=== PATIENT | female | born 1975 | race Caucasian/White ===

== ENCOUNTER 2017-10-27 11:49 | Emergency (ER) | payer OTHER ==
[2017-10-27] MEDS ORDERED: HYDROCODONE/APAP 10/325 TAB ONE (13:47)
--- NOTE | 2017-10-27 14:14 | RAD REPORT ---
EXAM DESCRIPTION: VAS - LEFT Extremity Venous Uni Ltd - 10/27/2017 2:02 pm CLINICAL HISTORY: Left leg pain and swelling COMPARISON: December 2015 TECHNIQUE: Real-time sonographic evaluation of the right lower extremity deep venous systems was per formed. FINDINGS: Normal compressibility, flow augmentation, phasic flow and spontaneous flow are identified in the left lower extremity common femoral, superficial femoral, popliteal and posterior tibial vein s. No intraluminal filling defects seen. IMPRESSION: No DVT in the left lower extremity.
--- NOTE | 2017-10-27 14:25 | EDPHYS ---
Physician Documentation [facility] Name: Sherita Patel Age: 42 yrs Sex: Female : 1975 Arrival Date: 10/27/2017 Time: 11:55 Bed 24 Private MD: ED Physician Abhi Arroyo HPI: 10/27 13:52 This 42 yrs old Female presents to ER via Ambulatory with complaints of Leg rn Pain. 13:52 The patient presents with pain, that is acute. rn 13:52 The complaints affect the lateral aspect of left thigh. Onset: The symptoms/episode rn began/occurred 1 week(s) ago. Modifying factors: The symptoms are alleviated by nothing. the symptoms are aggravated by nothing. Associated signs and symptoms: Pertinent positives: swelling, Pertinent negatives fever, weakness. Severity of symptoms: At their worst the symptoms were mild, in the emergency department the symptoms are unchanged. The patient has not experienced similar symptoms in the past. Reports has had blood clot before, not on blood thinners, reports left lateral leg pain for 1 week, no trauma, no fever, no signs of infection.. 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 - Social history:: Smoking status: Patient/guardian denies using tobacco. - Ebola Screening: : Patient negative for fever greater than or equal to 101.5 degrees Fahrenheit, and additional compatible Ebola Virus Disease symptoms Patient denies exposure to infectious person Patient denies travel to an Ebola-affected area in the 21 days before illness onset No symptoms or risks identified at this time. - Family history:: not pertinent. - Hospitalizations: : No recent hospitalization is reported. ROS: 13:52 Constitutional: Negative for fever, chills, and weight loss, Eyes: Negative for injury, rn pain, redness, and discharge, Cardiovascular: Negative for chest pain, palpitations, and edema, Respiratory: Negative for shortness of breath, cough, wheezing, and pleuritic chest pain, Abdomen/GI: Negative for abdominal pain, nausea, vomiting, diarrhea, and constipation, Back: Negative for injury and pain, MS/Extremity: + left lateral thigh pain Skin: Negative for injury, rash, and discoloration, Neuro: Negative for headache, weakness, numbness, tingling, and seizure. Exam: 13:52 Constitutional: This is a well developed, well nourished patient who is awake, alert, rn and in no acute distress. Cardiovascular: Regular rate and rhythm with a normal S1 and S2. No gallops, murmurs, or rubs. Normal PMI, no JVD. No pulse deficits. Respiratory: Lungs have equal breath sounds bilaterally, clear to auscultation and percussion. No rales, rhonchi or wheezes noted. No increased work of breathing, no retractions or nasal flaring. Skin: Warm, dry with normal turgor. Normal color with no rashes, no lesions, and no evidence of cellulitis. MS/ Extremity: Pulses equal, no cyanosis. Neurovascular intact. Full, normal range of motion. Equal circumference. Bilateral 1+ pitting edema bilateral lower ext Vital Signs: 12:12 BP 162 / 96; Pulse 89; Resp 17; Temp 97.9; Pulse Ox 99% on R/A; Weight 122.47 kg; aj Height 5 ft. 6 in. (167.64 cm); 14:43 BP 156 / 88; Pulse 80; Resp 15; Pulse Ox 99% on R/A; kr2 12:12 Body Mass Index 43.58 (122.47 kg, 167.64 cm) aj MDM: 13:04 Patient medically screened. rn 14:23 Differential diagnosis: superficial thrombophlebitis, DVT, edema, radiculopathy, rn neuropathy. Data reviewed: vital signs, nurses notes, radiologic studies, doppler, and as a result, I will discharge patient. Counseling: I had a detailed discussion with the patient and/or guardian regarding: the historical points, exam findings, and any diagnostic results supporting the discharge/admit diagnosis, radiology results, the need for outpatient follow up, to return to the emergency department if symptoms worsen or persist or if there are any questions or concerns that arise at home. Special discussion: I discussed with the patient/guardian in detail that at this point there is no indication for admission to the hospital. It is understood, however, that if the symptoms persist or worsen the patient needs to return immediately for re-evaluation. Based on the history and exam findings, there is no indication for further emergent testing or inpatient evaluation. I discussed with the patient/guardian the need to see the primary care provider for further evaluation of the symptoms. 10/27 13:19 Order name: Extremity Venous Uni Ltd ; Complete Time: 14:20 rn Administered Medications: 13:47 Drug: [place] 10 mg-325 mg 1 tabs Route: PO; kr2 14:42 Follow up: Response: No adverse reaction; Pain is decreased kr2 Disposition: 10/27/17 14:24 Discharged to Home. Impression: Pain in left leg. - Condition is Stable. - Discharge Instructions: Musculoskeletal Pain, Pain Without a Known Cause. - Medication Reconciliation Form, Thank You Letter, Antibiotic Education, Prescription Opioid Use form. - Follow up: Private Physician; When: As needed; Reason: Recheck today's complaints, Re-evaluation by your physician. - Problem is an ongoing problem. - Symptoms are unchanged. Signatures: Dispatcher [employer] EDInga Jorge RN RN aj Nieto, Roman, MD MD rn Reaves, Karey, RN RN kr2 Corrections: (The following items were deleted from the chart) 14:44 14:24 10/27/2017 14:24 Discharged to Home. Impression: Pain in left leg. Condition is kr2 Stable. Forms are Medication Reconciliation Form, Thank You Letter, Antibiotic Education, Prescription Opioid Use. Follow up: Private Physician; When: As needed; Reason: Recheck today's complaints, Re-evaluation by your physician. Problem is an ongoing problem. Symptoms are unchanged. rn
--- NOTE | 2017-10-27 14:25 | ER ---
Nurse's Notes [facility] Name: Sherita Patel Age: 42 yrs Sex: Female : 1975 Arrival Date: 10/27/2017 Time: 11:55 Bed 24 Private MD: Diagnosis: Pain in left leg Presentation: 10/27 12:08 Presenting complaint: Patient states: Pain to left outer thigh for 1 week. Denies SOB. aj Transition of care: patient was not received from another setting of care. Onset of symptoms was October 21, 2017. Risk Assessment: Do you want to hurt yourself or someone else? Patient reports no desire to harm self or others. Initial Sepsis Screen: Does the patient meet any 2 criteria? No. Patient's initial sepsis screen is negative. Does the patient have a suspected source of infection? No. Patient's initial sepsis screen is negative. Care prior to arrival: None. 12:08 Method Of Arrival: Ambulatory aj 12:08 Acuity: ERNST 4 aj Triage Assessment: 12:10 General: Appears in no apparent distress. comfortable, Behavior is calm, cooperative, aj appropriate for age. Pain: Complains of pain in lateral aspect of left thigh. Neuro: Level of Consciousness is awake, alert, obeys commands, Oriented to person, place, time, situation, Appropriate for age. Respiratory: Airway is patent Respiratory effort is even, unlabored, Respiratory pattern is regular, symmetrical. Derm: Skin is intact, is healthy with good turgor, Skin is pink, warm \T\ dry. normal. 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 - Social history:: Smoking status: Patient/guardian denies using tobacco. - Ebola Screening: : Patient negative for fever greater than or equal to 101.5 degrees Fahrenheit, and additional compatible Ebola Virus Disease symptoms Patient denies exposure to infectious person Patient denies travel to an Ebola-affected area in the 21 days before illness onset No symptoms or risks identified at this time. - Family history:: not pertinent. - Hospitalizations: : No recent hospitalization is reported. Screenin:24 Abuse screen: Denies threats or abuse. Denies injuries from another. Nutritional kr2 screening: No deficits noted. Tuberculosis screening: No symptoms or risk factors identified. Fall Risk None identified. Assessment: 13:21 General: Appears in no apparent distress. uncomfortable, obese, well groomed, Behavior kr2 is calm, cooperative, appropriate for age. Pain: Complains of pain in lateral aspect of left thigh Pain does not radiate. Pain currently is 6 out of 10 on a pain scale. Quality of pain is described as gnawing, Is continuous, Alleviated by nothing. Aggravated by touch. Neuro: Level of Consciousness is awake, alert, obeys commands, Oriented to person, place, time, situation, Appropriate for age. Cardiovascular: Capillary refill < 3 seconds in bilateral fingers Patient's skin is warm and dry. Cardiovascular: Edema is 1+ to bilateral lower legs and feet pitting to bilateral lower legs and feet. Respiratory: Airway is patent Respiratory effort is even, unlabored. GI: Abdomen is non-distended, obese. : Urine is cloudy. EENT: Oral mucosa is moist. Derm: Skin is intact, is healthy with good turgor, Skin is pink, warm \T\ dry. Derm: Musculoskeletal: Circulation, motion, and sensation intact. Injury Description: Patient denies injury. 14:42 Reassessment: Patient appears in no apparent distress at this time. Patient and/or kr2 family updated on plan of care and expected duration. Pain level reassessed. Patient is alert, oriented x 3, equal unlabored respirations, skin warm/dry/pink. Patient states feeling better. Patient states symptoms have improved. Vital Signs: 12:12 BP 162 / 96; Pulse 89; Resp 17; Temp 97.9; Pulse Ox 99% on R/A; Weight 122.47 kg; aj Height 5 ft. 6 in. (167.64 cm); 14:43 BP 156 / 88; Pulse 80; Resp 15; Pulse Ox 99% on R/A; kr2 12:12 Body Mass Index 43.58 (122.47 kg, 167.64 cm) aj ED Course: 11:55 Patient arrived in ED. as 12:09 Triage completed. aj 12:12 Arm band placed on left wrist. Patient placed in waiting room, Patient notified of wait aj time. 13:03 Nicole Hamilton, RN is Primary Nurse. kr2 13:04 Abhi Arroyo MD is Attending Physician. rn 13:25 Patient has correct armband on for positive identification. Bed in low position. Call kr2 light in reach. Side rails up X 1. Adult w/ patient. Pulse ox on. NIBP on. Door closed. Warm blanket given. Head of bed elevated. 14:02 Extremity Venous Uni Ltd US In Process Unspecified. EDMS 14:43 No provider procedures requiring assistance completed. Patient did not have IV access kr2 during this emergency room visit. Administered Medications: 13:47 Drug: [place] 10 mg-325 mg 1 tabs Route: PO; kr2 14:42 Follow up: Response: No adverse reaction; Pain is decreased kr2 Outcome: 14:24 Discharge ordered by . rn 14:43 Discharged to home ambulatory, with family. kr2 14:43 Condition: good 14:43 Discharge instructions given to patient, Instructed on discharge instructions, follow up and referral plans. Demonstrated understanding of instructions, follow-up care. 14:44 Patient left the ED. kr2 Signatures: Dispatcher [employer] EDInga Jorge RN RN aj Martinez, Amelia as Abhi Arroyo MD MD rn Reaves, Karey, RN RN kr2
[2017-10-27 14:55] VITALS: TEMP 97.9; O2SAT 99
[2017-10-27 14:57] VITALS: BP 156/88
== END 2017-10-27 14:44 | disposition home or self-care (01) ==
LOC: ER 11:49
DX: M79.605 Pain in left leg (principal); E11.9 Type 2 diabetes mellitus without complications; Z79.4 Long term (current) use of insulin; Z91.013 Allergy to seafood
CPT/HCPCS: 93971; 99284

== ENCOUNTER 2017-11-11 20:23 | Inpatient (IN) | payer OTHER ==
[2017-11-11 21:10] LABS: Absolute Lymphocytes (CBC) 0.8 K/uL (0.7-4.9); Absolute Monocytes 0.7 K/uL (0.1-1.3); Absolute Neutrophil 7.8 K/uL (1.8-8.0); Basophils % 0.2 % (0-1.3); Eosinophils % 2.3 % (0-4.4); Hematocrit 23.2 % (36.0-45.0); Lymphocytes % 8.7 % (15.3-44.8); MCH 29.8 pg (27.0-35.0); MPV 9.5 fL (7.6-11.3); Monocytes % 7.7 % (3.3-12.3); RBC Red Blood Cell Count 2.64 M/uL (3.86-4.86)
[2017-11-11 21:12] LABS: Protime INR 0.94
--- NOTE | 2017-11-11 21:20 | RAD REPORT ---
EXAM DESCRIPTION: RAD - Chest Single View - 11/11/2017 9:08 pm CLINICAL HISTORY: SOB Chest pain. COMPARISON: Chest Single View dated 12/19/2015Chest Single View dated 12/19/2015 FINDINGS: Portable technique limits examination quality. Mild interstitial pulmonary edema is suspected. The heart is mildly enlarged in size. No displaced fr actures. IMPRESSION: Mild CHF/volume overload pattern.
[2017-11-11 21:26] LABS: ALT/SGPT 31 U/L (12-78); AST/SGOT 29 U/L (15-37); Albumin 2.1 g/dL (3.4-5.0); Alkaline Phosphatase 81 U/L (45-117); BUN Blood Urea Nitrogen 45 mg/dL (7-18); Bicarbonate 24 mmol/L (21-32); Bilirubin Direct < 0.1 mg/dL (0-0.2); Bilirubin Total 0.1 mg/dL (0.2-1.0); Glucose Level 187 mg/dL (74-106); Magnesium 2.8 mg/dL (1.8-2.4); NT PRO-BNP 1529 pg/mL (<125); Potassium 4.2 mmol/L (3.5-5.1); Protein, Total 6.6 g/dL (6.4-8.2); Sodium Level 143 mmol/L (136-145)
--- NOTE | 2017-11-11 22:00 | RAD REPORT ---
EXAM DESCRIPTION: VAS - Extrem Venous W Compress Derek - 11/11/2017 9:51 pm CLINICAL HISTORY: SWELLING Bilateral leg edema and swelling. COMPARISON: Extremity Venous Uni Ltd dated 10/27/2017Extremity Venous Uni Ltd dated 10/27/2017 TECHNIQUE: Real-time sonographic interrogation of the left and right lower extremity deep venous sys tems was performed. FINDINGS: Normal compressibility, flow augmentation, phasic flow and spontaneous flow is identified in both the left and right lower extremity deep venous systems. IMPRESSION: No sonographic evidence of left or right lower extremity deep venous thrombosis.
[2017-11-11] MEDS ORDERED: FUROSEMIDE 40 MG/4 ML VIAL ONE (22:23)
[2017-11-11] MEDS ORDERED: FUROSEMIDE 20 MG/ 2ML VIAL ONE (22:23)
--- NOTE | 2017-11-11 22:23 | EDPHYS ---
Physician Documentation [facility] Name: Sherita Patel Age: 42 yrs Sex: Female : 1975 Arrival Date: 11/11/2017 Time: 20:24 Bed 30 Private MD: ED Physician Moisés Holloway HPI: 11/11 22:14 This 42 yrs old Female presents to ER via Wheelchair with complaints of gs Breathing Difficulty. 22:14 The patient has shortness of breath at rest. Onset: The symptoms/episode began/occurred gs gradually, 2 day(s) ago, and became worse. Duration: The symptoms are continuous. The patient's shortness of breath is aggravated by exertion. Associated signs and symptoms: Pertinent negatives: chest pain. Associated signs and symptoms: Pertinent positives: swelling extremities. Severity of symptoms: At their worst the symptoms were moderate in the emergency department the symptoms are unchanged. The patient has experienced similar episodes in the past, a few times. 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 - Social history:: Smoking status: Patient/guardian denies using tobacco. - Ebola Screening: : Patient negative for fever greater than or equal to 101.5 degrees Fahrenheit, and additional compatible Ebola Virus Disease symptoms Patient denies exposure to infectious person Patient denies travel to an Ebola-affected area in the 21 days before illness onset No symptoms or risks identified at this time. ROS: 22:14 All other systems are negative. gs Exam: 22:14 Head/Face: Normocephalic, atraumatic. Eyes: Pupils equal round and reactive to light, gs extra-ocular motions intact. Lids and lashes normal. Conjunctiva and sclera are non-icteric and not injected. Cornea within normal limits. Periorbital areas with no swelling, redness, or edema. ENT: Nares patent. No nasal discharge, no septal abnormalities noted. Tympanic membranes are normal and external auditory canals are clear. Oropharynx with no redness, swelling, or masses, exudates, or evidence of obstruction, uvula midline. Mucous membranes moist. Neck: Trachea midline, no thyromegaly or masses palpated, and no cervical lymphadenopathy. Supple, full range of motion without nuchal rigidity, or vertebral point tenderness. No Meningismus. Chest/axilla: Normal chest wall appearance and motion. Nontender with no deformity. No lesions are appreciated. 22:14 Abdomen/GI: Soft, non-tender, with normal bowel sounds. No distension or tympany. No guarding or rebound. No evidence of tenderness throughout. Back: No spinal tenderness. No costovertebral tenderness. Full range of motion. Skin: Warm, dry with normal turgor. Normal color with no rashes, no lesions, and no evidence of cellulitis. MS/ Extremity: Pulses equal, no cyanosis. Neurovascular intact. Full, normal range of motion. Neuro: Awake and alert, GCS 15, oriented to person, place, time, and situation. Cranial nerves II-XII grossly intact. Motor strength 5/5 in all extremities. Sensory grossly intact. Cerebellar exam normal. Normal gait. 22:14 Constitutional: The patient appears alert, awake, uncomfortable. 22:14 Cardiovascular: Rate: tachycardic, Rhythm: regular, Pulses: no pulse deficits are appreciated, Heart sounds: murmur, not appreciated. 22:14 Cardiovascular: Edema: 3+ edema to level of left midcalf and right midcalf. 22:14 ECG was reviewed by the Attending Physician. 22:14 Respiratory: the patient does not display signs of respiratory distress, Respirations: tachypnea, Breath sounds: rales, that are mild, are located in both bases. Vital Signs: 20:34 BP 157 / 90; Pulse 98; Resp 22; Temp 98.7; Pulse Ox 96% on R/A; Weight 122.47 kg; aj Height 5 ft. 6 in. (167.64 cm); 22:27 BP 134 / 118; Pulse 105; Resp 18; Pulse Ox 97% on R/A; tl3 23:26 BP 189 / 105; Pulse 105; Resp 18; Pulse Ox 98% on R/A; tl3 20:34 Body Mass Index 43.58 (122.47 kg, 167.64 cm) aj MDM: 20:32 Patient medically screened. 22:14 Differential diagnosis: CHF exacerbation, Chronic Obstructive Pulmonary Disease gs Myocardial Infarction pulmonary edema, Pulmonary Embolism. Data reviewed: vital signs, nurses notes. 22:14 ED course: hx pe elevated cr will give lovenox get vq in am, treated chf with lasix gs most likely diagnosis. 11/11 20:33 Order name: Basic Metabolic Panel; Complete Time: 21:30 11/11 20:33 Order name: CBC with Diff; Complete Time: 21:30 11/11 20:33 Order name: LFT's; Complete Time: 21:30 11/11 20:33 Order name: Magnesium; Complete Time: 21:30 11/11 20:33 Order name: NT PRO-BNP; Complete Time: 21:30 11/11 20:33 Order name: PT-INR; Complete Time: 21:30 11/11 20:33 Order name: Troponin (emerg Dept Use Only); Complete Time: 21:30 11/11 20:33 Order name: XRAY Chest (1 view); Complete Time: 21:30 11/11 20:33 Order name: D-Dimer; Complete Time: 21:30 11/11 21:15 Order name: US Extremity Venous W Compression Derek; Complete Time: 22:24 11/11 23:24 Order name: Urine Dipstick--Ancillary (enter results) [facility] 11/11 23:24 Order name: Urine --Ancillary (enter results) [facility] 11/11 20:33 Order name: EKG; Complete Time: 20:34 11/11 20:33 Order name: Cardiac monitoring; Complete Time: 21:05 11/11 20:33 Order name: EKG - Nurse/Tech; Complete Time: 22:24 11/11 20:33 Order name: IV Saline Lock; Complete Time: 21:05 11/11 20:33 Order name: Labs collected and sent; Complete Time: 21:05 11/11 20:33 Order name: O2 Per Protocol; Complete Time: 21:05 11/11 20:33 Order name: O2 Sat Monitoring; Complete Time: 21:05 11/11 20:33 Order name: Urine Dipstick-Ancillary (obtain specimen); Complete Time: 23:06 EC:14 Rate is 100 beats/min. Rhythm is regular. RI interval is normal. QRS interval is gs normal. QT interval is normal. No ST changes noted. Clinical impression: Abnormal EKG without significant change. Interpreted by me. Administered Medications: 22:10 Drug: Lasix 60 mg Route: IVP; Infused Over: 3 mins; Site: left antecubital; tl3 22:35 Follow up: Response: No adverse reaction tl3 22:40 Drug: Lovenox 1 mg/kg {Note: 120 mg.} Route: Sub-Q; Site: abdomen; tl3 23:06 Follow up: Response: No adverse reaction tl3 Disposition: 22:14 Critical Care:. Disposition: 11/11/17 22:22 Hospitalization ordered by Brendan Gallego for Inpatient Admission. Preliminary diagnosis is Acute combined systolic (congestive) and diastolic (congestive) heart failure. - Bed requested for Telemetry/MedSurg (Inpatient). - Status is Inpatient Admission. tl3 - Condition is Stable. - Problem is new. - Symptoms have improved. UTI on Admission? No Critical care time excluding procedures: 22:14 Critical care time: Bedside Care: 10 minutes, Consultation: 10 minutes, Family Intervention: 10 minutes. Total time: 30 minutes Signatures: Dispatcher [facility] Meagan Mesa RN RN kl Myers, Amanda, RN RN aj Starr, Gregory, MD MD Meghana Ramachandran RN RN tl3 Corrections: (The following items were deleted from the chart) 22:35 21:15 Chest For PE Angio+CT.RAD.BRZ ordered. [facility] 23:17 22:22 Hospitalization Ordered by Brendan Gallego MD for Inpatient Admission. Preliminary diagnosis is Acute combined systolic (congestive) and diastolic (congestive) heart failure. Bed requested for Telemetry/MedSurg (Inpatient). Status is Inpatient Admission. Condition is Stable. Problem is new. Symptoms have improved. UTI on Admission? No. 23:51 23:17 11/11/2017 22:22 Hospitalization Ordered by Brendan Gallego MD for Inpatient tl3 Admission. Preliminary diagnosis is Acute combined systolic (congestive) and diastolic (congestive) heart failure. Bed requested for Telemetry/MedSurg (Inpatient). Status is Inpatient Admission. Condition is Stable. Problem is new. Symptoms have improved. UTI on Admission? No. kl
--- NOTE | 2017-11-11 22:23 | ER ---
Nurse's Notes [facility] Name: Sherita Patel Age: 42 yrs Sex: Female : 1975 Arrival Date: 11/11/2017 Time: 20:24 Bed 30 Private MD: Diagnosis: Acute combined systolic (congestive) and diastolic (congestive) heart failure Presentation: 11/11 20:32 Presenting complaint: Patient states: Swelling to hands and feet with SOB for 2 days. aj Transition of care: patient was not received from another setting of care. Onset of symptoms was November 09, 2017. Risk Assessment: Do you want to hurt yourself or someone else? Patient reports no desire to harm self or others. Initial Sepsis Screen: Does the patient meet any 2 criteria? No. Patient's initial sepsis screen is negative. Does the patient have a suspected source of infection? No. Patient's initial sepsis screen is negative. Care prior to arrival: None. 20:32 Method Of Arrival: Wheelchair aj 20:32 Acuity: ERNST 3 aj Triage Assessment: 20:34 General: Appears in no apparent distress. comfortable, Behavior is calm, cooperative, aj appropriate for age. Pain: Denies pain. Neuro: Level of Consciousness is awake, alert, obeys commands, Oriented to person, place, time, situation, Appropriate for age. Cardiovascular: Edema is 3+ to left midcalf, left ankle, left foot, right midcalf, right ankle and right foot pitting to left ankle, left foot, right ankle and right foot. Respiratory: Reports shortness of breath at rest on exertion Airway is patent Respiratory effort is even, unlabored, Respiratory pattern is regular, symmetrical, Onset: The symptoms/episode began/occurred gradually, the patient has mild shortness of breath. Derm: Skin is intact, is healthy with good turgor, Skin is pale. 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 - Social history:: Smoking status: Patient/guardian denies using tobacco. - Ebola Screening: : Patient negative for fever greater than or equal to 101.5 degrees Fahrenheit, and additional compatible Ebola Virus Disease symptoms Patient denies exposure to infectious person Patient denies travel to an Ebola-affected area in the 21 days before illness onset No symptoms or risks identified at this time. Screenin:02 Abuse screen: Denies threats or abuse. Nutritional screening: No deficits noted. tl3 Tuberculosis screening: No symptoms or risk factors identified. Fall Risk None identified. Assessment: 21:02 General: Appears uncomfortable, obese, well groomed, well developed, well nourished, tl3 Behavior is calm, cooperative, appropriate for age. Pain: Denies pain. Neuro: No deficits noted. Level of Consciousness is awake, alert, obeys commands, Oriented to person, place, time, situation, Appropriate for age. Cardiovascular: Patient's skin is warm and dry. Respiratory: Airway is patent Respiratory effort is even, unlabored, Respiratory pattern is regular, symmetrical, Breath sounds are diminished bilaterally. Respiratory: Reports shortness of breath air hunger since yesterday. GI: No signs and/or symptoms were reported involving the gastrointestinal system. : No signs and/or symptoms were reported regarding the genitourinary system. EENT: No signs and/or symptoms were reported regarding the EENT system. Derm: No signs and/or symptoms reported regarding the dermatologic system. Musculoskeletal: No signs and/or symptoms reported regarding the musculoskeletal system. 22:27 Reassessment: Patient appears in no apparent distress at this time. No changes from tl3 previously documented assessment. Patient and/or family updated on plan of care and expected duration. Pain level reassessed. Patient is alert, oriented x 3, equal unlabored respirations, skin warm/dry/pink. pt resting quietly. 22:41 General: Dr Gallego at bedside. tl3 23:26 Cardiovascular: Rhythm is regular. tl3 23:26 Reassessment: Patient appears in no apparent distress at this time. No changes from tl3 previously documented assessment. Patient and/or family updated on plan of care and expected duration. Pain level reassessed. Patient is alert, oriented x 3, equal unlabored respirations, skin warm/dry/pink. report called to Gretchen GARCIAS. Vital Signs: 20:34 BP 157 / 90; Pulse 98; Resp 22; Temp 98.7; Pulse Ox 96% on R/A; Weight 122.47 kg; aj Height 5 ft. 6 in. (167.64 cm); 22:27 BP 134 / 118; Pulse 105; Resp 18; Pulse Ox 97% on R/A; tl3 23:26 BP 189 / 105; Pulse 105; Resp 18; Pulse Ox 98% on R/A; tl3 20:34 Body Mass Index 43.58 (122.47 kg, 167.64 cm) aj ED Course: 20:24 Patient arrived in ED. ds1 20:30 Moisés Holloway MD is Attending Physician. gs 20:33 Triage completed. aj 20:34 Arm band placed on left wrist. Patient placed in an exam room. aj 21:01 Meghana Ramachandran, RN is Primary Nurse. tl3 21:02 Patient has correct armband on for positive identification. Bed in low position. Call tl3 light in reach. Side rails up X 1. Adult w/ patient. Pulse ox on. NIBP on. 21:02 No provider procedures requiring assistance completed. Inserted saline lock: 20 gauge tl3 in left antecubital area, using aseptic technique. Blood collected. 21:05 XRAY Chest (1 view) Sent. tl3 21:08 X-ray completed. Portable x-ray completed in exam room. Patient tolerated procedure bb2 well. 21:08 XRAY Chest (1 view) In Process Unspecified. EDMS 21:12 Notified ED physician of a critical lab result(s). hemoglobin of 7.8. fc 21:13 Notified ED physician of a critical lab result(s). d dimer 2288. fc 21:18 Radiology exam delayed due to lab results not completed at this time. (BUN/Creatinine). vm2 21:51 US Extremity Venous W Compression Derek In Process Unspecified. EDMS 21:53 Ultrasound completed. Patient tolerated well. aa4 22:22 Brendan Gallego MD is Hospitalizing Provider. 22:27 EKG done, by ED staff, reviewed by Moisés Holloway MD. tl3 23:26 Patient admitted, IV remains in place. tl3 23:31 Urine --Ancillary (enter results) Sent. tl3 23:31 Urine Dipstick--Ancillary (enter results) Sent. tl3 Administered Medications: 22:10 Drug: Lasix 60 mg Route: IVP; Infused Over: 3 mins; Site: left antecubital; tl3 22:35 Follow up: Response: No adverse reaction tl3 22:40 Drug: Lovenox 1 mg/kg {Note: 120 mg.} Route: Sub-Q; Site: abdomen; tl3 23:06 Follow up: Response: No adverse reaction tl3 Outcome: 22:22 Decision to Hospitalize by Provider. gs 23:26 Admitted to Tele accompanied by tech, via stretcher, with chart, Report called to tl3 Gretchen GARCIAS 23:26 Condition: stable 23:26 Instructed on the need for admit, Demonstrated understanding of instructions. 23:51 Patient left the ED. tl3 Signatures: Dispatcher [employer] EDInga Jorge, RN RN Yany Pacheco, RN RN Elif Marquez ds1 Inga Jacobo aa4 Cristina Barahona 2 Moisés Holloway MD MD Lisa Heath 2 Meghana Ramachandran, RN RN tl3
[2017-11-11] MEDS ORDERED: ENOXAPARIN 100 MG/ML SYR SQ ONE (22:37)
[2017-11-11] MEDS ORDERED: ENOXAPARIN 30 MG/0.3 ML SQ ONE (22:38)
--- NOTE | 2017-11-11 23:10 | P.HP ---
Certification for Inpatient Patient admitted to: Inpatient With expected LOS: >2 Midnights Practitioner: I am a practitioner with admitting privileges, knowledge of patient current condition, hospital course, and medical plan of care. Services: Services provided to patient in accordance with Admission requirements found in Title 42 Section 412.3 of the Code of Federal Regulations Patient History Date of Service: 11/11/17 Reason for admission: Dyspnea/CHF History of Present Illness: Ms Patel a 42-year-old woman with history of PE, is independent diabetic mellitus, asthma, chronic anemia, for about 1 month ago she starts noticing lower extremity swelling. The over the time, she was getting worse. Then she started having shortness of breath which was progressively getting worse. Today she came to ED because she was unable to sleep flat, due to SOB, as her legs got more swollen. ED workup was remarkable for elevated D-dimer, hemoglobin of 7.6 mg/dl. The patient denied any black or bloody stools. She already had an EGD and a colonoscopy which were negative. She denied any chest pain, fever or chills. Allergies shellfish derived Allergy (Verified 12/18/15 23:51) Rash Home medications list reviewed: Yes Home Medications: Insulin Glargine,Hum.rec.anlog [Toujeo Solostar] 40 units SQ BID 12/19/15 Insulin Lispro [Humalog] 18 units SQ ACHS 12/19/15 Lisinopril [Prinivil*] 1 tab PO DAILY 12/19/15 Fluticasone/Salmeterol [Advair 250/50 Diskus*] 1 puff IH BID #1 disk 12/20/15 - Past Medical/Surgical History Diabetic: Yes -: Diabetic -: Seizures -: Stroke -: Prev seizure 2 yrs ago -: Asthma -: Tubal ligation -: c section - Family History Mother -: Hypertension - Social History Smoking Status: Former smoker Alcohol use: Yes CD- Drugs: No Caffeine use: Yes Place of Residence: Home Review of Systems 10-point ROS is otherwise unremarkable Physical Examination - Physical Exam General: Alert, In no apparent distress HEENT: Atraumatic, PERRLA, Mucous membr. moist/pink, EOMI, Sclerae nonicteric Neck: Supple, 2+ carotid pulse no bruit, No LAD, Without JVD or thyroid abnormality Respiratory: Clear to auscultation bilaterally, Normal air movement Cardiovascular: Regular rate/rhythm, Normal S1 S2 Gastrointestinal: Normal bowel sounds, No tenderness Musculoskeletal: No tenderness, Swelling Integumentary: Skin breakdown, Skin lesion, Diabetic ulcer Neurological: Normal speech, Normal strength at 5/5 x4 extr, Normal tone, Normal affect Lymphatics: No axilla or inguinal lymphadenopathy - Studies Laboratory Data (last 24 hrs) 11/11/17 20:50: PT 11.1, INR 0.94 11/11/17 20:50: WBC 9.6, Hgb 7.8 L*, Hct 23.2 L, Plt Count 284 11/11/17 20:50: Sodium 143, Potassium 4.2, BUN 45 H, Creatinine 1.60 H, Glucose 187 H, Magnesium 2.8 H, Total Bilirubin 0.1 L, AST 29, ALT 31, Alkaline Phosphatase 81 Assessment and Plan - Problems (Diagnosis) (1) Diabetes mellitus Current Visit: Yes Status: Acute Qualifiers: Diabetes mellitus type: type 2 Diabetes mellitus fdc insulin use: with fdc use Diabetes mellitus complication status: with skin complications Diabetes mellitus complication detail: with other skin complication Qualified Code(s): E11.628 - Type 2 diabetes mellitus with other skin complications; Z79.4 - manager intermediate (current) use of insulin (2) CHF (congestive heart failure) Current Visit: Yes Status: Acute Qualifiers: Heart failure type: unspecified Heart failure chronicity: unspecified Qualified Code(s): I50.9 - Heart failure, unspecified (3) Elevated d-dimer Current Visit: Yes Status: Acute (4) Shortness of breath Current Visit: No Status: Acute (5) Chronic anemia Current Visit: Yes Status: Acute - Plan The patient will be admitted to the hospital due to CHF exacerbation. She has elevated D-dimer as well, due to abnormal kidney function, she cannot have a CTA of the chest. Will order a V/Q scan in the morning to rule out PE. Will start empiric full dose of Lovenox, IV Lasix. Will order echocardiogram in a.m. She has history of chronic anemia, will order iron studies. - Advance Directives Does patient have a Living Will: No Does patient have a Durable POA for Healthcare: No - Code Status/Comfort Care Code Status Assessed: Yes Code Status: Full Code
[2017-11-12 00:03] LABS: Urine Blood 1+ (NEG); Urine Glucose TRACE (NEG); Urine Protein 3+ (NEG); Urine Specific Gravity >1.030 (1.005-1.030); Urine pH 5.5 (5.0-7.0)
[2017-11-12] MEDS ORDERED: ONDANSETRON 4 MG/2 ML VIAL IV PRN (00:34)
[2017-11-12] MEDS ORDERED: HYDRALAZINE HCL 20 MG/ML VIAL IV ONE (00:39)
[2017-11-12] MEDS: FUROSEMIDE 40 MG/4 ML VIAL IV SCH ×3 (01:00→22:01)
[2017-11-12] MEDS: ALBUTEROL 2.5 MG/3 ML NEB SOL NEB PRN ×3 (01:45→19:50)
[2017-11-12] MEDS: IPRATROPIUM BROM 0.5MG/2.5ML NEB PRN ×2 (01:45→08:06)
[2017-11-12 06:05] LABS: Absolute Lymphocytes (CBC) 0.7 K/uL (0.7-4.9); Absolute Monocytes 0.6 K/uL (0.1-1.3); Absolute Neutrophil 7.7 K/uL (1.8-8.0); Basophils % 0.2 % (0-1.3); Eosinophils % 0.9 % (0-4.4); Hematocrit 21.8 % (36.0-45.0); Lymphocytes % 7.5 % (15.3-44.8); MCH 30.2 pg (27.0-35.0); MCV 86.8 fL (80-100); MPV 10.2 fL (7.6-11.3); Monocytes % 6.3 % (3.3-12.3); RBC Red Blood Cell Count 2.51 M/uL (3.86-4.86)
[2017-11-12 06:27] LABS: Ferritin 230.5 ng/mL (8-388); Potassium 4.1 mmol/L (3.5-5.1)
[2017-11-12] MEDS: INSULIN -REGULAR HUMAN 50 UNIT/0.5 ML ML SQ SCH ×4 (07:30→21:00)
--- NOTE | 2017-11-12 08:30 | EKG ---
Test Date: 2017-11-11 Test Time: 22:08:19 Control Engineer: TL MEASUREMENT RESULTS: Intervals: Rate: 103 AL: 154 QRSD: 84 QT: 348 QTc: 455 Fallentimber: P: 111 AL: 154 QRS: 165 T: 143 INTERPRETIVE STATEMENTS: Suspect arm lead reversal, interpretation assumes no reversal Sinus tachycardia Right axis deviation Abnormal ECG Compared to ECG 12/19/2015 06:59:39 Right-axis deviation now present Sinus rhythm no longer present Electronically Signed On 11-12-17 07:47:08 CDT by Rufus Frankel
--- NOTE | 2017-11-12 08:41 | RAD REPORT ---
EXAM DESCRIPTION: NM - Vent Perfusion VQ Scan - 11/12/2017 7:40 am CLINICAL HISTORY: Chest pain, shortness of breath COMPARISON: Chest film November 11, V/Q study December 2015 TECHNIQUE: The patient was administered 20.2 mCi Xenon 133 gas with posterior projection inspiration , equilibrium, and washout views obtained. The patient was then administered 7.0 mCi Tc-99m MAA label ed RBCs followed by standard 8 view protocol. FINDINGS: There is good distribution of the Xenon with no ventilation defects identified. No signifi cant air-trapping seen. Perfusion images show no defects suspicious for pulmonary emboli. There are normal areas of diminish ed activity related to prominence of overlying soft tissues. IMPRESSION: No evidence of pulmonary embolism. No ventilation defect or significant air trapping.
[2017-11-12] MEDS ORDERED: CYANOCOBALAMIN 1000MCG/ML INJ IM ONE ×2 (09:53→11:15)
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
[2017-11-12] MEDS ORDERED: GLUCAGON 1 MG/VIAL IM PRN (10:11)
[2017-11-12] MEDS ORDERED: D50W 25 GM/50 ML SYRINGE IV PRN (10:11)
--- NOTE | 2017-11-12 10:42 | RAD REPORT ---
EXAM DESCRIPTION: RAD - Chest Single View - 11/12/2017 10:25 am CLINICAL HISTORY: CHF COMPARISON: November 11 TECHNIQUE: AP portable chest image was obtained 1014 hours . FINDINGS: Lung volumes are low. Interstitial and alveolar opacification is present similar or fracti onally worse from the prior study. Trachea is midline. Heart and vasculature are normal. No measurabl e pleural effusion and no pneumothorax. No gross bony abnormality seen. No acute aortic findings susp ected. IMPRESSION: CHF/volume overload pattern similar or slightly worse than prior day study.
--- NOTE | 2017-11-12 10:42 | CON ---
Chief Complaint: Weight gain, swelling. History Of Present Illness: Ms. Patel is a 42-year-old woman, who has longstanding diabetes. She s ays that over the last month she has gained 40 pounds. She is seeing her weight go up despite taking furosemide 20 mg once a day. She has underlying hypertension and diabetes. She gives a remote hist ory of pulmonary embolus, but the test for pulmonary embolus now is negative. She has chronic anemia . It is normochromic, normocytic, but at the same time she is iron deficient and she may also be B12 deficient and maybe deficiencies of 2 nutrients contributing to the anemia as well as the anemia of chronic disease. Her B12 level is just 276. Outpatient medications have been lisinopril, insulin, A trovent, furosemide, atorvastatin, doxazosin, amlodipine, and albuterol. She had an echocardiogram i 2015 when a similar presentation occurred. She was not as anemic back then. Her hemoglobin was ar ound 10, now it is in the 7s, but her echocardiogram that was normal. The patient does not use tobac co. She uses no illegal drugs. Not having chest pain. Physical Examination: Vital Signs: She is 5 feet 6 inches, 310 pounds. Lungs: Reveal bilateral crackles in the lung bases. Heart: Reveals a regular rate and rhythm. No murmur, rub, or gallop. Abdomen: Soft. Extremities: Edematous. She has presacral edema and abdominal wall edema. Diagnostic Data: The chest x-ray reveals mild interstitial edema, blunted costophrenic angles. Basi c, I think it reveals perhaps mild congestive heart failure. Most of these findings could also be ex plained by abnormal penetration. Impression: The patient is volume overloaded. I think her situation is probably high output cardiac congestive heart failure, but her ejection fraction is normal or hyperdynamic. I would consider giv ing her large doses of B12 to see if that would get her hemoglobin up some. She needs a lot of diuresis and repeat echo. SH/MODL Voice ID: [id number] Report ID: [id number]
[2017-11-12] MEDS ORDERED: VANCOMYCIN 2 GM in NA CHLORIDE 0.9% 500 ML IVPB SCH (11:00)
--- NOTE | 2017-11-12 11:12 | RAD REPORT ---
EXAM DESCRIPTION: US - Renal Ultrasound-Complete - 11/12/2017 10:55 am CLINICAL HISTORY: Acute renal failure, chronic renal disease COMPARISON: None. FINDINGS: The right kidney measures 11.7 x 5.7 x 6.7 cm. The left kidney measures 11.2 x 6.6 x 5.9 cm. Renal cortical thickness and echogenicity are normal. No hydronephrosis or suspicious renal mass. No bladder wall thickening or mass. No intraluminal stone or mass. IMPRESSION: No hydronephrosis or suspicious renal mass. No other significant findings.
--- NOTE | 2017-11-12 12:11 | ECHO ---
HEIGHT: 5 ft 6 in WEIGHT: 310 lb 0 oz DATE OF STUDY: 11/12/[address]: 2-DIMENSIONAL: YES M.MODE: YES DOPPLER: YES COLOR FLOW: YES TDS: NO PORTABLE: NO DEFINITY: NO BUBBLE STUDY: NO DIAGNOSIS: CONGESTIVE HEART FAILURE CARDIAC HISTORY: CATHERIZATION: NO SURGERY: NO PROSTHETIC VALVE: NO PACEMAKER: NO MEASUREMENTS (cm) DIASTOLIC (NORMALS) SYSTOLIC (NORMALS) IVSd 1.1 (0.6-1.2) LA Diam 3.9 (1.9-4.0) LVEF 64% LVIDd 5.4 (3.5-5.7) LVIDs 3.5 (2.0-3.5) %FS 35% LVPWd 1.1 (0.6-1.2) Ao Diam 3.0 (2.0-3.7) 2 DIMENSIONAL ASSESSMENT: RIGHT ATRIUM: NORMAL LEFT ATRIUM: NORMAL RIGHT VENTRICLE: NORMAL LEFT VENTRICLE: NORMAL TRICUSPID VALVE: NORMAL MITRAL VALVE: NORMAL PULMONIC VALVE: NORMAL AORTIC VALVE: NORMAL PERICARDIAL EFFUSION: TRACE AORTIC ROOT: NORMAL LEFT VENTRICULAR WALL MOTION: NORMAL. DOPPLER/COLOR FLOW: NORMAL. COMMENTS: NORMAL LEFT VENTRICULAR EJECTION FRACTION. TRACE PERICARDIAL EFFUSION. OTHERWISE NORMAL 2D ECHOCARDIOGRAM WITH DOPPLER. TECHNOLOGIST: DODIE PAREDES
--- NOTE | 2017-11-12 12:54 | P.CNS ---
Date of Consult: 11/12/17 Primary Care Provider: Dr. Barrett([facility]); GI-Dr. Black Chief Complaint: Dyspnea/CHF History of Present Illness: Patient is 42 years of age patient is 42 years of age she has been complaining of swelling of lower extremity for the past 2 months patient has had shortness of breath on exertion for the past 2-3 years and was recently treated with Lasix he also experienced a burning and her leg near the ankle region on the right side form more smoker no prior history of cardiopulmonary problems recent diagnosis of anemia and was undergoing a workup by GI breathing has improved Allergies shellfish derived Allergy (Mild, Verified 11/11/17 23:57) Itching Home Medications: Insulin Glargine,Hum.rec.anlog [Toujeo Solostar] 20 units SQ BID 12/19/15 Lisinopril [Prinivil*] 2 tab PO DAILY 12/19/15 Albuterol Inhaler [Ventolin Inhaler*] 2 puff IH Q6HP PRN 11/12/17 Amlodipine [Norvasc*] 20 mg PO DAILY 11/12/17 Atorvastatin Calcium 20 mg PO BEDTIME 11/12/17 Doxazosin [Cardura*] 3 mg PO BEDTIME 11/12/17 Furosemide 20 mg PO DAILY 11/12/17 Insulin Lispro [Humalog Kwikpen U-100] See Protocol SQ TID 11/12/17 Ipratropium [Atrovent 0.03% (21MCG)/[place] Nasal*] 2 spray IH BID PRN 11/12/17 Multivitamin [Multivitamins] 1 cap PO DAILY 11/12/17 - Past Medical/Surgical History Diabetic: Yes -: Diabetic -: Seizures -: Stroke -: Prev seizure 2 yrs ago -: Asthma -: PE 12/2015 -: Renal Disease -: Hyperlipidemia -: Tubal ligation -: c section x 2 - Family History Mother Medical History: Hypertension - Social History Alcohol use: Yes CD- Drugs: No Caffeine use: Yes Place of Residence: Home Review of Systems 10-point ROS is otherwise unremarkable General: Weakness Respiratory: Shortness of Breath Cardiovascular: Edema Physical Examination Temp Pulse Resp BP Pulse Ox 97.7 F 108 H 20 181/78 H 91 11/12/17 12:00 11/12/17 12:00 11/12/17 12:00 11/12/17 12:00 11/12/17 12:00 General: Alert, Oriented x3 HEENT: Atraumatic Neck: Supple Respiratory: Clear to auscultation bilaterally Cardiovascular: Normal S1 S2, Edema (+edema) Gastrointestinal: Normal bowel sounds, Soft and benign Laboratory Data (last 24 hrs) 11/11/17 20:50: PT 11.1, INR 0.94 11/11/17 20:50: WBC 9.6, Hgb 7.8 L*, Hct 23.2 L, Plt Count 284 11/11/17 20:50: Sodium 143, Potassium 4.2, BUN 45 H, Creatinine 1.60 H, Glucose 187 H, Magnesium 2.8 H, Total Bilirubin 0.1 L, AST 29, ALT 31, Alkaline Phosphatase 81 - Problems (1) Diastolic heart failure Current Visit: Yes Status: Acute Plan: I strongly suspect that she has diastolic dysfunction continue with Lasix at spironolactone patient's BNP is elevated chest x-ray under penetrated blood pressure elevated V/Q scan negative lower extremity Dopplers also negative patient has a slight fever she also has some protein urea I suspect is from a diabetes she appears to have abundant a cellulitis can change to p.o. antibiotics reduce dose of flow on ox to 40 mg S q.day Dc antibiotics meter changes records clerk to p.o. level Floxin room-air saturation satisfactory Qualifiers: Heart failure chronicity: acute on chronic Qualified Code(s): I50.33 - Acute on chronic diastolic (congestive) heart failure
[2017-11-12] MEDS ORDERED: levoFLOXacin 500 MG TAB PO SCH (14:00)
[2017-11-12] MEDS ORDERED: ENOXAPARIN 40 MG/0.4 ML SQ SCH (14:00)
[2017-11-12 14:14] LABS: Urine Appearance CLOUDY; Urine Bilirubin NEGATIVE (NEG); Urine Blood 2+ (NEG); Urine Color YELLOW; Urine Glucose 1+ (NEG); Urine Protein 3+ (NEG); Urine Specific Gravity 1.015 (1.005-1.030); Urine Urobilinogen 0.2 mg/dL (0.2-1.0); Urine pH 5.5 (5.0-7.0)
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
[2017-11-12 14:19] LABS: Urine Microscopic Reflex ORDER UMIC
[2017-11-12] MEDS: ACETAMINOPHEN 500 MG TAB PO PRN ×2 (14:33→22:53)
[2017-11-12] MEDS: SPIRONOLACTONE 25 MG TABLET PO SCH (14:33)
[2017-11-12 14:36] LABS: Urine Bacteria 20-50 /HPF (<20); Urine Culture Reflex Order NOT NEEDED
[2017-11-12 14:37] LABS: Urine Amorphous Sediment 1+ /HPF (NONE SEEN); Urine Mucus 1+ /HPF (NONE SEEN)
[2017-11-12] MEDS ORDERED: PIPER/TAZO/NS 3.375gm 3.375 GM/100 ML BAG IVPB SCH (17:00)
[2017-11-12] MEDS ORDERED: ENOXAPARIN 100 MG/ML SYR SQ SCH (18:00)
[2017-11-12] MEDS: ARFORMOTEROL TARTRATE 15 MCG/2 ML VIAL.NEB NEB SCH (19:50)
[2017-11-12] MEDS ORDERED: DOXAZOSIN 2 MG TAB PO SCH (21:00)
[2017-11-12] MEDS ORDERED: FERROUS SULFATE 325 MG TAB PO SCH (21:00)
[2017-11-12] MEDS: METOPROLOL TAR 50 MG TAB PO SCH (22:01)
[2017-11-12] MEDS: INSULIN DETEMIR 100 UNIT/1 ML INSULIN SQ SCH (22:01)
[2017-11-12] MEDS: HYDRALAZINE HCL 25 MG TABLET PO SCH (22:02)
[2017-11-12] MEDS: ATORVASTATIN 20 MG TAB PO SCH (22:03)
[2017-11-12] MEDS: METOLAZONE 5 MG TABLET PO SCH (22:05)
[2017-11-13 05:11] LABS: Absolute Lymphocytes (CBC) 0.9 K/uL (0.7-4.9); Absolute Monocytes 0.5 K/uL (0.1-1.3); Absolute Neutrophil 6.1 K/uL (1.8-8.0); Basophils % 0.5 % (0-1.3); Eosinophils % 0.8 % (0-4.4); Lymphocytes % 12.1 % (15.3-44.8); MCH 30.1 pg (27.0-35.0); MCV 88.2 fL (80-100); MPV 9.6 fL (7.6-11.3); Monocytes % 6.9 % (3.3-12.3); RBC Red Blood Cell Count 2.35 M/uL (3.86-4.86)
[2017-11-13 05:13] LABS: Hematocrit 20.7 % (36.0-45.0)
[2017-11-13 05:31] LABS: Magnesium 2.4 mg/dL (1.8-2.4); Phosphorus 4.7 mg/dL (2.5-4.9); Potassium 4.3 mmol/L (3.5-5.1)
[2017-11-13] MEDS: PANTOPRAZOLE 40MG TABLET PO SCH (05:56)
[2017-11-13] MEDS: INSULIN -REGULAR HUMAN 50 UNIT/0.5 ML ML SQ SCH ×4 (07:30→21:18)
[2017-11-13] MEDS: ARFORMOTEROL TARTRATE 15 MCG/2 ML VIAL.NEB NEB SCH ×2 (07:59→21:30)
[2017-11-13] MEDS: IPRATROPIUM BROM 0.5MG/2.5ML NEB PRN (07:59)
[2017-11-13] MEDS: VITAMIN D 5,000 UNIT CAP PO SCH (08:20)
[2017-11-13] MEDS: METOPROLOL TAR 50 MG TAB PO SCH ×2 (08:21→21:17)
[2017-11-13] MEDS: SPIRONOLACTONE 25 MG TABLET PO SCH (08:22)
[2017-11-13] MEDS: HYDRALAZINE HCL 25 MG TABLET PO SCH ×2 (08:22→21:17)
[2017-11-13] MEDS: CYANOCOBALAMIN 1,000 MCG TAB PO SCH (08:23)
[2017-11-13] MEDS: levoFLOXacin 500 MG TAB PO SCH (08:23)
--- NOTE | 2017-11-13 08:24 | RAD REPORT ---
EXAM DESCRIPTION: Suzette Sanchez And Lat (2 Views)11/13/2017 6:41 am CLINICAL HISTORY: Shortness of breath COMPARISON: November 12 FINDINGS: A left lower lobe consolidation is present. Mild to moderate additional bilateral pulmonary opacities are mildly improved. The heart remains enla rged IMPRESSION: Mild improvement in mild to moderate bilateral pulmonary opacities probably represent pu lmonary edema Left lower lobe consolidation suspicious for pneumonia. Atelectasis is another consideration
[2017-11-13] MEDS ORDERED: SOD FERRIC GLUC COMPLX/SUCROSE 125 MG in NA CHLORIDE 0.9% 100 ML IV SCH (09:00)
[2017-11-13] MEDS ORDERED: LISINOPRIL 20 MG TAB PO SCH (09:00)
[2017-11-13] MEDS: FUROSEMIDE 40 MG/4 ML VIAL IV SCH ×2 (09:00→21:18)
[2017-11-13] MEDS ORDERED: AMLODIPINE 10 MG TAB PO SCH (09:00)
[2017-11-13] MEDS: MEDIHONEY 44 ML TOPICAL TUBE TOP SCH (09:30)
[2017-11-13] MEDS ORDERED: FUROSEMIDE 40 MG TABLET PO ONE (10:47)
[2017-11-13] MEDS ORDERED: METOLAZONE 5 MG TABLET PO SCH (12:00)
[2017-11-13] MEDS: CALCITROL 0.25 MCG CAP PO SCH (12:12)
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
--- NOTE | 2017-11-13 13:09 | CON ---
Date of Consultation: 11/13/2017 Requesting Physician: Dr. Mallory. Reason For Consultation: Anemia and shortness of breath. History Of Present Illness: Ms. Patel is a 42-year-old female, who has been seen by Dr. Karen jimenez. She came here with a wound infection, however, when she got ready to come to the hospital she became extremely short of breath. High output cardiac failure was diagnosed. She is feeling somewh at better. Denies any acute history of hematemesis, melena, or hematochezia. She has chronic anemia, however, her anemia appears to be dimorphic. She has both low vitamin B12 al juan c with iron. The patient states that she did not drink much alcohol, however, she has been exposed to smoking. Julissa easton has been also diabetic. In addition to that, she had a TIA in the past. At this time, she does no t feel anything different other than better. Past Medical History: Morbid obesity, diabetes, hypertension, which is hard to control, anemia. Past Surgical History: Not related to above. Family History: Denies any gastrointestinal malignancies in the family. Social History: As elaborated above. Allergies: REVIEWED IN THE CHART. Medications: Reviewed in the chart. Review of Systems: General: Appetite is good. No weight loss, rather weight gain, slow and steady. No fever or chills . No history of travel. GI: As elaborated above. 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 Respiratory: Shortness of breath is better. No chest pain. Some occasional cough, which gets kenna r upon breathing treatments. Cardiac: Positive history of palpitation. No orthopnea or dyspnea at this time. Initial symptoms have resolved. Musculoskeletal: Hard to ambulate. Generalized weakness . Dermatologic: No pruritus, no other skin lesion has been noted. Extremities: Lower extremity ulce r. Upper extremity is normal. Neuroendocrine: Other than above none. Neuropsychiatric: None. Physical Examination: General: Morbidly obese female. At this time, no acute distress noted. Hemodynamic and respiratory profile within normal range. HEENT: Atraumatic, normocephalic. No temporal wasting. No facial was ting. Significant pallor noted. No icterus. Neck: Supple. No lymphadenopathy. Trachea central in position. Chest: Bilaterally poor air exchan ge in the lower lung serrano, however upper lung serrano had good air exchange. Cardiac: S1-S2 is accentuated. Abdomen: Morbidly obese. I am unable to palpate any hepatomegaly, splenomegaly, or ascites. Bowel sounds are good. No rebound tenderness. No other tenderness. However, examination will be unreliab le due to morbid obesity. Extremities: Upper extremities are normal and symmetrical. Lower extremity has pitting edema in add ition to the ulcer. Dermatologic: Some discoloration of the lower extremities, however, no apparent bruises or other problem noted. Neurologic: Alert and oriented x3. Intact memory, mentation, and judgment. Can move all parts of e xtremities without any other problem, although somewhat sluggish. No asterixis, no flapping. Diagnostic Data: Reviewed, analyzed, and discussed with the patient. Impression, Plan, Recommendation: Ms. Patel is a 42-year-old female, with decompensated heart failu re due to excessive, volume due to anemia. She could have dimorphic anemia based on the study. She apparently had EGD and colonoscopy, however, she will need capsule endoscopy. We will go ahead and o rder a small-bowel follow-through. I have discussed with Dr. Mallory about that. Followed by this, s he will need capsule endoscopy. However, I will also check her biopsy result whether she has any atr ophic gastritis giving rise to other conditions including any malabsorption to explain higher vitamin B12 problems. I have had a long discussion with the patient regarding her management plan. We have discussed about capsule endoscopy and small bowel follow through. She has good understanding. MARCELO/HAIDER Voice ID: [id number] Report ID: [id number]
--- NOTE | 2017-11-13 17:31 | RAD REPORT ---
EXAM DESCRIPTION: RAD - Chest Single View - 11/13/2017 5:24 pm CLINICAL HISTORY: S/P PICC insertion COMPARISON: Chest Pa And Lat (2 Views) dated 11/13/2017; Chest Single View dated 11/12/2017; Chest Sing le View dated 11/11/2017; Chest Single View dated 12/19/2015 FINDINGS: Portable chest was obtained following placement of a right upper extremity PICC line. The catheter tip projects over the SVC.
[2017-11-13] MEDS: ENOXAPARIN 30 MG/0.3 ML SQ SCH (18:16)
[2017-11-13] MEDS: DOXAZOSIN 4 MG TAB PO SCH (21:16)
[2017-11-13] MEDS: ATORVASTATIN 20 MG TAB PO SCH (21:17)
[2017-11-13] MEDS: INSULIN DETEMIR 100 UNIT/1 ML INSULIN SQ SCH (21:17)
[2017-11-13] MEDS: METOLAZONE 5 MG TABLET PO SCH (22:00)
[2017-11-14] MEDS: PANTOPRAZOLE 40MG TABLET PO SCH (05:54)
[2017-11-14 06:05] VITALS: BMI 49.0
[2017-11-14 06:38] LABS: Magnesium 2.3 mg/dL (1.8-2.4); Potassium 4.3 mmol/L (3.5-5.1)
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
[2017-11-14 07:25] LABS: Absolute Lymphocytes (CBC) 0.9 K/uL (0.7-4.9); Absolute Monocytes 0.5 K/uL (0.1-1.3); Absolute Neutrophil 4.4 K/uL (1.8-8.0); Basophils % 0.4 % (0-1.3); Eosinophils % 1.2 % (0-4.4); Hematocrit 19.6 % (36.0-45.0); Lymphocytes % 14.8 % (15.3-44.8); MCH 29.4 pg (27.0-35.0); MCV 86.8 fL (80-100); RBC Red Blood Cell Count 2.25 M/uL (3.86-4.86)
[2017-11-14] MEDS: INSULIN -REGULAR HUMAN 50 UNIT/0.5 ML ML SQ SCH ×4 (07:30→21:00)
[2017-11-14] MEDS: ALBUTEROL 2.5 MG/3 ML NEB SOL NEB PRN ×2 (08:23→20:16)
[2017-11-14] MEDS: ARFORMOTEROL TARTRATE 15 MCG/2 ML VIAL.NEB NEB SCH ×2 (08:23→20:16)
--- NOTE | 2017-11-14 08:25 | P.PN ---
Date of Service: 11/13/17 Vital Signs Temp Pulse Resp BP Pulse Ox 98 F 86 20 161/68 H 95 11/14/17 07:11 11/14/17 07:11 11/14/17 07:11 11/14/17 07:11 11/14/17 07:11 Medications Acetaminophen (Tylenol -Extra Strength) 500 mg PO Q4HP PRN PRN Reason: [id number] Stop: 12/12/17 00:35 Last Admin: 11/12/17 22:53 Dose: 500 mg Albuterol Sulfate (Proventil 0.083% Neb Soln) 2.5 mg NEB [id number] PRN PRN Reason: SHORTNESS OF BREATH Stop: 12/12/17 00:35 Last Admin: 11/12/17 19:50 Dose: 2.5 mg Arformoterol Tartrate (Brovana) 15 mcg NEB BIDRESP [facility] Stop: 12/12/17 20:01 Last Admin: 11/13/17 21:30 Dose: 15 mcg Atorvastatin Calcium (Lipitor) 20 mg PO BEDTIME G[facility] Stop: 12/12/17 21:01 Last Admin: 11/13/17 21:17 Dose: 20 mg Calcitriol (Rocaltrol) 0.5 mcg PO DAILY [facility] Stop: 12/13/17 12:01 Last Admin: 11/13/17 12:12 Dose: 0.5 mcg Cholecalciferol (Vitamin D 5,000 Iu Cap) 5,000 unit PO DAILY [facility] Stop: 12/13/17 09:01 Last Admin: 11/13/17 08:20 Dose: 5,000 unit Cyanocobalamin (Vitamin B-12) 1,000 mcg PO DAILY [facility] Stop: 12/13/17 09:01 Last Admin: 11/13/17 08:23 Dose: 1,000 mcg Dextrose (Dextrose 50% Syringe) 12.5 gm IV PRN PRN; Protocol PRN Reason: HYPOGLYCEMIA Stop: 12/12/17 10:12 Doxazosin Mesylate (Cardura) 4 mg PO BEDTIME G[facility]LL Stop: 12/13/17 21:01 Last Admin: 11/13/17 21:16 Dose: 4 mg Emollient Gel (Medihoney Woundcare Gel) 1 appl TOP DAILY [facility] Stop: 12/13/17 09:01 Last Admin: 08/10/18 09:30 Dose: 1 marvel Enoxaparin Sodium (Lovenox 30 Mg Inj) 30 mg SQ DAILY 6PM [facility] Stop: 12/13/17 18:01 Last Admin: 11/13/17 18:16 Dose: 30 mg Furosemide (Lasix) 40 mg IV BID [facility] Stop: 12/12/17 21:01 Last Admin: 11/13/17 21:18 Dose: 40 mg Glucagon (Glucagen) 1 mg IM 1X PRN; Protocol PRN Reason: HYPOGLYCEMIA Stop: 12/12/17 10:12 Hydralazine HCl (Apresoline) 25 mg PO BID [facility] Stop: 12/12/17 21:01 Last Admin: 11/13/17 21:17 Dose: 25 mg Insulin Detemir (Levemir) 10 units SQ BEDTIME [facility] Stop: 12/12/17 21:01 Last Admin: 11/13/17 21:17 Dose: 10 units Insulin Human Regular (Novolin -R) 0 unit SQ ACHS [facility]; Protocol Stop: 12/12/17 07:31 Last Admin: 11/13/17 21:18 Dose: 4 unit Ipratropium [place] (Atrovent Neb) 0.5 mg NEB [id number] PRN PRN Reason: SHORTNESS OF BREATH Stop: 12/12/17 00:35 Last Admin: 11/13/17 07:59 Dose: 0.5 mg Levofloxacin (Levaquin) 250 mg PO DAILY [facility]; Protocol Stop: 12/13/17 09:01 Last Admin: 11/13/17 08:23 Dose: 250 mg Metolazone (Zaroxolyn) 10 mg PO 1X [facility] Stop: 12/14/17 08:31 Metoprolol Tartrate (Lopressor) 50 mg PO BID [facility] Stop: 12/12/17 21:01 Last Admin: 11/13/17 21:17 Dose: 50 mg Ondansetron HCl (Zofran) 4 mg IV Q6HP PRN PRN Reason: NAUSEA / VOMITING Stop: 12/12/17 00:35 Pantoprazole Sodium (Protonix Tab) 40 mg PO DAILYAC [facility] Stop: 12/13/17 06:31 Last Admin: 11/14/17 05:54 Dose: 40 mg Sodium Chloride (Normal Saline Flush) 10 ml IV BID [facility] Stop: 12/12/17 09:01 Last Admin: 11/13/17 21:19 Dose: 10 ml Spironolactone (Aldactone) 25 mg PO DAILY [facility] Stop: 12/12/17 14:01 Last Admin: 11/13/17 08:22 Dose: 25 mg Assessment/ Plan: Nephrology. Feeling better. CPS improved without CP or SOB. No acute events overnight. Vitals, medications, blood work and imaging reviewed in the chart. General: In no apparent distress, Oriented x3, Cooperative HEENT: Atraumatic Neck: Supple, No LAD, JVD distended Respiratory: Clear to auscultation bilaterally, Diminished Cardiovascular: Regular rate/rhythm, No rubs, Edema Gastrointestinal: Soft and benign, Non-distended, No guarding Musculoskeletal: No clubbing, No contractures Integumentary: No rashes, No cyanosis Neurological: Normal speech Laboratory Data (last 24 hrs) 11/11/17 20:50: PT 11.1, INR 0.94 11/11/17 20:50: WBC 9.6, Hgb 7.8 L*, Hct 23.2 L, Plt Count 284 11/11/17 20:50: Sodium 143, Potassium 4.2, BUN 45 H, Creatinine 1.60 H, Glucose 187 H, Magnesium 2.8 H, Total Bilirubin 0.1 L, AST 29, ALT 31, Alkaline Phosphatase 81 Imagings Data: EXAM DESCRIPTION: US - Renal Ultrasound-Complete - 11/12/2017 10:55 am CLINICAL HISTORY: Acute renal failure, chronic renal disease COMPARISON: None. FINDINGS: The right kidney measures 11.7 x 5.7 x 6.7 cm. The left kidney measures 11.2 x 6.6 x 5.9 cm. Renal cortical thickness and echogenicity are normal. No hydronephrosis or suspicious renal mass. No bladder wall thickening or mass. No intraluminal stone or mass. IMPRESSION: No hydronephrosis or suspicious renal mass. No other significant findings. Conclusions/Impression: A/ SHWETHA likely CRS. CKD III with proteinuria. A/C Diastolic CHF. HTN with CKD. DM II with CKD. Iron Deficiency Anemia. Hypocalcemia. P/ Continue current POC and Medications. Agree with diuresis. Will give metolazone as needed. Low sodium diet. Agree with IV iron. Transfuse PRBC as needed. Agree with abx. Increase Doxazosin 4mg qhs. No NSAIDs. AM labs. Daily weight.
[2017-11-14] MEDS: HYDRALAZINE HCL 25 MG TABLET PO SCH ×2 (09:53→21:51)
[2017-11-14] MEDS: METOPROLOL TAR 50 MG TAB PO SCH ×2 (09:53→21:51)
[2017-11-14] MEDS: SPIRONOLACTONE 25 MG TABLET PO SCH (09:53)
[2017-11-14] MEDS: CALCITROL 0.25 MCG CAP PO SCH (09:53)
[2017-11-14] MEDS: VITAMIN D 5,000 UNIT CAP PO SCH (09:53)
[2017-11-14] MEDS: levoFLOXacin 500 MG TAB PO SCH (09:54)
[2017-11-14] MEDS: FUROSEMIDE 40 MG/4 ML VIAL IV SCH ×2 (09:54→21:00)
[2017-11-14] MEDS: CYANOCOBALAMIN 1,000 MCG TAB PO SCH (09:54)
[2017-11-14] MEDS: METOLAZONE 5 MG TABLET PO SCH (09:56)
--- NOTE | 2017-11-14 12:05 | RAD REPORT ---
EXAM DESCRIPTION: RAD - Chest Pa And Lat (2 Views) - 11/14/2017 11:48 am CLINICAL HISTORY: follow up CHF/Pneumonia Chest pain. COMPARISON: No comparisonsChest Single View dated 11/13/2017; Chest Pa And Lat (2 Views) dated 018; Chest Single View dated 11/12/2017; Chest Single View dated 11/11/2017 FINDINGS: Bibasilar pulmonary opacities are again noted, greater on the left, associated with a left pleural effusion. Overall, lung aeration appears mildly improved. The heart is upper limit normal si ze. No displaced fractures. Right PICC line has tip in the atrial caval junction region. IMPRESSION: Mild improvement in lung aeration since the comparative study.
[2017-11-14] MEDS ORDERED: NA CHLORIDE 0.9% 250 ML IV SCH (13:00)
[2017-11-14] MEDS: MEDIHONEY 44 ML TOPICAL TUBE TOP SCH (17:15)
[2017-11-14] MEDS: ENOXAPARIN 30 MG/0.3 ML SQ SCH (17:19)
[2017-11-14] MEDS: FUROSEMIDE 20 MG/ 2ML VIAL IV PRN (20:11)
[2017-11-14] MEDS: IPRATROPIUM BROM 0.5MG/2.5ML NEB PRN (20:16)
--- NOTE | 2017-11-14 20:27 | P.PN ---
Date of Service: 11/14/17 Vital Signs Temp Pulse Resp BP Pulse Ox 97.8 F 89 17 188/95 H 96 11/14/17 16:00 11/14/17 20:11 11/14/17 16:00 11/14/17 20:11 11/14/17 16:00 Medications Acetaminophen (Tylenol -Extra Strength) 500 mg PO Q4HP PRN PRN Reason: [id number] Stop: 12/12/17 00:35 Last Admin: 11/12/17 22:53 Dose: 500 mg Albuterol Sulfate (Proventil 0.083% Neb Soln) 2.5 mg NEB [id number] PRN PRN Reason: SHORTNESS OF BREATH Stop: 12/12/17 00:35 Last Admin: 11/14/17 20:16 Dose: 2.5 mg Arformoterol Tartrate (Brovana) 15 mcg NEB BIDRESP [facility] Stop: 12/12/17 20:01 Last Admin: 11/14/17 20:16 Dose: 15 mcg Atorvastatin Calcium (Lipitor) 20 mg PO BEDTIME [facility] Stop: 12/12/17 21:01 Last Admin: 11/13/17 21:17 Dose: 20 mg Calcitriol (Rocaltrol) 0.5 mcg PO DAILY [facility] Stop: 12/13/17 12:01 Last Admin: 11/14/17 09:53 Dose: 0.5 mcg Cholecalciferol (Vitamin D 5,000 Iu Cap) 5,000 unit PO DAILY [facility] Stop: 12/13/17 09:01 Last Admin: 11/14/17 09:53 Dose: 5,000 unit Cyanocobalamin (Vitamin B-12) 1,000 mcg PO DAILY [facility] Stop: 12/13/17 09:01 Last Admin: 11/14/17 09:54 Dose: 1,000 mcg Dextrose (Dextrose 50% Syringe) 12.5 gm IV PRN PRN; Protocol PRN Reason: HYPOGLYCEMIA Stop: 12/12/17 10:12 Doxazosin Mesylate (Cardura) 4 mg PO BEDTIME [facility] Stop: 12/13/17 21:01 Last Admin: 11/13/17 21:16 Dose: 4 mg Emollient Gel (Medihoney Woundcare Gel) 1 appl TOP DAILY [facility] Stop: 12/13/17 09:01 Last Admin: 11/14/17 17:15 Dose: 1 marvel Enoxaparin Sodium (Lovenox 30 Mg Inj) 30 mg SQ DAILY 6PM [facility] Stop: 12/13/17 18:01 Last Admin: 11/14/17 17:19 Dose: 30 mg Furosemide (Lasix) 40 mg IV BID [facility] Stop: 12/12/17 21:01 Last Admin: 11/14/17 09:54 Dose: 40 mg Furosemide (Lasix) 20 mg IV PRBCS PRN PRN Reason: PRBC Last Admin: 11/14/17 20:11 Dose: 20 mg Glucagon (Glucagen) 1 mg IM 1X PRN; Protocol PRN Reason: HYPOGLYCEMIA Stop: 12/12/17 10:12 Hydralazine HCl (Apresoline) 25 mg PO BID [facility] Stop: 12/12/17 21:01 Last Admin: 11/14/17 09:53 Dose: 25 mg Sodium Chloride (Sodium Chloride) 250 mls @ 0 mls/hr IV .Q0M [facility] Stop: 12/14/17 13:01 Insulin Detemir (Levemir) 10 units SQ BEDTIME [facility] Stop: 12/12/17 21:01 Last Admin: 11/13/17 21:17 Dose: 10 units Insulin Human Regular (Novolin -R) 0 unit SQ ACHS [facility]; Protocol Stop: 12/12/17 07:31 Last Admin: 11/14/17 16:30 Dose: Not Given Ipratropium [place] (Atrovent Neb) 0.5 mg NEB [id number] PRN PRN Reason: SHORTNESS OF BREATH Stop: 12/12/17 00:35 Last Admin: 11/14/17 20:16 Dose: 0.5 mg Levofloxacin (Levaquin) 250 mg PO DAILY [facility]; Protocol Stop: 12/13/17 09:01 Last Admin: 11/14/17 09:54 Dose: 250 mg Metolazone (Zaroxolyn) 10 mg PO 1X [facility] Stop: 12/14/17 08:31 Last Admin: 11/14/17 09:56 Dose: 10 mg Metoprolol Tartrate (Lopressor) 50 mg PO BID [facility] Stop: 12/12/17 21:01 Last Admin: 11/14/17 09:53 Dose: 50 mg Ondansetron HCl (Zofran) 4 mg IV Q6HP PRN PRN Reason: NAUSEA / VOMITING Stop: 12/12/17 00:35 Pantoprazole Sodium (Protonix Tab) 40 mg PO DAILYAC [facility] Stop: 12/13/17 06:31 Last Admin: 11/14/17 05:54 Dose: 40 mg Sodium Chloride (Normal Saline Flush) 10 ml IV BID [facility] Stop: 12/12/17 09:01 Last Admin: 11/14/17 09:57 Dose: 10 ml Spironolactone (Aldactone) 25 mg PO DAILY [facility] Stop: 12/12/17 14:01 Last Admin: 11/14/17 09:53 Dose: 25 mg Assessment/ Plan: Nephrology. Feeling better. Good urine output. Still with persistent edema. CPS improved without CP or SOB. +ESPARZA No acute events overnight. Vitals, medications, blood work and imaging reviewed in the chart. General: In no apparent distress, Oriented x3, Cooperative HEENT: Atraumatic Neck: Supple, No LAD, JVD distended Respiratory: Clear to auscultation bilaterally, Diminished Cardiovascular: Regular rate/rhythm, No rubs, Edema 2+ Gastrointestinal: Soft and benign, Non-distended, No guarding Musculoskeletal: No clubbing, No contractures Integumentary: No rashes, No cyanosis Neurological: Normal speech Laboratory Data (last 24 hrs) 11/11/17 20:50: PT 11.1, INR 0.94 11/11/17 20:50: WBC 9.6, Hgb 7.8 L*, Hct 23.2 L, Plt Count 284 11/11/17 20:50: Sodium 143, Potassium 4.2, BUN 45 H, Creatinine 1.60 H, Glucose 187 H, Magnesium 2.8 H, Total Bilirubin 0.1 L, AST 29, ALT 31, Alkaline Phosphatase 81 Imagings Data: EXAM DESCRIPTION: US - Renal Ultrasound-Complete - 11/12/2017 10:55 am CLINICAL HISTORY: Acute renal failure, chronic renal disease COMPARISON: None. FINDINGS: The right kidney measures 11.7 x 5.7 x 6.7 cm. The left kidney measures 11.2 x 6.6 x 5.9 cm. Renal cortical thickness and echogenicity are normal. No hydronephrosis or suspicious renal mass. No bladder wall thickening or mass. No intraluminal stone or mass. IMPRESSION: No hydronephrosis or suspicious renal mass. No other significant findings. Conclusions/Impression: A/ SHWETHA likely CRS. CKD III with proteinuria. A/C Diastolic CHF. HTN with CKD. DM II with CKD. Iron Deficiency Anemia. Hypocalcemia. P/ Continue current POC and Medications. Agree with diuresis. Metolazone as needed. Low sodium diet. Agree with IV iron. Agree with PRBC transfusion. Agree with abx. Urine studies ordered but still not sent. Check for vasculitis due to hematuria. No NSAIDs. AM labs. Daily weight.
[2017-11-14] MEDS: DOXAZOSIN 4 MG TAB PO SCH (21:00)
[2017-11-14] MEDS: INSULIN DETEMIR 100 UNIT/1 ML INSULIN SQ SCH (21:00)
[2017-11-14] MEDS ORDERED: DOXAZOSIN 2 MG TAB ONE (21:09)
[2017-11-14] MEDS: ATORVASTATIN 20 MG TAB PO SCH (21:51)
[2017-11-15] MEDS: FUROSEMIDE 20 MG/ 2ML VIAL IV PRN (02:03)
[2017-11-15 02:47] LABS: Urine Appearance CLEAR; Urine Bilirubin NEGATIVE (NEG); Urine Blood TRACE (NEG); Urine Color YELLOW; Urine Glucose 1+ (NEG); Urine Protein 3+ (NEG); Urine Specific Gravity 1.015 (1.005-1.030); Urine Urobilinogen 0.2 mg/dL (0.2-1.0)
[2017-11-15 02:56] LABS: Urine Bacteria <20 /HPF (<20); Urine Culture Reflex Order NOT NEEDED; Urine Mucus LIGHT /HPF (NONE SEEN); Urine RBC <5 /HPF (NONE SEEN)
[2017-11-15 03:42] LABS: Absolute Monocytes 0.6 K/uL (0.1-1.3); Absolute Neutrophil 5.8 K/uL (1.8-8.0); Basophils % 0.3 % (0-1.3); Eosinophils % 0.9 % (0-4.4); Hematocrit 24.8 % (36.0-45.0); Lymphocytes % 12.9 % (15.3-44.8); MCH 30.1 pg (27.0-35.0); MCV 87.7 fL (80-100); MPV 9.8 fL (7.6-11.3); Monocytes % 8.2 % (3.3-12.3); RBC Red Blood Cell Count 2.82 M/uL (3.86-4.86)
[2017-11-15 03:56] LABS: Magnesium 2.1 mg/dL (1.8-2.4); Potassium 3.9 mmol/L (3.5-5.1)
[2017-11-15] MEDS ORDERED: POTASSIUM 25 MEQ EFFERV TAB PO ONE (04:28)
[2017-11-15] MEDS: PANTOPRAZOLE 40MG TABLET PO SCH (05:55)
--- NOTE | 2017-11-15 07:24 | RAD REPORT ---
EXAM DESCRIPTION: RAD - Chest Pa And Lat (2 Views) - 11/15/2017 7:16 am CLINICAL HISTORY: Shortness of breath, CHF COMPARISON: November 14 TECHNIQUE: PA and lateral views of the chest were obtained. FINDINGS: The lungs are slightly underinflated. Left base opacification has shown no further improve ment since the prior day study. Right base opacification also similar to the comparison. Central vasc ulature and lung markings remain prominent. Trachea is midline. PICC line remains in place Heart si ze is normal and central vasculature is within normal limits. No pleural effusion or pneumothorax se en. No acute bony finding noted. No aortic abnormality. IMPRESSION: Bilateral perihilar and lung base interstitial and alveolar opacification, worse at the left base, a show no further improvement from prior imaging.
[2017-11-15] MEDS: INSULIN -REGULAR HUMAN 50 UNIT/0.5 ML ML SQ SCH ×4 (07:30→21:00)
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
[2017-11-15] MEDS: ARFORMOTEROL TARTRATE 15 MCG/2 ML VIAL.NEB NEB SCH ×2 (08:00→20:00)
[2017-11-15] MEDS: METOLAZONE 5 MG TABLET PO SCH ×2 (08:30→13:52)
[2017-11-15] MEDS ORDERED: FUROSEMIDE 20 MG/ 2ML VIAL IV ONE (09:00)
[2017-11-15] MEDS ORDERED: METOLAZONE 5 MG TABLET PO SCH (11:00)
[2017-11-15] MEDS: CALCITROL 0.25 MCG CAP PO SCH (11:47)
[2017-11-15] MEDS: VITAMIN D 5,000 UNIT CAP PO SCH (11:47)
[2017-11-15] MEDS: METOPROLOL TAR 50 MG TAB PO SCH ×2 (11:48→20:25)
[2017-11-15] MEDS: CYANOCOBALAMIN 1,000 MCG TAB PO SCH (11:48)
[2017-11-15] MEDS: SPIRONOLACTONE 25 MG TABLET PO SCH (11:48)
[2017-11-15] MEDS: HYDRALAZINE HCL 25 MG TABLET PO SCH ×2 (11:49→21:31)
[2017-11-15] MEDS: DOXYCYCLINE 100 MG CAP PO SCH ×2 (11:49→20:26)
[2017-11-15] MEDS: levoFLOXacin 500 MG TAB PO SCH (11:49)
[2017-11-15] MEDS: FUROSEMIDE 40 MG/4 ML VIAL IV SCH ×3 (11:50→17:41)
[2017-11-15] MEDS: MEDIHONEY 44 ML TOPICAL TUBE TOP SCH (11:58)
--- NOTE | 2017-11-15 12:17 | RAD REPORT ---
EXAM DESCRIPTION: RAD - Small Bowel Series - 11/15/2017 11:24 am CLINICAL HISTORY: Abdominal pain, anemia COMPARISON: None. FINDINGS: Refinish Technician film shows a nonspecific bowel gas pattern. No obstruction or free air. No suspiciou s calcifications. Gastric size is normal. Gastric mucosal fold pattern is mildly prominent. No focal mass lesions seen. Assessment on small bowel examination is limited due to incomplete distention of the gastric hidalgo. No delay in transit of contrast into the small bowel. Small bowel is normal in diameter with no mucos al fold thickening. No intrinsic or extrinsic mass identifiable. Terminal ileum has normal appearance . Transit time to the colon is 3 hours. IMPRESSION: No focal small bowel finding. Transit time is prolonged at 3 hours. Prominence of the gastric mucosal fold pattern is probably artifact of incomplete distention rather t orellana gastritis. No focal gastric mass identifiable.
--- NOTE | 2017-11-15 12:28 | P.PN ---
Date of Service: 11/15/17 Vital Signs Temp Pulse Resp BP Pulse Ox 98 F 89 20 177/93 H 93 11/15/17 08:01 11/15/17 11:58 11/15/17 08:01 11/15/17 11:58 11/15/17 08:01 Medications Acetaminophen (Tylenol -Extra Strength) 500 mg PO Q4HP PRN PRN Reason: [id number] Stop: 12/12/17 00:35 Last Admin: 11/12/17 22:53 Dose: 500 mg Albuterol Sulfate (Proventil 0.083% Neb Soln) 2.5 mg NEB [id number] PRN PRN Reason: SHORTNESS OF BREATH Stop: 12/12/17 00:35 Last Admin: 11/14/17 20:16 Dose: 2.5 mg Arformoterol Tartrate (Brovana) 15 mcg NEB BIDRESP GISSELL Stop: 12/12/17 20:01 Last Admin: 11/15/17 08:00 Dose: Not Given Atorvastatin Calcium (Lipitor) 20 mg PO BEDTIME GISSELL Stop: 12/12/17 21:01 Last Admin: 11/14/17 21:51 Dose: 20 mg Calcitriol (Rocaltrol) 0.5 mcg PO DAILY GISSELL Stop: 12/13/17 12:01 Last Admin: 11/15/17 11:47 Dose: 0.5 mcg Cholecalciferol (Vitamin D 5,000 Iu Cap) 5,000 unit PO DAILY GISSELL Stop: 12/13/17 09:01 Last Admin: 11/15/17 11:47 Dose: 5,000 unit Cyanocobalamin (Vitamin B-12) 1,000 mcg PO DAILY GISSELL Stop: 12/13/17 09:01 Last Admin: 11/15/17 11:48 Dose: 1,000 mcg Dextrose (Dextrose 50% Syringe) 12.5 gm IV PRN PRN; Protocol PRN Reason: HYPOGLYCEMIA Stop: 12/12/17 10:12 Doxazosin Mesylate (Cardura) 4 mg PO BEDTIME GISSELL Stop: 12/13/17 21:01 Last Admin: 11/14/17 21:00 Dose: Not Given Doxycycline Monohydrate (Vibramycin) 100 mg PO BID GISSELL; Protocol Stop: 12/15/17 09:01 Last Admin: 11/15/17 11:49 Dose: 100 mg Emollient Gel (Medihoney Woundcare Gel) 1 appl TOP DAILY [facility] Stop: 12/13/17 09:01 Last Admin: 11/15/17 11:58 Dose: 1 marvel Enoxaparin Sodium (Lovenox 30 Mg Inj) 30 mg SQ DAILY 6PM [facility] Stop: 12/13/17 18:01 Last Admin: 11/14/17 17:19 Dose: 30 mg Furosemide (Lasix) 40 mg IV 0600,1200,1800 [facility] Stop: 12/15/17 13:01 Glucagon (Glucagen) 1 mg IM 1X PRN; Protocol PRN Reason: HYPOGLYCEMIA Stop: 12/12/17 10:12 Hydralazine HCl (Apresoline) 25 mg PO BID [facility] Stop: 12/12/17 21:01 Last Admin: 11/15/17 11:49 Dose: 25 mg Sodium Chloride (Sodium Chloride) 250 mls @ 0 mls/hr IV .Q0M [facility] Stop: 12/14/17 13:01 Insulin Detemir (Levemir) 10 units SQ BEDTIME GISSELL Stop: 12/12/17 21:01 Last Admin: 11/14/17 21:00 Dose: 10 units Insulin Human Regular (Novolin -R) 0 unit SQ ACHS [facility]; Protocol Stop: 12/12/17 07:31 Last Admin: 11/15/17 07:30 Dose: Not Given Ipratropium [place] (Atrovent Neb) 0.5 mg NEB [id number] PRN PRN Reason: SHORTNESS OF BREATH Stop: 12/12/17 00:35 Last Admin: 11/14/17 20:16 Dose: 0.5 mg Levofloxacin (Levaquin) 250 mg PO DAILY [facility]; Protocol Stop: 12/13/17 09:01 Last Admin: 11/15/17 11:49 Dose: 250 mg Metolazone (Zaroxolyn) 10 mg PO 1X [facility] Stop: 12/15/17 11:01 Last Admin: 11/15/17 11:58 Dose: 10 mg Metolazone (Zaroxolyn) 10 mg PO 1X [facility] Stop: 12/15/17 14:01 Metoprolol Tartrate (Lopressor) 100 mg PO BID [facility] Stop: 12/15/17 10:01 Last Admin: 11/15/17 11:48 Dose: 100 mg Ondansetron HCl (Zofran) 4 mg IV Q6HP PRN PRN Reason: NAUSEA / VOMITING Stop: 12/12/17 00:35 Pantoprazole Sodium (Protonix Tab) 40 mg PO DAILYAC [facility] Stop: 12/13/17 06:31 Last Admin: 11/15/17 05:55 Dose: 40 mg Sodium Chloride (Normal Saline Flush) 10 ml IV BID [facility] Stop: 12/12/17 09:01 Last Admin: 11/15/17 11:51 Dose: 10 ml Spironolactone (Aldactone) 25 mg PO DAILY [facility] Stop: 12/12/17 14:01 Last Admin: 11/15/17 11:48 Dose: 25 mg Assessment/ Plan: Nephrology. Feeling better. Good urine output. Still with persistent edema. CPS improved without CP or SOB. +ESPARZA Reports nasal dryness with blood. No acute events overnight. Vitals, medications, blood work and imaging reviewed in the chart. General: In no apparent distress, Oriented x3, Cooperative HEENT: Atraumatic Neck: Supple, No LAD, JVD distended Respiratory: Clear to auscultation bilaterally, Diminished Cardiovascular: Regular rate/rhythm, No rubs, Edema 2+ Gastrointestinal: Soft and benign, Non-distended, No guarding Musculoskeletal: No clubbing, No contractures Integumentary: No rashes, No cyanosis Neurological: Normal speech Laboratory Data (last 24 hrs) 11/11/17 20:50: PT 11.1, INR 0.94 11/11/17 20:50: WBC 9.6, Hgb 7.8 L*, Hct 23.2 L, Plt Count 284 11/11/17 20:50: Sodium 143, Potassium 4.2, BUN 45 H, Creatinine 1.60 H, Glucose 187 H, Magnesium 2.8 H, Total Bilirubin 0.1 L, AST 29, ALT 31, Alkaline Phosphatase 81 Imagings Data: EXAM DESCRIPTION: US - Renal Ultrasound-Complete - 11/12/2017 10:55 am CLINICAL HISTORY: Acute renal failure, chronic renal disease COMPARISON: None. FINDINGS: The right kidney measures 11.7 x 5.7 x 6.7 cm. The left kidney measures 11.2 x 6.6 x 5.9 cm. Renal cortical thickness and echogenicity are normal. No hydronephrosis or suspicious renal mass. No bladder wall thickening or mass. No intraluminal stone or mass. IMPRESSION: No hydronephrosis or suspicious renal mass. No other significant findings. Conclusions/Impression: A/ SHWETHA likely CRS. CKD III with proteinuria. A/C Diastolic CHF. HTN with CKD. DM II with CKD. Iron Deficiency Anemia. Hypocalcemia. Klebsiella cystitis. P/ Continue current POC and Medications. Increase Lasix TID. Metolazone as needed. Low sodium diet. Agree with IV iron. Agree with abx. No NSAIDs. AM labs. Daily weight. EXAM DESCRIPTION: RAD - Chest Pa And Lat (2 Views) - 11/15/2017 7:16 am CLINICAL HISTORY: Shortness of breath, CHF COMPARISON: November 14 TECHNIQUE: PA and lateral views of the chest were obtained. FINDINGS: The lungs are slightly underinflated. Left base opacification has shown no further improvement since the prior day study. Right base opacification also similar to the comparison. Central vasculature and lung markings remain prominent. Trachea is midline. PICC line remains in place Heart size is normal and central vasculature is within normal limits. No pleural effusion or pneumothorax seen. No acute bony finding noted. No aortic abnormality. IMPRESSION: Bilateral perihilar and lung base interstitial and alveolar opacification, worse at the left base, a show no further improvement from prior imaging.
[2017-11-15] MEDS: ENOXAPARIN 30 MG/0.3 ML SQ SCH (17:40)
[2017-11-15] MEDS: DOXAZOSIN 4 MG TAB PO SCH (20:24)
[2017-11-15] MEDS: ATORVASTATIN 20 MG TAB PO SCH (20:26)
[2017-11-15] MEDS: INSULIN DETEMIR 100 UNIT/1 ML INSULIN SQ SCH (21:32)
[2017-11-16] MEDS: FUROSEMIDE 40 MG/4 ML VIAL IV SCH ×3 (05:17→18:00)
[2017-11-16] MEDS: PANTOPRAZOLE 40MG TABLET PO SCH (05:17)
[2017-11-16 05:59] LABS: Potassium 3.6 mmol/L (3.5-5.1)
[2017-11-16 07:13] LABS: Absolute Lymphocytes (CBC) 1.3 K/uL (0.7-4.9); Absolute Monocytes 0.5 K/uL (0.1-1.3); Absolute Neutrophil 2.5 K/uL (1.8-8.0); Basophils % 0.6 % (0-1.3); Eosinophils % 3.9 % (0-4.4); MCH 30.4 pg (27.0-35.0); MCV 87.1 fL (80-100); MPV 9.3 fL (7.6-11.3); Monocytes % 11.3 % (3.3-12.3); RBC Red Blood Cell Count 2.98 M/uL (3.86-4.86)
[2017-11-16] MEDS: INSULIN -REGULAR HUMAN 50 UNIT/0.5 ML ML SQ SCH ×4 (07:30→21:37)
[2017-11-16] MEDS: ARFORMOTEROL TARTRATE 15 MCG/2 ML VIAL.NEB NEB SCH ×2 (07:59→20:20)
[2017-11-16] MEDS: MEDIHONEY 44 ML TOPICAL TUBE TOP SCH (09:00)
[2017-11-16] MEDS ORDERED: POTASSIUM 25 MEQ EFFERV TAB PO ONE (09:00)
[2017-11-16] MEDS: CALCITROL 0.25 MCG CAP PO SCH (09:18)
[2017-11-16] MEDS: METOPROLOL TAR 50 MG TAB PO SCH ×2 (09:18→21:35)
[2017-11-16] MEDS: CYANOCOBALAMIN 1,000 MCG TAB PO SCH (09:18)
[2017-11-16] MEDS: DOXYCYCLINE 100 MG CAP PO SCH ×2 (09:18→21:34)
[2017-11-16] MEDS: SPIRONOLACTONE 25 MG TABLET PO SCH ×2 (09:19→21:35)
[2017-11-16] MEDS: levoFLOXacin 500 MG TAB PO SCH (09:19)
[2017-11-16] MEDS: HYDRALAZINE HCL 25 MG TABLET PO SCH ×2 (09:19→21:34)
[2017-11-16] MEDS: VITAMIN D 5,000 UNIT CAP PO SCH (09:19)
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
[2017-11-16] MEDS: METOLAZONE 5 MG TABLET PO SCH (14:00)
[2017-11-16] MEDS: ENOXAPARIN 30 MG/0.3 ML SQ SCH (18:00)
[2017-11-16] MEDS: ACETAMINOPHEN 500 MG TAB PO PRN (18:31)
[2017-11-16] MEDS ORDERED: POTASSIUM CL SA 10 MEQ TAB PO ONE (20:17)
--- NOTE | 2017-11-16 20:20 | P.PN ---
Date of Service: 11/16/17 Vital Signs Temp Pulse Resp BP Pulse Ox 98.5 F 76 16 194/89 H 97 11/16/17 20:00 11/16/17 20:00 11/16/17 20:00 11/16/17 20:00 11/16/17 20:00 Medications Acetaminophen (Tylenol -Extra Strength) 500 mg PO Q4HP PRN PRN Reason: [id number] Stop: 12/12/17 00:35 Last Admin: 11/16/17 18:31 Dose: 500 mg Albuterol Sulfate (Proventil 0.083% Neb Soln) 2.5 mg NEB [id number] PRN PRN Reason: SHORTNESS OF BREATH Stop: 12/12/17 00:35 Last Admin: 11/14/17 20:16 Dose: 2.5 mg Arformoterol Tartrate (Brovana) 15 mcg NEB BIDRESP GISSELL Stop: 12/12/17 20:01 Last Admin: 11/16/17 07:59 Dose: 15 mcg Atorvastatin Calcium (Lipitor) 20 mg PO BEDTIME GISSELL Stop: 12/12/17 21:01 Last Admin: 11/15/17 20:26 Dose: 20 mg Calcitriol (Rocaltrol) 0.5 mcg PO DAILY GISSELL Stop: 12/13/17 12:01 Last Admin: 11/16/17 09:18 Dose: 0.5 mcg Cholecalciferol (Vitamin D 5,000 Iu Cap) 5,000 unit PO DAILY GISSELL Stop: 12/13/17 09:01 Last Admin: 11/16/17 09:19 Dose: 5,000 unit Cyanocobalamin (Vitamin B-12) 1,000 mcg PO DAILY GISSELL Stop: 12/13/17 09:01 Last Admin: 11/16/17 09:18 Dose: 1,000 mcg Dextrose (Dextrose 50% Syringe) 12.5 gm IV PRN PRN; Protocol PRN Reason: HYPOGLYCEMIA Stop: 12/12/17 10:12 Doxazosin Mesylate (Cardura) 4 mg PO BID GISSELL Stop: 12/16/17 21:01 Doxycycline Monohydrate (Vibramycin) 100 mg PO BID GISSELL; Protocol Stop: 12/15/17 09:01 Last Admin: 11/16/17 09:18 Dose: 100 mg Emollient Gel ([place] [facility] Gel) 1 appl TOP DAILY GISSELL Stop: 12/13/17 09:01 Last Admin: 11/16/17 09:00 Dose: Not Given Enoxaparin Sodium (Lovenox 30 Mg Inj) 30 mg SQ DAILY 6PM [facility] Stop: 12/13/17 18:01 Last Admin: 11/16/17 18:00 Dose: 30 mg Furosemide (Lasix) 40 mg IV 0600,1200,1800 GISSELL Stop: 12/15/17 13:01 Last Admin: 11/16/17 18:00 Dose: 40 mg Glucagon (Glucagen) 1 mg IM 1X PRN; Protocol PRN Reason: HYPOGLYCEMIA Stop: 12/12/17 10:12 Hydralazine HCl (Apresoline) 50 mg PO BID [facility] Stop: 12/16/17 21:01 Insulin Detemir (Levemir) 10 units SQ BEDTIME GISSELL Stop: 12/12/17 21:01 Last Admin: 11/15/17 21:32 Dose: 10 units Insulin Human Regular (Novolin -R) 0 unit SQ ACHS [facility]; Protocol Stop: 12/12/17 07:31 Last Admin: 11/16/17 16:30 Dose: Not Given Ipratropium [place] (Atrovent Neb) 0.5 mg NEB [id number] PRN PRN Reason: SHORTNESS OF BREATH Stop: 12/12/17 00:35 Last Admin: 11/14/17 20:16 Dose: 0.5 mg Levofloxacin (Levaquin) 250 mg PO DAILY [facility]; Protocol Stop: 12/13/17 09:01 Last Admin: 11/16/17 09:19 Dose: 250 mg Metoprolol Tartrate (Lopressor) 100 mg PO BID [facility] Stop: 12/15/17 10:01 Last Admin: 11/16/17 09:18 Dose: 100 mg Ondansetron HCl (Zofran) 4 mg IV Q6HP PRN PRN Reason: NAUSEA / VOMITING Stop: 12/12/17 00:35 Pantoprazole Sodium (Protonix Tab) 40 mg PO DAILYAC [facility] Stop: 12/13/17 06:31 Last Admin: 11/16/17 05:17 Dose: 40 mg Potassium Chloride (Klor-Con 10 Meq Tab) 20 meq PO 1X ONE Stop: 11/16/17 20:18 Sodium Chloride (Normal Saline Flush) 10 ml IV BID [facility] Stop: 12/12/17 09:01 Last Admin: 11/16/17 09:00 Dose: 10 ml Spironolactone (Aldactone) 25 mg PO BID [facility] Stop: 12/16/17 21:01 Assessment/ Plan: Nephrology. Feeling better. Good urine output. Still with persistent edema. CPS improved without CP or SOB. +ESPARZA Reports nasal dryness with blood. No acute events overnight. Vitals, medications, blood work and imaging reviewed in the chart. General: In no apparent distress, Oriented x3, Cooperative HEENT: Atraumatic Neck: Supple, No LAD, JVD distended Respiratory: Clear to auscultation bilaterally, Diminished Cardiovascular: Regular rate/rhythm, No rubs, Edema 2+ Gastrointestinal: Soft and benign, Non-distended, No guarding Musculoskeletal: No clubbing, No contractures Integumentary: No rashes, No cyanosis Neurological: Normal speech Laboratory Data (last 24 hrs) 11/11/17 20:50: PT 11.1, INR 0.94 11/11/17 20:50: WBC 9.6, Hgb 7.8 L*, Hct 23.2 L, Plt Count 284 11/11/17 20:50: Sodium 143, Potassium 4.2, BUN 45 H, Creatinine 1.60 H, Glucose 187 H, Magnesium 2.8 H, Total Bilirubin 0.1 L, AST 29, ALT 31, Alkaline Phosphatase 81 Imagings Data: EXAM DESCRIPTION: US - Renal Ultrasound-Complete - 11/12/2017 10:55 am CLINICAL HISTORY: Acute renal failure, chronic renal disease COMPARISON: None. FINDINGS: The right kidney measures 11.7 x 5.7 x 6.7 cm. The left kidney measures 11.2 x 6.6 x 5.9 cm. Renal cortical thickness and echogenicity are normal. No hydronephrosis or suspicious renal mass. No bladder wall thickening or mass. No intraluminal stone or mass. IMPRESSION: No hydronephrosis or suspicious renal mass. No other significant findings. Conclusions/Impression: A/ SHWETHA likely CRS. CKD III with proteinuria. A/C Diastolic CHF. HTN with CKD. DM II with CKD. Iron Deficiency Anemia. Hypocalcemia. Klebsiella cystitis. P/ Continue current POC and Medications. Lasix TID. Metolazone as needed. Increase Spironolactone BID. Give potassium. Increase Doxazosin BID. Low sodium diet. Agree with IV iron. Agree with abx. No NSAIDs. AM labs. Daily weight. EXAM DESCRIPTION: RAD - Chest Pa And Lat (2 Views) - 11/15/2017 7:16 am CLINICAL HISTORY: Shortness of breath, CHF COMPARISON: November 14 TECHNIQUE: PA and lateral views of the chest were obtained. FINDINGS: The lungs are slightly underinflated. Left base opacification has shown no further improvement since the prior day study. Right base opacification also similar to the comparison. Central vasculature and lung markings remain prominent. Trachea is midline. PICC line remains in place Heart size is normal and central vasculature is within normal limits. No pleural effusion or pneumothorax seen. No acute bony finding noted. No aortic abnormality. IMPRESSION: Bilateral perihilar and lung base interstitial and alveolar opacification, worse at the left base, a show no further improvement from prior imaging.
[2017-11-16] MEDS: ATORVASTATIN 20 MG TAB PO SCH (21:36)
[2017-11-16] MEDS: INSULIN DETEMIR 100 UNIT/1 ML INSULIN SQ SCH (21:36)
[2017-11-16] MEDS: DOXAZOSIN 4 MG TAB PO SCH (21:36)
[2017-11-17 05:10] LABS: Absolute Lymphocytes (CBC) 1.3 K/uL (0.7-4.9); Absolute Monocytes 0.5 K/uL (0.1-1.3); Absolute Neutrophil 3.7 K/uL (1.8-8.0); Basophils % 0.4 % (0-1.3); Eosinophils % 3.2 % (0-4.4); Hematocrit 26.7 % (36.0-45.0); Lymphocytes % 22.8 % (15.3-44.8); MCH 30.4 pg (27.0-35.0); MCV 87.5 fL (80-100); MPV 9.7 fL (7.6-11.3); Monocytes % 9.3 % (3.3-12.3); RBC Red Blood Cell Count 3.05 M/uL (3.86-4.86)
[2017-11-17 05:16] LABS: Magnesium 1.9 mg/dL (1.8-2.4); Potassium 3.8 mmol/L (3.5-5.1)
[2017-11-17] MEDS ORDERED: POTASSIUM CL SA 10 MEQ TAB PO ONE (05:48)
[2017-11-17] MEDS: FUROSEMIDE 40 MG/4 ML VIAL IV SCH ×3 (06:04→16:55)
[2017-11-17] MEDS: PANTOPRAZOLE 40MG TABLET PO SCH (06:05)
[2017-11-17] MEDS: ARFORMOTEROL TARTRATE 15 MCG/2 ML VIAL.NEB NEB SCH (07:39)
[2017-11-17] MEDS ORDERED: DOXAZOSIN 2 MG TAB ONE (08:15)
[2017-11-17] MEDS: DOXYCYCLINE 100 MG CAP PO SCH (08:27)
[2017-11-17] MEDS: CYANOCOBALAMIN 1,000 MCG TAB PO SCH (08:27)
[2017-11-17] MEDS: levoFLOXacin 500 MG TAB PO SCH (08:28)
[2017-11-17] MEDS: CALCITROL 0.25 MCG CAP PO SCH (08:29)
[2017-11-17] MEDS: HYDRALAZINE HCL 25 MG TABLET PO SCH (08:29)
[2017-11-17] MEDS: SPIRONOLACTONE 25 MG TABLET PO SCH (08:29)
[2017-11-17] MEDS: METOPROLOL TAR 50 MG TAB PO SCH (08:29)
[2017-11-17] MEDS: INSULIN -REGULAR HUMAN 50 UNIT/0.5 ML ML SQ SCH ×3 (08:30→16:30)
[2017-11-17] MEDS: DOXAZOSIN 4 MG TAB PO SCH (08:30)
[2017-11-17] MEDS: MEDIHONEY 44 ML TOPICAL TUBE TOP SCH (08:30)
[2017-11-17] MEDS: VITAMIN D 5,000 UNIT CAP PO SCH (08:32)
[2017-11-17 08:50] VITALS: O2SAT 93
[2017-11-17] MEDS: ENOXAPARIN 30 MG/0.3 ML SQ SCH (16:56)
[2017-11-17 17:19] VITALS: BP 182/88; TEMP 98.1
--- NOTE | 2017-11-17 21:19 | P.PN ---
Date of Service: 11/17/17 Vital Signs Temp Pulse Resp BP Pulse Ox 98.1 F 78 18 182/88 H 92 11/17/17 16:00 11/17/17 16:00 11/17/17 16:00 11/17/17 16:00 11/17/17 16:00 Assessment/ Plan: Nephrology. Feeling better. Good urine output. Still with persistent edema. CPS improved without CP or SOB. No acute events overnight. Wants to go home. Vitals, medications, blood work and imaging reviewed in the chart. General: In no apparent distress, Oriented x3, Cooperative HEENT: Atraumatic Neck: Supple, No LAD, JVD distended Respiratory: Clear to auscultation bilaterally, Diminished Cardiovascular: Regular rate/rhythm, No rubs, Edema 2+ Gastrointestinal: Soft and benign, Non-distended, No guarding Musculoskeletal: No clubbing, No contractures Integumentary: No rashes, No cyanosis Neurological: Normal speech Laboratory Data (last 24 hrs) 11/11/17 20:50: PT 11.1, INR 0.94 11/11/17 20:50: WBC 9.6, Hgb 7.8 L*, Hct 23.2 L, Plt Count 284 11/11/17 20:50: Sodium 143, Potassium 4.2, BUN 45 H, Creatinine 1.60 H, Glucose 187 H, Magnesium 2.8 H, Total Bilirubin 0.1 L, AST 29, ALT 31, Alkaline Phosphatase 81 Imagings Data: EXAM DESCRIPTION: US - Renal Ultrasound-Complete - 11/12/2017 10:55 am CLINICAL HISTORY: Acute renal failure, chronic renal disease COMPARISON: None. FINDINGS: The right kidney measures 11.7 x 5.7 x 6.7 cm. The left kidney measures 11.2 x 6.6 x 5.9 cm. Renal cortical thickness and echogenicity are normal. No hydronephrosis or suspicious renal mass. No bladder wall thickening or mass. No intraluminal stone or mass. IMPRESSION: No hydronephrosis or suspicious renal mass. No other significant findings. Conclusions/Impression: A/ SHWETHA likely CRS. CKD III with proteinuria. A/C Diastolic CHF. HTN with CKD. DM II with CKD. Iron Deficiency Anemia. Hypocalcemia. Klebsiella cystitis. P/ Continue current POC and Medications. Diuretics as ordered. Low sodium diet. Agree with abx. No NSAIDs. AM labs. Daily weight. EXAM DESCRIPTION: RAD - Chest Pa And Lat (2 Views) - 11/15/2017 7:16 am CLINICAL HISTORY: Shortness of breath, CHF COMPARISON: November 14 TECHNIQUE: PA and lateral views of the chest were obtained. FINDINGS: The lungs are slightly underinflated. Left base opacification has shown no further improvement since the prior day study. Right base opacification also similar to the comparison. Central vasculature and lung markings remain prominent. Trachea is midline. PICC line remains in place Heart size is normal and central vasculature is within normal limits. No pleural effusion or pneumothorax seen. No acute bony finding noted. No aortic abnormality. IMPRESSION: Bilateral perihilar and lung base interstitial and alveolar opacification, worse at the left base, a show no further improvement from prior imaging.
--- NOTE | 2017-11-18 14:46 | P.DS ---
Admission Date: 11/11/17 Discharge Date: 11/18/17 Primary Care Provider: Dr. Barrett([facility]); GI-Dr. Black Disposition: ROUTINE DISCHARGE Discharge Condition: GOOD Reason for Admission: Dyspnea/CHF Consultations: Nephrology - Problems (1) Cellulitis Status: Acute Qualifiers: Site of cellulitis: extremity Site of cellulitis of extremity: lower extremity (2) Diastolic heart failure Status: Acute Qualifiers: Heart failure chronicity: acute on chronic Qualified Code(s): I50.33 - Acute on chronic diastolic (congestive) heart failure (3) Acute renal failure Status: Acute (4) Chronic anemia Onset Date: 11/12/17 Status: Acute (5) Diabetes mellitus Onset Date: 11/12/17 Status: Chronic Qualifiers: Diabetes mellitus type: type 2 Diabetes mellitus terminal make up operator insulin use: with mcc use Diabetes mellitus complication status: with skin complications Diabetes mellitus complication detail: with other skin complication Qualified Code(s): E11.628 - Type 2 diabetes mellitus with other skin complications; Z79.4 - intermediate designer (current) use of insulin (6) GERD (gastroesophageal reflux disease) Status: Chronic Qualifiers: Esophagitis presence: esophagitis presence not specified Qualified Code(s) : K21.9 - Gastro-esophageal reflux disease without esophagitis (7) History of pulmonary embolism Status: Chronic (8) Hypertension Status: Chronic Qualifiers: Hypertension type: essential hypertension Qualified Code(s): I10 - Essential (primary) hypertension (9) Morbid obesity Status: Chronic Brief History of Present Illness: Ms Patel a 42-year-old woman with history of PE, is independent diabetic mellitus, asthma, chronic anemia, for about 1 month ago she starts noticing lower extremity swelling. The over the time, she was getting worse. Then she started having shortness of breath which was progressively getting worse. Today she came to ED because she was unable to sleep flat, due to SOB, as her legs got more swollen. ED workup was remarkable for elevated D-dimer, hemoglobin of 7.6 mg/dl. The patient denied any black or bloody stools. She already had an EGD and a colonoscopy which were negative. She denied any chest pain, fever or chills. Hospital Course: Overall during the hospital stay patient remained stable Patient was initially admitted to the hospital for dyspnea was found to have high cardiac output that is congestive heart failure. Patient's when admitted to the hospital was unable to lay flat and was having shortness of breath while forming 2 sentences. Cardiology was consulted who recommended patient get a repeat echocardiogram done here along with treatment for her B12 anemia along with the Lasix to help with volume overload. Patient had marked improvement here in the hospital after the initial treatment with Lasix. Repeat echocardiogram was consistent dysfunction. patient did overall well from cardiac standpoint no treatment B12 injection. GI was consulted for patient's hematemesis. Patient had an EGD and colonoscopy done outpatient without any acute findings. GI at that time recommended patient get a small bowel series. Which was unremarkable and thus a Pill cam study was scheduled for patient as outpatient. While here in the hospital patient was also found to have left lower extremity edema and swelling and was concerning was cellulitis. Patient and wound culture done here in the hospital which was positive for MRSA. Patient was initially started on IV vanc however MRSA was sensitive to tetracycline this patient was switched over to doxycycline. Patient then was discharged home under stable condition. Patient was offered home health however patient refused to get home health stating that her daughter will help her with wound care and medications at home. Patient was asked to follow up with primary care provider, dramatic coach, cinder pit worker, GI doctor and outpatient about 1-2 weeks post discharge Vital Signs/Physical Exam: Temp Pulse Resp BP Pulse Ox 98.1 F 78 18 182/88 H 92 11/17/17 16:00 11/17/17 16:00 11/17/17 16:00 11/17/17 16:00 11/17/17 16:00 General: Alert, In no apparent distress HEENT: Atraumatic, PERRLA, EOMI Neck: Supple, JVD not distended Respiratory: Clear to auscultation bilaterally, Normal air movement Cardiovascular: Regular rate/rhythm, Normal S1 S2 Gastrointestinal: Normal bowel sounds, No tenderness Musculoskeletal: No tenderness Integumentary: No rashes Neurological: Normal speech, Normal tone, Normal affect Lymphatics: No axilla or inguinal lymphadenopathy Laboratory Data at Discharge: WBC 5.8 K/uL (4.3-10.9) D 11/17/17 04:20 Hgb 9.3 g/dL (12.0-15.0) L 11/17/17 04:20 Hct 26.7 % (36.0-45.0) L 11/17/17 04:20 Plt Count 192 K/uL (152-406) 11/17/17 04:20 PT 11.1 SECONDS (9.5-12.5) 11/11/17 20:50 INR 0.94 11/11/17 20:50 Sodium 142 mmol/L (136-145) 11/17/17 04:20 Potassium 3.8 mmol/L (3.5-5.1) 11/17/17 04:20 BUN 44 mg/dL (7-18) H 11/17/17 04:20 Creatinine 1.90 mg/dL (0.55-1.3) H 11/17/17 04:20 Glucose 206 mg/dL (74-106) H 11/17/17 04:20 Uric Acid 8.0 mg/dL (2.6-6.0) H 11/16/17 05:10 Phosphorus 4.7 mg/dL (2.5-4.9) 11/13/17 04:35 Magnesium 1.9 mg/dL (1.8-2.4) 11/17/17 04:20 Total Bilirubin 0.1 mg/dL (0.2-1.0) L 11/11/17 20:50 AST 29 U/L (15-37) 11/11/17 20:50 ALT 31 U/L (12-78) 11/11/17 20:50 Alkaline Phosphatase 81 U/L (45-117) 11/11/17 20:50 Troponin I 0.29 ng/mL (0.0-0.045) H 11/12/17 16:43 Home Medications: Insulin Glargine,Hum.rec.anlog [Toujeo Solostar] 20 units SQ BID 12/19/15 Albuterol Inhaler [Ventolin Inhaler*] 2 puff IH Q6HP PRN 11/12/17 Atorvastatin Calcium 20 mg PO BEDTIME 11/12/17 Doxazosin [Cardura*] 3 mg PO BEDTIME 11/12/17 Furosemide 20 mg PO DAILY 11/12/17 Insulin Lispro [Humalog Kwikpen U-100] See Protocol SQ TID 11/12/17 Ipratropium [Atrovent 0.03% (21MCG)/[place] Nasal*] 2 spray IH BID PRN 11/12/17 Multivitamin [Multivitamins] 1 cap PO DAILY 11/12/17 Hydralazine [Apresoline*] 50 mg PO BID #120 tab 11/17/17 Metoprolol Tartrate [Lopressor*] 100 mg PO BID #120 tab 11/17/17 Spironolactone [Aldactone*] 25 mg PO BID #60 tab 11/17/17 levoFLOXacin [Levaquin*] 250 mg PO DAILY #14 tab 11/17/17 New Medications: Hydralazine [Apresoline*] 50 mg PO BID #120 tab levoFLOXacin [Levaquin*] 250 mg PO DAILY #14 tab Metoprolol Tartrate [Lopressor*] 100 mg PO BID #120 tab Spironolactone [Aldactone*] 25 mg PO BID #60 tab Diet: Regular Activity: Ad doug
[2017-11-18 19:48] LABS: P-ANCA Anti-Myeloperoxidase Ab <1.0 AI (<1.0)
== END 2017-11-17 17:47 | disposition home or self-care (01) | DRG 291 ==
LOC: ER 20:23 → ERHOLD 22:26 → 4TH 23:20
PROVIDERS: ADMIT Internal Medicine; ATTEND Family Medicine
PROC: 30233N1 Transfusion of Nonautologous Red Blood Cells into Peripheral Vein, Percutaneous Approach (ICD-10-PCS; principal; 2017-11-14)
DX: I13.0 Hypertensive heart and chronic kidney disease with heart failure and stage 1 through stage 4 chronic kidney disease, or unspecified chronic kidney disease (principal); I50.33 Acute on chronic diastolic (congestive) heart failure; J69.0 Pneumonitis due to inhalation of food and vomit; Z68.41 Body mass index [BMI] 40.0-44.9, adult; L03.115 Cellulitis of right lower limb; L97.919 Non-pressure chronic ulcer of unspecified part of right lower leg with unspecified severity; N17.9 Acute kidney failure, unspecified; N39.0 Urinary tract infection, site not specified; I50.83 High output heart failure; J45.909 Unspecified asthma, uncomplicated; D50.9 Iron deficiency anemia, unspecified; E11.9 Type 2 diabetes mellitus without complications; K21.9 Gastro-esophageal reflux disease without esophagitis; E66.01 Morbid (severe) obesity due to excess calories; D51.9 Vitamin B12 deficiency anemia, unspecified; E11.22 Type 2 diabetes mellitus with diabetic chronic kidney disease; N18.3 Chronic kidney disease, stage 3 (moderate); E83.51 Hypocalcemia; E78.5 Hyperlipidemia, unspecified; B96.1 Klebsiella pneumoniae [K. pneumoniae] as the cause of diseases classified elsewhere; R79.89 Other specified abnormal findings of blood chemistry; B95.62 Methicillin resistant Staphylococcus aureus infection as the cause of diseases classified elsewhere; Z79.4 Long term (current) use of insulin; Z87.891 Personal history of nicotine dependence; Z86.711 Personal history of pulmonary embolism; Z91.013 Allergy to seafood; Z86.73 Personal history of transient ischemic attack (TIA), and cerebral infarction without residual deficits; Z99.81 Dependence on supplemental oxygen
CPT/HCPCS: 36415; 71045; 71046; 74250; 76770; 78582; 80048; 80076; 80202; 81001; 81003; 81015; 81025; 82570; 82607; 82728; 82962; 83520; 83540; 83605; 83735; 83880; 84100; 84145; 84300; 84466; 84484; 84550; 85025; 85379; 85610; 85652; 86021; 86038; 86160; 86335; 86850; 86900; 86901; 87040; 87070; 87077; 87086; 87088; 87186; 87205; 93005; 93306; 93970; 94640; 94760; 96372; 96374; 97163; 99285; A9540; A9558; J0360; J1650; J1940; J2543; J2916; J3420; J7605; P9016

== ENCOUNTER 2017-12-03 20:30 | Emergency (ER) | payer OTHER ==
[2017-12-03 22:52] LABS: Absolute Lymphocytes (CBC) 2.3 K/uL (0.7-4.9); Absolute Monocytes 0.6 K/uL (0.1-1.3); Absolute Neutrophil 5.1 K/uL (1.8-8.0); Basophils % 0.4 % (0-1.3); Eosinophils % 3.4 % (0-4.4); Hematocrit 28.7 % (36.0-45.0); Lymphocytes % 27.1 % (15.3-44.8); MCH 29.6 pg (27.0-35.0); MCV 87.1 fL (80-100); MPV 10.3 fL (7.6-11.3); Monocytes % 7.7 % (3.3-12.3)
[2017-12-03 22:56] LABS: Protime INR 0.95
[2017-12-03 22:58] LABS: Urine Blood 2+ (NEG); Urine Glucose 2+ (NEG); Urine Protein 3+ (NEG); Urine Specific Gravity 1.025 (1.005-1.030)
[2017-12-03 23:10] LABS: ALT/SGPT 22 U/L (12-78); AST/SGOT 24 U/L (15-37); Alkaline Phosphatase 72 U/L (45-117); BUN Blood Urea Nitrogen 44 mg/dL (7-18); Bicarbonate 23 mmol/L (21-32); Bilirubin Direct < 0.1 mg/dL (0-0.2); Bilirubin Total 0.2 mg/dL (0.2-1.0); Creatine Phosphokinase 506 U/L (26-192); Glucose Level 218 mg/dL (74-106); Magnesium 2.1 mg/dL (1.8-2.4); NT PRO-BNP 5187 pg/mL (<125); Potassium 3.8 mmol/L (3.5-5.1); Protein, Total 6.1 g/dL (6.4-8.2); Sodium Level 138 mmol/L (136-145)
[2017-12-04] MEDS ORDERED: FUROSEMIDE 40 MG/4 ML VIAL ONE (02:31)
--- NOTE | 2017-12-04 02:36 | EDPHYS ---
Physician Documentation [facility] Name: Sherita Patel Age: 42 yrs Sex: Female : 1975 Arrival Date: 12/03/2017 Time: 20:34 Bed 20 Private MD: ED Physician Glen Blackwood HPI: 12/03 22:00 This 42 yrs old Female presents to ER via Wheelchair with complaints of cp Anemia, Rectal Bleeding, states she fell in the parking lot. 22:00 The patient presents to the emergency department with rectal bleeding, bright red, with cp multiple such episodes. 22:00 Onset: The symptoms/episode began/occurred yesterday. Abdominal pain: none is cp appreciated. 22:00 Associated signs and symptoms: Pertinent negatives: chest pain, diarrhea, fever, cp shortness of breath, syncope. 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 - Social history:: Smoking status: Patient/guardian denies using tobacco, the patient reports quitting approximately 3 years ago. - Ebola Screening: : Patient denies travel to an Ebola-affected area in the 21 days before illness onset. ROS: 22:05 Constitutional: Negative for body aches, chills, fever, poor PO intake. cp 22:05 Eyes: Negative for injury, pain, redness, and discharge. cp 22:05 Cardiovascular: Positive for edema, Negative for chest pain, palpitations. cp 22:05 Respiratory: Negative for cough, shortness of breath, wheezing. cp 22:05 Abdomen/GI: Positive for rectal bleeding, Negative for abdominal pain, vomiting, diarrhea, constipation, anorexia, black/tarry stool. 22:05 Back: Negative for pain at rest, pain with movement, radiated pain. 22:05 : Negative for urinary symptoms. 22:05 Skin: Negative for cellulitis, rash. 22:05 Neuro: Negative for altered mental status, dizziness, headache, syncope, weakness. 22:05 All other systems are negative. Exam: 22:12 Constitutional: The patient appears in no acute distress, alert, awake, cp non-diaphoretic, non-toxic, well developed, well nourished, obese. 22:12 Head/Face: Normocephalic, atraumatic. cp 22:12 Eyes: Pupils equal round and reactive to light, extra-ocular motions intact. Lids and cp lashes normal. Conjunctiva and sclera are non-icteric and not injected. Cornea within normal limits. Periorbital areas with no swelling, redness, or edema. ENT: Nares patent. No nasal discharge, no septal abnormalities noted. Tympanic membranes are normal and external auditory canals are clear. Oropharynx with no redness, swelling, or masses, exudates, or evidence of obstruction, uvula midline. Mucous membranes moist. Chest/axilla: Normal chest wall appearance and motion. Nontender with no deformity. No lesions are appreciated. 22:12 Cardiovascular: Rate: normal, Rhythm: regular, Edema: ankle edema, that is moderate, JVD: is not appreciated. 22:12 Respiratory: the patient does not display signs of respiratory distress, Respirations: normal, no use of accessory muscles, no retractions, no splinting, no tachypnea, labored breathing, is not present, Breath sounds: are clear throughout, no decreased breath sounds, no stridor, no wheezing. 22:12 Abdomen/GI: Inspection: obese Bowel sounds: active, all quadrants, Palpation: abdomen is soft and non-tender, in all quadrants, Rectal exam: Stool: guaiac positive, maroon, gross blood, hemorrhoid(s), are not appreciated. 22:12 Back: pain, is absent, ROM is normal. 22:12 Skin: cellulitis, is not appreciated, no rash present. 22:12 Neuro: Orientation: to person, place \T\ time. Mentation: lucid, able to follow commands, Cerebellar function: is grossly normal, Motor: moves all fours, strength is normal, Sensation: no obvious gross deficits. 22:25 ECG was reviewed by the Attending Physician. cp Vital Signs: 20:48 BP 167 / 102; Pulse 80; Resp 18; Temp 97.6; Pulse Ox 98% on R/A; Weight 123.38 kg (R); aj1 Height 5 ft. 6 in. (167.64 cm) (R); Pain 0/10; 21:20 BP 190 / 77 Supine; Pulse 79; Resp 14; Pulse Ox 99% ; bp 21:30 BP 179 / 92 Sitting; Pulse 82; Resp 16; Pulse Ox 99% ; bp 21:35 BP 179 / 99 Standing; Pulse 82; Resp 14; Pulse Ox 97% ; bp 22:52 BP 161 / 89; Pulse 84; Resp 14; Pulse Ox 100% ; bp 23:07 BP 150 / 65; Pulse 87; Resp 16; Pulse Ox 98% on R/A; mt 12/04 00:24 BP 158 / 107; Pulse 82; Resp 16; Pulse Ox 100% ; bp 02:30 BP 171 / 96; Pulse 80; Resp 14; Pulse Ox 99% ; bp 12/03 20:48 Body Mass Index 43.90 (123.38 kg, 167.64 cm) aj1 MDM: 12/03 21:02 Patient medically screened. 12/04 02:00 Data reviewed: vital signs, nurses notes, lab test result(s), EKG, radiologic studies, cp plain films. 02:00 Physician consultation: on-call COSTA Best for DR Jones requests patient be cp transferred to [facility] [place] for continued monitoring. 12/03 21:49 Order name: Basic Metabolic Panel cp 12/03 21:49 Order name: CBC with Diff cp 12/03 21:49 Order name: Ckmb cp 12/03 21:49 Order name: CPK; Complete Time: 23:17 cp 12/03 21:49 Order name: LFT's; Complete Time: 23:17 cp 12/04 00:24 Interpretation: Normal except: TP 6.1; ALB 2.0; GLOB 4.1; A/G 0.5. cp 12/03 21:49 Order name: Magnesium; Complete Time: 23:17 cp 12/03 21:49 Order name: NT PRO-BNP cp 12/03 21:49 Order name: PT-INR; Complete Time: 23:17 cp 12/03 21:49 Order name: Ptt, Activated; Complete Time: 23:17 cp 12/03 21:49 Order name: Troponin (emerg Dept Use Only); Complete Time: 23:17 cp 12/03 21:49 Order name: Type And Screen; Complete Time: 00:23 cp 12/03 21:49 Order name: Basic Metabolic Panel; Complete Time: 23:17 EDMS 12/03 21:49 Order name: CBC with Automated Diff; Complete Time: 23:17 EDMS 12/03 23:17 Interpretation: Normal except: RBC 3.30; HGB 9.8; HCT 28.7. cp 12/03 21:49 Order name: CKMB Creatine Kinase MB; Complete Time: 23:17 EDMS 12/03 21:00 Order name: Orthostatics; Complete Time: 21:35 cp 12/03 21:49 Order name: XRAY Chest (1 view) cp 12/03 21:49 Order name: EKG; Complete Time: 21:49 cp 12/03 21:49 Order name: Cardiac monitoring; Complete Time: 22:03 cp 12/03 21:49 Order name: EKG - Nurse/Tech; Complete Time: 22:22 cp 12/03 21:49 Order name: IV Saline Lock; Complete Time: 22:48 cp 12/03 21:49 Order name: Labs collected and sent; Complete Time: 22:48 cp 12/03 21:49 Order name: O2 Per Protocol; Complete Time: 22:03 cp 12/03 21:49 Order name: O2 Sat Monitoring; Complete Time: 22:03 cp 12/03 21:49 Order name: Urine Dipstick-Ancillary (obtain specimen); Complete Time: 22:48 cp 12/03 21:49 Order name: NT PRO-BNP; Complete Time: 23:17 EDMS 12/03 22:54 Order name: Urine Dipstick--Ancillary (enter results); Complete Time: 23:17 mw2 12/03 22:54 Order name: Urine --Ancillary (enter results); Complete Time: 23:17 mw2 EC/30 22:25 Rate is 82 beats/min. Rhythm is regular. NH interval is normal. QRS interval is normal. cp QT interval is normal. No ST changes noted. Interpreted by me. Reviewed by me. Administered Medications: 12/04 02:34 Drug: Lasix 40 mg Route: IVP; Site: right antecubital; jd3 02:50 Follow up: Response: No adverse reaction bp Disposition: 12:33 Co-signature as Attending Physician, Glen Blackwood MD I agree with the assessment and wa plan of care. Disposition: 12/04/17 02:35 Transfer ordered to Other Acute Care Facility. Diagnosis are Gastrointestinal hemorrhage, unspecified, Anemia in chronic diseases classified elsewhere. - Reason for transfer: Higher level of care. - Accepting physician is DR Hadley. - Condition is Stable. - Problem is new. - Symptoms are unchanged. Signatures: Dispatcher [employer] Arminda Catalan RN RN aj1 Josh Alanis PA PA Glen Griffith MD MD wa Davies, Jonathon RN RN jd3 Stephan Sanon RN RN bp Corrections: (The following items were deleted from the chart) 03:43 02:35 12/04/2017 02:35 Transfer ordered to Other Acute Care Facility. Diagnosis is bp Gastrointestinal hemorrhage, unspecified; Anemia in chronic diseases classified elsewhere. Reason for transfer: Higher level of care. Accepting physician is DR Hadley. Condition is Stable. Problem is new. Symptoms are unchanged. cp
--- NOTE | 2017-12-04 02:36 | ER ---
Nurse's Notes [facility] Name: Sherita Patel Age: 42 yrs Sex: Female : 1975 Arrival Date: 12/03/2017 Time: 20:34 Bed 20 Private MD: Diagnosis: Gastrointestinal hemorrhage, unspecified;Anemia in chronic diseases classified elsewhere Presentation: 12/03 20:42 Presenting complaint: Patient states: She was discharged from this hospital 2 weeks aj1 ago, while she was admitted she got 2 units of blood. She followed up with GI and had scopes done, but they have been normal. Yesterday she started having rectal bleeding again. Reports generalized fatigue Denies pain at this time. Denies SOB, denies dizziness States that she tripped in the parking lot, abrasion noted to right arm. States she hit her knee too, but she is not hurting from that fall at this time. Transition of care: patient was not received from another setting of care. Onset of symptoms was December 02, 2017. Risk Assessment: Do you want to hurt yourself or someone else? Patient reports no desire to harm self or others. Initial Sepsis Screen: Does the patient meet any 2 criteria? No. Patient's initial sepsis screen is negative. Does the patient have a suspected source of infection? No. Patient's initial sepsis screen is negative. Care prior to arrival: None. 20:42 Method Of Arrival: Wheelchair aj1 20:42 Acuity: ERNST 2 aj1 Triage Assessment: 20:48 General: Appears in no apparent distress. uncomfortable, Behavior is calm, cooperative, aj1 appropriate for age. General: Reports fatigue for 1-2 days. Pain: Denies pain. Neuro: Level of Consciousness is awake, alert, obeys commands, Oriented to person, place, time, situation, Denies blurred vision dizziness. Cardiovascular: Patient's skin is warm and dry. Respiratory: Airway is patent Respiratory effort is even, unlabored, Respiratory pattern is regular, symmetrical, Denies shortness of breath. Derm: Skin is pale. 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 - Social history:: Smoking status: Patient/guardian denies using tobacco, the patient reports quitting approximately 3 years ago. - Ebola Screening: : Patient denies travel to an Ebola-affected area in the 21 days before illness onset. Screenin:55 Abuse screen: Denies threats or abuse. Denies injuries from another. Nutritional bp screening: No deficits noted. Tuberculosis screening: No symptoms or risk factors identified. Fall Risk Fall in past 12 months (25 points). No secondary diagnosis (0 pts). No IV (0 pts). Ambulatory Aid- None/Bed Rest/Nurse Assist (0 pts). Gait- Normal/Bed Rest/Wheelchair (0 pts) Mental Status- Oriented to own ability (0 pts). Total [place] Fall Scale indicates Low Risk Score (25-44 pts). Fall prevention measures have been instituted. Side Rails Up X 2 Placed close to Nursing Station Frequent Obs/Assesments occuring Family Present and informed to notify staff if they need to leave bedside As available Patient and Family Educated on Fall Prevention Program and strategies. Assessment: 21:00 General: Appears in no apparent distress. comfortable, obese, Behavior is calm, bp cooperative, appropriate for age. Pain: Denies pain. Neuro: Level of Consciousness is awake, alert, obeys commands, Oriented to person, place, time, situation, Appropriate for age. Cardiovascular: Rhythm is sinus rhythm. Respiratory: Airway is patent Respiratory effort is even, unlabored, Respiratory pattern is regular, symmetrical. GI: Reports rectal bleeding. : No signs and/or symptoms were reported regarding the genitourinary system. EENT: No deficits noted. Derm: Skin is pale, Skin temperature is cool. Musculoskeletal: Circulation, motion, and sensation intact. Range of motion: intact in all extremities. 22:52 Reassessment: ALL CURRENT ORDER COMPLETED, RESULTS PENDING. bp 12/04 00:25 Reassessment: PT RESTING QUIETLY, VS STABLE, DISPO PENDING. bp 02:50 Reassessment: PT TO BE TRANSFERRED TO [facility] FOR GI, TRANSPORT EN bp ROUTE. Vital Signs: 12/03 20:48 BP 167 / 102; Pulse 80; Resp 18; Temp 97.6; Pulse Ox 98% on R/A; Weight 123.38 kg (R); aj1 Height 5 ft. 6 in. (167.64 cm) (R); Pain 0/10; 21:20 BP 190 / 77 Supine; Pulse 79; Resp 14; Pulse Ox 99% ; bp 21:30 BP 179 / 92 Sitting; Pulse 82; Resp 16; Pulse Ox 99% ; bp 21:35 BP 179 / 99 Standing; Pulse 82; Resp 14; Pulse Ox 97% ; bp 22:52 BP 161 / 89; Pulse 84; Resp 14; Pulse Ox 100% ; bp 23:07 BP 150 / 65; Pulse 87; Resp 16; Pulse Ox 98% on R/A; mt 12/04 00:24 BP 158 / 107; Pulse 82; Resp 16; Pulse Ox 100% ; bp 02:30 BP 171 / 96; Pulse 80; Resp 14; Pulse Ox 99% ; bp 12/03 20:48 Body Mass Index 43.90 (123.38 kg, 167.64 cm) aj1 ED Course: 12/03 20:34 Patient arrived in ED. es 20:47 Triage completed. aj1 20:48 Arm band placed on. aj1 20:55 Stephan Sanon, KATERINE is Primary Nurse. bp 20:55 Patient has correct armband on for positive identification. Placed in gown. Bed in low bp position. Call light in reach. Side rails up X2. Adult w/ patient. 20:59 Josh Alanis PA is PHCP. cp 20:59 Glen Blackwood MD is Attending Physician. cp 22:18 XRAY Chest (1 view) In Process Unspecified. EDMS 22:30 Inserted saline lock: 20 gauge in right antecubital area, using aseptic technique. bp Blood collected. 12/04 02:50 Report given to MARIYA GARCIAS \T\ [facility]. bp Administered Medications: 02:34 Drug: Lasix 40 mg Route: IVP; Site: right antecubital; jd3 02:50 Follow up: Response: No adverse reaction bp Outcome: 02:35 ER care complete, transfer ordered by . cp 03:43 Patient left the ED. bp Signatures: Dispatcher [employer] Arminda Catalan RN RN aj1 Hallie Barrera Corey, PA PA cp Thompson, Moriah mt Davies, Jonathon RN RN jd3 Stephan Sanon RN RN bp
[2017-12-04 03:56] VITALS: TEMP 97.6
[2017-12-04 04:04] VITALS: BP 171/96; O2SAT 99
--- NOTE | 2017-12-04 08:16 | RAD REPORT ---
EXAM DESCRIPTION: RAD - Chest Single View - 12/03/2017 10:20 pm CLINICAL HISTORY: lower extremity swelling Chest pain. COMPARISON: Chest Pa And Lat (2 Views) dated 11/15/2017; Chest Pa And Lat (2 Views) dated 11/14/2017; Chest Single View dated 11/13/2017; Chest Pa And Lat (2 Views) dated 11/13/2017 FINDINGS: Portable technique limits examination quality. The lungs are grossly clear. The heart is mildly enlarged in size. No displaced fractures. IMPRESSION: No acute intrathoracic process suspected.
--- NOTE | 2017-12-05 06:10 | EKG ---
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
== END 2017-12-04 03:43 ==
LOC: ER 20:30
DX: D63.8 Anemia in other chronic diseases classified elsewhere (principal); N28.9 Disorder of kidney and ureter, unspecified; E11.9 Type 2 diabetes mellitus without complications; E78.5 Hyperlipidemia, unspecified; Z79.4 Long term (current) use of insulin; Z91.013 Allergy to seafood
CPT/HCPCS: 36415; 71045; 80048; 80076; 81003; 81025; 82550; 82553; 83735; 83880; 84484; 85025; 85610; 85730; 86850; 86900; 86901; 93005; 96374; 99284

== ENCOUNTER 2018-05-31 16:40 | Inpatient (IN) | payer OTHER ==
--- OUTSIDE RECORDS SUMMARY | 2018-05-31 16:43 | XMS REPORT | Clinical Summary ---
:1975 Author Organization [facility] Address [address] [place] [address] Care Team Providers Name Role Phone Unavailable Primary Care Provider Unavailable Allergies No Known Allergies Medications Medication Sig Dispensed Refills Start End Date Status Date insulin lispro Inject 0 Active (HUMALOG) 100 subcutaneously 3 unit/mL (three) times injectionIndicatio daily before ns: type 2 meals. diabetes mellitus, sliding scale insulin glargine Inject 0 Active (LANTUS) 100 subcutaneously unit/mL injection nightly Use as directed . metoprolol Take 100 mg by 0 Active (LOPRESSOR) 100 MG mouth 2 (two) tabletIndications: times daily. hypertension albuterol HFA Inhale 2 puffs by 0 Active (VENTOLIN HFA) 90 mouth via inhaler mcg/actuation every 6 (six) inhaler hours as needed for Wheezing. hydrALAZINE Take 50 mg by 0 Active (APRESOLINE) 50 MG mouth every 6 tablet (six) hours. spironolactone Take 25 mg by 0 Active (ALDACTONE) 25 MG mouth. tablet mometasone 2 sprays by Nasal 0 Active (NASONEX) 50 route. mcg/actuation nasal spray sevelamer Take 1 tablet (800 90 tablet 0 06/05/19 Active (RENVELA) 800 mg mg total) by mouth 9 19 tablet 3 (three) times daily with meals for 30 days. povidone-iodine Apply affected 480 mL 0 Active (BETADINE) 10 % area as needed. 9 external solution pantoprazole Take 1 tablet (40 30 tablet 0 06/05/19 Active (PROTONIX) 40 MG mg total) by mouth 9 19 tablet daily for 30 days. NIFEdipine (ADALAT Take 1 tablet (60 60 tablet 0 06/05/19 Active CC) 60 MG 24 hr mg total) by mouth 9 tablet 2 (two) times daily for 30 days. mupirocin Apply affected 22 g 0 Active (BACTROBAN) 2 % area daily. 9 ointment isosorbide Take 1 tablet (60 30 tablet 0 06/06/19 Active mononitrate mg total) by mouth 12 23 (IMDUR) 60 MG 24 daily for 30 days. hr tablet ergocalciferol Take 1 capsule 4 capsule 0 06/10/19 Active (ERGOCALCIFEROL) (50,000 Units 12 23 50,000 unit total) by mouth capsule once a week for 30 days. bumetanide (BUMEX) Take 1 tablet (2 60 tablet 0 06/05/19 Active 2 MG tablet mg total) by mouth 12 23 2 (two) times daily for 30 days. folic Take 1 tablet by 30 tablet 0 06/05/19 Active acid-multivitamins mouth daily for 30 9 (NEPHRO-VAIBHAV) 0.8 days. mg Tab tablet lisinopril Take 5 mg by 0 05/05/19 Discontinued (PRINIVIL,ZESTRIL) mouth. 19 5 MG tabletIndications: hypertension atorvastatin Take 20 mg by 0 05/05/19 Discontinued (LIPITOR) 20 MG mouth. 19 tabletIndications: hyperlipidemia doxazosin Take 2 mg by mouth 0 05/05/19 Discontinued (CARDURA) 2 MG nightly. 19 tablet furosemide (LASIX) Take 60 mg by 0 05/05/19 Discontinued 40 MG tablet mouth daily. 19 mINOCYCLine Take 1 capsule 20 capsule 0 05/15/19 (MINOCIN,DYNACIN) (100 mg total) by 12 23 100 MG capsule mouth every 12 (twelve) hours for 10 days. Active Problems Problem Noted Date SHWETHA (acute kidney injury) 04/24/2018 Syncope 04/23/2018 Encounters Date Type Specialty Care Team Description 04/24/2018 Travel 04/23/2018 - Hospital Encounter General Internal Tanja SHWETHA (acute kidney injury) (HCC); 05/05/2018 Medicine i, Vasovagal syncope; Beth, Hypertensive urgency; Hypokalemia; Arif, Sahar, Morbid obesity ([facility]); Seizure disorder ([facility]); Enoch, History of CVA (cerebrovascular accident); MD Mulu Hypertension, unspecified type; Hyperlipidemia, unspecified hyperlipidemia type; Syncope, unspecified syncope type; Traumatic rhabdomyolysis, initial encounter ([facility]); Pericardial effusion without cardiac tamponade; CKD (chronic kidney disease) stage 3, GFR 30-59 ml/min ([facility]); Injury of toe on left foot, initial encounter; Onycholysis; Abscess of left great toe 04/23/2018 Orders Only General Internal Medicine after 05/30/2017 Social History Tobacco Use Types Packs/Day Years Used Date Former Smoker Smokeless Tobacco: Never Used Alcohol Use Drinks/Week oz/Week Comments No Alcohol Habits Answer Date Recorded How often do you have a drink containing alcohol? Never 04/24/2018 How many drinks containing alcohol do you have on a typical Not asked day when you are drinking? How often do you have six or more drinks on one occasion? Not asked Sex Assigned at Date Recorded Not on file Job Start Date Occupation Industry Not on file Not on file Not on file Travel History Travel Start Travel End No recent travel history available. Last Filed Vital Signs Vital Sign Reading Time Taken Blood Pressure 135/63 05/05/2018 11:02 AM PHARMACY MESSENGER Pulse 78 05/05/2018 11:19 AM PHARMACY MESSENGER Temperature 37.3 C (99.2 F) 05/05/2018 11:02 AM PHARMACY MESSENGER Respiratory Rate 18 05/05/2018 11:19 AM PHARMACY MESSENGER Oxygen Saturation 96% 05/05/2018 11:19 AM PHARMACY MESSENGER Inhaled Oxygen Concentration - - Weight 138.3 kg (305 lb) 05/05/2018 5:00 AM PHARMACY MESSENGER Height 167.6 cm (5' 6") 04/23/2018 11:00 PM PHARMACY MESSENGER Body Mass Index 49.23 05/05/2018 5:00 AM PHARMACY MESSENGER Plan of Treatment Not on file Procedures Procedure Name Priority Date/Time Associated Comments Diagnosis REPORT OF PROCEDURE - 05/22/2018 11:51 ENDOSCOPY SCAN AM PHARMACY MESSENGER RHYTHM STRIP - SCAN 05/22/2018 11:50 AM PHARMACY MESSENGER POCT-GLUCOSE METER Routine 05/05/2018 2:51 Results for this PM PHARMACY MESSENGER procedure are in the results section. CBC W/PLT COUNT & AUTO Routine 05/05/2018 11:42 Results for this DIFFERENTIAL AM PHARMACY MESSENGER procedure are in the results section. CBC W/PLT COUNT & AUTO Routine 05/05/2018 11:42 Results for this DIFFERENTIAL AM PHARMACY MESSENGER procedure are in the results section. FERRITIN Routine 05/05/2018 11:42 Results for this AM PHARMACY MESSENGER procedure are in the results section. MAGNESIUM Routine 05/05/2018 11:38 Results for this AM PHARMACY MESSENGER procedure are in the results section. BASIC METABOLIC PANEL Routine 05/05/2018 11:38 Results for this (7) AM PHARMACY MESSENGER procedure are in the results section. POCT-GLUCOSE METER Routine 05/05/2018 11:04 Results for this AM PHARMACY MESSENGER procedure are in the results section. POCT-GLUCOSE METER Routine 05/05/2018 7:53 Results for this AM PHARMACY MESSENGER procedure are in the results section. PROTEIN, RANDOM URINE Routine 05/04/2018 10:39 Results for this PM PHARMACY MESSENGER procedure are in the results section. CREATININE, RANDOM Routine 05/04/2018 10:39 Results for this URINE PM PHARMACY MESSENGER procedure are in the results section. UREA NITROGEN, RANDOM Routine 05/04/2018 10:39 Results for this URINE PM PHARMACY MESSENGER procedure are in the results section. POCT-GLUCOSE METER Routine 05/04/2018 8:45 Results for this PM PHARMACY MESSENGER procedure are in the results section. POCT-GLUCOSE METER Routine 05/04/2018 4:52 Results for this PM PHARMACY MESSENGER procedure are in the results section. POCT-GLUCOSE METER Routine 05/04/2018 12:18 Results for this PM PHARMACY MESSENGER procedure are in the results section. POCT-GLUCOSE METER Routine 05/04/2018 7:29 Results for this AM PHARMACY MESSENGER procedure are in the results section. CBC W/PLT COUNT & AUTO Routine 05/04/2018 5:08 Results for this DIFFERENTIAL AM PHARMACY MESSENGER procedure are in the results section. CBC W/PLT COUNT & AUTO Routine 05/04/2018 5:08 Results for this DIFFERENTIAL AM PHARMACY MESSENGER procedure are in the results section. MAGNESIUM Routine 05/04/2018 5:08 Results for this AM PHARMACY MESSENGER procedure are in the results section. BASIC METABOLIC PANEL Routine 05/04/2018 5:08 Results for this (7) AM PHARMACY MESSENGER procedure are in the results section. POCT-GLUCOSE METER Routine 05/03/2018 7:48 Results for this PM PHARMACY MESSENGER procedure are in the results section. POCT-GLUCOSE METER Routine 05/03/2018 5:07 Results for this PM PHARMACY MESSENGER procedure are in the results section. POCT-GLUCOSE METER Routine 05/03/2018 12:43 Results for this PM PHARMACY MESSENGER procedure are in the results section. POCT-GLUCOSE METER Routine 05/03/2018 7:25 Results for this AM PHARMACY MESSENGER procedure are in the results section. MAGNESIUM Routine 05/03/2018 3:29 Results for this AM PHARMACY MESSENGER procedure are in the results section. BASIC METABOLIC PANEL Routine 05/03/2018 3:29 Results for this (7) AM PHARMACY MESSENGER procedure are in the results section. POCT-GLUCOSE METER Routine 05/02/2018 9:15 Results for this PM PHARMACY MESSENGER procedure are in the results section. POCT-GLUCOSE METER Routine 05/02/2018 4:36 Results for this PM PHARMACY MESSENGER procedure are in the results section. POCT-GLUCOSE METER Routine 05/02/2018 11:58 Results for this AM PHARMACY MESSENGER procedure are in the results section. MAGNESIUM Routine 05/02/2018 10:51 Results for this AM PHARMACY MESSENGER procedure are in the results section. BASIC METABOLIC PANEL Routine 05/02/2018 10:51 Results for this (7) AM PHARMACY MESSENGER procedure are in the results section. POCT-GLUCOSE METER Routine 05/02/2018 7:02 Results for this AM PHARMACY MESSENGER procedure are in the results section. POCT-GLUCOSE METER Routine 05/01/2018 8:57 Results for this PM PHARMACY MESSENGER procedure are in the results section. POCT-GLUCOSE METER Routine 05/01/2018 4:37 Results for this PM PHARMACY MESSENGER procedure are in the results section. POCT-GLUCOSE METER Routine 05/01/2018 11:22 Results for this AM PHARMACY MESSENGER procedure are in the results section. POCT-GLUCOSE METER Routine 05/01/2018 7:10 Results for this AM PHARMACY MESSENGER procedure are in the results section. CBC W/PLT COUNT & AUTO Routine 05/01/2018 5:21 Results for this DIFFERENTIAL AM PHARMACY MESSENGER procedure are in the results section. MAGNESIUM Routine 05/01/2018 5:21 Results for this AM PHARMACY MESSENGER procedure are in the results section. CBC W/PLT COUNT & AUTO Routine 05/01/2018 5:21 Results for this DIFFERENTIAL AM PHARMACY MESSENGER procedure are in the results section. BASIC METABOLIC PANEL Routine 05/01/2018 5:21 Results for this (7) AM PHARMACY MESSENGER procedure are in the results section. POCT-GLUCOSE METER Routine 04/30/2018 10:52 Results for this PM PHARMACY MESSENGER procedure are in the results section. TRANSFUSION SERVICE 04/30/2018 5:53 REPORT - SCAN PM PHARMACY MESSENGER POCT-GLUCOSE METER Routine 04/30/2018 4:49 Results for this PM PHARMACY MESSENGER procedure are in the results section. URIC ACID Routine 04/30/2018 12:19 Results for this PM PHARMACY MESSENGER procedure are in the results section. POCT-GLUCOSE METER Routine 04/30/2018 11:14 Results for this AM PHARMACY MESSENGER procedure are in the results section. CBC W/PLT COUNT & AUTO Routine 04/30/2018 8:12 Results for this DIFFERENTIAL AM PHARMACY MESSENGER procedure are in the results section. CBC W/PLT COUNT & AUTO Routine 04/30/2018 8:12 Results for this DIFFERENTIAL AM PHARMACY MESSENGER procedure are in the results section. MAGNESIUM Routine 04/30/2018 8:12 Results for this AM PHARMACY MESSENGER procedure are in the results section. BASIC METABOLIC PANEL Routine 04/30/2018 8:12 Results for this (7) AM PHARMACY MESSENGER procedure are in the results section. POCT-GLUCOSE METER Routine 04/30/2018 7:10 Results for this AM PHARMACY MESSENGER procedure are in the results section. PREPARE LEUKO-REDUCED Routine 04/29/2018 11:54 Results for this RBC PM PHARMACY MESSENGER procedure are in the results section. POCT-GLUCOSE METER Routine 04/29/2018 7:52 Results for this PM PHARMACY MESSENGER procedure are in the results section. TRANSFUSION SERVICE 04/29/2018 5:53 REPORT - SCAN PM PHARMACY MESSENGER POCT-GLUCOSE METER Routine 04/29/2018 5:24 Results for this PM PHARMACY MESSENGER procedure are in the results section. POCT-GLUCOSE METER Routine 04/29/2018 11:50 Results for this AM PHARMACY MESSENGER procedure are in the results section. ECHOCARDIOGRAM REPORT 04/29/2018 10:20 - SCAN AM PHARMACY MESSENGER POCT-GLUCOSE METER Routine 04/29/2018 7:54 Results for this AM PHARMACY MESSENGER procedure are in the results section. CBC W/PLT COUNT & AUTO Routine 04/29/2018 5:10 Results for this DIFFERENTIAL AM PHARMACY MESSENGER procedure are in the results section. CBC W/PLT COUNT & AUTO Routine 04/29/2018 5:10 Results for this DIFFERENTIAL AM PHARMACY MESSENGER procedure are in the results section. MAGNESIUM Routine 04/29/2018 5:10 Results for this AM PHARMACY MESSENGER procedure are in the results section. BASIC METABOLIC PANEL Routine 04/29/2018 5:10 Results for this (7) AM PHARMACY MESSENGER procedure are in the results section. TRANSFUSE Routine 04/28/2018 9:27 LEUKO-REDUCED RED PM PHARMACY MESSENGER BLOOD CELLS POCT-GLUCOSE METER Routine 04/28/2018 8:04 Results for this PM PHARMACY MESSENGER procedure are in the results section. POCT-GLUCOSE METER Routine 04/28/2018 5:03 Results for this PM PHARMACY MESSENGER procedure are in the results section. 2D ECHO W/ DOPPLER ESTEE 04/28/2018 4:05 Results for this (CW/PW/COLOR) PM PHARMACY MESSENGER procedure are in the results section. ABORH, MANUAL STAT 04/28/2018 12:53 Results for this PM PHARMACY MESSENGER procedure are in the results section. POCT-GLUCOSE METER Routine 04/28/2018 12:30 Results for this PM PHARMACY MESSENGER procedure are in the results section. TYPE AND SCREEN, Routine 04/28/2018 11:08 Results for this AUTOMATED AM PHARMACY MESSENGER procedure are in the results section. POCT-GLUCOSE METER Routine 04/28/2018 7:32 Results for this AM PHARMACY MESSENGER procedure are in the results section. CBC W/PLT COUNT & AUTO Routine 04/28/2018 5:20 Results for this DIFFERENTIAL AM PHARMACY MESSENGER procedure are in the results section. MAGNESIUM Routine 04/28/2018 5:20 Results for this AM PHARMACY MESSENGER procedure are in the results section. BASIC METABOLIC PANEL Routine 04/28/2018 5:20 Results for this (7) AM PHARMACY MESSENGER procedure are in the results section. CBC W/PLT COUNT & AUTO Routine 04/28/2018 5:20 Results for this DIFFERENTIAL AM PHARMACY MESSENGER procedure are in the results section. POCT-GLUCOSE METER Routine 04/27/2018 10:17 Results for this PM PHARMACY MESSENGER procedure are in the results section. POCT-GLUCOSE METER Routine 04/27/2018 5:16 Results for this PM PHARMACY MESSENGER procedure are in the results section. POCT-GLUCOSE METER Routine 04/27/2018 11:36 Results for this AM PHARMACY MESSENGER procedure are in the results section. POCT-GLUCOSE METER Routine 04/27/2018 7:04 Results for this AM PHARMACY MESSENGER procedure are in the results section. BASIC METABOLIC PANEL Routine 04/27/2018 5:30 Results for this (7) AM PHARMACY MESSENGER procedure are in the results section. VITAMIN B12 AND FOLATE Routine 04/27/2018 5:30 Results for this AM PHARMACY MESSENGER procedure are in the results section. MAGNESIUM Routine 04/27/2018 5:30 Results for this AM PHARMACY MESSENGER procedure are in the results section. UREA NITROGEN, RANDOM Routine 04/27/2018 5:06 Results for this URINE AM PHARMACY MESSENGER procedure are in the results section. CREATININE, RANDOM Routine 04/27/2018 5:06 Results for this URINE AM PHARMACY MESSENGER procedure are in the results section. POCT-GLUCOSE METER Routine 04/26/2018 4:43 Results for this PM PHARMACY MESSENGER procedure are in the results section. POCT-GLUCOSE METER Routine 04/26/2018 11:23 Results for this AM PHARMACY MESSENGER procedure are in the results section. EEG AWAKE AND DROWSY Routine 04/26/2018 10:55 Results for this AM PHARMACY MESSENGER procedure are in the results section. POCT-GLUCOSE METER Routine 04/26/2018 7:11 Results for this AM PHARMACY MESSENGER procedure are in the results section. CBC W/PLT COUNT & AUTO Routine 04/26/2018 6:20 Results for this DIFFERENTIAL AM PHARMACY MESSENGER procedure are in the results section. CREATINE KINASE (CK) Routine 04/26/2018 6:20 Results for this AM PHARMACY MESSENGER procedure are in the results section. BASIC METABOLIC PANEL Routine 04/26/2018 6:20 Results for this (7) AM PHARMACY MESSENGER procedure are in the results section. CBC W/PLT COUNT & AUTO Routine 04/26/2018 6:20 Results for this DIFFERENTIAL AM PHARMACY MESSENGER procedure are in the results section. POCT-GLUCOSE METER Routine 04/25/2018 8:21 Results for this PM PHARMACY MESSENGER procedure are in the results section. POCT-GLUCOSE METER Routine 04/25/2018 6:00 Results for this PM PHARMACY MESSENGER procedure are in the results section. POCT-GLUCOSE METER Routine 04/25/2018 11:57 Results for this AM PHARMACY MESSENGER procedure are in the results section. POCT-GLUCOSE METER Routine 04/25/2018 7:35 Results for this AM PHARMACY MESSENGER procedure are in the results section. BASIC METABOLIC PANEL Routine 04/25/2018 7:15 Results for this (7) AM PHARMACY MESSENGER procedure are in the results section. VITAMIN D, 25-HYDROXY Routine 04/25/2018 7:15 Results for this AM PHARMACY MESSENGER procedure are in the results section. IRON, TIBC, % SAT. Routine 04/25/2018 7:15 Results for this (WITHOUT FERRITIN) AM PHARMACY MESSENGER procedure are in the results section. PHOSPHORUS Routine 04/25/2018 7:15 Results for this AM PHARMACY MESSENGER procedure are in the results section. PTH, INTACT Routine 04/25/2018 7:15 Results for this AM PHARMACY MESSENGER procedure are in the results section. CREATINE KINASE (CK) Routine 04/25/2018 7:15 Results for this AM PHARMACY MESSENGER procedure are in the results section. URINALYSIS W/ REFLEX STAT 04/24/2018 11:20 Results for this URINE CULTURE PM PHARMACY MESSENGER procedure are in the results section. SODIUM, RANDOM URINE STAT 04/24/2018 11:20 Results for this PM PHARMACY MESSENGER procedure are in the results section. CREATININE, RANDOM STAT 04/24/2018 11:20 Results for this URINE PM PHARMACY MESSENGER procedure are in the results section. PROTEIN, RANDOM URINE STAT 04/24/2018 11:20 Results for this PM PHARMACY MESSENGER procedure are in the results section. POCT-GLUCOSE METER Routine 04/24/2018 8:10 Results for this PM PHARMACY MESSENGER procedure are in the results section. BASIC METABOLIC PANEL Routine 04/24/2018 6:49 Results for this (7) PM PHARMACY MESSENGER procedure are in the results section. POCT-GLUCOSE METER Routine 04/24/2018 5:29 Results for this PM PHARMACY MESSENGER procedure are in the results section. CREATINE KINASE (CK) Routine 04/24/2018 4:58 Results for this PM PHARMACY MESSENGER procedure are in the results section. HEMOGLOBIN A1C AP Routine 04/24/2018 4:58 Results for this PM PHARMACY MESSENGER procedure are in the results section. TROPONIN I STAT 04/24/2018 4:58 Results for this PM PHARMACY MESSENGER procedure are in the results section. US RENAL COMPLETE Routine 04/24/2018 4:07 Results for this PM PHARMACY MESSENGER procedure are in the results section. POCT-GLUCOSE METER Routine 04/24/2018 3:03 Results for this PM PHARMACY MESSENGER procedure are in the results section. ECHOCARDIOGRAM REPORT 04/24/2018 1:50 - SCAN PM PHARMACY MESSENGER LACTIC ACID, VENOUS, STAT 04/24/2018 11:04 Results for this WHOLE BLOOD AM PHARMACY MESSENGER procedure are in the results section. 2D ECHO W/ DOPPLER STAT 04/24/2018 9:25 Results for this (CW/PW/COLOR) AM PHARMACY MESSENGER procedure are in the results section. POCT-GLUCOSE METER Routine 04/24/2018 7:48 Results for this AM PHARMACY MESSENGER procedure are in the results section. POCT-GLUCOSE METER Routine 04/24/2018 7:30 Results for this AM PHARMACY MESSENGER procedure are in the results section. CBC W/PLT COUNT & AUTO Routine 04/24/2018 6:32 Results for this DIFFERENTIAL AM PHARMACY MESSENGER procedure are in the results section. URIC ACID Routine 04/24/2018 6:32 Results for this AM PHARMACY MESSENGER procedure are in the results section. TROPONIN I STAT 04/24/2018 6:32 Results for this AM PHARMACY MESSENGER procedure are in the results section. CBC W/PLT COUNT & AUTO Routine 04/24/2018 6:32 Results for this DIFFERENTIAL AM PHARMACY MESSENGER procedure are in the results section. ECG 12-LEAD Routine 04/24/2018 6:10 AM PHARMACY MESSENGER Procedure Note - Interface, External Ris In - 04/24/2018 6:13 AM PHARMACY MESSENGER Ventricular Rate 110 BPM Atrial Rate 110 BPM P-R Interval 160 ms QRS Duration 88 ms Q-T Interval 296 ms QTC Calculation(Bazett) 400 ms P Morrison 52 degrees R Morrison -13 degrees T Morrison -7 degrees Sinus tachycardia Low voltage QRS Nonspecific T wave abnormality Abnormal ECG When compared with ECG of 24-APR-2018 06:06, Previous ECG has undetermined rhythm, needs review ECG 12-LEAD STAT 04/24/2018 6:10 AM PHARMACY MESSENGER ECG 12-LEAD Routine 04/24/2018 6:06 AM PHARMACY MESSENGER Procedure Note - Interface, External Ris In - 04/24/2018 6:13 AM PHARMACY MESSENGER Ventricular Rate 0 BPM Atrial Rate 0 BPM QRS Duration 0 ms Q-T Interval 0 ms QTC Calculation(Bazett) 0 ms R Morrison 0 degrees T Morrison 0 degrees No QRS complexes found, no ECG analysis possible When compared with ECG of 23-APR-2018 23:42, Current undetermined rhythm precludes rhythm comparison, needs review SODIUM, RANDOM URINE Routine 04/24/2018 2:27 AM PHARMACY MESSENGER CREATININE, RANDOM URINE Routine 04/24/2018 2:27 AM PHARMACY MESSENGER RAPID DRUG SCREEN, URINE STAT 04/24/2018 2:27 AM PHARMACY MESSENGER SCREEN, URINE STAT 04/24/2018 2:27 AM PHARMACY MESSENGER URINALYSIS W/ MICROSCOPIC Routine 04/24/2018 2:27 AM PHARMACY MESSENGER CBC W/PLT COUNT & AUTO Routine 04/24/2018 12:51 AM PHARMACY MESSENGER Results for this DIFFERENTIAL procedure are in the results section. CREATINE KINASE (CK) Routine 04/24/2018 12:51 AM PHARMACY MESSENGER CBC W/PLT COUNT & AUTO Routine 04/24/2018 12:51 AM PHARMACY MESSENGER Results for this DIFFERENTIAL procedure are in the results section. TSH/FREE T4 IF INDICATED Routine 04/24/2018 12:51 AM PHARMACY MESSENGER COMPREHENSIVE METABOLIC Routine 04/24/2018 12:51 AM PHARMACY MESSENGER Results for this PANEL procedure are in the results section. MAGNESIUM Routine 04/24/2018 12:51 AM PHARMACY MESSENGER ECG 12-LEAD Routine 04/23/2018 11:42 PM PHARMACY MESSENGER Procedure Note - Interface, External Ris In - 04/23/2018 11:46 PM PHARMACY MESSENGER Ventricular Rate 94 BPM Atrial Rate 94 BPM QRS Duration 82 ms Q-T Interval 384 ms QTC Calculation(Bazett) 480 ms R Morrison -24 degrees T Morrison -19 degrees Normal sinus rhythm Low voltage QRS Possible Anterolateral infarct , age undetermined Abnormal ECG No previous ECGs available ECG 12-LEAD STAT 04/23/2018 11:42 PM PHARMACY MESSENGER XR CHEST 1 VIEW STAT 04/23/2018 11:28 PM PHARMACY MESSENGER Results for this procedure PORTABLE/BEDSIDE are in the results section. after 05/30/2017 Results EKG-SCANNED (05/22/2018 11:51 AM PHARMACY MESSENGER) Narrative Performed At RHYTHM STRIP - SCAN (05/22/2018 11:50 AM PHARMACY MESSENGER) Narrative Performed At POC-Glucose meter (05/05/2018 2:51 PM PHARMACY MESSENGER)Only the most recent of47 resultswithin the time period is included. POC-Glucose Meter 117 (H)Comment: TESTED AT 70 - 110 mg/dL [address] [address] Specimen Blood Performing Organization Address City/State/Zipcode Phone Number [address] [address] [phone] CENTER CBC with platelet count + automated diff (05/05/2018 11:42 AM PHARMACY MESSENGER)Only the most recent of9 resultswithin the time period is included. WBC 8.0 3.5 - 10.5 K/L [facility] RBC 2.65 (L) 3.93 - 5.22 M/L [facility] Hemoglobin 7.9 (L) 11.2 - 15.7 GM/DL [facility] Hematocrit 25.1 (L) 34.1 - 44.9 % [facility] MCV 94.7 79.4 - 94.8 fL [facility] MCH 29.8 25.6 - 32.2 pg [facility] MCHC 31.5 (L) 32.2 - 35.5 GM/DL [facility] RDW 14.0 11.7 - 14.4 % [facility] Platelets 258 150 - 450 K/CU MM [facility] MPV 12.1 9.4 - 12.3 fL [facility] nRBC 0 0 - 0 /100 WBC [facility] % Neutros 66 % [facility] % Lymphs 20 % [facility] % Monos 10 % [facility] % Eos 4 % [facility] % Baso 1 % [facility] # Neutros 5.24 1.56 - 6.13 K/L [facility] # Lymphs 1.61 1.18 - 3.74 K/L [facility] # Monos 0.78 (H) 0.24 - 0.36 K/L [facility] # Eos 0.28 0.04 - 0.36 K/L [facility] # Baso 0.04 0.01 - 0.08 K/L [facility] Immature Granulocytes-Relative 0 0 - 1 % [facility] Specimen Blood - Arm, Right Performing Organization Address City/State/Zipcode Phone Number [facility] [address] [place] [address] [phone] CENTER Ferritin (05/05/2018 11:42 AM PHARMACY MESSENGER) Ferritin 568 (H) 5 - 275 ng/mL [facility] Specimen Blood - Arm, Right Performing Organization Address City/[facility]/Zipcode Phone Number [facility] [address] [place] [phone] CENTER Magnesium (05/05/2018 11:38 AM PHARMACY MESSENGER)Only the most recent of10 resultswithin the time period is included. Magnesium 1.6 1.6 - 2.6 mg/dL [facility] Specimen Blood - Arm, Right Performing Organization Address [facility] Phone Number [address] [address] [place] Basic metabolic panel (05/05/2018 11:38 AM PHARMACY MESSENGER)Only the most recent of12 resultswithin the time period is included. Sodium 143 136 - 145 meq/L [facility] Potassium 3.9 3.5 - 5.1 meq/L [facility] Chloride 112 (H) 98 - 107 meq/L [facility] CO2 24 22 - 29 meq/L [facility] BUN 47 (H) 7 - 21 mg/dL [facility] Creatinine 3.97 (H) 0.57 - 1.25 mg/dL [facility] Glucose 108 (H) 70 - 105 mg/dL [facility] Calcium 8.1 (L) 8.4 - 10.2 mg/dL [facility] EGFR 12Comment: ESTIMATED GFR IS mL/min/1.73 sq m [facility] NOT ACCURATE CREATININE [facility] CLEARANCE IN PREDICTING GLOMERULAR FILTRATION RATE. ESTIMATED GFR IS NOT APPLICABLE FOR DIALYSIS PATIENTS. Specimen Blood - Arm, Right Performing Organization Address [facility] Phone Number [address] [address] [phone] CENTER Urea Nitrogen, random urine (05/04/2018 10:39 PM PHARMACY MESSENGER)Only the most recent of2 resultswithin the time period is included. Urea Nitrogen, Ur 163 mg/dL [facility] Specimen Urine - Urine, Voided Narrative Performed At Reference Range: No Normals [facility] Performing Organization Address [facility] Phone Number [address] [address] [place] Protein, random urine (05/04/2018 10:39 PM PHARMACY MESSENGER)Only the most recent of2 resultswithin the time period is included. Protein, Urine 372 (H) 0 - 14 mg/dL [facility] Specimen Urine - Urine, Voided Performing Organization Address [facility] Phone Number [address] [address] [place] Creatinine, random urine (05/04/2018 10:39 PM PHARMACY MESSENGER)Only the most recent of4 resultswithin the time period is included. Creatinine, Ur 26.6 mg/dL [facility] Specimen Urine - Urine, Voided Narrative Performed At Reference Range: No Normals [facility] Performing Organization Address [facility] Phone Number [address] [address] [place] TRANSFUSION SERVICE REPORT - SCAN (04/30/2018 5:53 PM PHARMACY MESSENGER)Only the most recent of2 resultswithin the time period is included. Narrative Performed At Uric acid (04/30/2018 12:19 PM PHARMACY MESSENGER)Only the most recent of2 resultswithin the time period is included. Uric Acid 5.9 2.6 - 7.2 mg/dL [facility] Specimen Blood Performing Organization Address [facility] Phone Number [address] [address] [phone] [place] Prepare Leuko-Red RBC (04/29/2018 11:54 PM PHARMACY MESSENGER) CROSSMATCH COMPATIBLE SAFETRACE TX Unit ABO A Pos SAFETRACE TX UNIT NUMBER [id number] SAFETRACE TX Status TRANSFUSED SAFETRACE TX Blood Bank Product RED BLOOD CELLS SAFETRACE TX PRODUCT CODE [id number] SAFETRACE TX Specimen Other Performing Organization Address City/State/Zipcode Phone Number SAFETRACE TX ECHOCARDIOGRAM REPORT - SCAN (04/29/2018 10:20 AM PHARMACY MESSENGER) Narrative Performed At Transfuse Leuko-Red RBC (04/28/2018 9:27 PM PHARMACY MESSENGER)Only the most recent of2 resultswithin the time period is included.2D Echo W/Doppler(CW/PW/Color) (2018 4:05 PM PHARMACY MESSENGER) Ejection Fraction [facility] Narrative Performed At Transthoracic Echocardiography Report (TTE) [facility] Demographics Patient Name MERARIMiguel of Study04/28/2018 AALIYAH [id number] Gender Female Visit Number [id number] Race Unknown [id number] [id number] Number Date of Birth1975 Referring PhysicianSwin Mcmillan MD Age43 year(s) SonographerKhushboo Ortiz RDCS AnalystAlex ZadeInterpreting Physician CongMD Procedure Type of Study TTE procedure:2DECHO W DOPPLER(CW/PW/COLOR) (ESTEE) Indications:Suspected hypertensive heart disease. Clinical History h/o Pulmonary embolism, CHF, HTN, DM II, JOSEFA, Morbidly obese, SHWETHA, h/o Pericardial effusion HGB 7.0 HCT 22.3 % Height: 66 inches Weight: 134.72 kg (297 lbs) BSA: 2.37 m^2 BMI: 47.94 kg/m^2 HR: 66 bpm BP: 103/54 mmHg Summary Limited study, to assess pericardial effusion, LVEF. The left ventricle is chamber size (by PSLAX dimension) is normal (female - LVIDd 3.8-5.2cm) . Mild concentric LV hypertrophy. All of the LV segments contract normally . Estimated LVEF by qualitative assessment is normal (55-60%) . A small to moderate circumferential pericardial effusion is present; largest posteriorly at 10mm. Pericardial tamponade physiology is not evident . Signature Findings Technical Quality: Adequate visualization Left Ventricle The left ventricle is chamber size (by PSLAX di mension) is normal (female - LVIDd 3.8-5.2cm) . Mi ld concentric LV hypertrophy. All of the LV se gments contract normally . Estimated LVEF by qu alitative assessment is normal (55-60%) . Left AtriumLA size is moderately enlarged . Right VentricleNormal right ventricle structure and function. Right Atrium Normal right atrium. Aortic Valve Normal AoV structure. Mitral Valve Normal MV structure. Tricuspid ValveTV structure is normal. Un able to estimate peak systolic PA pressure; in adequate TR velocity signal. Pulmonic Valve PV is not well visualized. AortaAortic root size (SInus of Valsalva diameter) is no rmal . PericardiumA small to moderate circumferential pericardial ef fusion is present; largest posteriorly at 10mm. Pe ricardial tamponade physiology is not evident . IVC/SVC/PA/PV/PleuralThe estimated RA pressure by IVC dynamics 11-15mmHg . Chambers/Structures Left Atrium LA Dimension: 4.32 cmLA Area: 29.85 cm^2 LA Volume: 105.15 ml LA Vol. Index: 44 ml/m^2 Left Ventricle LVIDd: 5.22 cm LV Septum Diastolic: 1.35 cm LV PW Diastolic: 1.5 cm LVEDV Gustafson's:154.4 ml LVESV Gustafson's:63.77 ml LVEF Gustafson's: 58.7 %LVEDV I: 65 ml/m^2 LVESVI: 27 ml/m^2 Aorta Ao Root S of Marielos.: 3.15 cm Doppler/Quantitative Measurements Mitral Valve MV Peak E-Wave: 1.36 m/sMV Peak A-Wave: 0.81 m/s E/A Ratio: 1.67 Peak Gradient: 7.39 mmHg Deceleration Time: 218.1 msec MV Michel. Peak: Tissue Doppler E' Septal Velocity: 1.06 m/s E' Lateral Velocity: 1.06 m/s Procedure Note Interface, External Ris In - 04/29/2018 9:43 AM PHARMACY MESSENGER Transthoracic Echocardiography Report (TTE) Demographics Patient Name SHERITA GAGE Date of Study 04/28/2018 AALIYAH Gender Female Visit Number [id number] Race Unknown Room Number 922 Number Date of 1975 Referring Physician No Mcmillan MD Age 43 year(s) Check Out Clerk Khushboo Ortiz, [facility] Car Dispatcher Anton Luis Interpreting Physician VALENTIN Gar Procedure Type of Study TTE procedure:2DECHO W DOPPLER(CW/PW/COLOR) (ESTEE) Indications:Suspected hypertensive heart disease. Clinical History h/o Pulmonary embolism, CHF, HTN, DM II, JOSEFA, Morbidly obese, SHWETHA, h/o Pericardial effusion HGB 7.0 HCT 22.3 % Height: 66 inches Weight: 134.72 kg (297 lbs) BSA: 2.37 m^2 BMI: 47.94 kg/m^2 HR: 66 bpm BP: 103/54 mmHg Summary Limited study, to assess pericardial effusion, LVEF. The left ventricle is chamber size (by PSLAX dimension) is normal (female - LVIDd 3.8-5.2cm) . Mild concentric LV hypertrophy. All of the LV segments contract normally . Estimated LVEF by qualitative assessment is normal (55-60%) . A small to moderate circumferential pericardial effusion is present; largest posteriorly at 10mm. Pericardial tamponade physiology is not evident . Signature Findings Technical Quality: Adequate visualization Left Ventricle The left ventricle is chamber size (by PSLAX dimension) is normal (female - LVIDd 3.8-5.2cm) . Mild concentric LV hypertrophy. All of the LV segments contract normally . Estimated LVEF by qualitative assessment is normal (55-60%) . Left Atrium LA size is moderately enlarged . Right Ventricle Normal right ventricle structure and function. Right Atrium Normal right atrium. Aortic Valve Normal AoV structure. Mitral Valve Normal MV structure. Tricuspid Valve TV structure is normal. Unable to estimate peak systolic PA pressure; inadequate TR velocity signal. Pulmonic Valve PV is not well visualized. Aorta Aortic root size (SInus of Valsalva diameter) is normal . Pericardium A small to moderate circumferential pericardial effusion is present; largest posteriorly at 10mm. Pericardial tamponade physiology is not evident . IVC/SVC/PA/PV/Pleural The estimated RA pressure by IVC dynamics 11-15mmHg . Chambers/Structures Left Atrium LA Dimension: 4.32 cm LA Area: 29.85 cm^2 LA Volume: 105.15 ml LA Vol. Index: 44 ml/m^2 Left Ventricle LVIDd: 5.22 cm LV Septum Diastolic: 1.35 cm LV PW Diastolic: 1.5 cm LVEDV Gustafson's:154.4 ml LVESV Gustafson's:63.77 ml LVEF Gustafson's: 58.7 % LVEDVI: 65 ml/m^2 LVESVI: 27 ml/m^2 Aorta Ao Root S of Marielos.: 3.15 cm Doppler/Quantitative Measurements Mitral Valve MV Peak E-Wave: 1.36 m/s MV Peak A-Wave: 0.81 m/s E/A Ratio: 1.67 Peak Gradient: 7.39 mmHg Deceleration Time: 218.1 msec MV Michel. Peak: Tissue Doppler E' Septal Velocity: 1.06 m/s E' Lateral Velocity: 1.06 m/s Performing Organization Address City/State/Zipcode Phone Number [facility] ABORH, manual (04/28/2018 12:53 PM PHARMACY MESSENGER) ABO Grouping A [facility] Rh Factor POS [facility] Specimen Blood Performing Organization Address City/[facility]/Zipcode Phone Number [facility] [address] [place] [address] [phone] Type and screen, automated (04/28/2018 11:08 AM PHARMACY MESSENGER) ABO/RH AUTOMATED (BEAKER) A POSITIVE [facility] Ab Scrn NEGATIVE [facility] Specimen Blood Performing Organization Address [facility]/Zipcode Phone Number [facility] [address] [place] [phone] Vitamin B12 and Folate (04/27/2018 5:30 AM PHARMACY MESSENGER) Vitamin B12 441 213 - 816 pg/mL [facility] Folate 7.7 >=7.0 ng/mL [facility] Specimen Blood - Arm, Left Performing Organization Address City/[facility] Phone Number [facility] [address] [place] [address] [phone] CENTER EEG AWAKE AND DROWSY (04/26/2018 10:55 AM PHARMACY MESSENGER) Narrative Performed At [facility] EEG REPORT GE RIS DATE OF TEST: 04/26/2018 ACC: [id number] Start time:10:25 Stop time:10:55 ICD-10: R55 CPT Code: 36950 HISTORY:43 yo female with PMHx of PE, CHF, HTN, DMII, JOSEFA, morbid obesity, and possible seizure disorder/syncope admitted with syncopal episode; found to have SHWETHA, rhabdomyolysis, and ketosis. MEDICATIONS WHICH COULD AFFECT EEG: None TECHNICAL SUMMARY: This is a digital video EEG recorded with 27 input channels reviewed with bipolar and referential montages using the modified combinatorial system nomenclature. FT9, FT10 were not applied. DESCRIPTION OF RECORD: During the maximally alert state there was an 8-9 Hz posterior dominant rhythm and anterior to posterior voltage/frequency gradient. The background was primarily composed of alpha frequencies.During drowsiness there was increased theta activity and rhythmical slowing. Stage II sleep was not observed. EVENTS: None HV: Hyperventilation was not performed. PHOTIC STIMULATION:Photic stimulation with various frequencies of flickering lights did not elicit any abnormalities. ELECTROCARDIOGRAM EVENTS: None IMPRESSION: Normal Awake and Drowsy EEG CLINICAL CORRELATION:The lack of epileptiform activity does not necessarily preclude a diagnosis of epilepsy; clinical correlation is recommended. Rita Cm MD Neurophysiology/Epilepsy Fellow Ruddy Burdick M.D., MECCA, EDMUND, STEPHY Professor of Neurology, [facility] Director, [facility] Head, Mike Gar[facility] Neurophysiology Lab Procedure Note Interface, External Ris In - 04/26/2018 2:21 PM PHARMACY MESSENGER [facility] EEG REPORT DATE OF TEST: 04/26/2018 ACC: [id number] Start time: 10:25 Stop time: 10:55 ICD-10: R55 CPT Code: 12092 HISTORY: 43 yo female with PMHx of PE, CHF, HTN, DMII, JOSEFA, morbid obesity, and possible seizure disorder/syncope admitted with syncopal episode; found to have SHWETHA, rhabdomyolysis, and ketosis. MEDICATIONS WHICH COULD AFFECT EEG: None TECHNICAL SUMMARY: This is a digital video EEG recorded with 27 input channels reviewed with bipolar and referential montages using the modified combinatorial system nomenclature. FT9, FT10 were not applied. DESCRIPTION OF RECORD: During the maximally alert state there was an 8-9 Hz posterior dominant rhythm and anterior to posterior voltage/frequency gradient. The background was primarily composed of alpha frequencies. During drowsiness there was increased theta activity and rhythmical slowing. Stage II sleep was not observed. EVENTS: None HV: Hyperventilation was not performed. PHOTIC STIMULATION: Photic stimulation with various frequencies of flickering lights did not elicit any abnormalities. ELECTROCARDIOGRAM EVENTS: None IMPRESSION: Normal Awake and Drowsy EEG CLINICAL CORRELATION: The lack of epileptiform activity does not necessarily preclude a diagnosis of epilepsy; clinical correlation is recommended. Rita Cm MD Neurophysiology/Epilepsy Fellow Ruddy Burdick M.D., MECCA, EDMUND, STEPHY Professor of Neurology, [employer] Director, [facility] Head, Mike Garza Neurophysiology Lab Performing Organization Address City/[facility] Phone Number GE RIS Creatine Kinase (CK) (04/26/2018 6:20 AM PHARMACY MESSENGER)Only the most recent of4 resultswithin the time period is included. Total CK 153 29 - 200 U/L [facility] Specimen Blood - Arm, Left Performing Organization Address [facility] Phone Number [address] [address] [phone] CENTER Iron, TIBC, % sat. (without ferritin) (04/25/2018 7:15 AM PHARMACY MESSENGER) Iron 53.0 40.0 - 160.0 ug/dL [facility] TIBC 113 (L) 250 - 450 ug/dL [facility] Iron % Saturation 47 20 - 55 % [facility] Specimen Blood - Arm, Right Performing Organization Address [facility] Phone Number [address] [address] [place] Vitamin D, 25-Hydroxy (04/25/2018 7:15 AM PHARMACY MESSENGER) Vitamin D 25-Hydroxy 5.3 (L) 6.6 - 49.9 ng/mL [facility] Specimen Blood - Arm, Right Narrative Performed At Effective 01/14/2017: Reference Range Change [facility] New: 6.6-49.9 ng/mL Previous: 13.0-47.8 ng/mL Recommended Vitamin D Target Range: 30.0-40.0 ng/mL Performing Organization Address [facility] Phone Number [address] [address] CENTER Phosphorus (04/25/2018 7:15 AM PHARMACY MESSENGER) Phosphorus 5.2 (H) 2.3 - 4.7 mg/dL [facility] Specimen Blood - Arm, Right Performing Organization Address City/[facility]/Zipcode Phone Number [facility] [address] [place] [address] [phone] [place] PTH, intact (04/25/2018 7:15 AM PHARMACY MESSENGER) PTH 15.4 8.5 - 72.5 pg/mL [facility] Specimen Blood - Arm, Right Performing Organization Address [facility]/Zipcode Phone Number [facility] [address] [place], [place] [phone] [place] Urinalysis w/Microscopic + Reflex to Culture (04/24/2018 11:20 PM PHARMACY MESSENGER) Color, UA Yellow [facility] Clarity, UA Hazy [facility] Specific [place], UA 1.024 1.001 - 1.035 [facility] pH, UA 6.0 5.0 - 8.0 [facility] Protein, UA 600 mg/dL (A) Negative [facility] Glucose, UA >1000 mg/dL (A) Negative [facility] Ketones, UA Negative Negative [facility] Bilirubin, UA Negative Negative [facility] Blood, UA Moderate (A) Negative [facility] Nitrite, UA Negative Negative [facility] Leukocytes, UA Negative Negative [facility] Urobilinogen, UA 0.2 0.2 - 1.0 mg/dL [facility] RBC, UA 5 /HPF [facility] WBC, UA 5 /HPF [facility] Bacteria, UA Occasional [facility] Mucus Rare [facility] Squam Epithel, UA 16 /HPF [facility] Hyaline Casts, UA 21 /LPF [facility] Granular Casts, UA 30 /LPF [facility] Amorphous Crystals Many [facility] Specimen Source [facility] Specimen Urine - Urine, Voided Performing Organization Address City/State/Zipcode Phone Number [address] [address] [place] Sodium, random urine (04/24/2018 11:20 PM PHARMACY MESSENGER)Only the most recent of2 resultswithin the time period is included. Sodium Urine <20 meq/L [facility] Specimen Urine - Urine, Voided Narrative Performed At Reference Range: No Normals [facility] Performing Organization Address [facility] Phone Number [address] [address] [phone] [place] Troponin I (04/24/2018 4:58 PM PHARMACY MESSENGER)Only the most recent of2 resultswithin the time period is included. Troponin I 0.07 (H) 0.00 - 0.03 ng/mL [facility] Specimen Blood - Arm, Right Narrative Performed At Troponin I (TnI) levels must be interpreted [facility] in the context of the presenting symptoms and the clinical findings. Elevated TnI levels indicate myocardial damage, but are not specific for ischemic heart disease. Elevated TnI levels are seen in patients with other cardiac conditions (including myocarditis and congestive heart failure), and slight TnI elevations occur in patients with other conditions, including sepsis, renal failure, acidosis, acute neurological disease, and persistent tachyarrhythmia. Performing Organization Address City/State/Zipcode Phone Number [address] [address] [phone] CENTER Hemoglobin A1c (04/24/2018 4:58 PM PHARMACY MESSENGER) Hemoglobin A1C 7.9 (H) 4.3 - 6.1 % [facility] Specimen Blood - Arm, Right Performing Organization Address City/State/Zipcode Phone Number [facility] [address] [place] [address] CENTER US renal complete (04/24/2018 4:07 PM PHARMACY MESSENGER) Narrative Performed At FINAL REPORT Genometry RENAL ULTRASOUND HISTORY: Acute kidney injury TECHNIQUE: Real-time ultrasound of the kidneys was performed. FINDINGS: The kidneys are normal in size, contour, and echogenicity. The right kidney measures 12.0 cm in length and the left kidney measures 12.5 cm in length. Renal cortical thickness measures 1.0 cm on the right and 1.2 cm on the left. No renal mass lesion. No hydronephrosis or calculi are seen. Limited Doppler evaluation of the bilateral main renal arteries and veins demonstrated patency. The bladder is decompressed, which may account for mild prominence of the bladder wall. Bladder wall thickening cannot be excluded. IMPRESSION: No ultrasound abnormalities are visualized in the kidneys. Signed: Niru Hare MD Report Verified Date/Time:04/24/2018 16:18:43 Reading Location: [address] Transitional Reading Room Procedure Note Interface, External Ris In - 04/24/2018 4:20 PM PHARMACY MESSENGER FINAL REPORT RENAL ULTRASOUND HISTORY: Acute kidney injury TECHNIQUE: Real-time ultrasound of the kidneys was performed. FINDINGS: The kidneys are normal in size, contour, and echogenicity. The right kidney measures 12.0 cm in length and the left kidney measures 12.5 cm in length. Renal cortical thickness measures 1.0 cm on the right and 1.2 cm on the left. No renal mass lesion. No hydronephrosis or calculi are seen. Limited Doppler evaluation of the bilateral main renal arteries and veins demonstrated patency. The bladder is decompressed, which may account for mild prominence of the bladder wall. Bladder wall thickening cannot be excluded. IMPRESSION: No ultrasound abnormalities are visualized in the kidneys. Signed: Niru Hare MD Report Verified Date/Time: 04/24/2018 16:18:43 Reading Location: [address] Transitional Reading Room Performing Organization Address City/State/Zipcode Phone Number [facility] ECHOCARDIOGRAM REPORT - SCAN (04/24/2018 1:50 PM PHARMACY MESSENGER) Narrative Performed At Lactic acid, venous, whole blood (04/24/2018 11:04 AM PHARMACY MESSENGER) Lactate, Venous 1.3Comment: Specimen 0.5 - 2.2 mmol/L [facility] slightly hemolyzed [facility] Specimen Blood - Arm, Right Performing Organization Address City/State/Zipcode Phone Number [facility] [address] [place] [address] CENTER 2D Echo W/Doppler(CW/PW/Color) (04/24/2018 9:25 AM PHARMACY MESSENGER) Ejection Fraction [facility] Narrative Performed At Transthoracic Echocardiography Report (TTE) [facility] Demographics Patient Name SHERITA GAGE of Study04/24/2018 [id number] Gender Female Visit Number [id number] Race Unknown [id number] Room [id number] Number Date of Birth1975 Referring PhysicianSwin cMmillan MD Age43 year(s) SonographerDiluis STOLL Interpreting Sai Saldana MD Physician Fellow Jimbo Gonzalez MD Procedure Type of Study TTE procedure:2DECHO W DOPPLER(CW/PW/COLOR) (STAT) Indications:Unexplained Pre-syncope/Syncope. Clinical History Diabetes Hypertension Stroke/TIA Asthma HGB 8.3 HCT 25.1 % Height: 66 inches Weight: 134.72 kg (297 lbs) BSA: 2.37 m^2 BMI: 47.94 kg/m^2 HR: 111 bpm BP: 216/101 mmHg Summary 1. The left ventricle is chamber size (by vol index) is normal. No evidence of LV hypertrophy. All of the LV segments are hyperkinetic. LVEF by Gustafson's method of disk assessment is increased (>60%). Degree of diastolic dysfunction (LAP assessment) is inconclusive due to tachycardia . LA size is normal (16-34 ml/m2). 2. Normal right ventricular systolic function. RV chamber size is normal. Estimated peak systolic PA pressure is cannot be determined due to inadequate TR velocity signal. 3. No significant valvular abnormalities. 4. A [id number] pericardial effusion is present . Greatest pericardial end-diastolic size is approx. 1.1 cm. Previous Study No prior exam available for comparison. Signature Findings Rhythm/BPRapid rhythm during the exam. Left Ventricle The left ventricle is chamber size (by vol index) is normal (female - LVED vol - 29-61ml/m2). No evidence of LV hypertrophy. Al l of the LV segments are hyperkinetic . Gl obal LV systolic function hyperdynamic . LV EF by Gustafson's method of disk assessment is in creased (>60%) . De gree of diastolic dysfunction (LAP assessment) is in conclusive due to tachycardia . Left AtriumLA size is normal (16-34 ml/m2) . Right VentricleNormal right ventricular systolic function. RV chamber size is normal . Right Atrium RA size is probably normal based on available vi ews. Atrial SeptumThe interatrial septum is adequately visualized. No rmal interatrial septum by available views. Aortic Valve Normal AoV structure and function. Mitral Valve Normal MV structure and function. Tricuspid ValveTV structure is normal. Es timated peak systolic PA pressure is cannot be de termined due to inadequate TR velocity signal . Pulmonic Valve Normal PV structure and function by limited views an d Doppler. AortaAortic root size (SInus of Valsalva diameter) is no rmal . Pr oximal ascending aorta size is normal . PericardiumA frpas-zy-ticmsvcb pericardial effusion is present . Gr eatest pericardial end-diastolic size is approx. 1. 1 cm. Th e pericardial effusion appears circumferential . Re spiratory variation across the MV inflow is 32% Re spiratory variation across the TV inflow is 46% IVC/SVC/PA/PV/PleuralThe inferior vena cava size is normal . Th e estimated RA pressure by IVC dynamics 0-5mmHg . Chambers/Structures Left Atrium LA Volume: 75.78 ml LA Vol. Index: 32 ml/m^2 Left Ventricle LVIDd: 5.14 cm LVIDs: 3.13 cm LV Septum Diastolic: 1.4 cm LV PW Diastolic: 1.33 cm LV FS: 39.1 % LVEDV Gustafson's:127.81 ml LVESV Gustafson's:41.46 ml LVEDVI: 54 ml/m^2 LVEF Gustafson's: 67.6 % LVESVI: 17 ml/m^2 Aorta Ao Root S of Marielos.: 3.35 cmAscending Aorta: 2.98 cm Vena Cava IVC Inspirium: 1.84 cm Doppler/Quantitative Measurements Aortic Valve Peak Velocity: 1.58 m/s Mean Velocity: 1.08 m/s Peak Gradient: 10.01 mmHg Mean Gradient: 5.35 mmHg AV VTI: 25.14 cm AV DVI: 0.89 LVOT Peak Velocity: 1.27 m/s Peak Gradient: 6.46 mmHg Mean Velocity: 0.87 m/s Mean Gradient: 3.48 mmHg LVOT VTI: 22.48 cm Tricuspid Valve TV Peak E-Wave: 0.87 m/s TV Peak Gradient: 3 mmHg Procedure Note Interface, External Ris In - 04/24/2018 1:31 PM PHARMACY MESSENGER Transthoracic Echocardiography Report (TTE) Demographics Patient Name SHERITA GAGE Date of Study 04/24/2018 Gender Female Visit Number [id number] Race Unknown Room Number 922 Number Date of 1975 Referring Physician No Mcmillan MD Age 43 year(s) Check Out Clerk Kyaw Montalvo [facility] Interpreting Sai Saldana MD Physician Fellow Jimbo Gonzalez MD Procedure Type of Study TTE procedure:2DECHO W DOPPLER(CW/PW/COLOR) (STAT) Indications:Unexplained Pre-syncope/Syncope. Clinical History Diabetes Hypertension Stroke/TIA Asthma HGB 8.3 HCT 25.1 % Height: 66 inches Weight: 134.72 kg (297 lbs) BSA: 2.37 m^2 BMI: 47.94 kg/m^2 HR: 111 bpm BP: 216/101 mmHg Summary 1. The left ventricle is chamber size (by vol index) is normal. No evidence of LV hypertrophy. All of the LV segments are hyperkinetic. LVEF by Gustafson's method of disk assessment is increased (>60%). Degree of diastolic dysfunction (LAP assessment) is inconclusive due to tachycardia . LA size is normal (16-34 ml/m2). 2. Normal right ventricular systolic function. RV chamber size is normal. Estimated peak systolic PA pressure is cannot be determined due to inadequate TR velocity signal. 3. No significant valvular abnormalities. 4. A dxbjh-vi-koalullk pericardial effusion is present . Greatest pericardial end-diastolic size is approx. 1.1 cm. Previous Study No prior exam available for comparison. Signature Findings Rhythm/BP Rapid rhythm during the exam. Left Ventricle The left ventricle is chamber size (by vol index) is normal (female - LVED vol - 29-61ml/m2). No evidence of LV hypertrophy. All of the LV segments are hyperkinetic . Global LV systolic function hyperdynamic . LVEF by Gustafson's method of disk assessment is increased (>60%) . Degree of diastolic dysfunction (LAP assessment) is inconclusive due to tachycardia . Left Atrium LA size is normal (16-34 ml/m2) . Right Ventricle Normal right ventricular systolic function. RV chamber size is normal . Right Atrium RA size is probably normal based on available views. Atrial Septum The interatrial septum is adequately visualized. Normal interatrial septum by available views. Aortic Valve Normal AoV structure and function. Mitral Valve Normal MV structure and function. Tricuspid Valve TV structure is normal. Estimated peak systolic PA pressure is cannot be determined due to inadequate TR velocity signal . Pulmonic Valve Normal PV structure and function by limited views and Doppler. Aorta Aortic root size (SInus of Valsalva diameter) is normal . Proximal ascending aorta size is normal . Pericardium A zaszf-xz-mnavxcvw pericardial effusion is present . Greatest pericardial end-diastolic size is approx. 1.1 cm. The pericardial effusion appears circumferential . Respiratory variation across the MV inflow is 32% Respiratory variation across the TV inflow is 46% IVC/SVC/PA/PV/Pleural The inferior vena cava size is normal . The estimated RA pressure by IVC dynamics 0-5mmHg . Chambers/Structures Left Atrium LA Volume: 75.78 ml LA Vol. Index: 32 ml/m^2 Left Ventricle LVIDd: 5.14 cm LVIDs: 3.13 cm LV Septum Diastolic: 1.4 cm LV PW Diastolic: 1.33 cm LV FS: 39.1 % LVEDV Gustafson's:127.81 ml LVESV Gustafson's:41.46 ml LVEDVI: 54 ml/m^2 LVEF Gustafson's: 67.6 % LVESVI: 17 ml/m^2 Aorta Ao Root S of Marielos.: 3.35 cm Ascending Aorta: 2.98 cm Vena Cava IVC Inspirium: 1.84 cm Doppler/Quantitative Measurements Aortic Valve Peak Velocity: 1.58 m/s Mean Velocity: 1.08 m/s Peak Gradient: 10.01 mmHg Mean Gradient: 5.35 mmHg AV VTI: 25.14 cm AV DVI: 0.89 LVOT Peak Velocity: 1.27 m/s Peak Gradient: 6.46 mmHg Mean Velocity: 0.87 m/s Mean Gradient: 3.48 mmHg LVOT VTI: 22.48 cm Tricuspid Valve TV Peak E-Wave: 0.87 m/s TV Peak Gradient: 3 mmHg Performing Organization Address City/State/Zipcode Phone Number [facility] ECG 12 lead (04/24/2018 6:10 AM PHARMACY MESSENGER)Only the most recent of2 resultswithin the time period is included. Narrative Performed At Ventricular Rate 110 BPM GE MUSE Atrial Rate 110 BPM P-R Interval 160 ms QRS Duration 88 ms Q-T Interval 296 ms QTC Calculation(Bazett) 400 ms P Morrison 52 degrees R Morrison -13 degrees T Morrison -7 degrees Sinus tachycardia Low voltage QRS Nonspecific T wave abnormality Abnormal ECG When compared with ECG of 24-APR-2018 06:06, Previous ECG has undetermined rhythm, needs review Confirmed by MD GRIJALVA RUPA ([id number]) on 04/24/2018 2:29:58 PM Procedure Note Interface, External Ris In - 04/24/2018 2:30 PM PHARMACY MESSENGER Ventricular Rate 110 BPM Atrial Rate 110 BPM P-R Interval 160 ms QRS Duration 88 ms Q-T Interval 296 ms QTC Calculation(Bazett) 400 ms P Morrison 52 degrees R Morrison -13 degrees T Morrison -7 degrees Sinus tachycardia Low voltage QRS Nonspecific T wave abnormality Abnormal ECG When compared with ECG of 24-APR-2018 06:06, Previous ECG has undetermined rhythm, needs review Confirmed by MD GRIJALVA RUPA ([id number]) on 04/24/2018 2:29:58 PM Performing Organization Address City/State/Zipcode Phone Number [facility] Rapid drug screen, urine (04/24/2018 2:27 AM PHARMACY MESSENGER) Barbiturate Screen Negative Negative [facility] Benzodiazepine Screen Negative Negative [facility] Cocaine (Metab.) Screen Negative Negative [facility] Methadone Screen Negative Negative [facility] Opiate Screen Negative Negative [facility] Cannabinoid Screen Negative Negative [facility] Amph/Methamph Screen Negative Negative [facility] Phencyclidine Screen Negative Negative [facility] Oxycodone Screen Negative Negative [facility] Specimen Urine - Urine, Voided Narrative Performed At [facility] CONC. Cocaine 300 ng/mL Rtgzwywglrk39 ng/mL Taddieweodwuxj250 ng/mL Barbiturate 200 ng/mL Hatmafelwnmpd76 ng/mL Kohlpe887 ng/mL Methadone 300 ng/mL Amphetamine/ 1000 ng/mL Methamphetamine Oxycodone 300 ng/mL This assay provides an unconfirmed qualitative test result for the clinical management of patients in emergency situations. Chain of custody not maintained. Some iiae-fku-sjsctiv medications, as well as adulterants, may cause inaccurate results. Clinical correlation should be applied. A more comprehensive drug screen or confirmation of a detected drug may be performed upon request. Performing Organization Address City/[facility]/Zipcode Phone Number [address] [id number] [phone] [place] Screen, urine (04/24/2018 2:27 AM PHARMACY MESSENGER) Preg Test, Ur Negative [facility] Specimen Urine - Urine, Voided Performing Organization Address [facility] Cent[facility]ode Phone Number [address] [address] [phone] [place] Urinalysis, Routine (04/24/2018 2:27 AM PHARMACY MESSENGER) Color, UA Yellow [facility] Clarity, UA Hazy [facility] Specific [place], UA 1.024 1.001 - 1.035 [facility] pH, UA 6.5 5.0 - 8.0 [facility] Protein, UA >600 mg/dL (A) Negative [facility] Glucose, UA >1000 mg/dL (A) Negative [facility] Ketones, UA 20 mg/dL (A) Negative [facility] Bilirubin, UA Negative Negative [facility] Blood, UA Moderate (A) Negative [facility] Nitrite, UA Negative Negative [facility] Leukocytes, UA Negative Negative [facility] Urobilinogen, UA 0.2 0.2 - 1.0 mg/dL [facility] RBC, UA 2 /HPF [facility] WBC, UA 8 /HPF [facility] Bacteria, UA Many [facility] Mucus Rare [facility] Squam Epithel, UA 6 /HPF [facility] Hyaline Casts, UA 15 /LPF [facility] Granular Casts, UA 4 /LPF [facility] Specimen Source Urine, Voided [facility] Specimen Urine - Urine, Voided Performing Organization Address [facility]/Zipcode Phone Number [address] [address] [place] TSH/T4 if indicated (04/24/2018 12:51 AM PHARMACY MESSENGER) TSH 1.32 0.35 - 4.94 uIU/mL [facility] Specimen Blood - Arm, Right Performing Organization Address [facility] Cent[facility]ode Phone Number [address] [address] [place] Comprehensive metabolic panel (04/24/2018 12:51 AM PHARMACY MESSENGER) Protein, Total 5.4 (L) 6.0 - 8.3 gm/dL [facility] Albumin 2.1 (L) 3.5 - 5.0 g/dL [facility] Alkaline Phosphatase 111 40 - 150 U/L [facility] Total Bilirubin 0.5 0.2 - 1.2 mg/dL [facility] Sodium 139 136 - 145 meq/L [facility] Potassium 2.9 (L) 3.5 - 5.1 meq/L [facility] Chloride 108 (H) 98 - 107 meq/L [facility] CO2 22 22 - 29 meq/L [facility] BUN 29 (H) 7 - 21 mg/dL [facility] Creatinine 3.07 (H) 0.57 - 1.25 mg/dL [facility] Glucose 300 (H) 70 - 105 mg/dL [facility] Calcium 10.7 (H) 8.4 - 10.2 mg/dL [facility] AST 89 (H) 5 - 34 U/L [facility] ALT 62 (H) 6 - 55 U/L [facility] EGFR 16Comment: ESTIMATED GFR mL/min/1.73 sq m [facility] IS NOT ACCURATE [facility] CREATININE CLEARANCE IN PREDICTING GLOMERULAR FILTRATION RATE. ESTIMATED GFR IS NOT APPLICABLE FOR DIALYSIS PATIENTS. Specimen Blood - Arm, Right Performing Organization Address City/[facility]/Zipcode Phone Number [facility] [address] [place] [address] [phone] CENTER XR chest 1 view portable / bedside (04/23/2018 11:28 PM PHARMACY MESSENGER) Narrative Performed At FINAL REPORT [facility] Chest one view. Clinical history: Syncope, rhabdomyolysis Comparison: None. Technique: A single frontal view of the chest was obtained. Findings: The heart is normal in size. The aorta is uncoiled. There is no focal pulmonary consolidation, pleural effusion or pneumothorax. There is no pulmonary edema. The bony thorax is unremarkable. Impression: No focal pulmonary consolidation. Signed: Shereen Sawant MD Report Verified Date/Time:04/23/2018 23:44:17 Reading Location: [address] Reading Room Procedure Note Interface, External Ris In - 04/23/2018 11:46 PM PHARMACY MESSENGER FINAL REPORT Chest one view. Clinical history: Syncope, rhabdomyolysis Comparison: None. Technique: A single frontal view of the chest was obtained. Findings: The heart is normal in size. The aorta is uncoiled. There is no focal pulmonary consolidation, pleural effusion or pneumothorax. There is no pulmonary edema. The bony thorax is unremarkable. Impression: No focal pulmonary consolidation. Signed: Shereen Sawant MD Report Verified Date/Time: 04/23/2018 23:44:17 Reading Location: [address] Reading Room Performing Organization Address City/[facility] Centercode Phone Number GE RIS after 05/30/2017 Insurance Payer Benefit Plan / Group Subscriber ID Type Phone Address MEDICARE MEDICARE A B xxxxxxxxxxx Medicare Advance Directives For more information, please contact:[address] [phone] Code Status Date Activated Date Inactivated Comments Full Code 04/23/2018 10:36 PM This code status was determined by: Patient
--- OUTSIDE RECORDS SUMMARY | 2018-05-31 16:44 | XMS REPORT ---
:1975 Author Organization [facility] Address [address] [place] [address] Care Team Providers Name Role Phone THOMAS NINO Unavailable Unavailable Payers Payer Name Policy Type Policy Number Effective Date Expiration Date Problems This patient has no known problems. Allergies, Adverse Reactions, Alerts Allergy Allergy Status Severity Reaction(s) Onset Inactive Treating Comments Name Type Date Date Clinician shellfish DA Active U 2017-11 00:00:0 0 Medications This patient has no known medications. Results Test Description Test Time Test Comments Text Results Atomic Results Result Comments POCT-GLUCOSE METER 2018-05-05 14:54:00 Test Item Value Reference Range Comments POC-GLUCOSE METER (BEAKER) (test 117 mg/dL 70-110 TESTED AT [facility] [address] ckrj=[address]) [facility] [address] [id number] 12:36:00 Test Item Value Reference Range Comments FERRITIN (BEAKER) (test bjdy=669) 568 ng/mL 5-275 BASIC METABOLIC [id number] 12:26:00 Test Item Value Reference Range Comments SODIUM (BEAKER) (test 143 meq/L 136-145 uqas=567) POTASSIUM (BEAKER) (test 3.9 meq/L 3.5-5.1 hvbs=828) CHLORIDE (BEAKER) (test 112 meq/L 98-107 myur=629) CO2 (BEAKER) (test 24 meq/L 22-29 ejrt=893) BLOOD UREA NITROGEN 47 mg/dL 7-21 (BEAKER) (test vfqz=251) CREATININE (BEAKER) (test 3.97 mg/dL 0.57-1.25 rhyp=682) GLUCOSE RANDOM (BEAKER) 108 mg/dL 70-105 (test lovg=038) CALCIUM (BEAKER) (test 8.1 mg/dL 8.4-10.2 ktcm=765) EGFR (BEAKER) (test 12 mL/min/1.73 sq m ESTIMATED GFR IS NOT itae=9418) ACCURATE CREATININE CLEARANCE IN PREDICTING GLOMERULAR FILTRATION RATE. ESTIMATED GFR IS NOT APPLICABLE FOR DIALYSIS PATIENTS. [id number] 12:22:00 Test Item Value Reference Range Comments MAGNESIUM (BEAKER) (test fiko=193) 1.6 mg/dL 1.6-2.6 CBC W/PLT COUNT & AUTO [id number] 12:02:00 Test Item Value Reference Range Comments WHITE BLOOD CELL COUNT (BEAKER) (test tzmk=167) 8.0 K/ L 3.5-10.5 RED BLOOD CELL COUNT (BEAKER) (test weyy=928) 2.65 M/ L 3.93-5.22 HEMOGLOBIN (BEAKER) (test wzgr=454) 7.9 GM/DL 11.2-15.7 HEMATOCRIT (BEAKER) (test chck=104) 25.1 % 34.1-44.9 MEAN CORPUSCULAR VOLUME (BEAKER) (test iopt=715) 94.7 fL 79.4-94.8 MEAN CORPUSCULAR HEMOGLOBIN (BEAKER) (test 29.8 pg 25.6-32.2 ssat=610) MEAN CORPUSCULAR HEMOGLOBIN CONC (BEAKER) (test 31.5 GM/DL 32.2-35.5 pjbn=452) RED CELL DISTRIBUTION WIDTH (BEAKER) (test 14.0 % 11.7-14.4 czcb=954) PLATELET COUNT (BEAKER) (test kxlr=344) 258 K/CU MM 150-450 MEAN PLATELET VOLUME (BEAKER) (test azpf=293) 12.1 fL 9.4-12.3 NUCLEATED RED BLOOD CELLS (BEAKER) (test 0 /100 WBC 0-0 xlpg=419) NEUTROPHILS RELATIVE PERCENT (BEAKER) (test 66 % ozqg=321) LYMPHOCYTES RELATIVE PERCENT (BEAKER) (test 20 % otkt=649) MONOCYTES RELATIVE PERCENT (BEAKER) (test 10 % itcl=751) EOSINOPHILS RELATIVE PERCENT (BEAKER) (test 4 % vkfz=582) BASOPHILS RELATIVE PERCENT (BEAKER) (test 1 % vjya=331) NEUTROPHILS ABSOLUTE COUNT (BEAKER) (test 5.24 K/ L 1.56-6.13 mnux=509) LYMPHOCYTES ABSOLUTE COUNT (BEAKER) (test 1.61 K/ L 1.18-3.74 xpmi=299) MONOCYTES ABSOLUTE COUNT (BEAKER) (test 0.78 K/ L 0.24-0.36 kzeh=583) EOSINOPHILS ABSOLUTE COUNT (BEAKER) (test 0.28 K/ L 0.04-0.36 lbjz=067) BASOPHILS ABSOLUTE COUNT (BEAKER) (test 0.04 K/ L 0.01-0.08 gjkf=913) IMMATURE GRANULOCYTES-RELATIVE PERCENT (BEAKER) 0 % 0-1 (test kfax=3966) POCT-GLUCOSE [id number] 11:10:00 Test Item Value Reference Range Comments POC-GLUCOSE METER (BEAKER) 114 mg/dL 70-110 TESTED AT [address] (test scem=2849) [facility] [address] POCT-GLUCOSE [id number] 08:09:00 Test Item Value Reference Range Comments POC-GLUCOSE METER (BEAKER) 120 mg/dL 70-110 TESTED AT [address] (test fvay=9181) [facility] [address] PROTEIN, RANDOM [id number] 00:08:00 Test Item Value Reference Range Comments PROTEIN, URINE (BEAKER) (test yftr=2319) 372 mg/dL 0-14 CREATININE, RANDOM [id number] 23:14:00 Test Item Value Reference Range Comments CREATININE URINE (BEAKER) (test wujg=350) 26.6 mg/dL Reference Range: No NormalsUREA NITROGEN, RANDOM [id number] 23:14:00 Test Item Value Reference Range Comments UREA NITROGEN URINE (BEAKER) (test bzai=993) 163 mg/dL Reference Range: No NormalsPOCT-GLUCOSE [id number] 20:49:00 Test Item Value Reference Range Comments POC-GLUCOSE METER (BEAKER) 144 mg/dL 70-110 TESTED AT [address] (test wqav=0354) [facility] [address] POCT-GLUCOSE [id number] 16:59:00 Test Item Value Reference Range Comments POC-GLUCOSE METER (BEAKER) 125 mg/dL 70-110 TESTED AT [place] [id number] [facility] (test cmce=1438) [facility] [address] POCT-GLUCOSE [id number] 12:30:00 Test Item Value Reference Range Comments POC-GLUCOSE METER (BEAKER) 91 mg/dL 70-110 TESTED AT [address] (test xosi=8387) [facility] [address] POCT-GLUCOSE [id number] 07:32:00 Test Item Value Reference Range Comments POC-GLUCOSE METER (BEAKER) 147 mg/dL 70-110 TESTED AT [address] (test wxxp=4766) [facility] [address] BASIC METABOLIC [id number] 07:06:00 Test Item Value Reference Range Comments SODIUM (BEAKER) (test 142 meq/L 136-145 stmr=944) POTASSIUM (BEAKER) (test 4.3 meq/L 3.5-5.1 cjlj=437) CHLORIDE (BEAKER) (test 112 meq/L 98-107 hnlk=071) CO2 (BEAKER) (test 22 meq/L 22-29 ubjd=752) BLOOD UREA NITROGEN 45 mg/dL 7-21 (BEAKER) (test fzgq=526) CREATININE (BEAKER) (test 3.94 mg/dL 0.57-1.25 vhfx=771) GLUCOSE RANDOM (BEAKER) 193 mg/dL 70-105 (test pgxk=249) CALCIUM (BEAKER) (test 8.2 mg/dL 8.4-10.2 lltx=954) EGFR (BEAKER) (test 12 mL/min/1.73 sq m ESTIMATED GFR IS NOT cnjj=7101) ACCURATE CREATININE CLEARANCE IN PREDICTING GLOMERULAR FILTRATION RATE. ESTIMATED GFR IS NOT APPLICABLE FOR DIALYSIS PATIENTS. [id number] 06:45:00 Test Item Value Reference Range Comments MAGNESIUM (BEAKER) (test hnqv=043) 1.8 mg/dL 1.6-2.6 CBC W/PLT COUNT & AUTO [id number] 05:49:00 Test Item Value Reference Range Comments WHITE BLOOD CELL COUNT (BEAKER) (test fllf=838) 9.1 K/ L 3.5-10.5 RED BLOOD CELL COUNT (BEAKER) (test mshi=487) 2.53 M/ L 3.93-5.22 HEMOGLOBIN (BEAKER) (test dzug=466) 7.5 GM/DL 11.2-15.7 HEMATOCRIT (BEAKER) (test urlc=208) 24.1 % 34.1-44.9 MEAN CORPUSCULAR VOLUME (BEAKER) (test bwro=103) 95.3 fL 79.4-94.8 MEAN CORPUSCULAR HEMOGLOBIN (BEAKER) (test 29.6 pg 25.6-32.2 jysx=554) MEAN CORPUSCULAR HEMOGLOBIN CONC (BEAKER) (test 31.1 GM/DL 32.2-35.5 qyto=265) RED CELL DISTRIBUTION WIDTH (BEAKER) (test 14.3 % 11.7-14.4 scnt=326) PLATELET COUNT (BEAKER) (test gsma=931) 247 K/CU MM 150-450 MEAN PLATELET VOLUME (BEAKER) (test rtmb=583) 12.1 fL 9.4-12.3 NUCLEATED RED BLOOD CELLS (BEAKER) (test 0 /100 WBC 0-0 eiwq=103) NEUTROPHILS RELATIVE PERCENT (BEAKER) (test 69 % djic=657) LYMPHOCYTES RELATIVE PERCENT (BEAKER) (test 18 % hemq=776) MONOCYTES RELATIVE PERCENT (BEAKER) (test 11 % vdaz=210) EOSINOPHILS RELATIVE PERCENT (BEAKER) (test 2 % brye=244) BASOPHILS RELATIVE PERCENT (BEAKER) (test 0 % jwgo=938) NEUTROPHILS ABSOLUTE COUNT (BEAKER) (test 6.20 K/ L 1.56-6.13 aypa=291) LYMPHOCYTES ABSOLUTE COUNT (BEAKER) (test 1.62 K/ L 1.18-3.74 slsn=454) MONOCYTES ABSOLUTE COUNT (BEAKER) (test 0.96 K/ L 0.24-0.36 cxiy=153) EOSINOPHILS ABSOLUTE COUNT (BEAKER) (test 0.21 K/ L 0.04-0.36 vccy=213) BASOPHILS ABSOLUTE COUNT (BEAKER) (test 0.04 K/ L 0.01-0.08 npsv=977) IMMATURE GRANULOCYTES-RELATIVE PERCENT (BEAKER) 0 % 0-1 (test ffxd=9714) POCT-GLUCOSE [id number] 19:53:00 Test Item Value Reference Range Comments POC-GLUCOSE METER (BEAKER) 104 mg/dL 70-110 TESTED AT [address] (test jbdk=8832) [facility] [address] POCT-GLUCOSE [id number] 17:13:00 Test Item Value Reference Range Comments POC-GLUCOSE METER (BEAKER) 116 mg/dL 70-110 TESTED AT [address] (test fwqx=4577) [facility] [address] POCT-GLUCOSE [id number] 12:52:00 Test Item Value Reference Range Comments POC-GLUCOSE METER (BEAKER) 94 mg/dL 70-110 TESTED AT [address] (test rvnc=9627) [facility] [address] POCT-GLUCOSE [id number] 07:54:00 Test Item Value Reference Range Comments POC-GLUCOSE METER (BEAKER) 91 mg/dL 70-110 TESTED AT [address] (test oxlp=5277) [facility] [address] BASIC METABOLIC [id number] 04:57:00 Test Item Value Reference Range Comments SODIUM (BEAKER) (test 142 meq/L 136-145 qdye=542) POTASSIUM (BEAKER) (test 3.5 meq/L 3.5-5.1 fhio=067) CHLORIDE (BEAKER) (test 111 meq/L 98-107 dhsu=346) CO2 (BEAKER) (test 24 meq/L 22-29 unpw=877) BLOOD UREA NITROGEN 42 mg/dL 7-21 (BEAKER) (test vfuk=298) CREATININE (BEAKER) (test 3.56 mg/dL 0.57-1.25 xdxj=616) GLUCOSE RANDOM (BEAKER) 90 mg/dL 70-105 (test gxiw=921) CALCIUM (BEAKER) (test 8.4 mg/dL 8.4-10.2 pnrj=034) EGFR (BEAKER) (test 14 mL/min/1.73 sq m ESTIMATED GFR IS NOT jkol=4153) ACCURATE CREATININE CLEARANCE IN PREDICTING GLOMERULAR FILTRATION RATE. ESTIMATED GFR IS NOT APPLICABLE FOR DIALYSIS PATIENTS. [id number] 04:50:00 Test Item Value Reference Range Comments MAGNESIUM (BEAKER) (test ndxl=724) 1.8 mg/dL 1.6-2.6 POCT-GLUCOSE [id number] 21:19:00 Test Item Value Reference Range Comments POC-GLUCOSE METER (BEAKER) 142 mg/dL 70-110 TESTED AT [address] (test zssx=0598) [facility] [address] POCT-GLUCOSE [id number] 16:51:00 Test Item Value Reference Range Comments POC-GLUCOSE METER (BEAKER) 196 mg/dL 70-110 TESTED AT [address] (test pivo=0776) [place] [address] POCT-GLUCOSE [id number] 12:00:00 Test Item Value Reference Range Comments POC-GLUCOSE METER (BEAKER) 76 mg/dL 70-110 TESTED AT [address] (test ldpw=2263) [place] [address] BASIC METABOLIC [id number] 11:34:00 Test Item Value Reference Range Comments SODIUM (BEAKER) (test 140 meq/L 136-145 tyqo=189) POTASSIUM (BEAKER) (test 3.4 meq/L 3.5-5.1 fzkq=882) CHLORIDE (BEAKER) (test 111 meq/L 98-107 dckf=807) CO2 (BEAKER) (test 22 meq/L 22-29 uqse=824) BLOOD UREA NITROGEN 42 mg/dL 7-21 (BEAKER) (test poev=688) CREATININE (BEAKER) (test 3.60 mg/dL 0.57-1.25 xvqa=592) GLUCOSE RANDOM (BEAKER) 83 mg/dL 70-105 (test carw=697) CALCIUM (BEAKER) (test 8.4 mg/dL 8.4-10.2 nxto=926) EGFR (BEAKER) (test 14 mL/min/1.73 sq m ESTIMATED GFR IS NOT zzll=9487) ACCURATE CREATININE CLEARANCE IN PREDICTING GLOMERULAR FILTRATION RATE. ESTIMATED GFR IS NOT APPLICABLE FOR DIALYSIS PATIENTS. [id number] 11:29:00 Test Item Value Reference Range Comments MAGNESIUM (BEAKER) (test olwl=335) 1.6 mg/dL 1.6-2.6 POCT-GLUCOSE [id number] 07:27:00 Test Item Value Reference Range Comments POC-GLUCOSE METER (BEAKER) 104 mg/dL 70-110 TESTED AT [address] (test jvfp=3885) [place] [id number] POCT-GLUCOSE [id number] 22:46:00 Test Item Value Reference Range Comments POC-GLUCOSE METER (BEAKER) 153 mg/dL 70-110 TESTED AT [address] (test svub=5661) [facility] [address] POCT-GLUCOSE [id number] 16:45:00 Test Item Value Reference Range Comments POC-GLUCOSE METER (BEAKER) 106 mg/dL 70-110 TESTED AT [address] (test tiot=6714) [facility] [address] POCT-GLUCOSE [id number] 11:29:00 Test Item Value Reference Range Comments POC-GLUCOSE METER (BEAKER) 145 mg/dL 70-110 TESTED AT [address] (test xvve=1584) [facility] [address] POCT-GLUCOSE [id number] 07:34:00 Test Item Value Reference Range Comments POC-GLUCOSE METER (BEAKER) 177 mg/dL 70-110 TESTED AT [address] (test huck=8263) [facility] [address] BASIC METABOLIC [id number] 06:41:00 Test Item Value Reference Range Comments SODIUM (BEAKER) (test 140 meq/L 136-145 myhy=602) POTASSIUM (BEAKER) (test 3.7 meq/L 3.5-5.1 fisx=285) CHLORIDE (BEAKER) (test 112 meq/L 98-107 acgq=580) CO2 (BEAKER) (test 22 meq/L 22-29 rvmt=869) BLOOD UREA NITROGEN 42 mg/dL 7-21 (BEAKER) (test ovft=423) CREATININE (BEAKER) (test 3.62 mg/dL 0.57-1.25 gxjb=215) GLUCOSE RANDOM (BEAKER) 174 mg/dL 70-105 (test jprq=684) CALCIUM (BEAKER) (test 8.7 mg/dL 8.4-10.2 yzyo=733) EGFR (BEAKER) (test 14 mL/min/1.73 sq m ESTIMATED GFR IS NOT ppzd=9001) ACCURATE CREATININE CLEARANCE IN PREDICTING GLOMERULAR FILTRATION RATE. ESTIMATED GFR IS NOT APPLICABLE FOR DIALYSIS PATIENTS. [id number] 06:25:00 Test Item Value Reference Range Comments MAGNESIUM (BEAKER) (test tbej=451) 1.8 mg/dL 1.6-2.6 CBC W/PLT COUNT & AUTO [id number] 05:51:00 Test Item Value Reference Range Comments WHITE BLOOD CELL COUNT (BEAKER) (test xyqs=357) 9.8 K/ L 3.5-10.5 RED BLOOD CELL COUNT (BEAKER) (test cacf=212) 2.72 M/ L 3.93-5.22 HEMOGLOBIN (BEAKER) (test nwsz=171) 8.0 GM/DL 11.2-15.7 HEMATOCRIT (BEAKER) (test hhbl=040) 25.6 % 34.1-44.9 MEAN CORPUSCULAR VOLUME (BEAKER) (test jgvm=640) 94.1 fL 79.4-94.8 MEAN CORPUSCULAR HEMOGLOBIN (BEAKER) (test 29.4 pg 25.6-32.2 gjrh=869) MEAN CORPUSCULAR HEMOGLOBIN CONC (BEAKER) (test 31.3 GM/DL 32.2-35.5 gojz=519) RED CELL DISTRIBUTION WIDTH (BEAKER) (test 14.8 % 11.7-14.4 qpwy=943) PLATELET COUNT (BEAKER) (test xnim=515) 245 K/CU MM 150-450 MEAN PLATELET VOLUME (BEAKER) (test mcke=161) 12.2 fL 9.4-12.3 NUCLEATED RED BLOOD CELLS (BEAKER) (test 0 /100 WBC 0-0 zcjf=981) NEUTROPHILS RELATIVE PERCENT (BEAKER) (test 66 % tazg=006) LYMPHOCYTES RELATIVE PERCENT (BEAKER) (test 18 % qxnn=732) MONOCYTES RELATIVE PERCENT (BEAKER) (test 11 % eqdy=828) EOSINOPHILS RELATIVE PERCENT (BEAKER) (test 4 % kows=442) BASOPHILS RELATIVE PERCENT (BEAKER) (test 0 % nmdp=092) NEUTROPHILS ABSOLUTE COUNT (BEAKER) (test 6.50 K/ L 1.56-6.13 wsuw=632) LYMPHOCYTES ABSOLUTE COUNT (BEAKER) (test 1.75 K/ L 1.18-3.74 uwux=238) MONOCYTES ABSOLUTE COUNT (BEAKER) (test 1.11 K/ L 0.24-0.36 hmvg=285) EOSINOPHILS ABSOLUTE COUNT (BEAKER) (test 0.40 K/ L 0.04-0.36 tzvx=589) BASOPHILS ABSOLUTE COUNT (BEAKER) (test 0.03 K/ L 0.01-0.08 ocqs=096) IMMATURE GRANULOCYTES-RELATIVE PERCENT (BEAKER) 0 % 0-1 (test izba=1311) POCT-GLUCOSE [id number] 22:54:00 Test Item Value Reference Range Comments POC-GLUCOSE METER (BEAKER) 173 mg/dL 70-110 TESTED AT [address] (test lvup=8414) [place] [address] POCT-GLUCOSE [id number] 16:55:00 Test Item Value Reference Range Comments POC-GLUCOSE METER (BEAKER) 95 mg/dL 70-110 TESTED AT [address] (test hzow=7005) [place] [address] URIC [id number] 12:46:00 Test Item Value Reference Range Comments URIC ACID (BEAKER) (test pszi=470) 5.9 mg/dL 2.6-7.2 POCT-GLUCOSE [id number] 11:38:00 Test Item Value Reference Range Comments POC-GLUCOSE METER (BEAKER) 129 mg/dL 70-110 TESTED AT [address] (test enmi=2468) [place] [address] [id number] 09:39:00 Test Item Value Reference Range Comments MAGNESIUM (BEAKER) (test obng=540) 1.9 mg/dL 1.6-2.6 BASIC METABOLIC [id number] 09:05:00 Test Item Value Reference Range Comments SODIUM (BEAKER) (test 141 meq/L 136-145 fnno=662) POTASSIUM (BEAKER) (test 3.9 meq/L 3.5-5.1 yvvm=102) CHLORIDE (BEAKER) (test 113 meq/L 98-107 daeo=508) CO2 (BEAKER) (test 22 meq/L 22-29 xhqa=548) BLOOD UREA NITROGEN 41 mg/dL 7-21 (BEAKER) (test lgto=519) CREATININE (BEAKER) (test 3.65 mg/dL 0.57-1.25 lwwl=179) GLUCOSE RANDOM (BEAKER) 202 mg/dL 70-105 (test xmpe=904) CALCIUM (BEAKER) (test 8.9 mg/dL 8.4-10.2 gtqe=445) EGFR (BEAKER) (test 13 mL/min/1.73 sq m ESTIMATED GFR IS NOT pxpy=8357) ACCURATE CREATININE CLEARANCE IN PREDICTING GLOMERULAR FILTRATION RATE. ESTIMATED GFR IS NOT APPLICABLE FOR DIALYSIS PATIENTS. CBC W/PLT COUNT & AUTO [id number] 08:22:00 Test Item Value Reference Range Comments WHITE BLOOD CELL COUNT (BEAKER) (test jwvh=418) 10.2 K/ L 3.5-10.5 RED BLOOD CELL COUNT (BEAKER) (test ggzz=052) 2.85 M/ L 3.93-5.22 HEMOGLOBIN (BEAKER) (test kkcb=840) 8.5 GM/DL 11.2-15.7 HEMATOCRIT (BEAKER) (test bhgp=859) 26.8 % 34.1-44.9 MEAN CORPUSCULAR VOLUME (BEAKER) (test hexd=349) 94.0 fL 79.4-94.8 MEAN CORPUSCULAR HEMOGLOBIN (BEAKER) (test 29.8 pg 25.6-32.2 dpob=046) MEAN CORPUSCULAR HEMOGLOBIN CONC (BEAKER) (test 31.7 GM/DL 32.2-35.5 ybdu=789) RED CELL DISTRIBUTION WIDTH (BEAKER) (test 15.0 % 11.7-14.4 qdnq=991) PLATELET COUNT (BEAKER) (test mhsv=890) 248 K/CU MM 150-450 MEAN PLATELET VOLUME (BEAKER) (test xetn=497) 11.7 fL 9.4-12.3 NUCLEATED RED BLOOD CELLS (BEAKER) (test 0 /100 WBC 0-0 digm=004) NEUTROPHILS RELATIVE PERCENT (BEAKER) (test 69 % mdup=637) LYMPHOCYTES RELATIVE PERCENT (BEAKER) (test 16 % tkob=801) MONOCYTES RELATIVE PERCENT (BEAKER) (test 10 % ylwu=328) EOSINOPHILS RELATIVE PERCENT (BEAKER) (test 4 % dptl=159) BASOPHILS RELATIVE PERCENT (BEAKER) (test 0 % ypre=154) NEUTROPHILS ABSOLUTE COUNT (BEAKER) (test 7.01 K/ L 1.56-6.13 jywu=029) LYMPHOCYTES ABSOLUTE COUNT (BEAKER) (test 1.62 K/ L 1.18-3.74 pqwe=100) MONOCYTES ABSOLUTE COUNT (BEAKER) (test 1.04 K/ L 0.24-0.36 xjcb=854) EOSINOPHILS ABSOLUTE COUNT (BEAKER) (test 0.40 K/ L 0.04-0.36 rsgn=407) BASOPHILS ABSOLUTE COUNT (BEAKER) (test 0.03 K/ L 0.01-0.08 ucvd=808) IMMATURE GRANULOCYTES-RELATIVE PERCENT (BEAKER) 1 % 0-1 (test ubjv=5996) POCT-GLUCOSE [id number] 07:28:00 Test Item Value Reference Range Comments POC-GLUCOSE METER (BEAKER) 253 mg/dL 70-110 TESTED AT [address] (test kkhn=3230) [facility] [address] POCT-GLUCOSE [id number] 20:28:00 Test Item Value Reference Range Comments POC-GLUCOSE METER (BEAKER) 186 mg/dL 70-110 TESTED AT [address] (test csly=7140) [place] [id number] POCT-GLUCOSE [id number] 17:39:00 Test Item Value Reference Range Comments POC-GLUCOSE METER (BEAKER) 130 mg/dL 70-110 TESTED AT [address] (test kzow=9521) [place] [id number] POCT-GLUCOSE [id number] 11:55:00 Test Item Value Reference Range Comments POC-GLUCOSE METER (BEAKER) 212 mg/dL 70-110 TESTED AT [address] (test jyqk=2566) [place] [id number] POCT-GLUCOSE [id number] 08:14:00 Test Item Value Reference Range Comments POC-GLUCOSE METER (BEAKER) 178 mg/dL 70-110 TESTED AT [address] (test idpy=8690) [place] [id number] BASIC METABOLIC [id number] 07:08:00 Test Item Value Reference Range Comments SODIUM (BEAKER) (test 141 meq/L 136-145 wwgm=928) POTASSIUM (BEAKER) (test 3.9 meq/L 3.5-5.1 kqgz=753) CHLORIDE (BEAKER) (test 113 meq/L 98-107 wjiv=236) CO2 (BEAKER) (test 22 meq/L 22-29 khjk=690) BLOOD UREA NITROGEN 39 mg/dL 7-21 (BEAKER) (test ehty=828) CREATININE (BEAKER) (test 3.40 mg/dL 0.57-1.25 xrfw=965) GLUCOSE RANDOM (BEAKER) 151 mg/dL 70-105 (test kdwu=505) CALCIUM (BEAKER) (test 9.1 mg/dL 8.4-10.2 szfi=323) EGFR (BEAKER) (test 15 mL/min/1.73 sq m ESTIMATED GFR IS NOT jkqy=7663) ACCURATE CREATININE CLEARANCE IN PREDICTING GLOMERULAR FILTRATION RATE. ESTIMATED GFR IS NOT APPLICABLE FOR DIALYSIS PATIENTS. [id number] 06:59:00 Test Item Value Reference Range Comments MAGNESIUM (BEAKER) (test lomu=235) 1.8 mg/dL 1.6-2.6 CBC W/PLT COUNT & AUTO [id number] 06:34:00 Test Item Value Reference Range Comments WHITE BLOOD CELL COUNT (BEAKER) (test btyu=212) 9.5 K/ L 3.5-10.5 RED BLOOD CELL COUNT (BEAKER) (test giqq=156) 2.84 M/ L 3.93-5.22 HEMOGLOBIN (BEAKER) (test jzng=378) 8.4 GM/DL 11.2-15.7 HEMATOCRIT (BEAKER) (test jonx=938) 26.8 % 34.1-44.9 MEAN CORPUSCULAR VOLUME (BEAKER) (test mchm=927) 94.4 fL 79.4-94.8 MEAN CORPUSCULAR HEMOGLOBIN (BEAKER) (test 29.6 pg 25.6-32.2 sbqs=896) MEAN CORPUSCULAR HEMOGLOBIN CONC (BEAKER) (test 31.3 GM/DL 32.2-35.5 dhyi=331) RED CELL DISTRIBUTION WIDTH (BEAKER) (test 15.5 % 11.7-14.4 hfwt=616) PLATELET COUNT (BEAKER) (test uahf=512) 237 K/CU MM 150-450 MEAN PLATELET VOLUME (BEAKER) (test rsqp=876) 12.5 fL 9.4-12.3 NUCLEATED RED BLOOD CELLS (BEAKER) (test 0 /100 WBC 0-0 qlcr=955) NEUTROPHILS RELATIVE PERCENT (BEAKER) (test 66 % eplj=263) LYMPHOCYTES RELATIVE PERCENT (BEAKER) (test 20 % jdph=116) MONOCYTES RELATIVE PERCENT (BEAKER) (test 9 % deef=693) EOSINOPHILS RELATIVE PERCENT (BEAKER) (test 4 % gaci=543) BASOPHILS RELATIVE PERCENT (BEAKER) (test 0 % iwmw=845) NEUTROPHILS ABSOLUTE COUNT (BEAKER) (test 6.29 K/ L 1.56-6.13 sjkm=532) LYMPHOCYTES ABSOLUTE COUNT (BEAKER) (test 1.91 K/ L 1.18-3.74 oids=068) MONOCYTES ABSOLUTE COUNT (BEAKER) (test 0.86 K/ L 0.24-0.36 swhh=045) EOSINOPHILS ABSOLUTE COUNT (BEAKER) (test 0.39 K/ L 0.04-0.36 gqbo=059) BASOPHILS ABSOLUTE COUNT (BEAKER) (test 0.03 K/ L 0.01-0.08 uwrq=199) IMMATURE GRANULOCYTES-RELATIVE PERCENT (BEAKER) 0 % 0-1 (test rxpq=1162) POCT-GLUCOSE [id number] 20:06:00 Test Item Value Reference Range Comments POC-GLUCOSE METER (BEAKER) 113 mg/dL 70-110 TESTED AT [address] (test dsyb=3200) [place] [id number] POCT-GLUCOSE [id number] 17:11:00 Test Item Value Reference Range Comments POC-GLUCOSE METER (BEAKER) 123 mg/dL 70-110 TESTED AT [address] (test tozc=9662) [facility] [id number] POCT-GLUCOSE [id number] 12:31:00 Test Item Value Reference Range Comments POC-GLUCOSE METER (BEAKER) 105 mg/dL 70-110 TESTED AT [address] (test rjpx=4732) [place] [id number] POCT-GLUCOSE [id number] 07:41:00 Test Item Value Reference Range Comments POC-GLUCOSE METER (BEAKER) 95 mg/dL 70-110 TESTED AT [address] (test jwwl=3762) [facility] [id number] BASIC METABOLIC [id number] 06:26:00 Test Item Value Reference Range Comments SODIUM (BEAKER) (test 141 meq/L 136-145 idpa=594) POTASSIUM (BEAKER) (test 3.8 meq/L 3.5-5.1 tqmi=556) CHLORIDE (BEAKER) (test 113 meq/L 98-107 whkk=070) CO2 (BEAKER) (test 25 meq/L 22-29 zcyy=858) BLOOD UREA NITROGEN 40 mg/dL 7-21 (BEAKER) (test uvic=157) CREATININE (BEAKER) (test 3.15 mg/dL 0.57-1.25 suzh=396) GLUCOSE RANDOM (BEAKER) 81 mg/dL 70-105 (test jhix=844) CALCIUM (BEAKER) (test 9.2 mg/dL 8.4-10.2 wdvy=171) EGFR (BEAKER) (test 16 mL/min/1.73 sq m ESTIMATED GFR IS NOT uvat=0541) ACCURATE CREATININE CLEARANCE IN PREDICTING GLOMERULAR FILTRATION RATE. ESTIMATED GFR IS NOT APPLICABLE FOR DIALYSIS PATIENTS. [id number] 06:19:00 Test Item Value Reference Range Comments MAGNESIUM (BEAKER) (test dwcm=443) 1.9 mg/dL 1.6-2.6 CBC W/PLT COUNT & AUTO [id number] 06:06:00 Test Item Value Reference Range Comments WHITE BLOOD CELL COUNT (BEAKER) (test jhom=359) 9.8 K/ L 3.5-10.5 RED BLOOD CELL COUNT (BEAKER) (test ddob=294) 2.36 M/ L 3.93-5.22 HEMOGLOBIN (BEAKER) (test yjzy=762) 7.0 GM/DL 11.2-15.7 HEMATOCRIT (BEAKER) (test qzwa=725) 22.3 % 34.1-44.9 MEAN CORPUSCULAR VOLUME (BEAKER) (test ehar=683) 94.5 fL 79.4-94.8 MEAN CORPUSCULAR HEMOGLOBIN (BEAKER) (test 29.7 pg 25.6-32.2 fmox=938) MEAN CORPUSCULAR HEMOGLOBIN CONC (BEAKER) (test 31.4 GM/DL 32.2-35.5 joco=948) RED CELL DISTRIBUTION WIDTH (BEAKER) (test 15.6 % 11.7-14.4 ryxg=980) PLATELET COUNT (BEAKER) (test cwuq=538) 225 K/CU MM 150-450 MEAN PLATELET VOLUME (BEAKER) (test qutm=121) 12.3 fL 9.4-12.3 NUCLEATED RED BLOOD CELLS (BEAKER) (test 0 /100 WBC 0-0 axku=729) NEUTROPHILS RELATIVE PERCENT (BEAKER) (test 63 % dlll=391) LYMPHOCYTES RELATIVE PERCENT (BEAKER) (test 23 % jlxu=880) MONOCYTES RELATIVE PERCENT (BEAKER) (test 9 % roat=803) EOSINOPHILS RELATIVE PERCENT (BEAKER) (test 5 % qipu=036) BASOPHILS RELATIVE PERCENT (BEAKER) (test 0 % acko=342) NEUTROPHILS ABSOLUTE COUNT (BEAKER) (test 6.17 K/ L 1.56-6.13 kkfl=165) LYMPHOCYTES ABSOLUTE COUNT (BEAKER) (test 2.27 K/ L 1.18-3.74 jgzh=787) MONOCYTES ABSOLUTE COUNT (BEAKER) (test 0.84 K/ L 0.24-0.36 lnfv=335) EOSINOPHILS ABSOLUTE COUNT (BEAKER) (test 0.44 K/ L 0.04-0.36 gxyk=359) BASOPHILS ABSOLUTE COUNT (BEAKER) (test 0.04 K/ L 0.01-0.08 nati=918) IMMATURE GRANULOCYTES-RELATIVE PERCENT (BEAKER) 0 % 0-1 (test ddrl=3605) POCT-GLUCOSE [id number] 22:48:00 Test Item Value Reference Range Comments POC-GLUCOSE METER (BEAKER) 106 mg/dL 70-110 TESTED AT [address] (test bvzf=5359) [place] [id number] POCT-GLUCOSE [id number] 17:24:00 Test Item Value Reference Range Comments POC-GLUCOSE METER (BEAKER) 106 mg/dL 70-110 TESTED AT [address] (test dtma=3026) [place] [address] POCT-GLUCOSE [id number] 12:04:00 Test Item Value Reference Range Comments POC-GLUCOSE METER (BEAKER) 206 mg/dL 70-110 TESTED AT [address] (test nznp=4668) [place] [id number] POCT-GLUCOSE [id number] 07:23:00 Test Item Value Reference Range Comments POC-GLUCOSE METER (BEAKER) 221 mg/dL 70-110 TESTED AT [address] (test kzgl=0821) [place] [id number] VITAMIN B12 AND [id number] 06:47:00 Test Item Value Reference Range Comments VITAMIN B12 (BEAKER) (test nujb=219) 441 pg/mL 213-816 FOLATE (BEAKER) (test txrp=288) 7.7 ng/mL >=7.0 [id number] 06:25:00 Test Item Value Reference Range Comments MAGNESIUM (BEAKER) (test itod=968) 1.9 mg/dL 1.6-2.6 BASIC METABOLIC [id number] 06:25:00 Test Item Value Reference Range Comments SODIUM (BEAKER) (test 141 meq/L 136-145 cult=279) POTASSIUM (BEAKER) (test 3.7 meq/L 3.5-5.1 zass=085) CHLORIDE (BEAKER) (test 111 meq/L 98-107 vtaf=261) CO2 (BEAKER) (test 23 meq/L 22-29 kjfo=232) BLOOD UREA NITROGEN 39 mg/dL 7-21 (BEAKER) (test lzju=205) CREATININE (BEAKER) (test 3.25 mg/dL 0.57-1.25 zoyk=720) GLUCOSE RANDOM (BEAKER) 183 mg/dL 70-105 (test prok=324) CALCIUM (BEAKER) (test 9.8 mg/dL 8.4-10.2 fxgg=176) EGFR (BEAKER) (test 15 mL/min/1.73 sq m ESTIMATED GFR IS NOT mbvz=9053) ACCURATE CREATININE CLEARANCE IN PREDICTING GLOMERULAR FILTRATION RATE. ESTIMATED GFR IS NOT APPLICABLE FOR DIALYSIS PATIENTS. CREATININE, RANDOM [id number] 05:48:00 Test Item Value Reference Range Comments CREATININE URINE (BEAKER) (test mwcp=695) 40.4 mg/dL Reference Range: No NormalsUREA NITROGEN, RANDOM [id number] 05:48:00 Test Item Value Reference Range Comments UREA NITROGEN URINE (BEAKER) (test xvel=336) 224 mg/dL Reference Range: No NormalsPOCT-GLUCOSE [id number] 16:52:00 Test Item Value Reference Range Comments POC-GLUCOSE METER (BEAKER) 123 mg/dL 70-110 TESTED AT [facility] [address] [facility] (test pyiu=5162) [facility] [address] EEG AWAKE AND [id number] 14:21:00Reason for exam:->?[facility] DATE OF TEST: 04/26/2018 ACC: [id number] Start time: 10:25 Stop time: 10:55 ICD-10: R55 CPT Code: 64189 HISTORY: 43 yo female with PMHx of PE, CHF, HTN, DMII, JOSEFA, morbid obesity, and possible seizure disorder/syncope admitted with syncopal episode;found to have SHWETHA, rhabdomyolysis, and ketosis. MEDICATIONS [...] M.D., MECCA, EDMUND, STEPHY Professor of Neurology, [facility] [employer] Director, [facility] Head, [facility] POCT-GLUCOSE [id number] 11:40:00 Test Item Value Reference Range Comments POC-GLUCOSE METER (BEAKER) 116 mg/dL 70-110 TESTED AT [facility] [address] [facility] (test wpaf=7383) [facility] [address] BASIC METABOLIC [id number] 10:48:00 Test Item Value Reference Range Comments SODIUM (BEAKER) (test 141 meq/L 136-145 dwjv=950) POTASSIUM (BEAKER) (test 3.4 meq/L 3.5-5.1 avro=912) CHLORIDE (BEAKER) (test 112 meq/L 98-107 hsaw=418) CO2 (BEAKER) (test 20 meq/L 22-29 xuqx=200) BLOOD UREA NITROGEN 40 mg/dL 7-21 (BEAKER) (test cnpf=755) CREATININE (BEAKER) (test 3.21 mg/dL 0.57-1.25 davv=987) GLUCOSE RANDOM (BEAKER) 109 mg/dL 70-105 (test oyld=944) CALCIUM (BEAKER) (test 11.3 mg/dL 8.4-10.2 wyjh=842) EGFR (BEAKER) (test 16 mL/min/1.73 sq m ESTIMATED GFR IS NOT pxtq=4106) ACCURATE CREATININE CLEARANCE IN PREDICTING GLOMERULAR FILTRATION RATE. ESTIMATED GFR IS NOT APPLICABLE FOR DIALYSIS PATIENTS. CREATINE KINASE (CK)2018-04-26 10:43:00 Test Item Value Reference Range Comments CREATINE KINASE TOTAL (BEAKER) (test oskx=386) 153 U/L 29-200 POCT-GLUCOSE [id number] 07:38:00 Test Item Value Reference Range Comments POC-GLUCOSE METER (BEAKER) 125 mg/dL 70-110 TESTED AT [facility] [address] [facility] (test cxos=6618) [place] [address] CBC W/PLT COUNT & AUTO [id number] 06:49:00 Test Item Value Reference Range Comments WHITE BLOOD CELL COUNT (BEAKER) (test knlh=731) 10.7 K/ L 3.5-10.5 RED BLOOD CELL COUNT (BEAKER) (test etrd=231) 2.58 M/ L 3.93-5.22 HEMOGLOBIN (BEAKER) (test xceu=377) 7.7 GM/DL 11.2-15.7 HEMATOCRIT (BEAKER) (test xiep=165) 24.0 % 34.1-44.9 MEAN CORPUSCULAR VOLUME (BEAKER) (test muix=492) 93.0 fL 79.4-94.8 MEAN CORPUSCULAR HEMOGLOBIN (BEAKER) (test 29.8 pg 25.6-32.2 qjoi=318) MEAN CORPUSCULAR HEMOGLOBIN CONC (BEAKER) (test 32.1 GM/DL 32.2-35.5 lpls=502) RED CELL DISTRIBUTION WIDTH (BEAKER) (test 15.9 % 11.7-14.4 erfq=401) PLATELET COUNT (BEAKER) (test uibu=493) 212 K/CU MM 150-450 MEAN PLATELET VOLUME (BEAKER) (test xygl=615) 12.4 fL 9.4-12.3 NUCLEATED RED BLOOD CELLS (BEAKER) (test 0 /100 WBC 0-0 wxjq=083) NEUTROPHILS RELATIVE PERCENT (BEAKER) (test 64 % ttmb=549) LYMPHOCYTES RELATIVE PERCENT (BEAKER) (test 24 % yvnd=578) MONOCYTES RELATIVE PERCENT (BEAKER) (test 8 % afch=910) EOSINOPHILS RELATIVE PERCENT (BEAKER) (test 4 % alvy=670) BASOPHILS RELATIVE PERCENT (BEAKER) (test 0 % uqeu=544) NEUTROPHILS ABSOLUTE COUNT (BEAKER) (test 6.84 K/ L 1.56-6.13 vann=084) LYMPHOCYTES ABSOLUTE COUNT (BEAKER) (test 2.55 K/ L 1.18-3.74 amio=306) MONOCYTES ABSOLUTE COUNT (BEAKER) (test 0.84 K/ L 0.24-0.36 faqg=473) EOSINOPHILS ABSOLUTE COUNT (BEAKER) (test 0.44 K/ L 0.04-0.36 jscg=141) BASOPHILS ABSOLUTE COUNT (BEAKER) (test 0.03 K/ L 0.01-0.08 kles=139) IMMATURE GRANULOCYTES-RELATIVE PERCENT (BEAKER) 0 % 0-1 (test gkhh=4124) POCT-GLUCOSE [id number] 20:35:00 Test Item Value Reference Range Comments POC-GLUCOSE METER (BEAKER) 173 mg/dL 70-110 TESTED AT [address] (test bmvl=6526) [place] [id number] POCT-GLUCOSE [id number] 18:13:00 Test Item Value Reference Range Comments POC-GLUCOSE METER (BEAKER) 128 mg/dL 70-110 TESTED AT [address] (test iacj=3366) [place] [id number] POCT-GLUCOSE [id number] 12:16:00 Test Item Value Reference Range Comments POC-GLUCOSE METER (BEAKER) 235 mg/dL 70-110 TESTED AT [address] (test uxud=0549) [place] [id number] VITAMIN D, [id number] 09:48:00 Test Item Value Reference Range Comments VITAMIN D 25-OH (BEAKER) (test ldho=4466) 5.3 ng/mL 6.6-49.9 Effective 01/14/2017: Reference Range ChangeNew: 6.6-49.9 ng/mL Previous: 13.0 -47.8 ng/mLRecommended Vitamin D Target Range: 30.0-40.0 ng/mLPOCT-GLUCOSE [id number] 08:59:00 Test Item Value Reference Range Comments POC-GLUCOSE METER (BEAKER) 298 mg/dL 70-110 TESTED AT [facility] [address] (test xefx=9596) [facility] [address] HEMOGLOBIN [id number] 08:30:00 Test Item Value Reference Range Comments HEMOGLOBIN A1C (BEAKER) (test fttf=566) 7.9 % 4.3-6.1 BASIC METABOLIC [id number] 08:16:00 Test Item Value Reference Range Comments SODIUM (BEAKER) (test 138 meq/L 136-145 vlra=422) POTASSIUM (BEAKER) (test 3.2 meq/L 3.5-5.1 twxj=910) CHLORIDE (BEAKER) (test 110 meq/L 98-107 gwln=171) CO2 (BEAKER) (test 24 meq/L 22-29 vptv=010) BLOOD UREA NITROGEN 40 mg/dL 7-21 (BEAKER) (test gllt=251) CREATININE (BEAKER) (test 3.40 mg/dL 0.57-1.25 pqmb=040) GLUCOSE RANDOM (BEAKER) 243 mg/dL 70-105 (test ugwu=920) CALCIUM (BEAKER) (test 9.6 mg/dL 8.4-10.2 uoxm=703) EGFR (BEAKER) (test 15 mL/min/1.73 sq m ESTIMATED GFR IS NOT wdez=9174) ACCURATE CREATININE CLEARANCE IN PREDICTING GLOMERULAR FILTRATION RATE. ESTIMATED GFR IS NOT APPLICABLE FOR DIALYSIS PATIENTS. PTH, [id number] 08:13:00 Test Item Value Reference Range Comments PARATHYROID HORMONE INTACT (BEAKER) (test 15.4 pg/mL 8.5-72.5 glcq=252) IRON, TIBC, % SAT. (WITHOUT FERRITIN)2018-04-25 08:06:00 Test Item Value Reference Range Comments IRON (BEAKER) (test gnux=283) 53.0 ug/dL 40.0-160.0 TOTAL IRON BINDING CAPACITY (BEAKER) (test 113 ug/dL 250-450 kmwu=310) IRON % SATURATION (2) (BEAKER) (test ompt=9097) 47 % 20-55 [id number] 08:05:00 Test Item Value Reference Range Comments PHOSPHORUS (BEAKER) (test cqrd=726) 5.2 mg/dL 2.3-4.7 CREATINE KINASE (CK)2018-04-25 08:05:00 Test Item Value Reference Range Comments CREATINE KINASE TOTAL (BEAKER) (test srba=794) 352 U/L 29-200 PROTEIN, RANDOM [id number] 02:06:00 Test Item Value Reference Range Comments PROTEIN, URINE (BEAKER) (test wwky=7841) > mg/dL 0-14 SODIUM, RANDOM [id number] 00:57:00 Test Item Value Reference Range Comments SODIUM URINE (BEAKER) (test pxka=813) < meq/L Reference Range: No NormalsCREATININE, RANDOM [id number] 00:52:00 Test Item Value Reference Range Comments CREATININE URINE (BEAKER) (test pzjn=207) 131.0 mg/dL Reference Range: No NormalsURINALYSIS W/ REFLEX URINE [id number] 00:32:00 Test Item Value Reference Range Comments COLOR (BEAKER) (test nnsc=151) Yellow CLARITY (BEAKER) (test ysnp=666) Hazy SPECIFIC GRAVITY UA (BEAKER) (test lpvm=670) 1.024 1.001-1.035 PH UA (BEAKER) (test cgec=957) 6.0 5.0-8.0 PROTEIN UA (BEAKER) (test qrvx=388) 600 mg/dL Negative GLUCOSE UA (BEAKER) (test xffc=329) >1000 mg/dL Negative KETONES UA (BEAKER) (test qhzw=639) Negative Negative BILIRUBIN UA (BEAKER) (test atjm=681) Negative Negative BLOOD UA (BEAKER) (test rqxi=756) Moderate Negative NITRITE UA (BEAKER) (test bwny=436) Negative Negative LEUKOCYTE ESTERASE UA (BEAKER) (test jcov=197) Negative Negative UROBILINOGEN UA (BEAKER) (test iege=488) 0.2 mg/dL 0.2-1.0 RBC UA (BEAKER) (test reoo=828) 5 /HPF WBC UA (BEAKER) (test ohyy=316) 5 /HPF BACTERIA (BEAKER) (test pzgk=962) Occasional MUCUS (BEAKER) (test jaet=9784) Rare SQUAMOUS EPITHELIAL (BEAKER) (test vzmu=319) 16 /HPF HYALINE CASTS (BEAKER) (test zbha=259) 21 /LPF GRANULAR CASTS (BEAKER) (test vdav=018) 30 /LPF AMORPHOUS CRYSTALS (BEAKER) (test pcxj=0392) Many SOURCE(BEAKER) (test ypdq=9264) POCT-GLUCOSE [id number] 21:23:00 Test Item Value Reference Range Comments POC-GLUCOSE METER (BEAKER) 250 mg/dL 70-110 TESTED AT [facility] [address] [facility] (test tixb=2034) [facility] [address] BASIC METABOLIC [id number] 20:14:00 Test Item Value Reference Range Comments SODIUM (BEAKER) (test 138 meq/L 136-145 mqht=193) POTASSIUM (BEAKER) (test 3.2 meq/L 3.5-5.1 fgub=433) CHLORIDE (BEAKER) (test 108 meq/L 98-107 jula=148) CO2 (BEAKER) (test 21 meq/L 22-29 kqzl=417) BLOOD UREA NITROGEN 35 mg/dL 7-21 (BEAKER) (test nyjr=107) CREATININE (BEAKER) (test 3.30 mg/dL 0.57-1.25 zlrx=587) GLUCOSE RANDOM (BEAKER) 214 mg/dL 70-105 (test srdm=025) CALCIUM (BEAKER) (test 9.8 mg/dL 8.4-10.2 xaqi=540) EGFR (BEAKER) (test 15 mL/min/1.73 sq m ESTIMATED GFR IS NOT aunz=5973) ACCURATE CREATININE CLEARANCE IN PREDICTING GLOMERULAR FILTRATION RATE. ESTIMATED GFR IS NOT APPLICABLE FOR DIALYSIS PATIENTS. TROPONIN [id number] 18:18:00 Test Item Value Reference Range Comments TROPONIN I (BEAKER) (test ysjy=310) 0.07 ng/mL 0.00-0.03 Troponin I (TnI) levels must be interpreted in the context of the presenting symptoms and the clinical findings. Elevated TnI levels indicate myocardial damage, but are not specific for ischemic heart disease. Elevated TnI levels are seen in patients with other cardiac conditions (including myocarditis and congestive heart failure), and slight TnI elevations occur in patients with other conditions, including sepsis, renal failure, acidosis, acute neurological disease, and persistent tachyarrhythmia.CREATINE KINASE (CK)2018-04-24 18:12:00 Test Item Value Reference Range Comments CREATINE KINASE TOTAL (BEAKER) (test esie=785) 566 U/L 29-200 POCT-GLUCOSE [id number] 17:31:00 Test Item Value Reference Range Comments POC-GLUCOSE METER (BEAKER) 249 mg/dL 70-110 TESTED AT [place] [id number] [facility] (test zkfi=6801) [facility] [address] U/S, RENAL, [id number] 16:18:00Reason for exam:->AKIFINAL REPORT RENAL ULTRASOUND HISTORY: Acute kidney injury [...] and veins demonstrated patency. The bladder is decompressed , which may account for mild prominence of the bladder wall. Bladder wall thickening cannot be excluded. IMPRESSION: No ultrasound abnormalities are visualized in the kidneys. Signed: Niru Hare MDReport Verified Date/Time: 04/24/2018 16:18:43 Reading Location: [address] Reading Room POCT- GLUCOSE [id number] 15:05:00 Test Item Value Reference Range Comments POC-GLUCOSE METER (BEAKER) 391 mg/dL 70-110 TESTED AT [address] (test mojb=0019) [facility] [address] LACTIC ACID, VENOUS, WHOLE [id number] 11:35:00 Test Item Value Reference Range Comments LACTATE BLOOD VENOUS (2) 1.3 mmol/L 0.5-2.2 Specimen slightly hemolyzed (BEAKER) (test bmsh=8702) RAPID DRUG SCREEN, [id number] 08:50:00 Test Item Value Reference Range Comments BARBITURATE URINE (BEAKER) (test sjwh=067) Negative Negative BENZODIAZEPINE SCREEN URINE (BEAKER) (test Negative Negative bvee=924) COCAINE (METAB.) SCREEN (BEAKER) (test qkyf=9152) Negative Negative METHADONE SCREEN (BEAKER) (test hmyu=2566) Negative Negative OPIATE SCREEN URINE (BEAKER) (test esxk=037) Negative Negative CANNABINOID SCREEN URINE (BEAKER) (test exne=990) Negative Negative AMPH/METHAMPH SCREEN (BEAKER) (test teoo=4346) Negative Negative PHENCYCLIDINE SCREEN URINE (BEAKER) (test yygh=414) Negative Negative OXYCODONE SCREEN URINE (BEAKER) (test vpis=7450) Negative Negative DRUG CUTOFF CONC.Cocaine 300 ng/mL Cannabinoid 50 ng/mL Benzodiazepine 200 ng/mLBarbiturate 200 ng/ mLPhencyclidine 25 ng/mLOpiate 300 ng/mLMethadone 300 ng/mLAmphetamine/ 1000 ng/mL MethamphetamineOxycodone 300 ng/mLThis assay provides an unconfirmed qualitative test result for the clinical management of patients in emergency situations. Chain of custody not maintained. Some bfow-mwq-fpmpeyl medications, as well as adulterants, may cause inaccurate results. Clinical correlation should be applied. A more comprehensive drug screen or confirmation of a detected drug may be performed upon request.SODIUM, RANDOM [id number] 08:44:00 Test Item Value Reference Range Comments SODIUM URINE (BEAKER) (test sbhw=776) 23 meq/L Reference Range: No NormalsCREATININE, RANDOM [id number] 08:43:00 Test Item Value Reference Range Comments CREATININE URINE (BEAKER) (test ngjx=118) 95.4 mg/dL Reference Range: No NormalsPOCT-GLUCOSE [id number] 08:01:00 Test Item Value Reference Range Comments POC-GLUCOSE METER (BEAKER) 496 mg/dL 70-110 TESTED AT [address] (test lpic=8777) [place] [id number] URIC [id number] 08:01:00 Test Item Value Reference Range Comments URIC ACID (BEAKER) (test fqyr=961) 5.2 mg/dL 2.6-7.2 POCT-GLUCOSE [id number] 07:32:00 Test Item Value Reference Range Comments POC-GLUCOSE METER (BEAKER) 480 mg/dL 70-110 TESTED AT [address] (test tvty=4013) [facility] [address] URINALYSIS W/ [id number] 07:30:00 Test Item Value Reference Range Comments COLOR (BEAKER) (test sojh=072) Yellow CLARITY (BEAKER) (test urpp=233) Hazy SPECIFIC GRAVITY UA (BEAKER) (test wlyk=114) 1.024 1.001-1.035 PH UA (BEAKER) (test pjhu=188) 6.5 5.0-8.0 PROTEIN UA (BEAKER) (test kxft=276) >600 mg/dL Negative GLUCOSE UA (BEAKER) (test bsfx=163) >1000 mg/dL Negative KETONES UA (BEAKER) (test poyx=253) 20 mg/dL Negative BILIRUBIN UA (BEAKER) (test zqhn=093) Negative Negative BLOOD UA (BEAKER) (test tfec=976) Moderate Negative NITRITE UA (BEAKER) (test rpoq=483) Negative Negative LEUKOCYTE ESTERASE UA (BEAKER) (test gyra=734) Negative Negative UROBILINOGEN UA (BEAKER) (test myjj=575) 0.2 mg/dL 0.2-1.0 RBC UA (BEAKER) (test icqm=148) 2 /HPF WBC UA (BEAKER) (test kaqt=609) 8 /HPF BACTERIA (BEAKER) (test lljw=466) Many MUCUS (BEAKER) (test thfp=8276) Rare SQUAMOUS EPITHELIAL (BEAKER) (test hgte=755) 6 /HPF HYALINE CASTS (BEAKER) (test jxah=879) 15 /LPF GRANULAR CASTS (BEAKER) (test njes=318) 4 /LPF SOURCE(BEAKER) (test mbgr=9626) Urine, Voided TROPONIN [id number] 07:29:00 Test Item Value Reference Range Comments TROPONIN I (BEAKER) (test zaci=258) 0.06 ng/mL 0.00-0.03 Troponin I (TnI) levels must be interpreted in the context of the presenting symptoms and the clinical findings. Elevated TnI levels indicate myocardial damage, but are not specific for ischemic heart disease. Elevated TnI levels are seen in patients with other cardiac conditions (including myocarditis and congestive heart failure), and slight TnI elevations occur in patients with other conditions, including sepsis, renal failure, acidosis, acute neurological disease, and persistent tachyarrhythmia. SCREEN, [id number] 07:17: 00 Test Item Value Reference Range Comments TEST URINE (BEAKER) (test ascg=426) Negative CBC W/PLT COUNT & AUTO [id number] 07:05:00 Test Item Value Reference Range Comments WHITE BLOOD CELL COUNT (BEAKER) (test udar=161) 11.7 K/ L 3.5-10.5 RED BLOOD CELL COUNT (BEAKER) (test tkni=400) 2.78 M/ L 3.93-5.22 HEMOGLOBIN (BEAKER) (test uqcc=523) 8.3 GM/DL 11.2-15.7 HEMATOCRIT (BEAKER) (test ytne=654) 25.1 % 34.1-44.9 MEAN CORPUSCULAR VOLUME (BEAKER) (test yyim=527) 90.3 fL 79.4-94.8 MEAN CORPUSCULAR HEMOGLOBIN (BEAKER) (test 29.9 pg 25.6-32.2 zmow=099) MEAN CORPUSCULAR HEMOGLOBIN CONC (BEAKER) (test 33.1 GM/DL 32.2-35.5 ttfu=077) RED CELL DISTRIBUTION WIDTH (BEAKER) (test 15.3 % 11.7-14.4 pjvo=830) PLATELET COUNT (BEAKER) (test ertl=436) 208 K/CU MM 150-450 MEAN PLATELET VOLUME (BEAKER) (test sxpq=538) 13.3 fL 9.4-12.3 NUCLEATED RED BLOOD CELLS (BEAKER) (test 0 /100 WBC 0-0 akzl=960) NEUTROPHILS RELATIVE PERCENT (BEAKER) (test 94 % tjfn=143) LYMPHOCYTES RELATIVE PERCENT (BEAKER) (test 5 % xxup=257) MONOCYTES RELATIVE PERCENT (BEAKER) (test 0 % npyu=507) EOSINOPHILS RELATIVE PERCENT (BEAKER) (test 0 % ccqd=542) BASOPHILS RELATIVE PERCENT (BEAKER) (test 0 % ebvz=397) NEUTROPHILS ABSOLUTE COUNT (BEAKER) (test 10.99 K/ L 1.56-6.13 lfzc=008) LYMPHOCYTES ABSOLUTE COUNT (BEAKER) (test 0.56 K/ L 1.18-3.74 rogk=809) MONOCYTES ABSOLUTE COUNT (BEAKER) (test 0.04 K/ L 0.24-0.36 xqzd=288) EOSINOPHILS ABSOLUTE COUNT (BEAKER) (test 0.00 K/ L 0.04-0.36 sirj=603) BASOPHILS ABSOLUTE COUNT (BEAKER) (test 0.01 K/ L 0.01-0.08 hkqc=608) IMMATURE GRANULOCYTES-RELATIVE PERCENT (BEAKER) 1 % 0-1 (test ahxe=7495) COMPREHENSIVE METABOLIC [id number] 03:08:00 Test Item Value Reference Range Comments TOTAL PROTEIN (BEAKER) 5.4 gm/dL 6.0-8.3 (test agqu=592) ALBUMIN (BEAKER) (test 2.1 g/dL 3.5-5.0 yawa=1738) ALKALINE PHOSPHATASE 111 U/L 40-150 (BEAKER) (test plgs=166) BILIRUBIN TOTAL (BEAKER) 0.5 mg/dL 0.2-1.2 (test mmsh=199) SODIUM (BEAKER) (test 139 meq/L 136-145 kxdu=962) POTASSIUM (BEAKER) (test 2.9 meq/L 3.5-5.1 bruw=099) CHLORIDE (BEAKER) (test 108 meq/L 98-107 wand=666) CO2 (BEAKER) (test 22 meq/L 22-29 sfvy=747) BLOOD UREA NITROGEN 29 mg/dL 7-21 (BEAKER) (test qqpi=806) CREATININE (BEAKER) (test 3.07 mg/dL 0.57-1.25 qqpm=578) GLUCOSE RANDOM (BEAKER) 300 mg/dL 70-105 (test doxg=833) CALCIUM (BEAKER) (test 10.7 mg/dL 8.4-10.2 wqnx=532) AST (SGOT) (BEAKER) (test 89 U/L 5-34 qkjm=611) ALT (SGPT) (BEAKER) (test 62 U/L 6-55 cwgv=609) EGFR (BEAKER) (test 16 mL/min/1.73 sq m ESTIMATED GFR IS NOT ljlb=0734) ACCURATE CREATININE CLEARANCE IN PREDICTING GLOMERULAR FILTRATION RATE. ESTIMATED GFR IS NOT APPLICABLE FOR DIALYSIS PATIENTS. TSH/FREE T4 IF [id number] 02:49:00 Test Item Value Reference Range Comments THYROID STIMULATING HORMONE (BEAKER) (test 1.32 uIU/mL 0.35-4.94 yund=038) [id number] 02:37:00 Test Item Value Reference Range Comments MAGNESIUM (BEAKER) (test htap=549) 1.6 mg/dL 1.6-2.6 CREATINE KINASE (CK)2018-04-24 02:37:00 Test Item Value Reference Range Comments CREATINE KINASE TOTAL (BEAKER) (test xgmo=349) 1983 U/L 29-200 CBC W/PLT COUNT & AUTO [id number] 01:03:00 Test Item Value Reference Range Comments WHITE BLOOD CELL COUNT (BEAKER) (test gsbs=174) 12.5 K/ L 3.5-10.5 RED BLOOD CELL COUNT (BEAKER) (test hjzm=941) 3.18 M/ L 3.93-5.22 HEMOGLOBIN (BEAKER) (test kryg=202) 9.4 GM/DL 11.2-15.7 HEMATOCRIT (BEAKER) (test gzkv=478) 28.4 % 34.1-44.9 MEAN CORPUSCULAR VOLUME (BEAKER) (test gxmx=282) 89.3 fL 79.4-94.8 MEAN CORPUSCULAR HEMOGLOBIN (BEAKER) (test 29.6 pg 25.6-32.2 estq=893) MEAN CORPUSCULAR HEMOGLOBIN CONC (BEAKER) (test 33.1 GM/DL 32.2-35.5 zsqk=577) RED CELL DISTRIBUTION WIDTH (BEAKER) (test 15.1 % 11.7-14.4 bxxu=306) PLATELET COUNT (BEAKER) (test nfnk=980) 216 K/CU MM 150-450 MEAN PLATELET VOLUME (BEAKER) (test ujhz=437) 13.0 fL 9.4-12.3 NUCLEATED RED BLOOD CELLS (BEAKER) (test 0 /100 WBC 0-0 uquh=983) NEUTROPHILS RELATIVE PERCENT (BEAKER) (test 95 % twia=136) LYMPHOCYTES RELATIVE PERCENT (BEAKER) (test 3 % xyrx=657) MONOCYTES RELATIVE PERCENT (BEAKER) (test 1 % zsnm=458) EOSINOPHILS RELATIVE PERCENT (BEAKER) (test 0 % psqm=221) BASOPHILS RELATIVE PERCENT (BEAKER) (test 0 % hhkj=592) NEUTROPHILS ABSOLUTE COUNT (BEAKER) (test 11.90 K/ L 1.56-6.13 rdfa=361) LYMPHOCYTES ABSOLUTE COUNT (BEAKER) (test 0.43 K/ L 1.18-3.74 migk=693) MONOCYTES ABSOLUTE COUNT (BEAKER) (test 0.08 K/ L 0.24-0.36 bmzp=958) EOSINOPHILS ABSOLUTE COUNT (BEAKER) (test 0.00 K/ L 0.04-0.36 yxer=432) BASOPHILS ABSOLUTE COUNT (BEAKER) (test 0.02 K/ L 0.01-0.08 uwar=634) IMMATURE GRANULOCYTES-RELATIVE PERCENT (BEAKER) 1 % 0-1 (test rhzd=9052) RAD, CHEST, 1 VIEW, NON [id number] 23:44:00Reason for exam:->Syncope, rhabdomyolysisIs the patient ?->UnknownShould this be performed at the bedside?->YesFINAL REPORT Chest one view. Clinical history: Syncope, rhabdomyolysis Comparison: None. Technique: A single frontal view of the chest was obtained. Findings: The heart is normal in size. The aorta is uncoiled. There is no focal pulmonary consolidation, pleural effusion or pneumothorax. There is no pulmonary edema. The bony thorax is unremarkable. Impression: No focal pulmonary consolidation. Signed: Yamilex Sawant MDReport Verified Date/Time: 04/23/2018 23:44:17 Reading Location: [address] Reading Room
[2018-05-31 18:00] LABS: Absolute Lymphocytes (CBC) 0.8 K/uL (0.7-4.9); Absolute Monocytes 0.5 K/uL (0.1-1.3); Absolute Neutrophil 6.8 K/uL (1.8-8.0); Basophils % 0.6 % (0-1.3); Eosinophils % 0.6 % (0-4.4); Hematocrit 24.1 % (36.0-45.0); Lymphocytes % 9.8 % (15.3-44.8); MPV 9.9 fL (7.6-11.3); Monocytes % 5.6 % (3.3-12.3); RBC Red Blood Cell Count 2.71 M/uL (3.86-4.86)
[2018-05-31 18:27] LABS: ALT/SGPT 20 U/L (12-78); AST/SGOT 24 U/L (15-37); Albumin 1.9 g/dL (3.4-5.0); Alkaline Phosphatase 81 U/L (45-117); BUN Blood Urea Nitrogen 32 mg/dL (7-18); Bicarbonate 23 mmol/L (21-32); Bilirubin Direct < 0.1 mg/dL (0-0.2); Bilirubin Total 0.3 mg/dL (0.2-1.0); Glucose Level 134 mg/dL (74-106); Lipase 50 U/L (73-393); Magnesium 1.8 mg/dL (1.8-2.4); NT PRO-BNP 7128 pg/mL (<125); Potassium 3.3 mmol/L (3.5-5.1); Protein, Total 5.6 g/dL (6.4-8.2); Sodium Level 142 mmol/L (136-145); Troponin (Emerg Dept Use Only) 0.02 ng/mL (0.0-0.045)
[2018-05-31] MEDS ORDERED: PANTOPRAZOLE 40 MG INJ ONE (18:30)
--- NOTE | 2018-05-31 18:36 | EKG ---
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
--- NOTE | 2018-05-31 18:41 | EDPHYS ---
Physician Documentation [facility] Name: Sherita Patel Age: 43 yrs Sex: Female : 1975 Arrival Date: 05/31/2018 Time: 16:41 Bed 6 Private MD: Out, [facility] ED Physician Josh Mandujano HPI: 05/31 17:45 This 43 yrs old Female presents to ER via Wheelchair with complaints of jose Breathing Difficulty. 17:45 The patient has shortness of breath at rest, with light activity. Onset: The jose symptoms/episode began/occurred 1 day(s) ago. Duration: The symptoms are continuous, and are steadily getting worse. The patient's shortness of breath has no apparent modifying factors. Associated signs and symptoms: The patient has no apparent associated signs or symptoms. Severity of symptoms: At their worst the symptoms were mild in the emergency department the symptoms are unchanged. The patient has experienced similar episodes in the past, multiple times. ASSISTANCE COORDINATOR: 17:09 LMP N/A - Irregular menses hj Historical: - Allergies: 16:48 SHELLFISH; aa5 - Home Meds: 16:54 amlodipine 10 mg tab 1 tab once daily [Active]; atorvastatin 20 mg Oral tab 1 tab once hj daily [Active]; Humalog Mix 75-25 Sub-Q [Active]; Lasix 20 mg Oral tab once daily [Active]; Trujeo [Active]; - PMHx: 16:48 Asthma; Diabetes - IDDM; Hyperlipidemia; PE; CHF; Renal Disease Stage 3; aa5 16:54 Diabetes - NIDDM; Renal Disease; hj - Immunization history:: Adult Immunizations unknown. - Ebola Screening: : No symptoms or risks identified at this time. - Social history:: Smoking status: Patient/guardian denies using tobacco, Patient/guardian denies using alcohol. - Family history:: not pertinent. ROS: 17:45 Constitutional: Negative for fever, chills, and weight loss, Eyes: Negative for injury, jose pain, redness, and discharge, ENT: Negative for injury, pain, and discharge, Neck: Negative for injury, pain, and swelling, Cardiovascular: Negative for chest pain, palpitations, and edema, Abdomen/GI: Negative for abdominal pain, nausea, vomiting, diarrhea, and constipation, Back: Negative for injury and pain, : Negative for injury, bleeding, discharge, and swelling, Skin: Negative for injury, rash, and discoloration, Neuro: Negative for headache, weakness, numbness, tingling, and seizure, Psych: Negative for depression, anxiety, suicide ideation, homicidal ideation, and hallucinations, Allergy/Immunology: Negative for hives, rash, and allergies, Endocrine: Negative for neck swelling, polydipsia, polyuria, polyphagia, and marked weight changes, Hematologic/Lymphatic: Negative for swollen nodes, abnormal bleeding, and unusual bruising. 17:45 Respiratory: Positive for cough, dyspnea on exertion, shortness of breath. 17:45 Abdomen/GI: Positive for abdominal distension. 17:45 MS/extremity: Positive for swelling, tenderness, of the right leg and left leg. 17:45 Skin: Positive for pallor. Exam: 17:45 Constitutional: This is a well developed, well nourished patient who is awake, alert, jose and in no acute distress. Head/Face: Normocephalic, atraumatic. Eyes: Pupils equal round and reactive to light, extra-ocular motions intact. Lids and lashes normal. Conjunctiva and sclera are non-icteric and not injected. Cornea within normal limits. Periorbital areas with no swelling, redness, or edema. ENT: Nares patent. No nasal discharge, no septal abnormalities noted. Tympanic membranes are normal and external auditory canals are clear. Oropharynx with no redness, swelling, or masses, exudates, or evidence of obstruction, uvula midline. Mucous membranes moist. Neck: Trachea midline, no thyromegaly or masses palpated, and no cervical lymphadenopathy. Supple, full range of motion without nuchal rigidity, or vertebral point tenderness. No Meningismus. Chest/axilla: Normal chest wall appearance and motion. Nontender with no deformity. No lesions are appreciated. Cardiovascular: Regular rate and rhythm with a normal S1 and S2. No gallops, murmurs, or rubs. Normal PMI, no JVD. No pulse deficits. Respiratory: Lungs have equal breath sounds bilaterally, clear to auscultation and percussion. No rales, rhonchi or wheezes noted. No increased work of breathing, no retractions or nasal flaring. Back: No spinal tenderness. No costovertebral tenderness. Full range of motion. Neuro: Awake and alert, GCS 15, oriented to person, place, time, and situation. Cranial nerves II-XII grossly intact. Motor strength 5/5 in all extremities. Sensory grossly intact. Cerebellar exam normal. Normal gait. Psych: Awake, alert, with orientation to person, place and time. Behavior, mood, and affect are within normal limits. 17:45 Abdomen/GI: Bowel sounds: normal, Palpation: nontender, Liver: no appreciated palpable abnormalities, Hernia: not appreciated. 17:45 Musculoskeletal/extremity: Extremities: swelling, ROM: full active range of motion, full passive range of motion, Circulation is intact in all extremities. Sensation intact. Compartment Syndrome exam of affected extremity: is normal. DVT Exam: negative Homans' sign noted on exam, no appreciated bluish discoloration, no erythema, no increased warmth, pain, swelling, tenderness. Vital Signs: 17:07 BP 148 / 71; Pulse 99; Resp 18; Temp 98.1(O); Pulse Ox 100% on 2 lpm NC; Weight 136.08 hj kg; Height 5 ft. 8 in. (172.72 cm); 18:13 BP 143 / 62; Pulse 104; Resp 18; Pulse Ox 100% on 2 lpm NC; hj 18:26 BP 116 / 80; Pulse 100; Resp 18; Pulse Ox 100% on 2 lpm NC; hj 20:03 BP 179 / 107; Pulse 111; Resp 22; Temp 98.2; Pulse Ox 100% on 2 lpm NC; Pain 10/10; ak1 21:13 BP 178 / 73; Pulse 105; Resp 20; Temp 98.2; Pulse Ox 100% on 2 lpm NC; ak1 17:07 Body Mass Index 45.61 (136.08 kg, 172.72 cm) MDM: 16:45 Patient medically screened. [facility] 17:48 Data reviewed: vital signs, nurses notes, lab test result(s), EKG, radiologic studies, [facility] plain films. 05/31 17:45 Order name: Basic Metabolic Panel [facility] 05/31 17:45 Order name: CBC with Diff [facility] 05/31 17:45 Order name: LFT's [facility] 05/31 17:45 Order name: Magnesium; Complete Time: 18:29 [facility] 05/31 17:45 Order name: NT PRO-BNP; Complete Time: 18:29 [facility] 05/31 17:45 Order name: PT-INR; Complete Time: 18:13 [facility] 05/31 17:45 Order name: Troponin (emerg Dept Use Only); Complete Time: 18:29 [facility] 05/31 17:45 Order name: TSH; Complete Time: 18:29 [facility] 05/31 17:45 Order name: Urine Culture [facility] 05/31 17:45 Order name: Lipase; Complete Time: 18:29 [facility] 05/31 17:45 Order name: Basic Metabolic Panel; Complete Time: 18:29 [facility] 05/31 17:45 Order name: CBC with Automated Diff; Complete Time: 18:13 [facility] 05/31 17:45 Order name: Liver (Hepatic) Function; Complete Time: 18:29 [facility] 05/31 18:13 Order name: Type And Screen [facility] 05/31 17:45 Order name: XRAY Chest (1 view) [facility] 05/31 17:51 Order name: US Extremity Venous W Compression Derek; Complete Time: 19:03 [facility] 05/31 18:33 Order name: CT Chest Abdomen Pelvis W/O Contrast: no oral no iv [facility] 05/31 18:34 Order name: Blood Culture Adult (2) [facility] 05/31 18:37 Order name: Bb Add On bd 05/31 18:40 Order name: Packed RBC Leukored -1 [facility] 05/31 20:31 Order name: Urinalysis [facility] 05/31 20:31 Order name: CBC with Automated Diff [facility] 05/31 20:31 Order name: CBC with Automated Diff [facility] 05/31 20:31 Order name: Comprehensive Metabolic Panel [facility] 05/31 20:31 Order name: Comprehensive Metabolic Panel [facility] 05/31 20:31 Order name: Magnesium [facility] 05/31 20:31 Order name: Magnesium [facility] 05/31 20:31 Order name: Phosphorus [facility] 05/31 20:31 Order name: Phosphorus [facility] 05/31 17:45 Order name: EKG; Complete Time: 17:45 [facility] 05/31 17:45 Order name: Cardiac monitoring; Complete Time: 17:45 [facility] 05/31 17:45 Order name: EKG - Nurse/Tech; Complete Time: 17:45 [facility] 05/31 17:45 Order name: IV Saline Lock; Complete Time: 17:45 [facility] 05/31 17:45 Order name: Labs collected and sent; Complete Time: 17:45 [facility] 05/31 17:45 Order name: O2 Per Protocol; Complete Time: 17:45 [facility] 05/31 17:45 Order name: O2 Sat Monitoring; Complete Time: 17:45 [facility] 05/31 18:35 Order name: IV Saline Lock - Large Bore; Complete Time: 18:56 [facility] 05/31 20:31 Order name: CONS Physician Consult [facility] 05/31 20:31 Order name: CONS Physician Consult [facility] 05/31 20:31 Order name: Renal EDMS Administered Medications: 18:16 Drug: ProTONIX 40 mg Route: IVP; Site: right antecubital; 18:23 Follow up: Response: No adverse reaction Point of Care Testing: Guaiac: 18:28 Stool Guaiac: Positive; Stool Hemoccult Control: Pass; [facility] Disposition: 05/31/18 18:41 Hospitalization ordered by Mery Salazar for Inpatient Admission. Preliminary diagnosis are Dyspnea, Pleurisy, Obesity, unspecified, Anemia, unspecified, Gastrointestinal hemorrhage, unspecified, Unspecified kidney failure, Type 1 diabetes mellitus. - Bed requested for Telemetry/MedSurg (Inpatient). - Status is Inpatient Admission. ak1 - Condition is Fair. - Problem is new. - Symptoms have improved. UTI on Admission? No Signatures: Dispatcher [employer] [facility] Josh Mandujano MD MD cha Calderon, Audri, RN RN aa5 Mili Mccoy, RN RN ak1 Patrick Obrien, KATERINE RN Ana Rae RN RN cg Corrections: (The following items were deleted from the chart) 19:07 18:41 Hospitalization Ordered by Mery Salazar MD for Inpatient Admission. Preliminary [facility] diagnosis is Dyspnea; Pleurisy; Obesity, unspecified; Anemia, unspecified; Gastrointestinal hemorrhage, unspecified; Unspecified kidney failure. Bed requested for Telemetry/MedSurg (Inpatient). Status is Inpatient Admission. Condition is Fair. Problem is new. Symptoms have improved. UTI on Admission? No. [facility] 20:50 19:07 05/31/2018 18:41 Hospitalization Ordered by Mery Salazar MD for Inpatient cg Admission. Preliminary diagnosis is Dyspnea; Pleurisy; Obesity, unspecified; Anemia, unspecified; Gastrointestinal hemorrhage, unspecified; Unspecified kidney failure; Type 1 diabetes mellitus. Bed requested for Telemetry/MedSurg (Inpatient). Status is Inpatient Admission. Condition is Fair. Problem is new. Symptoms have improved. UTI on Admission? No. jose 21:34 20:50 05/31/2018 18:41 Hospitalization Ordered by Mery Salazar MD for Inpatient ak1 Admission. Preliminary diagnosis is Dyspnea; Pleurisy; Obesity, unspecified; Anemia, unspecified; Gastrointestinal hemorrhage, unspecified; Unspecified kidney failure; Type 1 diabetes mellitus. Bed requested for Telemetry/MedSurg (Inpatient). Status is Inpatient Admission. Condition is Fair. Problem is new. Symptoms have improved. UTI on Admission? No. cg
--- NOTE | 2018-05-31 18:41 | ER ---
Nurse's Notes [facility] Name: Sherita Patel Age: 43 yrs Sex: Female : 1975 Arrival Date: 05/31/2018 Time: 16:41 Bed 6 Private MD: Out, [facility] Diagnosis: Dyspnea;Pleurisy;Obesity, unspecified;Anemia, unspecified;Gastrointestinal hemorrhage, unspecified;Unspecified kidney failure;Type 1 diabetes mellitus Presentation: 05/31 16:47 Presenting complaint: Patient states: "my chest hurts when I take a breath in since aa5 this morning". Pt states "I also fell 3 weeks ago and I bruised my chest but it didn't hurt". Pt reports home O2 at 2 L as needed. Pt reports cough. 16:47 Transition of care: patient was not received from another setting of care. Onset of aa5 symptoms was May 31, 2018. Risk Assessment: Do you want to hurt yourself or someone else? Patient reports no desire to harm self or others. Care prior to arrival: None. 16:47 Method Of Arrival: Wheelchair aa5 16:47 Acuity: ERNST 3 aa5 16:52 Initial Sepsis Screen: Does the patient meet any 2 criteria? Yes Does the patient have hj a suspected source of infection? No. Patient's initial sepsis screen is negative. Triage Assessment: 17:09 General: Appears in no apparent distress. uncomfortable. Respiratory: Onset: The hj symptoms/episode began/occurred. Respiratory: the patient has moderate shortness of breath. PRODUCT LEAD: 17:09 LMP N/A - Irregular menses hj Historical: - Allergies: 16:48 SHELLFISH; aa5 - Home Meds: 16:54 amlodipine 10 mg tab 1 tab once daily [Active]; atorvastatin 20 mg Oral tab 1 tab once hj daily [Active]; Humalog Mix 75-25 Sub-Q [Active]; Lasix 20 mg Oral tab once daily [Active]; Trujeo [Active]; - PMHx: 16:48 Asthma; Diabetes - IDDM; Hyperlipidemia; PE; CHF; Renal Disease Stage 3; aa5 16:54 Diabetes - NIDDM; Renal Disease; hj - Immunization history:: Adult Immunizations unknown. - Ebola Screening: : No symptoms or risks identified at this time. - Social history:: Smoking status: Patient/guardian denies using tobacco, Patient/guardian denies using alcohol. - Family history:: not pertinent. Screenin:51 Abuse screen: Denies threats or abuse. Denies injuries from another. Nutritional hj screening: No deficits noted. Tuberculosis screening: No symptoms or risk factors identified. Fall Risk Fall in past 12 months (25 points). Assessment: 16:52 General: Appears in no apparent distress. uncomfortable, obese, Behavior is calm, hj cooperative, appropriate for age. Pain: Complains of pain in chest. Neuro: Level of Consciousness is awake, alert, obeys commands, Oriented to person, place, time, situation, Appropriate for age. Cardiovascular: Rhythm is. Respiratory: Reports labored breathing pain with respiration Airway is patent Respiratory effort is labored, Respiratory pattern is regular, symmetrical, GI: No signs and/or symptoms were reported involving the gastrointestinal system. : No signs and/or symptoms were reported regarding the genitourinary system. EENT: No signs and/or symptoms were reported regarding the EENT system. Derm: No signs and/or symptoms reported regarding the dermatologic system. Musculoskeletal: No signs and/or symptoms reported regarding the musculoskeletal system. 17:45 Reassessment: Patient and/or family updated on plan of care and expected duration. Pain hj level reassessed. Patient is alert, oriented x 3, equal unlabored respirations, skin warm/dry/pink. awaiting results and POC;. 18:26 Reassessment: Patient and/or family updated on plan of care and expected duration. Pain hj level reassessed. Patient is alert, oriented x 3, equal unlabored respirations, skin warm/dry/pink. awaiting POC;. 18:32 Reassessment: wheeled to US for US to R/O DVT;. hj 18:53 Reassessment: still at US;. hj 19:35 Reassessment: pt family member being rude to pt and talking down to pt, charge nurse ak1 notified. pt IV infiltrated, charge nurse at bedside to place US IV. 19:52 Reassessment: pt requesting pain medication for chronic hip pain. Dr. Mandujano is no ak1 longer in the facility and Dr. Salazar has not placed admission orders as of yet. 20:25 Reassessment: Dr. Salazar contacted new verbal order for 2 mg morphine IVP and 4mg Zofran ak1 IVP as a one time order. orders to be placed in [facility] for administration documentation. Dr. Salazar stated pt should be admitted to Dr. Escamilla, her GI specialist, and a call has been placed to GI for admission orders. 20:32 Reassessment: pt and family informed of wait for admission orders and for GI specialist ak1 to be contacted prior to bed assignment and transport upstairs. Vital Signs: 17:07 BP 148 / 71; Pulse 99; Resp 18; Temp 98.1(O); Pulse Ox 100% on 2 lpm NC; Weight 136.08 hj kg; Height 5 ft. 8 in. (172.72 cm); 18:13 BP 143 / 62; Pulse 104; Resp 18; Pulse Ox 100% on 2 lpm NC; hj 18:26 BP 116 / 80; Pulse 100; Resp 18; Pulse Ox 100% on 2 lpm NC; hj 20:03 BP 179 / 107; Pulse 111; Resp 22; Temp 98.2; Pulse Ox 100% on 2 lpm NC; Pain 10/10; ak1 21:13 BP 178 / 73; Pulse 105; Resp 20; Temp 98.2; Pulse Ox 100% on 2 lpm NC; ak1 17:07 Body Mass Index 45.61 (136.08 kg, 172.72 cm) hj ED Course: 16:41 Patient arrived in ED. dl4 16:41 Out, [facility] is Private Physician. dl4 16:44 Josh Mandujano MD is Attending Physician. [facility] 16:46 Patrick Obrien, KATERINE is Primary Nurse. hj 16:48 Arm band placed on Patient placed in an exam room, on a stretcher. aa5 16:51 Triage completed. aa5 16:53 Patient has correct armband on for positive identification. Placed in gown. Bed in low hj position. Call light in reach. Side rails up X2. Adult w/ patient. 17:06 EKG done, by public works technician. reviewed by Josh Mandujano MD. 3 17:07 Initial lab(s) drawn, by ne. Inserted saline lock: 20 gauge in right in left Blood hj collected. 17:10 Missed attempt(s): 20 gauge in right forearm. IV discontinued, intact, bleeding pc1 controlled, No redness/swelling at site. Pressure dressing applied. 17:50 TSH Sent. hj 17:50 Lipase Sent. hj 17:50 Basic Metabolic Panel Sent. hj 17:50 CBC with Automated Diff Sent. hj 17:50 Liver (Hepatic) Function Sent. hj 17:50 Magnesium Sent. hj 17:50 NT PRO-BNP Sent. hj 17:50 PT-INR Sent. hj 17:50 Troponin (emerg Dept Use Only) Sent. hj 18:06 XRAY Chest (1 view) In Process Unspecified. EDMS 18:32 Type And Screen Sent. hj 18:34 T\\T\\S collected, blood band applied to patient. pc1 18:39 Mery Salazar MD is Hospitalizing Provider. jose 18:41 Radiology exam delayed due to PT IN US AT THIS TIME; US TO GIVE PT TO CT WHEN FINISHED. vm2 18:56 US Extremity Venous W Compression Derek In Process Unspecified. EDMS 18:56 Bb Add On Sent. hj 18:[address] via stretcher. vm2 19:04 CT Chest Abdomen Pelvis W/O Contrast: no oral no iv In Process Unspecified. EDMS 19:05 CT completed. Patient tolerated procedure well. Patient moved back from CT. vm2 19:34 Consent for blood and/or blood product transfusion explained by staff, signed by ak1 patient. 20:04 IV discontinued, intact, bleeding controlled, No redness/swelling at site. Pressure ak1 dressing applied, 20G IV to right AC discharged. 20:05 Accessed peripheral vein via ultrasound, utilizing dynamic ultrasound technique using ak1 20G Nexia IV catheter ,sterile technique, Clean \\T\\ dry. Dressing intact. Good blood return. Flushes easily. placed by Michelle Banerjee RN. 20:06 No provider procedures requiring assistance completed. ak1 Administered Medications: 18:16 Drug: ProTONIX 40 mg Route: IVP; Site: right antecubital; hj 18:23 Follow up: Response: No adverse reaction Point of Care Testing: Guaiac: 18:28 Stool Guaiac: Positive; Stool Hemoccult Control: Pass; jose Outcome: 18:41 Decision to Hospitalize by Provider. jose 20:54 Admitted to Med/surg accompanied by tech, via stretcher, room 206, with chart. ak1 20:54 Condition: stable 20:55 Instructed on the need for admit. ak1 21:34 Patient left the ED. ak1 Signatures: Dispatcher [employer] Josh Garcia MD MD cha Calderon, Audri, RN RN aa5 Mili Mccoy RN RN ak1 Patrick Obrien RN RN hj McGuire, Victoria 2 Sarah Beth [place] 3 Star Lim 4 Pavan Malone pc1
--- NOTE | 2018-05-31 19:01 | RAD REPORT ---
EXAM DESCRIPTION: US - Extrem Venous W Compress Derek - 05/31/2018 6:56 pm CLINICAL HISTORY: Leg pain and swelling COMPARISON: None. TECHNIQUE: Real-time sonographic evaluation of the bilateral lower extremity common femoral, superfi cial femoral, popliteal and posterior tibial veins was performed. FINDINGS: Normal compressibility, flow augmentation, phasic flow and spontaneous flow are identified in the left and right lower extremity common femoral, superficial femoral, popliteal and posterior t ibial veins. No intraluminal filling defects seen. IMPRESSION: No DVT in either lower extremity.
--- NOTE | 2018-05-31 19:30 | RAD REPORT ---
EXAM DESCRIPTION: CT - Chest Abd Pelvis Wo Con - 05/31/2018 7:04 pm CLINICAL HISTORY: Chest pain, abdominal pain, difficulty breathing COMPARISON: CT chest December 2015 TECHNIQUE: During dynamic enhancement using 100 milliliters nonionic IV contrast, axial 5 millimeter thick images of the chest, abdomen and pelvis were obtained. Biphasic technique was utilized through the abdomen. No oral contrast administered. All CT scans are performed using dose optimization technique as appropriate and may include automated exposure control or mA/KV adjustment according to patient size. FINDINGS: Airspace consolidation involves the lingula of the left upper lobe accounting for the late ral left chest opacification on earlier chest film. There is minimal patchy opacification in the left lower lobe. Patient has bilateral small pleural effusions. Small nonspecific mediastinal lymph nodes are present. No pneumothorax. No chest wall mass or abnormal axillary lymphadenopathy seen. Small p ericardial effusion present. Moderate fluid retention seen in the subcutaneous fatty tissues. The liver, spleen and pancreas show no suspicious findings on noncontrast imaging. Gallbladder and bi liary tree are normal. No hydronephrosis or acute renal process on noncontrast imaging. Isodense masses and pyelonephritis a re not excluded on a noncontrast study. No adrenal abnormalities. No urinary bladder abnormality. Ut erus and ovaries are grossly normal. Detail is limited due to body habitus. No dilated bowel loops or focal ball bowel wall thickening. Minimal amount of ascites adjacent to th e liver. No free air or pneumatosis. No hernia, mass or bulky lymphadenopathy. No significant bone or vascular finding. IMPRESSION: Moderate-sized pneumonia fills the lingula of the left upper lobe. There is minimal patc hy pneumonia change at the base of the left lower lobe. Small bilateral pleural effusions are present. No acute finding in the peritoneal or retroperitoneal spaces. The patient has a minimal amount of asc ites. Pericardial effusion small in size. Moderate severity fluid retention pattern in the subcutaneous fatty tissues.
[2018-05-31] MEDS ORDERED: ACETAMINOPHEN 500 MG TAB PO PRN (20:27)
[2018-05-31] MEDS ORDERED: ALBUTEROL 2.5 MG/3 ML NEB SOL NEB PRN (20:27)
[2018-05-31] MEDS ORDERED: ONDANSETRON 4 MG/2 ML VIAL ONE (20:34)
[2018-05-31] MEDS ORDERED: MORPHINE 2 MG/ML SYR ONE (20:34)
[2018-05-31] MEDS ORDERED: MORPHINE 2 MG/ML SYR IV ONE (20:46)
[2018-05-31] MEDS ORDERED: ONDANSETRON 4 MG/2 ML VIAL IV ONE (20:48)
[2018-05-31] MEDS ORDERED: HOME MED 1 EA UNK (Metoprolol Tartrate [Metoprolol Tartrate] 1 TAB) PO SCH (22:30)
[2018-05-31] MEDS ORDERED: SODIUM CHLORIDE 0.9% 10ML INJ IV PRN (22:32)
[2018-05-31] MEDS ORDERED: PANTOPRAZOLE 40 MG INJ IVP ONE (22:32)
[2018-06-01] MEDS: IPRATROPIUM BROM 0.5MG/2.5ML NEB PRN
[2018-06-01] MEDS ORDERED: DIPHENHYDRAMINE 50 MG/ML VIAL IV ONE (00:35)
[2018-06-01] MEDS: NIFEDIPINE XL 60 MG TABLET PO SCH ×3 (01:03→22:01)
[2018-06-01] MEDS ORDERED: NA CHLORIDE 0.9% 250 ML ONE (01:13)
[2018-06-01] MEDS: HYDROMORPHONE HCL 1 MG/ML INJ IV PRN ×4 (02:35→22:09)
[2018-06-01] MEDS ORDERED: FUROSEMIDE 40 MG/4 ML VIAL IV ONE ×2 (02:54→05:46)
[2018-06-01] MEDS ORDERED: METOPROLOL TARTRATE 5 MG/5 ML INJ IV STA (05:03)
[2018-06-01] MEDS ORDERED: MORPHINE 4 MG/ML SYR IV ONE (06:07)
[2018-06-01 06:31] LABS: Arterial Blood Carboxyhemoglob 1.2 % (0-1.5); Blood Gas Oxyhemoglobin 83.3 % (94-97); Blood O2 Saturation 84.8 % (92-98.5)
[2018-06-01 06:32] LABS: Absolute Lymphocytes (CBC) 0.5 K/uL (0.7-4.9); Absolute Monocytes 0.2 K/uL (0.1-1.3); Absolute Neutrophil 7.4 K/uL (1.8-8.0); Basophils % 0.4 % (0-1.3); Eosinophils % 0.2 % (0-4.4); Hematocrit 25.8 % (36.0-45.0); Lymphocytes % 6.3 % (15.3-44.8); MPV 10.4 fL (7.6-11.3); Monocytes % 2.9 % (3.3-12.3); RBC Red Blood Cell Count 2.87 M/uL (3.86-4.86)
[2018-06-01 06:33] LABS: Albumin 1.8 g/dL (3.4-5.0); Bilirubin Total 0.3 mg/dL (0.2-1.0); Magnesium 1.8 mg/dL (1.8-2.4); Phosphorus 5.3 mg/dL (2.5-4.9); Potassium 3.6 mmol/L (3.5-5.1); Protein, Total 5.5 g/dL (6.4-8.2)
[2018-06-01] MEDS: INSULIN LISPRO 100 UNIT/1 ML SQ SCH ×3 (07:30→16:49)
[2018-06-01 08:13] LABS: Anisocytosis 1+; Blood Morphology Comment NOTED (NOT SEEN); Platelet Estimate ADEQ; Poikilocytosis 1+; Urine White Blood Cell Casts OK
--- NOTE | 2018-06-01 08:27 | P.CNS ---
Date of Consult: 06/01/18 Reason for Consult: SHWETHA Chief Complaint: Dyspnea History of Present Illness: 17:45 This 43 yrs old Female presents to ER via Wheelchair with complaints of jose Breathing Difficulty. 17:45 The patient has shortness of breath at rest, with light activity. Onset: The jose symptoms/episode began/occurred 1 day(s) ago. Duration: The symptoms are continuous, and are steadily getting worse. The patient's shortness of breath has no apparent modifying factors. Associated signs and symptoms: The patient has no apparent associated signs or symptoms. Severity of symptoms: At their worst the symptoms were mild in the emergency department the symptoms are unchanged. The patient has experienced similar episodes in the past, multiple times. Patient is a 43yo blue admitted to the hospital with shortness of breath. patient with hypoventilation syndrome. She has had a couple of different episodes with shortness of breath. She had an echo done few months ago which revealed a normal ejection fraction. No common on right ventricular pressures. No commenting on impaired relaxation either. Possible diastolic dysfunction. Patient also with questionable pneumonia seen on x-ray. Patient will be admitted to the hospital for further workup. Patient is also anemic which is chronic. She was scheduled to get a capsule endoscopy. She will be seen by GI in the hospital. I spoke to GI, Dr. Cherri harmon and he states that he will see the patient. At this time patient will be admitted to the hospital for further workup. Continue on nasal cannula and monitor oxygen saturation. We will transfuse 1 unit packed red blood cells as well. Allergies shellfish derived Allergy (Mild, Verified 05/31/18 22:10) Itching Home medications list reviewed: Yes Home Medications: Albuterol Inhaler [Ventolin Inhaler*] 2 puff IH Q6HP PRN 05/31/18 Bumetanide [Bumex] 1 tab PO BID 05/31/18 Ergocalciferol (Vitamin D2) [Vitamin D2] 1 cap PO EVERY 7TH DAY 05/31/18 Folic Acid/Multivits-Min [Adult Multivitamin Gummies] 0.8 mg PO DAILY 05/31/18 Hydralazine [Apresoline*] 50 mg PO BID 05/31/18 Insulin Glargine Human [Lantus*] 10 units SQ BEDTIME 05/31/18 Insulin Lispro [Humalog] 5 units SQ TID* 05/31/18 Isosorbide Mononitrate [Isosorbide Mononitrate ER] 1 tab PO DAILY 05/31/18 Metoprolol Tartrate 1 tab PO BID 05/31/18 Mometasone Furoate [Asmanex] 50 mcg IH BID 05/31/18 Nifedipine [Nifedipine ER] 1 tab PO BID 05/31/18 Pantoprazole [Protonix Tab*] 1 tab PO DAILY 05/31/18 Sevelamer Carbonate [Renvela*] 1 tab PO TID 05/31/18 Spironolactone [Aldactone*] 1 tab PO DAILY 05/31/18 - Past Medical/Surgical History Diabetic: Yes -: Diabetic -: Seizures -: Stroke -: Prev seizure 2 yrs ago -: Asthma -: PE 12/2015 -: Renal Disease -: Hyperlipidemia -: Tubal ligation -: c section x 2 - Family History Mother Medical History: Hypertension - Social History Alcohol use: Yes CD- Drugs: No Caffeine use: Yes Place of Residence: Home Review of Systems 10-point ROS is otherwise unremarkable General: Weakness, Malaise Respiratory: Shortness of Breath, SOB with Excertion Cardiovascular: Orthopnea, Edema Neurological: Weakness Physical Examination Temp Pulse Resp BP Pulse Ox 99.8 F 85 20 178/84 H 95 06/01/18 04:00 06/01/18 05:59 06/01/18 04:00 06/01/18 05:59 06/01/18 04:00 General: Cooperative, Mild distress HEENT: Atraumatic, Mucous membr. moist/pink Neck: Supple, JVD distended Respiratory: Diminished, Crackles/rales Cardiovascular: Regular rate/rhythm, No rubs, Edema Gastrointestinal: Soft and benign, Non-distended, No guarding Musculoskeletal: No clubbing, No contractures Integumentary: No rashes, No cyanosis Neurological: Normal speech Laboratory Data (last 24 hrs) 05/31/18 17:52: PT 11.8, INR 1.00 05/31/18 17:52: WBC 8.2, Hgb 8.0 L, Hct 24.1 L, Plt Count 199 05/31/18 17:52: Sodium 142, Potassium 3.3 L, BUN 32 H, Creatinine 3.19 H, Glucose 134 H, Magnesium 1.8, Total Bilirubin 0.3, AST 24, ALT 20, Alkaline Phosphatase 81, Lipase 50 L Imagings Data: EXAM DESCRIPTION: CT - Chest Abd Pelvis Wo Con - 05/31/2018 7:04 pm CLINICAL HISTORY: Chest pain, abdominal pain, difficulty breathing COMPARISON: CT chest December 2015 TECHNIQUE: During dynamic enhancement using 100 milliliters nonionic IV contrast, axial 5 millimeter thick images of the chest, abdomen and pelvis were obtained. Biphasic technique was utilized through the abdomen. No oral contrast administered. All CT scans are performed using dose optimization technique as appropriate and may include automated exposure control or mA/KV adjustment according to patient size. FINDINGS: Airspace consolidation involves the lingula of the left upper lobe accounting for the lateral left chest opacification on earlier chest film. There is minimal patchy opacification in the left lower lobe. Patient has bilateral small pleural effusions. Small nonspecific mediastinal lymph nodes are present. No pneumothorax. No chest wall mass or abnormal axillary lymphadenopathy seen. Small pericardial effusion present. Moderate fluid retention seen in the subcutaneous fatty tissues. The liver, spleen and pancreas show no suspicious findings on noncontrast imaging. Gallbladder and biliary tree are normal. No hydronephrosis or acute renal process on noncontrast imaging. Isodense masses and pyelonephritis are not excluded on a noncontrast study. No adrenal abnormalities. No urinary bladder abnormality. Uterus and ovaries are grossly normal. Detail is limited due to body habitus. No dilated bowel loops or focal ball bowel wall thickening. Minimal amount of ascites adjacent to the liver. No free air or pneumatosis. No hernia, mass or bulky lymphadenopathy. No significant bone or vascular finding. IMPRESSION: Moderate-sized pneumonia fills the lingula of the left upper lobe. There is minimal patchy pneumonia change at the base of the left lower lobe. Small bilateral pleural effusions are present. No acute finding in the peritoneal or retroperitoneal spaces. The patient has a minimal amount of ascites. Pericardial effusion small in size. Moderate severity fluid retention pattern in the subcutaneous fatty tissues. Conclusions/Impression: A/ SHWETHA likely CRS. Hypokalemia. Diastolic CHF, A/C. Acute hypoxic respiratory failure. DM II with CKD. HTN with CKD/ CHF. Anemia in chronic illness. Hypoalbuminemia. Lobar PNA. P/ Continue current POC and Medications. Agree with diuretics. Increase spironolactone. Agree with abx. Bipap as needed. Low sodium diet/ Encourage nutrition. No NSAIDs. AM labs. Daily weight. Thank you kindly for the consultation. Critical Care: Yes (Greater than 30min patient care.)
[2018-06-01 08:37] LABS: Hematocrit 24.9 % (36.0-45.0)
[2018-06-01] MEDS ORDERED: PANTOPRAZOLE 40 MG INJ IVP SCH (09:00)
[2018-06-01] MEDS ORDERED: MOMETASONE FUROATE 50 MCG IH SCH (09:00)
[2018-06-01] MEDS ORDERED: MULTIVITS MIN PO SCH (09:00)
[2018-06-01] MEDS ORDERED: MAGNESIUM SULFATE 1 gm IVPB 1 GM/100 ML BAG IV ONE (09:00)
[2018-06-01] MEDS ORDERED: FOLIC ACID PO SCH (09:00)
[2018-06-01] MEDS ORDERED: POTASSIUM CL SA 10 MEQ TAB PO ONE (09:00)
[2018-06-01] MEDS: SEVELAMER CARBONATE 800 MG TABLET PO SCH ×3 (09:23→22:02)
[2018-06-01] MEDS: BUMETANIDE 1 MG TABLET PO SCH ×2 (09:23→22:01)
[2018-06-01] MEDS: METOPROLOL TAR 50 MG TAB PO SCH ×2 (09:24→22:02)
[2018-06-01] MEDS: ISOSORBIDE MONO SR 60 MG TAB PO SCH (09:24)
[2018-06-01] MEDS: HYDRALAZINE HCL 25 MG TABLET PO SCH ×2 (09:25→22:02)
--- NOTE | 2018-06-01 09:37 | RAD REPORT ---
EXAM DESCRIPTION: RAD - Chest Single View - 05/31/2018 6:05 pm CLINICAL HISTORY: Left-sided chest pain with respiration, dyspnea COMPARISON: November 2017 TECHNIQUE: AP portable chest image was obtained 1759 hours . FINDINGS: Lung volumes are normal. Right lung field is clear. Opacification is present in the latera l mid and lower left lung field. Left hemidiaphragm is obscured. In the acute clinical setting this i s most likely pneumonia. There may well be a pleural fluid component as well. Heart and vasculature a re normal. No measurable pleural effusion and no pneumothorax. No acute bony abnormality seen. No acu te aortic findings suspected. IMPRESSION: Lower left lung field pneumonia.
--- NOTE | 2018-06-01 12:13 | P.CNS ---
Date of Consult: 06/01/18 Reason for Consult: Abnormal chest x-ray Chief Complaint: Dyspnea History of Present Illness: Patient is 43 years of age admitted with sudden onset of right-sided pleuritic chest pain complaints some fever chills productive cough was found to have a pneumonia in the left lung Allergies shellfish derived Allergy (Mild, Verified 05/31/18 22:10) Itching Home Medications: Albuterol Inhaler [Ventolin Inhaler*] 2 puff IH Q6HP PRN 05/31/18 Bumetanide [Bumex] 1 tab PO BID 05/31/18 Ergocalciferol (Vitamin D2) [Vitamin D2] 1 cap PO EVERY 7TH DAY 05/31/18 Folic Acid/Multivits-Min [Adult Multivitamin Gummies] 0.8 mg PO DAILY 05/31/18 Hydralazine [Apresoline*] 50 mg PO BID 05/31/18 Insulin Glargine Human [Lantus*] 10 units SQ BEDTIME 05/31/18 Insulin Lispro [Humalog] 5 units SQ TID* 05/31/18 Isosorbide Mononitrate [Isosorbide Mononitrate ER] 1 tab PO DAILY 05/31/18 Metoprolol Tartrate 1 tab PO BID 05/31/18 Mometasone Furoate [Asmanex] 50 mcg IH BID 05/31/18 Nifedipine [Nifedipine ER] 1 tab PO BID 05/31/18 Pantoprazole [Protonix Tab*] 1 tab PO DAILY 05/31/18 Sevelamer Carbonate [Renvela*] 1 tab PO TID 05/31/18 Spironolactone [Aldactone*] 1 tab PO DAILY 05/31/18 - Past Medical/Surgical History Diabetic: Yes -: Diabetic -: Seizures -: Stroke -: Prev seizure 2 yrs ago -: Asthma -: PE 12/2015 -: Renal Disease -: Hyperlipidemia -: Tubal ligation -: c section x 2 - Family History Mother Medical History: Hypertension - Social History Alcohol use: Yes CD- Drugs: No Caffeine use: Yes Place of Residence: Home Review of Systems General: Weakness Respiratory: Cough, Shortness of Breath, Pleuritic Pain Physical Examination Temp Pulse Resp BP Pulse Ox 97.8 F 82 22 H 143/64 H 91 06/01/18 08:00 06/01/18 10:20 06/01/18 08:00 06/01/18 10:20 06/01/18 08:00 General: Alert, Oriented x3 HEENT: Atraumatic Neck: Supple Respiratory: Crackles/rales (Crackles on the left side) Cardiovascular: Regular rate/rhythm, Edema (Significant lower extremity edema) Neurological: Other (Left side is weak from a stroke) Laboratory Data (last 24 hrs) 05/31/18 17:52: PT 11.8, INR 1.00 05/31/18 17:52: WBC 8.2, Hgb 8.0 L, Hct 24.1 L, Plt Count 199 05/31/18 17:52: Sodium 142, Potassium 3.3 L, BUN 32 H, Creatinine 3.19 H, Glucose 134 H, Magnesium 1.8, Total Bilirubin 0.3, AST 24, ALT 20, Alkaline Phosphatase 81, Lipase 50 L - Problems (1) Pneumonia Current Visit: No Status: Acute Plan: Patient is 43 years of age admitted with sudden onset of left-sided pleuritic chest pain she has a left lung pneumonia with consolidation vital signs are stable blood pressure is satisfactory she is on BiPAP at the time of my evaluation history of tobacco abuse patient has chronic renal failure blood cultures are pending labs reviewed 2D echocardiogram done in November last year shows normal left ventricular function she may have diastolic dysfunction patient is on asthma neck Pneumonia due to unspecified type of organism doubt aspiration unable to change it in the system Qualifiers: Pneumonia type: aspiration pneumonia Aspiration pneumonia type: unspecified Laterality: left Lung location: lower lobe of lung Qualified Code(s): J69.0 - Pneumonitis due to inhalation of food and vomit
[2018-06-01 13:00] LABS: Urine Appearance CLOUDY; Urine Bilirubin NEGATIVE (NEG); Urine Blood 2+ (NEG); Urine Color YELLOW; Urine Glucose 2+ (NEG); Urine Protein 3+ (NEG); Urine Specific Gravity 1.025 (1.005-1.030); Urine Urobilinogen 0.2 mg/dL (0.2-1.0); Urine pH 5.5 (5.0-7.0)
[2018-06-01] MEDS: AZITHROMYCIN 250 MG TAB PO SCH (13:08)
[2018-06-01] MEDS: CEFTRIAXONE/SWI 1gm 1 GM/10 ML SYR IV SCH (13:10)
[2018-06-01 13:14] LABS: Urine Microscopic Reflex ORDER UMIC
--- NOTE | 2018-06-01 13:28 | P.HP ---
Certification for Inpatient Patient admitted to: Inpatient With expected LOS: >2 Midnights Patient will require the following post-hospital care: None Practitioner: I am a practitioner with admitting privileges, knowledge of patient current condition, hospital course, and medical plan of care. Services: Services provided to patient in accordance with Admission requirements found in Title 42 Section 412.3 of the Code of Federal Regulations Patient History Date of Service: 06/01/18 Reason for admission: Dyspnea History of Present Illness: Patient is a 43yo blue admitted to the hospital with shortness of breath. patient with hypoventilation syndrome. She has had a couple of different episodes with shortness of breath. She had an echo done few months ago which revealed a normal ejection fraction. No common on right ventricular pressures. No commenting on impaired relaxation either. Possible diastolic dysfunction. Patient also with questionable pneumonia seen on x-ray. Patient will be admitted to the hospital for further workup. Patient is also anemic which is chronic. She was scheduled to get a capsule endoscopy. She will be seen by GI in the hospital. I spoke to GI, Dr. Cherri harmon and he states that he will see the patient. At this time patient will be admitted to the hospital for further workup. Continue on nasal cannula and monitor oxygen saturation. We will transfuse 1 unit packed red blood cells as well. Allergies shellfish derived Allergy (Mild, Verified 05/31/18 22:10) Itching Home Medications: RX: Albuterol Inhaler [Ventolin Inhaler*] 2 puff IH Q6HP PRN 05/31/18 RX: Bumetanide [Bumex] 1 tab PO BID 05/31/18 RX: Ergocalciferol (Vitamin D2) [Vitamin D2] 1 cap PO EVERY 7TH DAY 05/31/18 RX: Folic Acid/Multivits-Min [Adult Multivitamin Gummies] 0.8 mg PO DAILY RX: Hydralazine [Apresoline*] 50 mg PO BID 05/31/18 RX: Insulin Glargine Human [Lantus*] 10 units SQ BEDTIME 05/31/18 RX: Insulin Lispro [Humalog] 5 units SQ TID* 05/31/18 RX: Isosorbide Mononitrate [Isosorbide Mononitrate ER] 1 tab PO DAILY 05/31/18 RX: Metoprolol Tartrate 1 tab PO BID 05/31/18 RX: Mometasone Furoate [Asmanex] 50 mcg IH BID 05/31/18 RX: Nifedipine [Nifedipine ER] 1 tab PO BID 05/31/18 RX: Pantoprazole [Protonix Tab*] 1 tab PO DAILY 05/31/18 RX: Sevelamer Carbonate [Renvela*] 1 tab PO TID 05/31/18 Spironolactone [Aldactone*] 1 tab PO DAILY 05/31/18 - Past Medical/Surgical History Has patient received pneumonia vaccine in the past: No Diabetic: Yes -: Diabetic -: Seizures -: Stroke -: Prev seizure 2 yrs ago -: Asthma -: PE 12/2015 -: Renal Disease -: Hyperlipidemia -: Tubal ligation -: c section x 2 - Family History Mother Medical History: Hypertension - Social History Alcohol use: Yes CD- Drugs: No Caffeine use: Yes Place of Residence: Home Review of Systems 10-point ROS is otherwise unremarkable Physical Examination - Vital Signs Temperature: 97.8 F Blood Pressure: 143/64 Pulse: 82 Respirations: 22 Pulse Ox (%): 91 - Physical Exam General: Alert, In no apparent distress, Oriented x3 HEENT: Atraumatic, PERRLA, Mucous membr. moist/pink, EOMI, Sclerae nonicteric Neck: Supple, 2+ carotid pulse no bruit, No LAD, Without JVD or thyroid abnormality Respiratory: Expiratory wheezes, Rhonchi/gurgles Cardiovascular: Regular rate/rhythm, Normal S1 S2 Gastrointestinal: Normal bowel sounds, Soft and benign, Non-distended, No tenderness Musculoskeletal: No clubbing, No swelling, No tenderness Integumentary: No rashes Neurological: Normal gait, Normal speech, Normal strength at 5/5 x4 extr, Normal tone, Normal affect Lymphatics: No axilla or inguinal lymphadenopathy - Studies Laboratory Data (last 24 hrs) 05/31/18 17:52: PT 11.8, INR 1.00 05/31/18 17:52: WBC 8.2, Hgb 8.0 L, Hct 24.1 L, Plt Count 199 05/31/18 17:52: Sodium 142, Potassium 3.3 L, BUN 32 H, Creatinine 3.19 H, Glucose 134 H, Magnesium 1.8, Total Bilirubin 0.3, AST 24, ALT 20, Alkaline Phosphatase 81, Lipase 50 L Assessment & Plan - Problems (Diagnosis) (1) Acute renal failure Current Visit: No Status: Acute (2) Diastolic heart failure Current Visit: No Status: Acute Qualifiers: Heart failure chronicity: acute on chronic Qualified Code(s): I50.33 - Acute on chronic diastolic (congestive) heart failure (3) Pneumonia Current Visit: No Status: Acute Qualifiers: Pneumonia type: aspiration pneumonia Aspiration pneumonia type: unspecified Laterality: left Lung location: lower lobe of lung Qualified Code(s): J69.0 - Pneumonitis due to inhalation of food and vomit (4) Anemia Current Visit: No Status: Chronic Qualifiers: Anemia type: iron deficiency Iron deficiency anemia type: unspecified iron deficiency Qualified Code(s): D50.9 - Iron deficiency anemia, unspecified (5) Diabetes mellitus Onset Date: 11/12/17 Current Visit: No Status: Chronic Qualifiers: Diabetes mellitus type: type 2 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 insulin 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: with penitentiary use Diabetes mellitus complication status: with skin complications Diabetes mellitus complication detail: with other skin complication Qualified Code(s): E11.628 - Type 2 diabetes mellitus with other skin complications; Z79.4 - [facility] (current) use of insulin (6) GERD (gastroesophageal reflux disease) Current Visit: No Status: Chronic Qualifiers: Esophagitis presence: esophagitis presence not specified Qualified Code(s) : K21.9 - Gastro-esophageal reflux disease without esophagitis (7) Hypertension Current Visit: No Status: Chronic Qualifiers: Hypertension type: essential hypertension Qualified Code(s): I10 - Essential (primary) hypertension (8) Morbid obesity Current Visit: No Status: Chronic - Plan 1. Echocardiogram has been reviewed and patient with normal ejection fraction. 2. Transfuse 1 unit packed red blood cells and diurese 3. strict blood pressure control and resume home blood pressure meds 4. Gastroenterology, Nephrology, and Pulmonary consultation 5. Gently diuresis 6. Strict I's and O's 7. Repeat CXR 8. Daily weights 9. Education regarding diet and treatment of congestive heart failure 10. BiPAP support 11. if respiratory status worsens ABGs 12. await CT scan report 13. GI DVT prophylaxis Discharge Plan: Home Plan to discharge in: Greater than 2 days - Advance Directives Does patient have a Living Will: No Does patient have a Durable POA for Healthcare: No - Code Status/Comfort Care Code Status Assessed: Yes Code Status: Full Code Critical Care: No Time Spent Managing PTS Care (In Minutes): 60
[2018-06-01 14:06] LABS: Urine Amorphous Sediment 2+ /HPF (NONE SEEN); Urine Bacteria <20 /HPF (<20); Urine Coarse Granular Casts >10 /LPF (NONE SEEN); Urine Culture Reflex Order NOT NEEDED; Urine Mucus 2+ /HPF (NONE SEEN)
--- NOTE | 2018-06-01 14:29 | P.PN ---
Subjective Date of Service: 06/01/18 Chief Complaint: Dyspnea Patient seen and examined at bedside with RN. Chart reviewed. Case discussed with pulmonology and nephrology at this time. Patient continues to be on BiPAP. Feels better than before. Review of Systems 10-point ROS is otherwise unremarkable Physical Examination - Vital Signs Temperature: 97.8 F Blood Pressure: 143/64 Pulse: 82 Respirations: 22 Pulse Ox (%): 91 - Physical Exam General: In no apparent distress, Mild distress, Obese, Other (Currently on BiPAP) HEENT: Atraumatic, PERRLA, EOMI Neck: Supple, JVD not distended Respiratory: Normal air movement, Expiratory wheezes, Inspiratory wheezes Cardiovascular: Regular rate/rhythm, Normal S1 S2 Gastrointestinal: Normal bowel sounds, No tenderness Musculoskeletal: No tenderness Integumentary: No rashes Neurological: Normal speech, Normal tone, Normal affect Lymphatics: No axilla or inguinal lymphadenopathy - Studies Laboratory Data (last 24 hrs) 05/31/18 17:52: PT 11.8, INR 1.00 05/31/18 17:52: WBC 8.2, Hgb 8.0 L, Hct 24.1 L, Plt Count 199 05/31/18 17:52: Sodium 142, Potassium 3.3 L, BUN 32 H, Creatinine 3.19 H, Glucose 134 H, Magnesium 1.8, Total Bilirubin 0.3, AST 24, ALT 20, Alkaline Phosphatase 81, Lipase 50 L Medications List Reviewed: Yes Assessment And Plan - Current Problems (Diagnosis) (1) Acute respiratory distress Current Visit: Yes Status: Acute Plan: Acute respiratory distress most likely secondary to pneumonia versus worsening of hypoventilation syndrome. -currently patient on BiPAP. Will continue that here in the hospital continuously. -we will try to wean her off of BiPAP -pulmonology consulted. Appreciated recommendations at this time (2) Pneumonia Current Visit: No Status: Acute Plan: Left lower lobe pneumonia on chest x-ray. 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: with predatory animal exterminator use Diabetes mellitus complication status: with skin complications Diabetes mellitus complication detail: with other skin complication Qualified Code(s): E11.628 - Type 2 diabetes mellitus with other skin complications; Z79.4 - [facility] (current) use of insulin (4) GERD (gastroesophageal reflux disease) Current Visit: No Status: Chronic Qualifiers: Esophagitis presence: esophagitis presence not specified Qualified Code(s) : K21.9 - Gastro-esophageal reflux disease without esophagitis (5) History of pulmonary embolism Current Visit: No Status: Chronic (6) Hypertension Current Visit: No Status: Chronic Qualifiers: Hypertension type: essential hypertension Qualified Code(s): I10 - Essential (primary) hypertension (7) Morbid obesity Current Visit: No Status: Chronic (8) Diastolic heart failure Current Visit: No Status: Chronic Qualifiers: Heart failure chronicity: chronic Qualified Code(s): I50.32 - Chronic diastolic (congestive) heart failure Discharge Plan: Home Plan to discharge in: Greater than 2 days - Code Status/Comfort Care Code Status Assessed: Yes Critical Care: No
[2018-06-01] MEDS: SPIRONOLACTONE 25 MG TABLET PO SCH (15:49)
[2018-06-01] MEDS: INSULIN GLARGINE 100 UNITS/ML SQ SCH (21:00)
[2018-06-01] MEDS ORDERED: METOPROLOL TAR 50 MG TAB PO SCH (22:54)
--- NOTE | 2018-06-02 06:58 | EKG ---
Test Date: 2018-06-01 Test Time: 15:53:11 Peripheral Vascular Tech: [facility] MEASUREMENT RESULTS: Intervals: Rate: 82 IN: 152 QRSD: 82 QT: 400 QTc: 467 [place]: P: 54 IN: 152 QRS: 87 T: 44 INTERPRETIVE STATEMENTS: Normal sinus rhythm Low voltage QRS Borderline ECG Compared to ECG 05/31/2018 17:00:04 Low QRS voltage now present Myocardial infarct finding no longer present Electronically Signed On 06-02-18 06:56:14 GLOVE TAGGER by Tate Jaramillo
[2018-06-02] MEDS: INSULIN LISPRO 100 UNIT/1 ML SQ SCH ×3 (07:30→16:30)
[2018-06-02 07:58] LABS: Potassium 3.7 mmol/L (3.5-5.1)
[2018-06-02] MEDS ORDERED: POTASSIUM CL SA 10 MEQ TAB PO ONE (08:03)
[2018-06-02] MEDS: NIFEDIPINE XL 60 MG TABLET PO SCH (09:00)
[2018-06-02] MEDS: SPIRONOLACTONE 25 MG TABLET PO SCH (09:00)
[2018-06-02] MEDS: HYDRALAZINE HCL 25 MG TABLET PO SCH (09:00)
[2018-06-02] MEDS: ISOSORBIDE MONO SR 60 MG TAB PO SCH (09:00)
[2018-06-02] MEDS: CEFTRIAXONE/SWI 1gm 1 GM/10 ML SYR IV SCH (09:12)
[2018-06-02] MEDS: AZITHROMYCIN 250 MG TAB PO SCH (09:13)
[2018-06-02] MEDS: BUMETANIDE 1 MG TABLET PO SCH (09:14)
[2018-06-02] MEDS: SEVELAMER CARBONATE 800 MG TABLET PO SCH ×3 (09:14→20:32)
[2018-06-02] MEDS: METOPROLOL TAR 50 MG TAB PO SCH ×2 (09:16→20:39)
[2018-06-02] MEDS: PANTOPRAZOLE 40MG TABLET PO SCH (09:17)
[2018-06-02] MEDS: HYDROCODONE/APAP 10/325 TAB PO PRN ×2 (09:20→21:45)
[2018-06-02] MEDS: MULTIVITAMIN TAB PO SCH (09:21)
[2018-06-02 10:20] LABS: Arterial Blood Carboxyhemoglob 1.2 % (0-1.5); Blood Gas Oxyhemoglobin 82.2 % (94-97); Blood O2 Saturation 83.8 % (92-98.5)
--- NOTE | 2018-06-02 11:02 | RAD REPORT ---
EXAM DESCRIPTION: RAD - Chest Single View - 06/02/2018 10:56 am CLINICAL HISTORY: sob Chest pain. COMPARISON: Chest Single View dated 05/31/2018; Chest Single View dated 12/03/2017; Chest Pa And Lat ( 2 Views) dated 11/15/2017; Chest Pa And Lat (2 Views) dated 11/14/2017 FINDINGS: Portable technique limits examination quality. Since the comparative study, there has been moderate worsening in lung aeration, with progression in the medial right lung base opacity and moderate progression in the left hemithorax airspace opacity. The heart is mildly enlarged. No displaced fractures. IMPRESSION: Moderate worsening in lung aeration since 05/31/2018 study.
--- NOTE | 2018-06-02 11:41 | P.PN ---
Subjective Date of Service: 06/02/18 Chief Complaint: Respiratory failure Patient's condition has deteriorated she was transferred to the floor sats were in 80% despite being on 100% oxygen chest x-ray shows a progression of the pneumonia on the left lung she is very alert responsive cooperative unable to stay off the BiPAP still has some chest discomfort Review of Systems is unable to be obtained Physical Examination - Vital Signs Temperature: 98.0 F Blood Pressure: 108/54 Pulse: 76 Respirations: 25 Pulse Ox (%): 84 - Physical Exam General: Alert, Oriented x3, Moderate distress Respiratory: Crackles/rales (Crackles on the left side) Cardiovascular: No edema, Normal S1 S2 - Studies Microbiology Data (last 24 hrs): 05/31/18 12:10 Clean Catch Urine Joice Count - Final >100,000 CFU/ML. 05/31/18 12:10 Clean Catch Urine - Final Medications List Reviewed: Yes Assessment & Plan - Problems (Diagnosis) (1) Pneumonia Current Visit: No Status: Acute Plan: Patient has progression of pneumonia on the left side Qualifiers: Pneumonia type: due to unspecified organism Laterality: left Lung location: lower lobe of lung Qualified Code(s): J18.1 - Lobar pneumonia, unspecified organism (2) Respiratory failure Current Visit: Yes Status: Acute Plan: Patient is in no respiratory failure requiring 100% oxygen on high levels of BiPAP as transfer to the ICU chest x-ray shows progression of pneumonia continue with high levels of BiPAP titrate sat to 90% repeat ABGs patient has chronic renal failure blood cultures are so far negative I have added IV levofloxacin Dc Rocephin Qualifiers: Chronicity: acute
[2018-06-02] MEDS ORDERED: FUROSEMIDE 40 MG/4 ML VIAL IV ONE (11:58)
[2018-06-02] MEDS ORDERED: Levofloxacin500mg IV 500 MG/100 ML BAG IV SCH (12:00)
[2018-06-02 12:03] LABS: Arterial Blood Carboxyhemoglob 1.3 % (0-1.5); Blood Gas Oxyhemoglobin 86.9 % (94-97); Blood O2 Saturation 88.6 % (92-98.5)
[2018-06-02] MEDS ORDERED: FUROSEMIDE 100 MG in NA CHLORIDE 0.9% 90 ML IV SCH (13:00)
[2018-06-02] MEDS: ALBUMIN HUMAN 25% 100 ML IV SCH ×2 (14:36→20:39)
--- NOTE | 2018-06-02 17:10 | P.PN ---
Subjective Date of Service: 06/02/18 Chief Complaint: Respiratory failure Patient seen and examined at bedside with RN. Chart reviewed. Case discussed with pulmonology and nephrology at this time. Overnight patient became acutely ill. Was transferred to the ICU for acute respiratory failure. Kept on BiPAP. Did well overall after transfer to the ICU and 1 dose of lasix Review of Systems 10-point ROS is otherwise unremarkable Physical Examination - Vital Signs Temperature: 98.0 F Blood Pressure: 128/71 Pulse: 67 Respirations: 26 Pulse Ox (%): 98 - Physical Exam General: In no apparent distress, Severe distress HEENT: Atraumatic, PERRLA, EOMI Neck: Supple, JVD not distended Respiratory: Normal air movement, Expiratory wheezes, Inspiratory wheezes Cardiovascular: Regular rate/rhythm, Normal S1 S2 Gastrointestinal: Normal bowel sounds, No tenderness Musculoskeletal: No tenderness Integumentary: No rashes Neurological: Normal speech, Normal tone, Normal affect Lymphatics: No axilla or inguinal lymphadenopathy - Studies Microbiology Data (last 24 hrs): 05/31/18 12:10 Clean Catch Urine [place] Count - Final >100,000 CFU/ML. 05/31/18 12:10 Clean Catch Urine - Final Medications List Reviewed: Yes Assessment And Plan - Current Problems (Diagnosis) (1) Acute respiratory distress Current Visit: Yes Status: Acute Plan: Acute respiratory distress most likely secondary to pneumonia versus worsening of hypoventilation syndrome. Acute Worsening this AM. -currently patient on BiPAP. Will continue that here in the hospital continuously. -we will try to wean her off of BiPAP when tolerating -pulmonology consulted. Appreciated recommendations at this time (2) Pneumonia Current Visit: No Status: Acute Plan: Left lower lobe pneumonia on chest x-ray. -currently on IV antibiotics -sputum culture and blood culture pending at this time -pulmonology consulted appreciated recommendations at this time Qualifiers: Pneumonia type: due to unspecified organism Laterality: left Lung location: lower lobe of lung Qualified Code(s): J18.1 - Lobar pneumonia, unspecified organism (3) Diastolic heart failure Current Visit: No Status: Acute Plan: acute on chronic Diastolic HF with Volume Overload. -Currently on started IV lasix ggt -ECHO with Grade 2 Diastolic HF -Will continue to monitor closely Qualifiers: Heart failure chronicity: acute on chronic Qualified Code(s): I50.33 - Acute on chronic diastolic (congestive) heart failure (4) Diabetes mellitus Onset Date: 11/12/17 Current Visit: No Status: Chronic Qualifiers: Diabetes mellitus type: type 2 Diabetes mellitus halfway insulin use: with halfway use Diabetes mellitus complication status: with skin complications Diabetes mellitus complication detail: with other skin complication Qualified Code(s): E11.628 - Type 2 diabetes mellitus with other skin complications; Z79.4 - shelter (current) use of insulin (5) GERD (gastroesophageal reflux disease) Current Visit: No Status: Chronic Qualifiers: Esophagitis presence: esophagitis presence not specified Qualified Code(s) : K21.9 - Gastro-esophageal reflux disease without esophagitis (6) History of pulmonary embolism Current Visit: No Status: Chronic (7) Hypertension Current Visit: No Status: Chronic Qualifiers: Hypertension type: essential hypertension Qualified Code(s): I10 - Essential (primary) hypertension (8) Morbid obesity Current Visit: No Status: Chronic Discharge Plan: Home Plan to discharge in: Greater than 2 days - Code Status/Comfort Care Code Status Assessed: Yes Critical Care: No
--- NOTE | 2018-06-02 18:46 | PN ---
Date of Progress Note: 06/02/2018 Subjective: The patient was seen and examined. The patient remains on BiPAP. She has been transfer red to the ICU for worsening respiratory distress and she is having a hard time breathing. She is on BiPAP and is barely able to keep her oxygen saturations above 90%. She has been given some IV Lasix 40 mg. Physical Examination: Vital Signs: Showing temperature of 98, pulse rate of 71, respiratory rate of 25. She is on BiPAP. Blood pressure 117/66. General: She is an obese female, in [id number]-gw-tegrkjix respiratory distress, on BiPAP. HEENT: Atraumatic head. JVD could not be assessed. Lungs: Auscultation of the lungs revealed bilateral equal air entry anteriorly with diminished breat h sounds at bases. Abdomen: Obese, nontender. Extremities: Anasarca was noted. Laboratory Data: Showing creatinine worsening to 3.7, sodium of 141, potassium of 3.7, chloride of 1 10, BUN of 45. CBC showing hemoglobin of 8.2, hematocrit of 24.9. Current Medications: Include Lasix 40 mg one-time dose, hydrocodone p.r.n. for pain. Insulin lispro sliding scale, Levaquin 250 mg every 24 hours, metoprolol 100 mg b.i.d., nifedipine, spironolactone 25 mg a day, and Renvela 800 mg t.i.d. Impression: 1.Acute on chronic renal insufficiency with worsening renal function secondary to underlying cardior enal syndrome versus acute tubular necrosis. The patient's renal function has significantly worsened today. However, we will need to continue with diuretics as her respiratory status is worsening and will need diuresis at this time. Chest x-ray done this morning is showing moderate worsening of the lung aeration compared to 2 days ago. She possibly could have a pneumonia, but will need further diu resis to prevent her from getting treated. Hence, I will go ahead and get her started on Lasix drip at 5 mg/hour. Also, she is on spironolactone, which I will stop to prevent any further worsening of renal function and other antihypertensives have been discontinued as well. 2.Respiratory failure. The patient's antibiotic coverage has been broadened. Will possibly need to broaden further to prevent further worsening of her respiratory status. 3.Hypertension, currently on multiple medications, which I will discontinue and continue just the me toprolol at this time. 4.Chronic anemia, stable. 5.Chronic diastolic heart failure. 6.Morbid obesity with hypoventilation syndrome. Plan: The patient is overall doing significantly worse. Will need further diuresis and monitoring o f renal function. We will go ahead and get her started on Lasix drip and monitor her urine output an d renal function closely. I have discussed the case with the patient's father who was at bedside and all questions have been answered. Also because of severe hypoalbuminemia, we will go ahead and get her started on albumin every 8 hours to also improve renal perfusion as well. VV/MODL Voice ID: [id number] Report ID: [id number]
[2018-06-02] MEDS: INSULIN GLARGINE 100 UNITS/ML SQ SCH (20:32)
[2018-06-03] MEDS: HYDROCODONE/APAP 10/325 TAB PO PRN (03:05)
[2018-06-03] MEDS: ALBUMIN HUMAN 25% 100 ML IV SCH ×3 (05:08→21:10)
[2018-06-03 07:26] LABS: Phosphorus 6.3 mg/dL (2.5-4.9)
[2018-06-03] MEDS: PANTOPRAZOLE 40MG TABLET PO SCH (07:30)
[2018-06-03] MEDS: INSULIN LISPRO 100 UNIT/1 ML SQ SCH ×3 (07:30→16:30)
[2018-06-03] MEDS: FUROSEMIDE 100 MG in NA CHLORIDE 0.9% 90 ML IV SCH (07:37)
[2018-06-03 07:39] LABS: Absolute Lymphocytes (CBC) 0.8 K/uL (0.7-4.9); Absolute Monocytes 0.1 K/uL (0.1-1.3); Absolute Neutrophil 8.7 K/uL (1.8-8.0); Basophils % 0.3 % (0-1.3); Eosinophils % 0.4 % (0-4.4); Hematocrit 26.4 % (36.0-45.0); Lymphocytes % 7.9 % (15.3-44.8); MPV 10.9 fL (7.6-11.3); Monocytes % 1.3 % (3.3-12.3); RBC Red Blood Cell Count 2.97 M/uL (3.86-4.86)
[2018-06-03] MEDS: MULTIVITAMIN TAB PO SCH (09:00)
[2018-06-03] MEDS: SEVELAMER CARBONATE 800 MG TABLET PO SCH ×3 (09:00→20:12)
[2018-06-03] MEDS: METOPROLOL TAR 50 MG TAB PO SCH ×2 (09:00→21:00)
--- NOTE | 2018-06-03 09:03 | RAD REPORT ---
EXAM DESCRIPTION: [place] Single View06/03/2018 8:46 am CLINICAL HISTORY: Shortness of breath COMPARISON: June 02 FINDINGS: No significant change in the left lung opacities. Mild worsening in the right lung opacities. The heart is enlarged. Small bilateral pleural effusions IMPRESSION: No significant change in the left and mild worsening in the right pulmonary opacities wh ich may represent pneumonia
[2018-06-03 09:19] LABS: Arterial Blood Carboxyhemoglob 1.3 % (0-1.5); Blood Gas Oxyhemoglobin 83.5 % (94-97); Blood O2 Saturation 85.2 % (92-98.5)
[2018-06-03] MEDS ORDERED: RSI MEDICATION KIT IV ONE (09:38)
[2018-06-03] MEDS ORDERED: PROPOFOL 1,000 MG/100 ML VIAL IV ONE (09:40)
[2018-06-03] MEDS ORDERED: MIDAZOLAM HCL 2 MG/2 ML INJ ONE (09:42)
[2018-06-03] MEDS: HALOPERIDOL LACT 5 MG/ML INJ IV PRN (10:02)
[2018-06-03] MEDS: PROPOFOL 1,000 MG/100 ML VIAL IV PRN ×6 (10:02→23:21)
[2018-06-03] MEDS: FENTANYL CITR 100 MCG/2 ML IV PRN ×2 (10:13→21:08)
[2018-06-03 11:09] LABS: Urine Appearance TURBID; Urine Bilirubin NEGATIVE (NEG); Urine Blood 1+ (NEG); Urine Color YELLOW; Urine Glucose 1+ (NEG); Urine Protein 3+ (NEG); Urine Urobilinogen 0.2 mg/dL (0.2-1.0); Urine pH 5.5 (5.0-7.0)
--- NOTE | 2018-06-03 11:12 | RAD REPORT ---
EXAM DESCRIPTION: RAD - Chest Single View - 06/03/2018 10:37 am CLINICAL HISTORY: Feeding tube placement COMPARISON: None. TECHNIQUE: AP portable chest image was obtained 1017 hours . FINDINGS: Single view examination was obtained of the lower chest and upper abdomen following feedin g tube placement. Feeding tube is in place with the tip well below the diaphragm. Tip is in the left mid abdomen. This would correspond to positioning within the body of the stomach.
[2018-06-03 11:13] LABS: Urine Microscopic Reflex ORDER UMIC
--- NOTE | 2018-06-03 11:15 | RAD REPORT ---
EXAM DESCRIPTION: RAD - Chest Single View - 06/03/2018 10:36 am CLINICAL HISTORY: Intubation COMPARISON: June 03 TECHNIQUE: AP portable chest image was obtained 1017 hours . FINDINGS: Upright portable chest was obtained and has motion degradation. This results in blurring o f the ET tube and feeding tube. Tip of the ET tube is T4 level top of the aortic arch. This is well a opal the kin. Feeding tube extends below the diaphragm. Extensive airspace opacification is present in the medial right lung base and throughout the mid and lower left lung field. Lung parenchymal opacification is stable from examination earlier in the day. Heart is mostly obscured but appears stable from earlier in the day. IMPRESSION: ET tube in good position. Tip is T4 level top of the aortic arch. This is well above the kin. Feeding tube extends below the diaphragm. Extensive left greater than right airspace opacification stable from exam earlier in the day.
[2018-06-03 11:23] LABS: Urine Amorphous Sediment 3+ /HPF (NONE SEEN); Urine Bacteria <20 /HPF (<20); Urine Culture Reflex Order NOT NEEDED; Urine Mucus 2+ /HPF (NONE SEEN)
[2018-06-03] MEDS ORDERED: Pharmacy Consult 1 EA XX PRN (12:21)
--- NOTE | 2018-06-03 12:24 | P.PN ---
Subjective Date of Service: 06/03/18 Chief Complaint: Respiratory failure Patient's condition is the worse she is not improving on 100% BiPAP i.e. levels of EPAP still very hypoxic chest x-ray looks worse patient was subsequently intubated is currently on a ventilator Review of Systems is unable to be obtained Physical Examination - Vital Signs Temperature: 98.9 F Blood Pressure: 135/64 Pulse: 76 Respirations: 28 Pulse Ox (%): 96 - Physical Exam General: Other (Unresponsive on propofol) Neck: Supple Respiratory: Diminished Cardiovascular: No edema, Regular rate/rhythm - Studies Microbiology Data (last 24 hrs): 05/31/18 12:10 Clean Catch Urine [place] Count - Final >100,000 CFU/ML. 05/31/18 12:10 Clean Catch Urine - Final Medications List Reviewed: Yes Assessment & Plan - Problems (Diagnosis) (1) Pneumonia Current Visit: No Status: Acute Plan: Patient appears to have a progression of bilateral infiltrates suspect pneumonia I have added vancomycin Qualifiers: Pneumonia type: due to unspecified organism Laterality: left Lung location: lower lobe of lung Qualified Code(s): J18.1 - Lobar pneumonia, unspecified organism (2) Respiratory failure Current Visit: Yes Status: Acute Plan: Patient is on ventilator bilateral pulmonary infiltrates sputum cultures ordered patient was started on diuretics on tube feeds I have ordered an ultrasound of the left chest patient is not stable for a CT scan not appear to be septic she may have a massive effusion on the left side patient has chronic renal insufficiency Qualifiers: Chronicity: acute
[2018-06-03 12:31] LABS: Arterial Blood Carboxyhemoglob 1.4 % (0-1.5); Blood O2 Saturation 85.8 % (92-98.5)
--- NOTE | 2018-06-03 12:50 | P.PN ---
Subjective Date of Service: 06/03/18 Chief Complaint: Respiratory failure Patient seen and examined at bedside with RN. Chart reviewed. Case discussed with pulmonology and nephrology at this time. Pt still continues to be Hypoxic on BIPAP. DW with pulmonology regarding Intubation. Will consult Anesthesiologist Review of Systems 10-point ROS is otherwise unremarkable Physical Examination - Vital Signs Temperature: 98.9 F Blood Pressure: 135/64 Pulse: 76 Respirations: 28 Pulse Ox (%): 96 - Physical Exam General: In no apparent distress, Moderate distress HEENT: Atraumatic, PERRLA, EOMI Neck: Supple, JVD not distended Respiratory: Normal air movement, Crackles/rales, Expiratory wheezes, Inspiratory wheezes Cardiovascular: Regular rate/rhythm, Normal S1 S2 Gastrointestinal: Normal bowel sounds, No tenderness Musculoskeletal: No tenderness Integumentary: No rashes Neurological: Normal speech, Normal tone, Normal affect Lymphatics: No axilla or inguinal lymphadenopathy - Studies Microbiology Data (last 24 hrs): 05/31/18 12:10 Clean Catch Urine [place] Count - Final >100,000 CFU/ML. 05/31/18 12:10 Clean Catch Urine - Final Medications List Reviewed: Yes Assessment And Plan - Current Problems (Diagnosis) (1) Acute respiratory distress Current Visit: Yes Status: Acute Plan: Now with Acute Respiratory Arrest. Most Likely secondary to pneumonia versus worsening of hypoventilation syndrome. -Failed BIPAP. Will intubate patient -ABG and xray post intubation. -pulmonology consulted. Appreciated recommendations at this time (2) Pneumonia Current Visit: No Status: Acute Plan: Left lower lobe pneumonia on chest x-ray. -currently on IV Levaquin -sputum culture and blood culture pending at this time -pulmonology consulted, appreciated recommendations at this time Qualifiers: Pneumonia type: due to unspecified organism Laterality: left Lung location: lower lobe of lung Qualified Code(s): J18.1 - Lobar pneumonia, unspecified organism (3) Diastolic heart failure Current Visit: No Status: Acute Plan: acute on chronic Diastolic HF with Volume Overload. -Currently on started IV lasix ggt. -ECHO with Grade 2 Diastolic HF -Will continue to monitor closely Qualifiers: Heart failure chronicity: acute on chronic Qualified Code(s): I50.33 - Acute on chronic diastolic (congestive) heart failure (4) Acute renal failure Current Visit: No Status: Acute Plan: SHWETHA on CKD. -Acute worsening with BUN.CR getting worse today -Nephrology consulted. 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 (6) GERD (gastroesophageal reflux disease) Current Visit: No Status: Chronic Qualifiers: Esophagitis presence: esophagitis presence not specified Qualified Code(s) : K21.9 - Gastro-esophageal reflux disease without esophagitis (7) History of pulmonary embolism Current Visit: No Status: Chronic (8) Hypertension Current Visit: No Status: Chronic Qualifiers: Hypertension type: essential hypertension Qualified Code(s): I10 - Essential (primary) hypertension (9) Morbid obesity Current Visit: No Status: Chronic (10) Hyperventilation syndrome Current Visit: Yes Status: Chronic Discharge Plan: Other Plan to discharge in: Greater than 2 days - Code Status/Comfort Care Code Status Assessed: Yes Critical Care: Yes
[2018-06-03] MEDS ORDERED: VANCOMYCIN 2 GM in NA CHLORIDE 0.9% 500 ML IVPB SCH (13:00)
--- NOTE | 2018-06-03 14:01 | RAD REPORT ---
EXAM DESCRIPTION: US - Chest - 06/03/2018 1:51 pm CLINICAL HISTORY: Shortness of breath FINDINGS: A small left pleural effusion is present. IMPRESSION: Small left pleural effusion
[2018-06-03] MEDS ORDERED: ETOMIDATE 20 MG/10 ML VIAL IV ONE (14:49)
[2018-06-03] MEDS ORDERED: SUCCINYLCHOLINE 20 MG/ML (10 ML) IV ONE (14:49)
--- NOTE | 2018-06-03 15:48 | RAD REPORT ---
EXAM DESCRIPTION: RAD - Chest Single View - 06/03/2018 3:30 pm CLINICAL HISTORY: PICC line placement COMPARISON: None. FINDINGS: Portable chest was obtained following placement of a right upper extremity PICC line. The catheter tip is in the distal SVC.
[2018-06-03] MEDS: Levofloxacin 250mg IV 250 MG/50 ML BAG IV SCH (15:54)
[2018-06-03] MEDS ORDERED: FUROSEMIDE 40 MG/4 ML VIAL IV ONE (19:12)
[2018-06-03] MEDS ORDERED: SPIRONOLACTONE 25 MG TABLET PO ONE (20:00)
[2018-06-03] MEDS: CALCITROL 0.25 MCG CAP PO SCH (20:11)
[2018-06-03] MEDS: predniSONE 20 MG TAB PO SCH (20:11)
[2018-06-03] MEDS: INSULIN GLARGINE 100 UNITS/ML SQ SCH (20:36)
--- NOTE | 2018-06-03 22:17 | P.PN ---
Date of Service: 06/03/18 Vital Signs Temp Pulse Resp BP Pulse Ox 98.5 F 64 15 143/67 H 95 06/03/18 16:00 06/03/18 21:00 06/03/18 18:00 06/03/18 21:00 06/03/18 18:00 Medications Acetaminophen (Tylenol -Extra Strength) 500 mg PO Q4HP PRN PRN Reason: Pain scale 2-4 (Mild) Stop: 06/30/18 20:28 Last Admin: 05/31/18 23:03 Dose: 500 mg Albuterol Sulfate (Proventil 0.083% Neb Soln) 2.5 mg NEB Q6HP PRN PRN Reason: SHORTNESS OF BREATH Stop: 06/30/18 20:28 Last Admin: 06/01/18 00:00 Dose: 2.5 mg Calcitriol (Rocaltrol) 0.5 mcg PO DAILY [facility] Stop: 07/03/18 20:01 Last Admin: 06/03/18 20:11 Dose: 0.5 mcg Fentanyl Citrate (Sublimaze) 25 mcg IV Q4HP PRN PRN Reason: Pain scale 8-10 (Severe) Stop: 07/03/18 09:40 Last Admin: 06/03/18 21:08 Dose: 25 mcg Haloperidol Lactate (Haldol) 2 mg IV Q4HP PRN PRN Reason: AGITATION Stop: 07/03/18 09:40 Last Admin: 06/03/18 10:02 Dose: 2 mg Levofloxacin/Dextrose (Levaquin 250mg/50 Ml Ivpb) 250 mg in 50 mls @ 50 mls/hr IV Q24H [facility]; Protocol Stop: 07/03/18 12:01 Last Admin: 06/03/18 15:54 Dose: 50 mls Albumin Human (Albumin 25% 25 Gm) 100 mls @ 100 mls/hr IV Q8H [facility] Stop: 06/04/18 06:29 Last Admin: 06/03/18 21:10 Dose: 100 mls Furosemide 100 mg/ Sodium (Chloride) 100 mls @ 5 mls/hr IV Q20H [facility] Stop: 07/03/18 07:31 Last Admin: 06/03/18 07:37 Dose: 100 mls Propofol (Diprivan) 1,000 mg in 100 mls @ 0 mls/hr IV PRN PRN; Protocol PRN Reason: SEDATION Stop: 07/03/18 09:40 Last Admin: 06/03/18 20:11 Dose: 100 mls Pharmacy Consult (Pharmacy Consult) 1 mls @ 1 mls/hr XX DAILYPRN PRN; Protocol PRN Reason: Vancomycin dose by pharmacy Stop: 07/03/18 12:22 Vancomycin HCl 2 gm/ Sodium (Chloride) 500 mls @ 250 mls/hr IVPB Q48H [facility] Stop: 07/03/18 13:01 Last Admin: 06/03/18 15:55 Dose: 500 mls Insulin Glargine (Lantus) 10 units SQ BEDTIME [facility] Stop: 07/01/18 21:01 Last Admin: 06/03/18 20:36 Dose: Not Given Insulin Human Lispro (Humalog) 5 unit SQ AC [facility] Stop: 07/01/18 07:31 Last Admin: 06/03/18 16:30 Dose: Not Given Ipratropium [place] (Atrovent Neb) 0.5 mg NEB [id number] PRN PRN Reason: SHORTNESS OF BREATH Stop: 07/01/18 02:01 Last Admin: 06/01/18 00:00 Dose: 0.5 mg Metoprolol Tartrate (Lopressor) 100 mg PO BID [facility] Stop: 07/01/18 09:01 Last Admin: 06/03/18 21:00 Dose: Not Given Multivitamins/Minerals (Centrum Tablet) 1 tab PO DAILY [facility] Stop: 07/02/18 09:01 Last Admin: 06/03/18 09:00 Dose: Not Given Ondansetron HCl (Zofran) 4 mg IV Q6HP PRN PRN Reason: NAUSEA / VOMITING Stop: 06/30/18 20:28 Pantoprazole Sodium (Protonix Tab) 40 mg PO ACB [facility] Stop: 07/02/18 07:31 Last Admin: 06/03/18 07:30 Dose: Not Given Prednisone (Deltasone) 20 mg PO BID [facility] Stop: 07/03/18 21:01 Last Admin: 06/03/18 20:11 Dose: 20 mg Sevelamer Carbonate (Renvela) 800 mg PO TID [facility] Stop: 07/01/18 09:01 Last Admin: 06/03/18 20:12 Dose: Not Given Sodium Chloride (Normal Saline Flush) 10 ml IV BID [facility] Stop: 06/30/18 21:01 Last Admin: 06/03/18 21:10 Dose: 10 ml Sodium Chloride (Sodium Chloride 10 Ml Inj) 10 ml IV UD PRN PRN Reason: Diluant Stop: 06/30/18 22:33 Last Admin: 06/01/18 09:27 Dose: 10 ml Microbiology Results 05/31/18 12:10 Clean Catch Urine [place] Count - Final >100,000 CFU/ML. 05/31/18 12:10 Clean Catch Urine - Final 05/31/18 20:00 Blood - Blood Aerobic Blood Culture - Preliminary No growth in 24 hours. 05/31/18 20:00 Blood - Blood Anaerobic Blood Culture - Preliminary No growth in 24 hours. 05/31/18 19:45 Blood - Blood Aerobic Blood Culture - Preliminary No growth in 24 hours. 05/31/18 19:45 Blood - Blood Anaerobic Blood Culture - Preliminary No growth in 24 hours. Assessment/ Plan: Nephrology. No IH/ ROS from the patient due to intubation/ sedation. Case discussed with the nurse. Poor urine output. Vitals, medications, blood work and imaging reviewed in the chart. General: Cooperative, Mild distress HEENT: Atraumatic, Mucous membr. moist/pink Neck: Supple, JVD distended Respiratory: Diminished, Crackles/rales Cardiovascular: Regular rate/rhythm, No rubs, Edema. Anasarca. Gastrointestinal: Soft and benign, Non-distended, No guarding Musculoskeletal: No clubbing, No contractures Integumentary: No rashes, No cyanosis Neurological: Normal speech Greater than 30 minutes patient care. Laboratory Data (last 24 hrs) 05/31/18 17:52: PT 11.8, INR 1.00 05/31/18 17:52: WBC 8.2, Hgb 8.0 L, Hct 24.1 L, Plt Count 199 05/31/18 17:52: Sodium 142, Potassium 3.3 L, BUN 32 H, Creatinine 3.19 H, Glucose 134 H, Magnesium 1.8, Total Bilirubin 0.3, AST 24, ALT 20, Alkaline Phosphatase 81, Lipase 50 L Imagings Data: EXAM DESCRIPTION: CT - Chest Abd Pelvis Wo Con - 05/31/2018 7:04 pm CLINICAL HISTORY: Chest pain, abdominal pain, difficulty breathing COMPARISON: CT chest December 2015 TECHNIQUE: During dynamic enhancement using 100 milliliters nonionic IV contrast, axial 5 millimeter thick images of the chest, abdomen and pelvis were obtained. Biphasic technique was utilized through the abdomen. No oral contrast administered. All CT scans are performed using dose optimization technique as appropriate and may include automated exposure control or mA/KV adjustment according to patient size. FINDINGS: Airspace consolidation involves the lingula of the left upper lobe accounting for the lateral left chest opacification on earlier chest film. There is minimal patchy opacification in the left lower lobe. Patient has bilateral small pleural effusions. Small nonspecific mediastinal lymph nodes are present. No pneumothorax. No chest wall mass or abnormal axillary lymphadenopathy seen. Small pericardial effusion present. Moderate fluid retention seen in the subcutaneous fatty tissues. The liver, spleen and pancreas show no suspicious findings on noncontrast imaging. Gallbladder and biliary tree are normal. No hydronephrosis or acute renal process on noncontrast imaging. Isodense masses and pyelonephritis are not excluded on a noncontrast study. No adrenal abnormalities. No urinary bladder abnormality. Uterus and ovaries are grossly normal. Detail is limited due to body habitus. No dilated bowel loops or focal ball bowel wall thickening. Minimal amount of ascites adjacent to the liver. No free air or pneumatosis. No hernia, mass or bulky lymphadenopathy. No significant bone or vascular finding. IMPRESSION: Moderate-sized pneumonia fills the lingula of the left upper lobe. There is minimal patchy pneumonia change at the base of the left lower lobe. Small bilateral pleural effusions are present. No acute finding in the peritoneal or retroperitoneal spaces. The patient has a minimal amount of ascites. Pericardial effusion small in size. Moderate severity fluid retention pattern in the subcutaneous fatty tissues. Conclusions/Impression: A/ SHWETHA likely ATN. Hypokalemia. Diastolic CHF, A/C. Acute hypoxic respiratory failure. DM II with CKD. HTN with CKD/ CHF. Anemia in chronic illness. Hypoalbuminemia. Anasarca. Lobar PNA. P/ Continue current POC and Medications. Continue Lasix gtt. Give high dose Lasix. Give spironolactone X1. Give calcitriol. Agree with abx. Intubated/ Ventilator support. No NSAIDs. AM labs. Daily weight. Case discussed with the family. May need to consider dialysis in the setting of anasarca, respiratory failure and SHWETHA.
[2018-06-04] MEDS: FENTANYL CITR 100 MCG/2 ML IV PRN ×3 (01:17→21:35)
[2018-06-04] MEDS: PROPOFOL 1,000 MG/100 ML VIAL IV PRN ×8 (02:20→23:31)
[2018-06-04] MEDS: FUROSEMIDE 100 MG in NA CHLORIDE 0.9% 90 ML IV SCH ×2 (03:31→22:57)
[2018-06-04 05:17] LABS: Absolute Lymphocytes (CBC) 0.4 K/uL (0.7-4.9); Absolute Monocytes 0.1 K/uL (0.1-1.3); Absolute Neutrophil 6.6 K/uL (1.8-8.0); Basophils % 0.3 % (0-1.3); Hematocrit 22.1 % (36.0-45.0); Lymphocytes % 5.3 % (15.3-44.8); MPV 11.6 fL (7.6-11.3); Monocytes % 1.8 % (3.3-12.3)
[2018-06-04 05:31] LABS: Albumin 2.4 g/dL (3.4-5.0); Bilirubin Direct 0.1 mg/dL (0-0.2); Bilirubin Total 0.3 mg/dL (0.2-1.0); Magnesium 2.1 mg/dL (1.8-2.4); Phosphorus 6.3 mg/dL (2.5-4.9); Potassium 3.9 mmol/L (3.5-5.1); Protein, Total 5.4 g/dL (6.4-8.2)
[2018-06-04] MEDS: ALBUMIN HUMAN 25% 100 ML IV SCH (05:31)
[2018-06-04 05:37] LABS: Urine Appearance TURBID; Urine Bilirubin NEGATIVE (NEG); Urine Blood 1+ (NEG); Urine Color YELLOW; Urine Glucose TRACE (NEG); Urine Protein 3+ (NEG); Urine Urobilinogen 0.2 mg/dL (0.2-1.0); Urine pH 5.5 (5.0-7.0)
[2018-06-04 05:57] LABS: Blood Morphology Comment NOT SEEN (NOT SEEN); Platelet Estimate DECR; Urine White Blood Cell Casts OK
[2018-06-04 05:57] LABS: Arterial Blood Carboxyhemoglob 1.4 % (0-1.5); Blood Gas Oxyhemoglobin 91.9 % (94-97); Blood O2 Saturation 94.1 % (92-98.5)
[2018-06-04 05:58] LABS: Urine Amorphous Sediment 4+ /HPF (NONE SEEN); Urine Bacteria <20 /HPF (<20); Urine Culture Reflex Order NOT NEEDED; Urine Mucus HEAVY /HPF (NONE SEEN); Urine RBC <5 /HPF (NONE SEEN)
[2018-06-04 05:59] LABS: Urine Waxy Casts >10 /LPF (NONE SEEN)
[2018-06-04 06:00] LABS: Urine Other Components >10 BROAD CAST/LPF (NONE SEEN)
--- NOTE | 2018-06-04 07:28 | RAD REPORT ---
EXAM DESCRIPTION: RAD - Chest Single View - 06/04/2018 7:03 am CLINICAL HISTORY: Pneumonia COMPARISON: June 03 TECHNIQUE: AP portable chest image was obtained 0656 hours . FINDINGS: Lung volumes are stable. Tubes and lines are unchanged. Left upper lung field opacification has shown significant improvement. Left base opacification is not substantially different. Medial right base opacification also not clearly different. There is some m otion degradation present. Heart and vasculature are normal. No measurable pleural effusion and no pneumothorax. No acute bony abnormality seen. No acute aortic findings suspected. IMPRESSION: Partial clearing of left upper lobe infiltrate since prior day study. Bilateral lung base opacification not substantially different.
[2018-06-04] MEDS: PANTOPRAZOLE 40MG TABLET PO SCH (07:30)
[2018-06-04] MEDS: INSULIN LISPRO 100 UNIT/1 ML SQ SCH ×3 (07:30→16:41)
[2018-06-04] MEDS: CALCITROL 0.25 MCG CAP PO SCH (09:00)
[2018-06-04] MEDS: METOPROLOL TAR 50 MG TAB PO SCH ×2 (09:00→21:20)
[2018-06-04] MEDS: MULTIVITAMIN TAB PO SCH (09:00)
[2018-06-04] MEDS: SEVELAMER CARBONATE 800 MG TABLET PO SCH ×2 (09:00→14:00)
[2018-06-04] MEDS: SODIUM CHLORIDE 0.9% 10ML INJ IV PRN (10:49)
[2018-06-04] MEDS: PANTOPRAZOLE 40 MG INJ IVP SCH (10:49)
[2018-06-04] MEDS: predniSONE 20 MG TAB PO SCH (10:49)
[2018-06-04] MEDS: VITAL HP 1,000 ML BOT RTH SCH (10:50)
--- NOTE | 2018-06-04 11:19 | P.PN ---
Subjective Date of Service: 06/04/18 Chief Complaint: Respiratory failure Patient seen and examined at bedside with RN. Chart reviewed. Case discussed with pulmonology and nephrology at this time. Pt now Intubated and sedated. No events overnight. This AM doing well as well. Review of Systems 10-point ROS is otherwise unremarkable Physical Examination - Vital Signs Temperature: 98.1 F Blood Pressure: 161/78 Pulse: 67 Respirations: 21 Pulse Ox (%): 96 - Physical Exam General: In no apparent distress, Other (Intubated and sedated ) HEENT: Atraumatic, PERRLA, EOMI Neck: Supple, JVD distended Respiratory: Normal air movement, Crackles/rales, Rhonchi/gurgles Cardiovascular: Regular rate/rhythm, Normal S1 S2, Edema Gastrointestinal: Normal bowel sounds, No tenderness Musculoskeletal: Swelling Integumentary: No rashes Neurological: Normal speech, Normal tone, Normal affect Lymphatics: No axilla or inguinal lymphadenopathy - Studies Medications List Reviewed: Yes Assessment And Plan - Current Problems (Diagnosis) (1) Acute respiratory distress Current Visit: Yes Status: Acute Plan: Now with Acute Respiratory Arrest. Most Likely secondary to pneumonia versus worsening of hypoventilation syndrome. -Now Intubated and sedated. -pulmonology consulted. Appreciated recommendations at this time -ABG this AM with improvement and xray with improvement as well (2) Pneumonia Current Visit: No Status: Acute Plan: Left lower lobe pneumonia on chest x-ray. -currently on IV Levaquin. Will continue -sputum culture and blood culture pending at this time -pulmonology consulted, appreciated recommendations at this time Qualifiers: Pneumonia type: due to unspecified organism Laterality: left Lung location: lower lobe of lung Qualified Code(s): J18.1 - Lobar pneumonia, unspecified organism (3) Diastolic heart failure Current Visit: No Status: Acute Plan: acute on chronic Diastolic HF with Volume Overload. -Currently started on IV lasix ggt with albumin. -ECHO with Grade 2 Diastolic HF -Will continue to monitor closely Qualifiers: Heart failure chronicity: acute on chronic Qualified Code(s): I50.33 - Acute on chronic diastolic (congestive) heart failure (4) Acute renal failure Current Visit: No Status: Acute Plan: SHWETHA on CKD 2.2 to PNA. -Acute worsening with BUN.CR getting worse today -Nephrology consulted. Appreciated Reccs -On IV lasix ggt and albumin (5) Diabetes mellitus Onset Date: 11/12/17 Current Visit: No Status: Chronic Qualifiers: Diabetes mellitus type: type 2 Diabetes mellitus fdc insulin use: with intermediate frame tender use Diabetes mellitus complication status: with skin complications Diabetes mellitus complication detail: with other skin complication Qualified Code(s): E11.628 - Type 2 diabetes mellitus with other skin complications; Z79.4 - detention (current) use of insulin (6) GERD (gastroesophageal reflux disease) Current Visit: No Status: Chronic Qualifiers: Esophagitis presence: esophagitis presence not specified Qualified Code(s) : K21.9 - Gastro-esophageal reflux disease without esophagitis (7) History of pulmonary embolism Current Visit: No Status: Chronic (8) Hypertension Current Visit: No Status: Chronic Qualifiers: Hypertension type: essential hypertension Qualified Code(s): I10 - Essential (primary) hypertension (9) Morbid obesity Current Visit: No Status: Chronic (10) Hyperventilation syndrome Current Visit: Yes Status: Chronic Discharge Plan: Home Plan to discharge in: Greater than 2 days - Code Status/Comfort Care Code Status Assessed: Yes Critical Care: Yes
[2018-06-04] MEDS: Levofloxacin 250mg IV 250 MG/50 ML BAG IV SCH (12:26)
--- NOTE | 2018-06-04 12:37 | P.PN ---
Subjective Date of Service: 06/04/18 Chief Complaint: Respiratory failure Patient is improving she is alert responsive unable to wean off propofol still on a PEEP of 15 although or FiO2 has been decreased to 40% patient is on Lasix no change in her renal function still has gross anasarca chest x-ray shows an improvement CT scan pending Review of Systems is unable to be obtained Physical Examination - Vital Signs Temperature: 98.1 F Blood Pressure: 161/78 Pulse: 67 Respirations: 21 Pulse Ox (%): 96 - Physical Exam General: Alert, Cooperative Neck: Supple Respiratory: Diminished Cardiovascular: Regular rate/rhythm, Edema (3+ edema) - Studies Medications List Reviewed: Yes Assessment & Plan - Problems (Diagnosis) (1) Pneumonia Current Visit: No Status: Acute Plan: Patient's cultures are negative on broad-spectrum antibiotics chest x-ray still abnormal Qualifiers: Pneumonia type: due to unspecified organism Laterality: left Lung location: lower lobe of lung Qualified Code(s): J18.1 - Lobar pneumonia, unspecified organism (2) Respiratory failure Current Visit: Yes Status: Acute Plan: Patient has respiratory failure on a ventilator FiO2 45% PEEP 15 titrate sat 90- 95% there was an attempt to decrease the PEEP to 10 patient did not tolerate she has some frothy sputum from the event most likely pulmonary edema the she may benefit from dialysis Dc steroids plan to use Ativan fentanyl and try and wean off the propofol Qualifiers: Chronicity: acute
[2018-06-04] MEDS: LORazepam 2 MG/ML VIAL IV PRN ×3 (13:48→20:35)
[2018-06-04] MEDS ORDERED: SODIUM BICARB 325 MG TAB PO ONE ×3 (15:00→22:33)
[2018-06-04] MEDS ORDERED: SPIRONOLACTONE 25 MG TABLET PO SCH (15:00)
[2018-06-04] MEDS ORDERED: VANCOMYCIN 2 GM in NA CHLORIDE 0.9% 500 ML IVPB SCH (18:00)
[2018-06-04 18:38] LABS: Potassium 3.7 mmol/L (3.5-5.1)
[2018-06-04] MEDS ORDERED: ALBUTEROL 2.5 MG/3 ML NEB SOL NEB PRN (19:00)
[2018-06-04] MEDS ORDERED: SPIRONOLACTONE 25 MG TABLET PO ONE (20:00)
[2018-06-04] MEDS: INSULIN GLARGINE 100 UNITS/ML SQ SCH (21:20)
[2018-06-04] MEDS ORDERED: POTASSIUM 25 MEQ EFFERV TAB PO ONE (21:42)
[2018-06-04] MEDS ORDERED: FUROSEMIDE 40 MG/4 ML VIAL IV ONE (21:42)
[2018-06-04] MEDS ORDERED: EPOETIN ALFA 10,000 UNIT/ML SQ ONE (21:47)
--- NOTE | 2018-06-04 21:53 | P.PN ---
Date of Service: 06/04/18 Vital Signs Temp Pulse Resp BP Pulse Ox 98 F 70 20 177/85 H 99 06/04/18 20:00 06/04/18 21:20 06/04/18 21:00 06/04/18 21:20 06/04/18 21:00 Medications Acetaminophen (Tylenol -Extra Strength) 500 mg PO Q4HP PRN PRN Reason: Pain scale 2-4 (Mild) Stop: 06/30/18 20:28 Last Admin: 05/31/18 23:03 Dose: 500 mg Albuterol Sulfate (Proventil 0.083% Neb Soln) 2.5 mg NEB [id number] PRN PRN Reason: SHORTNESS OF BREATH Stop: 06/30/18 20:28 Calcitriol (Rocaltrol) 0.5 mcg PO DAILY GISSELL Stop: 07/03/18 20:01 Last Admin: 06/04/18 09:00 Dose: Not Given Epoetin Geraldo (Epogen) 10,000 unit SQ 1X ONE Stop: 06/04/18 21:48 Fentanyl Citrate (Sublimaze) 25 mcg IV Q4HP PRN PRN Reason: Pain scale 8-10 (Severe) Stop: 07/03/18 09:40 Last Admin: 06/04/18 21:35 Dose: 25 mcg Haloperidol Lactate (Haldol) 2 mg IV Q4HP PRN PRN Reason: AGITATION Stop: 07/03/18 09:40 Last Admin: 06/03/18 10:02 Dose: 2 mg Levofloxacin/Dextrose (Levaquin 250mg/50 Ml Ivpb) 250 mg in 50 mls @ 50 mls/hr IV Q24H GISSELL; Protocol Stop: 07/03/18 12:01 Last Admin: 06/04/18 12:26 Dose: 50 mls Furosemide 100 mg/ Sodium (Chloride) 100 mls @ 5 mls/hr IV Q20H GISSE[facility] Stop: 07/03/18 07:31 Last Admin: 06/04/18 03:31 Dose: 100 mls Propofol (Diprivan) 1,000 mg in 100 mls @ 0 mls/hr IV PRN PRN; Protocol PRN Reason: SEDATION Stop: 07/03/18 09:40 Last Admin: 06/04/18 19:49 Dose: 100 mls Pharmacy Consult (Pharmacy Consult) 1 mls @ 1 mls/hr XX DAILYPRN PRN; Protocol PRN Reason: Vancomycin dose by pharmacy Stop: 07/03/18 12:22 Vancomycin HCl 2 gm/ Sodium (Chloride) 500 mls @ 250 mls/hr IVPB Q48H GISSE[facility] Stop: 07/04/18 18:01 Last Admin: 06/04/18 17:56 Dose: 500 mls Insulin Glargine (Lantus) 10 units SQ BEDTIME GISSELL Stop: 07/01/18 21:01 Last Admin: 06/04/18 21:20 Dose: 10 units Insulin Human Lispro (Humalog) 5 unit SQ AC GISSELL Stop: 07/01/18 07:31 Last Admin: 06/04/18 16:41 Dose: 5 unit Ipratropium Henry (Atrovent Neb) 0.5 mg NEB [id number] PRN PRN Reason: SHORTNESS OF BREATH Stop: 07/01/18 02:01 Last Admin: 06/01/18 00:00 Dose: 0.5 mg Lorazepam (Ativan) 2 mg IV Q2H PRN PRN Reason: SEDATION Stop: 07/04/18 12:37 Last Admin: 06/04/18 20:35 Dose: 2 mg Metoprolol Tartrate (Lopressor) 100 mg PO BID [facility] Stop: 07/01/18 09:01 Last Admin: 06/04/18 21:20 Dose: 100 mg Multivitamins/Minerals (Centrum Tablet) 1 tab PO DAILY GISSELL Stop: 07/02/18 09:01 Last Admin: 06/04/18 09:00 Dose: Not Given Nutritional Formula (Vital Hp) 0 ml RTH CONT [facility] Stop: 07/04/18 10:01 Last Admin: 06/04/18 10:50 Dose: 1,000 ml Ondansetron HCl (Zofran) 4 mg IV Q6HP PRN PRN Reason: NAUSEA / VOMITING Stop: 06/30/18 20:28 Pantoprazole Sodium (Protonix Inj) 40 mg IVP DAILY [facility] Stop: 07/05/18 09:01 Last Admin: 06/04/18 10:49 Dose: 40 mg Sodium Bicarbonate (Sodium Bicarb 325 Mg) 1,300 mg PO 1X ONE Stop: 06/04/18 22:01 Sodium Chloride (Normal Saline Flush) 10 ml IV BID [facility] Stop: 06/30/18 21:01 Last Admin: 06/04/18 21:20 Dose: 10 ml Sodium Chloride (Sodium Chloride 10 Ml Inj) 10 ml IV UD PRN PRN Reason: Diluant Stop: 07/04/18 10:27 Last Admin: 06/04/18 10:49 Dose: 10 ml Spironolactone (Aldactone) 50 mg PO BID GISSELL Stop: 07/04/18 22:01 Microbiology Results 05/31/18 12:10 Clean Catch Urine [place] Count - Final >100,000 CFU/ML. 05/31/18 12:10 Clean Catch Urine - Final 05/31/18 20:00 Blood - Blood Aerobic Blood Culture - Preliminary No growth in 24 hours. 05/31/18 20:00 Blood - Blood Anaerobic Blood Culture - Preliminary No growth in 24 hours. 05/31/18 19:45 Blood - Blood Aerobic Blood Culture - Preliminary No growth in 24 hours. 05/31/18 19:45 Blood - Blood Anaerobic Blood Culture - Preliminary No growth in 24 hours. Assessment/ Plan: Nephrology. No IH/ ROS from the patient due to intubation/ sedation. Case discussed with the nurse. Urine output seems to be improving. Vitals, medications, blood work and imaging reviewed in the chart. General: Cooperative, Mild distress HEENT: Atraumatic, Mucous membr. moist/pink Neck: Supple, JVD distended Respiratory: Diminished, Crackles/rales Cardiovascular: Regular rate/rhythm, No rubs, Edema. Anasarca. Gastrointestinal: Soft and benign, Non-distended, No guarding Musculoskeletal: No clubbing, No contractures Integumentary: No rashes, No cyanosis Neurological: Normal speech Greater than 30 minutes patient care. Laboratory Data (last 24 hrs) 05/31/18 17:52: PT 11.8, INR 1.00 05/31/18 17:52: WBC 8.2, Hgb 8.0 L, Hct 24.1 L, Plt Count 199 05/31/18 17:52: Sodium 142, Potassium 3.3 L, BUN 32 H, Creatinine 3.19 H, Glucose 134 H, Magnesium 1.8, Total Bilirubin 0.3, AST 24, ALT 20, Alkaline Phosphatase 81, Lipase 50 L Imagings Data: EXAM DESCRIPTION: CT - Chest Abd Pelvis Wo Con - 05/31/2018 7:04 pm CLINICAL HISTORY: Chest pain, abdominal pain, difficulty breathing COMPARISON: CT chest December 2015 TECHNIQUE: During dynamic enhancement using 100 milliliters nonionic IV contrast, axial 5 millimeter thick images of the chest, abdomen and pelvis were obtained. Biphasic technique was utilized through the abdomen. No oral contrast administered. All CT scans are performed using dose optimization technique as appropriate and may include automated exposure control or mA/KV adjustment according to patient size. FINDINGS: Airspace consolidation involves the lingula of the left upper lobe accounting for the lateral left chest opacification on earlier chest film. There is minimal patchy opacification in the left lower lobe. Patient has bilateral small pleural effusions. Small nonspecific mediastinal lymph nodes are present. No pneumothorax. No chest wall mass or abnormal axillary lymphadenopathy seen. Small pericardial effusion present. Moderate fluid retention seen in the subcutaneous fatty tissues. The liver, spleen and pancreas show no suspicious findings on noncontrast imaging. Gallbladder and biliary tree are normal. No hydronephrosis or acute renal process on noncontrast imaging. Isodense masses and pyelonephritis are not excluded on a noncontrast study. No adrenal abnormalities. No urinary bladder abnormality. Uterus and ovaries are grossly normal. Detail is limited due to body habitus. No dilated bowel loops or focal ball bowel wall thickening. Minimal amount of ascites adjacent to the liver. No free air or pneumatosis. No hernia, mass or bulky lymphadenopathy. No significant bone or vascular finding. IMPRESSION: Moderate-sized pneumonia fills the lingula of the left upper lobe. There is minimal patchy pneumonia change at the base of the left lower lobe. Small bilateral pleural effusions are present. No acute finding in the peritoneal or retroperitoneal spaces. The patient has a minimal amount of ascites. Pericardial effusion small in size. Moderate severity fluid retention pattern in the subcutaneous fatty tissues. Conclusions/Impression: A/ SHWETHA likely ATN. Hypokalemia. CKD III with proteinuria. Diastolic CHF, A/C. Acute hypoxic respiratory failure. DM II with CKD. HTN with CKD/ CHF. Anemia in chronic illness. Hypoalbuminemia. Anasarca. Lobar PNA. Morbid Obesity. P/ Continue current POC and Medications. Continue Lasix gtt. Give high dose Lasix. Start Spironolactone BID. Give oral sodium bicarb. Give Procrit. Agree with abx. Intubated/ Ventilator support as ordered. No NSAIDs. AM labs. Daily weight. Case discussed with Dr. Cline. May need to consider dialysis in the setting of anasarca, respiratory failure and SHWETHA, if no improvement.
[2018-06-04] MEDS: SPIRONOLACTONE 25 MG TABLET PO SCH (22:09)
[2018-06-04] MEDS ORDERED: EPOETIN ALFA 10,000 UNIT/ML VIAL ONE (22:23)
[2018-06-05] MEDS: LORazepam 2 MG/ML VIAL IV PRN ×3 (01:02→11:36)
[2018-06-05] MEDS: FENTANYL CITR 100 MCG/2 ML IV PRN ×3 (02:59→20:21)
[2018-06-05] MEDS: PROPOFOL 1,000 MG/100 ML VIAL IV PRN ×2 (03:25→17:41)
[2018-06-05 05:29] LABS: Arterial Blood Carboxyhemoglob 1.6 % (0-1.5); Blood Gas Oxyhemoglobin 89.7 % (94-97)
[2018-06-05 05:54] LABS: Absolute Lymphocytes (CBC) 0.8 K/uL (0.7-4.9); Absolute Monocytes 0.3 K/uL (0.1-1.3); Absolute Neutrophil 4.8 K/uL (1.8-8.0); Basophils % 0.2 % (0-1.3); Eosinophils % 0.2 % (0-4.4); Hematocrit 23.2 % (36.0-45.0); Lymphocytes % 13.8 % (15.3-44.8); MPV 11.3 fL (7.6-11.3); RBC Red Blood Cell Count 2.65 M/uL (3.86-4.86)
[2018-06-05 06:10] LABS: Magnesium 2.1 mg/dL (1.8-2.4); Potassium 3.7 mmol/L (3.5-5.1)
[2018-06-05] MEDS: INSULIN LISPRO 100 UNIT/1 ML SQ SCH ×3 (08:21→17:41)
[2018-06-05] MEDS: METOPROLOL TAR 50 MG TAB PO SCH ×2 (08:21→20:38)
[2018-06-05] MEDS: MULTIVITAMIN TAB PO SCH (08:22)
[2018-06-05] MEDS: SPIRONOLACTONE 25 MG TABLET PO SCH ×2 (08:22→20:39)
[2018-06-05] MEDS: PANTOPRAZOLE 40 MG INJ IVP SCH (08:23)
[2018-06-05] MEDS: CALCITROL 0.25 MCG CAP PO SCH (08:23)
[2018-06-05] MEDS: SODIUM CHLORIDE 0.9% 10ML INJ IV PRN (08:23)
--- NOTE | 2018-06-05 08:46 | RAD REPORT ---
EXAM DESCRIPTION: Suzette Single View06/05/2018 6:28 am CLINICAL HISTORY: Shortness of breath COMPARISON: June 04 FINDINGS: Lines tubes in good position. Mild worsening in the right and no significant change in left pulmonary opacities. Heart remains enla rged IMPRESSION: Mild worsening in the right and no significant change in the left pulmonary opacities
--- NOTE | 2018-06-05 10:20 | P.PN ---
Subjective Date of Service: 06/05/18 Chief Complaint: Respiratory failure Patient seems to be improving is off the propofol on Ativan and fentanyl he declined to 10 on 40% oxygen chest x-ray still shows some bilateral haziness urine output has improved still has some frothy sputum Review of Systems is unable to be obtained Physical Examination - Vital Signs Temperature: 98.8 F Blood Pressure: 183/90 Pulse: 77 Respirations: 24 Pulse Ox (%): 92 - Physical Exam General: Alert, Cooperative Respiratory: Clear to auscultation bilaterally, Diminished Cardiovascular: Edema (Significant edema) - Studies Medications List Reviewed: Yes Assessment & Plan - Problems (Diagnosis) (1) Pneumonia Current Visit: No Status: Acute Plan: Not sure if she has edema and may have been 1 May be volume overload pulmonary edema from her renal failure labs reviewed change to Rocephin Dc Levaquin vancomycin Qualifiers: Pneumonia type: due to unspecified organism Laterality: left Lung location: lower lobe of lung Qualified Code(s): J18.1 - Lobar pneumonia, unspecified organism (2) Respiratory failure Current Visit: Yes Status: Acute Plan: Respiratory status is improving chest x-ray appears to have improved he appears to me that she has bilateral pleural effusion from volume overload renal function is improving urine output is also improving today the PEEP was decreased to 10 currently on 40% oxygen hopefully can be in her off in the next couple of days is for diuresis continues Qualifiers: Chronicity: acute
--- NOTE | 2018-06-05 11:24 | P.PN ---
Subjective Date of Service: 06/05/18 Chief Complaint: Respiratory failure Patient seen and examined at bedside with RN. Chart reviewed. Case discussed with pulmonology and nephrology at this time. Pt now Intubated and sedated. No events overnight. UO is well today. Review of Systems 10-point ROS is otherwise unremarkable Physical Examination - Vital Signs Temperature: 98.8 F Blood Pressure: 183/90 Pulse: 77 Respirations: 24 Pulse Ox (%): 92 - Physical Exam General: In no apparent distress, Other (Intubated and sedated ) HEENT: Atraumatic, PERRLA, EOMI Neck: Supple, JVD distended Respiratory: Normal air movement, Crackles/rales, Expiratory wheezes, Inspiratory wheezes Cardiovascular: Regular rate/rhythm, Normal S1 S2, Edema Gastrointestinal: Normal bowel sounds, No tenderness Musculoskeletal: No tenderness, Swelling Integumentary: No rashes Neurological: Normal tone, Normal affect Lymphatics: No axilla or inguinal lymphadenopathy - Studies Medications List Reviewed: Yes Assessment And Plan - Current Problems (Diagnosis) (1) Acute respiratory distress Current Visit: Yes Status: Acute Plan: Now with Acute Respiratory Arrest. Most Likely secondary to pneumonia versus worsening of hypoventilation syndrome. -Now Intubated and sedated. -pulmonology consulted. Appreciated recommendations at this time (2) Pneumonia Current Visit: No Status: Acute Plan: Left lower lobe pneumonia on chest x-ray. -currently on IV Levaquin. Will continue -sputum culture and blood culture pending at this time -pulmonology consulted, appreciated recommendations at this time Qualifiers: Pneumonia type: due to unspecified organism Laterality: left Lung location: lower lobe of lung Qualified Code(s): J18.1 - Lobar pneumonia, unspecified organism (3) Diastolic heart failure Current Visit: No Status: Acute Plan: acute on chronic Diastolic HF with Volume Overload. -Currently started on IV lasix ggt with albumin. -ECHO with Grade 2 Diastolic HF -UO adequate at this time Qualifiers: Heart failure chronicity: acute on chronic Qualified Code(s): I50.33 - Acute on chronic diastolic (congestive) heart failure (4) Acute renal failure Current Visit: No Status: Acute Plan: SHWETHA on CKD 2.2 to PNA. -Acute worsening with BUN.CR getting worse today -Nephrology consulted. 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 Diabetes mellitus complication status: with skin complications Diabetes mellitus complication detail: with other skin complication Qualified Code(s): E11.628 - Type 2 diabetes mellitus with other skin complications; Z79.4 - USP (current) use of insulin (6) GERD (gastroesophageal reflux disease) Current Visit: No Status: Chronic Qualifiers: Esophagitis presence: esophagitis presence not specified Qualified Code(s) : K21.9 - Gastro-esophageal reflux disease without esophagitis (7) History of pulmonary embolism Current Visit: No Status: Chronic (8) Hypertension Current Visit: No Status: Chronic Qualifiers: Hypertension type: essential hypertension Qualified Code(s): I10 - Essential (primary) hypertension (9) Morbid obesity Current Visit: No Status: Chronic (10) Hyperventilation syndrome Current Visit: Yes Status: Chronic Discharge Plan: Home Plan to discharge in: 48 Hours - Code Status/Comfort Care Code Status Assessed: Yes Critical Care: No
[2018-06-05] MEDS: CEFTRIAXONE/SWI 1gm 1 GM/10 ML SYR IV SCH (12:01)
[2018-06-05] MEDS: FUROSEMIDE 100 MG in NA CHLORIDE 0.9% 90 ML IV SCH (17:41)
--- NOTE | 2018-06-05 18:28 | PN ---
Date of Progress Note: 06/05/2018 Subjective: The patient remains intubated. She remains on 15 of PEEP. She has gotten multiple dose s of additional Lasix as well as she is on spironolactone at this time to maintain urine output as we ll as maintain her potassium. She remains on Lasix drip at 5 mg/hour, and she is putting out good am ount of urine as well. Her blood pressure seems to be holding and she seems to be doing okay overall . Objective: Vital Signs: At this time are showing temperature of 98.8, pulse rate of 78, respiratory rate of 22, and blood pressure 179/83. General: She is intubated and sedated. HEENT: Shows atraumatic head. Lungs: Auscultation of the lungs revealed bilateral equal air entry anteriorly with diminished breat h sounds at bases. Heart: Auscultation of the heart revealed regular rate and rhythm. Extremities: With diffuse anasarca noted all over her body. Laboratory Data: At this time is showing creatinine improving to 4.4, BUN of 58, sodium of 139 and p otassium of 3.7. Her urine output has been satisfactory since yesterday. CBC showing hemoglobin of 7.8, hematocrit of 23.2, and platelet count of 134. Current Medications: Include Lasix drip at 5 mg/hour, spironolactone 50 mg b.i.d., calcitriol, Epoge n 1 time dose was given yesterday, fentanyl p.r.n., metoprolol 100 mg b.i.d., sodium bicarbonate 1300 mg and Rocephin 1 g daily. Impression: 1.Acute respiratory failure secondary to combination of pneumonia as well as congestive heart failur e, currently intubated. The patient has pink, frothy sputum coming out from her ET tube, suggestive of pulmonary edema. We will continue diuresis with Lasix drip as well as spironolactone. We will in crease the Lasix drip to 7.5 mg/hour and monitor urine output closely. 2.Acute on chronic renal insufficiency. The patient's renal function is slightly better today. She had gotten some albumin previously. However, her blood pressure is running high at this time. We w ill hold off on any albumin and monitor her. 3.Pneumonia, left lower lobe pneumonia with respiratory failure. Patient is on IV Levaquin. Monito r labs and follow up on sputum cultures. 4.Chronic diastolic heart failure with underlying obstructive sleep apnea. The patient is on diures is. As mentioned above, we will follow up. 5.Type 2 diabetes, on insulin. 6.History of pulmonary embolism, chronic. 7.Morbid obesity with hypoventilation syndrome. The patient is currently in respiratory failure. W e will need to monitor closely and evaluate for trach whenever appropriate. Plan: The patient is overall doing okay. She is diuresing well at this time. I will go ahead and i ncrease her Lasix to 7.5 mg/hour. Monitor her urine output closely. Continue Aldactone and follow u p on labs tomorrow. In the meanwhile, avoid hypotension, nephrotoxins and follow up on urine output closely. VV/MODL Voice ID: [id number] Report ID: [id number]
[2018-06-05] MEDS: INSULIN GLARGINE 100 UNITS/ML SQ SCH (20:38)
[2018-06-06] MEDS: PROPOFOL 1,000 MG/100 ML VIAL IV PRN ×3 (00:03→11:07)
[2018-06-06] MEDS: FENTANYL CITR 100 MCG/2 ML IV PRN ×4 (00:50→22:46)
[2018-06-06 05:28] LABS: Absolute Lymphocytes (CBC) 1.4 K/uL (0.7-4.9); Absolute Monocytes 0.4 K/uL (0.1-1.3); Absolute Neutrophil 5.9 K/uL (1.8-8.0); Basophils % 0.2 % (0-1.3); Eosinophils % 1.2 % (0-4.4); Hematocrit 22.2 % (36.0-45.0); Lymphocytes % 18.1 % (15.3-44.8); MPV 10.6 fL (7.6-11.3); Monocytes % 4.9 % (3.3-12.3); RBC Red Blood Cell Count 2.54 M/uL (3.86-4.86)
[2018-06-06 05:55] LABS: Magnesium 1.9 mg/dL (1.8-2.4); Phosphorus 4.6 mg/dL (2.5-4.9); Potassium 3.6 mmol/L (3.5-5.1)
--- NOTE | 2018-06-06 08:06 | RAD REPORT ---
EXAM DESCRIPTION: RAD - Chest Single View - 06/06/2018 7:01 am CLINICAL HISTORY: Pneumonia COMPARISON: June 05 TECHNIQUE: AP portable chest image was obtained [id number] hours . FINDINGS: ETT, feeding tube and PICC line remain in place. Bilateral mid and lower lung field airspa ce opacification has show moderate improvement. No failure or volume overload findings. Heart size lambert s diminished in prominence. No enlarging pleural effusion and no pneumothorax. No acute bony abnormal ity seen. No acute aortic findings suspected. IMPRESSION: Moderate improvement in the bilateral lung parenchymal opacification since prior day stiven ging.
[2018-06-06] MEDS: FUROSEMIDE 100 MG in NA CHLORIDE 0.9% 90 ML IV SCH ×2 (08:29→19:43)
[2018-06-06] MEDS: CEFTRIAXONE/SWI 1gm 1 GM/10 ML SYR IV SCH (08:30)
[2018-06-06] MEDS: LORazepam 2 MG/ML VIAL IV PRN ×4 (08:30→22:00)
[2018-06-06] MEDS: METOPROLOL TAR 50 MG TAB PO SCH ×2 (08:31→20:55)
[2018-06-06] MEDS: MULTIVITAMIN TAB PO SCH (08:31)
[2018-06-06] MEDS: SPIRONOLACTONE 25 MG TABLET PO SCH ×2 (08:31→20:54)
[2018-06-06] MEDS: PANTOPRAZOLE 40 MG INJ IVP SCH (08:31)
[2018-06-06] MEDS: INSULIN LISPRO 100 UNIT/1 ML SQ SCH ×3 (08:42→17:26)
[2018-06-06] MEDS: CALCITROL 0.25 MCG CAP PO SCH (08:43)
--- NOTE | 2018-06-06 11:56 | P.PN ---
Subjective Date of Service: 06/06/18 Chief Complaint: Respiratory failure Patient seen and examined at bedside with RN. Chart reviewed. Case discussed with pulmonology and nephrology at this time. No events overnight. UO is well today. Not able to wean off the Ventilator today. Continues to be intubated. Review of Systems 10-point ROS is otherwise unremarkable Physical Examination - Vital Signs Temperature: 98 F Blood Pressure: 165/73 Pulse: 71 Respirations: 12 Pulse Ox (%): 98 - Physical Exam General: In no apparent distress, Other (Intubated and sedated ) HEENT: Atraumatic Neck: Supple, JVD distended Respiratory: Normal air movement, Crackles/rales, Expiratory wheezes, Inspiratory wheezes Cardiovascular: Regular rate/rhythm, Normal S1 S2 Gastrointestinal: Normal bowel sounds, No tenderness Musculoskeletal: No tenderness, Swelling Integumentary: No rashes Lymphatics: No axilla or inguinal lymphadenopathy - Studies Microbiology Data (last 24 hrs): 05/31/18 20:00 Blood - Blood Aerobic Blood Culture - Final No growth in 5 days. 05/31/18 20:00 Blood - Blood Anaerobic Blood Culture - Final No growth in 5 days. 05/31/18 19:45 Blood - Blood Aerobic Blood Culture - Final No growth in 5 days. 05/31/18 19:45 Blood - Blood Anaerobic Blood Culture - Final No growth in 5 days. Medications List Reviewed: Yes Assessment And Plan - Current Problems (Diagnosis) (1) Acute respiratory distress Current Visit: Yes Status: Acute Plan: Now with Acute Respiratory Arrest. Most Likely secondary to pneumonia versus worsening of hypoventilation syndrome. -Currently intubated and sedated -unable to wean off the ventilator this a.m. will continue to attempt it tomorrow morning -pulmonology consulted. Appreciated recommendations at this time (2) Diastolic heart failure Current Visit: No Status: Acute Plan: acute on chronic Diastolic HF with Volume Overload. -Currently started on IV lasix ggt with albumin. -ECHO with Grade 2 Diastolic HF -UO adequate at this time Qualifiers: Heart failure chronicity: acute on chronic Qualified Code(s): I50.33 - Acute on chronic diastolic (congestive) heart failure (3) Pneumonia Current Visit: No Status: Acute Plan: Left lower lobe pneumonia on chest x-ray. -currently on IV Levaquin. Will continue -sputum culture and blood culture negative thus far -pulmonology consulted, appreciated recommendations at this time Qualifiers: Pneumonia type: due to Chlamydia Laterality: left Lung location: lower lobe of lung Qualified Code(s): J16.0 - Chlamydial pneumonia (4) Acute renal failure Current Visit: No Status: Acute Plan: SHWETHA on CKD 2.2 to PNA. -Acute worsening with BUN.CR due to lasix ggt however pt is volume overload. -Nephrology consulted. Appreciated Reccs -On IV lasix ggt and albumin (5) Diabetes mellitus Onset Date: 11/12/17 Current Visit: No Status: Chronic Qualifiers: Diabetes mellitus type: type 2 Diabetes mellitus intermediate insulin use: with intermediate use Diabetes mellitus complication status: with skin complications Diabetes mellitus complication detail: with other skin complication Qualified Code(s): E11.628 - Type 2 diabetes mellitus with other skin complications; Z79.4 - prison (current) use of insulin (6) GERD (gastroesophageal reflux disease) Current Visit: No Status: Chronic Qualifiers: Esophagitis presence: esophagitis presence not specified Qualified Code(s) : K21.9 - Gastro-esophageal reflux disease without esophagitis (7) History of pulmonary embolism Current Visit: No Status: Chronic (8) Hypertension Current Visit: No Status: Chronic Qualifiers: Hypertension type: essential hypertension Qualified Code(s): I10 - Essential (primary) hypertension (9) Morbid obesity Current Visit: No Status: Chronic (10) Hyperventilation syndrome Current Visit: Yes Status: Chronic Discharge Plan: Other Plan to discharge in: Greater than 2 days - Code Status/Comfort Care Code Status Assessed: Yes Critical Care: Yes
--- NOTE | 2018-06-06 15:35 | PN ---
Date of Progress Note: 06/06/2018 Subjective: The patient is seen and examined at bedside. The patient is doing well. She has been d iuresing well, had about 1000 cc of urine overnight and has another 1000 cc in the bag right now. Julissa easton is on 12 of PEEP. Her ventilator settings are being weaned down. Physical Examination: Vital Signs: Showing temperature of 98, her pulse rate of 74, respiratory rate of 12 and blood press ure 167/87. General: She appears in no acute distress. Intubated and sedated. HEENT: Shows atraumatic head. Lungs: Clear to auscultation. Heart: Auscultation of the heart revealed regular rate and rhythm. Abdomen: Obese, nontender. Extremities: Anasarca seems to be slightly improving. Laboratory Data: Showing creatinine improving to 4.2, BUN of 62, and other electrolytes are stable. Sodium of 141. CBC showing hemoglobin of 7.5, hematocrit of 22.2, and platelet count of 130. Current Medications: Have been reviewed in detail. Impression: 1.Acute on chronic renal insufficiency secondary to underlying cardiorenal syndrome, currently with improving renal function on diuresis. I will increase the Lasix to 10 mg/hour and she also remains o n spironolactone 50 mg b.i.d. 2.Mild . We will increase free water through feeding to 200 cc every 4 hours and monitor her. 3.Respiratory failure secondary to combination of heart failure as well as pneumonia. Remains on a ventilator, being managed by Pulmonary. 4.Hypertension, currently stable. 5.Type 2 diabetes, on insulin. 6.Chronic anemia related to chronic disease, currently with stable hemoglobin and hematocrit. Trans fuse for hemoglobin less than 7. Plan: Overall the patient is doing okay at this time. Increase Lasix to 10 mg/hour. Continue sharonda nolactone. Continue diuresis. Monitor in's and out's and avoid further hypotension, nephrotoxins an d adjust antibiotics for renal function and follow up closely and wean off the ventilator as tolerate d. VV/MODL Voice ID: [id number] Report ID: [id number]
[2018-06-06] MEDS ORDERED: HYDRALAZINE HCL 20 MG/ML VIAL IV ONE (17:22)
[2018-06-06] MEDS: INSULIN GLARGINE 100 UNITS/ML SQ SCH (20:56)
[2018-06-06] MEDS: ONDANSETRON 4 MG/2 ML VIAL IV PRN (22:00)
[2018-06-07] MEDS: HALOPERIDOL LACT 5 MG/ML INJ IV PRN ×3 (00:08→19:29)
[2018-06-07] MEDS: LORazepam 2 MG/ML VIAL IV PRN ×5 (02:13→23:40)
[2018-06-07 05:25] VITALS: BMI 50.9
[2018-06-07 05:26] LABS: Absolute Lymphocytes (CBC) 1.2 K/uL (0.7-4.9); Absolute Monocytes 0.5 K/uL (0.1-1.3); Absolute Neutrophil 5.6 K/uL (1.8-8.0); Basophils % 0.3 % (0-1.3); Eosinophils % 2.7 % (0-4.4); Hematocrit 22.4 % (36.0-45.0); Lymphocytes % 16.3 % (15.3-44.8); MPV 10.4 fL (7.6-11.3); RBC Red Blood Cell Count 2.56 M/uL (3.86-4.86)
[2018-06-07 05:42] LABS: Phosphorus 4.5 mg/dL (2.5-4.9); Potassium 3.3 mmol/L (3.5-5.1)
[2018-06-07 06:01] LABS: Arterial Blood Carboxyhemoglob 1.5 % (0-1.5); Blood Gas Oxyhemoglobin 95.2 % (94-97)
[2018-06-07] MEDS: FUROSEMIDE 100 MG in NA CHLORIDE 0.9% 90 ML IV SCH ×2 (06:01→15:48)
[2018-06-07] MEDS: FENTANYL CITR 100 MCG/2 ML IV PRN ×3 (06:45→22:36)
--- NOTE | 2018-06-07 08:03 | RAD REPORT ---
EXAM DESCRIPTION: Suzette Single View06/07/2018 6:52 am CLINICAL HISTORY: Shortness of breath COMPARISON: June 06 FINDINGS: No significant change in the bilateral pulmonary opacities. The heart is mildly enlarged. Lines and tubes remain in place IMPRESSION: No significant change since prior exam
--- NOTE | 2018-06-07 08:18 | ECHO ---
HEIGHT: 5 ft 6 in WEIGHT: 315 lb 11.2 oz DATE OF STUDY: 06/04/[address]: Js Wallace MD 2-DIMENSIONAL: YES M.MODE: YES DOPPLER: YES COLOR FLOW: YES TDS: NO PORTABLE: YES DEFINITY: NO BUBBLE STUDY: NO DIAGNOSIS: RESPIRATORY FAILURE CARDIAC HISTORY: CATHERIZATION: NO SURGERY: NO PROSTHETIC VALVE: NO PACEMAKER: NO MEASUREMENTS (cm) DIASTOLIC (NORMALS) SYSTOLIC (NORMALS) IVSd 1.1 (0.6-1.2) LA Diam 3.8 (1.9-4.0) LVEF 53% LVIDd 5.2 (3.5-5.7) LVIDs 3.8 (2.0-3.5) %FS 27% LVPWd 1.2 (0.6-1.2) Ao Diam 3.2 (2.0-3.7) 2 DIMENSIONAL ASSESSMENT: RIGHT ATRIUM: NORMAL LEFT ATRIUM: NORMAL RIGHT VENTRICLE: NORMAL LEFT VENTRICLE: NORMAL TRICUSPID VALVE: NORMAL MITRAL VALVE: NORMAL PULMONIC VALVE: NORMAL AORTIC VALVE: NORMAL PERICARDIAL EFFUSION: SMALL AORTIC ROOT: NORMAL LEFT VENTRICULAR WALL MOTION: NORMAL DOPPLER/COLOR FLOW: NORMAL COMMENTS: SMALL PERICARDIAL EFFUSION, NO TAMPONADE. LARGE PLEURAL EFFUSION. NORMAL LEFT VENTRICULAR SIZE AND FUNCTION. TECHNOLOGIST: Minal RAMOS
[2018-06-07] MEDS: CEFTRIAXONE/SWI 1gm 1 GM/10 ML SYR IV SCH (08:41)
[2018-06-07] MEDS: PANTOPRAZOLE 40 MG INJ IVP SCH (08:41)
[2018-06-07] MEDS: MULTIVITAMIN TAB PO SCH (08:42)
[2018-06-07] MEDS: SPIRONOLACTONE 25 MG TABLET PO SCH ×2 (08:42→20:59)
[2018-06-07] MEDS: METOPROLOL TAR 50 MG TAB PO SCH ×2 (08:42→20:59)
[2018-06-07] MEDS: CALCITROL 0.25 MCG CAP PO SCH (08:43)
[2018-06-07] MEDS: INSULIN LISPRO 100 UNIT/1 ML SQ SCH ×3 (09:06→16:56)
--- NOTE | 2018-06-07 11:14 | P.PN ---
Subjective Date of Service: 06/07/18 Chief Complaint: Respiratory failure Patient seen and examined at bedside with RN. Chart reviewed. Case discussed with pulmonology and nephrology at this time. No events overnight. UO is adequate this board. Currently still remains intubated. Full propofol. On SIMV mode this morning Review of Systems 10-point ROS is otherwise unremarkable Physical Examination - Vital Signs Temperature: 97.9 F Blood Pressure: 124/77 Pulse: 65 Respirations: 14 Pulse Ox (%): 95 - Physical Exam General: In no apparent distress, Other (Intubated and sedated) HEENT: Atraumatic, PERRLA, EOMI Neck: Supple, JVD distended Respiratory: Normal air movement, Expiratory wheezes, Inspiratory wheezes Cardiovascular: Regular rate/rhythm, Normal S1 S2 Gastrointestinal: Normal bowel sounds, No tenderness Musculoskeletal: No tenderness Integumentary: No rashes Lymphatics: No axilla or inguinal lymphadenopathy - Studies Medications List Reviewed: Yes Assessment And Plan - Current Problems (Diagnosis) (1) Acute respiratory distress Current Visit: Yes Status: Acute Plan: Now with Acute Respiratory Arrest. Most Likely secondary to volume overload versus pneumonia versus worsening of hypoventilation syndrome. -Currently intubated and sedated. -currently on SIMV mode. Will try to wean off the ventilator this morning -pulmonology consulted. Appreciated recommendations at this time (2) Diastolic heart failure Current Visit: No Status: Acute Plan: acute on chronic Diastolic HF with Volume Overload. -Currently started on IV lasix ggt with albumin. -ECHO with Grade 2 Diastolic HF -UO adequate at this time -will continue Lasix drip and albumin Qualifiers: Heart failure chronicity: acute on chronic Qualified Code(s): I50.33 - Acute on chronic diastolic (congestive) heart failure (3) Pneumonia Current Visit: No Status: Acute Plan: Left lower lobe pneumonia on chest x-ray. -currently on IV Levaquin. Will continue -sputum culture and blood culture negative thus far -pulmonology consulted, appreciated recommendations at this time Qualifiers: Pneumonia type: due to Chlamydia Laterality: left Lung location: lower lobe of lung Qualified Code(s): J16.0 - Chlamydial pneumonia (4) Acute renal failure Current Visit: No Status: Acute Plan: SHWETHA on CKD 2.2 to PNA. -Acute worsening with BUN.CR elevated due to lasix ggt however pt is volume overload does requiring Lasix ggt. -Nephrology consulted. 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 (6) GERD (gastroesophageal reflux disease) Current Visit: No Status: Chronic Qualifiers: Esophagitis presence: esophagitis presence not specified Qualified Code(s) : K21.9 - Gastro-esophageal reflux disease without esophagitis (7) History of pulmonary embolism Current Visit: No Status: Chronic (8) Hypertension Current Visit: No Status: Chronic Qualifiers: Hypertension type: essential hypertension Qualified Code(s): I10 - Essential (primary) hypertension (9) Morbid obesity Current Visit: No Status: Chronic (10) Hyperventilation syndrome Current Visit: Yes Status: Chronic - Plan Patient pending clinical improvement at this time. Will continue with Lasix drip along with albumin. Will try to wean off of the ventilator at this time. Will monitor patient closely here in the ICU. Discharge Plan: Home Plan to discharge in: 48 Hours - Code Status/Comfort Care Code Status Assessed: Yes Critical Care: No
[2018-06-07] MEDS ORDERED: POTASSIUM 25 MEQ EFFERV TAB PO ONE (12:22)
[2018-06-07] MEDS ORDERED: EPOETIN ALFA 10,000 UNIT/ML SQ ONE (12:23)
--- NOTE | 2018-06-07 12:38 | P.PN ---
Subjective Date of Service: 06/07/18 Chief Complaint: Respiratory failure Patient is improving he is currently on SIMV alert response cooperative off propofol Physical Examination - Vital Signs Temperature: 97.9 F Blood Pressure: 124/77 Pulse: 65 Respirations: 14 Pulse Ox (%): 95 - Physical Exam General: Cooperative Neck: Supple Respiratory: Clear to auscultation bilaterally - Studies Medications List Reviewed: Yes Assessment & Plan - Problems (Diagnosis) (1) Respiratory failure Current Visit: Yes Status: Acute Plan: Patient is 43 years of age admitted with respiratory failure iced samantha suspect that she had volume overload infection she is improving renal function is also improving x-ray appearances of also improved all cultures are negative oxygenation satisfactory on 40% FiO2 patient is on a PEEP of 10 and it will be reduced possible wean and extubate today vital signs are stable Qualifiers: Chronicity: acute
[2018-06-07] MEDS ORDERED: POTASSIUM 25 MEQ EFFERV TAB ONE (13:48)
--- NOTE | 2018-06-07 19:05 | CON ---
Date of Consultation: 06/07/2018 History Of Present Illness: Ms. Patel has been in the hospital since about the 31 of May. T his is June 07. She has had a slow deterioration. I am asked to see her because an echocardiogram d one several days ago showed a small pericardial effusion. There are no old echocardiograms to compar e. I have no idea if it is an acute or new or chronic finding. Some features of the effusion are no table and has a significant amount of what we call an effusion is actually an epicardial fat pad and there is a lot of thickening of the pericardium itself. There is also a very large left pleural effu avril. The patient has a history of respiratory difficulties. She did not seem to be so much of the hypoventilator. Her pCO2s have all been in the 30s and of course before she was intubated. I am not sure we have a blood gas from before, but I believe the first one is before intubation. She has a h istory of morbid obesity and hypertension and diabetes. She has renal insufficiency and most of her creatinines have been in the mid 4s. Dr. Yanes is following her here in the hospital. I believe s he is a hemodialysis patient. Physical Examination: General: She is intubated. She is obtunded. I think that is mostly because of heavy sedation. Skin: Warm, pink, well perfused. Lungs: Breath sounds are equal bilaterally. I do not appreciate wheezes. Heart: Reveals a regular rate and rhythm. No friction rub. Abdomen: Soft. Extremities: Reveal mild edema. Distal pulses are palpable. Diagnostic Studies: Her echocardiogram shows a normal ejection fraction, normal left ventricular jose mber sizes. Her chest x-ray looks like there is a left pleural effusion and diffuse interstitial inf iltrate. I would not be able to distinguish whether this is pulmonary edema or ARDS with underlying infection. Impression: The patient's pericardial effusion is of no consequence making a clear diagno sis would be useful. I think our most likely cause is related to her renal failure and us ually what we do in a case like this is increase the frequency of the dialysis and see if it shrinks. If the sample is to be had to make a clear diagnosis, it would be much easier to sample the left pl eural fluid or get a pleural biopsy than try the pericardium. It is way too small to hit with a need le, that would be impossible and subjecting her to cut down to reach the pericardium which seemed exc essive when we have other ways to make the diagnosis, so I would consider increased hemodialysis freq uency to see if the effusion goes away. MASOOD/HAIDER Voice ID: [id number] Report ID: [id number]
--- NOTE | 2018-06-07 20:19 | P.PN ---
Date of Service: 06/07/18 Vital Signs Temp Pulse Resp BP Pulse Ox 97.1 F 75 13 153/76 H 93 06/07/18 16:00 06/07/18 19:00 06/07/18 19:00 06/07/18 19:00 06/07/18 19:00 Medications Acetaminophen (Tylenol -Extra Strength) 500 mg PO Q4HP PRN PRN Reason: Pain scale 2-4 (Mild) Stop: 06/30/18 20:28 Last Admin: 05/31/18 23:03 Dose: 500 mg Albuterol Sulfate (Proventil 0.083% Neb Soln) 2.5 mg NEB [id number] PRN PRN Reason: SHORTNESS OF BREATH Stop: 06/30/18 20:28 Calcitriol (Rocaltrol) 0.5 mcg PO DAILY [facility] Stop: 07/03/18 20:01 Last Admin: 06/07/18 08:43 Dose: 0.5 mcg Fentanyl Citrate (Sublimaze) 25 mcg IV Q4HP PRN PRN Reason: Pain scale 8-10 (Severe) Stop: 07/03/18 09:40 Last Admin: 06/07/18 15:26 Dose: 25 mcg Haloperidol Lactate (Haldol) 2 mg IV Q4HP PRN PRN Reason: AGITATION Stop: 07/03/18 09:40 Last Admin: 06/07/18 19:29 Dose: 2 mg Propofol (Diprivan) 1,000 mg in 100 mls @ 0 mls/hr IV PRN PRN; Protocol PRN Reason: SEDATION Stop: 07/03/18 09:40 Last Admin: 06/06/18 11:07 Dose: 100 mls Ceftriaxone Sodium/Sodium Chloride (Rocephin 1 Gm/10 Ml Swi Ivp) 1 gm in 10 mls @ 600 mls/hr IV DAILY GISSELL; Protocol Stop: 07/05/18 11:01 Last Admin: 06/07/18 08:41 Dose: 10 mls Furosemide 100 mg/ Sodium (Chloride) 100 mls @ 10 mls/hr IV Q10H [facility] Stop: 07/06/18 18:01 Last Admin: 06/07/18 15:48 Dose: 100 mls Insulin Glargine (Lantus) 10 units SQ BEDTIME [facility] Stop: 07/01/18 21:01 Last Admin: 06/06/18 20:56 Dose: 10 units Insulin Human Lispro (Humalog) 5 unit SQ AC [facility] Stop: 07/01/18 07:31 Last Admin: 06/07/18 16:56 Dose: 5 unit Ipratropium [place] (Atrovent Neb) 0.5 mg NEB [id number] PRN PRN Reason: SHORTNESS OF BREATH Stop: 07/01/18 02:01 Last Admin: 06/01/18 00:00 Dose: 0.5 mg Lorazepam (Ativan) 4 mg IV Q2H PRN PRN Reason: SEDATION Stop: 07/04/18 12:37 Last Admin: 06/07/18 18:21 Dose: 4 mg Metoprolol Tartrate (Lopressor) 100 mg PO BID [facility] Stop: 07/01/18 09:01 Last Admin: 06/07/18 08:42 Dose: 100 mg Multivitamins/Minerals (Centrum Tablet) 1 tab PO DAILY [facility] Stop: 07/02/18 09:01 Last Admin: 06/07/18 08:42 Dose: 1 tab Nutritional Formula (Vital Hp) 0 ml RTH CONT [facility] Stop: 07/04/18 10:01 Last Admin: 06/04/18 10:50 Dose: 1,000 ml Ondansetron HCl (Zofran) 4 mg IV Q6HP PRN PRN Reason: NAUSEA / VOMITING Stop: 06/30/18 20:28 Last Admin: 06/06/18 22:00 Dose: 4 mg Pantoprazole Sodium (Protonix Inj) 40 mg IVP DAILY [facility] Stop: 07/05/18 09:01 Last Admin: 06/07/18 08:41 Dose: 40 mg Sodium Chloride (Normal Saline Flush) 10 ml IV BID [facility] Stop: 06/30/18 21:01 Last Admin: 06/07/18 08:44 Dose: 10 ml Sodium Chloride (Sodium Chloride 10 Ml Inj) 10 ml IV UD PRN PRN Reason: Diluant Stop: 07/04/18 10:27 Last Admin: 06/05/18 08:23 Dose: 10 ml Spironolactone (Aldactone) 50 mg PO BID [facility] Stop: 07/04/18 22:01 Last Admin: 06/07/18 08:42 Dose: 50 mg Microbiology Results 05/31/18 20:00 Blood - Blood Aerobic Blood Culture - Final No growth in 5 days. 05/31/18 20:00 Blood - Blood Anaerobic Blood Culture - Final No growth in 5 days. 05/31/18 19:45 Blood - Blood Aerobic Blood Culture - Final No growth in 5 days. 05/31/18 19:45 Blood - Blood Anaerobic Blood Culture - Final No growth in 5 days. 05/31/18 12:10 Clean Catch Urine [place] Count - Final >100,000 CFU/ML. 05/31/18 12:10 Clean Catch Urine - Final Assessment/ Plan: Nephrology. No IH/ ROS from the patient due to intubation. Off sedation. Case discussed with the nurse. Urine output improving. Vitals, medications, blood work and imaging reviewed in the chart. General: Cooperative, Mild distress HEENT: Atraumatic, Mucous membr. moist/pink Neck: Supple, JVD distended Respiratory: Diminished, Crackles/rales Cardiovascular: Regular rate/rhythm, No rubs, Edema. Anasarca. Gastrointestinal: Soft and benign, Non-distended, No guarding Musculoskeletal: No clubbing, No contractures Integumentary: No rashes, No cyanosis Neurological: Normal speech Greater than 30 minutes patient care. Laboratory Data (last 24 hrs) 05/31/18 17:52: PT 11.8, INR 1.00 05/31/18 17:52: WBC 8.2, Hgb 8.0 L, Hct 24.1 L, Plt Count 199 05/31/18 17:52: Sodium 142, Potassium 3.3 L, BUN 32 H, Creatinine 3.19 H, Glucose 134 H, Magnesium 1.8, Total Bilirubin 0.3, AST 24, ALT 20, Alkaline Phosphatase 81, Lipase 50 L Imagings Data: EXAM DESCRIPTION: CT - Chest Abd Pelvis Wo Con - 05/31/2018 7:04 pm CLINICAL HISTORY: Chest pain, abdominal pain, difficulty breathing COMPARISON: CT chest December 2015 TECHNIQUE: During dynamic enhancement using 100 milliliters nonionic IV contrast, axial 5 millimeter thick images of the chest, abdomen and pelvis were obtained. Biphasic technique was utilized through the abdomen. No oral contrast administered. All CT scans are performed using dose optimization technique as appropriate and may include automated exposure control or mA/KV adjustment according to patient size. FINDINGS: Airspace consolidation involves the lingula of the left upper lobe accounting for the lateral left chest opacification on earlier chest film. There is minimal patchy opacification in the left lower lobe. Patient has bilateral small pleural effusions. Small nonspecific mediastinal lymph nodes are present. No pneumothorax. No chest wall mass or abnormal axillary lymphadenopathy seen. Small pericardial effusion present. Moderate fluid retention seen in the subcutaneous fatty tissues. The liver, spleen and pancreas show no suspicious findings on noncontrast imaging. Gallbladder and biliary tree are normal. No hydronephrosis or acute renal process on noncontrast imaging. Isodense masses and pyelonephritis are not excluded on a noncontrast study. No adrenal abnormalities. No urinary bladder abnormality. Uterus and ovaries are grossly normal. Detail is limited due to body habitus. No dilated bowel loops or focal ball bowel wall thickening. Minimal amount of ascites adjacent to the liver. No free air or pneumatosis. No hernia, mass or bulky lymphadenopathy. No significant bone or vascular finding. IMPRESSION: Moderate-sized pneumonia fills the lingula of the left upper lobe. There is minimal patchy pneumonia change at the base of the left lower lobe. Small bilateral pleural effusions are present. No acute finding in the peritoneal or retroperitoneal spaces. The patient has a minimal amount of ascites. Pericardial effusion small in size. Moderate severity fluid retention pattern in the subcutaneous fatty tissues. Conclusions/Impression: A/ SWHETHA likely ATN. Hypokalemia. CKD III with proteinuria. Diastolic CHF, A/C. Acute hypoxic respiratory failure. DM II with CKD. HTN with CKD/ CHF. Anemia in chronic illness. Hypoalbuminemia. Anasarca. Lobar PNA. Morbid Obesity. P/ Continue current POC and Medications. Continue Lasix gtt. Replete potassium. Give Procrit. Transfuse PRBC as needed. Agree with abx. Intubated/ Ventilator support as ordered. No NSAIDs. AM labs. Daily weight.
[2018-06-07] MEDS: INSULIN GLARGINE 100 UNITS/ML SQ SCH (21:00)
[2018-06-08] MEDS: FUROSEMIDE 100 MG in NA CHLORIDE 0.9% 90 ML IV SCH ×4 (02:52→22:32)
[2018-06-08] MEDS: HALOPERIDOL LACT 5 MG/ML INJ IV PRN ×3 (02:52→16:28)
[2018-06-08] MEDS: FENTANYL CITR 100 MCG/2 ML IV PRN ×4 (04:00→17:59)
[2018-06-08] MEDS: VITAL HP 1,000 ML BOT RTH SCH ×2 (04:16→22:33)
[2018-06-08 05:39] LABS: Absolute Lymphocytes (CBC) 1.4 K/uL (0.7-4.9); Absolute Monocytes 0.7 K/uL (0.1-1.3); Absolute Neutrophil 8.2 K/uL (1.8-8.0); Basophils % 0.2 % (0-1.3); Eosinophils % 2.6 % (0-4.4); Hematocrit 22.9 % (36.0-45.0); Lymphocytes % 13.2 % (15.3-44.8); MPV 9.6 fL (7.6-11.3); Monocytes % 6.9 % (3.3-12.3); RBC Red Blood Cell Count 2.62 M/uL (3.86-4.86)
[2018-06-08 06:00] LABS: Phosphorus 3.8 mg/dL (2.5-4.9); Potassium 3.5 mmol/L (3.5-5.1)
[2018-06-08] MEDS: LORazepam 2 MG/ML VIAL IV PRN ×5 (06:17→17:59)
[2018-06-08 06:41] LABS: Anisocytosis 2+; Blood Morphology Comment NOTED (NOT SEEN); Platelet Estimate ADEQ; Poikilocytosis 1+; Toxic Granulation 2+; Urine White Blood Cell Casts OK
[2018-06-08] MEDS: INSULIN LISPRO 100 UNIT/1 ML SQ SCH ×3 (08:18→17:19)
[2018-06-08] MEDS ORDERED: POTASSIUM 25 MEQ EFFERV TAB PO ONE (08:28)
[2018-06-08] MEDS: PANTOPRAZOLE 40 MG INJ IVP SCH (08:35)
[2018-06-08] MEDS: CEFTRIAXONE/SWI 1gm 1 GM/10 ML SYR IV SCH (08:35)
[2018-06-08] MEDS: MULTIVITAMIN TAB PO SCH (08:36)
[2018-06-08] MEDS: METOPROLOL TAR 50 MG TAB PO SCH ×2 (08:36→21:44)
[2018-06-08] MEDS: SPIRONOLACTONE 25 MG TABLET PO SCH ×2 (08:37→21:44)
[2018-06-08] MEDS: CALCITROL 0.25 MCG CAP PO SCH (08:37)
[2018-06-08] MEDS ORDERED: AMILORIDE HCL 5 MG TABLET PO ONE ×2 (09:00→21:00)
[2018-06-08 10:04] LABS: Arterial Blood Carboxyhemoglob 1.9 % (0-1.5); Blood Gas Oxyhemoglobin 86.8 % (94-97)
[2018-06-08] MEDS: METOLAZONE 5 MG TABLET PO SCH (11:12)
--- NOTE | 2018-06-08 11:58 | P.PN ---
Subjective Date of Service: 06/08/18 Chief Complaint: Respiratory failure Subjective: Improving Unable to wean patient off from the ventilator she becomes rather agitated the renal function is improving Review of Systems is unable to be obtained Physical Examination - Vital Signs Temperature: 97.9 F Blood Pressure: 154/82 Pulse: 79 Respirations: 11 Pulse Ox (%): 95 - Physical Exam General: Unresponsive Neck: Supple Respiratory: Clear to auscultation bilaterally Cardiovascular: Edema (Edema has declined) - Studies Medications List Reviewed: Yes Assessment & Plan - Problems (Diagnosis) (1) Respiratory failure Current Visit: Yes Status: Acute Plan: Plan to wean patient off from the ventilator anal function is improving patient continues to remain hypoxic Qualifiers: Chronicity: acute
--- NOTE | 2018-06-08 13:40 | PN ---
Date of Progress Note: 06/08/2018 Subjective: Ms. Patel has been in the hospital since the 31 of May for pneumonia. Yesterday , Dr. Frankel was consulted because of a small pericardial effusion. The patient has hypertension, di abetes, obesity, renal failure, not on hemodialysis yet. No plans regarding the pericardial effusion at this point. It is too small for a tap. Her main treatment should be her pneumonia therapy and r enal failure treatment. No cardiac plans at this point. She remains intubated. There is a plan to extubated today. We will sign off her case. We will be available for questions if the need arises. She is in normal rhythm. NORMAN/MODNinfa Voice ID: [id number] Report ID: [id number]
--- NOTE | 2018-06-08 14:25 | PN ---
Date of Progress Note: 06/08/2018 Subjective: The patient is seen and examined. Chart reviewed and case discussed with RN and Dr. Wallace. The patient very lightly sedated being weaned off ventilator. Medications: List reviewed. Physical Examination: Vital Signs: Temperature 97.9, heart rate 79, blood pressure 156/82, respirations 11, O2 95% on ET tube, 45% FiO2. General: Awake, alert, intubated, following commands. CV: S1 and S2. Regular rate and rhythm. Peripheral pulses present bilaterally. Respiratory: Diminished breath sounds overall, otherwise no crackles or wheezing. No stridor. No use of accessory muscles. Gastrointestinal: Abdomen is soft, nontender, nondistended. Positive bowel sounds. Extremities: No clubbing or cyanosis. The patient does have pedal edema. Neurologic: Nonfocal. Moves all 4 extremities. Follows commands. ET tube in place. Laboratory Data: Sodium 145, potassium 3.5, chloride 112, CO2 24, BUN 62, creatinine 3.79, glucose 144, calcium 7, phosphorus 3.8, magnesium 2. ABG; pH 7.45, pCO2 32.8, pO2 55.7, bicarb 22. WBC 10.6, H and H 7.6 and 22.9, platelets 206, neutrophils 77%. Blood cultures no growth to date. C. diff assay is negative. Assessment And Plan: A 43-year-old female with: 1. Acute respiratory failure, status post mechanical ventilation. The patient had respiratory arrest secondary to volume overload versus pneumonia and possibly a hyperventilation syndrome. Currently now on SIMV. We will attempt to wean. Currently on 55% FiO2. Appreciate Pulmonology input. 2. Dyers-jb-fyltasy diastolic heart failure with volume overload. Continue Lasix drip with albumin. Appreciate Dr. Frankel' input. Monitor I's and O's. Continue fluid restriction. Echocardiogram shows grade 2 diastolic heart failure. 3. Acute pneumonia left lower lobe. Continue with IV antibiotics. Cultures are negative to date. 4. Acute kidney injury. Creatinine is trending down at this point secondary to Lasix drip. However, the patient will need to continue due to volume overload. We will discuss further with Nephrology. Monitor creatinine and avoid nephrotoxins. 5. 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 6. Gastroesophageal reflux disease. Continue PPI. 7. History of pulmonary embolism. 8. Essential hypertension, stable. 9. Morbid obesity, BMI 50. 10. Obesity hypoventilation syndrome. 11. Deep vein thrombosis prophylaxis addressed. The patient is on SCDs. 12. Anemia: Monitor HH. Likely anemia of chronic disease. Plan: Wean off the ventilator as tolerated. Monitor creatinine. /HAIDER Voice ID: [id number] Report ID: [id number] NORMA
[2018-06-08] MEDS: PROPOFOL 1,000 MG/100 ML VIAL IV PRN ×2 (19:31→21:55)
--- NOTE | 2018-06-08 20:11 | P.PN ---
Date of Service: 06/08/18 Vital Signs Temp Pulse Resp BP Pulse Ox 96.8 F 91 H 10 L 163/88 H 94 06/08/18 16:00 06/08/18 19:00 06/08/18 19:00 06/08/18 19:00 06/08/18 19:00 Medications Acetaminophen (Tylenol -Extra Strength) 500 mg PO Q4HP PRN PRN Reason: Pain scale 2-4 (Mild) Stop: 06/30/18 20:28 Last Admin: 05/31/18 23:03 Dose: 500 mg Albuterol Sulfate (Proventil 0.083% Neb Soln) 2.5 mg NEB [id number] PRN PRN Reason: SHORTNESS OF BREATH Stop: 06/30/18 20:28 Amiloride HCl (Midamor) 10 mg PO 1X ONE Stop: 06/08/18 21:01 Calcitriol (Rocaltrol) 0.5 mcg PO DAILY [facility] Stop: 07/03/18 20:01 Last Admin: 06/08/18 08:37 Dose: 0.5 mcg Fentanyl Citrate (Sublimaze) 25 mcg IV Q4HP PRN PRN Reason: Pain scale 8-10 (Severe) Stop: 07/03/18 09:40 Last Admin: 06/08/18 17:59 Dose: 25 mcg Haloperidol Lactate (Haldol) 2 mg IV Q4HP PRN PRN Reason: AGITATION Stop: 07/03/18 09:40 Last Admin: 06/08/18 16:28 Dose: 2 mg Propofol (Diprivan) 1,000 mg in 100 mls @ 0 mls/hr IV PRN PRN; Protocol PRN Reason: SEDATION Stop: 07/03/18 09:40 Last Admin: 06/08/18 19:31 Dose: 100 mls Ceftriaxone Sodium/Sodium Chloride (Rocephin 1 Gm/10 Ml Swi Ivp) 1 gm in 10 mls @ 600 mls/hr IV DAILY [facility]; Protocol Stop: 07/05/18 11:01 Last Admin: 06/08/18 08:35 Dose: 10 mls Furosemide 100 mg/ Sodium (Chloride) 100 mls @ 10 mls/hr IV Q10H [facility] Stop: 07/06/18 18:01 Last Admin: 06/08/18 11:12 Dose: 100 mls Insulin Glargine (Lantus) 10 units SQ BEDTIME [facility] Stop: 07/01/18 21:01 Last Admin: 06/07/18 21:00 Dose: 10 units Insulin Human Lispro (Humalog) 5 unit SQ AC [facility] Stop: 07/01/18 07:31 Last Admin: 06/08/18 17:19 Dose: 5 unit Ipratropium [place] (Atrovent Neb) 0.5 mg NEB [id number] PRN PRN Reason: SHORTNESS OF BREATH Stop: 07/01/18 02:01 Last Admin: 06/01/18 00:00 Dose: 0.5 mg Lorazepam (Ativan) 4 mg IV Q2H PRN PRN Reason: SEDATION Stop: 07/04/18 12:37 Last Admin: 06/08/18 17:59 Dose: 4 mg Metolazone (Zaroxolyn) 10 mg PO 1X [facility] Stop: 07/08/18 11:01 Last Admin: 06/08/18 11:12 Dose: 10 mg Metoprolol Tartrate (Lopressor) 100 mg PO BID [facility] Stop: 07/01/18 09:01 Last Admin: 06/08/18 08:36 Dose: 100 mg Multivitamins/Minerals (Centrum Tablet) 1 tab PO DAILY [facility] Stop: 07/02/18 09:01 Last Admin: 06/08/18 08:36 Dose: 1 tab Nutritional Formula (Vital Hp) 0 ml RTH CONT [facility] Stop: 07/04/18 10:01 Last Admin: 06/08/18 04:16 Dose: 1,000 ml Ondansetron HCl (Zofran) 4 mg IV Q6HP PRN PRN Reason: NAUSEA / VOMITING Stop: 06/30/18 20:28 Last Admin: 06/06/18 22:00 Dose: 4 mg Pantoprazole Sodium (Protonix Inj) 40 mg IVP DAILY [facility] Stop: 07/05/18 09:01 Last Admin: 06/08/18 08:35 Dose: 40 mg Sodium Chloride (Normal Saline Flush) 10 ml IV BID [facility] Stop: 06/30/18 21:01 Last Admin: 06/08/18 08:36 Dose: 10 ml Sodium Chloride (Sodium Chloride 10 Ml Inj) 10 ml IV UD PRN PRN Reason: Diluant Stop: 07/04/18 10:27 Last Admin: 06/05/18 08:23 Dose: 10 ml Spironolactone (Aldactone) 50 mg PO BID [facility] Stop: 07/04/18 22:01 Last Admin: 06/08/18 08:37 Dose: 50 mg Microbiology Results 05/31/18 20:00 Blood - Blood Aerobic Blood Culture - Final No growth in 5 days. 05/31/18 20:00 Blood - Blood Anaerobic Blood Culture - Final No growth in 5 days. 05/31/18 19:45 Blood - Blood Aerobic Blood Culture - Final No growth in 5 days. 05/31/18 19:45 Blood - Blood Anaerobic Blood Culture - Final No growth in 5 days. 05/31/18 12:10 Clean Catch Urine [place] Count - Final >100,000 CFU/ML. 05/31/18 12:10 Clean Catch Urine - Final Assessment/ Plan: Nephrology. No IH/ ROS from the patient due to intubation. Off sedation. Case discussed with the nurse. Good urine output. Vitals, medications, blood work and imaging reviewed in the chart. General: Cooperative, Mild distress HEENT: Atraumatic, Mucous membr. moist/pink Neck: Supple, JVD distended Respiratory: Diminished, Crackles/rales Cardiovascular: Regular rate/rhythm, No rubs, Edema. Anasarca. Gastrointestinal: Soft and benign, Non-distended, No guarding Musculoskeletal: No clubbing, No contractures Integumentary: No rashes, No cyanosis Neurological: Normal speech Greater than 30 minutes patient care. Laboratory Data (last 24 hrs) 05/31/18 17:52: PT 11.8, INR 1.00 05/31/18 17:52: WBC 8.2, Hgb 8.0 L, Hct 24.1 L, Plt Count 199 05/31/18 17:52: Sodium 142, Potassium 3.3 L, BUN 32 H, Creatinine 3.19 H, Glucose 134 H, Magnesium 1.8, Total Bilirubin 0.3, AST 24, ALT 20, Alkaline Phosphatase 81, Lipase 50 L Imagings Data: EXAM DESCRIPTION: CT - Chest Abd Pelvis Wo Con - 05/31/2018 7:04 pm CLINICAL HISTORY: Chest pain, abdominal pain, difficulty breathing COMPARISON: CT chest December 2015 TECHNIQUE: During dynamic enhancement using 100 milliliters nonionic IV contrast, axial 5 millimeter thick images of the chest, abdomen and pelvis were obtained. Biphasic technique was utilized through the abdomen. No oral contrast administered. All CT scans are performed using dose optimization technique as appropriate and may include automated exposure control or mA/KV adjustment according to patient size. FINDINGS: Airspace consolidation involves the lingula of the left upper lobe accounting for the lateral left chest opacification on earlier chest film. There is minimal patchy opacification in the left lower lobe. Patient has bilateral small pleural effusions. Small nonspecific mediastinal lymph nodes are present. No pneumothorax. No chest wall mass or abnormal axillary lymphadenopathy seen. Small pericardial effusion present. Moderate fluid retention seen in the subcutaneous fatty tissues. The liver, spleen and pancreas show no suspicious findings on noncontrast imaging. Gallbladder and biliary tree are normal. No hydronephrosis or acute renal process on noncontrast imaging. Isodense masses and pyelonephritis are not excluded on a noncontrast study. No adrenal abnormalities. No urinary bladder abnormality. Uterus and ovaries are grossly normal. Detail is limited due to body habitus. No dilated bowel loops or focal ball bowel wall thickening. Minimal amount of ascites adjacent to the liver. No free air or pneumatosis. No hernia, mass or bulky lymphadenopathy. No significant bone or vascular finding. IMPRESSION: Moderate-sized pneumonia fills the lingula of the left upper lobe. There is minimal patchy pneumonia change at the base of the left lower lobe. Small bilateral pleural effusions are present. No acute finding in the peritoneal or retroperitoneal spaces. The patient has a minimal amount of ascites. Pericardial effusion small in size. Moderate severity fluid retention pattern in the subcutaneous fatty tissues. Conclusions/Impression: A/ SHWETHA likely ATN. Hypokalemia. CKD III with proteinuria. Diastolic CHF, A/C. Acute hypoxic respiratory failure. DM II with CKD. HTN with CKD/ CHF. Anemia in chronic illness. Hypoalbuminemia. Anasarca. Lobar PNA. Morbid Obesity. P/ Continue current POC and Medications. Continue Lasix gtt. Replete potassium. Give Amiloride prn. Give Procrit. Transfuse PRBC as needed. Agree with abx. Intubated/ Ventilator support as ordered. No NSAIDs. AM labs. Daily weight.
[2018-06-08] MEDS: INSULIN GLARGINE 100 UNITS/ML SQ SCH (21:44)
[2018-06-09] MEDS: PROPOFOL 1,000 MG/100 ML VIAL IV PRN ×5 (00:54→21:50)
[2018-06-09 05:37] LABS: Absolute Lymphocytes (CBC) 1.4 K/uL (0.7-4.9); Absolute Monocytes 0.8 K/uL (0.1-1.3); Absolute Neutrophil 7.4 K/uL (1.8-8.0); Basophils % 0.5 % (0-1.3); Eosinophils % 3.4 % (0-4.4); MPV 8.9 fL (7.6-11.3); Monocytes % 7.8 % (3.3-12.3); RBC Red Blood Cell Count 2.36 M/uL (3.86-4.86)
[2018-06-09 05:41] LABS: Hematocrit 20.7 % (36.0-45.0)
[2018-06-09] MEDS: FENTANYL CITR 100 MCG/2 ML IV PRN ×2 (05:50→19:45)
[2018-06-09] MEDS: FUROSEMIDE 100 MG in NA CHLORIDE 0.9% 90 ML IV SCH ×3 (06:00→16:00)
[2018-06-09 06:10] LABS: Albumin 1.5 g/dL (3.4-5.0); Bilirubin Total 0.2 mg/dL (0.2-1.0); Phosphorus 3.9 mg/dL (2.5-4.9); Potassium 3.9 mmol/L (3.5-5.1); Protein, Total 5.1 g/dL (6.4-8.2)
--- NOTE | 2018-06-09 08:38 | RAD REPORT ---
EXAM DESCRIPTION: RAD - Chest Single View - 06/09/2018 7:13 am CLINICAL HISTORY: Respiratory failure Chest pain. COMPARISON: Chest Single View dated 06/07/2018; Chest Single View dated 06/06/2018; Chest Single View da jamarcus 06/05/2018; Chest Single View dated 06/04/2018 FINDINGS: Portable technique limits examination quality. Moderate airspace opacities are present in both lung bases, unchanged. Tip of the ET tube remains abo ve the kin. Enteric tube descends into the upper abdomen. Right-sided PICC line is unchanged in po sition. Heart size is moderately enlarged. IMPRESSION: Stable chest since 06/07/2018.
[2018-06-09] MEDS: INSULIN LISPRO 100 UNIT/1 ML SQ SCH ×3 (08:44→16:30)
[2018-06-09] MEDS: METOPROLOL TAR 50 MG TAB PO SCH ×2 (08:45→21:51)
[2018-06-09] MEDS: MULTIVITAMIN TAB PO SCH (08:45)
[2018-06-09] MEDS: SPIRONOLACTONE 25 MG TABLET PO SCH ×2 (08:45→21:51)
[2018-06-09] MEDS: PANTOPRAZOLE 40 MG INJ IVP SCH (08:45)
[2018-06-09] MEDS: CALCITROL 0.25 MCG CAP PO SCH (08:46)
[2018-06-09] MEDS: CEFTRIAXONE/SWI 1gm 1 GM/10 ML SYR IV SCH (08:46)
[2018-06-09] MEDS: ONDANSETRON 4 MG/2 ML VIAL IV PRN (10:35)
[2018-06-09] MEDS: LORazepam 2 MG/ML VIAL IV PRN ×2 (10:35→23:11)
[2018-06-09] MEDS: DIPHENOX/ATROP SULF 1 TAB PO PRN (11:13)
[2018-06-09] MEDS: METOLAZONE 5 MG TABLET PO SCH (11:14)
--- NOTE | 2018-06-09 12:14 | P.PN ---
Subjective Date of Service: 06/09/18 Chief Complaint: Respiratory failure Unable to wean the patient off the ventilator patient was had to be put back on a propofol drip Review of Systems is unable to be obtained Physical Examination - Vital Signs Temperature: 97.6 F Blood Pressure: 180/106 Pulse: 81 Respirations: 14 Pulse Ox (%): 92 - Physical Exam General: Alert Neck: Supple Respiratory: Clear to auscultation bilaterally, Diminished - Studies Medications List Reviewed: Yes Assessment & Plan - Problems (Diagnosis) (1) Respiratory failure Current Visit: Yes Status: Acute Plan: Unable to wean the patient off the ventilator will try again today been a progressive decline in her hemoglobin patient's chest x-rays improving agree with LTAC patient has minimal oxygen requirements control blood pressure with hydralazine Dc antibiotic Qualifiers: Chronicity: acute
[2018-06-09 12:45] LABS: Hematocrit 22.1 % (36.0-45.0)
[2018-06-09] MEDS: HYDRALAZINE HCL 10 MG TABLET PO SCH ×2 (13:27→21:52)
--- NOTE | 2018-06-09 16:47 | PN ---
Date of Progress Note: 06/09/2018 Subjective: The patient seen and examined. Chart reviewed and case discussed with RN and Dr. Wallace. Medications: List reviewed. Physical Examination: Vital Signs: Temperature 97.6, heart rate 79, blood pressure 152/76, respirations 12, O2 98% on 40% FiO2 via ET tube. General: Asleep but arousable. Follows commands. CV: S1 and S2. Regular rate and rhythm. Peripheral pulses present. Respiratory: Diminished breath sounds at the bases. Some rhonchi heard. Gastrointestinal: Abdomen is soft, nontender, and nondistended. Positive bowel sounds. Extremities: No clubbing or cyanosis. The patient does have lower extremity edema. Neurologic: The patient opens eyes to name, moves all 4 extremities. Follows commands. Laboratory Data: Sodium 145, potassium 3.9, chloride 111, CO2 25, BUN 62, creatinine 3.67, glucose 180, calcium 7, phosphorus 3.9, magnesium 2, albumin 1.5. WBC 10, H and H 7.1 and 28.7, platelets 256, neutrophils 74%. Blood cultures no growth to date. C. diff is negative. Occult blood also negative. Urine culture shows mixed pancho. Chest x-ray shows moderate air base opacities in both lungs unchanged. ET tube in place. Assessment: A 43-year-old female with: 1. Acute respiratory failure, status post mechanical ventilation, likely related to volume overload, pneumonia, and hypoventilation syndrome, attempting to wean off. Pulmonology on board. 2. Acute on chronic diastolic heart failure with volume overload. Continue with Lasix drip and albumin. Monitor I's and O's. Continue fluid restriction. Echocardiogram shows grade 2 diastolic heart failure. 3. Acute pneumonia, left lower lobe. The patient did have episode of aspiration while she was being turned. Chest x-ray at this point does not show any changes. We will continue antibiotics. Monitor cultures. 4. Acute kidney injury. Creatinine stable around 3. Nephrology on board. 5. 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 6. Gastroesophageal reflux disease. Continue PPI. 7. History of pulmonary embolism. 8. Essential hypertension, stable. 9. Morbid obesity, BMI 50. 10. Obesity hypoventilation syndrome. 11. Deep vein thrombosis prophylaxis. 12. Anemia. Hemoglobin 7.1 today. The patient has normocytic-normochromic anemia, likely due to anemia of chronic disease. We will transfuse for hemoglobin less than 7. Hemoccult is negative. 13. Overall poor prognosis. May need to go to LTAC if difficult to wean. We will discuss with family. 14. Diarrhea. We will hold fleet for now. Continue Lomotil. 15. Severe protein calorie malnutrition SA/MODL Voice ID: [id number] Report ID: [id number] [facility]
--- NOTE | 2018-06-09 17:32 | P.PN ---
Date of Service: 06/09/18 Vital Signs Temp Pulse Resp BP Pulse Ox 97.3 F 76 20 171/88 H 97 06/09/18 16:00 06/09/18 16:00 06/09/18 16:00 06/09/18 16:00 06/09/18 16:00 Medications Acetaminophen (Tylenol -Extra Strength) 500 mg PO Q4HP PRN PRN Reason: Pain scale 2-4 (Mild) Stop: 06/30/18 20:28 Last Admin: 05/31/18 23:03 Dose: 500 mg Albuterol Sulfate (Proventil 0.083% Neb Soln) 2.5 mg NEB [id number] PRN PRN Reason: SHORTNESS OF BREATH Stop: 06/30/18 20:28 Amiloride HCl (Midamor) 10 mg PO 1X ONE Stop: 06/09/18 18:01 Calcitriol (Rocaltrol) 0.5 mcg PO DAILY [facility] Stop: 07/03/18 20:01 Last Admin: 06/09/18 08:46 Dose: Not Given Diphenoxylate HCl/Atropine (Lomotil) 1 tab PO QID PRN PRN Reason: DIARRHEA Stop: 07/09/18 10:41 Last Admin: 06/09/18 11:13 Dose: 1 tab Famotidine (Pepcid) 20 mg PO DAILY [facility] Stop: 07/10/18 09:01 Fentanyl Citrate (Sublimaze) 25 mcg IV Q4HP PRN PRN Reason: Pain scale 8-10 (Severe) Stop: 07/03/18 09:40 Last Admin: 06/09/18 05:50 Dose: 25 mcg Haloperidol Lactate (Haldol) 2 mg IV Q4HP PRN PRN Reason: AGITATION Stop: 07/03/18 09:40 Last Admin: 06/08/18 16:28 Dose: 2 mg Hydralazine HCl (Apresoline) 20 mg PO TID [facility] Stop: 07/09/18 14:01 Last Admin: 06/09/18 13:27 Dose: 20 mg Propofol (Diprivan) 1,000 mg in 100 mls @ 0 mls/hr IV PRN PRN; Protocol PRN Reason: SEDATION Stop: 07/03/18 09:40 Last Admin: 06/09/18 07:47 Dose: 100 mls Furosemide 100 mg/ Sodium (Chloride) 100 mls @ 10 mls/hr IV Q10H [facility] Stop: 07/06/18 18:01 Last Admin: 06/09/18 16:00 Dose: Not Given Insulin Glargine (Lantus) 10 units SQ BEDTIME [facility] Stop: 07/01/18 21:01 Last Admin: 06/08/18 21:44 Dose: 10 units Insulin Human Lispro (Humalog) 5 unit SQ AC [facility] Stop: 07/01/18 07:31 Last Admin: 06/09/18 16:30 Dose: Not Given Ipratropium [place] (Atrovent Neb) 0.5 mg NEB [id number] PRN PRN Reason: SHORTNESS OF BREATH Stop: 07/01/18 02:01 Last Admin: 06/01/18 00:00 Dose: 0.5 mg Lorazepam (Ativan) 4 mg IV Q2H PRN PRN Reason: SEDATION Stop: 07/04/18 12:37 Last Admin: 06/09/18 10:35 Dose: 4 mg Metolazone (Zaroxolyn) 10 mg PO 1X [facility] Stop: 07/08/18 11:01 Last Admin: 06/09/18 11:14 Dose: 10 mg Metolazone (Zaroxolyn) 10 mg PO 1X [facility] Stop: 07/09/18 18:01 Metoprolol Tartrate (Lopressor) 100 mg PO BID [facility] Stop: 07/01/18 09:01 Last Admin: 06/09/18 08:45 Dose: 100 mg Multivitamins/Minerals (Centrum Tablet) 1 tab PO DAILY [facility] Stop: 07/02/18 09:01 Last Admin: 06/09/18 08:45 Dose: 1 tab Nutritional Formula (Vital Hp) 0 ml RTH CONT [facility] Stop: 07/04/18 10:01 Last Admin: 06/08/18 22:33 Dose: 1,000 ml Ondansetron HCl (Zofran) 4 mg IV Q6HP PRN PRN Reason: NAUSEA / VOMITING Stop: 06/30/18 20:28 Last Admin: 06/09/18 10:35 Dose: 4 mg Sodium Chloride (Normal Saline Flush) 10 ml IV BID [facility] Stop: 06/30/18 21:01 Last Admin: 06/09/18 08:48 Dose: 10 ml Sodium Chloride (Sodium Chloride 10 Ml Inj) 10 ml IV UD PRN PRN Reason: Diluant Stop: 07/04/18 10:27 Last Admin: 06/05/18 08:23 Dose: 10 ml Spironolactone (Aldactone) 50 mg PO BID [facility] Stop: 07/04/18 22:01 Last Admin: 06/09/18 08:45 Dose: 50 mg Microbiology Results 05/31/18 20:00 Blood - Blood Aerobic Blood Culture - Final No growth in 5 days. 05/31/18 20:00 Blood - Blood Anaerobic Blood Culture - Final No growth in 5 days. 05/31/18 19:45 Blood - Blood Aerobic Blood Culture - Final No growth in 5 days. 05/31/18 19:45 Blood - Blood Anaerobic Blood Culture - Final No growth in 5 days. 05/31/18 12:10 Clean Catch Urine [place] Count - Final >100,000 CFU/ML. 05/31/18 12:10 Clean Catch Urine - Final Assessment/ Plan: Nephrology. No IH/ ROS from the patient due to intubation/ sedation. Case discussed with the nurse. Good urine output. Difficult to wean off the vent. Episode of vomiting. +Diarrhea Vitals, medications, blood work and imaging reviewed in the chart. General: Cooperative, Mild distress HEENT: Atraumatic, Mucous membr. moist/pink Neck: Supple, JVD distended Respiratory: Diminished, Crackles/rales Cardiovascular: Regular rate/rhythm, No rubs, Edema. Anasarca. Gastrointestinal: Soft and benign, Non-distended, No guarding Musculoskeletal: No clubbing, No contractures Integumentary: No rashes, No cyanosis Neurological: Normal speech Greater than 30 minutes patient care. Laboratory Data (last 24 hrs) 05/31/18 17:52: PT 11.8, INR 1.00 05/31/18 17:52: WBC 8.2, Hgb 8.0 L, Hct 24.1 L, Plt Count 199 05/31/18 17:52: Sodium 142, Potassium 3.3 L, BUN 32 H, Creatinine 3.19 H, Glucose 134 H, Magnesium 1.8, Total Bilirubin 0.3, AST 24, ALT 20, Alkaline Phosphatase 81, Lipase 50 L Imagings Data: EXAM DESCRIPTION: CT - Chest Abd Pelvis Wo Con - 05/31/2018 7:04 pm CLINICAL HISTORY: Chest pain, abdominal pain, difficulty breathing COMPARISON: CT chest December 2015 TECHNIQUE: During dynamic enhancement using 100 milliliters nonionic IV contrast, axial 5 millimeter thick images of the chest, abdomen and pelvis were obtained. Biphasic technique was utilized through the abdomen. No oral contrast administered. All CT scans are performed using dose optimization technique as appropriate and may include automated exposure control or mA/KV adjustment according to patient size. FINDINGS: Airspace consolidation involves the lingula of the left upper lobe accounting for the lateral left chest opacification on earlier chest film. There is minimal patchy opacification in the left lower lobe. Patient has bilateral small pleural effusions. Small nonspecific mediastinal lymph nodes are present. No pneumothorax. No chest wall mass or abnormal axillary lymphadenopathy seen. Small pericardial effusion present. Moderate fluid retention seen in the subcutaneous fatty tissues. The liver, spleen and pancreas show no suspicious findings on noncontrast imaging. Gallbladder and biliary tree are normal. No hydronephrosis or acute renal process on noncontrast imaging. Isodense masses and pyelonephritis are not excluded on a noncontrast study. No adrenal abnormalities. No urinary bladder abnormality. Uterus and ovaries are grossly normal. Detail is limited due to body habitus. No dilated bowel loops or focal ball bowel wall thickening. Minimal amount of ascites adjacent to the liver. No free air or pneumatosis. No hernia, mass or bulky lymphadenopathy. No significant bone or vascular finding. IMPRESSION: Moderate-sized pneumonia fills the lingula of the left upper lobe. There is minimal patchy pneumonia change at the base of the left lower lobe. Small bilateral pleural effusions are present. No acute finding in the peritoneal or retroperitoneal spaces. The patient has a minimal amount of ascites. Pericardial effusion small in size. Moderate severity fluid retention pattern in the subcutaneous fatty tissues. Conclusions/Impression: A/ SHWETHA likely ATN. Hypokalemia. CKD III with proteinuria. Diastolic CHF, A/C. Acute hypoxic respiratory failure. DM II with CKD. HTN with CKD/ CHF. Anemia in chronic illness. Hypoalbuminemia. Anasarca. Lobar PNA. Morbid Obesity. P/ Continue current POC and Medications. Change to interval furosemide. Give Amiloride and Metolazone. Give Procrit. Transfuse PRBC as needed. Agree with abx. Intubated/ Ventilator support as ordered. No NSAIDs. AM labs. Daily weight.
[2018-06-09] MEDS ORDERED: METOLAZONE 5 MG TABLET PO SCH (18:00)
[2018-06-09] MEDS ORDERED: AMILORIDE HCL 5 MG TABLET PO ONE (18:00)
[2018-06-09] MEDS: INSULIN GLARGINE 100 UNITS/ML SQ SCH (21:51)
[2018-06-10] MEDS: FUROSEMIDE 40 MG/4 ML VIAL IV SCH ×4 (00:43→18:37)
[2018-06-10] MEDS: PROPOFOL 1,000 MG/100 ML VIAL IV PRN ×3 (00:44→07:22)
[2018-06-10 05:56] LABS: Absolute Lymphocytes (CBC) 1.6 K/uL (0.7-4.9); Absolute Monocytes 0.8 K/uL (0.1-1.3); Absolute Neutrophil 5.3 K/uL (1.8-8.0); Basophils % 0.3 % (0-1.3); Eosinophils % 5.8 % (0-4.4); Hematocrit 20.3 % (36.0-45.0); Lymphocytes % 19.9 % (15.3-44.8); MPV 8.5 fL (7.6-11.3); Monocytes % 9.8 % (3.3-12.3); RBC Red Blood Cell Count 2.32 M/uL (3.86-4.86)
[2018-06-10 05:57] LABS: Albumin 1.5 g/dL (3.4-5.0); Bilirubin Total 0.3 mg/dL (0.2-1.0); Magnesium 2.2 mg/dL (1.8-2.4); Phosphorus 4.1 mg/dL (2.5-4.9); Potassium 3.6 mmol/L (3.5-5.1); Protein, Total 5.4 g/dL (6.4-8.2)
[2018-06-10 07:41] LABS: HBsAG Nonreactive (Nonreactive)
--- NOTE | 2018-06-10 08:01 | RAD REPORT ---
EXAM DESCRIPTION: RAD - Chest Single View - 06/10/2018 6:49 am CLINICAL HISTORY: Respiratory failure COMPARISON: June 07 TECHNIQUE: AP portable chest image was obtained 0642 hours . FINDINGS: ET tube and feeding tube remain in place. Right upper extremity PICC line remains in place as well. No new or progressive right lung field finding. Dense left base opacification remains. Left hemidiaphragm remains obscured. Prominent heart size is stable. Vasculature within normal limits. No pneumothorax or enlarging pleural effusion. No acute bony abnormality seen. No acute aortic findings suspected. IMPRESSION: Dense opacification left base remains. No new or progressive lung parenchymal process. Tubes and lines are stable.
--- NOTE | 2018-06-10 08:38 | P.PN ---
Subjective Date of Service: 06/10/18 Chief Complaint: Respiratory failure Patient is clinically improving unable to wean off and extubate she does desat the chest x-rays now cleared renal function is improving steadily still requiring propofol Review of Systems is unable to be obtained Physical Examination - Vital Signs Temperature: 97.5 F Blood Pressure: 162/78 Pulse: 67 Respirations: 10 Pulse Ox (%): 97 - Physical Exam General: Unresponsive Respiratory: Clear to auscultation bilaterally Cardiovascular: Edema (Edema has improved) - Studies Medications List Reviewed: Yes Assessment & Plan - Problems (Diagnosis) (1) Respiratory failure Current Visit: Yes Status: Acute Plan: Patient is 43 years of age admitted with respiratory failure chest x-ray is now cleared plan to wean off and extubate renal function is improving no evidence of sepsis also anemic may benefit from a transfusion blood pressure is also improved continue to wean and extubate today Qualifiers: Chronicity: acute
[2018-06-10] MEDS ORDERED: POTASSIUM 25 MEQ EFFERV TAB PO ONE (08:45)
[2018-06-10] MEDS ORDERED: AMILORIDE HCL 5 MG TABLET PO ONE ×2 (09:00→20:00)
[2018-06-10] MEDS: CALCITROL 0.25 MCG CAP PO SCH (09:00)
[2018-06-10] MEDS: MULTIVITAMIN TAB PO SCH ×2 (09:00→09:20)
[2018-06-10] MEDS: INSULIN LISPRO 100 UNIT/1 ML SQ SCH ×3 (09:19→16:30)
[2018-06-10] MEDS: HYDRALAZINE HCL 10 MG TABLET PO SCH ×3 (09:20→20:28)
[2018-06-10] MEDS: SPIRONOLACTONE 25 MG TABLET PO SCH ×2 (09:20→20:27)
[2018-06-10] MEDS: FAMOTIDINE 20 MG TAB PO SCH (09:21)
[2018-06-10] MEDS: METOPROLOL TAR 50 MG TAB PO SCH ×2 (09:21→20:28)
[2018-06-10] MEDS: DIPHENOX/ATROP SULF 1 TAB PO PRN (09:22)
[2018-06-10] MEDS: METOLAZONE 5 MG TABLET PO SCH (09:22)
[2018-06-10 09:25] LABS: Arterial Blood Carboxyhemoglob 1.6 % (0-1.5); Blood Gas Oxyhemoglobin 92.3 % (94-97); Blood O2 Saturation 94.5 % (92-98.5)
[2018-06-10] MEDS: ONDANSETRON 4 MG/2 ML VIAL IV PRN (10:15)
--- NOTE | 2018-06-10 11:07 | RAD REPORT ---
EXAM DESCRIPTION: RAD - Abdomen 1 View (KUB) - 06/10/2018 10:56 am CLINICAL HISTORY: Top of feeding tube placement COMPARISON: None. FINDINGS: Feeding tube has been placed. Tip is in the left upper quadrant corresponding to body of t he stomach.
[2018-06-10] MEDS: IPRATROPIUM BROM 0.5MG/2.5ML NEB PRN (13:20)
[2018-06-10] MEDS ORDERED: NA CHLORIDE 0.9% 250 ML ONE (13:22)
--- NOTE | 2018-06-10 15:53 | PN ---
Date of Progress Note: 06/10/2018 Subjective: The patient seen and examined. Chart reviewed and case discussed with RN. The patient still on some minimal sedation. Will be attempted to be weaned off ventilator again today. The sarah ent still having significant amount of diarrhea. Blood pressure has been on the high side. The sarah ent had another episode of emesis. Medications: List reviewed. Physical Examination: Vital Signs: Temperature 97.5, heart rate 67, blood pressure 162/78, respirations 10, O2 97% on ET t ube, 35% FiO2. General: Asleep but arousable. Opens eyes to name. Moves all 4 extremities. Does follow commands. CV: S1 and S2. Regular rate and rhythm. Peripheral pulses present. Respiratory: Diminished breath sounds bilaterally. Gastrointestinal: Abdomen is soft, nontender, nondistended. Positive bowel sounds. Extremities: No clubbing or cyanosis. Pedal edema is present. Neurologic: Moves all 4 extremities. Opens eyes to voice, intubated. Follows commands. Laboratory Data: Sodium 145, potassium 3.6, chloride 111, CO2 26, BUN 63, creatinine 3.65, glucose 1 25, calcium 7.4, albumin 1.5. WBC 8.2, H and H 6.8 and 20.3, platelets 323, neutrophils 64%. Blood cultures no growth to date. C. diff is negative. KUB shows feeding tube has been placed, tip in the left upper quadrant corresponding to the body of the stomach. Chest x-ray, personally reviewed, edwin ws dense opacification left base remains, no new or progressive lung parenchymal process. Assessment And Plan: This is a 43-year-old female with: 1.Acute respiratory failure, on mechanical ventilation secondary to volume overload, pneumonia, hypo ventilation syndrome. We will continue to wean off. Appreciate Dr. Wallace's input. 2.Scwbm-[id number] diastolic heart failure with volume overload. Continue Lasix drip and albumin. Monitor weight. Continue fluid restriction. Monitor I's and O's. The patient has a grade 2 diastol ic dysfunction. 3.Acute pneumonia left lower lobe. Chest x-ray, which did not show much change. No new progressive findings either. We will continue antibiotics. Cultures are negative. 4.Acute kidney injury. Creatinine stabilized around 3. Continue to monitor. Avoid NSAIDs. Nephro logy on board. 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 Continue Accu-Ivory ks and continue with sliding scale. 6.Gastroesophageal reflux disease. We will continue PPI. 7.Diarrhea, unclear etiology. C diff is negative. We will obtain stool culture and monitor. We wi ll give Lomotil. 8.History of pulmonary embolism. 9.Essential hypertension, stable. The patient has been requiring adjustments in her blood pressure medications. 10.Morbid obesity, BMI 50. 11.Obesity hypoventilation syndrome. 12.Anemia, normocytic-normochromic. Hemoglobin down to 6.8 today. Discussed case with Dr. Jones yesterday. The patient has had a full GI workup as an outpatient including EGD, colonoscopy, and Pi llCam with no significant findings. We will transfuse 1 unit of PRBCs and monitor. 13.Deep venous thrombosis prophylaxis, SCDs. Plan: Hold NG tube feeds for now. Monitor H and H. Overall poor prognosis. We will attempt to wea n off ventilator as tolerated. LTAC referral. MIR Voice ID: [id number] Report ID: [id number]
--- NOTE | 2018-06-10 18:35 | P.PN ---
Date of Service: 06/10/18 Vital Signs Temp Pulse Resp BP Pulse Ox 98.5 F 103 H 18 182/99 H 95 06/10/18 16:00 06/10/18 18:00 06/10/18 18:00 06/10/18 18:00 06/10/18 18:00 Medications Acetaminophen (Tylenol -Extra Strength) 500 mg PO Q4HP PRN PRN Reason: Pain scale 2-4 (Mild) Stop: 06/30/18 20:28 Last Admin: 05/31/18 23:03 Dose: 500 mg Albuterol Sulfate (Proventil 0.083% Neb Soln) 2.5 mg NEB [id number] PRN PRN Reason: SHORTNESS OF BREATH Stop: 06/30/18 20:28 Last Admin: 06/10/18 13:20 Dose: 2.5 mg Amiloride HCl (Midamor) 10 mg PO 1X ONE Stop: 06/10/18 20:01 Calcitriol (Rocaltrol) 0.5 mcg PO DAILY [facility] Stop: 07/03/18 20:01 Last Admin: 06/10/18 09:00 Dose: Not Given Carvedilol (Coreg) 6.25 mg PO BID [facility] Stop: 07/10/18 21:01 Diphenoxylate HCl/Atropine (Lomotil) 1 tab PO QID PRN PRN Reason: DIARRHEA Stop: 07/09/18 10:41 Last Admin: 06/10/18 09:22 Dose: 1 tab Famotidine (Pepcid) 20 mg PO DAILY [facility] Stop: 07/10/18 09:01 Last Admin: 06/10/18 09:21 Dose: 20 mg Fentanyl Citrate (Sublimaze) 25 mcg IV Q4HP PRN PRN Reason: Pain scale 8-10 (Severe) Stop: 07/03/18 09:40 Last Admin: 06/09/18 19:45 Dose: 25 mcg Furosemide (Lasix) 80 mg IV Q6H [facility] Stop: 07/09/18 23:59 Last Admin: 06/10/18 15:00 Dose: 80 mg Haloperidol Lactate (Haldol) 2 mg IV Q4HP PRN PRN Reason: AGITATION Stop: 07/03/18 09:40 Last Admin: 06/08/18 16:28 Dose: 2 mg Hydralazine HCl (Apresoline) 20 mg PO TID [facility] Stop: 07/09/18 14:01 Last Admin: 06/10/18 14:59 Dose: 20 mg Propofol (Diprivan) 1,000 mg in 100 mls @ 0 mls/hr IV PRN PRN; Protocol PRN Reason: SEDATION Stop: 07/03/18 09:40 Last Admin: 06/10/18 07:22 Dose: 100 mls Insulin Glargine (Lantus) 10 units SQ BEDTIME [facility] Stop: 07/01/18 21:01 Last Admin: 06/09/18 21:51 Dose: 10 units Insulin Human Lispro (Humalog) 5 unit SQ AC [facility] Stop: 07/01/18 07:31 Last Admin: 06/10/18 16:30 Dose: Not Given Ipratropium [place] (Atrovent Neb) 0.5 mg NEB [id number] PRN PRN Reason: SHORTNESS OF BREATH Stop: 07/01/18 02:01 Last Admin: 06/10/18 13:20 Dose: 0.5 mg Lorazepam (Ativan) 4 mg IV Q2H PRN PRN Reason: SEDATION Stop: 07/04/18 12:37 Last Admin: 06/09/18 23:11 Dose: 4 mg Metolazone (Zaroxolyn) 10 mg PO 1X [facility] Stop: 07/10/18 09:01 Last Admin: 06/10/18 09:22 Dose: 10 mg Metolazone (Zaroxolyn) 10 mg PO 1X ONE Stop: 06/10/18 20:01 Metoprolol Tartrate (Lopressor) 100 mg PO BID [facility] Stop: 07/01/18 09:01 Last Admin: 06/10/18 09:21 Dose: 100 mg Multivitamins/Minerals (Centrum Tablet) 1 tab PO DAILY [facility] Stop: 07/02/18 09:01 Last Admin: 06/10/18 09:20 Dose: 1 tab Nutritional Formula (Vital Hp) 0 ml RTH CONT [facility] Stop: 07/04/18 10:01 Last Admin: 06/08/18 22:33 Dose: 1,000 ml Ondansetron HCl (Zofran) 4 mg IV Q6HP PRN PRN Reason: NAUSEA / VOMITING Stop: 06/30/18 20:28 Last Admin: 06/10/18 10:15 Dose: 4 mg Sodium Chloride (Normal Saline Flush) 10 ml IV BID [facility] Stop: 06/30/18 21:01 Last Admin: 06/10/18 09:21 Dose: 10 ml Sodium Chloride (Sodium Chloride 10 Ml Inj) 10 ml IV UD PRN PRN Reason: Diluant Stop: 07/04/18 10:27 Last Admin: 06/05/18 08:23 Dose: 10 ml Spironolactone (Aldactone) 50 mg PO BID [facility] Stop: 07/04/18 22:01 Last Admin: 06/10/18 09:20 Dose: 50 mg Microbiology Results 05/31/18 20:00 Blood - Blood Aerobic Blood Culture - Final No growth in 5 days. 05/31/18 20:00 Blood - Blood Anaerobic Blood Culture - Final No growth in 5 days. 05/31/18 19:45 Blood - Blood Aerobic Blood Culture - Final No growth in 5 days. 05/31/18 19:45 Blood - Blood Anaerobic Blood Culture - Final No growth in 5 days. 05/31/18 12:10 Clean Catch Urine [place] Count - Final >100,000 CFU/ML. 05/31/18 12:10 Clean Catch Urine - Final Assessment/ Plan: Nephrology. No IH/ ROS from the patient due to intubation/ sedation. Case discussed with the nurse. Good urine output. Difficult to wean off the vent. Another episode of vomiting. Tube feeds on hold due to diarrhea. Vitals, medications, blood work and imaging reviewed in the chart. General: Cooperative, Mild distress HEENT: Atraumatic, Mucous membr. moist/pink Neck: Supple, JVD distended Respiratory: Diminished, Crackles/rales Cardiovascular: Regular rate/rhythm, No rubs, Edema. Anasarca. Gastrointestinal: Soft and benign, Non-distended, No guarding Musculoskeletal: No clubbing, No contractures Integumentary: No rashes, No cyanosis Neurological: Normal speech Greater than 30 minutes patient care. Laboratory Data (last 24 hrs) 05/31/18 17:52: PT 11.8, INR 1.00 05/31/18 17:52: WBC 8.2, Hgb 8.0 L, Hct 24.1 L, Plt Count 199 05/31/18 17:52: Sodium 142, Potassium 3.3 L, BUN 32 H, Creatinine 3.19 H, Glucose 134 H, Magnesium 1.8, Total Bilirubin 0.3, AST 24, ALT 20, Alkaline Phosphatase 81, Lipase 50 L Imagings Data: EXAM DESCRIPTION: CT - Chest Abd Pelvis Wo Con - 05/31/2018 7:04 pm CLINICAL HISTORY: Chest pain, abdominal pain, difficulty breathing COMPARISON: CT chest December 2015 TECHNIQUE: During dynamic enhancement using 100 milliliters nonionic IV contrast, axial 5 millimeter thick images of the chest, abdomen and pelvis were obtained. Biphasic technique was utilized through the abdomen. No oral contrast administered. All CT scans are performed using dose optimization technique as appropriate and may include automated exposure control or mA/KV adjustment according to patient size. FINDINGS: Airspace consolidation involves the lingula of the left upper lobe accounting for the lateral left chest opacification on earlier chest film. There is minimal patchy opacification in the left lower lobe. Patient has bilateral small pleural effusions. Small nonspecific mediastinal lymph nodes are present. No pneumothorax. No chest wall mass or abnormal axillary lymphadenopathy seen. Small pericardial effusion present. Moderate fluid retention seen in the subcutaneous fatty tissues. The liver, spleen and pancreas show no suspicious findings on noncontrast imaging. Gallbladder and biliary tree are normal. No hydronephrosis or acute renal process on noncontrast imaging. Isodense masses and pyelonephritis are not excluded on a noncontrast study. No adrenal abnormalities. No urinary bladder abnormality. Uterus and ovaries are grossly normal. Detail is limited due to body habitus. No dilated bowel loops or focal ball bowel wall thickening. Minimal amount of ascites adjacent to the liver. No free air or pneumatosis. No hernia, mass or bulky lymphadenopathy. No significant bone or vascular finding. IMPRESSION: Moderate-sized pneumonia fills the lingula of the left upper lobe. There is minimal patchy pneumonia change at the base of the left lower lobe. Small bilateral pleural effusions are present. No acute finding in the peritoneal or retroperitoneal spaces. The patient has a minimal amount of ascites. Pericardial effusion small in size. Moderate severity fluid retention pattern in the subcutaneous fatty tissues. Conclusions/Impression: A/ SHWETHA likely ATN. Hypokalemia. CKD III with proteinuria. Diastolic CHF, A/C. Acute hypoxic respiratory failure. DM II with CKD. HTN with CKD/ CHF. Anemia in chronic illness. Hypoalbuminemia. Anasarca. Lobar PNA. Morbid Obesity. P/ Continue current POC and Medications. Furosemide and spironolactone as ordered. Give Amiloride and Metolazone prn. Transfuse PRBC as needed. Agree with abx. Intubated/ Ventilator support as ordered. No NSAIDs. AM labs. Daily weight.
[2018-06-10] MEDS ORDERED: METOLAZONE 5 MG TABLET PO ONE (20:00)
[2018-06-10] MEDS: CARVEDILOL 6.25 MG TAB PO SCH (21:00)
[2018-06-10] MEDS: INSULIN GLARGINE 100 UNITS/ML SQ SCH (21:00)
[2018-06-10 21:13] LABS: Hematocrit 27.1 % (36.0-45.0)
[2018-06-10] MEDS ORDERED: ALTEPLASE 2 MG/VIAL IV ONE (21:56)
[2018-06-10] MEDS ORDERED: WATER FOR INJ,STERILE 10 ML ONE (21:57)
[2018-06-10] MEDS: ALTEPLASE 2 MG/VIAL IV SCH (22:00)
[2018-06-11] MEDS: FUROSEMIDE 40 MG/4 ML VIAL IV SCH ×4 (00:19→17:59)
[2018-06-11] MEDS: ONDANSETRON 4 MG/2 ML VIAL IV PRN (03:45)
[2018-06-11 05:41] LABS: Absolute Lymphocytes (CBC) 1.3 K/uL (0.7-4.9); Absolute Monocytes 1.1 K/uL (0.1-1.3); Absolute Neutrophil 7.6 K/uL (1.8-8.0); Basophils % 0.4 % (0-1.3); Eosinophils % 3.5 % (0-4.4); Hematocrit 24.3 % (36.0-45.0); Lymphocytes % 12.7 % (15.3-44.8); MPV 8.3 fL (7.6-11.3); Monocytes % 10.3 % (3.3-12.3)
[2018-06-11 05:54] LABS: Albumin 1.7 g/dL (3.4-5.0); Bilirubin Total 0.3 mg/dL (0.2-1.0); Potassium 3.8 mmol/L (3.5-5.1); Protein, Total 5.5 g/dL (6.4-8.2)
[2018-06-11] MEDS: INSULIN LISPRO 100 UNIT/1 ML SQ SCH ×3 (07:30→16:30)
--- NOTE | 2018-06-11 08:24 | RAD REPORT ---
EXAM DESCRIPTION: RAD - Chest Single View - 06/11/2018 6:37 am CLINICAL HISTORY: Respiratory failure Chest pain. COMPARISON: Abdomen 1 View (KUB) dated 06/10/2018; Chest Single View dated 06/10/2018; Chest Single View dated 06/09/2018; Chest Single View dated 06/07/2018 FINDINGS: Portable technique limits examination quality. Enteric tube is extends into the stomach. The ET tube tip is not seen and may have been removed. Righ t-sided PICC line is stable. Mild improvement in bilateral pulmonary aeration since comparative study noted. The heart is moderately prominent.
[2018-06-11] MEDS: CALCITROL 0.25 MCG CAP PO SCH (09:00)
[2018-06-11] MEDS: METOPROLOL TAR 50 MG TAB PO SCH ×2 (09:09→20:03)
[2018-06-11] MEDS: CARVEDILOL 6.25 MG TAB PO SCH (09:09)
[2018-06-11] MEDS: METOLAZONE 5 MG TABLET PO SCH (09:10)
[2018-06-11] MEDS: SPIRONOLACTONE 25 MG TABLET PO SCH ×2 (09:10→20:06)
[2018-06-11] MEDS: MULTIVITAMIN TAB PO SCH (09:11)
[2018-06-11] MEDS: HYDRALAZINE HCL 10 MG TABLET PO SCH ×3 (09:11→20:03)
[2018-06-11] MEDS: FAMOTIDINE 20 MG TAB PO SCH (09:11)
--- NOTE | 2018-06-11 10:09 | P.PN ---
Subjective Date of Service: 06/11/18 Chief Complaint: Respiratory failure Patient doing well was extubated yesterday she is alert responsive wants to have the aliya removed Review of Systems General: Weakness Respiratory: Shortness of Breath Physical Examination - Vital Signs Temperature: 98.7 F Blood Pressure: 188/85 Pulse: 101 Respirations: 18 Pulse Ox (%): 96 - Physical Exam General: Alert, In no apparent distress Neck: Supple Respiratory: Clear to auscultation bilaterally Cardiovascular: Edema (Edema has declined) - Studies Medications List Reviewed: Yes Assessment & Plan - Problems (Diagnosis) (1) Respiratory failure Current Visit: Yes Status: Acute Plan: Patient is 43 years of age admitted with respiratory failure secondary to volume overload is currently doing better patient was extubated yesterday remove that tube feeding blood pressure elevated transfer to the floor renal function improving I have increased the Coreg to 12.5 mg twice a day and hydralazine increased to 30 mg 3 times a day Qualifiers: Chronicity: acute
[2018-06-11 12:24] VITALS: O2SAT 99
[2018-06-11] MEDS ORDERED: POTASSIUM 25 MEQ EFFERV TAB PO ONE ×2 (14:00→17:00)
--- NOTE | 2018-06-11 15:22 | PN ---
Date of Progress Note: 06/11/2018 Subjective: The patient is seen and examined. Chart reviewed, and case discussed with RN. The patient was able to be extubated yesterday. Still having multiple episodes of diarrhea. Wanting to have some foods, however, did not pass her bedside swallow study. Medications: List reviewed. Physical Examination: Vital Signs: Temperature 98.7; heart rate 101; blood pressure 188/85; respirations 18; O2 of 96% on nasal cannula, 2 L. General: Awake, alert, oriented x3. Some acute distress. An ill-appearing, morbidly obese female. CV: S1 and S2. Sinus tachycardia. Peripheral pulses present. Respiratory: Diminished breath sounds bilaterally. No wheezing. Gastrointestinal: Abdomen is soft, nontender, nondistended. Positive bowel sounds. Extremities: No clubbing or cyanosis. The patient has pedal edema. Neurologic: Nonfocal. Laboratory Data: Sodium 145, potassium 3.8, chloride 110, CO2 of 25, BUN 61, creatinine 3.56, glucose 85, calcium 7.8, albumin 1.7. WBC 10.4, H and H 8.2 and 24.3, platelets 371. Blood cultures, no growth to date. Stool occult is negative. Chest x-ray, personally reviewed, shows a right-sided PICC line stable, mild improvement in bilateral lung aeration since comparative study. Assessment: A 43-year-old female with: 1. Acute respiratory failure, now off ventilator secondary to volume overload , pneumonia, and hypoventilation syndrome. Pulmonology on board. 2. Ktrbp-gn-cjjyijb diastolic heart failure with volume overload. The patient now off Lasix drip. On IV Lasix. 3. Pneumonia, left lower lobe. Chest x-ray shows some mild improvement. We will continue to monitor. Cultures are negative. Continue antibiotics. 4. Acute kidney injury. Creatinine improving slightly. We will continue to monitor and avoid NSAIDs. Appreciate Nephrology input. 5. 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 We will continue Accu-Cheks and sliding scale insulin. 6. Gastroesophageal reflux disease. Continue PPI. 7. Dysphagia, likely due to prolonged intubation. We will obtain Speech Therapy evaluation. 8. Diarrhea, unclear etiology. We will follow up with stool culture and ova and parasites. Clostridium difficile is negative. Continue with Lomotil. 9. History of pulmonary embolism. 10. Essential hypertension, not well controlled. Continue p.r.n. medications. 11. Morbid obesity, BMI 48. 12. Obesity hypoventilation syndrome. 13. Normocytic normochromic anemia. The patient received 2 units of PRBCs. The patient has had previous workup. GI on board. Hemoccult is negative. May be related to chronic conditions. 14. Deep venous thrombosis prophylaxis with SCDs due to anemia. Plan: Speech Therapy evaluation. Subsequent removal of NG tube if able to tolerate modified diet. Likely step down from ICU in the next 24 hours once she is more stable. /HAIDER Voice ID: [id number] Report ID: [id number] NORMA
[2018-06-11] MEDS ORDERED: METOLAZONE 5 MG TABLET PO ONE (16:00)
[2018-06-11] MEDS ORDERED: AMILORIDE HCL 5 MG TABLET PO ONE (17:00)
[2018-06-11 18:33] VITALS: BP 192/94; TEMP 98.2
[2018-06-11] MEDS: INSULIN GLARGINE 100 UNITS/ML SQ SCH (20:13)
[2018-06-11] MEDS: ALTEPLASE 2 MG/VIAL IV SCH (20:13)
[2018-06-11] MEDS ORDERED: CARVEDILOL 6.25 MG TAB PO SCH (21:00)
--- NOTE | 2018-06-11 21:24 | P.PN ---
Date of Service: 06/11/18 Vital Signs Temp Pulse Resp BP Pulse Ox 98.2 F 100 H 20 192/94 H 92 06/11/18 15:45 06/11/18 20:06 06/11/18 15:45 06/11/18 17:59 06/11/18 15:45 Medications Acetaminophen (Tylenol -Extra Strength) 500 mg PO Q4HP PRN PRN Reason: Pain scale 2-4 (Mild) Stop: 06/30/18 20:28 Last Admin: 05/31/18 23:03 Dose: 500 mg Albuterol Sulfate (Proventil 0.083% Neb Soln) 2.5 mg NEB [id number] PRN PRN Reason: SHORTNESS OF BREATH Stop: 06/30/18 20:28 Last Admin: 06/10/18 13:20 Dose: 2.5 mg Alteplase, Recombinant (Cathflo Activase) 2 mg IV 1X [facility] Stop: 07/10/18 22:01 Last Admin: 06/11/18 20:13 Dose: Not Given Calcitriol (Rocaltrol) 0.5 mcg PO DAILY [facility] Stop: 07/03/18 20:01 Last Admin: 06/11/18 09:00 Dose: Not Given Diphenoxylate HCl/Atropine (Lomotil) 1 tab PO QID PRN PRN Reason: DIARRHEA Stop: 07/09/18 10:41 Last Admin: 06/10/18 09:22 Dose: 1 tab Fentanyl Citrate (Sublimaze) 25 mcg IV Q4HP PRN PRN Reason: Pain scale 8-10 (Severe) Stop: 07/03/18 09:40 Last Admin: 06/09/18 19:45 Dose: 25 mcg Furosemide (Lasix) 80 mg IV Q6H [facility] Stop: 07/09/18 23:59 Last Admin: 06/11/18 17:59 Dose: 80 mg Hydralazine HCl (Apresoline) 30 mg PO TID [facility] Stop: 07/11/18 14:01 Last Admin: 06/11/18 20:03 Dose: 30 mg Insulin Glargine (Lantus) 10 units SQ BEDTIME [facility] Stop: 07/01/18 21:01 Last Admin: 06/11/18 20:13 Dose: Not Given Insulin Human Lispro (Humalog) 5 unit SQ AC [facility] Stop: 07/01/18 07:31 Last Admin: 06/11/18 16:30 Dose: Not Given Metolazone (Zaroxolyn) 10 mg PO 1X [facility] Stop: 07/10/18 09:01 Last Admin: 06/11/18 09:10 Dose: 10 mg Metoprolol Tartrate (Lopressor) 100 mg PO BID [facility] Stop: 07/01/18 09:01 Last Admin: 06/11/18 20:03 Dose: 100 mg Multivitamins/Minerals (Centrum Tablet) 1 tab PO DAILY [facility] Stop: 07/02/18 09:01 Last Admin: 06/11/18 09:11 Dose: 1 tab Nutritional Formula (Vital Hp) 0 ml RTH CONT [facility] Stop: 07/04/18 10:01 Last Admin: 06/08/18 22:33 Dose: 1,000 ml Ondansetron HCl (Zofran) 4 mg IV Q6HP PRN PRN Reason: NAUSEA / VOMITING Stop: 06/30/18 20:28 Last Admin: 06/11/18 03:45 Dose: 4 mg Sodium Chloride (Normal Saline Flush) 10 ml IV BID [facility] Stop: 06/30/18 21:01 Last Admin: 06/11/18 09:11 Dose: 10 ml Sodium Chloride (Sodium Chloride 10 Ml Inj) 10 ml IV UD PRN PRN Reason: Diluant Stop: 07/04/18 10:27 Last Admin: 06/05/18 08:23 Dose: 10 ml Spironolactone (Aldactone) 50 mg PO BID [facility] Stop: 07/04/18 22:01 Last Admin: 06/11/18 20:06 Dose: 50 mg Microbiology Results 05/31/18 20:00 Blood - Blood Aerobic Blood Culture - Final No growth in 5 days. 05/31/18 20:00 Blood - Blood Anaerobic Blood Culture - Final No growth in 5 days. 05/31/18 19:45 Blood - Blood Aerobic Blood Culture - Final No growth in 5 days. 05/31/18 19:45 Blood - Blood Anaerobic Blood Culture - Final No growth in 5 days. 05/31/18 12:10 Clean Catch Urine [place] Count - Final >100,000 CFU/ML. 05/31/18 12:10 Clean Catch Urine - Final Assessment/ Plan: Nephrology. Extubated today. Feeling better. Wants the NGT out jesse. CPS improved with CP or SOB. +ESPARZA +Fatigue and weakness. No acute events overnight. Vitals, medications, blood work and imaging reviewed in the chart. General: Cooperative, NAD HEENT: Atraumatic, Mucous membr. moist/pink Neck: Supple, JVD distended Respiratory: Diminished, Crackles/rales Cardiovascular: Regular rate/rhythm, No rubs, Edema. Anasarca. Gastrointestinal: Soft and benign, Non-distended, No guarding Musculoskeletal: No clubbing, No contractures Integumentary: No rashes, No cyanosis Neurological: Normal speech Laboratory Data (last 24 hrs) 05/31/18 17:52: PT 11.8, INR 1.00 05/31/18 17:52: WBC 8.2, Hgb 8.0 L, Hct 24.1 L, Plt Count 199 05/31/18 17:52: Sodium 142, Potassium 3.3 L, BUN 32 H, Creatinine 3.19 H, Glucose 134 H, Magnesium 1.8, Total Bilirubin 0.3, AST 24, ALT 20, Alkaline Phosphatase 81, Lipase 50 L Imagings Data: EXAM DESCRIPTION: CT - Chest Abd Pelvis Wo Con - 05/31/2018 7:04 pm CLINICAL HISTORY: Chest pain, abdominal pain, difficulty breathing COMPARISON: CT chest December 2015 TECHNIQUE: During dynamic enhancement using 100 milliliters nonionic IV contrast, axial 5 millimeter thick images of the chest, abdomen and pelvis were obtained. Biphasic technique was utilized through the abdomen. No oral contrast administered. All CT scans are performed using dose optimization technique as appropriate and may include automated exposure control or mA/KV adjustment according to patient size. FINDINGS: Airspace consolidation involves the lingula of the left upper lobe accounting for the lateral left chest opacification on earlier chest film. There is minimal patchy opacification in the left lower lobe. Patient has bilateral small pleural effusions. Small nonspecific mediastinal lymph nodes are present. No pneumothorax. No chest wall mass or abnormal axillary lymphadenopathy seen. Small pericardial effusion present. Moderate fluid retention seen in the subcutaneous fatty tissues. The liver, spleen and pancreas show no suspicious findings on noncontrast imaging. Gallbladder and biliary tree are normal. No hydronephrosis or acute renal process on noncontrast imaging. Isodense masses and pyelonephritis are not excluded on a noncontrast study. No adrenal abnormalities. No urinary bladder abnormality. Uterus and ovaries are grossly normal. Detail is limited due to body habitus. No dilated bowel loops or focal ball bowel wall thickening. Minimal amount of ascites adjacent to the liver. No free air or pneumatosis. No hernia, mass or bulky lymphadenopathy. No significant bone or vascular finding. IMPRESSION: Moderate-sized pneumonia fills the lingula of the left upper lobe. There is minimal patchy pneumonia change at the base of the left lower lobe. Small bilateral pleural effusions are present. No acute finding in the peritoneal or retroperitoneal spaces. The patient has a minimal amount of ascites. Pericardial effusion small in size. Moderate severity fluid retention pattern in the subcutaneous fatty tissues. Conclusions/Impression: A/ SHWETHA likely ATN. Hypokalemia. CKD III with proteinuria. Diastolic CHF, A/C. Acute hypoxic respiratory failure. DM II with CKD. HTN with CKD/ CHF. Anemia in chronic illness. Hypoalbuminemia. Anasarca. Lobar PNA. Morbid Obesity. P/ Continue current POC and Medications. Furosemide and spironolactone as ordered. Give Amiloride and Metolazone prn. Potassium prn. Transfuse PRBC as needed. Agree with abx. Low sodium/ ADA diet. No NSAIDs. AM labs. Daily weight.
--- NOTE | 2018-06-12 16:50 | DS ---
Date of Discharge: 06/11/2018 Consultants: Dr. Wallace with Pulmonology, Dr. Yanes with Nephrology, Dr. Jaramillo with Cardiology , Dr. Frankel also with Cardiology, Dr. Aragon with Nephrology, Dr. Jones with Gastroenterology. Procedures: None. Admitting Diagnoses: 1.Acute kidney injury. 2.Diastolic heart failure, dtnva-[id number]. 3.Pneumonia aspiration, left lower lobe. 4.Iron-deficiency anemia. 5.Diabetes mellitus type 2 with long-term use of insulin with hyperglycemia. 6.Gastroesophageal reflux disease. 7.Hypertension, essential. 8.Morbid obesity. Discharge Diagnoses: 1.Acute respiratory failure secondary to volume overload, pneumonia hypoventilation syndrome. 2.Tsnqe-sp-iizfgxm diastolic heart failure with volume overload. 3.Pneumonia, left lower lobe. 4.Acute kidney injury. 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 6.Gastroesophageal reflux disease. 7.Dysphagia. 8.Diarrhea. 9.History of pulmonary embolism. 10.Normocytic-normochromic anemia. 11.Obesity hypoventilation syndrome. 12.Morbid obesity, BMI 48. 13.Essential hypertension. Hospital Course: The patient is a 43-year-old female, who was admitted for shortness of breath. She was found to have left lower lobe pneumonia likely due to aspiration. She was started on IV antibio tics. The patient recently had a pill endoscopy, upper and lower GI scope, but it was found to be an emic. The patient overall had a prolonged hospital course due to her respiratory status. She had to be intubated. This was thought to be due to volume overload and her pneumonia as well as her obesit y hypoventilation syndrome. She was difficult to wean off the ventilator and eventually was extubate d. Dr. Wallace with Pulmonology managed the ventilator. The patient did have some elevation in her creatinine, however, did start to come back down, seemed to be her new baseline. She did require so me blood transfusions as well. Her Hemoccult blood was negative. She will be place on Lasix drip an d as well as metolazone to get her fluid off. Her cultures remained negative. C. diff was checked w hich was also negative. Stool cultures were also obtained. Doppler study was done to rule out DVT. CT of the abdomen and pelvis showed pneumonia in the lingula of the left upper lobe, pleural effusio ns, pericardial effusion, and moderate severity fluid retention pattern is subcutaneous fatty tissues . She was also seen by Cardiology for the effusion. Echocardiogram was done for the pericardial eff usion. EF was 53%. There was a small pericardial effusion with no tamponade. This was thought to b e due to her volume overload. The patient was doing well. She was placed on NG tube feeds during he r intubation. The patient is having some difficulty swallowing post extubation, likely due to her pr olonged intubation and the fact that she was sedated. The patient was seen by speech therapy. The p marc was then referred to LT[facility] for further treatment nursing home. She was then excepted by LTAC and was discharged. Pulmonology not recommend any further antibiotics. Condition: Fair. Activity: Fall precautions. Ambulate with assist. The patient will likely need physical therapy an d occupational therapy. Diet: Low-sodium diet and fluid-restricted diet. Medications: As per medication reconciliation list. Followup: Follow up with primary care physician once transferred out of LTAC. Follow up with nephro logist, Dr. Yanes in 2 weeks. Return to ER for worsening condition. Follow up with hatchery worker, Dr. Jaramillo in 2 weeks. For physical exam findings, please see progress note dictated on day of discharge. Total time spent discharging the patient was 41 minutes. /HAIDER Voice ID: [id number] Report ID: [id number]
== END 2018-06-11 21:35 | DRG 207 ==
LOC: ER 16:40 → ERHOLD 20:41 → 2ND 21:19 → 3RD-ICU 06-02 09:35 → 2ND 06-11 13:41
PROVIDERS: ADMIT Hospitalist; ATTEND Family Medicine
PROC: 5A09457 Assistance with Respiratory Ventilation, 24-96 Consecutive Hours, Continuous Positive Airway Pressure (ICD-10-PCS; 2018-05-31)
PROC: 30233N1 Transfusion of Nonautologous Red Blood Cells into Peripheral Vein, Percutaneous Approach (ICD-10-PCS; 2018-06-01)
PROC: 0BH17EZ Insertion of Endotracheal Airway into Trachea, Via Natural or Artificial Opening (ICD-10-PCS; 2018-06-03)
PROC: 0DH67UZ Insertion of Feeding Device into Stomach, Via Natural or Artificial Opening (ICD-10-PCS; 2018-06-03)
PROC: 02HV33Z Insertion of Infusion Device into Superior Vena Cava, Percutaneous Approach (ICD-10-PCS; 2018-06-03)
PROC: B548ZZA Ultrasonography of Superior Vena Cava, Guidance (ICD-10-PCS; 2018-06-03)
PROC: 5A1955Z Respiratory Ventilation, Greater than 96 Consecutive Hours (ICD-10-PCS; principal; 2018-06-04)
PROC: 3E0G76Z Introduction of Nutritional Substance into Upper GI, Via Natural or Artificial Opening (ICD-10-PCS; 2018-06-04)
DX: J18.1 Lobar pneumonia, unspecified organism (principal); I50.33 Acute on chronic diastolic (congestive) heart failure; J96.21 Acute and chronic respiratory failure with hypoxia; N17.0 Acute kidney failure with tubular necrosis; E43 Unspecified severe protein-calorie malnutrition; N17.9 Acute kidney failure, unspecified; E66.2 Morbid (severe) obesity with alveolar hypoventilation; Z68.42 Body mass index [BMI] 45.0-49.9, adult; J90 Pleural effusion, not elsewhere classified; I31.3 Pericardial effusion (noninflammatory); I13.0 Hypertensive heart and chronic kidney disease with heart failure and stage 1 through stage 4 chronic kidney disease, or unspecified chronic kidney disease; K21.9 Gastro-esophageal reflux disease without esophagitis; R19.7 Diarrhea, unspecified; Z86.711 Personal history of pulmonary embolism; D64.9 Anemia, unspecified; Z91.013 Allergy to seafood; E87.6 Hypokalemia; E88.09 Other disorders of plasma-protein metabolism, not elsewhere classified; Z87.891 Personal history of nicotine dependence; D50.9 Iron deficiency anemia, unspecified; E11.628 Type 2 diabetes mellitus with other skin complications; Z79.4 Long term (current) use of insulin; E11.22 Type 2 diabetes mellitus with diabetic chronic kidney disease; N18.3 Chronic kidney disease, stage 3 (moderate); R80.9 Proteinuria, unspecified; R60.1 Generalized edema; R13.19 Other dysphagia
CPT/HCPCS: 36415; 36430; 71045; 71250; 74018; 74176; 76604; 80048; 80053; 80076; 80202; 81001; 81003; 81015; 82274; 82570; 82805; 82962; 83690; 83735; 83880; 84100; 84300; 84443; 84484; 84550; 85014; 85018; 85025; 85610; 86704; 86706; 86803; 86850; 86900; 86901; 87040; 87045; 87046; 87070; 87086; 87088; 87177; 87205; 87209; 87340; 87493; 92610; 93005; 93306; 93970; 94002; 94003; 94660; 94760; 96374; 99285; C9113; J0330; J0360; J0696; J0885; J1170; J1630; J1940; J2250; J2270; J2405; J2704; J2997; J3010; J3475; J7512; P9016; P9047; Q4081

== ENCOUNTER 2021-09-25 19:45 | Inpatient (IN) | payer OTHER ==
[2021-09-25] MEDS ORDERED: ONDANSETRON 4 MG/2 ML VIAL IV PRN (19:46)
[2021-09-25] MEDS ORDERED: HYDROCODONE/APAP 5/325 MG TAB PO PRN (19:46)
--- OUTSIDE RECORDS SUMMARY | 2021-09-25 19:50 | XMS REPORT | Continuity of Care Document ---
:1975 Author Organization [facility] t Address [address] [place] [address] Care Team Providers Name Role Phone Mariza BARRETT Primary Care Physician Unavailable NERIS Attending Clinician Unavailable Doctor Unassigned, Name Attending Clinician Unavailable Flower HANSON, L Attending Clinician Maryana Attending Clinician Unavailable MD Katelyn PRINGLE. Attending Clinician Unavailable PINO Attending Clinician Unavailable Mariza Barrett MD Attending Clinician WALLY Attending Clinician Unavailable MD MARTA LO Attending Clinician Unavailable TRUNG Attending Clinician Unavailable Maryana Admitting Clinician Unavailable MD PINO EBravo Admitting Clinician Unavailable WALLY Admitting Clinician Unavailable MD MARTA LO Admitting Clinician Unavailable TRUNG Admitting Clinician Unavailable Payers Payer Name Policy Type Policy Number Effective Date Expiration Date S [facility] [id number] 2020 00:00:00 [employer] DUAL [id number] 2020 COMP HMO D SNP 00:00:00 [facility] [id number] 2014 00:00:00 [employer] - [id number] 2020 [facility] 00:00:00 (MEDICARE REPLACEMENT/ADVANTA GE - HMO) [facility] - [id number] DUAL COMPLETE - DUAL ELIGIBLE - SNP (MEDICARE-MEDICAID REPLACEMENT HMO) Problems Condition Condition Condition Status Onset Resolution Last Treating Co mments Source Name Details Category Date Date Treatment Clinician Date Obesity Obesity Problem Active 2020-04 [place] 0-27 da 00:00: Medical Group Essential Essential Problem Active 2020-04 [place] hypertensi Hypertensi 0-27 da on on 00:00: Medical Group Primary Primary Problem Active 2020-04 [place] dysmenorrh Dysmenorrh 0-27 da ea ea 00:00: Medical Group Menorrhagi Menorrhagi Problem Active 2020-04 M [place] a a 0-27 da 00:00: Medical Group End stage End Stage Problem Active 2020-04 [place] renal Renal 0-27 da disease on Disease on 00:00: Me dical dialysis Dialysis 00 Group due to Due to type 2 Type 2 diabetes Diabetes mellitus Mellitus Bronchitis Bronchitis Disease Active U nivers 8-02 ity of 00:00: [place] 00 Medical Branch ESRD ESRD Disease Active Overview: Univer s needing needing 29 Formattin ity o f dialysis dialysis 00:00: g of this Jez as 00 note Medical might be Branch different from the original. Added automatic ally from request for surgery [id number] Troponin I Troponin I Disease Active U nivers above above 8-11 [place] of reference [place] 00:[place] range 00 [place] COVID-19 COVID-19 Disease Active Unive rs virus virus 8-11 ity of infection infection 00:[place] Acute on Acute on Disease Active Unive rs chronic chronic 8-11 ity of respirator respirator [place] failure y failure 00 Medi abner with with Branch hypoxia hypoxia Pleural Pleural Disease Active Univers effusion effusion 8-10 ity of on right on right 00:00: [place] 00 Medical Branch NSVT NSVT Disease Active Univers (nonsustai (nonsustai 7-21 it y of kayla kayla 00:00: [place] ventricula ventricula 00 Me dical r r Branch tachycardi tachycardi a) a) End-stage End-stage Disease Active Overview: Univers renal renal 5-20 Formattin ity of disease on disease on 00:00: g of this [place] hemodialys hemodialys 00 note Me dical is is might be Branch different from the original. Formattin g of this note might be different from the original. Added automatic ally from request for surgery [id number] Benign Benign Disease Active Univers hypertensi hypertensi 4-29 it y of ve heart ve heart 00:00: [place] and kidney and kidney 00 Me dical disease disease Branch with heart with heart failure failure and with and with chronic chronic kidney kidney disease disease stage I stage I through through stage IV, stage IV, or or unspecifie unspecifie d(404.11) d(404.11) Hypoalbumi Hypoalbumi Disease Active U nivers nemia nemia - ity of 00:00: [place] 00 Medical Branch Hypokalemi Hypokalemi Disease Active U nivers a a 4- ity of 00:00: [place] 00 Medical Branch Localized Localized Disease Active Uni vers edema due edema due 08-02 ity of to fluid to fluid 00:00: [place] overload overload 00 Medica l Branch Nephrogeno Nephrogeno Disease Active U nivers [facility] 429 ity of proteinuri proteinuri 00:[place] a 00 Medical [place] PD PD Disease Active Overview: Univer s catheter catheter - Formattin ity of dysfunctio dysfunctio 00:00: g of this [place] n, initial n, initial 00 note Me dical encounter encounter might be Br anch different from the original. Added automatic ally from request for surgery [id number] ESRD (end ESRD (end Disease Active Uni vers stage stage 3-18 ity of renal renal 00:00: [place] disease) disease) 00 Medica l on on Branch dialysis dialysis ANASARCA, Diagnosis Active 2018-042019-02-21 Memoria CKD 1-01 21:43:00 l 04:06: [place] ANASARCA, 00 CKD Active 02/04/2019 [facility] CHF Diagnosis Active 2018-042019-02-04 Mem oria 04-06 08:53:00 l CHF 04:06: [place] 00 [facility] Men[facility] Menorrhagi Disease Active U nivers a with a with - ity of irregular irregular 00:00[place] cycle cycle 00 Medical Branch JOSEFA on JOSEFA on Disease Active [facility] CPAP CPAP 08-07 ity of 00:00: [place] [facility] Anemia Anemia Disease Active Univers - ity of 00:00: Medical Branch Acute on Acute on Disease Active Unive rs chronic chronic 08-05 ity of diastolic diastolic 00:00[place] CHF CHF 00 Medical (congestiv (congestiv Br anch e heart e heart failure), failure), NYHA class NYHA class 3 3 History of History of Disease Active U nivers pulmonary pulmonary 08-04 ity of embolism embolism 00:00: [place] [facility] Essential Essential Disease Active Uni vers hypertensi hypertensi 2-21 it y of on, benign on, benign 00:00[place] Type 2 Type 2 Disease Active 2014-04 Univers diabetes diabetes 1-17 ity of mellitus mellitus 00:00: [place] with with 00 Medical microalbum microalbum Br anch inuria, inuria, with with long-term long-term current current use of use of insulin insulin PVD PVD Disease Active 2014-04 Univers (periphera (periphera -17 it y of l vascular l vascular 00:00[place] disease) disease) 00 Medica l with with Branch claudicati claudicati on on Vitamin D Vitamin D Disease Active 2014-04 Uni vers deficiency deficiency -17 it y of 00:00: [place] [facility] Albuminuri Albuminuri Disease Active 2014-04 U nivers a a -17 ity of 00:00: [place] [facility] Abnormal Abnormal Disease Active 2014-04 Overview: Un juan antonio uterine uterine - Formattin ity o f bleeding bleeding 00:00: g of this Jez as 00 note Medical might be Branch different from the original. 09/22/18 - EMB benign HLD HLD Disease Active Univers (hyperlipi (hyperlipi 12-19 it y of demia) demia) 00:00: [place] 00 Medical Branch Metabolic Metabolic Disease Active Uni vers syndrome X syndrome X - it y of 00:00: [place] 00 Medical Branch GENERALIZE Diagnosis Active 2019-02-21 Memoria D EDEMA 21:43:00 l [place] GENERALIZE D EDEMA Active [facility] CHRONIC Diagnosis Active 2019-02-21 Me moria KIDNEY 21:43:00 l DISEASE, CHRONIC Aparna nn UNSPECIFIE KIDNEY D DISEASE, UNSPECIFIE D Active [facility] ACUTE ON Diagnosis Active 2019-02-04 M emoria CHRONIC 08:53:00 l DIASTOLIC ACUTE ON [place] (CONGESTIV CHRONIC E) DIASTOLIC (CONGESTIV E) Active [facility] Allergies, Adverse Reactions, Alerts Allergy Allergy Status Severity Reaction(s) Onset Inactive Treating Comm ents Source Name Type Date Date Clinician Sulfa Propensi Active Itching Univers (Sulfona ty to 6-04 ity of mide adverse 00:00: [place] Antibiot reaction 00 Medica l ics) s Branch SULFA Drug Active Low ITCHING Univers (SULFONA Class 6-04 ity of MIDE 00:00: [place] ANTIBIOT 00 Medical ICS) Branch shells FA [facility] derived 00:[facility]: [address] [facility] derived 00:00: [address] Iodine Propensi Active Itching Univers And ty to 11-01 ity of Iodide adverse 00:00: [place] Containi reaction 00 Medica l ng s Branch Products IODINE DRUG Active ITCHING Univers INGREDI 11-01 ity of 00:00: [place] 00 Medical Branch IODINE Drug Active ITCHING Univers AND Class 7- ity of IODIDE 00:00: [place] CONTAINI 00 Medical NG Branch PRODUCTS Iodine Propensi Active Itching Univers ty to 11-01 ity of adverse 00:00: [place] reaction 00 Medical s Branch SHELLFIS Allergy Active Itching [place] [facility] H to da DERIVED substan Medical e Group Social History Social Habit Start Date Stop Date Quantity Comments Source History of Cigarette Smoker Universi ty of tobacco use [place] [facility] History [facility] o f Alcohol Frequency [place] M edical Branch History [facility] o f Alcohol Std [place] Medical Drinks Branch History [facility] o f Alcohol Binge [place] Medic al Branch Exposure to 2021-08-05 2021-08-15 Not sure University of SARS-CoV-2 00:00:00 09:46:00 [place] Medical (event) Branch Alcohol intake 2021-08-15 2021-08-15 0 /d University 00:00:00 00:00:00 [facility] Branch Tobacco Comment 2020-02-06 2020-02-06 quit in 1995, Univer sity of 00:00:00 00:00:00 restarted 2014, [place] Med ical then quit again. Branch smoked on and off since 14 years old Education 2018-12-17 2018-12-17 21 [facility] 00:00:00 00:00:00 [place] [facility] History [facility] 2018-12-17 2018-12-17 5 University o f Financial 00:00:00 00:00:00 [place] [facility] History [facility] Food 2018-12-17 2018-12-17 1 Univers ity of Worry 00:00:00 00:00:00 [place] [facility] History [facility] Food 2018-12-17 2018-12-17 1 Univers ity of Scarcity 00:00:00 00:00:00 [place] [facility] History [facility] 2018-12-17 2018-12-17 2 University o f Transport Med 00:00:00 00:00:00 [place] Medic al Branch History [facility] 2018-12-17 2018-12-17 2 University o f Transport Non-Med 00:00:00 00:00:00 [facility] [place] edical Branch Alcohol Comment 2015-02-20 2015-02-20 Rarely Universit y of 00:00:00 00:00:00 [facility] Sex Ass[birth year] At [birth year] Universit y of 00:00:00 00:00:00 [facility] Smoking Status Start Date Stop Date Source Former Smoker [facility] Medications Ordered Filled Start Stop Current Ordering Indication Dosage Frequency Signature Comments Components Source Medication Medication Date Date Medication? Clinician (SIG) Name Name medroxyPROG Yes [id number] 150mg Univers ESTERone 8-12 ity of (DEPO-PROVE 15:15: [place] RA) syringe 00 Medical 150 mg Branch medroxyPROG Yes [id number] 150mg Univers ESTERone 8-12 ity of (DEPO-PROVE 15:15: [place] RA) syringe 00 Medical 150 mg Branch montelukast Yes 10mg Take 10 mg Univers 10 mg 5-28 by mouth ity of tablet 00:00: daily. Medical Branch montelukast Yes 10mg Take 10 mg Univers 10 mg 5-28 by mouth ity of tablet 00:00: daily. Medical Branch insulin Yes [id number] INJECT 10 U nivers lispro 2-25 TO 15 ity of (HUMALOG 00:00: UNITS [place] KWIKPEN 00 SUBCUTANEO Medica l INSULIN) USLY THREE Branc h 100 unit/mL TIMES pen DAILY injector NEEDED IF SUGARS ARE OVER 200 Insulin Yes [id number] Take 10 Uni vers Glargine 2-25 units once ity o f (LANTUS 00:00: daily if [place] [address] blood Medical U-100 sugars are Branch INSULIN) over 180 100 unit/mL in (3 mL) morning. injection insulin Yes [id number] INJECT 10 U nivers lispro 2-25 TO 15 ity of (HUMALOG 00:00: UNITS [place] KWIKPEN 00 SUBCUTANEO Medica l INSULIN) USLY THREE Branc h 100 unit/mL TIMES pen DAILY injector NEEDED IF SUGARS ARE OVER 200 Insulin Yes [id number] Take 10 Uni vers Glargine 2-25 units once ity o f (LANTUS 00:00: daily if [facility] blood Medical U-100 sugars are Branch INSULIN) over 180 100 unit/mL in (3 mL) morning. injection traMADoL 50 Yes [id number] 50mg Take 1 Univ ers mg tablet 2-12 tablet by ity o f 00:00: mouth [place] every 6 Medical (six) Branch hours as needed for Pain (scale 7-10) for up to 5 doses. Indication s: acute pain traMADoL 50 Yes [id number] 50mg Take 1 Univ ers mg tablet 2-12 tablet by ity o f 00:00: mouth [place] every 6 Medical (six) Branch hours as needed for Pain (scale 7-10) for up to 5 doses. Indication s: acute pain flash 2020- Yes [id number] 1{each} 1 Each 2 U nivers glucose 1-02 (two) ity of scanning 00:00: times [place] reader 00 daily Medical (FREESTYLE before Branch NAEEM 2 breakfast READER) and Misc dinner. flash 2020-1 Yes [id number] 1{each} 1 Each 2 U nivers glucose 1-02 (two) ity of scanning 00:00: times [place] reader 00 daily Medical (FREESTYLE before Branch NAEEM 2 breakfast READER) and Misc dinner. ipratropium 2020-0 Yes [id number] .5mg Inhale 2.5 Univers 0.02 % 8-03 mL every 6 ity of nebulizer 00:00: (six) [place] solution 00 hours as Medical needed for Branch Wheezing or Shortness of Breath. ipratropium 2020-0 Yes [id number] .5mg Inhale 2.5 Univers 0.02 % 8-03 mL every 6 ity of nebulizer 00:00: (six) [place] solution 00 hours as Medical needed for Branch Wheezing or Shortness of Breath. HYDROcodone 2020-0 Yes 1{tbl} Take 1 Un juan antonio -acetaminop 6-09 tablet by ity of hen 5-325 00:00: mouth. [place] mg tablet 00 Medical Branch HYDROcodone 2020-0 Yes 1{tbl} Take 1 Un juan an[place] -acetaminop 6-09 tablet by ity of hen 5-325 00:00: mouth. [place] mg tablet 00 Medical Branch atorvastati 2020-0 Yes [id number] 40mg Take 1 Univers n 40 mg 4-01 tablet by ity of tablet 00:00: mouth [place] 00 daily. Medical Branch atorvastati 2020-0 Yes [id number] 40mg Take 1 Univers n 40 mg 4-01 tablet by ity of tablet 00:00: mouth [place] 00 daily. Medical Branch Insulin 2020-0 Yes [id number] Use 4 Unive rs [place], 1-16 times ity of Disposable, 00:00: daily with [place] (BD INSULIN 00 Levemir Medic al PEN NEEDLE and Branch UF) 31 Humalog gauge x 5/16" Ndle Insulin 2020-0 Yes [id number] Use 4 Unive rs [place], 1-16 times ity of Disposable, 00:00: daily with [place] (BD INSULIN 00 Levemir Medic al PEN NEEDLE and Branch UF) 31 Humalog gauge x 5/16" Ndle LORazepam Yes TAKE 1 Univer s 0.5 mg 1-08 TABLET BY ity of tablet 00:00: MOUTH [place] 00 EVERY 24 Medical HOURS Branch NEEDED FOR ANXIETY LORazepam Yes TAKE 1 Univer s 0.5 mg 1-08 TABLET BY ity of tablet 00:00: MOUTH [place] 00 EVERY 24 Medical HOURS Branch NEEDED FOR ANXIETY albuterol Yes [id number] 2.5mg Inhale 0.5 Univers 2.5 mg/0.5 9-23 mL every 6 ity of mL 00:00: (six) [place] nebulizer 00 hours as Medica l solution needed for Branc h Wheezing. albuterol Yes [id number] 2.5mg Inhale 0.5 Univers 2.5 mg/0.5 9-23 mL every 6 ity of mL 00:00: (six) [place] nebulizer 00 hours as Medica l solution needed for Branc h Wheezing. albuterol albuterol No albuterol [place] sulfate HFA sulfate HFA sulfate da 90 90 HFA 90 Medical mcg/actuati mcg/actuati mcg/actuat Group on aerosol on aerosol ion inhaler inhaler aerosol inhaler amlodipine amlodipine No amlodipine [place] 2.5 mg 2.5 mg 2.5 mg da tablet tablet tablet Medical Group atorvastati atorvastati No atorvastat [place] n 40 mg n 40 mg in 40 mg da tablet tablet tablet Medical Group Auryxia 210 Auryxia 210 No Auryxia [place] mg iron mg iron 210 mg da tablet tablet iron Medical tablet Group ceftriaxone ceftriaxone No 1g ceftriaxon [place] 1 gram 1 gram e 1 gram da solution solution solution Med ical for for for Group injection injection injection Take 1 g by Take 1 g by Take 1 g injection injection by route. route. injection route. clindamycin clindamycin No clindamyci [place] HCl 300 mg HCl 300 mg n HCl 300 da capsule capsule mg capsule Med ical TAKE 1 TAKE 1 TAKE 1 Group CAPSULE BY CAPSULE BY CAPSULE BY MOUTH THREE MOUTH THREE MOUTH TIMES DAILY TIMES DAILY THREE FOR 14 DAYS FOR 14 DAYS TIMES DAILY FOR 14 DAYS fluconazole fluconazole No fluconazol [place] 100 mg 100 mg e 100 mg da tablet TAKE tablet TAKE tablet Medical 1 TABLET BY 1 TABLET BY TAKE 1 Group MOUTH EVERY MOUTH EVERY TABLET BY 72 HOURS 72 HOURS MOUTH EVERY 72 HOURS furosemide furosemide No furosemide [place] 40 mg 40 mg 40 mg da tablet tablet tablet Medical Group Humalog Humalog No Humalog [place] Emmanuel Emmanuel Emmanuel da ShukriikPen JonahPen KwikPen Medica l (U-100) 100 (U-100) 100 (U-100) Group unit/mL unit/mL 100 subcutaneou subcutaneou unit/mL s half-unit s half-unit subcutaneo pen pen us half-unit pen hydrocodone hydrocodone No hydrocodon [place] 5 5 e 5 da mg-acetamin mg-acetamin mg-acetami Medical ophen 325 ophen 325 nophen 325 Group mg tablet mg tablet mg tablet TAKE 1 TAKE 1 TAKE 1 TABLET BY TABLET BY TABLET BY MOUTH EVERY MOUTH EVERY MOUTH 6 HOURS FOR 6 HOURS FOR EVERY 6 UP TO 7 UP TO 7 HOURS FOR DAYS DAYS UP TO 7 NEEDED FOR NEEDED FOR DAYS MODERATE MODERATE NEEDED FOR PAIN PAIN MODERATE PAIN Lantus Lantus No Lantus [place] Solostar Solostar Solostar da U-100 U-100 U-100 Medical Insulin 100 Insulin 100 Insulin Group unit/mL (3 unit/mL (3 100 mL) mL) unit/mL (3 subcutaneou subcutaneou mL) s pen s pen subcutaneo INJECT 20 INJECT 20 us pen UNITS UNITS INJECT 20 SUBCUTANEOU SUBCUTANEOU UNITS SLY ONCE SLY ONCE SUBCUTANEO DAILY DAILY USLY ONCE DAILY lidocaine-p lidocaine-p No lidocaine- [place] rilocaine rilocaine prilocaine da 2.5 %-2.5 % 2.5 %-2.5 % 2.5 %-2.5 Medical topical topical % topical Grou p cream cream cream lorazepam lorazepam No lorazepam [place] 0.5 mg 0.5 mg 0.5 mg da tablet tablet tablet Medical Group losartan 50 losartan 50 No losartan [place] mg tablet mg tablet 50 mg da TAKE 1 TAKE 1 tablet Medical TABLET BY TABLET BY TAKE 1 Alek up MOUTH TWICE MOUTH TWICE TABLET BY DAILY DAILY MOUTH TWICE DAILY montelukast montelukast No montelukas [place] 10 mg 10 mg t 10 mg da tablet tablet tablet Medical Group Novolog Novolog No Novolog [place] Flexpen Flexpen Flexpen da U-100 U-100 U-100 Medical Insulin Insulin Insulin Group aspart 100 aspart 100 aspart 100 unit/mL (3 unit/mL (3 unit/mL (3 mL) mL) mL) subcutaneou subcutaneou subcutaneo s s us OneTouch OneTouch No OneTouch [place] Verio Flex Verio Flex Verio Flex da Meter Meter Meter Medical Group OneTouch OneTouch No OneTouch [place] Verio test Verio test Verio test da strips strips strips Medical Group tramadol 50 tramadol 50 No tramadol [place] mg tablet mg tablet 50 mg da tablet Medical Group Immunizations Ordered Filled Immunization Date Status Comments Sourc e Immunization Name Name HEP B, Adult Dosage 2019-02-16 Completed Unive rsity of 00:00:00 [facility] HEP B, Adult Dosage 2019-02-16 Completed Unive rsity of 00:00:00 [facility] TDAP 2015-02-20 Completed University of 00:00:00 [facility] TDAP 2015-02-20 Completed [place] of 00:00:00 [facility] Vital Signs Vital Name Observation Time Observation Value Comments Source Body height 2021-08-15 14:56:[address] [facility] Body weight 2021-08-15 14:56:[address] [facility] BMI 2021-08-15 14:56:00 39.69 kg/m2 [facility] BP Diastolic 2021-06-04 00:00:00 99 mm[Hg] [facility] Height 2021-06-04 00:00:00 66 [in_i] [facility] BMI (Body Mass 2021-06-04 00:00:00 39.2 [facility] BP Systolic 2021-06-04 00:00:00 198 mm[Hg] [facility] Body Weight 2021-06-04 00:00:00 242.9 [lb_av] [facility] BP Diastolic 2021-04-23 00:00:00 108 mm[Hg] [facility] Height 2021-04-23 00:00:00 66 [in_i] [facility] BMI (Body Mass 2021-04-23 00:00:00 39.7 kg/m2 [facility] Group BP Systolic 2021-04-23 00:00:00 201 mm[Hg] [facility] Body Weight 2021-04-23 00:00:00 246 [lb_av] [facility] BP Diastolic 2021-02-26 00:00:00 92 mm[Hg] [facility] Height 2021-02-26 00:00:00 66 [in_i] [facility] BMI (Body Mass 2021-02-26 00:00:00 42.1 kg/m2 [facility] Group BP Systolic 2021-02-26 00:00:00 187 mm[Hg] [facility] Body Weight 2021-02-26 00:00:00 260.8 [lb_av] [facility] BP Diastolic 2021-02-12 00:00:00 81 mm[Hg] [facility] Height 2021-02-12 00:00:00 66 [in_i] [facility] BMI (Body Mass 2021-02-12 00:00:00 42 kg/m2 [facility]) Group BP Systolic 2021-02-12 00:00:00 149 mm[Hg] [facility] Body Weight 2021-02-12 00:00:00 260.1 [lb_av] [facility] BP Diastolic 2021-01-29 00:00:00 95 mm[Hg] [facility] Height 2021-01-29 00:00:00 66 [in_i] [facility] BMI (Body Mass 2021-01-29 00:00:00 41.8 kg/m2 [facility] Group BP Systolic 2021-01-29 00:00:00 209 mm[Hg] [facility] Body Weight 2021-01-29 00:00:00 259 [lb_av] [facility] Procedures Procedure Date / Time Performing Clinician Source Performed EXTERNAL PROVIDER 2021-08-24 05:01:00 Doctor Unassigned, No Univ [facility] RECORDS Name Medical Branch US, transvaginal 2021-02-12 00:00:00 [facility] Operation on Lung 2019-04-06 00:00:00 [facility] Arteriovenous 2019-04-06 00:00:00 [facility] Anastomosis for Renal Group Dialysis Cataract Surgery Complex 2019-04-06 00:00:00 [facility] Endometrial Ablation 2014-04-06 00:00:00 [facility] Bilateral Tubal Ligation 2001-04-06 00:00:00 [facility] Delivery 2001-04-06 00:00:00 [facility] Plan of Care Planned Activity Planned Date Details Comments Source Diagnostic Test 2021-06-04 [place], vaginal [facility] Pending 00:00:00 [code = [place], Group vaginal] Encounters Start End Encounter Admission Attending Care Care Encounter Source Date/Time Date/Time Type Type Clinicians Facility Department ID 2021-07-02 Outpatient [facility] [id number] [place] 15:28:35 [id number] [facility] 2021-01-17 Outpatient [id number] Memoria 10:14:31 [id number] [place] [id number] 2020-11-15 Outpatient [id number] Memoria 09:31:58 [id number] [place] [id number] 2019-02-04 Inpatient U [facility] [id number] MHB L 07:22:00 2021-09-10 2021-09-10 Outpatient Bettye [facility] [id number] Univers 13:40:00 13:40:00 GALILEA ity o f [facility] 2021-08-24 2021-08-24 Orders Doctor JONES [id number] Univers 00:00:00 00:00:00 Only Unassigned, CARYN [id number] ity of [facility] [id number] Jez as [id number] [address] 2021-08-15 2021-08-15 Office F[place] [facility] [id number] Univers 10:00:00 10:05:11 Visit [facility] [id number] it y of [place] [id number] Jez as CAROL?BLEA [phone] Ga dical [address] MEDICAL OFFICE [facility] 2021-06-27 2021-06-27 Outpatient [place]_L MMG MMG [id number] [place] 12:41:00 12:41:00 0609 Medical Group 2021-06-21 2021-06-21 Outpatient [place]_L MMG MMG [id number] [place] 04:20:00 04:20:00 0318 da Medical Group 2021-06-04 2021-06-04 Outpatient Rut[place]_L MMG MMG [id number] [place] 09:27:00 09:27:00 0301 Medical Group 2021-06-04 2021-06-04 Moisés [place] - [id number] M atagor 00:00:00 00:00:00 Discovery guadalupe Swain MD: [address] [place] [id number] , Ph. [phone] 2021-05-10 2021-05-10 Outpatient [facility]_L MMG MMG [id number] [place] 04:32:00 04:32:00 0204 Medical Group 2021-05-07 2021-05-07 Outpatient Rutledge_L MMG MMG [id number] [place] 09:14:00 09:14:00 0201 Medical Group 2021-05-07 2021-05-07 Moisés WH[place]LOCK [place] - [id number] M atagobettye 00:00:00 00:00:00 Discovery guadalupe Swain MD: [address] [place] [address], [place] [address] , Ph. [phone] 2021-04-23 2021-04-23 Outpatient [facility] [address] [place] 11:04:00 11:04:00 0118 Medical Group 2021-04-23 2021-04-23 Moisés WH[place]LOCK [place] - [id number] M atagor 00:00:00 00:00:00 Discovery guadalupe Swain MD: [address] [place] [phone] , Ph. [phone] 2021-03-26 2021-03-26 Outpatient [facility] [id number] [place] 00:00:00 00:00:00 TAVO [address] 2021-02-26 2021-02-26 Outpatient [facility] [address] [place] 11:55:00 11:55:00 1123 [facility] 2021-02-26 2021-02-26 Moisés TAM [place] - [id number] M [place] 00:00:00 00:00:00 Discovery guadalupe Swain MD: [address] [place] [phone] , Ph. [phone] 2021-02-12 2021-02-12 Outpatient [facility] [address] [place] 11:20:00 11:20:00 1109 Medical Group 2021-02-12 2021-02-12 Outpatient [facility] [address] [place] 11:20:00 11:20:00 1111 [facility] 2021-02-12 2021-02-12 Moisés WH[place] - [id number] M [place] 00:00:00 00:00:00 Discovery guadalupe Swain MD: [address] [place] [phone] , Ph. [phone] 2021-01-29 2021-01-29 Outpatient [facility] [address] [place] 04:25:00 04:25:00 1026 Medical Group 2021-01-29 2021-01-29 Moisés [facility] [place] - [id number] M [place] 00:00:00 00:00:00 Discovery guadalupe Swain MD: 600 [facility] [place] - [address], [place] [address] , Ph. [phone] 2021-01-24 2021-01-24 Outpatient [facility]L [facility] [address] [place] 10:57:00 10:57:00 1021 Medical [facility] 2020 2020 [facility] 1.2.840.114 [id number] 00:00:00 00:00:00 Raegan Casey [id number] [place] 4.2.7.2.686 Professio [phone] [address] 2020-02-28 2020-02-28 Telephone [facility] 1.2.840.114 7 [id number] 00:00:00 00:00:00 Raegan Casey [id number] [place] 4.2.7.2.686 Professio [phone] [address] 2020-02-27 2020-02-27 Orders Doctor ROBERT 1.2.840.114 [id number] 00:00:00 00:00:00 Only Unassigned, CARYN 350.1.13.10 [place] [facility] 4.2.7.2.686 [phone] [id number] 2020-02-23 2020-02-23 [facility] 1.2.840.114 7 [id number] 00:00:00 00:00:00 Raegan Casey [id number] [place] 4.2.7.2.686 Professio [phone] [address] 2020-02-21 2020-02-21 Telephone [facility] 1.2.840.114 7 [id number] 00:00:00 00:00:00 Raegan Casey [id number] [place] 4.2.7.2.686 Professio [phone] [address] 2020-02-15 2020-02-15 Telephone [facility] 1.2.840.114 7 [id number] 00:00:00 00:00:00 Raegan Casey 350.1.13.10 [place] 4.2.7.2.686 Professio [phone] [address] 2020-02-13 2020-02-13 [facility] 1.2.840.114 [id number] 11:19:56 23:59:00 Encounter Raegan A Letart 350.1.13.10 [place] 4.2.7.2.686 [place] [phone] [facility] 2020-02-06 2020-02-06 [facility] 1.2.840.114 [id number] 10:51:42 12:25:44 Visit Raegan Mariza Jacinto 350.1.13.10 [place] 4.2.7.2.686 Professio [phone] [address] 2020-01-26 2020-01-26 Orders Doctor ROBERT 1.2.840.114 [id number] 00:00:00 00:00:00 Only Unassigned, CARYN 350.1.13.10 [place] [facility] 4.2.7.2.686 [phone] [id number] 2019-11-24 2019-11-24 Outpatient [facility] [id number] [place] 00:00:00 00:00:00 ANNA 115 Method i 2019-09-13 2019-09-13 Outpatient [facility] [id number] [place] 00:00:00 00:00:00 ANNA 527 Method i 2019-09-08 2019-09-08 Outpatient [facility] [id number] [place] 00:00:00 00:00:00 ANNA 793 Method i 2019-09-08 2019-09-08 Outpatient [facility] [id number] [place] 00:00:00 00:00:00 ANNA 526 Method i 2019-08-23 2019-08-23 Outpatient [facility] [id number] [place] 00:00:00 00:00:[address] Results Test Description Test Time Test Comments Results Result Comments Source Microscopic observation [Identifier] in Vaginal fluid by Wet 2021-06-04 08:48:29 preparation Test Item Value Reference Range Interpretation Comme nts Clue Cells (test code = Clue Cells) negative WBCs (test code = WBCs) positive Trichomonads (test code = Trichomonads) negative Epithelial cells (test code = Epithelial cells) normal RBCs (test code = RBCs) negative [facility] Vaginal [facility] by Wet [id number] 11:46:00 Test Item Value Reference Range Interpretation Comments Clue Cells (test code = Clue Cells) negative WBCs (test code = WBCs) positive Trichomonads (test code = negative Trichomonads) Epithelial cells (test code = normal Epithelial cells) RBCs (test code = RBCs) positive [facility] Differential panel - [id number] 01:57:00 Test Item Value Reference Range Interpretation Comments white blood count (test code = 8.1 K/uL 4.0-11.5 white blood count) red blood count (test code = red 4.08 M/uL 3.80-5.20 blood count) hemoglobin (test code = 11.7 g/dL 10.5-15.7 hemoglobin) hematocrit (test code = 38.3 % 34.0-50.0 hematocrit) MCV [Entitic volume] (test code = 93.9 fL 86-100 86168-6) mean corpuscular hemoglobin (test 28.7 pg 26.2-33.4 code = mean corpuscular hemoglobin) mean corpuscular HGB conc (test 30.5 g/dL 30-34 code = mean corpuscular HGB conc) red cell distribution width (test 15.4 % 12.0-15.5 code = red cell distribution width) platelet count (test code = 197 K/uL 165-450 platelet count) mean platelet volume (test code = 12.2 fL 9.4-12.6 mean platelet volume) Segmented neutrophils/100 68.2 % 44.4-80.1 leukocytes in Blood (test code = 44396-6) Immature granulocytes [#/volume] 0.0 K/uL 0.0-0.03 in Blood (test code = 85168-3) lymphocyte% (test code = 15.3 % 10.0-50.0 lymphocyte%) mono % (test code = mono %) 10.8 % 3.6-12.0 eos % (test code = eos %) 5.0 % 0.0-5.4 Basophils/100 leukocytes in 0.5 % 0.1-1.2 Unspecified specimen (test code = 58223-7) Band form neutrophils [#/volume] 5.54 K/uL 1.56-6.13 in Blood (test code = 72849-2) Lymphocytes [#/volume] in 1.2 K/uL 1.18-3.74 Unspecified specimen by Automated count (test code = 57240-6) mono # (test code = mono #) 0.88 K/uL 0.24-0.86 H eos # (test code = eos #) 0.41 K/uL 0.04-0.36 H basophil # (test code = basophil 0.04 K/uL 0.01-0.08 #) NRBC% (test code = NRBC%) 0 /100 WBC 0-0.2 NRBC# (test code = NRBC#) 0 K/uL [facility] metabolic 2000 panel - Serum or [id number] 01:57:00 Test Item Value Reference Range Interpretation Comments Glucose [Mass/volume] in Serum or 244 mg/dL 74-106 H Plasma (test code = 2345-7) Urea nitrogen [Mass/volume] in 28 mg/dL 6-20 H Serum or Plasma (test code = 3094-0) osmolality calculated,serum (test 286 mOsm/kg 280-300 code = osmolality calculated,serum) creatinine (test code = 6.0 mg/dL 0.50-0.90 H creatinine) glomerular filtration rate (test 7.48 L code = glomerular filtration rate) Urea nitrogen/Creatinine [Mass 4.7 12-20 L Ratio] in Serum or Plasma (test code = 3097-3) sodium level (test code = sodium 136 mmol/L 135-145 level) potassium level (test code = 3.6 mmol/L 3.5-5.2 potassium level) chloride level (test code = 94 mmol/L 98-108 L chloride level) CO2 (test code = CO2) 26 mmol/L 21-32 anion gap (test code = anion gap) 19.6 mEq/L 12-20 calcium level (test code = 9.1 mg/dL 8.6-10.0 calcium level) [facility] RNA [Presence] in Respiratory specimen by VANITA with probe [id number] 07:55:4609296-2[facility] type and Indirect antibody screen panel - [id number] 07:30:00 Test Item Value Reference Range Interpretation Comments Rh [Type] in Blood (test code = 4+ 21185-4) ABO and Rh group panel - Blood A positive (test code = 13908-8) [facility] RNA [Presence] in Respiratory specimen by VANITA with probe [id number] 16:49:18 Test Item Value Reference Range Interpretation Comments SARS-CoV-2 (COVID-19) RNA Not detected Not-Detected [Presence] in Respiratory specimen by VANITA with probe detection (test code = 54079-1) 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 (test code = 97290-4) Whether the patient has symptoms related to condition of interest (test code = 64586-3) Patient was hospitalized because of this condition (test code = 64873-2) Whether the patient was admitted to intensive care unit (ICU) for condition of interest (test code = 68852-3) Whether patient resides in a congregate care setting (test code = 80377-6) SARS coronavirus 2 RNA [Presence] in Respiratory specimen by VANITA with probe [id number] 21:20:29 Test Item Value Reference Range Interpretation Comments SARS coronavirus 2 RNA Not detected Not-Detected [Presence] in Respiratory specimen by VANITA with probe detection (test code = 74350-7) [id number] 08:36:00 Test Item Value Reference Range Interpretation Comments POTASSIUM (test code 4.1 MMOL/L 3.5-4.9 N Previou sly reported = K) result: 4.0 MMOL/LEdited by : DEEJAY on 03/21/19:[id number] 0825: K previo usly reported as: 4. 0 MMOL/L [id number] 08:24:00 Test Item Value Reference Range Interpretation Comments POTASSIUM (test code = K) 4.0 MMOL/L 3.5-4.9 N POCT-GLUCOSE [id number] 14:54:00 Test Item Value Reference Range Interpretation Comments POC-GLUCOSE METER 117 mg/dL 70-110 H TESTED AT [facility] 6720 (BEAKER) (test code = [place] 1538) [address] [id number] 12:36:00 Test Item Value Reference Range Interpretation Comments FERRITIN (BEAKER) (test code = 361) 568 ng/mL 5-275 H BASIC METABOLIC [id number] 12:26:00 Test Item Value Reference Range Interpretation Comments SODIUM (BEAKER) 143 meq/L 136-145 (test code = 381) POTASSIUM (BEAKER) 3.9 meq/L 3.5-5.1 (test code = 379) CHLORIDE (BEAKER) 112 meq/L 98-107 H (test code = 382) CO2 (BEAKER) (test 24 meq/L 22-29 code = 355) BLOOD UREA NITROGEN 47 mg/dL 7-21 H (BEAKER) (test code = 354) CREATININE (BEAKER) 3.97 mg/dL 0.57-1.25 H (test code = 358) GLUCOSE RANDOM 108 mg/dL 70-105 H (BEAKER) (test code = 652) CALCIUM (BEAKER) 8.1 mg/dL 8.4-10.2 L (test code = 697) EGFR (BEAKER) (test 12 mL/min/1.73 ESTIMA ANDREZ GFR IS code = 1092) sq m NOT ACCURATE CREATININE CLEARANCE IN PREDICTING GLOMERULAR FILTRATION RATE . ESTIMATED GFR I S NOT APPLICABLE FOR DIALYSIS PATIEN TS. [id number] 12:22:00 Test Item Value Reference Range Interpretation Comments MAGNESIUM (BEAKER) (test code = 1.6 mg/dL 1.6-2.6 627) CBC W/PLT COUNT & AUTO [id number] 12:02:00 Test Item Value Reference Range Interpretation Comments WHITE BLOOD CELL COUNT (BEAKER) 8.0 K/ L 3.5-10.5 (test code = 775) RED BLOOD CELL COUNT (BEAKER) 2.65 M/ L 3.93-5.22 L (test code = 761) HEMOGLOBIN (BEAKER) (test code = 7.9 GM/DL 11.2-15.7 L 410) HEMATOCRIT (BEAKER) (test code = 25.1 % 34.1-44.9 L 411) MEAN CORPUSCULAR VOLUME (BEAKER) 94.7 fL 79.4-94.8 (test code = 753) MEAN CORPUSCULAR HEMOGLOBIN 29.8 pg 25.6-32.2 (BEAKER) (test code = 751) MEAN CORPUSCULAR HEMOGLOBIN CONC 31.5 GM/DL 32.2-35.5 L (BEAKER) (test code = 752) RED CELL DISTRIBUTION WIDTH 14.0 % 11.7-14.4 (BEAKER) (test code = 412) PLATELET COUNT (BEAKER) (test 258 K/CU MM 150-450 code = 756) MEAN PLATELET VOLUME (BEAKER) 12.1 fL 9.4-12.3 (test code = 754) NUCLEATED RED BLOOD CELLS 0 /100 WBC 0-0 (BEAKER) (test code = 413) NEUTROPHILS RELATIVE PERCENT 66 % (BEAKER) (test code = 429) LYMPHOCYTES RELATIVE PERCENT 20 % (BEAKER) (test code = 430) MONOCYTES RELATIVE PERCENT 10 % (BEAKER) (test code = 431) EOSINOPHILS RELATIVE PERCENT 4 % (BEAKER) (test code = 432) BASOPHILS RELATIVE PERCENT 1 % (BEAKER) (test code = 437) NEUTROPHILS ABSOLUTE COUNT 5.24 K/ L 1.56-6.13 (BEAKER) (test code = 670) LYMPHOCYTES ABSOLUTE COUNT 1.61 K/ L 1.18-3.74 (BEAKER) (test code = 414) MONOCYTES ABSOLUTE COUNT (BEAKER) 0.78 K/ L 0.24-0.36 H (test code = 415) EOSINOPHILS ABSOLUTE COUNT 0.28 K/ L 0.04-0.36 (BEAKER) (test code = 416) BASOPHILS ABSOLUTE COUNT (BEAKER) 0.04 K/ L 0.01-0.08 (test code = 417) IMMATURE GRANULOCYTES-RELATIVE 0 % 0-1 PERCENT (BEAKER) (test code = 2801) POCT-GLUCOSE [id number] 11:10:00 Test Item Value Reference Range Interpretation Comments POC-GLUCOSE METER 114 mg/dL 70-110 H TESTED AT [place] [address] ([facility]) (test code = AUDREY Wen [facility] 1538) [address] POCT-GLUCOSE [id number] 08:09:00 Test Item Value Reference Range Interpretation Comments POC-GLUCOSE METER 120 mg/dL 70-110 H TESTED AT [place] [id number] ([facility]) (test code = AUDREY Wen [facility] 1538) [address] PROTEIN, RANDOM [id number] 00:08:00 Test Item Value Reference Range Interpretation Comments PROTEIN, URINE (BEAKER) (test code 372 mg/dL 0-14 H = 1569) CREATININE, RANDOM [id number] 23:14:00 Test Item Value Reference Range Interpretation Comments CREATININE URINE (BEAKER) (test 26.6 mg/dL code = 375) Reference Range: No NormalsUREA NITROGEN, RANDOM [id number] 23:14:00 Test Item Value Reference Range Interpretation Comments UREA NITROGEN URINE (BEAKER) (test 163 mg/dL code = 538) Reference Range: No NormalsPOCT-GLUCOSE [id number] 20:49:00 Test Item Value Reference Range Interpretation Comments POC-GLUCOSE METER 144 mg/dL 70-110 H TESTED AT [place] [address] ([facility]) (test code = [facility] Wen [facility] 1538) [address] POCT-GLUCOSE [id number] 16:59:00 Test Item Value Reference Range Interpretation Comments POC-GLUCOSE METER 125 mg/dL 70-110 H TESTED AT [place] [address] ([facility]) (test code = [facility]UD[place] Wen [facility] 1538) [address] POCT-GLUCOSE [id number] 12:30:00 Test Item Value Reference Range Interpretation Comments POC-GLUCOSE METER 91 mg/dL 70-110 TESTED AT [place] [address] ([facility]) (test code = [facility] Bettye [facility] [address] 1538) POCT-GLUCOSE [id number] 07:32:00 Test Item Value Reference Range Interpretation Comments POC-GLUCOSE METER 147 mg/dL 70-110 H TESTED AT [place] [address] ([facility]) (test code = [facility] Bettye [facility] 1538) [address] BASIC METABOLIC [id number] 07:06:00 Test Item Value Reference Range Interpretation Comments SODIUM (BEAKER) 142 meq/L 136-145 (test code = 381) POTASSIUM (BEAKER) 4.3 meq/L 3.5-5.1 (test code = 379) CHLORIDE (BEAKER) 112 meq/L 98-107 H (test code = 382) CO2 (BEAKER) (test 22 meq/L 22-29 code = 355) BLOOD UREA NITROGEN 45 mg/dL 7-21 H (BEAKER) (test code = 354) CREATININE (BEAKER) 3.94 mg/dL 0.57-1.25 H (test code = 358) GLUCOSE RANDOM 193 mg/dL 70-105 H (BEAKER) (test code = 652) CALCIUM (BEAKER) 8.2 mg/dL 8.4-10.2 L (test code = 697) EGFR (BEAKER) (test 12 mL/min/1.73 ESTIMA ANDREZ GFR IS code = 1092) sq m NOT ACCURATE CREATININE CLEARANCE IN PREDICTING GLOMERULAR FILTRATION RATE . ESTIMATED GFR I S NOT APPLICABLE FOR DIALYSIS PATIEN TS. [id number] 06:45:00 Test Item Value Reference Range Interpretation Comments MAGNESIUM (BEAKER) (test code = 1.8 mg/dL 1.6-2.6 627) CBC W/PLT COUNT & AUTO [id number] 05:49:00 Test Item Value Reference Range Interpretation Comments WHITE BLOOD CELL COUNT (BEAKER) 9.1 K/ L 3.5-10.5 (test code = 775) RED BLOOD CELL COUNT (BEAKER) 2.53 M/ L 3.93-5.22 L (test code = 761) HEMOGLOBIN (BEAKER) (test code = 7.5 GM/DL 11.2-15.7 L 410) HEMATOCRIT (BEAKER) (test code = 24.1 % 34.1-44.9 L 411) MEAN CORPUSCULAR VOLUME (BEAKER) 95.3 fL 79.4-94.8 H (test code = 753) MEAN CORPUSCULAR HEMOGLOBIN 29.6 pg 25.6-32.2 (BEAKER) (test code = 751) MEAN CORPUSCULAR HEMOGLOBIN CONC 31.1 GM/DL 32.2-35.5 L (BEAKER) (test code = 752) RED CELL DISTRIBUTION WIDTH 14.3 % 11.7-14.4 (BEAKER) (test code = 412) PLATELET COUNT (BEAKER) (test 247 K/CU MM 150-450 code = 756) MEAN PLATELET VOLUME (BEAKER) 12.1 fL 9.4-12.3 (test code = 754) NUCLEATED RED BLOOD CELLS 0 /100 WBC 0-0 (BEAKER) (test code = 413) NEUTROPHILS RELATIVE PERCENT 69 % (BEAKER) (test code = 429) LYMPHOCYTES RELATIVE PERCENT 18 % (BEAKER) (test code = 430) MONOCYTES RELATIVE PERCENT 11 % (BEAKER) (test code = 431) EOSINOPHILS RELATIVE PERCENT 2 % (BEAKER) (test code = 432) BASOPHILS RELATIVE PERCENT 0 % (BEAKER) (test code = 437) NEUTROPHILS ABSOLUTE COUNT 6.20 K/ L 1.56-6.13 H (BEAKER) (test code = 670) LYMPHOCYTES ABSOLUTE COUNT 1.62 K/ L 1.18-3.74 (BEAKER) (test code = 414) MONOCYTES ABSOLUTE COUNT (BEAKER) 0.96 K/ L 0.24-0.36 H (test code = 415) EOSINOPHILS ABSOLUTE COUNT 0.21 K/ L 0.04-0.36 (BEAKER) (test code = 416) BASOPHILS ABSOLUTE COUNT (BEAKER) 0.04 K/ L 0.01-0.08 (test code = 417) IMMATURE GRANULOCYTES-RELATIVE 0 % 0-1 PERCENT (BEAKER) (test code = 2801) POCT-GLUCOSE [id number] 19:53:00 Test Item Value Reference Range Interpretation Comments POC-GLUCOSE METER 104 mg/dL 70-110 TESTED AT [place] [address] ([facility]) (test code = AUD[place] Wen [facility] 1538) [address] POCT-GLUCOSE [id number] 17:13:00 Test Item Value Reference Range Interpretation Comments POC-GLUCOSE METER 116 mg/dL 70-110 H TESTED AT [place] [address] ([facility]) (test code = AUDRE[place] Wen [facility] 1538) [address] POCT-GLUCOSE [id number] 12:52:00 Test Item Value Reference Range Interpretation Comments POC-GLUCOSE METER 94 mg/dL 70-110 TESTED AT [place] [address] [facility] (test code = AUD[place] Wen [facility] [address] 1538) POCT-GLUCOSE [id number] 07:54:00 Test Item Value Reference Range Interpretation Comments POC-GLUCOSE METER 91 mg/dL 70-110 TESTED AT [facility] 6720 (BEAKER) (test code = [facility] [address] 1538) BASIC METABOLIC [id number] 04:57:00 Test Item Value Reference Range Interpretation Comments SODIUM (BEAKER) 142 meq/L 136-145 (test code = 381) POTASSIUM (BEAKER) 3.5 meq/L 3.5-5.1 (test code = 379) CHLORIDE (BEAKER) 111 meq/L 98-107 H (test code = 382) CO2 (BEAKER) (test 24 meq/L 22-29 code = 355) BLOOD UREA NITROGEN 42 mg/dL 7-21 H (BEAKER) (test code = 354) CREATININE (BEAKER) 3.56 mg/dL 0.57-1.25 H (test code = 358) GLUCOSE RANDOM 90 mg/dL 70-105 (BEAKER) (test code = 652) CALCIUM (BEAKER) 8.4 mg/dL 8.4-10.2 (test code = 697) EGFR (BEAKER) (test 14 mL/min/1.73 ESTIMA ANDREZ GFR IS code = 1092) sq m NOT ACCURATE CREATININE CLEARANCE IN PREDICTING GLOMERULAR FILTRATION RATE . ESTIMATED GFR I S NOT APPLICABLE FOR DIALYSIS PATIEN TS. [id number] 04:50:00 Test Item Value Reference Range Interpretation Comments MAGNESIUM (BEAKER) (test code = 1.8 mg/dL 1.6-2.6 627) POCT-GLUCOSE [id number] 21:19:00 Test Item Value Reference Range Interpretation Comments POC-GLUCOSE METER 142 mg/dL 70-110 H TESTED AT [facility] 6720 (BEAKER) (test code = [facility] 1538) [address] POCT-GLUCOSE [id number] 16:51:00 Test Item Value Reference Range Interpretation Comments POC-GLUCOSE METER 196 mg/dL 70-110 H TESTED AT [facility] 6720 (BEAKER) (test code = [facility] 1538) [address] POCT-GLUCOSE [id number] 12:00:00 Test Item Value Reference Range Interpretation Comments POC-GLUCOSE METER 76 mg/dL 70-110 TESTED AT [facility] 6720 (BEAKER) (test code = [facility] [address] 1538) BASIC METABOLIC [id number] 11:34:00 Test Item Value Reference Range Interpretation Comments SODIUM (BEAKER) 140 meq/L 136-145 (test code = 381) POTASSIUM (BEAKER) 3.4 meq/L 3.5-5.1 L (test code = 379) CHLORIDE (BEAKER) 111 meq/L 98-107 H (test code = 382) CO2 (BEAKER) (test 22 meq/L 22-29 code = 355) BLOOD UREA NITROGEN 42 mg/dL 7-21 H (BEAKER) (test code = 354) CREATININE (BEAKER) 3.60 mg/dL 0.57-1.25 H (test code = 358) GLUCOSE RANDOM 83 mg/dL 70-105 (BEAKER) (test code = 652) CALCIUM (BEAKER) 8.4 mg/dL 8.4-10.2 (test code = 697) EGFR (BEAKER) (test 14 mL/min/1.73 ESTIMA ANDREZ GFR IS code = 1092) sq m NOT ACCURATE CREATININE CLEARANCE IN PREDICTING GLOMERULAR FILTRATION RATE . ESTIMATED GFR I S NOT APPLICABLE FOR DIALYSIS PATIEN TS. [id number] 11:29:00 Test Item Value Reference Range Interpretation Comments MAGNESIUM (BEAKER) (test code = 1.6 mg/dL 1.6-2.6 627) POCT-GLUCOSE [id number] 07:27:00 Test Item Value Reference Range Interpretation Comments POC-GLUCOSE METER 104 mg/dL 70-110 TESTED AT [facility] 6720 (BEAKER) (test code = AUDREY Wen [facility] 1538) [address] POCT-GLUCOSE [id number] 22:46:00 Test Item Value Reference Range Interpretation Comments POC-GLUCOSE METER 153 mg/dL 70-110 H TESTED AT [facility] 6720 (BEAKER) (test code = AUDREY Wen [facility] 1538) [address] POCT-GLUCOSE [id number] 16:45:00 Test Item Value Reference Range Interpretation Comments POC-GLUCOSE METER 106 mg/dL 70-110 TESTED AT [facility] 6720 (BEAKER) (test code = AUDREY Wen [facility] 1538) [address] POCT-GLUCOSE [id number] 11:29:00 Test Item Value Reference Range Interpretation Comments POC-GLUCOSE METER 145 mg/dL 70-110 H TESTED AT [facility] 6720 (BEAKER) (test code = [place] Wen [place] 1538) [address] POCT-GLUCOSE [id number] 07:34:00 Test Item Value Reference Range Interpretation Comments POC-GLUCOSE METER 177 mg/dL 70-110 H TESTED AT [facility] 6720 (BEAKER) (test code = [place] 1538) [address] BASIC METABOLIC [id number] 06:41:00 Test Item Value Reference Range Interpretation Comments SODIUM (BEAKER) 140 meq/L 136-145 (test code = 381) POTASSIUM (BEAKER) 3.7 meq/L 3.5-5.1 (test code = 379) CHLORIDE (BEAKER) 112 meq/L 98-107 H (test code = 382) CO2 (BEAKER) (test 22 meq/L 22-29 code = 355) BLOOD UREA NITROGEN 42 mg/dL 7-21 H (BEAKER) (test code = 354) CREATININE (BEAKER) 3.62 mg/dL 0.57-1.25 H (test code = 358) GLUCOSE RANDOM 174 mg/dL 70-105 H (BEAKER) (test code = 652) CALCIUM (BEAKER) 8.7 mg/dL 8.4-10.2 (test code = 697) EGFR (BEAKER) (test 14 mL/min/1.73 ESTIMA ANDREZ GFR IS code = 1092) sq m NOT ACCURATE CREATININE CLEARANCE IN PREDICTING GLOMERULAR FILTRATION RATE . ESTIMATED GFR I S NOT APPLICABLE FOR DIALYSIS PATIEN TS. [id number] 06:25:00 Test Item Value Reference Range Interpretation Comments MAGNESIUM (BEAKER) (test code = 1.8 mg/dL 1.6-2.6 627) CBC W/PLT COUNT & AUTO [id number] 05:51:00 Test Item Value Reference Range Interpretation Comments WHITE BLOOD CELL COUNT (BEAKER) 9.8 K/ L 3.5-10.5 (test code = 775) RED BLOOD CELL COUNT (BEAKER) 2.72 M/ L 3.93-5.22 L (test code = 761) HEMOGLOBIN (BEAKER) (test code = 8.0 GM/DL 11.2-15.7 L 410) HEMATOCRIT (BEAKER) (test code = 25.6 % 34.1-44.9 L 411) MEAN CORPUSCULAR VOLUME (BEAKER) 94.1 fL 79.4-94.8 (test code = 753) MEAN CORPUSCULAR HEMOGLOBIN 29.4 pg 25.6-32.2 (BEAKER) (test code = 751) MEAN CORPUSCULAR HEMOGLOBIN CONC 31.3 GM/DL 32.2-35.5 L (BEAKER) (test code = 752) RED CELL DISTRIBUTION WIDTH 14.8 % 11.7-14.4 H (BEAKER) (test code = 412) PLATELET COUNT (BEAKER) (test 245 K/CU MM 150-450 code = 756) MEAN PLATELET VOLUME (BEAKER) 12.2 fL 9.4-12.3 (test code = 754) NUCLEATED RED BLOOD CELLS 0 /100 WBC 0-0 (BEAKER) (test code = 413) NEUTROPHILS RELATIVE PERCENT 66 % (BEAKER) (test code = 429) LYMPHOCYTES RELATIVE PERCENT 18 % (BEAKER) (test code = 430) MONOCYTES RELATIVE PERCENT 11 % (BEAKER) (test code = 431) EOSINOPHILS RELATIVE PERCENT 4 % (BEAKER) (test code = 432) BASOPHILS RELATIVE PERCENT 0 % (BEAKER) (test code = 437) NEUTROPHILS ABSOLUTE COUNT 6.50 K/ L 1.56-6.13 H (BEAKER) (test code = 670) LYMPHOCYTES ABSOLUTE COUNT 1.75 K/ L 1.18-3.74 (BEAKER) (test code = 414) MONOCYTES ABSOLUTE COUNT (BEAKER) 1.11 K/ L 0.24-0.36 H (test code = 415) EOSINOPHILS ABSOLUTE COUNT 0.40 K/ L 0.04-0.36 H (BEAKER) (test code = 416) BASOPHILS ABSOLUTE COUNT (BEAKER) 0.03 K/ L 0.01-0.08 (test code = 417) IMMATURE GRANULOCYTES-RELATIVE 0 % 0-1 PERCENT (BEAKER) (test code = 2809) POCT-GLUCOSE [id number] 22:54:00 Test Item Value Reference Range Interpretation Comments POC-GLUCOSE METER 173 mg/dL 70-110 H [facility]ED [facility] [facility] (BEAKER) (test code = [place] 1538) [address] POCT-GLUCOSE [id number] 16:55:00 Test Item Value Reference Range Interpretation Comments POC-GLUCOSE METER 95 mg/dL 70-110 TESTED AT [facility] 6720 (BEAKER) (test code = [place] [address] 1538) URIC [id number] 12:46:00 Test Item Value Reference Range Interpretation Comments URIC ACID (BEAKER) (test code = 5.9 mg/dL 2.6-7.2 773) POCT-GLUCOSE [id number] 11:38:00 Test Item Value Reference Range Interpretation Comments POC-GLUCOSE METER 129 mg/dL 70-110 H TESTED AT [facility] 6720 (BEAKER) (test code = AUDREY Wen [facility] 1538) [address] [id number] 09:39:00 Test Item Value Reference Range Interpretation Comments MAGNESIUM (BEAKER) (test code = 1.9 mg/dL 1.6-2.6 627) BASIC METABOLIC [id number] 09:05:00 Test Item Value Reference Range Interpretation Comments SODIUM (BEAKER) 141 meq/L 136-145 (test code = 381) POTASSIUM (BEAKER) 3.9 meq/L 3.5-5.1 (test code = 379) CHLORIDE (BEAKER) 113 meq/L 98-107 H (test code = 382) CO2 (BEAKER) (test 22 meq/L 22-29 code = 355) BLOOD UREA NITROGEN 41 mg/dL 7-21 H (BEAKER) (test code = 354) CREATININE (BEAKER) 3.65 mg/dL 0.57-1.25 H (test code = 358) GLUCOSE RANDOM 202 mg/dL 70-105 H (BEAKER) (test code = 652) CALCIUM (BEAKER) 8.9 mg/dL 8.4-10.2 (test code = 697) EGFR (BEAKER) (test 13 mL/min/1.73 ESTIMA ANDREZ GFR IS code = 1092) sq m NOT ACCURATE CREATININE CLEARANCE IN PREDICTING GLOMERULAR FILTRATION RATE . ESTIMATED GFR I S NOT APPLICABLE FOR DIALYSIS PATIEN TS. CBC W/PLT COUNT & AUTO [id number] 08:22:00 Test Item Value Reference Range Interpretation Comments WHITE BLOOD CELL COUNT (BEAKER) 10.2 K/ L 3.5-10.5 (test code = 775) RED BLOOD CELL COUNT (BEAKER) 2.85 M/ L 3.93-5.22 L (test code = 761) HEMOGLOBIN (BEAKER) (test code = 8.5 GM/DL 11.2-15.7 L 410) HEMATOCRIT (BEAKER) (test code = 26.8 % 34.1-44.9 L 411) MEAN CORPUSCULAR VOLUME (BEAKER) 94.0 fL 79.4-94.8 (test code = 753) MEAN CORPUSCULAR HEMOGLOBIN 29.8 pg 25.6-32.2 (BEAKER) (test code = 751) MEAN CORPUSCULAR HEMOGLOBIN CONC 31.7 GM/DL 32.2-35.5 L (BEAKER) (test code = 752) RED CELL DISTRIBUTION WIDTH 15.0 % 11.7-14.4 H (BEAKER) (test code = 412) PLATELET COUNT (BEAKER) (test 248 K/CU MM 150-450 code = 756) MEAN PLATELET VOLUME (BEAKER) 11.7 fL 9.4-12.3 (test code = 754) NUCLEATED RED BLOOD CELLS 0 /100 WBC 0-0 (BEAKER) (test code = 413) NEUTROPHILS RELATIVE PERCENT 69 % (BEAKER) (test code = 429) LYMPHOCYTES RELATIVE PERCENT 16 % (BEAKER) (test code = 430) MONOCYTES RELATIVE PERCENT 10 % (BEAKER) (test code = 431) EOSINOPHILS RELATIVE PERCENT 4 % (BEAKER) (test code = 432) BASOPHILS RELATIVE PERCENT 0 % (BEAKER) (test code = 437) NEUTROPHILS ABSOLUTE COUNT 7.01 K/ L 1.56-6.13 H (BEAKER) (test code = 670) LYMPHOCYTES ABSOLUTE COUNT 1.62 K/ L 1.18-3.74 (BEAKER) (test code = 414) MONOCYTES ABSOLUTE COUNT (BEAKER) 1.04 K/ L 0.24-0.36 H (test code = 415) EOSINOPHILS ABSOLUTE COUNT 0.40 K/ L 0.04-0.36 H (BEAKER) (test code = 416) BASOPHILS ABSOLUTE COUNT (BEAKER) 0.03 K/ L 0.01-0.08 (test code = 417) IMMATURE GRANULOCYTES-RELATIVE 1 % 0-1 PERCENT (BEAKER) (test code = 2801) POCT-GLUCOSE [id number] 07:28:00 Test Item Value Reference Range Interpretation Comments POC-GLUCOSE METER 253 mg/dL 70-110 H TESTED AT [place] [address] (BEAKER) (test code = AUDREY Wen [facility] 1538) [address] POCT-GLUCOSE [id number] 20:28:00 Test Item Value Reference Range Interpretation Comments POC-GLUCOSE METER 186 mg/dL 70-110 H TESTED AT [place] [address] (BEAKER) (test code = AUDREY Wen [facility] 1538) [address] POCT-GLUCOSE [id number] 17:39:00 Test Item Value Reference Range Interpretation Comments POC-GLUCOSE METER 130 mg/dL 70-110 H TESTED AT [place] [address] (BEAKER) (test code = AUDREY Wen [facility] 1538) [address] POCT-GLUCOSE [id number] 11:55:00 Test Item Value Reference Range Interpretation Comments POC-GLUCOSE METER 212 mg/dL 70-110 H TESTED AT [place] [address] (BEAKER) (test code = AUDREY Wen [facility] 1538) [address] POCT-GLUCOSE [id number] 08:14:00 Test Item Value Reference Range Interpretation Comments POC-GLUCOSE METER 178 mg/dL 70-110 H TESTED AT [place] [address] (BEAKER) (test code = [facility] Bettye [facility] 1538) [address] BASIC METABOLIC [id number] 07:08:00 Test Item Value Reference Range Interpretation Comments SODIUM (BEAKER) 141 meq/L 136-145 (test code = 381) POTASSIUM (BEAKER) 3.9 meq/L 3.5-5.1 (test code = 379) CHLORIDE (BEAKER) 113 meq/L 98-107 H (test code = 382) CO2 (BEAKER) (test 22 meq/L 22-29 code = 355) BLOOD UREA NITROGEN 39 mg/dL 7-21 H (BEAKER) (test code = 354) CREATININE (BEAKER) 3.40 mg/dL 0.57-1.25 H (test code = 358) GLUCOSE RANDOM 151 mg/dL 70-105 H (BEAKER) (test code = 652) CALCIUM (BEAKER) 9.1 mg/dL 8.4-10.2 (test code = 697) EGFR (BEAKER) (test 15 mL/min/1.73 ESTIMA ANDREZ GFR IS code = 1092) sq m NOT ACCURATE CREATININE CLEARANCE IN PREDICTING GLOMERULAR FILTRATION RATE . ESTIMATED GFR I S NOT APPLICABLE FOR DIALYSIS PATIEN TS. [id number] 06:59:00 Test Item Value Reference Range Interpretation Comments MAGNESIUM (BEAKER) (test code = 1.8 mg/dL 1.6-2.6 627) CBC W/PLT COUNT & AUTO [id number] 06:34:00 Test Item Value Reference Range Interpretation Comments WHITE BLOOD CELL COUNT (BEAKER) 9.5 K/ L 3.5-10.5 (test code = 775) RED BLOOD CELL COUNT (BEAKER) 2.84 M/ L 3.93-5.22 L (test code = 761) HEMOGLOBIN (BEAKER) (test code = 8.4 GM/DL 11.2-15.7 L 410) HEMATOCRIT (BEAKER) (test code = 26.8 % 34.1-44.9 L 411) MEAN CORPUSCULAR VOLUME (BEAKER) 94.4 fL 79.4-94.8 (test code = 753) MEAN CORPUSCULAR HEMOGLOBIN 29.6 pg 25.6-32.2 (BEAKER) (test code = 751) MEAN CORPUSCULAR HEMOGLOBIN CONC 31.3 GM/DL 32.2-35.5 L (BEAKER) (test code = 752) RED CELL DISTRIBUTION WIDTH 15.5 % 11.7-14.4 H (BEAKER) (test code = 412) PLATELET COUNT (BEAKER) (test 237 K/CU MM 150-450 code = 756) MEAN PLATELET VOLUME (BEAKER) 12.5 fL 9.4-12.3 H (test code = 754) NUCLEATED RED BLOOD CELLS 0 /100 WBC 0-0 (BEAKER) (test code = 413) NEUTROPHILS RELATIVE PERCENT 66 % (BEAKER) (test code = 429) LYMPHOCYTES RELATIVE PERCENT 20 % (BEAKER) (test code = 430) MONOCYTES RELATIVE PERCENT 9 % (BEAKER) (test code = 431) EOSINOPHILS RELATIVE PERCENT 4 % (BEAKER) (test code = 432) BASOPHILS RELATIVE PERCENT 0 % (BEAKER) (test code = 437) NEUTROPHILS ABSOLUTE COUNT 6.29 K/ L 1.56-6.13 H (BEAKER) (test code = 670) LYMPHOCYTES ABSOLUTE COUNT 1.91 K/ L 1.18-3.74 (BEAKER) (test code = 414) MONOCYTES ABSOLUTE COUNT (BEAKER) 0.86 K/ L 0.24-0.36 H (test code = 415) EOSINOPHILS ABSOLUTE COUNT 0.39 K/ L 0.04-0.36 H (BEAKER) (test code = 416) BASOPHILS ABSOLUTE COUNT (BEAKER) 0.03 K/ L 0.01-0.08 (test code = 417) IMMATURE GRANULOCYTES-RELATIVE 0 % 0-1 PERCENT (BEAKER) (test code = 2801) POCT-GLUCOSE [id number] 20:06:00 Test Item Value Reference Range Interpretation Comments POC-GLUCOSE METER 113 mg/dL 70-110 H TESTED AT [facility] 67 [facility] (test code = [facility] Bettye [facility] 1538) [address] POCT-GLUCOSE [id number] 17:11:00 Test Item Value Reference Range Interpretation Comments POC-GLUCOSE METER 123 mg/dL 70-110 H TESTED AT [place] [address] ([facility]) (test code = [facility] Bettye [facility] 1538) [address] POCT-GLUCOSE [id number] 12:31:00 Test Item Value Reference Range Interpretation Comments POC-GLUCOSE METER 105 mg/dL 70-110 TESTED AT [place] [address] ([facility]) (test code = [facility] 1538) [address] POCT-GLUCOSE [id number] 07:41:00 Test Item Value Reference Range Interpretation Comments POC-GLUCOSE METER 95 mg/dL 70-110 TESTED AT [place] [address] (BEAKER) (test code = [facility] [address] 1538) BASIC METABOLIC [id number] 06:26:00 Test Item Value Reference Range Interpretation Comments SODIUM (BEAKER) 141 meq/L 136-145 (test code = 381) POTASSIUM (BEAKER) 3.8 meq/L 3.5-5.1 (test code = 379) CHLORIDE (BEAKER) 113 meq/L 98-107 H (test code = 382) CO2 (BEAKER) (test 25 meq/L 22-29 code = 355) BLOOD UREA NITROGEN 40 mg/dL 7-21 H (BEAKER) (test code = 354) CREATININE (BEAKER) 3.15 mg/dL 0.57-1.25 H (test code = 358) GLUCOSE RANDOM 81 mg/dL 70-105 (BEAKER) (test code = 652) CALCIUM (BEAKER) 9.2 mg/dL 8.4-10.2 (test code = 697) EGFR (BEAKER) (test 16 mL/min/1.73 ESTIMA ANDREZ GFR IS code = 1092) sq m NOT ACCURATE CREATININE CLEARANCE IN PREDICTING GLOMERULAR FILTRATION RATE . ESTIMATED GFR I S NOT APPLICABLE FOR DIALYSIS PATIEN TS. [id number] 06:19:00 Test Item Value Reference Range Interpretation Comments MAGNESIUM (BEAKER) (test code = 1.9 mg/dL 1.6-2.6 627) CBC W/PLT COUNT & AUTO [id number] 06:06:00 Test Item Value Reference Range Interpretation Comments WHITE BLOOD CELL COUNT (BEAKER) 9.8 K/ L 3.5-10.5 (test code = 775) RED BLOOD CELL COUNT (BEAKER) 2.36 M/ L 3.93-5.22 L (test code = 761) HEMOGLOBIN (BEAKER) (test code = 7.0 GM/DL 11.2-15.7 L 410) HEMATOCRIT (BEAKER) (test code = 22.3 % 34.1-44.9 L 411) MEAN CORPUSCULAR VOLUME (BEAKER) 94.5 fL 79.4-94.8 (test code = 753) MEAN CORPUSCULAR HEMOGLOBIN 29.7 pg 25.6-32.2 (BEAKER) (test code = 751) MEAN CORPUSCULAR HEMOGLOBIN CONC 31.4 GM/DL 32.2-35.5 L (BEAKER) (test code = 752) RED CELL DISTRIBUTION WIDTH 15.6 % 11.7-14.4 H (BEAKER) (test code = 412) PLATELET COUNT (BEAKER) (test 225 K/CU MM 150-450 code = 756) MEAN PLATELET VOLUME (BEAKER) 12.3 fL 9.4-12.3 (test code = 754) NUCLEATED RED BLOOD CELLS 0 /100 WBC 0-0 (BEAKER) (test code = 413) NEUTROPHILS RELATIVE PERCENT 63 % (BEAKER) (test code = 429) LYMPHOCYTES RELATIVE PERCENT 23 % (BEAKER) (test code = 430) MONOCYTES RELATIVE PERCENT 9 % (BEAKER) (test code = 431) EOSINOPHILS RELATIVE PERCENT 5 % (BEAKER) (test code = 432) BASOPHILS RELATIVE PERCENT 0 % (BEAKER) (test code = 437) NEUTROPHILS ABSOLUTE COUNT 6.17 K/ L 1.56-6.13 H (BEAKER) (test code = 670) LYMPHOCYTES ABSOLUTE COUNT 2.27 K/ L 1.18-3.74 (BEAKER) (test code = 414) MONOCYTES ABSOLUTE COUNT (BEAKER) 0.84 K/ L 0.24-0.36 H (test code = 415) EOSINOPHILS ABSOLUTE COUNT 0.44 K/ L 0.04-0.36 H (BEAKER) (test code = 416) BASOPHILS ABSOLUTE COUNT (BEAKER) 0.04 K/ L 0.01-0.08 (test code = 417) IMMATURE GRANULOCYTES-RELATIVE 0 % 0-1 PERCENT (BEAKER) (test code = 2801) POCT-GLUCOSE [id number] 22:48:00 Test Item Value Reference Range Interpretation Comments POC-GLUCOSE METER 106 mg/dL 70-110 TESTED AT [place] [address] ([facility]) (test code = AUDREY Wen [facility] 1538) [address] POCT-GLUCOSE [id number] 17:24:00 Test Item Value Reference Range Interpretation Comments POC-GLUCOSE METER 106 mg/dL 70-110 TESTED AT [place] [address] ([facility]) [facility] 1538) [address] POCT-GLUCOSE [id number] 12:04:00 Test Item Value Reference Range Interpretation Comments POC-GLUCOSE METER 206 mg/dL 70-110 H TESTED AT [place] [address] ([facility]) (test code = AUDREY Wen [facility] 1538) [address] POCT-GLUCOSE [id number] 07:23:00 Test Item Value Reference Range Interpretation Comments POC-GLUCOSE METER 221 mg/dL 70-110 H TESTED AT [place] [address] ([facility]) (test code = [facility] Bettye [facility] 1538) [address] VITAMIN B12 AND [id number] 06:47:00 Test Item Value Reference Range Interpretation Comments VITAMIN B12 (BEAKER) (test code = 441 pg/mL 213-816 774) FOLATE (BEAKER) (test code = 362) 7.7 ng/mL >=7.0 [id number] 06:25:00 Test Item Value Reference Range Interpretation Comments MAGNESIUM (BEAKER) (test code = 1.9 mg/dL 1.6-2.6 627) BASIC METABOLIC [id number] 06:25:00 Test Item Value Reference Range Interpretation Comments SODIUM (BEAKER) 141 meq/L 136-145 (test code = 381) POTASSIUM (BEAKER) 3.7 meq/L 3.5-5.1 (test code = 379) CHLORIDE (BEAKER) 111 meq/L 98-107 H (test code = 382) CO2 (BEAKER) (test 23 meq/L 22-29 code = 355) BLOOD UREA NITROGEN 39 mg/dL 7-21 H (BEAKER) (test code = 354) CREATININE (BEAKER) 3.25 mg/dL 0.57-1.25 H (test code = 358) GLUCOSE RANDOM 183 mg/dL 70-105 H (BEAKER) (test code = 652) CALCIUM (BEAKER) 9.8 mg/dL 8.4-10.2 (test code = 697) EGFR (BEAKER) (test 15 mL/min/1.73 ESTIMA ANDREZ GFR IS code = 1092) sq m NOT ACCURATE CREATININE CLEARANCE IN PREDICTING GLOMERULAR FILTRATION RATE . ESTIMATED GFR I S NOT APPLICABLE FOR DIALYSIS PATIEN TS. CREATININE, RANDOM [id number] 05:48:00 Test Item Value Reference Range Interpretation Comments CREATININE URINE (BEAKER) (test 40.4 mg/dL code = 375) Reference Range: No NormalsUREA NITROGEN, RANDOM [id number] 05:48:00 Test Item Value Reference Range Interpretation Comments UREA NITROGEN URINE (BEAKER) (test 224 mg/dL code = 538) Reference Range: No NormalsPOCT-GLUCOSE [id number] 16:52:00 Test Item Value Reference Range Interpretation Comments POC-GLUCOSE METER 123 mg/dL 70-110 H TESTED AT [facility] 6720 (BEAKER) (test code = [place] Bettye [place] 8448) [address] EEG AWAKE AND [id number] 14:21:00Reason for exam:->[facility] DATE OF TEST: 04/26/2018 ACC: [id number] Start time: 10:25 Stop time: 10:55 ICD-10: R55 CPT Code: 97674 HISTORY: 43 yo female with PMHx of [...] Cm MD Neurophysiology/Epilepsy Fellow Ruddy Burdick M.D., FACRODNEY, FAAN, STEPHY Professor of Neurology, [facility] [employer] Director, [facility] Head, [facility] POCT-GLUCOSE [id number] 11:40:00 Test Item Value Reference Range Interpretation Comments POC-GLUCOSE METER 116 mg/dL 70-110 H TESTED AT [facility] 6720 (BEAKER) (test code = AUDREY Wen [facility] 1538) [address] BASIC METABOLIC [id number] 10:48:00 Test Item Value Reference Range Interpretation Comments SODIUM (BEAKER) 141 meq/L 136-145 (test code = 381) POTASSIUM (BEAKER) 3.4 meq/L 3.5-5.1 L (test code = 379) CHLORIDE (BEAKER) 112 meq/L 98-107 H (test code = 382) CO2 (BEAKER) (test 20 meq/L 22-29 L code = 355) BLOOD UREA NITROGEN 40 mg/dL 7-21 H (BEAKER) (test code = 354) CREATININE (BEAKER) 3.21 mg/dL 0.57-1.25 H (test code = 358) GLUCOSE RANDOM 109 mg/dL 70-105 H (BEAKER) (test code = 652) CALCIUM (BEAKER) 11.3 mg/dL 8.4-10.2 H (test code = 697) EGFR (BEAKER) (test 16 mL/min/1.73 ESTIMA ANDREZ GFR IS code = 1092) sq m NOT ACCURATE CREATININE CLEARANCE IN PREDICTING GLOMERULAR FILTRATION RATE . ESTIMATED GFR I S NOT APPLICABLE FOR DIALYSIS PATIEN TS. CREATINE KINASE (CK)2018-04-26 10:43:00 Test Item Value Reference Range Interpretation Comments CREATINE KINASE TOTAL (BEAKER) (test 153 U/L 29-200 code = 380) POCT-GLUCOSE [id number] 07:38:00 Test Item Value Reference Range Interpretation Comments POC-GLUCOSE METER 125 mg/dL 70-110 H TESTED AT [facility] 6720 (BEAKER) (test code = [place] 1538) [address] CBC W/PLT COUNT & AUTO [id number] 06:49:00 Test Item Value Reference Range Interpretation Comments WHITE BLOOD CELL COUNT (BEAKER) 10.7 K/ L 3.5-10.5 H (test code = 775) RED BLOOD CELL COUNT (BEAKER) 2.58 M/ L 3.93-5.22 L (test code = 761) HEMOGLOBIN (BEAKER) (test code = 7.7 GM/DL 11.2-15.7 L 410) HEMATOCRIT (BEAKER) (test code = 24.0 % 34.1-44.9 L 411) MEAN CORPUSCULAR VOLUME (BEAKER) 93.0 fL 79.4-94.8 (test code = 753) MEAN CORPUSCULAR HEMOGLOBIN 29.8 pg 25.6-32.2 (BEAKER) (test code = 751) MEAN CORPUSCULAR HEMOGLOBIN CONC 32.1 GM/DL 32.2-35.5 L (BEAKER) (test code = 752) RED CELL DISTRIBUTION WIDTH 15.9 % 11.7-14.4 H (BEAKER) (test code = 412) PLATELET COUNT (BEAKER) (test 212 K/CU MM 150-450 code = 756) MEAN PLATELET VOLUME (BEAKER) 12.4 fL 9.4-12.3 H (test code = 754) NUCLEATED RED BLOOD CELLS 0 /100 WBC 0-0 (BEAKER) (test code = 413) NEUTROPHILS RELATIVE PERCENT 64 % (BEAKER) (test code = 429) LYMPHOCYTES RELATIVE PERCENT 24 % (BEAKER) (test code = 430) MONOCYTES RELATIVE PERCENT 8 % (BEAKER) (test code = 431) EOSINOPHILS RELATIVE PERCENT 4 % (BEAKER) (test code = 432) BASOPHILS RELATIVE PERCENT 0 % (BEAKER) (test code = 437) NEUTROPHILS ABSOLUTE COUNT 6.84 K/ L 1.56-6.13 H (BEAKER) (test code = 670) LYMPHOCYTES ABSOLUTE COUNT 2.55 K/ L 1.18-3.74 (BEAKER) (test code = 414) MONOCYTES ABSOLUTE COUNT (BEAKER) 0.84 K/ L 0.24-0.36 H (test code = 415) EOSINOPHILS ABSOLUTE COUNT 0.44 K/ L 0.04-0.36 H (BEAKER) (test code = 416) BASOPHILS ABSOLUTE COUNT (BEAKER) 0.03 K/ L 0.01-0.08 (test code = 417) IMMATURE GRANULOCYTES-RELATIVE 0 % 0-1 PERCENT (BEAKER) (test code = 2801) POCT-GLUCOSE [id number] 20:35:00 Test Item Value Reference Range Interpretation Comments POC-GLUCOSE METER 173 mg/dL 70-110 H TESTED AT [place] [address] ([facility] (test code = [facility] 1538) [address] POCT-GLUCOSE [id number] 18:13:00 Test Item Value Reference Range Interpretation Comments POC-GLUCOSE METER 128 mg/dL 70-110 H TESTED AT [place] [address] ([facility]) (test code = [facility] 1538) [address] POCT-GLUCOSE [id number] 12:16:00 Test Item Value Reference Range Interpretation Comments POC-GLUCOSE METER 235 mg/dL 70-110 H TESTED AT [place] [address] ([facility]) (test code = [facility] 1538) [address] VITAMIN D, [id number] 09:48:00 Test Item Value Reference Range Interpretation Comments VITAMIN D 25-OH (BEAKER) (test code 5.3 ng/mL 6.6-49.9 L = 2764) Effective 01/14/2017: Reference Range ChangeNew: 6.6-49.9 ng/mL Previous: 13.0-47.8 ng/mLRecommended Vitamin D Target Range: 30.0-40.0 ng/mLPOCT-GLUCOSE [id number] 08:59:00 Test Item Value Reference Range Interpretation Comments POC-GLUCOSE METER 298 mg/dL 70-110 H TESTED AT [facility] 6720 (BEAKER) (test code = [place] 1538) [address] HEMOGLOBIN [id number] 08:30:00 Test Item Value Reference Range Interpretation Comments HEMOGLOBIN A1C (BEAKER) (test code = 7.9 % 4.3-6.1 H 368) BASIC METABOLIC [id number] 08:16:00 Test Item Value Reference Range Interpretation Comments SODIUM (BEAKER) 138 meq/L 136-145 (test code = 381) POTASSIUM (BEAKER) 3.2 meq/L 3.5-5.1 L (test code = 379) CHLORIDE (BEAKER) 110 meq/L 98-107 H (test code = 382) CO2 (BEAKER) (test 24 meq/L 22-29 code = 355) BLOOD UREA NITROGEN 40 mg/dL 7-21 H (BEAKER) (test code = 354) CREATININE (BEAKER) 3.40 mg/dL 0.57-1.25 H (test code = 358) GLUCOSE RANDOM 243 mg/dL 70-105 H (BEAKER) (test code = 652) CALCIUM (BEAKER) 9.6 mg/dL 8.4-10.2 (test code = 697) EGFR (BEAKER) (test 15 mL/min/1.73 ESTIMA ANDREZ GFR IS code = 1092) sq m NOT ACCURATE CREATININE CLEARANCE IN PREDICTING GLOMERULAR FILTRATION RATE . ESTIMATED GFR I S NOT APPLICABLE FOR DIALYSIS PATIEN TS. PTH, [id number] 08:13:00 Test Item Value Reference Range Interpretation Comments PARATHYROID HORMONE INTACT 15.4 pg/mL 8.5-72.5 (BEAKER) (test code = 577) IRON, TIBC, % SAT. (WITHOUT FERRITIN)2018-04-25 08:06:00 Test Item Value Reference Range Interpretation Comments IRON (BEAKER) (test code = 547) 53.0 ug/dL 40.0-160.0 TOTAL IRON BINDING CAPACITY 113 ug/dL 250-450 L (BEAKER) (test code = 769) IRON % SATURATION (2) (BEAKER) 47 % 20-55 (test code = 2590) [id number] 08:05:00 Test Item Value Reference Range Interpretation Comments PHOSPHORUS (BEAKER) (test code = 5.2 mg/dL 2.3-4.7 H 604) CREATINE KINASE (CK)2018-04-25 08:05:00 Test Item Value Reference Range Interpretation Comments CREATINE KINASE TOTAL (BEAKER) (test 352 U/L 29-200 H code = 380) PROTEIN, RANDOM [id number] 02:06:00 Test Item Value Reference Range Interpretation Comments PROTEIN, URINE (BEAKER) (test code = > mg/dL 0-14 H 1569) SODIUM, RANDOM [id number] 00:57:00 Test Item Value Reference Range Interpretation Comments SODIUM URINE (BEAKER) (test code = < meq/L 243) Reference Range: No NormalsCREATININE, RANDOM [id number] 00:52:00 Test Item Value Reference Range Interpretation Comments CREATININE URINE (BEAKER) (test 131.0 mg/dL code = 375) Reference Range: No NormalsURINALYSIS W/ REFLEX URINE [id number] 00:32:00 Test Item Value Reference Range Interpretation Comments COLOR (BEAKER) (test code = 470) Yellow CLARITY (BEAKER) (test code = Hazy 469) SPECIFIC GRAVITY UA (BEAKER) 1.024 1.001-1.035 (test code = 468) PH UA (BEAKER) (test code = 467) 6.0 5.0-8.0 PROTEIN UA (BEAKER) (test code = 600 mg/dL Negative A 464) GLUCOSE UA (BEAKER) (test code = >1000 mg/dL Negative A 365) KETONES UA (BEAKER) (test code = Negative Negative 371) BILIRUBIN UA (BEAKER) (test code Negative Negative = 462) BLOOD UA (BEAKER) (test code = Moderate Negative A 461) NITRITE UA (BEAKER) (test code = Negative Negative 465) LEUKOCYTE ESTERASE UA (BEAKER) Negative Negative (test code = 466) UROBILINOGEN UA (BEAKER) (test 0.2 mg/dL 0.2-1.0 code = 463) RBC UA (BEAKER) (test code = 519) 5 /HPF WBC UA (BEAKER) (test code = 520) 5 /HPF BACTERIA (BEAKER) (test code = Occasional 517) MUCUS (BEAKER) (test code = 1574) Rare SQUAMOUS EPITHELIAL (BEAKER) 16 /HPF (test code = 516) HYALINE CASTS (BEAKER) (test code 21 /LPF = 514) GRANULAR CASTS (BEAKER) (test 30 /LPF code = 515) AMORPHOUS CRYSTALS (BEAKER) (test Many code = 1584) SOURCE(BEAKER) (test code = 2795) POCT-GLUCOSE [id number] 21:23:00 Test Item Value Reference Range Interpretation Comments POC-GLUCOSE METER 250 mg/dL 70-110 H TESTED AT [facility] 67[address] (BEAKER) (test code = [place] 1538) [address] BASIC METABOLIC [id number] 20:14:00 Test Item Value Reference Range Interpretation Comments SODIUM (BEAKER) 138 meq/L 136-145 (test code = 381) POTASSIUM (BEAKER) 3.2 meq/L 3.5-5.1 L (test code = 379) CHLORIDE (BEAKER) 108 meq/L 98-107 H (test code = 382) CO2 (BEAKER) (test 21 meq/L 22-29 L code = 355) BLOOD UREA NITROGEN 35 mg/dL 7-21 H (BEAKER) (test code = 354) CREATININE (BEAKER) 3.30 mg/dL 0.57-1.25 H (test code = 358) GLUCOSE RANDOM 214 mg/dL 70-105 H (BEAKER) (test code = 652) CALCIUM (BEAKER) 9.8 mg/dL 8.4-10.2 (test code = 697) EGFR (BEAKER) (test 15 mL/min/1.73 ESTIMA ANDREZ GFR IS code = 1092) sq m NOT ACCURATE CREATININE CLEARANCE IN PREDICTING GLOMERULAR FILTRATION RATE . ESTIMATED GFR I S NOT APPLICABLE FOR DIALYSIS PATIEN TS. TROPONIN [id number] 18:18:00 Test Item Value Reference Range Interpretation Comments TROPONIN I (BEAKER) (test code = 0.07 ng/mL 0.00-0.03 H 397) Troponin I (TnI) levels must be interpreted [...] (CK)[id number] 18:12:00 Test Item Value Reference Range Interpretation Comments CREATINE KINASE TOTAL (PASCALEAKER) (test 566 U/L 29-200 H code = 380) POCT-GLUCOSE [id number] 17:31:00 Test Item Value Reference Range Interpretation Comments POC-GLUCOSE METER 249 mg/dL 70-110 H TESTED AT [place] [id number] ([facility]) (test code = [place] 1538) [address] U/S, RENAL, [id number] 16:18:00Reason for exam:->AKIFINAL REPORT RENAL ULTRASOUND HISTORY: [...] MDReport Verified Date/Time: 04/24/2018 16:18:43 Reading Location: [facility] [id number] [facility] Reading Room POCT- GLUCOSE [id number] 15:05:00 Test Item Value Reference Range Interpretation Comments POC-GLUCOSE METER 391 mg/dL 70-110 H TESTED AT [facility] [address] ([facility]) (test code = [place] 1538) [address] LACTIC ACID, VENOUS, WHOLE [id number] 11:35:00 Test Item Value Reference Range Interpretation Comments LACTATE BLOOD VENOUS 1.3 mmol/L 0.5-2.2 Specime n slightly (2) (BEAKER) (test hemolyzed code = 3662) RAPID DRUG SCREEN, [id number] 08:50:00 Test Item Value Reference Range Interpretation Comments BARBITURATE URINE (BEAKER) (test Negative Negative code = 725) BENZODIAZEPINE SCREEN URINE (BEAKER) Negative Negative (test code = 726) COCAINE (METAB.) SCREEN (BEAKER) Negative Negative (test code = 1164) METHADONE SCREEN (BEAKER) (test code Negative Negative = 1436) OPIATE SCREEN URINE (BEAKER) (test Negative Negative code = 734) CANNABINOID SCREEN URINE (BEAKER) Negative Negative (test code = 727) AMPH/METHAMPH SCREEN (BEAKER) (test Negative Negative code = 1438) PHENCYCLIDINE SCREEN URINE (BEAKER) Negative Negative (test code = 608) OXYCODONE SCREEN URINE (BEAKER) Negative Negative (test code = 2761) DRUG CUTOFF CONC.Cocaine 300 ng/mL Cannabinoid 50 ng/mL Benzodiazepine 200 ng/mLBarbiturate 200 ng/mLPhencyclidine 25 ng/mLOpiate 300 ng/mLMethadone 300 ng/mLAmphetamine/ 1000 ng/mL MethamphetamineOxycodone 300 ng/mLThis assay provides an unconfirmed qualitative test result for the clinical management of patients in emergency situations. Chain of custody not maintained. Some [id number] medications, as well as adulterants, may cause inaccurate results. Clinical correlation should be applied. A more comprehensive drug screen or confirmation of a detected drug may be performed upon request.SODIUM, RANDOM [id number] 08:44:00 Test Item Value Reference Range Interpretation Comments SODIUM URINE (BEAKER) (test code = 23 meq/L 243) Reference Range: No NormalsCREATININE, RANDOM [id number] 08:43:00 Test Item Value Reference Range Interpretation Comments CREATININE URINE (BEAKER) (test 95.4 mg/dL code = 375) Reference Range: No NormalsPOCT-GLUCOSE [id number] 08:01:00 Test Item Value Reference Range Interpretation Comments POC-GLUCOSE METER 496 mg/dL 70-110 HH TESTED AT [facility] 6720 (BEAKER) (test code = AUDREY [place]URO 1538) [id number] URIC [id number] 08:01:00 Test Item Value Reference Range Interpretation Comments URIC ACID (BEAKER) (test code = 5.2 mg/dL 2.6-7.2 773) POCT-GLUCOSE [id number] 07:32:00 Test Item Value Reference Range Interpretation Comments POC-GLUCOSE METER 480 mg/dL 70-110 HH TESTED AT [facility] 6720 (BEAKER) (test code = [place] 1538) [address] URINALYSIS W/ [id number] 07:30:00 Test Item Value Reference Range Interpretation Comments COLOR (BEAKER) (test code = Yellow 470) CLARITY (BEAKER) (test code = Hazy 469) SPECIFIC GRAVITY UA (BEAKER) 1.024 1.001-1.035 (test code = 468) PH UA (BEAKER) (test code = 6.5 5.0-8.0 467) PROTEIN UA (BEAKER) (test code >600 mg/dL Negative A = 464) GLUCOSE UA (BEAKER) (test code >1000 mg/dL Negative A = 365) KETONES UA (BEAKER) (test code 20 mg/dL Negative A = 371) BILIRUBIN UA (BEAKER) (test Negative Negative code = 462) BLOOD UA (BEAKER) (test code = Moderate Negative A 461) NITRITE UA (BEAKER) (test code Negative Negative = 465) LEUKOCYTE ESTERASE UA (BEAKER) Negative Negative (test code = 466) UROBILINOGEN UA (BEAKER) (test 0.2 mg/dL 0.2-1.0 code = 463) RBC UA (BEAKER) (test code = 2 /HPF 519) WBC UA (BEAKER) (test code = 8 /HPF 520) BACTERIA (BEAKER) (test code = Many 517) MUCUS (BEAKER) (test code = Rare 1574) SQUAMOUS EPITHELIAL (BEAKER) 6 /HPF (test code = 516) HYALINE CASTS (BEAKER) (test 15 /LPF code = 514) GRANULAR CASTS (BEAKER) (test 4 /LPF code = 515) SOURCE(BEAKER) (test code = Urine, Voided 5899) TROPONIN [id number] 07:29:00 Test Item Value Reference Range Interpretation Comments TROPONIN I (BEAKER) (test code = 0.06 ng/mL 0.00-0.03 H 397) Troponin I (TnI) levels must be interpreted [...] acute neurological disease, and persistent tachyarrhythmia. SCREEN, [id number] 07:17:00 Test Item Value Reference Range Interpretation Comments TEST URINE (BEAKER) (test Negative code = 583) CBC W/PLT COUNT & AUTO [id number] 07:05:00 Test Item Value Reference Range Interpretation Comments WHITE BLOOD CELL COUNT (BEAKER) 11.7 K/ L 3.5-10.5 H (test code = 775) RED BLOOD CELL COUNT (BEAKER) 2.78 M/ L 3.93-5.22 L (test code = 761) HEMOGLOBIN (BEAKER) (test code = 8.3 GM/DL 11.2-15.7 L 410) HEMATOCRIT (BEAKER) (test code = 25.1 % 34.1-44.9 L 411) MEAN CORPUSCULAR VOLUME (BEAKER) 90.3 fL 79.4-94.8 (test code = 753) MEAN CORPUSCULAR HEMOGLOBIN 29.9 pg 25.6-32.2 (BEAKER) (test code = 751) MEAN CORPUSCULAR HEMOGLOBIN CONC 33.1 GM/DL 32.2-35.5 (BEAKER) (test code = 752) RED CELL DISTRIBUTION WIDTH 15.3 % 11.7-14.4 H (BEAKER) (test code = 412) PLATELET COUNT (BEAKER) (test 208 K/CU MM 150-450 code = 756) MEAN PLATELET VOLUME (BEAKER) 13.3 fL 9.4-12.3 H (test code = 754) NUCLEATED RED BLOOD CELLS 0 /100 WBC 0-0 (BEAKER) (test code = 413) NEUTROPHILS RELATIVE PERCENT 94 % (BEAKER) (test code = 429) LYMPHOCYTES RELATIVE PERCENT 5 % (BEAKER) (test code = 430) MONOCYTES RELATIVE PERCENT 0 % (BEAKER) (test code = 431) EOSINOPHILS RELATIVE PERCENT 0 % (BEAKER) (test code = 432) BASOPHILS RELATIVE PERCENT 0 % (BEAKER) (test code = 437) NEUTROPHILS ABSOLUTE COUNT 10.99 K/ L 1.56-6.13 H (BEAKER) (test code = 670) LYMPHOCYTES ABSOLUTE COUNT 0.56 K/ L 1.18-3.74 L (BEAKER) (test code = 414) MONOCYTES ABSOLUTE COUNT (BEAKER) 0.04 K/ L 0.24-0.36 L (test code = 415) EOSINOPHILS ABSOLUTE COUNT 0.00 K/ L 0.04-0.36 L (BEAKER) (test code = 416) BASOPHILS ABSOLUTE COUNT (BEAKER) 0.01 K/ L 0.01-0.08 (test code = 417) IMMATURE GRANULOCYTES-RELATIVE 1 % 0-1 PERCENT (BEAKER) (test code = 2801) COMPREHENSIVE METABOLIC [id number] 03:08:00 Test Item Value Reference Range Interpretation Comments TOTAL PROTEIN 5.4 gm/dL 6.0-8.3 L (BEAKER) (test code = 770) ALBUMIN (BEAKER) 2.1 g/dL 3.5-5.0 L (test code = 1145) ALKALINE PHOSPHATASE 111 U/L 40-150 (BEAKER) (test code = 346) BILIRUBIN TOTAL 0.5 mg/dL 0.2-1.2 (BEAKER) (test code = 377) SODIUM (BEAKER) (test 139 meq/L 136-145 code = 381) POTASSIUM (BEAKER) 2.9 meq/L 3.5-5.1 L (test code = 379) CHLORIDE (BEAKER) 108 meq/L 98-107 H (test code = 382) CO2 (BEAKER) (test 22 meq/L 22-29 code = 355) BLOOD UREA NITROGEN 29 mg/dL 7-21 H (BEAKER) (test code = 354) CREATININE (BEAKER) 3.07 mg/dL 0.57-1.25 H (test code = 358) GLUCOSE RANDOM 300 mg/dL 70-105 H (BEAKER) (test code = 652) CALCIUM (BEAKER) 10.7 mg/dL 8.4-10.2 H (test code = 697) AST (SGOT) (BEAKER) 89 U/L 5-34 H (test code = 353) ALT (SGPT) (BEAKER) 62 U/L 6-55 H (test code = 347) EGFR (BEAKER) (test 16 mL/min/1.73 ESTIMA ANDREZ GFR IS code = 1092) sq m NOT ACCURATE CREATININE CLEARANCE IN PREDICTING GLOMERULAR FILTRATION RATE . ESTIMATED GFR I S NOT APPLICABLE FOR DIALYSIS PATIEN TS. TSH/FREE T4 IF [id number] 02:49:00 Test Item Value Reference Range Interpretation Comments THYROID STIMULATING HORMONE 1.32 uIU/mL 0.35-4.94 (BEAKER) (test code = 772) [id number] 02:37:00 Test Item Value Reference Range Interpretation Comments MAGNESIUM (BEAKER) (test code = 1.6 mg/dL 1.6-2.6 627) CREATINE KINASE (CK)2018-04-24 02:37:00 Test Item Value Reference Range Interpretation Comments CREATINE KINASE TOTAL (BEAKER) (test 1983 U/L 29-200 H code = 380) CBC W/PLT COUNT & AUTO [id number] 01:03:00 Test Item Value Reference Range Interpretation Comments WHITE BLOOD CELL COUNT (BEAKER) 12.5 K/ L 3.5-10.5 H (test code = 775) RED BLOOD CELL COUNT (BEAKER) 3.18 M/ L 3.93-5.22 L (test code = 761) HEMOGLOBIN (BEAKER) (test code = 9.4 GM/DL 11.2-15.7 L 410) HEMATOCRIT (BEAKER) (test code = 28.4 % 34.1-44.9 L 411) MEAN CORPUSCULAR VOLUME (BEAKER) 89.3 fL 79.4-94.8 (test code = 753) MEAN CORPUSCULAR HEMOGLOBIN 29.6 pg 25.6-32.2 (BEAKER) (test code = 751) MEAN CORPUSCULAR HEMOGLOBIN CONC 33.1 GM/DL 32.2-35.5 (BEAKER) (test code = 752) RED CELL DISTRIBUTION WIDTH 15.1 % 11.7-14.4 H (BEAKER) (test code = 412) PLATELET COUNT (BEAKER) (test 216 K/CU MM 150-450 code = 756) MEAN PLATELET VOLUME (BEAKER) 13.0 fL 9.4-12.3 H (test code = 754) NUCLEATED RED BLOOD CELLS 0 /100 WBC 0-0 (BEAKER) (test code = 413) NEUTROPHILS RELATIVE PERCENT 95 % (BEAKER) (test code = 429) LYMPHOCYTES RELATIVE PERCENT 3 % (BEAKER) (test code = 430) MONOCYTES RELATIVE PERCENT 1 % (BEAKER) (test code = 431) EOSINOPHILS RELATIVE PERCENT 0 % (BEAKER) (test code = 432) BASOPHILS RELATIVE PERCENT 0 % (BEAKER) (test code = 437) NEUTROPHILS ABSOLUTE COUNT 11.90 K/ L 1.56-6.13 H (BEAKER) (test code = 670) LYMPHOCYTES ABSOLUTE COUNT 0.43 K/ L 1.18-3.74 L (BEAKER) (test code = 414) MONOCYTES ABSOLUTE COUNT (BEAKER) 0.08 K/ L 0.24-0.36 L (test code = 415) EOSINOPHILS ABSOLUTE COUNT 0.00 K/ L 0.04-0.36 L (BEAKER) (test code = 416) BASOPHILS ABSOLUTE COUNT (BEAKER) 0.02 K/ L 0.01-0.08 (test code = 417) IMMATURE GRANULOCYTES-RELATIVE 1 % 0-1 PERCENT (BEAKER) (test code = 2801) RAD, CHEST, 1 VIEW, NON [id number] 23:44:00Reason for exam:->Syncope, rhabdomyolysisIs the patient ?->UnknownShould [...] No focal pulmonary consolidation. Signed: Shereen Sawant MDReport Verified Date/Time: 04/23/2018 23:44:17 Reading Location: [address] Reading Room
--- NOTE | 2021-09-25 20:26 | P.HP ---
Certification for Inpatient Patient admitted to: Inpatient With expected LOS: >2 Midnights Patient will require the following post-hospital care: None Practitioner: I am a practitioner with admitting privileges, knowledge of patient current condition, hospital course, and medical plan of care. Services: Services provided to patient in accordance with Admission requirements found in Title 42 Section 412.3 of the Code of Federal Regulations Patient History Date of Service: 09/25/21 Reason for admission: New onset A. fib, NSTEMI History of Present Illness: 46-year-old female with history of ESRD on HD, chronic diastolic congestive heart failure, hypertension, insulin-dependent diabetes was at dialysis earlier today when she developed chest pain and palpitations she was brought to the emergency department and outside hospital for evaluation found to be in A. fib RVR which was new onset for her. Her labs at the outside hospital were significant for elevated high-sensitivity troponin 470.2. She was given a dose of IV Cardizem for her A. fib RVR as well as Lovenox her rate has improved but she is persistently in A. fib. She was transferred to our facility for further evaluation and management of new onset A. fib, elevated troponin. Allergies shellfish derived Allergy (Mild, Verified 05/31/18 22:10) Itching Home Medications: Albuterol Inhaler [Ventolin Inhaler*] 2 puff IH Q6HP PRN 05/31/18 Bumetanide [Bumex] 1 tab PO BID 05/31/18 Ergocalciferol (Vitamin D2) [Vitamin D2] 1 cap PO EVERY 7TH DAY 05/31/18 Folic Acid/Multivits-Min [Adult Multivitamin Gummies] 0.8 mg PO DAILY 05/31/18 Hydralazine [Apresoline*] 50 mg PO BID 05/31/18 Insulin Glargine Human [Lantus*] 10 units SQ BEDTIME 05/31/18 Insulin Lispro [Humalog] 5 units SQ TID* 05/31/18 Isosorbide Mononitrate [Isosorbide Mononitrate ER] 1 tab PO DAILY 05/31/18 Metoprolol Tartrate 1 tab PO BID 05/31/18 Mometasone Furoate [Asmanex] 50 mcg IH BID 05/31/18 NIFEdipine [Nifedipine ER] 1 tab PO BID 05/31/18 Pantoprazole [Protonix Tab*] 1 tab PO DAILY 05/31/18 Sevelamer Carbonate [Renvela*] 1 tab PO TID 05/31/18 Calcitrol [Rocaltrol*] 0.5 mcg PO DAILY cap 06/11/18 Spironolactone [Aldactone*] 50 mg PO BID tab 06/11/18 - Past Medical/Surgical History Diabetic: Yes -: Diabetes mellitus type 2insulin-dependent -: Seizures -: Stroke -: Prev seizure 2 yrs ago -: Asthma -: PE 12/2015 -: ESRD on HD -: Hyperlipidemia -: Chronic diastolic congestive heart failure -: Tubal ligation -: c section x 2 Psychosocial/ Personal History: Patient lives at home with her boyfriend - Family History Mother -: Hypertension - Social History Smoking Status: Former smoker Alcohol use: Yes CD- Drugs: No Caffeine use: Yes Place of Residence: Home Review of Systems 10-point ROS is otherwise unremarkable General: Malaise Cardiovascular: Chest Pain, Palpitations Physical Examination - Physical Exam General: Alert, In no apparent distress, Oriented x3 HEENT: Atraumatic, PERRLA, Mucous membr. moist/pink, EOMI, Sclerae nonicteric Neck: Supple, 2+ carotid pulse no bruit, No LAD, Without JVD or thyroid abnormality Respiratory: Diminished, Crackles/rales Cardiovascular: No edema, Normal S1 S2, Irregular heart rate/rhythm (A. fib, rate controlled) Capillary refill: <2 Seconds Gastrointestinal: Normal bowel sounds, No tenderness Musculoskeletal: No tenderness Integumentary: No rashes Neurological: Normal speech, Normal strength at 5/5 x4 extr, Normal tone, Normal affect Lymphatics: No axilla or inguinal lymphadenopathy Assessment and Plan - Plan Assessment: New onset A. fib NSTEMI Chronic diastolic congestive heart failure ESRD on HD Diabetes mellitus type 2insulin-dependent Hypertension Plan: New onset A. fib: Monitor on telemetry, case was discussed with cardiology will increase carvedilol from 3.125- to 6.25 p.o. twice daily. Rate is currently controlled we will cover with Lovenox for now will likely need anticoagulation with Eliquis/Xarelto. Echocardiogram pending. NSTEMI: Monitor on telemetry, trend troponins, patient did experience some pain when she was having rapid ventricular response but after rate was controlled her pain is significant improved. Suspect demand ischemia. Appreciate further input from cardiology. Chronic diastolic congestive heart failure: Cardiology/nephrology consult in place continue medications volume management with dialysis. Continue Lasix. ESRD on HD: Nephrology consulted Diabetes mellitus type 2insulin-dependent: Continue long-acting insulin, sliding scale. Hypertension: Home medications continued. Carvedilol increased. DVT PPX: Full dose Lovenox Code status: Full Discharge Plan: Home Plan to discharge in: 48 Hours - Advance Directives Does patient have a Living Will: No Does patient have a Durable POA for Healthcare: No - Code Status/Comfort Care Code Status Assessed: Yes (Full code) Critical Care: No Time Spent Managing Pts Care (In Minutes): 70
[2021-09-25] MEDS: LOSARTAN POTASSIUM 50 MG TABLET PO SCH (21:33)
[2021-09-25] MEDS: carvediloL 6.25 MG TAB PO SCH (21:33)
[2021-09-25] MEDS: INSULIN -REGULAR HUMAN 50 UNIT/0.5 ML ML SQ SCH (21:33)
[2021-09-25] MEDS: AMLODIPINE 10 MG TAB PO SCH (21:33)
[2021-09-25] MEDS: ATORVASTATIN 40 MG TAB PO SCH (21:33)
[2021-09-25 21:57] VITALS: BMI 40.0
[2021-09-26] MEDS ORDERED: ALBUTEROL INHALER 60 PUFF/8 GM IH PRN (04:41)
[2021-09-26 06:32] LABS: Absolute Lymphocytes (CBC) 1.6 K/uL (0.7-4.9); Lymphocytes % 20.3 % (15.3-44.8); MCV 92.2 fL (80-100); RBC Red Blood Cell Count 2.93 M/uL (3.86-4.86)
[2021-09-26 07:00] LABS: AST/SGOT 8 U/L (15-37); Albumin 2.6 g/dL (3.4-5.0); Alkaline Phosphatase 80 U/L (45-117); BUN Blood Urea Nitrogen 42 mg/dL (7-18); Bicarbonate 29 mmol/L (21-32); Bilirubin Total 0.3 mg/dL (0.2-1.0); Glomerular Filtration Rate 7 ml/min (=/>90); Glucose Level 320 mg/dL (74-106); Potassium 4.3 mmol/L (3.5-5.1); Protein, Total 6.8 g/dL (6.4-8.2); Sodium Level 133 mmol/L (136-145); Thyroid Stimulating Hormone 0.752 uIU/mL (0.360-3.740)
[2021-09-26 07:03] LABS: ALT/SGPT < 10 U/L (12-78)
[2021-09-26 07:05] LABS: Troponin High Sensitivity 600.4 pg/mL (<58.9)
[2021-09-26] MEDS ORDERED: FUROSEMIDE 40 MG TABLET PO SCH (09:00)
[2021-09-26] MEDS: LOSARTAN POTASSIUM 50 MG TABLET PO SCH ×2 (09:07→19:50)
[2021-09-26] MEDS: INSULIN -REGULAR HUMAN 50 UNIT/0.5 ML ML SQ SCH ×4 (09:07→19:52)
[2021-09-26] MEDS: carvediloL 6.25 MG TAB PO SCH ×2 (09:07→19:51)
[2021-09-26] MEDS: LORATADINE 10 MG TAB PO SCH (09:07)
[2021-09-26] MEDS: FUROSEMIDE 40 MG TABLET PO SCH ×2 (09:07→19:49)
[2021-09-26] MEDS: AMLODIPINE 10 MG TAB PO SCH ×2 (09:08→19:51)
[2021-09-26] MEDS: Enoxaparin 120 MG/0.8 ML SYR SQ SCH (09:08)
[2021-09-26] MEDS: INSULIN GLARGINE 100 UNIT/ML SQ SCH (09:08)
[2021-09-26] MEDS: MONTELUKAST 5 MG CHEWABLE TAB PO SCH (09:08)
--- NOTE | 2021-09-26 12:40 | P.CNS ---
Date of Consult: 09/26/21 Reason for Consult: ESRD, management of dialysis and volume status Chief Complaint: New onset A. fib, NSTEMI History of Present Illness: 46-year-old female with history of ESRD on HD since 2019, chronic diastolic congestive heart failure per reports but pt questions this as she recalls being told at one point that she did not have CHF, chronic hypertension, chronic insulin-dependent diabetes who reports developing some indigestion and heart burn symptoms Mon, non specific weakness Tues extending into Wed. She felt like skipping dialysis Wed but was talked into it by her boyfriend but 2h into HD developed acute, moderately severe CP so treatment was terminated and she was sent to ER by EMS. She was found to have Afib with RVR and was given IV Cardizem and placed on Lovenox. She is currently in NSR per reports and denies current CP or dyspnea. Allergies shellfish derived Allergy (Mild, Verified 05/31/18 22:10) Itching Home Medications: Albuterol Inhaler [Ventolin Inhaler*] 2 puff IH Q6HP PRN 05/31/18 Insulin Glargine Human [Lantus*] 25 units SQ BREAKFAST 05/31/18 Insulin Lispro [Humalog] 5 units SQ TID* 05/31/18 Amlodipine [Norvasc] 10 mg PO BID 09/25/21 Calcitrol [Rocaltrol*] 0.5 mcg PO M,W,F 09/25/21 Furosemide [Lasix] 40 mg PO BID 09/25/21 Loratadine [Claritin] 10 mg PO DAILY 09/25/21 Montelukast [Singulair] 5 mg PO DAILY 09/25/21 - Past Medical/Surgical History Diabetic: Yes -: Diabetes mellitus type 2insulin-dependent -: Seizures -: Stroke -: Prev seizure 2 yrs ago -: Asthma -: PE 12/2015 -: ESRD on HD -: Hyperlipidemia -: Chronic diastolic congestive heart failure -: Tubal ligation -: c section x 2 Psychosocial/ Personal History: Patient lives at home with her boyfriend - Family History Mother Medical History: Hypertension - Social History Alcohol use: Yes CD- Drugs: No Caffeine use: Yes Place of Residence: Home Review of Systems General: Weakness Eyes: Unremarkable ENT: Unremarkable Respiratory: Unremarkable Cardiovascular: Chest Pain, Palpitations Gastrointestinal: Unremarkable Genitourinary: Unremarkable Musculoskeletal: Unremarkable Integumentary: Unremarkable Neurological: Unremarkable (Reports a remote hx of CVA) Lymphatics: Unremarkable Physical Examination Temp Pulse Resp BP Pulse Ox 97.4 F 72 18 142/58 H 98 09/26/21 12:00 09/26/21 12:00 09/26/21 12:00 09/26/21 12:00 09/26/21 12:00 General: Alert, Oriented x3, Cooperative HEENT: Atraumatic, Abnormal EOM Neck: Supple Respiratory: Clear to auscultation bilaterally, Normal air movement Cardiovascular: No edema, Normal pulses, Regular rate/rhythm Gastrointestinal: Soft and benign (Obese) Musculoskeletal: No swelling, No erythema Integumentary: No breakdown Neurological: Normal gait, Normal affect Laboratory Data (last 24 hrs) 09/26/21 06:20: Sodium 133 L, Potassium 4.3, BUN 42 H, Creatinine 7.03 H*, Glucose 320 H, Total Bilirubin 0.3, AST 8 L, ALT < 10 L, Alkaline Phosphatase 80 09/26/21 06:20: WBC 8.0, Hgb 9.2 L, Hct 27.0 L, Plt Count 199 Conclusions/Impression: 1. ESRD 2. New onset Afib with RVR 3. NSTEMI 4. Type II DM with hyperglycemia 5. Chronic HTN 5. Anemia 2nd to CKD +/- other 1. Pt had abbreviated HD session yesterday but her metab profile and volume status appear acceptable so will plan for HD tmrw per OP MWF schedule. 2. Awaiting Cardiology recommendations regarding recent Afib and troponin leak, will need an ischemia eval most likely. Dose Lovenox anticoagulation for reduced CrCl. Pt's CHADS-VASc score is > 2 so will need anticoagulation but will again defer to Cardiology to manage. 3. Accelerated HTN, on multiple agents, does not appear hypervolemic, will monitor closely. Target BP < 140/90 4. Defer to hospitalist team to adjust basal/bolus Insulin dose to target improved glycemic profile. Thank you for the referral, Louis Steward MD, FREDO
--- NOTE | 2021-09-26 14:30 | ECHO ---
HEIGHT: 5 ft 5 in WEIGHT: 240 lb 12.8 oz DATE OF STUDY: 09/26/[address]: Saturnino Tamez NP 2-DIMENSIONAL: YES M.MODE: YES DOPPLER: YES COLOR FLOW: YES TDS: PORTABLE: DEFINITY: BUBBLE STUDY: DIAGNOSIS: NEW ATRIAL FIBRILLATION/ NON ST ELEVATION MYOCARDIAL INFARCTION CARDIAC HISTORY: CATHERIZATION: SURGERY: PROSTHETIC VALVE: PACEMAKER: MEASUREMENTS (cm) DIASTOLIC (NORMALS) SYSTOLIC (NORMALS) IVSd 1.3 (0.6-1.2) LA Diam 4.0 (1.9-4.0) LVEF 62% LVIDd 4.9 (3.5-5.7) LVIDs 3.2 (2.0-3.5) %FS 34% LVPWd 1.5 (0.6-1.2) Ao Diam 2.9 (2.0-3.7) 2 DIMENSIONAL ASSESSMENT: RIGHT ATRIUM: NORMAL LEFT ATRIUM: ENLARGED RIGHT VENTRICLE: NORMAL LEFT VENTRICLE: MILD LEFT VENTRICULAR HYPERTROPHY TRICUSPID VALVE: MILD TRICUSPID REGURGITATION MITRAL VALVE: MITRAL ANNULAR CALCIFICATION WITH MILD MITRAL REGURGITATION PULMONIC VALVE: MILD PULMONIC INSUFFICIECNY AORTIC VALVE: THICKENED, NO AORTIC STENOSIS, MILD AORTIC INSUFFICIENCY PERICARDIAL EFFUSION: SMALL AORTIC ROOT: NORMAL LEFT VENTRICULAR WALL MOTION: NORMAL DOPPLER/COLOR FLOW: SEE BELOW COMMENTS: NORMAL LEFT VENTRICULAR EJECTION FRACTION 60-65%. NORMAL WALL MOTION. MILD TRICUSPID REGURGITATION, MILD PULMONIC INSUFFICIENCY, MILD MITRAL REGURGITATION, MILD AORTIC INSUFFICIENCY. LEFT ATRIAL ENLARGEMENT. SMALL PERICARDIAL EFFUSION. TECHNOLOGIST: ALLEN LLOYD
--- NOTE | 2021-09-26 18:12 | P.PN ---
Date of Service: 09/26/21 Subjective: breathing comfortably on room air no longer having chest pain / no pressure feels ok had chest pressure / not feeling well the last few days ROS: 10 point ROS as noted above, otherwise negative Physical exam GEN: Alert, oriented, NAD HEENT: Normal conjunctiva, sclera anicteric CV: Regular rate and rhythm, no edema Pulm: Nonlabored respirations on room air ABD: Soft, nontender, nondistended Neuro: Normal speech, normal affect Problem List New onset A. fib NSTEMI Chronic diastolic congestive heart failure ESRD on HD Diabetes mellitus type 2insulin-dependent Hypertension s/p cardizem x1 at outside ER increased coreg here converted to sinus rhythm echo ordered cardiology consulted, CHADSVASC >2; defer to cardiology regarding anticoagulation patient reports 2 significant prior bleeds, both related to specific complications, not spontaneous, and both have been corrected now patient states she refuses to take coumadin troponin leak, chest pressure; cardiology plans for cath tomorrow nephrology consulted, HD tomorrow adjust insulin, sliding scale Code status: Full Dispo: home, 1-2 days Time Spent Managing Pts Care (In Minutes): 35
[2021-09-26] MEDS: ATORVASTATIN 40 MG TAB PO SCH (19:50)
--- NOTE | 2021-09-26 20:15 | CON ---
Date of Consultation: 09/26/2021 Reason For Consultation: Elevated troponin and chest pain. History Of Present Illness: This is a 46-year-old female with history of end-stage renal disease, on hemodialysis, diabetes, CVA, seizure, asthma, dyslipidemia, presented with chest pressure. She was in dialysis and the pain radiated to her left upper extremity and lasted for few minutes and resolved . The patient also developed a new onset atrial fibrillation with rapid ventricular response and she converted to sinus rhythm on her own. Denies having any chest pain at the present time. She was co mpletely asymptomatic. Past Medical History: As outlined above in the HPI. Medications: Refer to reconciliation sheet for detailed list. Allergies: NO KNOWN DRUG ALLERGIES. Family History: No premature coronary artery disease or cancer. Social History: She is an ex-smoker. Does not drink or use any drugs. Review of Systems: All systems reviewed and they were negative except for what mentioned in HPI. Past Surgical History: , tubal ligation, and fistula in her left arm. Physical Examination: Vital Signs: Reviewed. Head and Neck: Pupils are equal, reactive to light. Intact eye movements. No JVD. No cervical lym phadenopathy. Neck is supple. Thyroid is not enlarged. Lungs: Clear to auscultation bilaterally. No rhonchi, wheezing, or crackles. No accessory muscle u se. Heart: Regular rate and rhythm. Abdomen: Soft, nontender. Bowel sounds positive. No organomegaly. No masses or hernia. No rigidi ty or rebound. Extremities: No clubbing or cyanosis. Intact pulses. Skin: No rash. Neurologic: Alert, awake, oriented x3. No acute focal deficits appreciated. Investigations: Troponin 691 and then down to 600. Creatinine 7.0 and white blood count is 8, and h emoglobin 9.2. Assessment And Recommendations: 1.Non-ST elevation myocardial infarction with multiple risk factors. Keep her n.p.o. past midnight. Plan for coronary angiogram in the morning and please obtain echocardiogram if not already done. 2.Hypertension. Blood pressure is elevated. Resume all home medications and adjust further as need ed. 3.Dyslipidemia. Continue high potency statin with Lipitor 40 mg at bedtime. SR/MODL Voice ID: [id number] Report ID: [id number]
[2021-09-26 21:04] LABS: Protime INR 1.03
[2021-09-27 04:03] LABS: Absolute Lymphocytes (CBC) 1.3 K/uL (0.7-4.9); Hematocrit 26.6 % (36.0-45.0); Lymphocytes % 15.3 % (15.3-44.8); MCV 92.5 fL (80-100); RBC Red Blood Cell Count 2.88 M/uL (3.86-4.86)
[2021-09-27 04:18] LABS: AST/SGOT 7 U/L (15-37); Albumin 2.5 g/dL (3.4-5.0); Alkaline Phosphatase 80 U/L (45-117); BUN Blood Urea Nitrogen 51 mg/dL (7-18); Bicarbonate 28 mmol/L (21-32); Bilirubin Total 0.3 mg/dL (0.2-1.0); Glomerular Filtration Rate 5 ml/min (=/>90); Glucose Level 287 mg/dL (74-106); Protein, Total 6.8 g/dL (6.4-8.2); Sodium Level 136 mmol/L (136-145)
[2021-09-27 04:19] LABS: ALT/SGPT < 10 U/L (12-78)
[2021-09-27] MEDS ORDERED: HEPA 1000U/500MLS 1,000 UNIT/500 ML BAG IV ONE ×2 (06:30→06:41)
[2021-09-27] MEDS ORDERED: ASPIRIN 325 MG TAB ONE (06:31)
[2021-09-27] MEDS ORDERED: VERAPAMIL HCL 10 MG/4 ML VIAL IV ONE (06:31)
[2021-09-27] MEDS ORDERED: HEPARIN 5000 UNIT/ML 1 ML VIAL ONE (06:31)
[2021-09-27] MEDS ORDERED: CLOPIDOGREL 75 MG TABLET ONE (06:31)
[2021-09-27] MEDS ORDERED: MIDAZOLAM HCL 2 MG/2 ML INJ ONE (06:31)
[2021-09-27] MEDS ORDERED: FENTANYL CITR 100 MCG/2 ML ONE (06:31)
[2021-09-27] MEDS ORDERED: HEPARIN 10,000 UNIT/10 ML VIAL IV ONE (06:32)
[2021-09-27] MEDS ORDERED: TICAGRELOR 90 MG TABLET PO ONE (06:32)
--- NOTE | 2021-09-27 07:14 | P.PN ---
Date of Service: 09/27/21 Subjective: underwent cardiac cath this morning no chest pain, no palpitations feeling ok, due for dialysis today ROS: 10 point ROS as noted above, otherwise negative Physical exam GEN: Alert, oriented, NAD HEENT: Normal conjunctiva, sclera anicteric CV: Regular rate and rhythm, no edema Pulm: Nonlabored respirations on room air ABD: Soft, nontender, nondistended Neuro: Normal speech, normal affect Problem List New onset A. fib NSTEMI Chronic diastolic congestive heart failure ESRD on HD Diabetes mellitus type 2insulin-dependent Hypertension s/p cardizem x1 at outside ER increased coreg here converted to sinus rhythm echo with dilated left atrium cardiology consulted, CHADSVASC >2; defer to cardiology regarding anticoagulation patient reports 2 significant prior bleeds, both related to specific complic ations, not spontaneous, and both have been corrected now patient states she refuses to take coumadin troponin leak, chest pressure; s/p cath: moderate CAD, not significant enough for stenting nephrology consulted, HD today adjust insulin, sliding scale Code status: Full Dispo: home, after dialysis Time Spent Managing Pts Care (In Minutes): 30
[2021-09-27] MEDS ORDERED: NA CHLORIDE 0.9% 500 ML ONE (07:20)
[2021-09-27] MEDS: INSULIN -REGULAR HUMAN 50 UNIT/0.5 ML ML SQ SCH ×4 (07:30→21:00)
[2021-09-27] MEDS ORDERED: METHYLPREDNISOLONE 125 MG INJ ONE (07:45)
[2021-09-27] MEDS ORDERED: DIPHENHYDRAMINE 50 MG/ML VIAL ONE (07:45)
[2021-09-27] MEDS: LORATADINE 10 MG TAB PO SCH (09:00)
[2021-09-27] MEDS: Enoxaparin 120 MG/0.8 ML SYR SQ SCH (09:00)
[2021-09-27] MEDS: MONTELUKAST 5 MG CHEWABLE TAB PO SCH (09:00)
[2021-09-27] MEDS: INSULIN GLARGINE 100 UNIT/ML SQ SCH (09:00)
[2021-09-27] MEDS ORDERED: CALCITROL 0.25 MCG CAP PO SCH (09:00)
[2021-09-27] MEDS ORDERED: EPOETIN ALFA-EPBX 10,000 UNIT/ML VIAL SQ ONE (09:07)
[2021-09-27] MEDS ORDERED: NA CHLORIDE 0.9% 1,000 ML IV PRN (09:15)
[2021-09-27] MEDS ORDERED: MANNITOL 25% 12.5 GM/50 ML VIAL IV PRN (09:15)
[2021-09-27 09:51] VITALS: O2SAT 96
[2021-09-27] MEDS ORDERED: ALBUMIN HUMAN 25% 50 ML IV SCH (10:00)
[2021-09-27] MEDS: AMLODIPINE 10 MG TAB PO SCH ×2 (10:26→21:43)
[2021-09-27] MEDS: carvediloL 6.25 MG TAB PO SCH ×2 (10:26→21:43)
[2021-09-27] MEDS: FUROSEMIDE 40 MG TABLET PO SCH ×2 (10:27→21:43)
--- NOTE | 2021-09-27 12:21 | P.PN ---
Subjective Date of Service: 09/27/21 Chief Complaint: New onset A. fib, NSTEMI S/p [facility], reports of non obstructive CAD, discussed case with Dr. Arroyo and with pt, plan for HD this afternoon. No acute complaints voiced by pt Physical Examination - Vital Signs Temperature: 98 F Blood Pressure: 200/84 Pulse: 73 Respirations: 18 Pulse Ox (%): 94 - Physical Exam General: Alert, In no apparent distress HEENT: Atraumatic, Normocephalic, EOMI Neck: Supple Respiratory: Normal air movement Cardiovascular: Normal pulses, Regular rate/rhythm Gastrointestinal: Soft and benign, No tenderness Musculoskeletal: No swelling Integumentary: No rashes, No erythema Neurological: Normal speech, Normal affect - Studies Laboratory Data (last 24 hrs) 09/27/21 03:28: Sodium 136, Potassium 4.0, BUN 51 H, Creatinine 8.53 H* D, Glucose 287 H, Total Bilirubin 0.3, AST 7 L, ALT < 10 L, Alkaline Phosphatase 80 09/27/21 03:28: WBC 8.5, Hgb 8.9 L, Hct 26.6 L, Plt Count 204 09/26/21 20:09: PT 11.3, INR 1.03, APTT 47.8 H Assessment And Plan - Plan 1. ESRD 2. New onset Afib with RVR 3. NSTEMI 4. Type II DM with hyperglycemia 5. Chronic HTN 5. Anemia 2nd to CKD +/- other 1. Pt had abbreviated HD session Wed but her metab profile and volume status appear acceptable, HD this afternoon per OP MWF schedule. 2. Awaiting Cardiology recommendations regarding recent Afib and troponin leak, s/p ischemia eval. Pt's CHADS-VASc score is > 2 so will need anticoagulation, if Eliquis used, dose at 2.5 mg BID. 3. Accelerated HTN, on multiple agents, does not appear hypervolemic, but will challenge and target UF of 3.5L. Will add PO hydralazine to her regimen. Target BP < 140/90 4. Defer to hospitalist team to adjust basal/bolus Insulin dose to target improved glycemic profile. Louis Steward MD, [facility]ED[facility]
[2021-09-27] MEDS: HYDRALAZINE HCL 25 MG TABLET PO SCH ×2 (13:45→21:43)
--- NOTE | 2021-09-27 18:57 | OP ---
Date of Procedure: 09/27/2021 Surgeon: JEFF SIM Procedure Performed: Selective coronary angiogram. Indications: Non-ST elevation myocardial infarction. Access: Right radial artery 6-Filipino closed with TR band. Complications: None. Estimated Blood Loss: Bleeding less than 20 mL. Anesthesia: Total sedation time was 25 minutes, used fentanyl and Versed. Description Of Procedure: After risks, benefits, alternatives were explained, the patient agreed to the procedure and signed informed consent. The patient was brought into the cardiac catheterization laboratory, prepped and draped in usual sterile fashion. Then I accessed right radial artery using p [employer] micropuncture kit, placed 6-Filipino Slender sheath and then took a 5-Filipino Banks 4.0 cathete r into aortic root and engaged left main and right coronary artery and took standard views and then r emoved the catheter and sheath, placed TR band with good hemostasis. Findings: 1.Left main, large and normal. 2.LAD, large vessel, normal proximal segment and in the mid segment there is diffuse 50% stenosis, t hen becomes normal distally. Normal diagonal branch as well. 3.Left circumflex. It is a [id number] sized vessel with proximal 60% stenosis and the OM1 br anch has about 50% stenosis. 4.RCA, very large and dominant and normal. Conclusion: Moderate coronary artery disease. Recommendation: Plan for exercise nuclear stress test versus FFR of the LAD and the left circumflex, which is not available today to be done, so we will plan for discharge and outpatient stress test. SR/MODL Voice ID: [id number] Report ID: [id number]
[2021-09-27] MEDS ORDERED: HYDRALAZINE HCL 20 MG/ML VIAL IV ONE (19:44)
[2021-09-27 21:39] VITALS: BP 161/69; TEMP 98
[2021-09-27] MEDS: ATORVASTATIN 40 MG TAB PO SCH (21:43)
[2021-09-27] MEDS: LOSARTAN POTASSIUM 50 MG TABLET PO SCH (21:43)
--- NOTE | 2021-09-27 22:04 | P.DS ---
Admission Date: 09/25/21 Discharge Date: 09/27/21 Disposition: ROUTINE DISCHARGE Discharge Condition: GOOD Reason for Admission: New onset A. fib, NSTEMI Consultations: Cardiology - Dr. Cobian Brief History of Present Illness: 46yo F, PMH: ESRD on HD, chronic diastolic CHF, HTN, IDDM2 Presented to outside hospital's ED after episode of chest pain and palpitations during dialysis. She was found to be in Afib with RVR, which is new for her. Workup significant for elevated troponin: 470. She was given IV cardizem x1, lovenox, and rate was controlled in 90s-105. She was transferred to our facility for further evaluation and management of new onset afib and elevated troponin. Hospital Course: Problem List New onset A. fib NSTEMI Chronic diastolic congestive heart failure ESRD on HD Diabetes mellitus type 2insulin-dependent Hypertension Patient was found to be in afib. She was treated here with carvedilol and converted back to sinus rhythm. Cardiology was consulted. Patient underwent cardiac catheterization on 09/27 which revealed mild-moderate coronary artery disease, not significant enough for stenting. Cardiology recommended to continue medical therapy and was stable for discharge home on carvedilol and eliquis. Nephrology was consulted and patient underwent hemodialysis. She was noted to have elevated blood pressure and further anti-hypertensive medications were added to her medication regimen and will be continued on discharge. Recommend monitoring blood pressure at home. Follow up with Cardiology in 1-2 weeks. To discuss stress test as outpatient in near future. Follow up with Nephrology Continue dialysis as scheduled. Vital Signs/Physical Exam: Temp Pulse Resp BP Pulse Ox 98.0 F 76 18 161/69 H 95 09/27/21 21:38 09/27/21 21:43 09/27/21 16:00 09/27/21 21:43 09/27/21 21:38 Physical exam GEN: Alert, oriented, NAD CV: Regular rate and rhythm, no edema Pulm: Nonlabored respirations on room air ABD: Soft, nontender, nondistended Neuro: Normal speech, normal affect Laboratory Data at Discharge: WBC 8.5 K/uL (4.3-10.9) 09/27/21 03:28 Hgb 8.9 g/dL (12.0-15.0) L 09/27/21 03:28 Hct 26.6 % (36.0-45.0) L 09/27/21 03:28 Plt Count 204 K/uL (152-406) 09/27/21 03:28 PT 11.3 SECONDS (9.5-12.5) 09/26/21 20:09 INR 1.03 09/26/21 20:09 APTT 47.8 SECONDS (24.3-36.9) H 09/26/21 20:09 Sodium 136 mmol/L (136-145) 09/27/21 03:28 Potassium 4.0 mmol/L (3.5-5.1) 09/27/21 03:28 BUN 51 mg/dL (7-18) H 09/27/21 03:28 Creatinine 8.53 mg/dL (0.55-1.3) H* D 09/27/21 03:28 Glucose 287 mg/dL (74-106) H 09/27/21 03:28 Total Bilirubin 0.3 mg/dL (0.2-1.0) 09/27/21 03:28 AST 7 U/L (15-37) L 09/27/21 03:28 ALT < 10 U/L (12-78) L 09/27/21 03:28 Alkaline Phosphatase 80 U/L (45-117) 09/27/21 03:28 Home Medications: Albuterol Inhaler [Ventolin Inhaler*] 2 puff IH Q6HP PRN 05/31/18 Insulin Glargine Human [Lantus*] 25 units SQ BREAKFAST 05/31/18 Insulin Lispro [Humalog] 5 units SQ TID* 05/31/18 Amlodipine [Norvasc*] 10 mg PO BID 09/25/21 Calcitrol [Rocaltrol*] 0.5 mcg PO M,W,F 09/25/21 Furosemide [Lasix*] 40 mg PO BID 09/25/21 Loratadine [Claritin*] 10 mg PO DAILY 09/25/21 Montelukast [Singulair*] 5 mg PO DAILY 09/25/21 Apixaban [Eliquis] 2.5 mg PO BID 30 Days #60 tablet 09/27/21 Hydralazine [Apresoline*] 25 mg PO BID 30 Days #60 tab 09/27/21 Losartan Potassium [Cozaar*] 50 mg PO BID 30 Days #60 tablet 09/27/21 carvediloL [Coreg*] 6.25 mg PO BID 30 Days #60 tab 09/27/21 New Medications: Hydralazine [Apresoline*] 25 mg PO BID 30 Days #60 tab carvediloL [Coreg*] 6.25 mg PO BID 30 Days #60 tab Losartan Potassium [Cozaar*] 50 mg PO BID 30 Days #60 tablet Apixaban [Eliquis] 2.5 mg PO BID 30 Days #60 tablet Physician Discharge Instructions: Patient was found to be in afib. She was treated here with carvedilol and converted back to sinus rhythm. Cardiology was consulted. Patient underwent cardiac catheterization on 09/27 which revealed mild-moderate coronary artery disease, not significant enough for stenting. Cardiology recommended to continue medical therapy and was stable for discharge home on carvedilol and eliquis. Nephrology was consulted and patient underwent hemodialysis. She was noted to have elevated blood pressure and further anti-hypertensive medications were added to her medication regimen and will be continued on discharge. Recommend monitoring blood pressure at home. Follow up with Cardiology in 1-2 weeks. To discuss stress test as outpatient in near future. Follow up with Nephrology Continue dialysis as scheduled. Diet: Renal Activity: Ad doug Followup: Beau Yanes DO [ACTIVE - CAN ADMIT] - Gunnar Cobian MD [ACTIVE - CAN ADMIT] - Time spent managing pt's care (in minutes): 45
--- NOTE | 2021-09-28 21:31 | PN ---
Date of Progress Note: 09/27/2021 Subjective: Seen at bedside. She has no further chest pain. No nausea, vomiting, diarrhea. No fev er. No skin rash. All other systems were reviewed and they were negative. She is status post coron gloria angiogram, found to have moderate stenosis of her LAD and left circumflex arteries, but no FFR wa s available to evaluate the need for PCI. Physical Examination: Vital Signs: Reviewed. Head and Neck: Pupils are equal and reactive to light. Intact eye movements. No JVD. No cervical lymphadenopathy. Lungs: Clear to auscultation bilaterally. No rhonchi, rales, or crackles. No accessory muscle use. Heart: Regular rate and rhythm. No extra sounds. Abdomen: Soft, nontender. Bowel sounds positive. No organomegaly. No masses or hernia. No rigidi ty or rebound. Extremities: No clubbing or cyanosis. Intact pulses. Skin: No rashes. Neurologic: Alert, awake, oriented x3. No acute focal deficits appreciated. Investigations: Labs were reviewed. Assessment And Recommendations: 1.Elevated troponin. There is no acute occlusion of her coronary arteries or significant stenosis. She has moderate coronary artery disease that needs to be tested further, which can be arranged for as an outpatient, either with exercise nuclear stress test or FFR of the LAD and the circumflex. Onc e the patient is released, we will follow her up at the office and plan the above. 2.End-stage renal disease, on hemodialysis. 3.Hypertension. Her blood pressure still elevated and increase the Coreg to 12.5 twice a day. SR/MODL Voice ID: [id number] Report ID: [id number]
== END 2021-09-27 23:30 | disposition home or self-care (01) | DRG 280 ==
LOC: 4TH 19:45
PROVIDERS: ADMIT Hospitalist; ATTEND Hospitalist
PROC: B2011ZZ Plain Radiography of Multiple Coronary Arteries using Low Osmolar Contrast (ICD-10-PCS; principal; 2021-09-27)
PROC: 5A1D70Z Performance of Urinary Filtration, Intermittent, Less than 6 Hours Per Day (ICD-10-PCS; 2021-09-27)
DX: I21.4 Non-ST elevation (NSTEMI) myocardial infarction (principal); N18.6 End stage renal disease; I13.2 Hypertensive heart and chronic kidney disease with heart failure and with stage 5 chronic kidney disease, or end stage renal disease; I50.32 Chronic diastolic (congestive) heart failure; E11.22 Type 2 diabetes mellitus with diabetic chronic kidney disease; E11.65 Type 2 diabetes mellitus with hyperglycemia; I48.91 Unspecified atrial fibrillation; E78.5 Hyperlipidemia, unspecified; D63.1 Anemia in chronic kidney disease; Z99.2 Dependence on renal dialysis; Z91.013 Allergy to seafood; Z79.4 Long term (current) use of insulin; Z86.73 Personal history of transient ischemic attack (TIA), and cerebral infarction without residual deficits; I25.10 Atherosclerotic heart disease of native coronary artery without angina pectoris; Z87.891 Personal history of nicotine dependence
CPT/HCPCS: 36415; 80053; 82947; 84439; 84443; 84484; 85025; 85610; 85730; 90935; 93306; 93454; C1893; J0360; J1200; J1644; J1650; J1815; J2250; J2930; J3010; J7040; Q5106; Q9966

== ENCOUNTER 2022-04-21 03:56 | Emergency (ER) | payer OTHER ==
--- OUTSIDE RECORDS SUMMARY | 2022-04-21 04:04 | XMS REPORT | Continuity of Care Document ---
:1975 Author Organization [facility] t Address [address] [place] [address] Care Team Providers Name Role Phone Raegan Barrett MD Primary Care Physician [phone] ROBERT SILVA Attending Clinician Unavailable [place] TIMMONS Attending Clinician Unavailable Doctor Unassigned, Shiner Attending Clinician Unavailable ANIYAH CORDON Attending Clinician Unavailable SOFIYA VALADEZ Attending Clinician Unavailable KYLER ABDALLA Attending Clinician Unavailable Kyler Abdalla MD Attending Clinician Maryana Attending Clinician Unavailable Raegan Barrett MD Attending Clinician [phone] MD TAVO PRINGLE Attending Clinician Unavailable TAVO PRINGLE Attending Clinician Unavailable Emmanuel HANSON, Aniyah Attending Clinician RAEGAN BARRETT Attending Clinician Unavailable Nurse, [facility] Attending Clinician Unavailable Sofiya Valadez MD Attending Clinician Sharon Mayers MD Attending Clinician Alyson GARCIAS, Megan Ocasio Attending Clinician Unavailable NAY MILNER Attending Clinician Unavailable CHICHO BUI Attending Clinician Unavailable KAREN YIN Attending Clinician Unavailable REMEDIOS MORAES Attending Clinician Unavailable CHIRAG WALKER Attending Clinician Unavailable ANNA LO Attending Clinician Unavailable MD ANNA LO Attending Clinician Unavailable NICOLETTE YUN Attending Clinician Unavailable SHARON MAYERS Attending Clinician Unavailable EDUARDO JOHNSTON Attending Clinician Unavailable KALLIE DEGROOT Attending Clinician Unavailable EDUARDO MCQUEEN Attending Clinician Unavailable EDUARDO MCQUEEN Attending Clinician Unavailable THOMAS NINO Attending Clinician Unavailable ROBERT SILVA Admitting Clinician Unavailable INDIANA TIMMONS Admitting Clinician Unavailable Maryana Admitting Clinician Unavailable MD TAVO PRINGLE Admitting Clinician Unavailable ANNA LO Admitting Clinician Unavailable MD ANNA LO Admitting Clinician Unavailable NICOLETTE YUN Admitting Clinician Unavailable EDUARDO JOHNSTON Admitting Clinician Unavailable THOMAS NINO Admitting Clinician Unavailable Payers Payer Name Policy Type Policy Number Effective Date Expiration Date S kayleighspeedy [facility] WELLMED [id number] 2020 00:00:00 [facility] DUAL [id number] 2020 COMP HMO D SNP 00:00:00 [facility] [id number] 2014 00:00:00 MEDICARE PART A \\T\\ [id number] 2011 B 00:00:00 [place] [id number] 2018 00:00:00 [facility] - [id number] 2020 [facility] 00:00:00 (MEDICARE REPLACEMENT/ADVANTA GE - HMO) [facility] - [id number] DUAL COMPLETE - DUAL ELIGIBLE - SNP (MEDICARE-MEDICAID REPLACEMENT HMO) Problems Condition Condition Condition Status Onset Resolution Last Treating Co mments Source Name Details Category Date Date Treatment Clinician Date Obesity Obesity Problem Active 2020-04 [place] 0-27 da 00:00: Medical 00 Group Essential Essential Problem Active 2020-04 Mat [...] Active U nivers 8-02 ity of 00:00: [place] [facility] ESRD ESRD Disease Active Overview: Univer s needing needing 29 Formattin ity o f dialysis dialysis 00:00: g of this Jez as 00 note Medical might be Branch different from the original. Added automatic ally from request for surgery [id number] Troponin I Troponin I Disease Active U nivers above above 8-11 [place] of reference [place] 00:[place] range range 00 [place] COVID-19 COVID-19 Disease Active Unive rs virus virus 8-11 ity of infection infection 00:00[place] Acute on Acute on Disease Active Unive rs chronic chronic 8-11 ity of respirator [place] failure 00 [facility] with with Branch hypoxia hypoxia Pleural Pleural Disease Active Univers effusion effusion 8-10 ity of on right on right 00:00: [place] 00 [facility] NSVT NSVT Disease Active Univers (nonsustai (nonsustai 7-21 it y of kayla kayla 00:00: [place] ventricula ventricula 00 Me dical r r Branch tachycardi tachycardi a) a) ESRD on ESRD on Disease Active 2020-0 Overview: Meth leonardo hemodialys hemodialys 5-[address] is is 00:00: g of this Hospita 00 note l might be different from the original. Added automatic ally from request for surgery [id number] Benign Benign Disease Active Univers hypertensi hypertensi 08-02 it y of ve heart ve heart 00:00: [place] and kidney and kidney 00 Me dical disease disease Branch with heart with heart failure failure and with and with chronic chronic kidney kidney disease disease stage I stage I through through stage IV, stage IV, or or unspecifie unspecifie d(404.11) d(404.11) Hypoalbumi Hypoalbumi Disease Active U nivers nemia nemia 08-02 ity of 00:00: [place] 00 Medical Branch Hypokalemi Hypokalemi Disease Active U nivers a a 08-02 ity of 00:00: [place] 00 Medical Branch Localized Localized Disease Active Uni vers edema due edema due 08-02 ity of to fluid to fluid 00:00: [place] overload overload 00 Medica l Branch Nephrogeno Nephrogeno Disease Active U nivers [facility] 08-02 ity of proteinuri proteinuri 00:[place] a a 00 Medical [place] PD PD Disease Active Overview: Univer s catheter catheter - Formattin ity of dysfunctio dysfunctio 00:00: g of this [place] n, initial n, initial 00 note Me dical encounter encounter might be Br anch different from the original. Added automatic ally from request for surgery [id number] ESRD (end ESRD (end Disease Active Uni vers stage stage 3-18 ity of renal renal 00:00: [place] disease) disease) 00 Medica l on on Branch dialysis dialysis ANASARCA, ANASARCA, Diagnosis Active 2018-042019-02-21 Charu CKD CKD Active 04-06 21:43:00 l 02/04/2019 04:06: Valdo jim [facility] 00 [place] CHF CHF Diagnosis Active 2018-042019-02-04 Mem oria Active 04-06 08:53:00 l 02/04/2019 04:06: Valdo jim [facility] 00 [place] Menorrhagi Menorrhagi Disease Active U nivers a with a with 6-19 ity of irregular irregular 00:00: [place] s cycle cycle 00 Medical Branch JOSEFA on JOSEFA on Disease Active Univers CPAP CPAP 5-04 ity of 00:00: [place] [facility] Anemia Anemia Disease Active Univers 5-02 ity of 00:00: [place] [facility] Acute on Acute on Disease Active Unive rs chronic chronic 5- ity of diastolic diastolic 00:00[place] CH[place] CHF 00 Medical (congestiv (congestiv Br anch e heart e heart failure), failure), NYHA class NYHA class 3 3 SHWETHA (acute SHWETHA (acute Disease Active [facility]) injury) 00:00: Medical 00 Center Syncope Syncope Disease Active [facility] History of History of Disease Active U nivers pulmonary pulmonary 5- ity of embolism embolism 00:00: [place] [facility] Essential Essential Disease Active Uni vers hypertensi hypertensi 2-21 it y of on, benign on, benign 00:[place] Type 2 Type 2 Disease Active 2014-04 Univers diabetes diabetes 1-17 ity of mellitus mellitus 00:00: [place] with with 00 Medical microalbum microalbum Br anch inuria, inuria, with with long-term long-term current current use of use of insulin insulin PVD PVD Disease Active 2014-04 Univers (periphera (periphera 1-17 it y of l vascular l vascular 00:00: [place] disease) disease) 00 Medica l with with Branch claudicati claudicati on on Vitamin D Vitamin D Disease Active 2014-04 Uni vers deficiency deficiency 1-17 it y of 00:00: [place] [facility] Albuminuri Albuminuri Disease Active 2014-04 U nivers a a 1-17 ity of 00:00: [place] [facility] Abnormal Abnormal Disease Active 2014-04 Overview: Un juan antonio uterine uterine -17 Formattin ity o f bleeding bleeding 00:00: g of this Jez as 00 note Medical might be Branch different from the original. 09/22/18 - EMB benign HLD HLD Disease Active Univers (hyperlipi (hyperlipi 9-15 it y of demia) demia) 00:00: [place] 00 Medical Branch Metabolic Metabolic Disease Active Uni vers syndrome X syndrome X 9-15 it y of 00:00: [place] 00 Medical Branch GENERALIZE GENERALIZ Diagnosis Active 2019-02-21 Charu D EDEMA ED EDEMA 21:43:00 l [facility]IC Diagnosis Active 2019-02-21 [facility] KIDNEY KIDNEY 21:43:00 l DISEASE, DISEASE, Valdo n UNSPECIFIE UNSPECIFIE D D Active [facility] ACUTE ON ACUTE ON Diagnosis Active 2019-02-04 [facility] CHRONIC CHRONIC 08:53:00 l DIASTOLIC DIASTOLIC Herm david (CONGESTIV (CONGESTIV E) E) Active [facility] Allergies, Adverse Reactions, Alerts Allergy Allergy Status Severity Reaction(s) Onset Inactive Treating Comm ents Source Name Type Date Date Clinician Sulfa Propensi Active Itching 2019- Univers (Sulfona ty to 6-04 ity of mide adverse 00:00: [place] Antibiot reaction 00 Medica l ics) s Branch SULFA Drug Active Low ITCHING Univers (SULFONA Class 6- ity of MIDE 00:00: [place] ANTIBIOT 00 Medical ICS) Branch Shellfis Propensi Active Itching Metho di h ty to 6 st Derived adverse 00:00: Hospita reaction 00 l s to drug shellfis DA [facility] derived 00:00: [address] [facility] shellfis FA Active [facility] West derived 00:00: [address] Iodine Propensi Active Itching Univers And ty to 11-01 ity of Iodide adverse 00:00: [place] Containi reaction 00 Medica l ng s Branch Products IODINE DRUG Active ITCHING Univers INGREDI 11-01 ity of 00:00: [place] 00 Medical Branch IODINE Drug Active ITCHING Univers AND Class 11-01 ity of IODIDE 00:00: [place] CONTAINI 00 Medical NG Branch PRODUCTS Iodine Propensi Active Itching Univers ty to 11-01 ity of adverse 00:00: [place] reaction 00 Medical s Branch SHELLFIS Allergy Active Itching [place] [facility] to da DERIVED substanc Medical e Group Family History Family Member Diagnosis Comments Start Date Stop Date Source Natural father Hypertension [facility] Natural mother Depression [facility] Social History Social Habit Start Date Stop Date Quantity Comments Source History of Cigarette Smoker Universi ty of tobacco use [place] [facility] History SDVT [facility] r Drinks History SDVT [facility] Alcohol Binge Medical Megan ter Exposure to 2021-08-05 2021-08-15 Not sure University of SARS-CoV-2 00:00:00 09:46:00 [facility] (event) Branch Cigarettes smoked 2020-02-06 2020-02-06 Univers ity of current (pack per 00:00:00 00:00:00 [facility] ) - Reported Branch Cigarette 2020-02-06 2020-02-06 University of pack-years 00:00:00 00:00:00 [facility] Tobacco Comment 2020-02-06 2020-02-06 quit in 1995, Univer sity of 00:00:00 00:00:00 restarted 2014, [place] Med ical then quit again. Branch smoked on and off since 14 years old Alcohol Comment 2019-09-08 2019-09-[address] 00:00:00 00:00:00 Hospital Education 2018-12-17 2018-12-17 21 University of 00:00:00 00:00:00 [place] [facility] History [facility] 2018-12-17 2018-12-17 5 University o f Financial 00:00:00 00:00:00 [place] [facility] History [facility] Food 2018-12-17 2018-12-17 1 Univers ity of Worry 00:00:00 00:00:00 [place] [facility] History [facility] Food 2018-12-17 2018-12-17 1 Univers ity of Scarcity 00:00:00 00:00:00 [place] [facility] History [facility] 2018-12-17 2018-12-17 2 University o f Transport Med 00:00:00 00:00:00 [place] Medic al Branch History [facility] 2018-12-17 2018-12-17 2 University o f Transport Non-Med 00:00:00 00:00:00 [facility] Branch Tobacco use and 2018-04-24 2018-04-[address] Deanne kes exposure 00:00:00 00:00:00 Medical Center Alcohol intake 2018-04-24 2018-04-24 Current non-drinker [facility] 00:00:00 00:00:00 of alcohol [facility] (finding) History [facility] 2018-04-24 2018-04-24 1 YADIRA Brunner Alcohol Frequency 00:00:00 00:00:00 Medical Center Sex [birth year] At [birth year] Sabianism 00:00:00 00:00:00 Hospital Smoking Status Start Date Stop Date Source Ex-smoker 2020-02-06 00:00:00 2020-02-06 00:00:00 [facility] Medical Branch Medications Ordered Filled Start Stop Current Ordering Indication Dosage Frequency Signature Comments Components Source Medication Medication Date Date Medication? Clinician (SIG) Name Name medroxyPROG Yes [id number] 150mg Univers ESTERone 8-12 ity of (DEPO-PROVE 15:15: [place] RA) syringe 00 Medical 150 mg Branch medroxyPROG Yes [id number] 150mg Univers ESTERone 8-12 ity of (DEPO-PROVE 15:15: [place] RA) syringe 00 Medical 150 mg Branch medroxyPROG Yes [id number] 150mg Univers ESTERone 8-12 ity of (DEPO-PROVE 15:15: [place] RA) syringe 00 Medical 150 mg Branch medroxyPROG 0 Yes [id number] 150mg Univers ESTERone 8-12 ity of (DEPO-PROVE 15:15: [place] RA) syringe 00 Medical 150 mg Branch montelukast Yes 10mg Take 10 mg Univers 10 mg 5-28 by mouth ity of tablet 00:00: daily. [place] [facility] montelukast Yes 10mg Take 10 mg Univers 10 mg 5-28 by mouth ity of tablet 00:00: daily. [place] [facility] montelukast Yes 10mg Take 10 mg Univers 10 mg 5-28 by mouth ity of tablet 00:00: daily. [place] [facility] montelukast Yes 10mg Take 10 mg Univers 10 mg 5-28 by mouth ity of tablet 00:00: daily. [place] [facility] insulin Yes [id number] INJECT 10 U nivers lispro 2-25 TO 15 ity of (HUMALOG 00:00: UNITS [place] KWIKPEN 00 SUBCUTANEO Medica l INSULIN) USLY THREE Branc h 100 unit/mL TIMES pen DAILY injector NEEDED IF SUGARS ARE OVER 200 Insulin Yes [id number] Take 10 Uni vers Glargine 2-25 units once ity o f (LANTUS 00:00: daily if OSTAR blood Medical U-100 sugars are Branch INSULIN) over 180 100 unit/mL in (3 mL) morning. injection insulin Yes [id number] INJECT 10 U nivers lispro 2-25 TO 15 ity of (HUMALOG 00:00: UNITS KWIKPEN 00 SUBCUTANEO Medica l INSULIN) USLY THREE Branc h 100 unit/mL TIMES pen DAILY injector NEEDED IF SUGARS ARE OVER 200 Insulin Yes [id number] Take 10 Uni vers Glargine 2-25 units once ity o f (LANTUS 00:00: daily if OST blood Medical U-100 sugars are Branch INSULIN) over 180 100 unit/mL in (3 mL) morning. injection insulin Yes [id number] INJECT 10 U nivers lispro 2-25 TO 15 ity of (HUMALOG 00:00: UNITS [place] KWIKPEN 00 SUBCUTANEO Medica l INSULIN) USLY THREE Branc h 100 unit/mL TIMES pen DAILY injector NEEDED IF SUGARS ARE OVER 200 Insulin Yes [id number] Take 10 Uni vers Glargine 2-25 units once ity o f (LANTUS 00:00: daily if OST blood Medical U-100 sugars are Branch INSULIN) over 180 100 unit/mL in (3 mL) morning. injection insulin Yes [id number] INJECT 10 U nivers lispro 2-25 TO 15 ity of (HUMALOG 00:00: UNITS KWIKPEN 00 SUBCUTANEO Medica l INSULIN) USLY THREE Branc h 100 unit/mL TIMES pen DAILY injector NEEDED IF SUGARS ARE OVER 200 Insulin Yes [id number] Take 10 Uni vers Glargine 2-25 units once ity o f (LANTUS 00:00: daily if SOLOST blood Medical U-100 sugars are Branch INSULIN) over 180 100 unit/mL in (3 mL) morning. injection traMADoL 50 Yes [id number] 50mg Take 1 Univ ers mg tablet 2-12 tablet by ity o f 00:00: mouth [place] 00 every 6 Medical (six) Branch hours as needed for Pain (scale 7-10) for up to 5 doses. Indication s: acute pain traMADoL 50 2020-0 Yes [id number] 50mg Take 1 Univ ers mg tablet 2-12 tablet by ity o f 00:00: mouth [place] 00 every 6 Medical (six) Branch hours as needed for Pain (scale 7-10) for up to 5 doses. Indication s: acute pain traMADoL 50 2020-0 Yes [id number] 50mg Take 1 Univ ers mg tablet 2-12 tablet by ity o f 00:00: mouth [place] 00 every 6 Medical (six) Branch hours as needed for Pain (scale 7-10) for up to 5 doses. Indication s: acute pain traMADoL 50 2020-0 Yes [id number] 50mg Take 1 Univ ers mg tablet 2-12 tablet by ity o f 00:00: mouth [place] 00 every 6 Medical (six) Branch hours as needed for Pain (scale 7-10) for up to 5 doses. Indication s: acute pain flash 2019-04 Yes [id number] 1{each} 1 Each 2 U nivers glucose 1-02 (two) ity of scanning 00:00: times [place] reader 00 daily Medical (FREESTYLE before Branch NAEEM 2 breakfast READER) and Misc dinner. flash 2019-04 Yes [id number] 1{each} 1 Each 2 U nivers glucose 1-02 (two) ity of scanning 00:00: times [place] reader 00 daily Medical (FREESTYLE before Branch NAEEM 2 breakfast READER) and Misc dinner. flash 2019-04 Yes [id number] 1{each} 1 Each 2 U nivers glucose 1-02 (two) ity of scanning 00:00: times [place] reader 00 daily Medical (FREESTYLE before Branch NAEEM 2 breakfast READER) and Misc dinner. flash 2019-04 Yes [id number] 1{each} 1 Each 2 U nivers glucose 1-02 (two) ity of scanning 00:00: times [place] reader 00 daily Medical (FREESTYLE before Branch NAEEM 2 breakfast READER) and Misc dinner. albuterol Yes 2{puff} Q6H Inhale 2 M ethodi (PROAIR 8-[address] HFA) 90 10:41: every 6 Hospita mcg/actuati 58 (six) l on inhaler hours as needed for wheezing. insulin 2020-0 Yes QD Inject Methodi glargine,hu 8-[address] m.rec.anlog 10:41: skin Hospit a (TOUJEO 58 daily. l SOLOSTAR U-300 INSULIN SUBQ) medroxyPROG 2020-0 Yes 150mg Q90D Inject 150 Methodi ESTERone 8-[address] (DEPO-PROVE 10:41: the Hospit a RA) 150 58 shoulder, l mg/mL thigh, or injection buttocks every 3 (three) months. ramipriL 2020-0 Yes 5mg QD Take 5 mg Meth leonardo (ALTACE) 5 8-[address] MG capsule 10:41: daily. Hospi ta 58 l budesonide- 2020-0 Yes 2{puff} Q.5D Inhale 2 Methodi formoteroL 8-[address] (SYMBICORT) 10:41: (two) Hospi ta 160-4.5 58 times a l mcg/actuati day. on inhaler insulin 2020-0 Yes [id number] Inject Me thodi ASPART 8-[id number] (NovoLOG) 10:41: 3D skin 3 Hospit a 100 unit/mL 58 (three) l injection times a day before meals. cholecalcif 2020-0 Yes [id number] QD Take 2,000 Methodi ninoska, 8-[address] vitamin D3, 10:41: mouth Hospi ta (Vitamin 58 daily. l D3) 50 mcg (2,000 unit) capsule capsule ergocalcife 2020-0 Yes [id number] Q7D Take Meth leonardo rol 8-[address] 50,[address] (VITAMIN 10:41: Units by Hospi ta D2) 50,000 58 mouth once l unit a week. capsule ipratropium 2020-0 Yes [id number] .5mg Inhale 2.5 Univers 0.02 % 8-03 mL every 6 ity of nebulizer 00:00: (six) [place] solution 00 hours as Medical needed for Branch Wheezing or Shortness of Breath. ipratropium 2020-0 Yes [id number] .5mg Inhale 2.5 Univers 0.02 % 8-03 mL every 6 ity of nebulizer 00:00: (six) [place] solution 00 hours as Medical needed for Branch Wheezing or Shortness of Breath. ipratropium 2020-0 Yes [id number] .5mg Inhale 2.5 Univers 0.02 % 8-03 mL every 6 ity of nebulizer 00:00: (six) [place] solution 00 hours as Medical needed for Branch Wheezing or Shortness of Breath. ipratropium 2020-0 Yes [id number] .5mg Inhale 2.5 Univers 0.02 % 8-03 [...] tablet 00 Medical Branch HYDROcodone 2020-0 Yes [id number] 1{tbl} Q6H Take 1 M ethodi -acetaminop 6-[address] hen (Hoyt) 00:00: mouth Hospi ta 5-325 mg 00 every 6 l per tablet (six) hours as needed for moderate pain for up to 5 days .acute pain. Max Daily Amount: 4 tablets atorvastati 2020-0 Yes [id number] 40mg Take 1 Univers n 40 mg 4-01 tablet by ity of tablet 00:00: mouth [place] 00 daily. Medical Branch atorvastati 2020-0 Yes [id number] 40mg Take 1 Univers n 40 mg 4-01 tablet by ity of tablet 00:00: mouth [place] 00 daily. Medical Branch atorvastati 2020-0 Yes [id number] 40mg Take 1 Univers n 40 mg 4-01 tablet by ity of tablet 00:00: mouth [place] 00 daily. Medical Branch atorvastati 2020-0 Yes [id number] 40mg Take 1 Univers n 40 mg 4-01 tablet by ity of tablet 00:00: mouth 00 daily. Medical Branch atorvastati 2020-0 Yes 40mg QD Take 40 mg Methodi n (LIPITOR) 4-[address] 40 mg 00:00: daily. Hospita tablet 00 l insulin 2020-0 Yes Inject Methodi lispro 3-[address] (HumaLOG 00:00: skin as Hospit a U-100 00 needed. l Insulin) 100 unit/mL injection Insulin 2020-0 Yes [id number] Use 4 Unive rs [place], 1-16 times ity of Disposable, 00:00: daily with [place] (BD INSULIN 00 Levemir Medic al PEN NEEDLE and Branch UF) 31 Humalog gauge x 5/16" Ndle Insulin 2020-0 Yes [id number] Use 4 Unive rs [place], 1-16 times ity of Disposable, 00:00: daily with [place] (BD INSULIN 00 Levemir Medic al PEN NEEDLE and Branch UF) 31 Humalog gauge x 5/16" Ndle Insulin 2020-0 Yes [id number] Use 4 Unive rs [place], 1-16 times ity of Disposable, 00:00: daily with [place] (BD INSULIN 00 Levemir Medic al PEN NEEDLE and Branch UF) 31 Humalog gauge x 5/16" Ndle Insulin 2020-0 Yes [id number] Use 4 Unive rs [place], 1-16 times ity of Disposable, 00:00: daily with [place] (BD INSULIN 00 Levemir Medic al PEN NEEDLE and Branch UF) 31 Humalog gauge x 5/16" Ndle LORazepam 2020-0 Yes TAKE 1 Univer s 0.5 mg 1-08 TABLET BY ity of tablet 00:00: MOUTH EVERY 24 Medical HOURS Branch NEEDED FOR ANXIETY LORazepam 2020-0 Yes TAKE 1 Univer s 0.5 mg 1-08 TABLET BY ity of tablet 00:00: MOUTH EVERY 24 Medical HOURS Branch NEEDED FOR ANXIETY LORazepam 2020-0 Yes TAKE 1 Univer s 0.5 mg 1-08 TABLET BY ity of tablet 00:00: MOUTH EVERY 24 Medical HOURS Branch NEEDED FOR ANXIETY LORazepam 2020-0 Yes TAKE 1 Univer s 0.5 mg 1-08 TABLET BY ity of tablet 00:00: MOUTH [place] 00 EVERY 24 Medical HOURS Branch NEEDED FOR ANXIETY albuterol Yes [id number] 2.5mg Inhale 0.5 Univers 2.5 mg/0.5 9-23 mL every 6 ity of mL 00:00: (six) [place] nebulizer 00 hours as Medica l solution needed for Branc h Wheezing. albuterol Yes [id number] 2.5mg Inhale 0.5 Univers 2.5 mg/0.5 9-23 mL every 6 ity of mL 00:00: (six) [place] nebulizer 00 hours as Medica l solution needed for Branc h Wheezing. albuterol Yes [id number] 2.5mg Inhale 0.5 Univers 2.5 mg/0.5 9-23 mL every 6 ity of mL 00:00: (six) [place] nebulizer 00 hours as Medica l solution needed for Branc h Wheezing. albuterol Yes [id number] 2.5mg Inhale 0.5 Univers 2.5 mg/0.5 9-23 mL every 6 ity of mL 00:00: (six) [place] nebulizer 00 hours as Medica l solution needed for Branc h Wheezing. pantoprazol Yes 40mg QD Take 40 mg Methodi e 4-[address] (PROTONIX) 00:00: daily. Hospi ta 40 MG EC 00 l tablet BUMETanide Yes 2mg Q.5D Take 2 mg Me thodi (BUMEX) 1 3-[address] MG tablet 00:00: (two) Hospita 00 times a l day. 6 mg bid insulin Yes type [address] lispro 1-31 diabetes subcutaneo Lul es (HUMALOG) 01:47: mellitus usly 3 Me dical 100 unit/mL 32 (three) Cente r injection times daily before meals. insulin Yes QD Inject [facility] glargine 1-[facility] (LANTUS) 01:47: usly Medical 100 unit/mL 32 nightly Cente r injection Use as directed . metoprolol Yes hypertensio 100mg Q.5D Take [address] (LOPRESSOR) 1-31 n mg by [facility] 100 MG 01:47: mouth 2 Medical tablet 32 (two) Center times daily. albuterol Yes 2{puff} Inhale [address] HFA 1-31 puffs by [facility] (VENTOLIN 01:47: mouth via Med ical HFA) 90 32 inhaler Center mcg/actuati every 6 on inhaler (six) hours as needed for Wheezing. hydrALAZINE Yes 50mg Take [address] (APRESOLINE 1-31 by mouth Luke s ) 50 MG 01:47: every 6 Medical tablet 32 (six) Center hours. spironolact 0 Yes 25mg Take [address] one 1-31 by mouth. [facility]ukes (ALDACTONE) 01:47: Medica l 25 MG 32 Center tablet mometasone Yes 2{spray [address] (NASONEX) 1-31 } by Nasal [facility] 50 01:47: route. Medical mcg/actuati 32 Center on nasal spray povidone-io Yes Apply [facility] t dine 1-30 affected [facility] (BETADINE) 00:00: area as Medi abner 10 % 00 needed. Center external solution mupirocin Yes Apply [facility] (BACTROBAN) 130 affected Luke s 2 % 00:00: area Medical ointment 00 daily. Center albuterol albuterol No albuterol [place] sulfate HFA [...] Humalog [place] Emmanuel Emmanuel Emmanuel da KwikPen KwikPen KwikPen Medica l (U-100) 100 (U-100) 100 [...] Immunizations Ordered Filled Immunization Date Status Comments Sour e Immunization Name Name HEP B, Adult Dosage 2019-02-16 Completed Unive rsity of 00:00:00 [facility] HEP B, Adult Dosage 2019-02-16 Completed Unive rsity of 00:00:00 [facility] HEP B, Adult Dosage 2019-02-16 Completed Unive rsity of 00:00:00 [facility] HEP B, Adult Dosage 2019-02-16 Completed Unive rsity of 00:00:00 [facility] TDAP 2015-02-20 Completed [facility] 00:00:00 [facility] TDAP 2015-02-20 Completed [facility] 00:00:00 [facility] TDAP 2015-02-20 Completed [place] [facility] [place] of 00:00:00 [facility] Vital Signs Vital Name Observation Time Observation Value Comments Source Body height 2021-08-15 14:56:00 165.1 cm [facility] Body weight 2021-08-15 14:56:00 108.2 kg [facility] BMI 2021-08-15 14:56:00 39.69 kg/m2 [facility] BP Diastolic 2021-06-04 00:00:00 99 mm[Hg] [facility] Height 2021-06-04 00:00:00 66 [in_i] [facility] BMI (Body Mass 2021-06-04 00:00:00 39.2 kg/m2 [facility] BP Systolic 2021-06-04 00:00:00 198 mm[Hg] [facility] Body Weight 2021-06-04 00:00:00 242.9 [lb_av] [facility] BP Diastolic 2021-04-23 00:00:00 108 mm[Hg] [facility] Height 2021-04-23 00:00:00 66 [in_i] [facility] BMI (Body Mass 2021-04-23 00:00:00 39.7 kg/m2 [facility] BP Systolic 2021-04-23 00:00:00 201 mm[Hg] [facility] Body Weight 2021-04-23 00:00:00 246 [lb_av] [facility] BP Diastolic 2021-02-26 00:00:00 92 mm[Hg] [facility] Height 2021-02-26 00:00:00 66 [in_i] [facility] BMI (Body Mass 2021-02-26 00:00:00 42.1 kg/m2 [facility] BP Systolic 2021-02-26 00:00:00 187 mm[Hg] [facility] Body Weight 2021-02-26 00:00:00 260.8 [lb_av] [facility] BP Diastolic 2021-02-12 00:00:00 81 mm[Hg] [facility] Height 2021-02-12 00:00:00 66 [in_i] [facility] BMI (Body Mass 2021-02-12 00:00:00 42 kg/m2 [facility] BP Systolic 2021-02-12 00:00:00 149 mm[Hg] [facility] Body Weight 2021-02-12 00:00:00 260.1 [lb_av] [facility] BP Diastolic 2021-01-29 00:00:00 95 mm[Hg] [facility] Height 2021-01-29 00:00:00 66 [in_i] [facility] BMI (Body Mass 2021-01-29 00:00:00 41.8 kg/m2 [facility] BP Systolic 2021-01-29 00:00:00 209 mm[Hg] [facility] Body Weight 2021-01-29 00:00:00 259 [lb_av] [facility] Procedures Procedure Date / Time Performing Clinician Source Performed EXTERNAL PROVIDER 2021-11-05 05:01:00 Doctor Unassigned, No [facility] [place] REC[facility]DS Name [facility] EXTERNAL PROVIDER 2021-10-01 05:01:00 Doctor Unassigned, No [facility] [place] RECORDS Name Medical [facility] EXTERNAL PROVIDER 2021-08-24 05:01:00 Doctor Unassigned, No [facility] RECORDS Name Medical Branch US, transvaginal 2021-02-12 00:00:00 [facility] Operation on Lung 2019-04-06 00:00:00 [facility] Arteriovenous 2019-04-06 00:00:00 [facility] Anastomosis for Renal Group Dialysis Cataract Surgery Complex 2019-04-06 00:00:00 [facility] Endometrial Ablation 2014-04-06 00:00:00 [facility] Bilateral Tubal Ligation 2001-04-06 00:00:00 [facility] Delivery 2001-04-06 00:00:00 [facility] Plan of Care Planned Activity Planned Date Details Comments Source Future Scheduled 2022-04-09 COVID-19 VACCINE (#1) [facility] Test 08:23:49 [code = COVID-19 VACCINE (#1)] Future Scheduled 2022-04-09 Pneumococcal Vaccine: [facility] Test 08:23:49 Pediatrics (0 to 5 Years) and At-Risk Patients (6 to 64 Years) (1 - PCV) [code = Pneumococcal Vaccine: Pediatrics (0 to 5 Years) and At-Risk Patients (6 to 64 Years) (1 - PCV)] Future Scheduled 2022-04-09 Hepatitis C screening [facility] Test 08:23:49 (procedure) [code = 473898766] Future Scheduled 2022-04-09 Screening for [facility] Test 08:23:49 malignant neoplasm of cervix (procedure) [code = 985154979] Future Scheduled 2022-04-09 BREAST CANCER [facility] Test 08:23:49 SCREENING [code = BREAST CANCER SCREENING] Future Scheduled 2022-04-09 COLONOSCOPY SCREENING [facility] Test 08:23:49 [code = COLONOSCOPY SCREENING] Future Scheduled 2022-04-09 INFLUENZA VACCINE [facility] Test 08:23:49 [code = INFLUENZA VACCINE] Diagnostic Test 2021-06-04 wet mount, vaginal [facility]ago engagement director Medical Pending 00:00:00 [code = wet [place], Group vaginal] Encounters Start End Encounter Admission Attending Care Care Encounter Source Date/Time Date/Time Type Type Clinicians Facility Department ID 2022-04-21 Outpatient [id number] Memoria 04:00:00 [id number] [place] [id number] Outpatient [facility] [id number] [place] 15:28:35 [id number] [facility] 2021-02-03 Emergency [facility] [id number] Univers [facility]:39[facility] Emergency [facility] [id number] Univers 03:43:[facility] 2021-02-03 [facility] [id number] Univers 01:23:44 ROBERT [facility] 2021-02-02 Outpatient Betty[facility] [id number] Univers 20:32:01 ROBERT [facility] 2021-02-01 Emergency [facility] [id number] Univers 16:10:52 [facility] 2021-02-01 Emergency [facility] [id number] Univers 11:39:31 [facility] 2021-02-01 Emergency [facility] [id number] Univers 07:21:24 [facility] 2021-01-31 Outpatient [facility] [id number] Univers 19:05:47 [place] [facility] 2021-01-31 Emergency [facility] [id number] Univers 14:53:52 ity of [facility] 2021-01-17 Outpatient [id number] Memoria 10:14:31 [id number] Bigg [id number] 2020-11-15 Outpatient [id number] Memoria 09:31:58 [id number] Bigg [id number] 2019-02-04 Inpatient U [facility] [id number] [facility] L 07:22:00 2021-11-05 2021-11-05 Orders Doctor ROBERT 1.2.840.114 [id number] Univers 00:00:00 00:00:00 Only Unassigned, CARYN 350.1.13.10 ity of [facility] 4.2.7.2.686 Jez as [phone] [address] 2021-10-01 2021-10-01 Orders Doctor ROBERT Lindquist.2.840.114 [id number] Univers 00:00:00 00:00:00 Only Unassigned, CARYN 350.1.13.10 ity of [facility] 4.2.7.2.686 Jez as [phone] [address] 2021-09-10 2021-09-10 Outpatient R EMMANUEL, [facility] [id number] Univers 13:40:00 13:40:00 ANIYAH bellamy o f [facility] 2021-08-24 2021-08-24 Orders Doctor ROBERT Ni2.840.114 [id number] Univers 00:00:00 00:00:00 Only Unassigned, CARYN 350.1.13.10 ity of [facility] 4.2.7.2.686 Jez as [phone] [address] 2021-08-23 2021-08-23 Outpatient Bettye VALADEZ [facility] [id number] Univers 14:00:00 14:00:00 SOFIYA bellamy [facility] 2021-08-15 2021-08-15 Outpatient Bettye ABDALLA [facility] [id number] Univers 10:00:00 10:05:11 KYLER bellamy [facility] 2021-08-15 2021-08-15 Office [facility] [id number] Univers 10:00:00 10:05:11 Visit [facility] 350.1.13.10 it y of [place] 4.2.7.2.686 Jez as CAROL?BLEA [phone] [address] MEDICAL OFFICE [facility] 2021-06-27 2021-06-27 Outpatient Rutledge_L MMG MMG [id number] [place] 12:41:00 12:41:00 0324 [facility] 2021-06-21 2021-06-21 Outpatient Rutledge_L MMG MMG [id number] [place] 04:20:00 04:20:00 0318 [facility] 2021-06-04 2021-06-04 Moisés Navarreteledge_L MMG [place] - [id number] 022 [place] 00:00:00 00:00:00 Discovery Wiliam 0301 da MD: [address] [place] [phone] , Ph. [phone] 2021-05-10 2021-05-10 Outpatient Rutledge_L MMG MMG [id number] [place] 04:32:00 04:32:00 0204 [facility] 2021-05-07 2021-05-07 Moisés Navarreteledge_[place] - [id number] 022 [place] 00:00:00 00:00:00 Discovery Wiliam 0201 da MD: [address] [place] [phone] , Ph. [phone] 2021-04-26 2021-04-26 Telephone Nena [facility] 1.2.840.114 [id number] Univers 00:00:00 00:00:00 Raegan HAMMER 350.1.13.10 ity of [place] [phone] Ga dical [facility] 231 [facility] 2021-04-23 2021-04-23 Moisés Mijares [facility] [place] [place] - [address]-0 022 [place] 00:00:00 00:00:00 Discovery Wiliam 0118 guadalupe MD: [address] [place] [phone] , Ph. [phone] 2021-03-26 2021-03-26 [facility] [id number] [place] 00:00:00 00:00:00 TAVO [address] 2021-02-27 2021-02-27 Orders Doctor ROBERT 1.2.840.114 [id number] Univers 00:00:00 00:00:00 Only Unassigned, CARYN 350.1.13.10 ity of [place] [facility] 4.2.7.2.686 Jez as [phone] [address] 2021-02-26 2021-02-26 Moisés Mijares [facility] [place] [place] [place] - [address]-1 021 [place] 00:00:00 00:00:00 Discovery Wiliam 1123 guadalupe MD: [address] [place] [phone] , Ph. [phone] 2021-02-15 2021-02-15 Orders Doctor ROBERT 1.2.840.114 [id number] Univers 00:00:00 00:00:00 Only Unassigned, CARYN 350.1.13.10 ity of [facility] 4.2.7.2.686 Jez as [phone] [address] 2021-02-12 2021-02-12 Telephone [facility] 1.2.636.545 [id number] Univers 00:00:00 00:00:00 Aniyah HAMMER 350.1.13.10 ity [facility] [place] [phone] Ga dical NAL 059 [facility] 2021-02-12 2021-02-12 Moisés Mijares [facility] [place] [place] - [address]-5 021 [place] 00:00:00 00:00:00 Discovery Wiliam 1109 guadalupe MD: [address] [place] [phone] , Ph. [phone] 2021-02-07 2021-02-07 Outpatient R [facility] [id number] Univers 09:00:00 09:00:00 [facility] 2021-02-05 2021-02-05 Outpatient R NENA [facility] [id number] Univers 15:00:00 15:00:00 [facility] 2021-01-29 2021-01-29 Moisés Mijares [facility] [place] [place] - [address]-5 021 [place] 00:00:00 00:00:00 Discovery Wiliam 1026 da MD: [address] [place] [phone] , Ph. [phone] 2021-01-24 2021-01-24 Outpatient Maryana [facility] [id number] [place] 10:57:00 10:57:00 1021 guadalupe [facility] 2021-01-17 2021-01-17 Nurse Nurse, [facility] 1.2.840.114 [id number] Univers 10:07:38 10:50:03 Visit Andreal Sofiya Ninfa Hammer 350.1.13.10 [facility] [place] [phone] Ga dical nal 134 [facility] 2021-01-17 2021-01-17 Outpatient R [facility] [id number] Univers 10:00:00 10:00:00 ity [facility] 2021-01-17 2021-01-17 Telephone Sharon Mayers [facility] 1.2.840.114 [id number] Univers 00:00:00 00:00:00 Juice Hammer 350.1.13.10 i ty of [place] [phone] Ga dical nal 134 [facility] 2021-01-17 2021-01-17 [facility] 1.2.840.114 [id number] Univers 00:00:00 00:00:00 Management Sofiya Hammer 350.1.13.10 it[place] of [place] [phone] Ga dical nal 134 [facility] 2020-12-12 2020-12-12 Telephone Alyson Montero 1.2.840.114 [id number] Univers 00:00:00 00:00:00 , Megan Valdez 350.1.13.10 it[place] of [place].2.[place] [phone] [facility] 086 [place] 2020-12-11 2020-12-11 Orders Doctor ROBERT 1.2.840.114 [id number] Univers 00:00:00 00:00:00 Only Unassigned, CARYN 350.1.13.10 it[place] of [place] [facility] 4.2.7.2.686 Jez as [phone] [facility] 009 [place] 2020-12-04 2020-12-04 Telephone [facility] 1.2.840.114 [id number] Univers 00:00:00 00:00:00 Raegan Hammer 350.1.13.10 it[place] of [place] [phone] Ga dical nal 044 [facility] 2020-11-27 2020-11-27 Telephone [facility] 1.2.011.125 [id number] Univers 00:00:00 00:00:00 Aniyah Hammer 350.1.13.10 it[place] of [place] [phone] Ga dical nal 059 [facility] 2020-11-15 2020-11-15 Outpatient R ADUM, [facility] [id number] Univers 10:00:00 10:00:00 SOFIYA ity [facility] 2020-11-15 2020-11-15 Outpatient R [facility] [id number] Univers 09:00:00 09:00:00 ity [facility] 2020-09-18 2020-09-18 Outpatient EMMANUEL, [facility] [id number] Univers 00:00:00 00:00:00 ANIYAH bellamy o [facility] 2020-09-07 2020-09-07 Outpatient R EMMANUEL, [facility] [id number] Univers 13:40:00 14:16:15 ANIYAH bellamy o [facility] 2020-09-07 2020-09-07 Office [facility] 1.2.840.114 [id number] Univers 13:29:04 14:16:15 Visit Aniyah Montoyaton 350.1.13.10 it[place] of [place] [phone] Ga dical nal [address] [place] [address] 2020-09-07 2020-09-07 Office [facility] 1.2.840.114 [id number] Univers 13:29:04 14:16:15 Visit Aniyah HAMMER 350.1.13.10 ity of [place].2.[place] [phone] Ga dical NAL [address] [place] [address] 2020-08-30 2020-08-30 Outpatient R ANDREUM, [facility] [id number] Univers 00:00:00 00:00:00 SOFIYA bellamy [facility] 2020-08-28 2020-08-28 Outpatient R ADUM, [facility] [id number] Univers 10:00:00 10:00:00 SOFIYASCOTT bellamy [facility] 2020-08-24 2020-08-24 Outpatient R ADUM, [facility] [id number] Univers 15:30:00 15:30:00 SOFIYA itchely [facility] 2020-08-23 2020-08-23 Outpatient R ADUM, [facility] [id number] Univers 10:00:00 10:00:00 SOFIYA bellamy [facility] 2020-08-23 2020-08-23 Outpatient R [facility] [id number] Univers 09:00:00 09:00:00 mia [facility] 2020-07-23 2020-07-23 Outpatient R ALF, [facility] [id number] Univers 16:40:00 16:40:00 NAY bellamy [facility] 2020-06-28 2020-06-28 Outpatient R PAUL, [facility] [id number] Univers 16:15:00 16:15:00 SOFIYA bellamy [facility] 2020-06-07 2020-06-07 Outpatient R RICARDO, [facility] [id number] Univers 13:30:00 13:30:00 ROBERT bellamy [facility] 2020-05-31 2020-05-31 Outpatient R RICARDO [facility] [id number] Univers 15:00:00 15:00:00 ROBERT bellamy [facility] 2020-05-24 2020-05-24 Outpatient R HAO [facility] [id number] Univers 13:00:00 13:00:00 CHICHO bellamy o f [facility] 2020-05-17 2020-05-17 Outpatient [facility] [id number] Univers 08:30:00 08:30:00 ROBERT chely [facility] 2020-05-03 2020-05-03 Outpatient Bettye [facility] [id number] Univers 15:30:00 15:30:00 ROBERT chely [facility] 2020 2020 Telephone [facility] 1.2.840.114 [id number] 00:00:00 00:00:00 Raegan Hammer 350.1.13.10 [place] 4.2.7.2.686 Professio [phone] [address] 2020-02-28 2020-02-28 Telephone [facility] 1.2.840.114 [id number] 00:00:00 00:00:00 Raegan Hammer 350.1.13.10 [place] 4.2.7.2.686 Professio [phone] [address] 2020-02-27 2020-02-27 Orders Doctor ROBERT 1.2.840.114 [id number] 00:00:00 00:00:00 Only Unassigned, CARYN 350.1.13.10 [place] [facility] 4.2.7.2.686 [phone] [id number] 2020-02-23 2020-02-23 [facility]patient [facility] [id number] [facility] 14:20:00 14:20:00 RAEGAN [facility] 2020-02-23 2020-02-23 Telephone [facility] 1.2.840.114 [id number] 00:00:00 00:00:00 Raegan A Kanaranzi 350.1.13.10 [place] 4.2.7.2.686 Professio [phone] [address] 2020-02-21 2020-02-21 Telephone [facility] 1.2.840.114 [id number] 00:00:00 00:00:00 Raegan A Kanaranzi 350.1.13.10 [place] 4.2.7.2.686 Professio [phone] [address] 2020-02-15 2020-02-15 [facility] 1.2.840.114 [id number] 00:00:00 00:00:00 Raegan A Kanaranzi 350.1.13.10 [place] 4.2.7.2.686 Professio [phone] [address] 2020-02-13 2020-02-13 [facility] 1.2.840.114 [id number] 11:19:56 23:59:00 Encounter Raegan Friedman Kanaranzi 350.1.13.10 [place] 4.2.7.2.686 [place] [id number] [id number] 2020-02-13 2020-02-13 [facility] [id number] Univers 00:00:00 00:00:00 RAEGAN [facility] 2020-02-06 2020-02-06 Outpatient R [facility] [id number] Univers 14:30:00 14:30:00 mia [facility] 2020-02-06 2020-02-06 Office [facility] 1.2.840.114 [id number] 10:51:42 12:25:44 Visit Raegan Hammer 350.1.13.10 [place] 4.2.7.2.686 Evelyn [phone] [address] 2020-01-31 2020-01-31 Outpatient [facility] [id number] Univers 14:00:00 14:00:00 KAREN [facility] 2020-01-26 2020-01-26 Orders Doctor ROBERT 1.2.840.114 [id number] 00:00:00 00:00:00 Only Unassigned, CARYN 350.1.13.10 [place] [facility] 4.2.7.2.686 [id number] 2020-01-13 2020-01-13 Outpatient Bettye MORAES [facility] [id number] Univers 13:00:00 13:00:00 [facility] 2020-01-09 2020-01-09 Outpatient Bettye CORDON [facility] [id number] Univers 09:20:00 09:20:00 ANIYAH bellamy o f [facility] 2019-12-26 2019-12-26 Outpatient [facility] [id number] Univers 08:30:00 08:30:00 KAREN [facility] 2019-11-28 2019-11-28 Outpatient Bettye WALKER [facility] [id number] Univers 11:00:00 11:00:00 CHIRAG mia [facility] 2019-11-24 2019-11-24 [facility] [id number] [place] 00:00:00 00:00:00 ANNA [facility] 2019-11-14 2019-11-14 Outpatient R EMMANUEL [facility] [id number] Univers 11:20:00 11:20:00 ANIYAH bellamy o f [facility] 2019-11-07 2019-11-07 [facility] [id number] Univers 14:00:00 14:00:00 RAEGAN bellamy [facility] 2019-11-07 2019-11-07 Outpatient R BARRETT, [facility] [id number] Univers 10:40:00 12:09:31 RAEGANMASODO bellamy [facility] 2019-11-02 2019-11-02 Outpatient R EMMANUEL, [facility] [id number] Univers 11:20:00 11:20:00 ANIYAH bellamy o f [facility] 2019-10-20 2019-10-20 Outpatient R [facility] [id number] Univers 11:20:00 11:20:00 mia [facility] 2019-09-23 2019-09-23 Outpatient R NENA [facility] [id number] Univers 08:40:00 08:40:00 RAEGAN bellamy [facility] 2019-09-13 2019-09-13 [id number] [place] 00:00:00 00:00:00 ANNA 527 Method i 2019-09-08 2019-09-08 [facility] [id number] [place] 00:00:00 00:00:00 ANNA 793 Method i 2019-09-08 2019-09-08 [facility] [id number] [place] 00:00:00 00:00:00 ANNA 526 Method i 2019-08-25 2019-08-25 Outpatient R IAIN [facility] [id number] Univers 10:45:00 10:45:00 [place] ity [facility] 2019-08-23 2019-08-23 Outpatient [facility] [id number] [place] 00:00:00 00:00:00 804 Method i 2019-08-08 2019-08-08 Outpatient R IAIN [facility] [id number] Univers 08:30:00 08:30:00 [place] bellamy [facility] 2019-07-21 2019-07-21 Outpatient R IAIN [facility] [id number] Univers 10:59:56 23:59:00 [place] bellamy [facility] 2019-07-21 2019-07-21 Outpatient R IAIN [facility] [id number] Univers 10:45:00 10:45:00 [place] bellamy [facility] 2019-07-06 2019-07-06 Outpatient R EMMANUEL, [facility] [id number] Univers 09:20:00 09:20:00 ANIYAH bellamy o f [facility] 2019-06-22 2019-06-[address] [facility] PRASHANTH [id number] Univers 06:16:54 17:21:00 NICOLETTE bellamy [facility] 2019-06-21 2019-06-21 Outpatient R NENA, [facility] [id number] Univers 09:00:00 09:00:00 RAEGAN ity [facility] 2019-05-17 2019-05-17 Outpatient R IAIN, [facility] [id number] Univers 15:45:00 16:12:36 [place] bellamy [facility] 2019-05-03 2019-05-03 Outpatient R IAIN, [facility] [id number] Univers 07:58:00 13:45:00 [place] bellamy [facility] 2019-04-21 2019-04-21 Outpatient R IAIN, [facility] [id number] Univers 10:15:00 10:52:40 [place] bellamy [facility] 2019-03-07 2019-03-07 Outpatient R SHARON MAYERS [facility] [id number] Univers 10:00:00 09:53:42 [facility] 2019-01-13 2019-01-13 Outpatient R PRESTON, [facility] [id number] Univers 06:32:00 09:04:00 EDUARDO mia [facility] 2019-01-04 2019-01-04 Outpatient R EMMANUEL, [facility] [id number] Univers 13:20:00 13:52:31 ANIYAH bellamy o yesenia [facility] 2018-12-29 2018-12-29 Outpatient R EMMANUEL, [facility] [id number] Univers 13:20:00 13:20:00 ANIYAH bellamy o yesenia [facility] 2018-12-17 2018-12-[address], [facility] PRASHANTH [id number] Univers 11:02:00 14:20:00 NICOLETTE [facility] 2018-10-28 2018-10-28 Outpatient R ZANE, [facility] [id number] [facility] 10:30:00 11:02:21 KALLIE [facility] 2018-10-22 2018-10-22 Outpatient R HUMPHREY [facility] [id number] [facility] 10:00:00 10:50:24 KAREN [facility] 2018-10-04 2018-10-04 Outpatient R EDUARDO [facility]QUE[facility] [id number] [facility] 15:15:00 15:35:28 EDUARDO MCQUEEN [facility] 2018-09-22 2018-09-22 Outpatient R EDUARDO MCQUEEN [facility] [id number] [facility] 14:00:00 15:00:57 EDUARDO MCQUEEN [facility] 2018-08-26 2018-08-26 Outpatient Bettye BARRETT [facility] [id number] [facility] 14:00:00 15:20:[facility] 2018-08-05 Outpatient Bettye BARRETT [facility] [id number] [facility] 09:45:00 09:45:00 [facility] Results Test Description Test Time Test Comments [...] normal RBCs (test code = RBCs) negative [facility] [Identifier] in Vaginal fluid by Wet [id number] 11:46:00 Test Item Value Reference Range Interpretation Comments Clue Cells (test code = Clue Cells) negative WBCs (test code = WBCs) positive Trichomonads (test code = negative Trichomonads) Epithelial cells (test code = normal Epithelial cells) RBCs (test code = RBCs) positive [facility] 2000 panel - Serum or [id number] 01:57:00 Test Item Value Reference Range Interpretation [...] code = 9.1 mg/dL 8.6-10.0 calcium level) [facility] W Auto Differential panel - [id number] 01:57:00 Test Item Value Reference Range Interpretation Comments white blood count (test code = 8.1 K/uL 4.0-11.5 white blood count) red blood count (test code = red 4.08 M/uL 3.80-5.20 blood count) hemoglobin (test code = 11.7 g/dL 10.5-15.7 hemoglobin) hematocrit (test code = 38.3 % 34.0-50.0 hematocrit) MCV [Entitic volume] (test code = 93.9 fL 86-100 50149-9) mean corpuscular hemoglobin (test 28.7 pg 26.2-33.4 [...] 44.4-80.1 leukocytes in Blood (test code = 53862-5) Immature granulocytes [#/volume] 0.0 K/uL 0.0-0.03 in Blood (test code = 82787-1) lymphocyte% (test code = 15.3 % 10.0-50.0 lymphocyte%) mono % (test code = mono %) 10.8 % 3.6-12.0 eos % (test code = eos %) 5.0 % 0.0-5.4 Basophils/100 leukocytes in 0.5 % 0.1-1.2 Unspecified specimen (test code = 64433-3) Band form neutrophils [#/volume] 5.54 K/uL 1.56-6.13 in Blood (test code = 13247-3) Lymphocytes [#/volume] in 1.2 K/uL 1.18-3.74 Unspecified specimen by Automated count (test code = 40505-9) mono # (test code = mono #) 0.88 K/uL 0.24-0.86 H eos # (test code = eos #) 0.41 K/uL 0.04-0.36 H basophil # (test code = basophil 0.04 K/uL 0.01-0.08 #) NRBC% (test code = NRBC%) 0 /100 WBC 0-0.2 NRBC# (test code = NRBC#) 0 K/uL [facility] RNA [Presence] in Respiratory specimen by VANITA with probe [id number] 07:55:2422434-4Svwtbncwp Medical GroupBlood type and Indirect antibody screen panel - [id number] 07:30:00 Test Item Value Reference Range Interpretation Comments Rh [Type] in Blood (test code = 4+ 78302-0) ABO and Rh group panel - Blood A positive (test code = 94969-4) [facility] RNA [Presence] in Respiratory specimen by VANITA with probe [id number] 16:49:18 Test Item Value Reference Range Interpretation Comments SARS-CoV-2 (COVID-19) RNA Not detected Not-Detected [Presence] in Respiratory specimen by VANITA with probe detection (test code = 95970-3) 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 (test code = 17432-2) Whether the patient has symptoms related to condition of interest (test code = 71766-8) Patient was hospitalized because of this condition (test code = 12614-3) Whether the patient was admitted to intensive care unit (ICU) for condition of interest (test code = 57640-9) Whether patient resides in a congregate care setting (test code = 76847-4) [facility] coronavirus 2 RNA [Presence] in Respiratory specimen by VANITA with probe [id number] 21:20:29 Test Item Value Reference Range Interpretation Comments SARS coronavirus 2 RNA Not detected Not-Detected [Presence] in Respiratory specimen by VANITA with probe detection (test code = 13921-1) [id number] 08:36:00 Test Item Value Reference Range Interpretation Comments POTASSIUM (test code 4.1 MMOL/L 3.5-4.9 N Previou sly reported = K) result: 4.0 MMOL/LEdited by : DEEJAY on 03/21/19:469333 0825: K previou sly reported as: 4. 0 MMOL/L [id number] 08:24:00 Test Item Value Reference Range Interpretation Comments POTASSIUM (test code = K) 4.0 MMOL/L 3.5-4.9 N POCT-GLUCOSE [id number] 14:54:00 Test Item Value Reference Range Interpretation Comments POC-GLUCOSE METER 117 mg/dL 70-110 H TESTED AT [facility] 6720 (BEAKER) (test code = AUDREY Wen [facility] 1538) [address] [id number] 12:36:00 Test Item Value Reference Range Interpretation Comments FERRITIN (BEAKER) (test code = 361) 568 ng/mL 5-275 H BASIC METABOLIC [id number] 12:26:00 Test Item Value Reference Range Interpretation [...] S NOT APPLICABLE FOR DIALYSIS PATIEN TS. [id number] 12:22:00 Test Item Value Reference Range Interpretation Comments MAGNESIUM (BEAKER) (test code = 1.6 mg/dL 1.6-2.6 627) CBC W/PLT COUNT & AUTO [id number] 12:02:00 Test Item Value Reference Range Interpretation [...] PERCENT (BEAKER) (test code = 2801) POCT-GLUCOSE [id number] 11:10:00 Test Item Value Reference Range Interpretation Comments POC-GLUCOSE METER 114 mg/dL 70-110 H TEST[facility] [place] [address] [facility] ([facility] = [facility] 1538) [address] POCT-GLUCOSE [id number] 08:09:00 Test Item Value Reference Range Interpretation Comments POC-GLUCOSE METER 120 mg/dL 70-110 H TESTED [facility] [place] [address] [facility] (test code = [facility] Bettye [facility] 1538) [address] PROTEIN, RANDOM [id number] 00:08:00 Test Item Value Reference Range Interpretation Comments PROTEIN, URINE (BEAKER) (test code 372 mg/dL 0-14 H = 1569) CREATININE, RANDOM [id number] 23:14:00 Test Item Value Reference Range Interpretation Comments CREATININE URINE (BEAKER) (test 26.6 mg/dL code = 375) Reference Range: No NormalsUREA NITROGEN, RANDOM [id number] 23:14:00 Test Item Value Reference Range Interpretation Comments UREA NITROGEN URINE (BEAKER) (test 163 mg/dL code = 538) Reference Range: No NormalsPOCT-GLUCOSE [id number] 20:49:00 Test Item Value Reference Range Interpretation Comments POC-GLUCOSE METER 144 mg/dL 70-110 H TESTED AT [facility] 6720 (BEAKER) (test code = AUDREY Wen [facility] 1538) [address] POCT-GLUCOSE [id number] 16:59:00 Test Item Value Reference Range Interpretation Comments POC-GLUCOSE METER 125 mg/dL 70-110 H TESTED AT [place] [address] (BEAKER) (test code = AUDREY Wen [facility] 1538) [address] POCT-GLUCOSE [id number] 12:30:00 Test Item Value Reference Range Interpretation Comments POC-GLUCOSE METER 91 mg/dL 70-110 TESTED AT [place] [address] (BEAKER) (test code = AUDREY Wen [facility] [address] 1538) POCT-GLUCOSE [id number] 07:32:00 Test Item Value Reference Range Interpretation Comments POC-GLUCOSE METER 147 mg/dL 70-110 H TESTED AT [place] [address] (BEAKER) (test code = AUDREY Wen [facility] 1538) [address] BASIC METABOLIC [id number] 07:06:00 Test Item Value Reference Range Interpretation [...] S NOT APPLICABLE FOR DIALYSIS PATIEN TS. [id number] 06:45:00 Test Item Value Reference Range Interpretation Comments MAGNESIUM (BEAKER) (test code = 1.8 mg/dL 1.6-2.6 627) CBC W/PLT COUNT & AUTO [id number] 05:49:00 Test Item Value Reference Range Interpretation [...] PERCENT (BEAKER) (test code = 2801) POCT-GLUCOSE [id number] 19:53:00 Test Item Value Reference Range Interpretation Comments POC-GLUCOSE METER 104 mg/dL 70-110 TESTED AT [place] [address] ([facility]) (test code = [facility] 1538) [address] POCT-GLUCOSE [id number] 17:13:00 Test Item Value Reference Range Interpretation Comments POC-GLUCOSE METER 116 mg/dL 70-110 H TESTED AT [place] [address] ([facility]) (test code = [facility] 1538) [address] POCT-GLUCOSE [id number] 12:52:00 Test Item Value Reference Range Interpretation Comments POC-GLUCOSE METER 94 mg/dL 70-110 TESTED AT [place] [address] ([facility]) (test code = [facility] [address] 1538) POCT-GLUCOSE [id number] 07:54:00 Test Item Value Reference Range Interpretation Comments POC-GLUCOSE METER 91 mg/dL 70-110 TESTED AT [place] [address] ([facility]) (test code = [facility] [address] 1538) BASIC METABOLIC [id number] 04:57:00 Test Item Value Reference Range Interpretation [...] S NOT APPLICABLE FOR DIALYSIS PATIEN TS. [id number] 04:50:00 Test Item Value Reference Range Interpretation Comments MAGNESIUM (BEAKER) (test code = 1.8 mg/dL 1.6-2.6 627) POCT-GLUCOSE [id number] 21:19:00 Test Item Value Reference Range Interpretation Comments POC-GLUCOSE METER 142 mg/dL 70-110 H TESTED AT [place] [address] (BEAKER) (test code = [facility] 1538) [address] POCT-GLUCOSE [id number] 16:51:00 Test Item Value Reference Range Interpretation Comments POC-GLUCOSE METER 196 mg/dL 70-110 H TESTED AT [place] [address] [facility] (test code = [facility] 1538) [address] POCT-GLUCOSE [id number] 12:00:00 Test Item Value Reference Range Interpretation Comments POC-GLUCOSE METER 76 mg/dL 70-110 TESTED AT [place] [address] (BEAKER) (test code = [facility] [address] 1538) BASIC METABOLIC [id number] 11:34:00 Test Item Value Reference Range Interpretation [...] S NOT APPLICABLE FOR DIALYSIS PATIEN TS. [id number] 11:29:00 Test Item Value Reference Range Interpretation Comments MAGNESIUM (BEAKER) (test code = 1.6 mg/dL 1.6-2.6 627) POCT-GLUCOSE [id number] 07:27:00 Test Item Value Reference Range Interpretation Comments POC-GLUCOSE METER 104 mg/dL 70-110 TESTED AT [facility] 6720 (BEAKER) (test code = [place] Wen [place] 1538) [address] POCT-GLUCOSE [id number] 22:46:00 Test Item Value Reference Range Interpretation Comments POC-GLUCOSE METER 153 mg/dL 70-110 H TESTED AT [place] [address] (BEAKER) (test code = [place] Wen [place] 1538) [address] POCT-GLUCOSE [id number] 16:45:00 Test Item Value Reference Range Interpretation Comments POC-GLUCOSE METER 106 mg/dL 70-110 TESTED AT [place] [address] (BEAKER) (test code = [place] Wen [place] 1538) [address] POCT-GLUCOSE [id number] 11:29:00 Test Item Value Reference Range Interpretation Comments POC-GLUCOSE METER 145 mg/dL 70-110 H TESTED AT [place] [address] (BEAKER) (test code = AUDREY Wen [place] 1538) [address] POCT-GLUCOSE [id number] 07:34:00 Test Item Value Reference Range Interpretation Comments POC-GLUCOSE METER 177 mg/dL 70-110 H TESTED AT [place] [address] (BEAKER) (test code = [facility] Bettye [place] 1538) [address] BASIC METABOLIC [id number] 06:41:00 Test Item Value Reference Range Interpretation [...] S NOT APPLICABLE FOR DIALYSIS PATIEN TS. [id number] 06:25:00 Test Item Value Reference Range Interpretation Comments MAGNESIUM (BEAKER) (test code = 1.8 mg/dL 1.6-2.6 627) CBC W/PLT COUNT & AUTO [id number] 05:51:00 Test Item Value Reference Range Interpretation [...] PERCENT (BEAKER) (test code = 2801) POCT-GLUCOSE [id number] 22:54:00 Test Item Value Reference Range Interpretation Comments POC-GLUCOSE METER 173 mg/dL 70-110 H TESTED AT [place] [address] (BEAKER) (test code = [facility] 1538) [address] POCT-GLUCOSE [id number] 16:55:00 Test Item Value Reference Range Interpretation Comments POC-GLUCOSE METER 95 mg/dL 70-110 TESTED AT [place] [address] (BEAKER) (test code = [facility] [address] 1538) URIC [id number] 12:46:00 Test Item Value Reference Range Interpretation Comments URIC ACID (BEAKER) (test code = 5.9 mg/dL 2.6-7.2 773) POCT-GLUCOSE [id number] 11:38:00 Test Item Value Reference Range Interpretation Comments POC-GLUCOSE METER 129 mg/dL 70-110 H TESTED AT [place] [address] (BEAKER) (test code = [facility] 1538) [address] [id number] 09:39:00 Test Item Value Reference Range Interpretation Comments MAGNESIUM (BEAKER) (test code = 1.9 mg/dL 1.6-2.6 627) BASIC METABOLIC [id number] 09:05:00 Test Item Value Reference Range Interpretation [...] PATIEN TS. CBC W/PLT COUNT & AUTO [id number] 08:22:00 Test Item Value Reference Range Interpretation [...] PERCENT (BEAKER) (test code = 2801) POCT-GLUCOSE [id number] 07:28:00 Test Item Value Reference Range Interpretation Comments POC-GLUCOSE METER 253 mg/dL 70-110 H TESTED AT [facility] 6720 (BEAKER) (test code = AUDREY Wen [facility] 1538) [address] POCT-GLUCOSE [id number] 20:28:00 Test Item Value Reference Range Interpretation Comments POC-GLUCOSE METER 186 mg/dL 70-110 H TESTED AT [place] [address] (BEAKER) (test code = AUDREY Wen [facility] 1538) [address] POCT-GLUCOSE [id number] 17:39:00 Test Item Value Reference Range Interpretation Comments POC-GLUCOSE METER 130 mg/dL 70-110 H TESTED AT [place] [address] (BEAKER) (test code = AUDREY Wen [place] 1538) [address] POCT-GLUCOSE [id number] 11:55:00 Test Item Value Reference Range Interpretation Comments POC-GLUCOSE METER 212 mg/dL 70-110 H TESTED AT [place] [address] (BEAKER) (test code = AUDREY Wen [place] 1538) [address] POCT-GLUCOSE [id number] 08:14:00 Test Item Value Reference Range Interpretation Comments POC-GLUCOSE METER 178 mg/dL 70-110 H TESTED AT [facility] 6720 (BEAKER) (test code = [place]UDREY [place] 1538) [address] BASIC METABOLIC [id number] 07:08:00 Test Item Value Reference Range Interpretation [...] S NOT APPLICABLE FOR DIALYSIS PATIEN TS. [id number] 06:59:00 Test Item Value Reference Range Interpretation Comments MAGNESIUM (BEAKER) (test code = 1.8 mg/dL 1.6-2.6 627) CBC W/PLT COUNT & AUTO [id number] 06:34:00 Test Item Value Reference Range Interpretation [...] PERCENT (BEAKER) (test code = 2801) POCT-GLUCOSE [id number] 20:06:00 Test Item Value Reference Range Interpretation Comments POC-GLUCOSE METER 113 mg/dL 70-110 H TESTED AT [facility] 6720 (BEAKER) (test code = [place]UDREY [place] 1538) [address] POCT-GLUCOSE [id number] 17:11:00 Test Item Value Reference Range Interpretation Comments POC-GLUCOSE METER 123 mg/dL 70-110 H TESTED AT [facility] 6720 (BEAKER) (test code = [place]UDREY [place] 1538) [address] POCT-GLUCOSE [id number] 12:31:00 Test Item Value Reference Range Interpretation Comments POC-GLUCOSE METER 105 mg/dL 70-110 TESTED AT [facility] 6720 (BEAKER) (test code = AUDREY Wen [place] 1538) [address] POCT-GLUCOSE [id number] 07:41:00 Test Item Value Reference Range Interpretation Comments POC-GLUCOSE METER 95 mg/dL 70-110 TESTED AT [facility] 6720 (BEAKER) (test code = AUDREY Wen [facility] [address] 1538) BASIC METABOLIC [id number] 06:26:00 Test Item Value Reference Range Interpretation [...] S NOT APPLICABLE FOR DIALYSIS PATIEN TS. [id number] 06:19:00 Test Item Value Reference Range Interpretation Comments MAGNESIUM (BEAKER) (test code = 1.9 mg/dL 1.6-2.6 627) CBC W/PLT COUNT & AUTO [id number] 06:06:00 Test Item Value Reference Range Interpretation [...] PERCENT (BEAKER) (test code = 2801) POCT-GLUCOSE [id number] 22:48:00 Test Item Value Reference Range Interpretation Comments POC-GLUCOSE METER 106 mg/dL 70-110 TESTED AT [facility] 6720 (BEAKER) (test code = AUDREY [place] 1538) [address] POCT-GLUCOSE [id number] 17:24:00 Test Item Value Reference Range Interpretation Comments POC-GLUCOSE METER 106 mg/dL 70-110 TESTED AT [facility] 6720 (BEAKER) (test code = AUDREY Wen [place] 1538) [address] POCT-GLUCOSE [id number] 12:04:00 Test Item Value Reference Range Interpretation Comments POC-GLUCOSE METER 206 mg/dL 70-110 H TESTED AT [facility] 6720 (BEAKER) (test code = AUDREY Wen [place] 1538) [address] POCT-GLUCOSE [id number] 07:23:00 Test Item Value Reference Range Interpretation Comments POC-GLUCOSE METER 221 mg/dL 70-110 H TESTED AT [facility] 6720 (BEAKER) (test code = AUDREY Wen [place] 1538) [address] VITAMIN B12 AND [id number] 06:47:00 Test Item Value Reference Range Interpretation Comments VITAMIN B12 (BEAKER) (test code = 441 pg/mL 213-816 774) FOLATE (BEAKER) (test code = 362) 7.7 ng/mL >=7.0 [id number] 06:25:00 Test Item Value Reference Range Interpretation Comments MAGNESIUM (BEAKER) (test code = 1.9 mg/dL 1.6-2.6 627) BASIC METABOLIC [id number] 06:25:00 Test Item Value Reference Range Interpretation [...] APPLICABLE FOR DIALYSIS PATIEN TS. CREATININE, RANDOM [id number] 05:48:00 Test Item Value Reference Range Interpretation Comments CREATININE URINE (SLICK) (test 40.4 mg/dL code = 375) Reference Range: No NormalsUREA NITROGEN, RANDOM [id number] 05:48:00 Test Item Value Reference Range Interpretation Comments UREA NITROGEN URINE (SLICK) (test 224 mg/dL code = 538) Reference Range: No NormalsPOCT-GLUCOSE [id number] 16:52:00 Test Item Value Reference Range Interpretation Comments POC-GLUCOSE METER 123 mg/dL 70-110 H TESTED AT [facility] 6720 (SLICK) (test code = AUDREY [place] 1538) [address] EEG AWAKE AND [id number] 14:21:00Reason for exam:->?seizureCHI [facility] DATE OF TEST: 04/26/2018 ACC: [id number] Start time: 10:25 Stop time: 10:55 ICD-10: R55 CPT Code: 74004 HISTORY: 43 yo female with PMHx of PE, CHF, HTN, DMII,JOSEFA, morbid obesity, and possible seizure disorder/syncope admitted [...] Cm MD Neurophysiology/Epilepsy Fellow Ruddy Burdick M.D., FACNS, FAAN, FADONAL Professor of Neurology, [facility] [employer] Director, [facility] Head, Mike Nealurophysiology Lab POCT-GLUCOSE [id number] 11:40:00 Test Item Value Reference Range Interpretation Comments POC-GLUCOSE METER 116 mg/dL 70-110 H TESTED AT [facility] 67 (BEAKER) (test code = AUDREY Wen [place] 1538) [address] BASIC METABOLIC [id number] 10:48:00 Test Item Value Reference Range Interpretation [...] 153 U/L 29-200 code = 380) POCT-GLUCOSE [id number] 07:38:00 Test Item Value Reference Range Interpretation Comments POC-GLUCOSE METER 125 mg/dL 70-110 H TESTED AT [facility] 6720 (BEAKER) (test code = AUDREY Wen [place] 1538) [address] CBC W/PLT COUNT & AUTO [id number] 06:49:00 Test Item Value Reference Range Interpretation [...] % 0-1 PERCENT (BEAKER) (test code = 5491) POCT-GLUCOSE [id number] 20:35:00 Test Item Value Reference Range Interpretation Comments POC-GLUCOSE METER 173 mg/dL 70-110 H TESTED AT [place] [address] ([facility]) (test code = AUDREY Wen [facility] 1538) [address] POCT-GLUCOSE [id number] 18:13:00 Test Item Value Reference Range Interpretation Comments POC-GLUCOSE METER 128 mg/dL 70-110 H TESTED AT [place] [address] ([facility]) (test code = AUDREY Wen [facility] 1538) [address] POCT-GLUCOSE [id number] 12:16:00 Test Item Value Reference Range Interpretation Comments POC-GLUCOSE METER 235 mg/dL 70-110 H TESTED AT [place] [address] ([facility]) (test code = AUDREY Wen [facility] 1538) 78478 VITAMIN D, 88-[id number] 09:48:00 Test Item Value Reference Range Interpretation Comments VITAMIN D 25-OH (BANNER) (test code 5.3 ng/mL 6.6-49.9 L = 2764) Effective 01/14/2017: Reference Range ChangeNew: 6.6-49.9 ng/mL Previous: 13.0- 47.8 ng/mLRecommendedVitamin D Target Range: 30.0-40.0 ng/mLPOCT-GLUCOSE METER 2018-04-25 08:59:00 Test Item Value Reference Range Interpretation Comments POC-GLUCOSE METER 298 mg/dL 70-110 H TESTED AT [place] [address] ([facility]) (test code = AUDREY Wen [facility] 1538) [address]36 HEMOGLOBIN [id number] 08:30:00 Test Item Value Reference Range Interpretation Comments HEMOGLOBIN A1C (BEAKER) (test code = 7.9 % 4.3-6.1 H 368) BASIC METABOLIC [id number] 08:16:00 Test Item Value Reference Range Interpretation [...] NOT APPLICABLE FOR DIALYSIS PATIEN TS. PTH, [id number] 08:13:00 Test Item Value Reference Range Interpretation [...] 47 % 20-55 (test code = 2590) [id number] 08:05:00 Test Item Value Reference Range Interpretation Comments PHOSPHORUS (BEAKER) (test code = 5.2 mg/dL 2.3-4.7 H 604) CREATINE KINASE (CK)2018-04-25 08:05:00 Test Item Value Reference Range Interpretation Comments CREATINE KINASE TOTAL (BEAKER) (test 352 U/L 29-200 H code = 380) PROTEIN, RANDOM [id number] 02:06:00 Test Item Value Reference Range Interpretation Comments PROTEIN, URINE (BEAKER) (test code = > mg/dL 0-14 H 1569) SODIUM, RANDOM [id number] 00:57:00 Test Item Value Reference Range Interpretation Comments SODIUM URINE (BEAKER) (test code = < meq/L 243) Reference Range: No NormalsCREATININE, RANDOM [id number] 00:52:00 Test Item Value Reference Range Interpretation Comments CREATININE URINE (BEAKER) (test 131.0 mg/dL code = 375) Reference Range: No NormalsURINALYSIS W/ REFLEX URINE [id number] 00:32:00 Test Item Value Reference Range Interpretation [...] code = 1584) SOURCE(BEAKER) (test code = 2118) POCT-GLUCOSE [id number] 21:23:00 Test Item Value Reference Range Interpretation Comments POC-GLUCOSE METER 250 mg/dL 70-110 H TESTED AT [facility] 6720 (BEAKER) (test code = [place] 1538) [address] BASIC METABOLIC [id number] 20:14:00 Test Item Value Reference Range Interpretation [...] NOT APPLICABLE FOR DIALYSIS PATIEN TS. TROPONIN [id number] 18:18:00 Test Item Value Reference Range Interpretation [...] Interpretation Comments CREATINE KINASE TOTAL (BEAKER) (test 566 U/L 29-200 H code = 380) POCT-GLUCOSE [id number] 17:31:00 Test Item Value Reference Range Interpretation Comments POC-GLUCOSE METER 249 mg/dL 70-110 H TESTED AT [facility] 6720 (BANNER) (test code = AUDREY Wen [place] 1538) [address] U/S, RENAL, [id number] 16:18:00Reason for exam:->AKIFINAL REPORT RENAL ULTRASOUND HISTORY: Acute kidney injury TECHNIQUE: Real-timeultrasound of the kidneys was performed. FINDINGS: The kidneys are normal in size, contour, and echogenicity. The right kidney measures 12.0 cm in length and the left kidney measures 12.5 cm in length.Renal cortical thickness measures 1.0 cm on the [...] MDReport Verified Date/Time: 04/24/2018 16:18:43 Reading Location: [facility] [address] [place] [address] Reading Room POCT-GLUCOSE [id number] 15:05:00 Test Item Value Reference Range Interpretation Comments POC-GLUCOSE METER 391 mg/dL 70-110 H TESTED AT [facility] 6720 (BEAKER) (test code = AUDREY Wen [facility] 1538) 54[address] LACTIC ACID, VENOUS, WHOLE [id number] 11:35:00 Test Item Value Reference Range Interpretation Comments LACTATE BLOOD VENOUS 1.3 mmol/L 0.5-2.2 Specime n slightly (2) (BEAKER) (test hemolyzed code = 2872) RAPID DRUG SCREEN, [id number] 08:50:00 Test Item Value Reference Range Interpretation [...] situations. Chain of custody not maintained. Some khcu-sun-zmqjifv medications, as well as adulterants, may cause inaccurate results. Clinical correlation should be applied. [place] comprehensive drug screen or confirmation of a detected drug may be performed upon request.SODIUM, RANDOM [id number] 08:44:00 Test Item Value Reference Range Interpretation Comments SODIUM URINE (BEAKER) (test code = 23 meq/L 243) Reference Range: No NormalsCREATININE, RANDOM [id number] 08:43:00 Test Item Value Reference Range Interpretation Comments CREATININE URINE (BEAKER) (test 95.4 mg/dL code = 375) Reference Range: No NormalsPOCT-GLUCOSE [id number] 08:01:00 Test Item Value Reference Range Interpretation Comments POC-GLUCOSE METER 496 mg/dL 70-110 HH [facility] [place] [address] [facility] (test code = [facility] 1538) [address] URIC [id number] 08:01:00 Test Item Value Reference Range Interpretation Comments URIC ACID (BEAKER) (test code = 5.2 mg/dL 2.6-7.2 773) POCT-GLUCOSE [id number] 07:32:00 Test Item Value Reference Range Interpretation Comments POC-GLUCOSE METER 480 mg/dL 70-110 [facility] [place] [address] [facility] (test code = [facility] 1538) [id number] URINALYSIS W/ [id number] 07:30:00 Test Item Value Reference Range Interpretation [...] 515) SOURCE(BEAKER) (test code = Urine, Voided 8056) TROPONIN [id number] 07:29:00 Test Item Value Reference Range Interpretation [...] acute neurological disease, and persistent tachyarrhythmia. SCREEN, [id number] 07:17:00 Test Item Value Reference Range Interpretation Comments TEST URINE (BEAKER) (test Negative code = 583) CBC W/PLT COUNT & AUTO [id number] 07:05:00 Test Item Value Reference Range Interpretation [...] (BEAKER) (test code = 2801) COMPREHENSIVE METABOLIC [id number] 03:08:00 Test Item Value Reference Range Interpretation [...] FOR DIALYSIS PATIEN TS. TSH/FREE T4 IF [id number] 02:49:00 Test Item Value Reference Range Interpretation Comments THYROID STIMULATING HORMONE 1.32 uIU/mL 0.35-4.94 (BEAKER) (test code = 772) [id number] 02:37:00 Test Item Value Reference Range Interpretation Comments MAGNESIUM (BEAKER) (test code = 1.6 mg/dL 1.6-2.6 627) CREATINE KINASE (CK)2018-04-24 02:37:00 Test Item Value Reference Range Interpretation Comments CREATINE KINASE TOTAL (BEAKER) (test 1983 U/L 29-200 H code = 380) CBC W/PLT COUNT & AUTO [id number] 01:03:00 Test Item Value Reference Range Interpretation [...] = 2801) RAD, CHEST, 1 VIEW, NON [id number] 23:44:00Reason for exam:->Syncope, rhabdomyolysisIs the patient ?->UnknownShould [...] MDReport Verified Date/Time: 04/23/2018 23:44:17 Reading Location: [address] Reading Room
[2022-04-21] MEDS ORDERED: MORPHINE 4 MG/ML SYR ONE ×2 (04:26→05:53)
[2022-04-21] MEDS ORDERED: FAMOTIDINE 20 MG/2 ML VIAL IV ONE (04:27)
[2022-04-21] MEDS ORDERED: ONDANSETRON 4 MG/2 ML VIAL ONE (04:27)
[2022-04-21 04:49] LABS: Hematocrit 33.2 % (36.0-45.0); MCV 93.2 fL (80-100); MPV 9.9 fL (7.6-11.3); RBC Red Blood Cell Count 3.57 M/uL (3.86-4.86)
[2022-04-21 05:25] LABS: Albumin 2.9 g/dL (3.4-5.0); Bilirubin Total 0.4 mg/dL (0.2-1.0); Potassium 4.6 mmol/L (3.5-5.1); Protein, Total 7.7 g/dL (6.4-8.2)
[2022-04-21] MEDS ORDERED: INSULIN -REGULAR HUMAN 50 UNIT/0.5 ML ML ONE (05:54)
--- NOTE | 2022-04-21 07:41 | ER ---
Nurse's Notes [facility] Name: Sherita Patel Age: 47 yrs Sex: Female : 1975 Arrival Date: 04/21/2022 Time: 04:00 Bed 19 Private MD: Diagnosis: Abdominal pain, Generalized;Left flank pain Presentation: 04/21 04:10 Chief complaint: Patient states: I have been having abdominal pain since yesterday and ha1 I feel that it is getting worse. I am also feeling nausea. Coronavirus screen: Vaccine status: Patient reports being unvaccinated. Ebola Screen: No symptoms or risks identified at this time. Initial Sepsis Screen: Does the patient meet any 2 criteria? No. Patient's initial sepsis screen is negative. Does the patient have a suspected source of infection? No. Patient's initial sepsis screen is negative. Risk Assessment: Do you want to hurt yourself or someone else? Patient reports no desire to harm self or others. Onset of symptoms was April 21, 2022. 04:10 Method Of Arrival: Ambulatory ha1 04:10 Acuity: ERNST 3 ha1 Triage Assessment: 04:14 General: Appears uncomfortable, Behavior is calm, cooperative. Pain: Complains of pain ha1 in left lower quadrant Pain does not radiate. Pain currently is 10 out of 10 on a pain scale. Quality of pain is described as throbbing, Aggravated by increased activity. EENT: Poor dentition noted. Neuro: Level of Consciousness is awake, alert, obeys commands, Oriented to person, place, time, situation. Cardiovascular: Capillary refill < 3 seconds Patient's skin is warm and dry. Respiratory: Airway is patent Respiratory effort is even, unlabored, Respiratory pattern is regular, symmetrical. GI: Abdomen is non-distended, obese, Bowel sounds present X 4 quads. Reports nausea, pain on the left lower quadrant of abdomen. : No signs and/or symptoms were reported regarding the genitourinary system. Derm: Skin is pink, warm \T\ dry. Musculoskeletal: Circulation, motion, and sensation intact. Range of motion: intact in all extremities. 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 - Social history:: Smoking status: Patient/guardian denies using tobacco, the patient reports quitting approximately 2010 years ago. Screenin:00 Abuse screen: Denies threats or abuse. Denies injuries from another. Nutritional ha1 screening: No deficits noted. Tuberculosis screening: No symptoms or risk factors identified. 04:00 [facility] ED Fall Risk Assessment (Adult) History of falling in the last 3 months, ha1 including since admission No falls in past 3 months (0 pts) Confusion or Disorientation No (0 pts) Intoxicated or Sedated No (0 pts) Impaired Gait No (0 pts) Mobility Assist Device Used No (0 pt) Altered Elimination No (0 pt) Score/Fall Risk Level 0 - 2 = Low Risk Oriented to surroundings, Maintained a safe environment, Educated pt \T\ family on fall prevention, incl call for assistance when getting out of bed. Assessment: 04:00 General: see triage assessment . ha1 04:42 Reassessment: going to CT. ha1 05:00 Reassessment: Patient and/or family updated on plan of care and expected duration. Pain ha1 level reassessed. Patient is alert, oriented x 3, equal unlabored respirations, skin warm/dry/pink. notified in shift Patient states symptoms have not improved. 06:00 Reassessment: Patient and/or family updated on plan of care and expected duration. Pain ha1 level reassessed. Patient is alert, oriented x 3, equal unlabored respirations, skin warm/dry/pink. pain 8/10. 06:23 Reassessment: Patient and/or family updated on plan of care and expected duration. Pain ha1 level reassessed. Patient is alert, oriented x 3, equal unlabored respirations, skin warm/dry/pink. pain 4/10 Patient states symptoms have improved. 07:15 Reassessment: Patient appears in no apparent distress at this time. Patient and/or db family updated on plan of care and expected duration. Pain level reassessed. Patient is alert, oriented x 3, equal unlabored respirations, skin warm/dry/pink. PATIENT RESTING. FAMILY AT BEDSIDE. GI:. 08:10 Neuro: No deficits noted. Level of Consciousness is awake, alert, obeys commands, db Oriented to person, place, time, situation, Speech is normal. GI: Abdomen is round distended, Abd is soft and non tender. GI:. Vital Signs: 04:14 BP 198 / 97; Pulse 79; Resp 16 S; Temp 98.1; Pulse Ox 100% on R/A; Weight 107 kg; ha1 Height 5 ft. 5 in. (165.10 cm); Pain 10/10; 05:00 BP 151 / 125; Pulse 74; Resp 20 S; Pulse Ox 98% on R/A; ha1 06:00 BP 196 / 89; Pulse 76; Resp 18 S; Pulse Ox 98% on R/A; ha1 06:24 BP 195 / 89; Pulse 80; Resp 19; Pulse Ox 97% on R/A; ha1 07:00 BP 191 / 84; Pulse 80; Resp 18; Pulse Ox 98% on R/A; db 08:10 BP 147 / 80; Pulse 81; Resp 18; Temp 98.1(O); Pulse Ox 100% ; db 04:14 Body Mass Index 39.25 (107.00 kg, 165.10 cm) ha1 ED Course: 04:00 Patient arrived in ED. ag3 04:00 Arm band placed on right wrist. ha1 04:00 Patient has correct armband on for positive identification. Placed in gown. Bed in low ha1 position. Call light in reach. Side rails up X 1. 04:10 Jessica Serna RN is Primary Nurse. ha1 04:11 Ashvin Zuleta MD is Attending Physician. kdr 04:14 Triage completed. ha1 04:32 Inserted saline lock: 20 gauge in right antecubital area, using aseptic technique. rv1 Blood collected. 04:58 Abdomen In Process Unspecified. EDMS 05:51 Troponin High Sensitivity Sent. rv1 06:04 Troponin High Sensitivity Sent. rv1 08:10 No provider procedures requiring assistance completed. IV discontinued, intact, db bleeding controlled, DISCONTINUED PRIOR TO MY SHIFT. 08:10 Client placed on continuous cardiac and pulse oximetry monitoring. NIBP monitoring db applied. Warm blanket given. Administered Medications: 04:33 Drug: morphine 4 mg Route: IVP; Infused Over: 4 mins; Site: right antecubital; ha1 05:00 Follow up: Response: No adverse reaction; Pain is unchanged, physician notified; RASS: ha1 Alert and Calm (0) 04:35 Drug: Zofran (Ondansetron) 4 mg Route: IVP; Site: right antecubital; ha1 05:00 Follow up: Response: No adverse reaction ha1 04:36 Drug: Pepcid (famotidine) 20 mg Route: IVP; Site: right antecubital; ha1 05:00 Follow up: Response: No adverse reaction ha1 06:00 Drug: morphine 4 mg Route: IVP; Infused Over: 4 mins; Site: right antecubital; ha1 06:24 Follow up: Response: No adverse reaction; Pain is decreased; RASS: Alert and Calm (0) ha1 06:16 Not Given (Patient Refused): Insulin Regular Human 8 units IVP once ha1 07:59 Drug: [place] (HYDROcodone-acetaminophen) 10 mg-325 mg 1 tabs Route: PO; db 08:09 Follow up: Response: No adverse reaction db Medication: 08:10 VIS not applicable for this client. db Outcome: 07:40 Discharge ordered by . kdr 08:10 Discharged to home ambulatory, with family. db 08:10 Condition: stable 08:10 Discharge instructions given to patient, family, Instructed on discharge instructions, Prescriptions given X 1. 08:13 Patient left the ED. db Signatures: Dispatcher [employer] EDMS Ashvin Zuleta MD MD kdr Gomez, Alice 3 Jessica Serna RN RN 1 Khushboo Serrato RN RN db Nayana Herrera rv1 Corrections: (The following items were deleted from the chart) 06:22 06:00 BP 161 / 95; Pulse 100bpm; Resp 20bpm; Spontaneous; Pulse Ox 100% RA; ha1 ha1 06:23 06:00 BP 151 / 125; Pulse 74bpm; Resp 20bpm; Spontaneous; Pulse Ox 98% RA; ha1 ha1 06:25 06:25 Response: No adverse reaction; Pain is unchanged, physician notified; RASS: Alert ha1 and Calm (0) ha1
--- NOTE | 2022-04-21 07:41 | EDPHYS ---
Physician Documentation [facility] Name: Sherita Patel Age: 47 yrs Sex: Female : 1975 Arrival Date: 04/21/2022 Time: 04:00 Bed 19 Private MD: ED Physician Ashvin Zuleta HPI: 04/21 05:40 This 47 yrs old Female presents to ER via Ambulatory with complaints of Abdominal Pain. kdr 05:40 Patient complains of abdominal pain on the left side that she feels is getting worse. kdr Pain started yesterday. She is also having some nausea. She denies similar pain before. She denies any change in her bowel habits.. Onset: The symptoms/episode began/occurred yesterday. Severity of symptoms: At their worst the symptoms were moderate severe just prior to arrival, in the emergency department the symptoms have improved mildly. The patient has not experienced similar symptoms in the past. The patient has not recently seen a physician. 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 - Social history:: Smoking status: Patient/guardian denies using tobacco, the patient reports quitting approximately 2010 years ago. ROS: 05:40 Constitutional: Negative for fever, chills, and weight loss, Eyes: Negative for injury, kdr pain, redness, and discharge, ENT: Negative for injury, pain, and discharge, Neck: Negative for injury, pain, and swelling, Cardiovascular: Negative for chest pain, palpitations, and edema, Respiratory: Negative for shortness of breath, cough, wheezing, and pleuritic chest pain, Back: Negative for injury and pain, : Negative for injury, bleeding, discharge, and swelling, MS/Extremity: Negative for injury and deformity, Skin: Negative for injury, rash, and discoloration, Neuro: Negative for headache, weakness, numbness, tingling, and seizure activity. Psych: Negative for depression, anxiety, suicide ideation, homicidal ideation, and hallucinations, Allergy/Immunology: Negative for hives, rash, and allergies, Endocrine: Negative for neck swelling, polydipsia, polyuria, polyphagia, and marked weight changes, Hematologic/Lymphatic: Negative for swollen nodes, abnormal bleeding, and unusual bruising. 05:40 Abdomen/GI: Positive for abdominal pain, nausea, Negative for vomiting, diarrhea, constipation, abdominal cramps, abdominal distension, dysphagia, black/tarry stool, rectal pain, rectal bleeding, bowel incontinence. Exam: 05:40 Constitutional: This is a well developed, well nourished patient who is awake, alert, kdr and in no acute distress. Head/Face: Normocephalic, atraumatic. Eyes: Pupils equal round and reactive to light, extra-ocular motions intact. Lids and lashes normal. Conjunctiva and sclera are non-icteric and not injected. Cornea within normal limits. Periorbital areas with no swelling, redness, or edema. Neck: Trachea midline, no thyromegaly or masses palpated, and no cervical lymphadenopathy. Supple, full range of motion without nuchal rigidity, or vertebral point tenderness. No Meningismus. Chest/axilla: Normal chest wall appearance and motion. Nontender with no deformity. No lesions are appreciated. Cardiovascular: Regular rate and rhythm with a normal S1 and S2. No gallops, murmurs, or rubs. Normal PMI, no JVD. No pulse deficits. Respiratory: Lungs have equal breath sounds bilaterally, clear to auscultation and percussion. No rales, rhonchi or wheezes noted. No increased work of breathing, no retractions or nasal flaring. Back: No spinal tenderness. No costovertebral tenderness. Full range of motion. Skin: Warm, dry with normal turgor. Normal color with no rashes, no lesions, and no evidence of cellulitis. MS/ Extremity: Pulses equal, no cyanosis. Neurovascular intact. Full, normal range of motion. Neuro: Awake and alert, GCS 15, oriented to person, place, time, and situation. Cranial nerves II-XII grossly intact. Motor strength 5/5 in all extremities. Sensory grossly intact. Cerebellar exam normal. Normal gait. Psych: Awake, alert, with orientation to person, place and time. Behavior, mood, and affect are within normal limits. 05:40 Abdomen/GI: Inspection: Bowel sounds: diminished, in all quadrants, Palpation: soft, moderate abdominal tenderness, in the anterior aspect of left lateral abdomen, left upper quadrant and left lower quadrant, rebound tenderness, is not appreciated. Vital Signs: 04:14 BP 198 / 97; Pulse 79; Resp 16 S; Temp 98.1; Pulse Ox 100% on R/A; Weight 107 kg; ha1 Height 5 ft. 5 in. (165.10 cm); Pain 10/10; 05:00 BP 151 / 125; Pulse 74; Resp 20 S; Pulse Ox 98% on R/A; ha1 06:00 BP 196 / 89; Pulse 76; Resp 18 S; Pulse Ox 98% on R/A; ha1 06:24 BP 195 / 89; Pulse 80; Resp 19; Pulse Ox 97% on R/A; ha1 07:00 BP 191 / 84; Pulse 80; Resp 18; Pulse Ox 98% on R/A; db 08:10 BP 147 / 80; Pulse 81; Resp 18; Temp 98.1(O); Pulse Ox 100% ; db 04:14 Body Mass Index 39.25 (107.00 kg, 165.10 cm) ha1 MDM: 05:40 Data reviewed: vital signs, nurses notes, lab test result(s), radiologic studies. kdr 07:40 Patient medically screened. kdr 07:42 ED course: The patient had partial relief of her pain and was sleeping on my final kdr assessment. The patient refused treatment of her elevate blood sugar stating that the meds she had taken previously make her sugar go to low. The patient was scheduled to be at dialysis at 10:00 AM where should could get these issues further assessed. She did not show any clinical signs of DKA. 04/21 04:19 Order name: CBC with Diff; Complete Time: 05:34 kdr 04/21 04:19 Order name: CMP; Complete Time: 05:34 kdr 04/21 04:19 Order name: Lipase; Complete Time: 05:34 kdr 04/21 04:19 Order name: CT Abd/Pelvis - Without Contrast kdr 04/21 04:23 Order name: Abdomen EDMS 04/21 05:42 Order name: Troponin High Sensitivity; Complete Time: 07:34 kdr 04/21 04:19 Order name: IV Saline Lock; Complete Time: 04:37 kdr 04/21 04:19 Order name: Labs collected and sent; Complete Time: 04:37 kdr 04/21 04:19 Order name: Urine Dipstick-Ancillary (obtain specimen); Complete Time: 04:37 kdr 04/21 05:42 Order name: EKG - Nurse/Tech; Complete Time: 06:04 kdr Administered Medications: 04:33 Drug: morphine 4 mg Route: IVP; Infused Over: 4 mins; Site: right antecubital; ha1 05:00 Follow up: Response: No adverse reaction; Pain is unchanged, physician notified; RASS: ha1 Alert and Calm (0) 04:35 Drug: Zofran (Ondansetron) 4 mg Route: IVP; Site: right antecubital; ha1 05:00 Follow up: Response: No adverse reaction ha1 04:36 Drug: Pepcid (famotidine) 20 mg Route: IVP; Site: right antecubital; ha1 05:00 Follow up: Response: No adverse reaction ha1 06:00 Drug: morphine 4 mg Route: IVP; Infused Over: 4 mins; Site: right antecubital; ha1 06:24 Follow up: Response: No adverse reaction; Pain is decreased; RASS: Alert and Calm (0) ha1 06:16 Not Given (Patient Refused): Insulin Regular Human 8 units IVP once ha1 07:59 Drug: [place] (HYDROcodone-acetaminophen) 10 mg-325 mg 1 tabs Route: PO; db 08:09 Follow up: Response: No adverse reaction db Disposition Summary: 04/21/22 07:40 Discharge Ordered Location: Home kdr Problem: new kdr Symptoms: have improved kdr Condition: Stable kdr Diagnosis - Abdominal pain, Generalized kdr - Left flank pain kdr Followup: kdr - With: Private Physician - When: 2 - 3 days - Reason: If symptoms return, Further diagnostic work-up, Recheck today's complaints, Continuance of care, Re-evaluation by your physician Discharge Instructions: - Discharge Summary Sheet kdr - Abdominal Pain, Adult, [id number] kdr - Flank Pain, Adult, [id number] kdr Forms: - Medication Reconciliation Form kdr - Thank You Letter kdr - Prescription Opioid Use kdr Prescriptions: - Tylenol-Codeine #3 300 mg-30 mg Oral - take 1 tablet by ORAL route every 4-6 hours As needed; 12 tablet; Refills: 0, kdr Product Selection Permitted Signatures: Dispatcher [employer] Ashvin Dallas MD MD kdr Jessica Serna, RN RN ha1 Khushboo Serrato RN RN db
[2022-04-21] MEDS ORDERED: HYDROCODONE/APAP 10/325 TAB ONE (07:49)
[2022-04-21 08:38] VITALS: TEMP 98.1
[2022-04-21 08:44] VITALS: BP 147/80; O2SAT 100
--- NOTE | 2022-04-21 12:45 | RAD REPORT ---
EXAM DESCRIPTION: CT - Abdomen Pelvis Wo Contrast - 04/21/2022 6:58 am CLINICAL HISTORY: The patient is 47 years old and is Female; abdominal pain TECHNIQUE: Axial computed tomography images of the abdomen and pelvis without intravenous contrast. Sagittal and coronal reformatted images were created and reviewed. This CT exam was performed usi ng one or more of the following dose reduction techniques: automated exposure control, adjustment o f the mA and/or kV according to patient size, and/or use of iterative reconstruction technique. COMPARISON: CT of the abdomen and pelvis April 08, 2022 FINDINGS: LUNG BASES: Unremarkable. No mass. No consolidation. ABDOMEN: LIVER: Homogeneous without focal mass. GALLBLADDER AND BILE DUCTS: The gallbladder is contracted. PANCREAS: Unremarkable. No ductal dilation. SPLEEN: Unremarkable.. ADRENALS: Unremarkable. No mass. KIDNEYS AND URETERS: No obstructing stones. No hydronephrosis. No perinephric fluid. STOMACH AND BOWEL: The stomach is distended with food contents. The small bowel is relatively no rmal in caliber. Stool is present throughout colon. There is no mucosal thickening or evidence of obs truction. PELVIS: APPENDIX: No findings to suggest acute appendicitis. BLADDER: The bladder is not well distended. REPRODUCTIVE: The patient is status post hysterectomy. ABDOMEN and PELVIS: INTRAPERITONEAL SPACE: Unremarkable. No free air. No significant fluid collection. BONES/JOINTS: No acute fracture. SOFT TISSUES: A small fat-containing umbilical hernia is present. VASCULATURE: Atherosclerosis of the vasculature is present. The vessels are normal in caliber. No abdominal aortic aneurysm. LYMPH NODES: Unremarkable. No enlarged lymph nodes. IMPRESSION: No acute findings on this noncontrasted CT of the abdomen and pelvis to explain the sarah ent's symptoms. 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 The interpreting radiologist is fully responsible for the content of the report.
--- NOTE | 2022-04-21 17:31 | EKG ---
Test Date: 2022-04-21 Test Time: 06:01:41 Information Security Systems Instructor: RV MEASUREMENT RESULTS: Intervals: Rate: 75 GA: 168 QRSD: 88 QT: 444 QTc: 495 [place]: P: 64 GA: 168 QRS: -42 T: 35 INTERPRETIVE STATEMENTS: Normal sinus rhythm Left axis deviation Prolonged QT Abnormal ECG Compared to ECG 06/01/2018 15:53:11 Left-axis deviation now present Prolonged QT interval now present Electronically Signed On 04-21-22 17:30:33 PRINTED CIRCUIT BOARDS PINNER by Gunnar Cobian
== END 2022-04-21 08:13 | disposition home or self-care (01) ==
LOC: ER 03:56
DX: R10.84 Generalized abdominal pain (principal); R10.9 Unspecified abdominal pain; E11.22 Type 2 diabetes mellitus with diabetic chronic kidney disease; N18.30 Chronic kidney disease, stage 3 unspecified; Z91.013 Allergy to seafood
CPT/HCPCS: 93005; 85025; 36415; 84484; 83690; 80053; 74176; J1815; J2405; 96374; 96375; 99284

== ENCOUNTER 2023-02-16 12:09 | Emergency (ER) | payer OTHER ==
--- OUTSIDE RECORDS SUMMARY | 2023-02-16 12:16 | XMS REPORT | Continuity of Care Document ---
:1975 Author Organization [facility] t Address [address] [place] [address] Care Team Providers Name Role Phone Asked, No Pcp Primary Care Physician Unavailable ROBERT SILVA Attending Clinician Unavailable [place] TIMMONS Attending Clinician Unavailable [email or web address] Attending Clinician Unavailable Radiology Attending Clinician Unavailable RADIOLOGY Attending Clinician Unavailable Doctor Unassigned, Petal Attending Clinician Unavailable ANIYAH CORDON Attending Clinician Unavailable SOFIYA VALADEZ Attending Clinician Unavailable KYLER ABDALLA Attending Clinician Unavailable Kyler Abdalla MD Attending Clinician Esteban_Ninfa Attending Clinician Unavailable Nena HANSON, Raegan Dawkins Attending Clinician [phone] ZENON APODACA Attending Clinician Unavailable MD TAVO PRINGLE Attending Clinician Unavailable TAVO PRINGLE Attending Clinician Unavailable Moisés Swain Attending Clinician Unavailable Emmanuel HANSON, Aniyah Attending Clinician RAEGAN TRIPP Attending Clinician Unavailable Nurse, [facility] Attending Clinician Unavailable Allyson HANSON, Sofiya Ocasio Attending Clinician Sharon Mayers MD Attending Clinician [...] Clinician Unavailable [place] TIMMONS Admitting Clinician Unavailable [email or web address]_S Admitting Clinician Unavailable Maryana Admitting Clinician Unavailable ZENON APODACA Admitting Clinician Unavailable MD TAVO PRINGLE Admitting Clinician Unavailable Moisés Swain Admitting Clinician Unavailable ANNA LO Admitting Clinician Unavailable MD ANNA LO Admitting Clinician Unavailable NICOLETTE YUN Admitting Clinician Unavailable EDUARDO JOHNSTON Admitting Clinician Unavailable THOMAS NINO Admitting Clinician Unavailable Payers Payer Name Policy Type Policy Number Effective Date Expiration Date S ource [facility] WELLMED [id number] 2020 00:00:00 [facility] DUAL [id number] 2020 COMP HMO D SNP 00:00:00 [facility] [id number] 2014 00:00:00 MEDICARE PART A \\T\\ [id number] 2011 B 00:00:00 [place] [id number] 2018 00:00:00 [employer] - [id number] [address] [facility] 00:00:00 (MEDICARE REPLACEMENT/ADVANTA GE - HMO) [facility] - [id number] DUAL COMPLETE - DUAL ELIGIBLE - SNP (MEDICARE-MEDICAID REPLACEMENT HMO) Problems Condition Condition Condition Status Onset Resolution Last Treating Co mments Source Name Details Category Date Date Treatment Clinician Date Obesity Obesity Problem Active 2020-04 [place] 0-27 da 00:00: Medical 00 Group Essential Essential Problem Active 2020-04 [place] hypertensi Hypertensi 0-27 da on on 00:00: Medical 00 Group Primary Primary Problem Active 2020-04 [place] dysmenorrh Dysmenorrh 0-27 da ea ea 00:00: Medical 00 Group Menorrhagi Menorrhagi Problem Active 2020-04 M [place] a a 0-27 da 00:00: Medical 00 Group End stage End Stage Problem Active 2020-04 [place] renal Renal 0-27 da disease on Disease on 00:00: Me dical dialysis Dialysis 00 Group due to Due to type 2 Type 2 diabetes Diabetes mellitus Mellitus Bronchitis Bronchitis Disease Active U nivers 8-02 ity of 00:00: [place] 00 Medical Branch ESRD ESRD Disease Active Overview: Univer s needing needing 05-04 Formattin ity o f dialysis dialysis 00:00: g of this Jez as 00 note Medical might be Branch different from the original. Added automatic ally from request for surgery [id number] Troponin I Troponin I Disease Active U [...] [place] failure y failure 00 [facility] abner with with Branch hypoxia hypoxia Pleural Pleural Disease Active Univers effusion effusion 8-10 ity of on right on right 00:00: [place] 00 Medical Branch NSVT NSVT Disease Active Univers (nonsustai (nonsustai 7-21 it y of kayla kayla 00:00: [place] ventricula ventricula 00 Me dical r r Branch tachycardi tachycardi a) a) ESRD on ESRD on Disease Active Overview: Meth leonardo hemodialys hemodialys 5-[address] is is 00:00: g of this Hospita 00 note l might be different from the original. Added automatic ally from request for surgery [id number] Benign Benign Disease Active Univers hypertensi hypertensi [...] Hypoalbumi Disease Active U nivers nemia nemia 4-29 ity of 00:00: [place] 00 Medical Branch Hypokalemi Hypokalemi Disease Active U nivers a a 4-29 ity of 00:00: [place] 00 Medical Branch Localized Localized Disease Active Uni vers edema due edema due 4-29 ity of to fluid to fluid 00:00: [place] overload overload 00 Medica l Branch Nephrogeno Nephrogeno Disease Active U nivers [facility] 4-29 ity of proteinuri proteinuri 00:[place] a a 00 Medical Branch PD PD Disease Active Overview: Univer s catheter catheter 4-21 Formattin ity of dysfunctio dysfunctio 00:00: g of this [place] n, initial n, initial 00 note Me dical encounter encounter might be Br anch different from the original. Added automatic ally from request for surgery [id number] ESRD (end ESRD (end Disease Active Uni vers stage stage 3-18 ity of renal renal 00:00: [place] disease) disease) 00 Medica l on on Branch dialysis dialysis ANASARCA, ANASARCA, Diagnosis Active 2018-042019-02-21 Charu CKD CKD Active 04-06 21:43:00 l 02/04/2019 04:06: Valdo jim [facility] 00 [place] CHF CHF Diagnosis Active 2018-042019-02-04 Mem oria Active 04-06 08:53:00 l 02/04/2019 04:06: Valdo jim [facility] 00 [place] Menorrhagi Menorrhagi Disease Active U nivers a with a with 6-19 ity of irregular irregular 00:00[place] cycle cycle 00 [place] JOSEFA on JOSEFA on Disease Active [facility] CPAP CPAP 5-04 ity of 00:00: [place] [facility] Anemia Anemia Disease Active Univers 5- ity of 00:00: [place] [facility] Acute on Acute on Disease Active Unive rs chronic chronic 08-05 ity of diastolic diastolic 00:00: [place] CHF CHF 00 Medical (congestiv (congestiv Br anch e heart e heart failure), failure), NYHA class NYHA class 3 3 SHWETHA (acute SHWETHA (acute Disease Recurre [facility]) injury) 00:00: Medical [facility] Center Syncope Syncope Disease Active [facility] History of History of Disease Active U nivers pulmonary pulmonary 08-04 ity of embolism embolism 00:00: [place] 00 Medical Branch Essential Essential Disease Active Uni [...] deficiency 1-17 it y of 00:00: [place] 00 Medical Branch Albuminuri Albuminuri Disease Active 2014-04 U nivers a a 1-17 ity of 00:00: [place] [address] Medical Branch Abnormal Abnormal Disease Active 2014-04 Overview: Un juan antonio uterine uterine 04-22 Formattin ity o f bleeding bleeding 00:00: g of this [place] 00 note Medical might be Branch different from the original. 09/22/18 - EMB benign HLD HLD Disease Active Univers (hyperlipi (hyperlipi -15 it y of demia) demia) 00:00: [place] [facility] Metabolic Metabolic Disease Active Uni vers syndrome X syndrome X -15 it y of 00:00: [place] [address] Medical Branch GENERALIZE GENERALIZ Diagnosis [facility] ED EDEMA 21:43:00 l Active [facility] CHRONIC CHRONIC Diagnosis Active 2019-02-21 [facility] KIDNEY KIDNEY 21:43:00 l DISEASE, DISEASE, Valdo n UNSPECIFIE UNSPECIFIE D D Active [facility] ACUTE ON ACUTE ON Diagnosis Active 2019-02-04 [facility] CHRONIC CHRONIC 08:53:00 l DIASTOLIC DIASTOLIC Herm david (CONGESTIV (CONGESTIV E) E) Active [facility] Allergies, Adverse Reactions, Alerts Allergy Allergy Status Severity Reaction(s) Onset Inactive Treating Comm ents Source Name Type Date Date Clinician Sulfa Propensi Active Itching 2020-0 Univers (Sulfona ty to 6-04 ity of mide adverse 00:00: [place] Antibiot reaction 00 Medica l ics) s Branch SULFA Drug Active Low ITCHING 2020-0 Univers (SULFONA Class 6-04 ity of MIDE 00:00: [place] ANTIBIOT 00 Medical ICS) Branch Shellfis Propensi Active Itching 2019- Metho di h ty to 6 st Derived adverse 00:00: Hospita reaction 00 l s to drug shellfis DA [facility] 12[facility] Clear derived 00:[facility]: [address] shellfis FA Active [facility] 12-04 West derived 00:00: [address] Iodine Propensi Active Itching Univers And ty to 11-01 ity of Iodide adverse 00:00: [place] Containi reaction 00 Medica l ng s Branch Products IODINE DRUG Active ITCHING Univers INGREDI 11-01 ity of 00:00: [place] [address] Medical Branch IODINE Drug Active ITCHING Univers AND Class 7-29 ity of IODIDE 00:00: [place] CONTAINI 00 Medical NG Branch PRODUCTS Iodine Propensi Active Itching Univers And ty to 7 ity of Iodide adverse 00:00: [place] Containi reaction 00 Medica l ng s Branch Products Iodine Propensi Active Itching Univers ty to 11-01 ity of adverse 00:00: [place] reaction 00 Medical s Branch SHELLFIS Allergy Active Itching [place] [facility] to da DERIVED substanc Medical e Group Family History Family Member Diagnosis Comments Start Date Stop Date Source Natural father Hy[facility] Natural mother Depression [facility] [place] [facility] Natural mother Hypertension [facility] [place] [facility] Social History Social Habit Start Date Stop Date Quantity Comments Source History SDOH [facility] Alcohol Std Drinks Medica l Center History SDOH [facility] Alcohol Binge Medical [facility] History of tobacco Cigarette Smoker University of use [facility] Sexual orientation [facility] Exposure to 2021-08-05 2021-08-15 Not sure University of SARS-CoV-2 (event) 00:00:00 09:46:00 [facility] Cigarettes smoked 2020-02-06 2020-02-06 Univers ity of current (pack per 00:00:00 00:00:00 ) - Reported Branch Cigarette 2020-02-06 2020-02-06 University of pack-years 00:00:00 00:00:00 [facility] Tobacco use and 2020-02-06 2020-02-06 Smokeless tobacco Un iversity of exposure 00:00:00 00:00:00 non-user [facility] Tobacco Comment 2020-02-06 2020-02-06 quit in 1995, Jesus Manuel george of 00:00:00 00:00:00 restarted 2014, [place] Med ical then quit again. Branch smoked on and off since 14 years old History of Social 2019-09-14 2019-09-[address] function 00:00:00 00:00:00 Hospital Alcohol Comment 2019-09-08 2019-09-[address] 00:00:00 00:00:00 Hospital Education 2018-12-17 2018-12-17 21 University of 00:00:00 00:00:00 [facility] History SDOH 2018-12-17 2018-12-17 5 University o f Financial 00:00:00 00:00:00 [place] [facility] History SDAK Food 2018-12-17 2018-12-17 1 Univers ity of Worry 00:00:00 00:00:00 [place] [facility] History SDAK Food 2018-12-17 2018-12-17 1 Univers ity of Scarcity 00:00:00 00:00:00 [place] [facility] History SDAK 2018-12-17 2018-12-17 2 University o f Transport Med 00:00:00 00:00:00 [place] Medic al Branch History [facility] 2018-12-17 2018-12-17 2 University o f Transport Non-Med 00:00:00 00:00:00 [place] M edical Branch History [facility] 2018-04-24 2018-04-[address] [facility] Alcohol Frequency 00:00:00 00:00:00 Medical [place] Alcohol intake 2018-04-24 2018-04-24 Current non-drinker [facility] 00:[facility]finding[facility] Sex Assigned At [address] [facility] 00:00[facility]00 00[facility]00 [facility] Smoking Status Start Date Stop Date Source Ex-smoker 2020-02-06 00:00:00 2020-02-06 00:00:00 [facility] Medications Ordered Filled Start Stop Current Ordering Indication Dosage Frequency Signature Comments Components Source Medication Medication Date Date Medication? Clinician (SIG) Name Name medroxyPROG 1-0 Yes [id number] 150mg Univers ESTERone 8-12 ity of (DEPO-PROVE 15:15: [place] RA) syringe 00 Medical 150 mg Branch medroxyPROG 1-0 Yes [id number] 150mg Univers ESTERone 8-12 ity of (DEPO-PROVE 15:15: [place] RA) syringe 00 Medical 150 mg Branch medroxyPROG 2021-0 Yes [id number] 150mg Univers ESTERone 8-12 ity of (DEPO-PROVE 15:15: [place] RA) syringe 00 Medical 150 mg Branch medroxyPROG 1-0 Yes [id number] 150mg Univers ESTERone 8-12 ity of (DEPO-PROVE 15:15: [place] RA) syringe 00 Medical 150 mg Branch medroxyPROG 2021-0 Yes [id number] 150mg Univers ESTERone 8-12 ity of (DEPO-PROVE 15:15: [place] RA) syringe 00 Medical 150 mg Branch medroxyPROG Yes [id number] 150mg Univers ESTERone 8-12 ity of (DEPO-PROVE 15:15: [place] RA) syringe 00 Medical 150 mg Branch medroxyPROG Yes [id number] 150mg Univers ESTERone 8-12 ity of (DEPO-PROVE 15:15: [place] RA) syringe 00 Medical 150 mg Branch montelukast Yes 10mg Take 10 mg Univers 10 mg 5-28 by mouth ity of tablet 00:00: daily. Medical Branch montelukast Yes 10mg Take 10 mg Univers 10 mg 5-28 by mouth ity of tablet 00:00: daily. [facility] Branch montelukast Yes 10mg Take 10 mg Univers 10 mg 5-28 by mouth ity of tablet 00:00: daily. [facility] montelukast Yes 10mg Take 10 mg Univers 10 mg 5-28 by mouth ity of tablet 00:00: daily. [facility] montelukast Yes 10mg Take 10 mg Univers 10 mg 5-28 by mouth ity of tablet 00:00: daily. [facility] montelukast Yes 10mg Take 10 mg Univers 10 mg 5-28 by mouth ity of tablet 00:00: daily. [facility] montelukast Yes 10mg Take 10 mg Univers 10 mg 5-28 by mouth ity of tablet 00:00: daily. [facility] insulin Yes [id number] INJECT 10 U nivers lispro 2-25 TO 15 ity of (HUMALOG 00:00: UNITS [place] KWIKPEN 00 SUBCUTANEO Medica l INSULIN) USLY THREE Branc h 100 unit/mL TIMES pen DAILY injector NEEDED IF SUGARS ARE OVER 200 Insulin Yes [id number] Take 10 Uni vers Glargine 2-25 units once ity o f (LANTUS 00:00: daily if [place] SOLOSTAR 00 blood Medical U-100 sugars are Branch INSULIN) over 180 100 unit/mL in (3 mL) morning. injection insulin Yes [id number] INJECT 10 U nivers lispro 2-25 TO 15 ity of (HUMALOG 00:00: UNITS [place] KWIKPEN 00 SUBCUTANEO Medica l INSULIN) USLY THREE Branc h 100 unit/mL TIMES pen DAILY injector NEEDED IF SUGARS ARE OVER 200 Insulin Yes [id number] Take 10 Uni vers Glargine 2-25 units once ity o f (LANTUS 00:00: daily if [place] SOLOSTAR 00 blood Medical U-100 sugars are Branch INSULIN) over 180 100 unit/mL in (3 mL) morning. injection insulin Yes [id number] INJECT 10 U nivers lispro 2-25 TO 15 ity of (HUMALOG 00:00: UNITS [place] KWIKPEN 00 SUBCUTANEO Medica l INSULIN) USLY THREE Branc h 100 unit/mL TIMES pen DAILY injector NEEDED IF SUGARS ARE OVER 200 Insulin Yes [id number] Take 10 Uni vers Glargine 2-25 units once ity o f (LANTUS 00:00: daily if [place] SOLOSTAR 00 blood Medical U-100 sugars are Branch INSULIN) over 180 100 unit/mL in (3 mL) morning. injection insulin Yes [id number] INJECT 10 U nivers lispro 2-25 TO 15 ity of (HUMALOG 00:00: UNITS [place] KWIKPEN 00 SUBCUTANEO Medica l INSULIN) USLY THREE Branc h 100 unit/mL TIMES pen DAILY injector NEEDED IF SUGARS ARE OVER 200 Insulin Yes [id number] Take 10 Uni vers Glargine 2-25 units once ity o f (LANTUS 00:00: daily if [place] SOLOSTAR 00 blood Medical U-100 sugars are Branch INSULIN) over 180 100 unit/mL in (3 mL) morning. injection insulin Yes [id number] INJECT 10 U nivers lispro 2-25 TO 15 ity of (HUMALOG 00:00: UNITS [place] KWIKPEN 00 SUBCUTANEO Medica l INSULIN) USLY THREE Branc h 100 unit/mL TIMES pen DAILY injector NEEDED IF SUGARS ARE OVER 200 Insulin Yes [id number] Take 10 Uni vers Glargine 2-25 units once ity o f (LANTUS 00:00: daily if [place] SOLOSTAR 00 blood Medical U-100 sugars are Branch INSULIN) over 180 100 unit/mL in (3 mL) morning. injection insulin Yes [id number] INJECT 10 U nivers lispro 2-25 TO 15 ity of (HUMALOG 00:00: UNITS [place] KWIKPEN 00 SUBCUTANEO Medica l INSULIN) USLY THREE Branc h 100 unit/mL TIMES pen DAILY injector NEEDED IF SUGARS ARE OVER 200 Insulin Yes [id number] Take 10 Uni vers Glargine 2-25 units once ity o f (LANTUS 00:00: daily if [place] SOLOSTAR 00 blood Medical U-100 sugars are Branch INSULIN) over 180 100 unit/mL in (3 mL) morning. injection insulin Yes [id number] INJECT 10 U nivers lispro 2-25 TO 15 ity of (HUMALOG 00:00: UNITS [place] KWIKPEN 00 SUBCUTANEO Medica l INSULIN) USLY THREE Branc h 100 unit/mL TIMES pen DAILY injector NEEDED IF SUGARS ARE OVER 200 Insulin Yes [id number] Take 10 Uni vers Glargine 2-25 units once ity o f (LANTUS 00:00: daily if [place] SOLOSTAR 00 blood Medical U-100 sugars are Branch INSULIN) over 180 100 unit/mL in (3 mL) morning. injection [id number] 50 2020-0 Yes [id number] 50mg Take [...] Indication s: acute pain flash 2019-04 Yes [id number] 1{each} 1 Each 2 U nivers glucose 1-02 (two) ity of scanning 00:00: times [place] reader 00 daily Medical (FREESTYLE before Branch NAEEM 2 breakfast READER) and Misc dinner. flash 2019-04 Yes [id number] 1{each} 1 Each 2 U nivers glucose 1-02 (two) ity of scanning 00:00: times [place] reader 00 daily Medical (FREESTYLE before Branch NAEEM 2 breakfast READER) and Misc dinner. flash 2019-04 Yes [id number] 1{each} 1 Each 2 U nivers glucose 1-02 (two) ity of scanning 00:00: times [place] reader 00 daily Medical (FREESTYLE before Branch NAEEM 2 breakfast READER) and Misc dinner. flash 2019-04 Yes [id number] 1{each} 1 Each 2 U nivers glucose 1-02 (two) ity of scanning 00:00: times [place] reader 00 daily Medical (FREESTYLE before Branch NAEEM 2 breakfast READER) and Misc dinner. flash 2019-04 Yes [id number] 1{each} 1 Each 2 U nivers glucose 1-02 (two) ity of scanning 00:00: times [place] reader 00 daily Medical (FREESTYLE before Branch NAEEM 2 breakfast READER) and Misc dinner. flash 2020-1 Yes [id number] 1{each} 1 Each 2 U nivers glucose 1-02 (two) ity of scanning 00:00: times [place] reader 00 daily Medical (FREESTYLE before Branch NAEEM 2 breakfast READER) and Misc dinner. flash 2020-1 Yes [id number] 1{each} 1 Each 2 U nivers glucose 1-02 (two) ity of scanning 00:00: times [place] reader 00 daily Medical (FREESTYLE before Branch NAEEM 2 breakfast READER) and Misc dinner. albuterol 2020-0 Yes 2{puff} Q6H Inhale 2 M ethodi [...] mcg/actuati day. on inhaler insulin 2020-0 Yes [id number] Inject Me thodi ASPART 8-[id number] (NovoLOG) 10:41: 3D skin 3 Hospit a 100 unit/mL 58 (three) l injection times a day before meals. cholecalcif 2020-0 Yes [id number] QD Take 2,000 Methodi ninoska, 8-[address] vitamin D3, 10:41: mouth Hospi ta (Vitamin 58 daily. l D3) 50 mcg (2,000 unit) capsule capsule ergocalcife 2020-0 Yes [id number] Q7D Take Meth leonardo rol 8-20 50,000 [address] (VITAMIN 10:41: Units by Hospi ta D2) 50,000 58 mouth once l unit a week. capsule albuterol 2020-0 Yes 2{puff} Q6H Inhale 2 M ethodi (PROAIR 8-[address] HFA) 90 10:41: every 6 Hospita mcg/actuati 58 (six) l on inhaler hours as needed for wheezing. insulin 2020-0 Yes QD Inject Methodi glargine,hu 8-[address] .rec.anlog 10:41: skin Hospit a (TOUJEO 58 daily. [...] mcg/actuati day. on inhaler insulin 2020-0 Yes [id number] Inject Me thodi ASPART 8-[id number] (NovoLOG) 10:41: 3D skin 3 Hospit a 100 unit/mL 58 (three) l injection times a day before meals. cholecalcif 2020-0 Yes [id number] QD Take 2,000 Methodi ninoska, 8-[address] vitamin D3, 10:41: mouth Hospi ta (Vitamin 58 daily. l D3) 50 mcg (2,000 unit) capsule capsule ergocalcife 2020-0 Yes [id number] Q7D Take Meth leonardo rol 8-20 50,000 st (VITAMIN 10:41: Units by Hospi ta D2) 50,000 58 mouth once l unit a week. capsule albuterol 2020-0 Yes 2{puff} Q6H Inhale 2 M ethodi [...] mcg/actuati day. on inhaler insulin 2020-0 Yes [id number] Inject Me thodi ASPART 8-[id number] (NovoLOG) 10:41: 3D skin 3 Hospit a 100 unit/mL 58 (three) l injection times a day before meals. cholecalcif 2020-0 Yes [id number] QD Take 2,000 Methodi ninoska, 8-[address] vitamin D3, 10:41: mouth Hospi ta (Vitamin 58 daily. l D3) 50 mcg (2,000 unit) capsule capsule ergocalcife 2020-0 Yes [id number] Q7D Take Meth leonardo rol 8-20 50,000 st (VITAMIN 10:41: Units by Hospi ta D2) 50,000 58 mouth once l unit a week. capsule ipratropium 2020-0 Yes [id number] .5mg Inhale 2.5 Univers 0.02 % 8-03 mL every 6 ity of nebulizer 00:00: (six) [place] solution 00 hours as Medical needed for Branch Wheezing or Shortness of Breath. ipratropium 2020-0 Yes [id number] .5mg Inhale 2.5 Univers 0.02 % 8-03 mL every 6 ity of nebulizer 00:00: (six) [place] solution 00 hours as Medical needed for Branch Wheezing or Shortness of Breath. ipratropium 2020-0 Yes [id number] .5mg Inhale 2.5 Univers 0.02 % 8-03 mL every 6 ity of nebulizer 00:00: (six) [place] solution 00 hours as Medical needed for Branch Wheezing or Shortness of Breath. ipratropium 2020-0 Yes [id number] .5mg Inhale 2.5 Univers 0.02 % 8-03 mL every 6 ity of nebulizer 00:00: (six) [place] solution 00 hours as Medical needed for Branch Wheezing or Shortness of Breath. ipratropium 2020-0 Yes [id number] .5mg Inhale 2.5 Univers 0.02 % 8-03 mL every 6 ity of nebulizer 00:00: (six) [place] solution 00 hours as Medical needed for Branch Wheezing or Shortness of Breath. ipratropium 2020-0 Yes [id number] .5mg Inhale 2.5 Univers 0.02 % 8-03 mL every 6 ity of nebulizer 00:00: (six) [place] solution 00 hours as Medical needed for Branch Wheezing or Shortness of Breath. ipratropium 2020-0 Yes [id number] .5mg Inhale 2.5 Univers 0.02 % 8-03 mL every 6 ity of nebulizer 00:00: (six) [place] solution 00 hours as Medical needed for Branch Wheezing or Shortness of Breath. HYDROcodone 2020-0 Yes [id number] 1{tbl} Q6H Take 1 M ethodi -acetaminop 6-[address] hen ([place]) 00:00: mouth Hospi ta 5-325 mg 00 every 6 l per tablet (six) hours as needed for moderate pain for up to 5 days .acute pain. Max Daily Amount: 4 tablets HYDROcodone 2020-0 Yes [id number] 1{tbl} Q6H Take 1 M ethodi -acetaminop 6-[address] hen ([place]) 00:00: mouth Hospi ta 5-325 mg 00 every 6 l per tablet (six) hours as needed for moderate pain for up to 5 days .acute pain. Max Daily Amount: 4 tablets HYDROcodone 2020-0 Yes 1{tbl} Take 1 Un [...] tablet 00 Medical Branch HYDROcodone 2020-0 Yes [id number] 1{tbl} Q6H Take 1 M ethodi -acetaminop 6-[address] hen ([place]) 00:00: mouth Hospi ta 5-325 mg 00 every 6 l per tablet (six) hours as needed for moderate pain for up to 5 days .acute pain. Max Daily Amount: 4 tablets atorvastati 2020-0 Yes 40mg QD Take 40 mg Methodi n (LIPITOR) 4-[address] 40 mg 00:00: daily. Hospita tablet 00 l atorvastati 2020-0 Yes 40mg QD Take 40 mg Methodi n (LIPITOR) 4-[address] 40 mg 00:00: daily. Hospita tablet 00 l atorvastati 2020-0 Yes [id number] 40mg Take 1 Univers n 40 mg 4-01 tablet by ity of tablet 00:00: mouth [place] 00 daily. Medical Branch atorvastati 2020-0 Yes [id number] 40mg Take 1 Univers n 40 mg 4-01 tablet by ity of tablet 00:00: mouth [place] 00 daily. Medical Branch atorvastati 2020-0 Yes [id number] 40mg Take 1 Univers n 40 mg 4-01 tablet by ity of tablet 00:00: mouth [place] 00 daily. Medical Branch atorvastati 2020-0 Yes [id number] 40mg Take 1 Univers n 40 mg 4-01 tablet by ity of tablet 00:00: mouth [place] 00 daily. Medical Branch atorvastati 2020-0 Yes [id number] 40mg Take 1 Univers n 40 mg 4-01 tablet by ity of tablet 00:00: mouth [place] 00 daily. Medical Branch atorvastati 2020-0 Yes [id number] 40mg Take 1 Univers n 40 mg 4-01 tablet by ity of tablet 00:00: mouth [place] 00 daily. Medical Branch atorvastati 2020-0 Yes [id number] 40mg Take 1 Univers n 40 mg 4-01 tablet by ity of tablet 00:00: mouth [place] 00 daily. Medical Branch atorvastati 2019-0 Yes 40mg QD Take 40 mg Methodi n (LIPITOR) 4-[address] 40 mg 00:00: daily. Hospita tablet 00 l insulin 2020-0 Yes Inject Methodi lispro 3-[address] (HumaLOG 00:00: skin as Hospit a U-100 00 needed. l Insulin) 100 unit/mL injection insulin 2020-0 Yes Inject Methodi lispro 3-[address] (HumaLOG 00:00: skin as Hospit a U-100 00 needed. l Insulin) 100 unit/mL injection insulin 2020-0 Yes Inject Methodi lispro 3-[address] (HumaLOG 00:00: skin as Hospit a U-100 00 needed. l Insulin) 100 unit/mL injection Insulin 2020-0 Yes [id number] Use 4 Unive rs [place], 1-16 times ity of Disposable, 00:00: daily with [place] (BD INSULIN 00 Levemir Medic al PEN NEEDLE and Branch UF) 31 Humalog gauge x 5/16" Ndle Insulin 2020-0 Yes [id number] Use 4 Unive rs [place], 1-16 times ity of Disposable, 00:00: daily with [place] (BD INSULIN 00 [facility] PEN NEEDLE and Branch UF) 31 Humalog gauge x 5/16" Ndle Insulin 2020-0 Yes [id number] Use 4 Unive rs [place], 1-16 times ity of Disposable, 00:00: daily with [place] (BD INSULIN 00 [facility] PEN NEEDLE and Branch UF) 31 Humalog gauge x 5/16" Ndle Insulin 2020-0 Yes [id number] Use 4 Unive rs [place], 1-16 times ity of Disposable, 00:00: daily with [place] (BD INSULIN 00 [facility] PEN NEEDLE and Branch UF) 31 Humalog gauge x 5/16" Ndle Insulin 2020-0 Yes [id number] Use 4 Unive rs [place], 1-16 times ity of Disposable, 00:00: daily with [place] (BD INSULIN 00 [facility] PEN NEEDLE and Branch UF) 31 Humalog gauge x 5/16" Ndle Insulin 2020-0 Yes [id number] Use 4 Unive rs [place], 1-16 times ity of Disposable, 00:00: daily with [place] (BD INSULIN 00 [facility] PEN NEEDLE and Branch UF) 31 Humalog gauge x 5/16" Ndle Insulin 2020-0 Yes [id number] Use 4 Unive rs [place], 1-16 times ity of Disposable, 00:00: daily [...] TABLET BY ity of tablet 00:00: MOUTH [place] 00 EVERY 24 Medical HOURS Branch NEEDED FOR ANXIETY LORazepam Yes TAKE 1 Univer s 0.5 mg 1-08 TABLET BY ity of tablet 00:00: MOUTH [place] 00 EVERY 24 Medical HOURS Branch NEEDED FOR ANXIETY albuterol Yes [id number] 2.5mg Inhale 0.5 Univers 2.5 mg/0.5 9-23 mL every 6 ity of mL 00:00: (six) [place] nebulizer 00 hours as Medica l solution needed for Branc h Wheezing. albuterol Yes [id number] 2.5mg Inhale 0.5 Univers 2.5 mg/0.5 9-23 mL every 6 ity of mL 00:00: (six) [place] nebulizer 00 hours as Medica l solution needed for Branc h Wheezing. albuterol Yes [id number] 2.5mg Inhale 0.5 Univers 2.5 mg/0.5 9-23 mL every 6 ity of mL 00:00: (six) [place] nebulizer 00 hours as Medica l solution needed for Branc h Wheezing. albuterol Yes [id number] 2.5mg Inhale 0.5 Univers 2.5 mg/0.5 9-23 mL every 6 ity of mL 00:00: (six) [place] nebulizer 00 hours as Medica l solution needed for Branc h Wheezing. albuterol Yes [id number] 2.5mg Inhale 0.5 Univers 2.5 mg/0.5 9-23 mL every 6 ity of mL 00:00: (six) [place] nebulizer 00 hours as Medica l solution needed for Branc h Wheezing. albuterol Yes [id number] 2.5mg Inhale 0.5 Univers 2.5 mg/0.5 9-23 mL every 6 ity of mL 00:00: (six) [place] nebulizer 00 hours as Medica l solution needed for Branc h Wheezing. albuterol Yes [id number] 2.5mg Inhale 0.5 Univers 2.5 mg/0.5 9-23 mL every 6 ity of mL 00:00: (six) [place] nebulizer 00 hours as Medica l solution needed for Branc h Wheezing. pantoprazol Yes 40mg QD Take 40 mg [facility] (PROTONIX) 00:00: daily. Hospi ta 40 MG EC 00 l tablet pantoprazol Yes 40mg QD Take 40 mg [facility] (PROTONIX) 00:00: daily. Hospi ta 40 MG EC 00 l tablet pantoprazol Yes 40mg QD Take 40 mg [facility] 4[facility] (PROTONIX) 00:00: daily. Hospi ta 40 MG EC 00 l tablet BUMETanide Yes 2mg Q.5D Take 2 mg [facility] (BUMEX) 1 3-[address] MG tablet 00:00: (two) Hospita 00 times a l day. 6 mg bid BUMETanide Yes 2mg Q.5D Take 2 mg [facility] (BUMEX) 1 3-[address] MG tablet 00:00: (two) Hospita 00 times a l day. 6 mg bid BUMETanide Yes 2mg Q.5D Take 2 mg [...] (six) hours as needed for Wheezing. hydrALAZINE 0 Yes 50mg Take [address] [facility] (APRESOLINE 1-31 by mouth Luke s ) 50 MG 01:47: every 6 Medical tablet 32 (six) Center hours. spironolact Yes 25mg Take [address] [facility] one 1-31 by mouth. [facility] (ALDACTONE) 01:47: Medica l 25 MG 32 Center tablet mometasone Yes 2{spray [address] [facility] (NASONEX) 1-31 } by Nasal [facility] 50 01:47: route. Medical mcg/actuati 32 Center on nasal spray insulin 2018- Yes type [address] [facility] lispro 1-31 diabetes subcutaneo Lul es (HUMALOG) 01:47: mellitus usly 3 Me dical 100 unit/mL 32 (three) Cente r injection times daily before meals. insulin 0 Yes QD Inject [facility] glargine 1-31 subcutaneo [facility] (LANTUS) 01:47: usly Medical 100 unit/mL 32 nightly Cente r injection Use as directed . metoprolol 0 Yes hypertensio 100mg Q.5D Take [address] [facility] (LOPRESSOR) 1-31 n mg by [facility] 100 MG 01:47: mouth 2 Medical tablet 32 (two) Center times daily. albuterol 0 Yes 2{puff} Inhale [address] HFA 1-31 puffs by [facility] (VENTOLIN 01:47: mouth via Med ical HFA) 90 32 inhaler Center mcg/actuati every 6 on inhaler (six) hours as needed for Wheezing. hydrALAZINE 0 Yes 50mg Take [address] [facility] (APRESOLINE 1-31 by mouth Luke s ) 50 MG 01:47: every 6 Medical tablet 32 (six) Center hours. spironolact 0 Yes 25mg Take [address] [facility] one 1-31 by mouth. [facility] (ALDACTONE) 01:47: Medica l 25 MG 32 Center tablet mometasone 0 Yes 2{spray [address] [facility] (NASONEX) 1-31 } by Nasal [facility] 50 01:47: route. Medical mcg/actuati 32 Center on nasal spray insulin Yes type [address] [facility] [...] solution mupirocin Yes Apply [facility] (BACTROBAN) 1-30 affected Luke s 2 % 00:00: area Medical ointment 00 daily. Center povidone-io Yes Apply [facility] 1-30 affected [facility] (BETADINE) 00:00: area as Medi abner 10 % 00 needed. Center external solution mupirocin Yes Apply [facility] (BACTROBAN) 1-30 affected Luke s 2 % 00:00: area Medical ointment 00 daily. Center povidone-io Yes Apply [facility] 1-30 affected [facility] (BETADINE) 00:00: area as Medi abner 10 % 00 needed. Center external solution mupirocin Yes Apply [facility] (BACTROBAN) 1-30 affected Luke s 2 % 00:00: area Medical ointment 00 daily. [place] albuterol albuterol No albuterol [place] HFA [...] da tablet Medical Group Immunizations Ordered Filled Date Status Comments Source Immunization Name Immunization Name HEP B, Adult Dosage 2019-02-16 Completed Unive rsity of 00:00:00 [facility] HEP B, Adult Dosage 2019-02-16 Completed Unive rsity of 00:00:00 [facility] HEP B, Adult Dosage 2019-02-16 Completed Unive rsity of 00:00:00 [facility] HEP B, Adult Dosage 2019-02-16 Completed Unive rsity of 00:00:00 [facility] TDAP 2015-02-20 Completed University of 00:00:00 [facility] TDAP 2015-02-20 Completed University of 00:00:00 [facility] TDAP 2015-02-20 Completed University of 00:00:00 [facility] TDAP 2015-02-20 Completed University of 00:00:00 [facility] TDAP Unknown Completed [facility] HEP B, Adult Dosage Unknown Completed Unive rsity of [facility] TDAP Unknown Completed [facility] HEP B, Adult Dosage Unknown [facility] Com[facility] HEP B, Adult Dosage Unknown Completed Unive rsity [facility] Vital Signs Vital Name Observation Time Observation Value Comments Source Body height 2021-08-15 14:56:00 165.1 cm [facility] Body weight 2021-08-15 14:56:00 108.2 kg [facility] BMI 2021-08-15 14:56:00 39.69 kg/m2 [facility] BP Diastolic 2021-06-04 00:00:00 99 mm[Hg] [facility] Height 2021-06-04 00:00:00 66 [in_i] [facility] BMI (Body Mass 2021-06-04 00:00:00 39.2 kg/m2 [place] [employer] Medical Index) Group BP Systolic 2021-06-04 00:00:00 198 mm[Hg] [facility] Body Weight 2021-06-04 00:00:00 242.9 [lb_av] [facility] BP Diastolic 2021-04-23 00:00:00 108 mm[Hg] [facility] Height 2021-04-23 00:00:00 66 [in_i] [facility] BMI (Body Mass 2021-04-23 00:00:00 39.7 kg/m2 [facility] Medical Index) Group BP Systolic 2021-04-23 00:00:00 201 mm[Hg] [facility] Body Weight 2021-04-23 00:00:00 246 [lb_av] [facility] BP Diastolic 2021-02-26 00:00:00 92 mm[Hg] [facility] Height 2021-02-26 00:00:00 66 [in_i] [facility] BMI (Body Mass 2021-02-26 00:00:00 42.1 kg/m2 [facility] Medical Index) Group BP Systolic 2021-02-26 00:00:00 187 mm[Hg] [facility] Body Weight 2021-02-26 00:00:00 260.8 [lb_av] [facility] BP Diastolic 2021-02-12 00:00:00 81 mm[Hg] [facility] Height 2021-02-12 00:00:00 66 [in_i] [facility] BMI (Body Mass 2021-02-12 00:00:00 42 kg/m2 [facility] Medical Index) Group BP Systolic 2021-02-12 00:00:00 149 mm[Hg] [facility] Body Weight 2021-02-12 00:00:00 260.1 [lb_av] [facility] BP Diastolic 2021-01-29 00:00:00 95 mm[Hg] [facility] Height 2021-01-29 00:00:00 66 [in_i] [facility] BMI (Body Mass 2021-01-29 00:00:00 41.8 kg/m2 [facility] Medical Index) Group BP Systolic 2021-01-29 00:00:00 209 mm[Hg] [facility] Body Weight 2021-01-29 00:00:00 259 [lb_av] [facility] Procedures Procedure Date / Time Performing Clinician Source Performed DEXA AXIAL (HIP AND 2023-01-08 16:32:28 Requisition, Paper [facility] SPINE) Medical Branch BI SCREENING 2023-01-08 15:54:26 Requisition, Paper [facility] TOMOSYNTHESIS BILATERAL Medical Branch NOTICE OF PRIVACY 2023-01-08 14:40:41 [facility] Branch CONSENT/REFUSAL FOR 2023-01-08 14:38:37 [facility] DI[facility]REAT[facility] Name Medical Branch ASSIGNMENT OF BENEFITS 2023-01-08 14:38:21 Doctor Unassigned, No [facility] Name Medical Branch EXTERNAL PROVIDER 2021-11-05 05:01:00 Doctor [facility]assigned, [facility] Name [facility] Branch EXTERNAL PROVIDER 2021-10-01 05:01:00 Doctor Unassigned, [facility] Branch EXTERNAL PROVIDER 2021-08-24 05:01:00 Doctor [facility]igned, No [facility] Branch US, transvaginal [...] Planned Date Details Comments Source Future Scheduled 2023-01-31 [facility] Test 08:57:25 malignant neoplasm of colon (procedure) [code = 969259821] Future Scheduled 2023-01-31 [facility] Test 08:57:25 malignant neoplasm of colon (procedure) [code = 923706581] Future Scheduled 2023-01-31 [facility] Test 08:57:25 malignant neoplasm of colon (procedure) [code = 171782202] Future Scheduled 2023-01-31 COVID-19 [facility]ACCINE (#[facility] 08:57:25 [code = COVID-19 VACCINE (#1)] Future Scheduled 2023-01-31 [facility] Test 08:57:25 malignant neoplasm of cervix (procedure) [code = 669055294] Future Scheduled 2023-01-31 BREAST CANCER [facility] Test 08:57:25 SCREENING [code = BREAST CANCER SCREENING] Future Scheduled 2023-01-31 [facility] Test 08:57:25 malignant neoplasm of colon (procedure) [code = 279993682] Future Scheduled 2023-01-31 [facility] Test 08:57:25 malignant neoplasm of colon (procedure) [code = 510203254] Future Scheduled 2023-01-31 INFLUENZA VACCINE [facility] Test 08:57:25 (#1) [code = INFLUENZA VACCINE (#1)] Future Scheduled 2023-01-17 [facility] Test 11:13:17 malignant neoplasm of colon (procedure) [code = 492233116] Future Scheduled 2023-01-17 [facility] Test 11:13:17 malignant neoplasm of colon (procedure) [code = 942469339] Future Scheduled 2023-01-17 [facility] Test 11:13:17 malignant neoplasm of colon (procedure) [code = 958242846] Future Scheduled 2023-01-17 [facility] 11:13:17 [code = COVID-19 VACCINE (#1)] Future Scheduled 2023-01-17 [facility] Test 11:13:17 malignant neoplasm of cervix (procedure) [code = 562268606] Future Scheduled 2023-01-17 BREAST CANCER [facility] Test 11:13:17 SCREENING [code = BREAST CANCER SCREENING] Future Scheduled 2023-01-17 [facility] Test 11:13:17 malignant neoplasm of colon (procedure) [code = 149620713] Future Scheduled 2023-01-17 [facility] Test 11:13:17 malignant neoplasm of colon (procedure) [code = 210493319] Future Scheduled 2023-01-17 INFLUENZA VACCINE [facility] Test 11:13:17 (#1) [code = INFLUENZA VACCINE (#1)] Future Scheduled 2023-01-17 RSV VACCINES > 60 YR Met [facility] Test 11:13:17 (1 - 1-dose 60+ series) [code = RSV VACCINES > 60 YR (1 - 1-dose 60+ series)] Future Scheduled 2022-04-09 COVID-19 VACCINE (#1) [facility] Test 08:23:49 [code = COVID-19 VACCINE (#1)] Future Scheduled 2022-04-09 Pneumococcal Vaccine: [facility] Test 08:23:49 Pediatrics (0 to 5 Years) and At-Risk Patients (6 to 64 Years) (1 - PCV) [code = Pneumococcal Vaccine: Pediatrics (0 to 5 Years) and At-Risk Patients (6 to 64 Years) (1 - PCV)] Future Scheduled 2022-04-09 Hepatitis C screening [facility] Test 08:23:49 (procedure) [code = 208647002] Future Scheduled 2022-04-09 Screening for [facility] [place] [facility] Test 08:23:49 malignant neoplasm of cervix (procedure) [code = 404548493] Future Scheduled 2022-04-09 BREAST CANCER [facility] [place] [facility] Test 08:23:49 SCREENING [code = BREAST CANCER SCREENING] Future Scheduled 2022-04-09 COLONOSCOPY SCREENING [facility] Test 08:23:49 [code = COLONOSCOPY SCREENING] Future Scheduled 2022-04-09 INFLUENZA VACCINE [facility] Test 08:23:49 [code = INFLUENZA VACCINE] Diagnostic Test 2021-06-04 wet [place], vaginal [place] [employer] Medical Pending 00:00:00 [code = [place], Group vaginal] Encounters Start End Encounter Admission Attending Care Care Encounter Source Date/Time Date/Time Type Type Clinicians Facility Department ID 2023-02-16 Outpatient [id number] Memoria 12:12:06 [id number] Hershey [id number] 2021-07-02 Outpatient [facility] [id number] [place] 15:28:35 [id number] Health 2021-02-03 Emergency [facility] [id number] Univers 22:39:24 ity of [facility] 2021-02-03 Emergency [facility] [id number] Univers 03:43:30 ity of [facility] 2021-02-03 Outpatient [facility] [id number] Univers 01:23:44 ROBERT ity of [facility] 2021-02-02 Outpatient Bettye SILVA [facility] [id number] Univers 20:32:01 ROBERT ity of [facility] 2021-02-01 Emergency [facility] [id number] Univers 16:10:52 ity of [facility] 2021-02-01 Emergency [facility] [id number] Univers 11:39:31 ity of [facility] 2021-02-01 Emergency [facility] [id number] Univers 07:21:24 ity of [facility] 2021-01-31 Outpatient R IAIN [facility] [id number] Univers 19:05:47 [place] ity of [facility] 2021-01-31 Emergency [facility] [id number] Univers 14:53:52 ity of [facility] 2023-02-03 2023-02-03 Outpatient [id number] [id number] PRIV [id number] [facility] 00:00:00 00:00:00 diyala_S [id number] [facility] al 2023-01-08 2023-01-08 [facility] [id number] Univers 09:41:56 23:59:00 Encounter [place] [id number] ity of [place] 4.2.7.2.686 [facility] [id number] [address] 2023-01-08 2023-01-08 Outpatient R RADIOLOGY [facility] [id number] Univers 09:40:02 09:40:02 ity of [facility] 2023-01-08 2023-01-08 Hospital Radiology [facility] [id number] [id number] Univers 09:40:02 09:40:02 Encounter [place] [id number] ity of [place] 4.2.7.2.686 [facility] [id number] [address] 2021-11-05 2021-11-05 Orders Doctor ROBERT 1.2.840.114 [id number] Univers 00:00:00 00:00:00 Only Unassigned, CARYN [id number] ity of [place] [facility] 4.2.7.2.686 Jez as [id number] [address] 2021-10-01 2021-10-01 Orders Doctor ROBERT [id number] Univers 00:00:00 00:00:00 Only Unassigned, CARYN [id number] ity of [place] [facility] 4.2.7.2.686 Jez as [id number] [address] 2021-09-10 2021-09-10 [facility] [id number] Univers 13:40:00 13:40:00 ANIYAH bellamy o f [facility] 2021-08-24 2021-08-24 Orders Doctor JONES 1.2.840.114 [id number] Univers 00:00:00 00:00:00 Only Unassigned, CARYN 350.1.13.10 ity of [place] [facility] 4.2.7.2.686 Jez as [id number] [address] 2021-08-23 2021-08-23 Outpatient Bettye VALADEZ [facility] [id number] Univers 14:00:00 14:00:00 SOFIYA bellamy [facility] 2021-08-15 2021-08-15 Outpatient [facility] [id number] Univers 10:00:00 10:05:11 KYLER bellamy [facility] 2021-08-15 2021-08-15 Office [facility] [id number] Univers 10:00:00 10:05:11 Visit Kyler [facility] [id number] it y of [place] 4.2.7.2.686 Jez as CAROL?BLEA [phone] [address] MEDICAL OFFICE BUILDING 2021-06-27 2021-06-27 Outpatient Esteban_Ninfa [facility] MM [id number] [place] 12:41:00 12:41:00 0324 Medical Group 2021-06-21 2021-06-21 Outpatient Rosalbacarlos_L MMG [facility] [id number] [place] 04:20:00 04:20:00 0318 guadalupe [facility] 2021-06-04 2021-06-04 Moisés IbarraL MMG [place] - [id number] 022 [place] 00:00:00 00:00:00 Discovery Wiliam 0301 da MD: [address] [place] [address] , Ph. [phone] 2021-05-10 2021-05-10 Outpatient Rosalbacarlos_L MMG [facility] [id number] [place] 04:32:00 04:32:00 0204 guadalupe [facility] 2021-05-07 2021-05-07 [place]és [place] - [id number] 022 [place] 00:00:00 00:00:00 Discovery Wiliam 0201 da MD: [address] [place] [address] , Ph. [phone] 2021-04-26 2021-04-26 Telephone [facility] 1.2.840.114 [id number] Univers 00:00:00 00:00:00 Raegan HAMMER 350.1.13.10 [facility] 4.2.7.2.686 [facility] s PROFESSIO [id number] [address] 2021-04-23 2021-04-23 [place]és [place] - [id number] 022 [place] 00:00:00 00:00:00 Discovery Wiliam 0118 da MD: [address] [place] [phone] , Ph. [phone] 2021-04-05 2021-04-07 Inpatient ER ESTEBAN [facility] [id number] [place] 20:54:00 11:40:00 ZENON [id number] [facility] 2021-03-26 2021-03-26 Outpatient [facility] [id number] [place] 00:00:00 00:00:00 TAVO [address] 2021-03-11 2021-03-12 Inpatient ER Wiliam, [facility] [id number] [place] 22:28:00 13:30:00 Moisés [id number] [facility] 2021 2021 Outpatient EL Wiliam, [facility] [id number] [place] 09:05:00 09:05:00 Moisés [id number] [facility] 2021-02-27 2021-02-27 Orders Doctor ROBERT 1.2.840.114 [id number] 00:00:00 00:00:00 Only Unassigned, CARYN 350.1.13.10 ity of [place] [facility] 4.2.7.2.686 Jez as [id number] [address] 2021-02-26 2021-02-26 Moisés Mijares [facility] [place] [place] [place] - [id number] 021 [place] 00:00:00 00:00:00 Discovery Wiliam 1123 da MD: [address] [place] [address] , Ph. [phone] 2021-02-15 2021-02-15 Orders Doctor JONES 1.2.840.114 [id number] Univers 00:00:00 00:00:00 Only Unassigned, CARYN 350.1.13.10 ity of [place] [facility] 4.2.7.2.686 Jez as [id number] [address] 2021-02-12 2021-02-12 Moisés Mijares [facility] [place] [place] [place] - [id number] 021 [place] 00:00:00 00:00:00 Discovery Wiliam 1109 da MD: [address] [place] [address] , Ph. [phone] 2021-02-12 2021-02-12 JOCELYN Sol [id number] [facility] 00:00:00 00:00:00 Aniyah HAMMER 350.1.13.10 ity of [place].2.[place] [phone] Nv dical NAL 059 [facility] 2021-02-07 2021-02-07 Outpatient R [facility] [id number] Univers 09:00:00 09:00:00 ity of [facility] 2021-02-05 2021-02-05 Outpatient R NENA [facility] [id number] Univers 15:00:00 15:00:00 RAEGAN ity of [facility] 2021-01-29 2021-01-29 Mo[place]és [place]aca_[place] - [id number] 021 [place] 00:00:00 00:00:00 Discovery Wiliam 1026 guadalupe MD: [address] [address] , Ph. [phone] 2021-01-24 2021-01-24 Outpatient Maryana MMG [facility] [id number] [place] 10:57:00 10:57:00 1021 guadalupe [facility] 2021-01-21 2021-01-21 Patient Doctor ROBERT 1.2.840.114 [id number] Univers 00:00:00 00:00:00 Secure Msg UnassCARYN gonzales 350.1.13.10 ity of [place] [facility] 4.2.7.2.686 Jez as [id number] [address] 2021-01-17 2021-01-17 Nurse Nurse, [facility] 1.2.840.114 [id number] Univers 10:07:38 10:50:03 Visit Sofiya Valadez 350.1.13.10 ity of [place] [phone] Nv dical nal 134 [facility] 2021-01-17 2021-01-17 Outpatient R [facility] [id number] Univers 10:00:00 10:00:00 ity of [facility] 2021-01-17 2021-01-17 Telephone Sharon Mayers [facility] 1.2.840.114 [id number] Univers 00:00:00 00:00:00 Juice Hammer 350.1.13.10 i ty of [place] [phone] Nv dical nal 134 [facility] 2021-01-17 2021-01-17 [facility] 1.2.840.114 [id number] Univers 00:00:00 00:00:00 Management Sofiya Hammer 350.1.13.10 ity [place] [phone] Nv dical nal 134 [facility] 2020-12-12 2020-12-12 Telephone Alyson Montero 1.2.840.114 [id number] Univers 00:00:00 00:00:00 , Megan Valdez 350.1.13.10 ity of [place]2.7.2.[place] [id number] [facility] 086 [place] 2020-12-11 2020-12-11 Orders Doctor ROBERT 1.2.840.114 [id number] Univers 00:00:00 00:00:00 Only Unassigned, CARYN 350.1.13.10 ity of [place] [facility] 4.2.7.2.686 Jez as [phone] [facility] 009 [place] 2020-12-04 2020-12-04 Telephone [facility] 1.2.840.114 [id number] Univers 00:00:00 00:00:00 Raegan [place] 350.1.13.10 it[place] of [place] [phone] Nv dical nal 044 [facility] 2020-11-27 2020-11-27 Telephone [facility] [id number] Univers 00:00:00 00:00:00 Aniyah Hammer 350.1.13.10 it[place] [phone] Nv dical nal 059 [facility] 2020-11-15 2020-11-15 Outpatient R ADUM, [facility] [id number] Univers 10:00:00 10:00:00 SOFIYA y [facility] 2020-11-15 2020-11-15 Outpatient R [facility] [id number] Univers 09:00:00 09:00:00 ity [facility] 2020-09-18 2020-09-18 Outpatient EMMANUEL, [facility] [id number] Univers 00:00:00 00:00:00 ANIYAH bellamy o [facility] 2020-09-07 2020-09-07 Outpatient R EMMANUEL, [facility] [id number] Univers 13:40:00 14:16:15 ANIYAH bellamy o yesenia [facility] 2020-09-07 2020-09-07 [facility] [phone] [id number] Univers 13:29:04 14:16:15 Visit Aniyah Hammer [id number] ity of [place] [phone] [place] [address] 2020-09-07 2020-09-07 Office [facility] 1.2.840.114 [id number] Univers 13:29:04 14:16:15 Visit Aniyah HAMMER 350.1.13.10 [facility] [place] [phone] [place] [address] 2020-08-30 2020-08-30 Outpatient R ADUM, [facility] [id number] Univers 00:00:00 00:00:00 SOFIYA mcnultyy [facility] 2020-08-28 2020-08-28 Outpatient R ADUM, [facility] [id number] Univers 10:00:00 10:00:00 SOFIYA mcnultyy [facility] 2020-08-24 2020-08-24 Outpatient R ADUM, [facility] [id number] Univers 15:30:00 15:30:00 SOFIYA mcnultyy [facility] 2020-08-23 2020-08-23 Outpatient R ADUM, [facility] [id number] Univers 10:00:00 10:00:00 SOFIYA bellamy [facility] 2020-08-23 2020-08-23 Outpatient R [facility] [id number] Univers 09:00:00 09:00:00 mia [facility] 2020-07-23 2020-07-23 Outpatient R ALF, [facility] [id number] Univers 16:40:00 16:40:00 NAY bellamy [facility] 2020-06-28 2020-06-28 Outpatient R ALLYSON, [facility] [id number] Univers 16:15:00 16:15:00 SOFIYA bellamy [facility] 2020-06-07 2020-06-07 Outpatient R RICARDO, [facility] [id number] Univers 13:30:00 13:30:00 ROBERT bellamy [facility] 2020-05-31 2020-05-31 Outpatient R RICARDO, [facility] [id number] Univers 15:00:00 15:00:00 ROBERT bellamy [facility] 2020-05-24 2020-05-24 Outpatient R HAO, [facility] [id number] Univers 13:00:00 13:00:00 CHICHO ity o f [facility] 2020-05-17 2020-05-17 [facility] [id number] Univers 08:30:00 08:30:00 ROBERT bellamy [facility] 2020-05-03 2020-05-03 Outpatient [facility]e [facility] [id number] Univers 15:30:00 15:30:00 ROBERT chely [facility] 2020 2020 Telephone [facility] 1.2.840.114 [id number] 00:00:00 00:00:00 Raegan Hammer 350.1.13.10 [place] 4.2.7.2.686 Professio [phone] [address] 2020-02-28 2020-02-28 Telephone [facility] 1.2.840.114 [id number] 00:00:00 00:00:00 Raegan Hammer 350.1.13.10 [place] 4.2.7.2.686 Professio [id number] [address] 2020-02-27 2020-02-27 Orders Doctor ROBERT 1.2.840.114 [id number] 00:00:00 00:00:00 Only Unassigned, CARYN 350.1.13.10 Petal [facility] 4.2.7.2.686 [id number] 009 2020-02-23 2020-02-23 Outpatient R [facility] [id number] Univers 14:20:00 14:20:00 RAEGAN [facility] 2020-02-23 2020-02-23 Telephone [facility] 1.2.840.114 [id number] 00:00:00 00:00:00 [place] 350.1.13.10 [place] 4.2.7.2.686 Professio [id number] [address] 2020-02-21 2020-02-21 Telephone [facility] 1.2.840.114 [id number] 00:00:00 00:00:00 [place]egan [place] 350.1.13.10 [place] 4.2.7.2.686 Professio [id number] [address] 2020-02-15 2020-02-15 [facility] 1.2.840.114 [id number] 00:00:00 00:00:00 Raegan A [place] 350.1.13.10 [place] 4.2.7.2.686 Professio [id number] [address] 2020-02-13 2020-02-13 [facility] 1.2.840.114 [id number] 11:19:56 23:59:00 Encounter Raegan Dawkins [place] 350.1.13.10 [place] 4.2.7.2.686 [place] [id number] 2020-02-13 2020-02-13 [facility] [id number] Univers 00:00:00 00:00:00 RAEGAN [facility] 2020-02-06 2020-02-06 Outpatient R [facility] [id number] Univers 14:30:00 14:30:00 mia [facility] 2020-02-06 2020-02-06 Office [facility] 1.2.840.114 [id number] 10:51:42 12:25:44 Visit Raegan Hammer 350.1.13.10 Masha 4.2.7.2.686 Evelyn [id number] [address] 2020-01-31 2020-01-31 [facility] [id number] Univers 14:00:00 14:00:00 KAREN [facility] 2020-01-26 2020-01-26 Orders Doctor ROBERT 1.2.840.114 [id number] 00:00:00 00:00:00 Only Unassigned, CARYN 350.1.13.10 [place] [facility] 4.2.7.2.686 [id number] 009 2020-01-13 2020-01-13 [facility] [id number] Univers 13:00:00 13:00:00 REMEDIOS [facility] 2020-01-09 2020-01-09 [facility] [id number] Univers 09:20:00 09:20:00 ANIYAH garsia f [facility] 2019-12-26 2019-12-26 [facility] [id number] Univers 08:30:00 08:30:00 KAREN [facility] 2019-11-28 2019-11-28 Outpatient R AARON [facility] [id number] Univers 11:00:00 11:00:00 [facility] 2019-11-24 2019-11-24 [facility] [id number] [place] 00:00:00 00:00:00 ANNA Lyn i 2019-11-14 2019-11-14 Outpatient [facility] [id number] Univers 11:20:00 11:20:00 ANIYAH bellamy o f [facility] 2019-11-07 2019-11-07 [facility] [id number] Univers 14:00:00 14:00:00 RAEGAN bellamy [facility] 2019-11-07 2019-11-07 Outpatient R NENA, [facility] [id number] Univers 10:40:00 12:09:31 RAEGAN ity [facility] 2019-11-02 2019-11-02 Outpatient R EMMANUEL, [facility] [id number] Univers 11:20:00 11:20:00 ANIYAH bellamy o f [facility] 2019-10-20 2019-10-20 Outpatient R [facility] [id number] Univers 11:20:00 11:20:00 mia [facility] 2019-09-23 2019-09-23 Outpatient R NENA, [facility] [id number] Univers 08:40:00 08:40:00 RAEGANMASOOD bellamy [facility] 2019-09-13 2019-09-13 [place] [id number] [place] 00:00:00 00:00:00 ANNA 527 Method i 2019-09-08 2019-09-08 [facility] [id number] [place] 00:00:00 00:00:00 ANNA 793 Method i 2019-09-08 2019-09-08 [facility] [id number] [place] 00:00:00 00:00:00 ANNA 526 Method i 2019-08-25 2019-08-25 Outpatient R IAIN [facility] [id number] Univers 10:45:00 10:45:00 [place] bellamy [facility] 2019-08-23 2019-08-23 Outpatient [facility] [id number] [address] [place] [address] 00:00:00 00:00:00 804 Method i 2019-08-08 2019-08-08 Outpatient R IAIN [facility] [id number] Univers 08:30:00 08:30:00 [place] bellamy [facility] 2019-07-21 2019-07-21 Outpatient R IAIN [facility] [id number] Univers 10:59:56 23:59:00 [place] bellamy [facility] 2019-07-21 2019-07-21 Outpatient R IAIN [facility] [id number] Univers 10:45:00 10:45:00 [place] bellamy [facility] 2019-07-06 2019-07-06 Outpatient R EMMANUEL, [facility] [id number] Univers 09:20:00 09:20:00 ANIYAH bellamy o f [facility] 2019-06-22 2019-06-[address], [facility] PRASHANTH [id number] Univers 06:16:54 17:21:00 NICOLETTE bellamy [facility] 2019-06-21 2019-06-21 Outpatient R NENA, [facility] [id number] Univers 09:00:00 09:00:00 RAEGAN ity [facility] 2019-05-17 2019-05-17 Outpatient R IAIN, [facility] [id number] Univers 15:45:00 16:12:36 [place] bellamy [facility] 2019-05-03 2019-05-03 Outpatient R IAIN, [facility] [id number] Univers 07:58:00 13:45:00 [place] bellamy [facility] 2019-04-21 2019-04-21 Outpatient R IAIN, [facility] [id number] Univers 10:15:00 10:52:40 [place] bellamy [facility] 2019-03-07 2019-03-07 Outpatient R SHARON MAYERS [facility] [id number] Univers 10:00:00 09:53:42 [facility] 2019-01-13 2019-01-13 Outpatient R PRESTON, [facility] [id number] Univers 06:32:00 09:04:00 EDUARDO mia [facility] 2019-01-04 2019-01-04 Outpatient R EMMANUEL, [facility] [id number] Univers 13:20:00 13:52:31 ANIYAH bellamy o yesenia [facility] 2018-12-29 2018-12-29 Outpatient R EMMANUEL, [facility] [id number] Univers 13:20:00 13:20:00 ANIYAH bellamy o f [facility] 2018-12-17 2018-12-[address], [facility] PR[facility] [id number] Univers 11:02:00 14:20:00 NICOLETTEDESIREE bellamy [facility] 2018-10-28 2018-10-28 Outpatient R ZANE, [facility] [id number] Univers 10:30:00 11:02:21 KALLIE [facility] 2018-10-22 2018-10-22 Outpatient R HUMPHREY [facility] [id number] Univers 10:00:00 10:50:24 KAREN [facility] 2018-10-04 2018-10-04 Outpatient R EDUARDO [facility] B [id number] Univers 15:15:00 15:35:28 EDUARDO MCQUEEN [facility] 2018-09-22 2018-09-22 Outpatient R EDUARDO [facility] B [id number] Univers 14:00:00 15:00:57 EDUARDO MCQUEEN [facility] 2018-08-26 2018-08-26 Outpatient Bettye TRIPP [facility] [id number] Univers 14:00:00 15:20:11 [facility] 2018-08-05 2018-08-05 Outpatient Bettye TRIPP [facility] [id number] Univers 09:45:00 09:45:00 [facility] Results Test Description Test Time Test [...] normal RBCs (test code = RBCs) negative [facility] [Identifier] in Vaginal fluid by Wet [id number] 11:46:00 Test Item Value Reference Range Interpretation Comments Clue Cells (test code = Clue Cells) negative WBCs (test code = WBCs) positive Trichomonads (test code = negative Trichomonads) Epithelial cells (test code = normal Epithelial cells) RBCs (test code = RBCs) positive [facility] W Auto Differential panel - [id number] 01:57:00 Test Item Value Reference Range Interpretation Comments white blood count (test code = 8.1 K/uL 4.0-11.5 white blood count) red blood count (test code = red 4.08 M/uL 3.80-5.20 blood count) hemoglobin (test code = 11.7 g/dL 10.5-15.7 hemoglobin) hematocrit (test code = 38.3 % 34.0-50.0 hematocrit) MCV [Entitic volume] (test code = 93.9 fL 86-100 44014-2) mean corpuscular hemoglobin (test 28.7 pg 26.2-33.4 [...] 44.4-80.1 leukocytes in Blood (test code = 15276-4) Immature granulocytes [#/volume] 0.0 K/uL 0.0-0.03 in Blood (test code = 39018-8) lymphocyte% (test code = 15.3 % 10.0-50.0 lymphocyte%) mono % (test code = mono %) 10.8 % 3.6-12.0 eos % (test code = eos %) 5.0 % 0.0-5.4 Basophils/100 leukocytes in 0.5 % 0.1-1.2 Unspecified specimen (test code = 05364-9) Band form neutrophils [#/volume] 5.54 K/uL 1.56-6.13 in Blood (test code = 84653-8) Lymphocytes [#/volume] in 1.2 K/uL 1.18-3.74 Unspecified specimen by Automated count (test code = 42489-7) mono # (test code = mono #) 0.88 K/uL 0.24-0.86 H eos # (test code = eos #) 0.41 K/uL 0.04-0.36 H basophil # (test code = basophil 0.04 K/uL 0.01-0.08 #) NRBC% (test code = NRBC%) 0 /100 WBC 0-0.2 NRBC# (test code = NRBC#) 0 K/uL [facility] panel - Serum or [id number] 01:57:00 Test Item Value Reference Range Interpretation [...] code = 9.1 mg/dL 8.6-10.0 calcium level) [facility] RNA [Presence] in Respiratory specimen by VANITA with probe [id number] 07:55:7285367-0Mlmssynhe Medical GroupBlood type and Indirect antibody screen panel - [id number] 07:30:00 Test Item Value Reference Range Interpretation Comments Rh [Type] in Blood (test code = 4+ 59845-8) ABO and Rh group panel - Blood A positive (test code = 81952-4) [facility] RNA [Presence] in Respiratory specimen by VANITA with probe [id number] 16:49:18 Test Item Value Reference Range Interpretation Comments SARS-CoV-2 (COVID-19) RNA Not detected Not-Detected [Presence] in Respiratory specimen by VANITA with probe detection (test code = 64770-6) 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 (test code = 43714-7) Whether the patient has symptoms related to condition of interest (test code = 33598-9) Patient was hospitalized because of this condition (test code = 67061-8) Whether the patient was admitted to intensive care unit (ICU) for condition of interest (test code = 70399-3) Whether patient resides in a congregate care setting (test code = 51714-6) [facility] coronavirus 2 RNA [Presence] in Respiratory specimen by VANITA with probe [id number] 21:20:29 Test Item Value Reference Range Interpretation Comments SARS coronavirus 2 RNA Not detected Not-Detected [Presence] in Respiratory specimen by VANITA with probe detection (test code = 25880-4) [facility] 08:36:00 Test Item Value Reference Range Interpretation Comments POTASSIUM (test code 4.1 MMOL/L 3.5-4.9 N Previou sly reported = K) result: 4.0 MMOL/LEdited by : DEEJAY on 03/21/19:737841 0825: K previou sly reported as: 4. 0 MMOL/L [id number] 08:24:00 Test Item Value Reference Range Interpretation Comments POTASSIUM (test code = K) 4.0 MMOL/L 3.5-4.9 N POCT-GLUCOSE [id number] 14:54:00 Test Item Value Reference Range Interpretation Comments POC-GLUCOSE METER 117 mg/dL 70-110 H TESTED AT [facility] [address] [facility] (test code = AUDREY Wen [facility] 1538) [address] [id number] 12:36:00 Test Item Value Reference Range Interpretation Comments FERRITIN (BEAKER) (test code = 361) 568 ng/mL 5-275 H BASIC METABOLIC [id number] 12:26:00 Test Item Value Reference Range Interpretation [...] S NOT APPLICABLE FOR DIALYSIS PATIEN TS. [id number] 12:22:00 Test Item Value Reference Range Interpretation Comments MAGNESIUM (BEAKER) (test code = 1.6 mg/dL 1.6-2.6 627) CBC W/PLT COUNT & AUTO [id number] 12:02:00 Test Item Value Reference Range Interpretation [...] PERCENT (BEAKER) (test code = 2801) POCT-GLUCOSE [id number] 11:10:00 Test Item Value Reference Range Interpretation Comments POC-GLUCOSE METER 114 mg/dL 70-110 H TESTED AT [place] [address] ([facility]) (test code = [facility] Wen [facility] 1538) [address] POCT-GLUCOSE [id number] 08:09:00 Test Item Value Reference Range Interpretation Comments POC-GLUCOSE METER 120 mg/dL 70-110 H TESTED AT [place] [address] ([facility]) (test code = [facility] 1538) [address] PROTEIN, RANDOM [id number] 00:08:00 Test Item Value Reference Range Interpretation Comments PROTEIN, URINE (BEAKER) (test code 372 mg/dL 0-14 H = 1569) CREATININE, RANDOM [id number] 23:14:00 Test Item Value Reference Range Interpretation Comments CREATININE URINE (BEAKER) (test 26.6 mg/dL code = 375) Reference Range: No NormalsUREA NITROGEN, RANDOM [id number] 23:14:00 Test Item Value Reference Range Interpretation Comments UREA NITROGEN URINE (BEAKER) (test 163 mg/dL code = 538) Reference Range: No NormalsPOCT-GLUCOSE [id number] 20:49:00 Test Item Value Reference Range Interpretation Comments POC-GLUCOSE METER 144 mg/dL 70-110 H TESTED AT [facility] 6720 (BEAKER) (test code = AUDREY Wen [facility] 1538) 14747 POCT-GLUCOSE [id number] 16:59:00 Test Item Value Reference Range Interpretation Comments POC-GLUCOSE METER 125 mg/dL 70-110 H TESTED AT [place] [address] (BEAKER) (test code = AUDREY Wen [facility] 1538) 44233 POCT-GLUCOSE [id number] 12:30:00 Test Item Value Reference Range Interpretation Comments POC-GLUCOSE METER 91 mg/dL 70-110 TESTED AT [place] [address] (BEAKER) (test code = BANNER Bettye [facility] [address] 1538) POCT-GLUCOSE [id number] 07:32:00 Test Item Value Reference Range Interpretation Comments POC-GLUCOSE METER 147 mg/dL 70-110 H TESTED AT [place] [address] (BEAKER) (test code = MARINOSD Bettye [facility] 1538) [address] BASIC METABOLIC [id number] 07:06:00 Test Item Value Reference Range Interpretation [...] S NOT APPLICABLE FOR DIALYSIS PATIEN TS. [id number] 06:45:00 Test Item Value Reference Range Interpretation Comments MAGNESIUM (BEAKER) (test code = 1.8 mg/dL 1.6-2.6 627) CBC W/PLT COUNT & AUTO [id number] 05:49:00 Test Item Value Reference Range Interpretation [...] PERCENT (BEAKER) (test code = 2801) POCT-GLUCOSE [id number] 19:53:00 Test Item Value Reference Range Interpretation Comments POC-GLUCOSE METER 104 mg/dL 70-110 TESTED AT [place] [address] ([facility]) (test code = [facility] 1538) [address] POCT-GLUCOSE [id number] 17:13:00 Test Item Value Reference Range Interpretation Comments POC-GLUCOSE METER 116 mg/dL 70-110 H TESTED AT [place] [address] ([facility]) (test code = [facility] 1538) 52345 POCT-GLUCOSE [id number] 12:52:00 Test Item Value Reference Range Interpretation Comments POC-GLUCOSE METER 94 mg/dL 70-110 TESTED AT [place] [address] ([facility]) (test code = [facility] 61501 1538) POCT-GLUCOSE [id number] 07:54:00 Test Item Value Reference Range Interpretation Comments POC-GLUCOSE METER 91 mg/dL 70-110 TESTED AT [place] [address] ([facility]) (test code = [facility] 11995 1538) BASIC METABOLIC [id number] 04:57:00 Test Item Value Reference Range Interpretation [...] S NOT APPLICABLE FOR DIALYSIS PATIEN TS. [id number] 04:50:00 Test Item Value Reference Range Interpretation Comments MAGNESIUM (BEAKER) (test code = 1.8 mg/dL 1.6-2.6 627) POCT-GLUCOSE [id number] 21:19:00 Test Item Value Reference Range Interpretation Comments POC-GLUCOSE METER 142 mg/dL 70-110 H TESTED AT [place] [address] (BEAKER) (test code = [facility] 1538) 57520 POCT-GLUCOSE [id number] 16:51:00 Test Item Value Reference Range Interpretation Comments POC-GLUCOSE METER 196 mg/dL 70-110 H TESTED AT [place] [address] ([facility] (test code = [facility] 1538) 95143 POCT-GLUCOSE [id number] 12:00:00 Test Item Value Reference Range Interpretation Comments POC-GLUCOSE METER 76 mg/dL 70-110 TESTED AT [place] [address] ([facility] (test code = [facility] [address]23 1538) BASIC METABOLIC [id number] 11:34:00 Test Item Value Reference Range Interpretation [...] S NOT APPLICABLE FOR DIALYSIS PATIEN TS. [id number] 11:29:00 Test Item Value Reference Range Interpretation Comments MAGNESIUM (BEAKER) (test code = 1.6 mg/dL 1.6-2.6 627) POCT-GLUCOSE [id number] 07:27:00 Test Item Value Reference Range Interpretation Comments POC-GLUCOSE METER 104 mg/dL 70-110 TESTED AT [facility] 6720 (BEAKER) (test code = [place]Y [place] 1538) [address] POCT-GLUCOSE [id number] 22:46:00 Test Item Value Reference Range Interpretation Comments POC-GLUCOSE METER 153 mg/dL 70-110 H TESTED AT [facility] 6720 (BEAKER) (test code = AUDREY Wen [place] 1538) [address] POCT-GLUCOSE [id number] 16:45:00 Test Item Value Reference Range Interpretation Comments POC-GLUCOSE METER 106 mg/dL 70-110 TESTED AT [place] [address] ([facility] (test code = AUDREY Wen [place] 1538) [address] POCT-GLUCOSE [id number] 11:29:00 Test Item Value Reference Range Interpretation Comments POC-GLUCOSE METER 145 mg/dL 70-110 H TESTED AT [facility] 6720 (BEAKER) (test code = AUDREY Wen [place] 1538) [address] POCT-GLUCOSE [id number] 07:34:00 Test Item Value Reference Range Interpretation Comments POC-GLUCOSE METER 177 mg/dL 70-110 H TESTED AT [place] [address] (BEAKER) (test code = AUDREY Wen [place] 1538) [address] BASIC METABOLIC [id number] 06:41:00 Test Item Value Reference Range Interpretation [...] S NOT APPLICABLE FOR DIALYSIS PATIEN TS. [id number] 06:25:00 Test Item Value Reference Range Interpretation Comments MAGNESIUM (BEAKER) (test code = 1.8 mg/dL 1.6-2.6 627) CBC W/PLT COUNT & AUTO [id number] 05:51:00 Test Item Value Reference Range Interpretation [...] PERCENT (BEAKER) (test code = 2801) POCT-GLUCOSE [id number] 22:54:00 Test Item Value Reference Range Interpretation Comments POC-GLUCOSE METER 173 mg/dL 70-110 H TESTED AT [place] [address] (BEAKER) (test code = [facility] 1538) 0[address] POCT-GLUCOSE [id number] 16:55:00 Test Item Value Reference Range Interpretation Comments POC-GLUCOSE METER 95 mg/dL 70-110 TESTED AT [place] [address] ([facility] (test code = [facility] [address] 1538) URIC [id number] 12:46:00 Test Item Value Reference Range Interpretation Comments URIC ACID (BEAKER) (test code = 5.9 mg/dL 2.6-7.2 773) POCT-GLUCOSE [id number] 11:38:00 Test Item Value Reference Range Interpretation Comments POC-GLUCOSE METER 129 mg/dL 70-110 H TESTED AT [place] [address] (BEAKER) (test code = [facility] 1538) [address] [id number] 09:39:00 Test Item Value Reference Range Interpretation Comments MAGNESIUM (BEAKER) (test code = 1.9 mg/dL 1.6-2.6 627) BASIC METABOLIC [id number] 09:05:00 Test Item Value Reference Range Interpretation [...] PATIEN TS. CBC W/PLT COUNT & AUTO [id number] 08:22:00 Test Item Value Reference Range Interpretation [...] PERCENT (BEAKER) (test code = 2801) POCT-GLUCOSE [id number] 07:28:00 Test Item Value Reference Range Interpretation Comments POC-GLUCOSE METER 253 mg/dL 70-110 H TESTED AT [place] [address] ([facility] (test code = AUDREY Wen [facility] 1538) [address] POCT-GLUCOSE [id number] 20:28:00 Test Item Value Reference Range Interpretation Comments POC-GLUCOSE METER 186 mg/dL 70-110 H TESTED AT [place] [id number] ([facility] (test code = AUDREY Wen [facility] 1538) [address] POCT-GLUCOSE [id number] 17:39:00 Test Item Value Reference Range Interpretation Comments POC-GLUCOSE METER 130 mg/dL 70-110 H TESTED AT [facility] 6720 (BEAKER) (test code = AUDREY Wen [facility] 1538) [id number] POCT-GLUCOSE [id number] 11:55:00 Test Item Value Reference Range Interpretation Comments POC-GLUCOSE METER 212 mg/dL 70-110 H TESTED AT [facility] 6720 (BEAKER) (test code = AUDREY Wen [facility] 1538) [address] POCT-GLUCOSE [id number] 08:14:00 Test Item Value Reference Range Interpretation Comments POC-GLUCOSE METER 178 mg/dL 70-110 H TESTED AT [facility] 6720 (BEAKER) (test code = AUDREY [place] 1538) [address] BASIC METABOLIC [id number] 07:08:00 Test Item Value Reference Range Interpretation [...] S NOT APPLICABLE FOR DIALYSIS PATIEN TS. [id number] 06:59:00 Test Item Value Reference Range Interpretation Comments MAGNESIUM (BEAKER) (test code = 1.8 mg/dL 1.6-2.6 627) CBC W/PLT COUNT & AUTO [id number] 06:34:00 Test Item Value Reference Range Interpretation [...] PERCENT (BEAKER) (test code = 2801) POCT-GLUCOSE [id number] 20:06:00 Test Item Value Reference Range Interpretation Comments POC-GLUCOSE METER 113 mg/dL 70-110 H TESTED AT [facility] 6720 (BEAKER) (test code = [place]UDREY [place] 1538) [id number] POCT-GLUCOSE [id number] 17:11:00 Test Item Value Reference Range Interpretation Comments POC-GLUCOSE METER 123 mg/dL 70-110 H TESTED AT [facility] 6720 (BEAKER) (test code = AUDREY [place] 1538) [address] POCT-GLUCOSE [id number] 12:31:00 Test Item Value Reference Range Interpretation Comments POC-GLUCOSE METER 105 mg/dL 70-110 TESTED AT [facility] 6720 (BEAKER) (test code = AUDREY Wen [place] 1538) [address] POCT-GLUCOSE [id number] 07:41:00 Test Item Value Reference Range Interpretation Comments POC-GLUCOSE METER 95 mg/dL 70-110 TESTED AT [facility] 6720 (BEAKER) (test code = [place] [address] 1538) BASIC METABOLIC [id number] 06:26:00 Test Item Value Reference Range Interpretation [...] S NOT APPLICABLE FOR DIALYSIS PATIEN TS. [id number] 06:19:00 Test Item Value Reference Range Interpretation Comments MAGNESIUM (BEAKER) (test code = 1.9 mg/dL 1.6-2.6 627) CBC W/PLT COUNT & AUTO [id number] 06:06:00 Test Item Value Reference Range Interpretation [...] PERCENT (BEAKER) (test code = 2801) POCT-GLUCOSE [id number] 22:48:00 Test Item Value Reference Range Interpretation Comments POC-GLUCOSE METER 106 mg/dL 70-110 TESTED AT [facility] 6720 ([facility]) (test code = AUDREY [place] 1538) [address] POCT-GLUCOSE [id number] 17:24:00 Test Item Value Reference Range Interpretation Comments POC-GLUCOSE METER 106 mg/dL 70-110 TESTED AT [facility] 6720 (BEAKER) (test code = AUDREY Wen [place] 1538) [address] POCT-GLUCOSE [id number] 12:04:00 Test Item Value Reference Range Interpretation Comments POC-GLUCOSE METER 206 mg/dL 70-110 H TESTED AT [facility] 6720 (BEAKER) (test code = AUDREY Wen [place] 1538) [address] POCT-GLUCOSE [id number] 07:23:00 Test Item Value Reference Range Interpretation Comments POC-GLUCOSE METER 221 mg/dL 70-110 H TESTED AT [facility] 6720 (BEAKER) (test code = AUDREY Wen [place] 1538) [address] VITAMIN B12 AND [id number] 06:47:00 Test Item Value Reference Range Interpretation Comments VITAMIN B12 (BEAKER) (test code = 441 pg/mL 213-816 774) FOLATE (BEAKER) (test code = 362) 7.7 ng/mL >=7.0 [id number] 06:25:00 Test Item Value Reference Range Interpretation Comments MAGNESIUM (BEAKER) (test code = 1.9 mg/dL 1.6-2.6 627) BASIC METABOLIC [id number] 06:25:00 Test Item Value Reference Range Interpretation [...] APPLICABLE FOR DIALYSIS PATIEN TS. CREATININE, RANDOM [id number] 05:48:00 Test Item Value Reference Range Interpretation Comments CREATININE URINE (SLICK) (test 40.4 mg/dL code = 375) Reference Range: No NormalsUREA NITROGEN, RANDOM [id number] 05:48:00 Test Item Value Reference Range Interpretation Comments UREA NITROGEN URINE (SLICK) (test 224 mg/dL code = 538) Reference Range: No NormalsPOCT-GLUCOSE [id number] 16:52:00 Test Item Value Reference Range Interpretation Comments POC-GLUCOSE METER 123 mg/dL 70-110 H TESTED AT [facility] 6720 (SLICK) (test code = AUDREY [place] 1538) [address] EEG AWAKE AND [id number] 14:21:00Reason for exam:->?[facility] DATE OF TEST: 04/26/2018 ACC: [id number] Start time: 10:25 Stop time: 10:55 ICD-10: R55 CPT Code: 99924 HISTORY: 43 yo female with PMHx of PE, CHF, HTN, DMII, JOSEFA, morbid obesity, and possible seizure disorder/syncope admitted with syncopal episode; found tohave SHWETHA, rhabdomyolysis, and ketosis. MEDICATIONS WHICH COULD AFFECT EEG: None TECHNICAL SUMMARY: This is a digital video EEG recorded with 27 input channels reviewed with bipolar and referential montages using the modified combinatorial system nomenclature. FT9, FT10 were not applied. DESCRIPTION OFRECORD: During the maximally alert state there was [...] Neurophysiology/Epilepsy Fellow Ruddy Burdick M.D., FACNS, FAAN, FAES Professor of Neurology, [facility] [employer] Director, [facility] Epilepsy [place], Mike [facility] Neuro[facility]iology [facility] POCT-GLUCOSE [id number] 11:40:00 Test Item Value Reference Range Interpretation Comments POC-GLUCOSE METER 116 mg/dL 70-110 H TESTED AT [facility] 67 (BEAKER) (test code = AUDREY Wen [place] 1538) [address] BASIC METABOLIC [id number] 10:48:00 Test Item Value Reference Range Interpretation [...] 153 U/L 29-200 code = 380) POCT-GLUCOSE [id number] 07:38:00 Test Item Value Reference Range Interpretation Comments POC-GLUCOSE METER 125 mg/dL 70-110 H TESTED AT [facility] 6720 (BEAKER) (test code = AUDREY Wen [place] 1538) [address] CBC W/PLT COUNT & AUTO [id number] 06:49:00 Test Item Value Reference Range Interpretation [...] % 0-1 PERCENT (BEAKER) (test code = 3981) POCT-GLUCOSE [id number] 20:35:00 Test Item Value Reference Range Interpretation Comments POC-GLUCOSE METER 173 mg/dL 70-110 H TESTED AT [place] [address] ([facility]) (test code = AUDREY Wen [facility] 1538) [address] POCT-GLUCOSE [id number] 18:13:00 Test Item Value Reference Range Interpretation Comments POC-GLUCOSE METER 128 mg/dL 70-110 H TESTED AT [place] [address] ([facility]) (test code = AUDREY Wen [facility] 1538) [address] POCT-GLUCOSE [id number] 12:16:00 Test Item Value Reference Range Interpretation Comments POC-GLUCOSE METER 235 mg/dL 70-110 H TESTED AT [place] [address] ([facility]) (test code = AUDREY Wen [facility] 1538) [address] VITAMIN D, [id number] 09:48:00 Test Item Value Reference Range Interpretation Comments VITAMIN D 25-OH ([facility]) (test code 5.3 ng/mL 6.6-49.9 L = 2764) Effective 01/14/2017: Reference Range ChangeNew: 6.6-49.9 ng/mL Previous: 13.0- 47.8 ng/mLRecommendedVitamin D Target Range: 30.0-40.0 ng/mLPOCT-GLUCOSE METER 2018-04-25 08:59:00 Test Item Value Reference Range Interpretation Comments POC-GLUCOSE METER 298 mg/dL 70-110 H TESTED AT [place] [address] ([facility]) (test code = AUDREY Wen [facility] 1538) [address] HEMOGLOBIN [id number] 08:30:00 Test Item Value Reference Range Interpretation Comments HEMOGLOBIN A1C (BEAKER) (test code = 7.9 % 4.3-6.1 H 368) BASIC METABOLIC [id number] 08:16:00 Test Item Value Reference Range Interpretation [...] NOT APPLICABLE FOR DIALYSIS PATIEN TS. PTH, [id number] 08:13:00 Test Item Value Reference Range Interpretation [...] 47 % 20-55 (test code = 2590) [id number] 08:05:00 Test Item Value Reference Range Interpretation Comments PHOSPHORUS (BEAKER) (test code = 5.2 mg/dL 2.3-4.7 H 604) CREATINE KINASE (CK)2018-04-25 08:05:00 Test Item Value Reference Range Interpretation Comments CREATINE KINASE TOTAL (BEAKER) (test 352 U/L 29-200 H code = 380) PROTEIN, RANDOM [id number] 02:06:00 Test Item Value Reference Range Interpretation Comments PROTEIN, URINE (BEAKER) (test code = > mg/dL 0-14 H 1569) SODIUM, RANDOM [id number] 00:57:00 Test Item Value Reference Range Interpretation Comments SODIUM URINE (BEAKER) (test code = < meq/L 243) Reference Range: No NormalsCREATININE, RANDOM [id number] 00:52:00 Test Item Value Reference Range Interpretation Comments CREATININE URINE (BEAKER) (test 131.0 mg/dL code = 375) Reference Range: No NormalsURINALYSIS W/ REFLEX URINE [id number] 00:32:00 Test Item Value Reference Range Interpretation [...] code = 1584) SOURCE(BEAKER) (test code = 1225) POCT-GLUCOSE [id number] 21:23:00 Test Item Value Reference Range Interpretation Comments POC-GLUCOSE METER 250 mg/dL 70-110 H TESTED AT [facility] 6720 (BEAKER) (test code = AUDREY [place] 1538) [address] BASIC METABOLIC [id number] 20:14:00 Test Item Value Reference Range Interpretation [...] NOT APPLICABLE FOR DIALYSIS PATIEN TS. TROPONIN [id number] 18:18:00 Test Item Value Reference Range Interpretation [...] U/L 29-200 H code = 380) POCT-GLUCOSE [id number] 17:31:00 Test Item Value Reference Range Interpretation Comments POC-GLUCOSE METER 249 mg/dL 70-110 H TESTED AT [facility] 6720 ([facility]) (test code = AUDREY Wen [place] 1538) [address] U/S, RENAL, [id number] 16:18:00Reason for exam:->AKIFINAL REPORT RENAL ULTRASOUND HISTORY: [...] MDReport Verified Date/Time: 04/24/2018 16:18:43 Reading Location: [facility] [address] [place] [address] Reading Room POCT-GLUCOSE [id number] 15:05:00 Test Item Value Reference Range Interpretation Comments POC-GLUCOSE METER 391 mg/dL 70-110 H TESTED AT [facility] 6720 (BEAKER) (test code = AUDREY Wen [facility] 1538) [address] LACTIC ACID, VENOUS, WHOLE [id number] 11:35:00 Test Item Value Reference Range Interpretation Comments LACTATE BLOOD VENOUS 1.3 mmol/L 0.5-2.2 Specime n slightly (2) (BEAKER) (test hemolyzed code = 2872) RAPID DRUG SCREEN, [id number] 08:50:00 Test Item Value Reference Range Interpretation [...] unconfirmed qualitative test result for the clinical managementof patients in emergency situations. Chain of custody not maintained. Some mcnd-pnu-eeglhql medications, as well as adulterants, may cause inaccurate results. Clinical correlation should be applied. A more comprehensive drug screen or confirmation of a detected drug may be performed upon request.SODIUM, RANDOM [id number] 08:44:00 Test Item Value Reference Range Interpretation Comments SODIUM URINE (BEAKER) (test code = 23 meq/L 243) Reference Range: No NormalsCREATININE, RANDOM [id number] 08:43:00 Test Item Value Reference Range Interpretation Comments CREATININE URINE (BEAKER) (test 95.4 mg/dL code = 375) Reference Range: No NormalsPOCT-GLUCOSE [id number] 08:01:00 Test Item Value Reference Range Interpretation Comments POC-GLUCOSE METER 496 mg/dL 70-110 HH TESTED AT [place] [address] [facility] ([facility] = [facility] 1538) [address] URIC [id number] 08:01:00 Test Item Value Reference Range Interpretation Comments URIC ACID (BEAKER) (test code = 5.2 mg/dL 2.6-7.2 773) POCT-GLUCOSE [id number] 07:32:00 Test Item Value Reference Range Interpretation Comments POC-GLUCOSE METER 480 mg/dL 70-110 HH TESTED AT [place] [address] [facility] (test code = AUDREY Wen [facility] 1538) [address] URINALYSIS W/ [id number] 07:30:00 Test Item Value Reference Range Interpretation [...] 515) SOURCE(BEAKER) (test code = Urine, Voided 6045) TROPONIN [id number] 07:29:00 Test Item Value Reference Range Interpretation [...] acute neurological disease, and persistent tachyarrhythmia. SCREEN, [id number] 07:17:00 Test Item Value Reference Range Interpretation Comments TEST URINE (BEAKER) (test Negative code = 583) CBC W/PLT COUNT & AUTO [id number] 07:05:00 Test Item Value Reference Range Interpretation [...] (BEAKER) (test code = 2801) COMPREHENSIVE METABOLIC [id number] 03:08:00 Test Item Value Reference Range Interpretation [...] FOR DIALYSIS PATIEN TS. TSH/FREE T4 IF [id number] 02:49:00 Test Item Value Reference Range Interpretation Comments THYROID STIMULATING HORMONE 1.32 uIU/mL 0.35-4.94 (BEAKER) (test code = 772) [id number] 02:37:00 Test Item Value Reference Range Interpretation Comments MAGNESIUM (BEAKER) (test code = 1.6 mg/dL 1.6-2.6 627) CREATINE KINASE (CK)2018-04-24 02:37:00 Test Item Value Reference Range Interpretation Comments CREATINE KINASE TOTAL (BEAKER) (test 1983 U/L 29-200 H code = 380) CBC W/PLT COUNT & AUTO [id number] 01:03:00 Test Item Value Reference Range Interpretation [...] = 2801) RAD, CHEST, 1 VIEW, NON [id number] 23:44:00Reason for exam:->Syncope, rhabdomyolysisIs the patient ?->UnknownShould [...] MDReport Verified Date/Time: 04/23/2018 23:44:17 Reading Location: [address] Reading Room
--- NOTE | 2023-02-16 14:21 | RAD REPORT ---
EXAM DESCRIPTION: RAD - Shoulder Left 2 View - 02/16/2023 2:05 pm CLINICAL HISTORY: PAIN COMPARISON: No comparisons FINDINGS: Mild offsetting of the AC joint could represent a grade 1 separation if the patient is poi nt tender in the region. Mild glenohumeral arthritic changes. No fracture seen.
--- NOTE | 2023-02-16 14:24 | EDPHYS ---
Physician Documentation [facility] Name: Sherita Patel Age: 47 yrs Sex: Female : 1975 Arrival Date: 02/16/2023 Time: 12:09 Bed 12 Private MD: ED Physician Abih Arroyo HPI: 02/16 12:37 This 47 yrs old Female presents to ER via Wheelchair with complaints of Shoulder Pain. kb 12:37 Patient is a 47-year-old female who presents for left shoulder pain that started 3 days kb ago. States she felt a pop while she was changing her shirt off and has had pain since then. Reports she is able to move her upper extremity but it is painful. Historical: - Allergies: 12:28 SHELLFISH; hb - PMHx: 12:28 Asthma; CHF; Diabetes - IDDM; Hyperlipidemia; PE; Renal Disease Stage 3; hb - PSHx: 12:28 section; Total abdominal hysterectomy; hb - Immunization history:: Adult Immunizations up to date. - Social history:: Smoking status: Patient denies any tobacco usage or history of. ROS: 12:34 Constitutional: Negative for fever, chills, and weight loss, kb 12:34 MS/extremity: Positive for pain, tenderness, of the anterior aspect of left shoulder, 12:34 All other systems are negative, Exam: 12:34 Constitutional: This is a well developed, well nourished patient who is awake, alert, kb and in no acute distress. Head/Face: Normocephalic, atraumatic. ENT: Moist Mucous membranes Cardiovascular: Regular rate Respiratory: Respirations even and unlabored. No increased work of breathing. Talking in full sentences Skin: Warm, dry with normal turgor. Normal color. Neuro: Awake and alert, GCS 15, oriented to person, place, time, and situation. Moves all extremities. Normal gait. 12:34 Musculoskeletal/extremity: Extremities: grossly normal except: noted in the left trapezius: decreased ROM, pain, tenderness, ROM: limited active range of motion due to pain, Circulation is intact in all extremities. Sensation intact. Vital Signs: 12:26 BP 201 / 90; Pulse 67; Resp 16; Temp 98.2; Pulse Ox 100% on R/A; Weight 109 kg; Height hb 5 ft. 5 in. ; Pain 10/10; 14:54 Resp 18; Temp 98.8(T); ap3 12:26 Body Mass Index 39.99 (109.00 kg, 165.1 cm) hb 12:26 Pain Scale: Adult hb MDM: 12:13 Patient medically screened. kb 12:36 Differential diagnosis: Anterior dislocation with fracture, Anterior dislocation kb without fracture, Posterior dislocation with fracture, Posterior dislocation without fracture, humeral head fracture, tendonitis. Data reviewed: vital signs, nurses notes. 14:23 Counseling: I had a detailed discussion with the patient and/or guardian regarding the kb historical points, exam findings, and any diagnostic results supporting the discharge/admit diagnosis, radiology results, the need for outpatient follow up, a orthopedic surgeon, to return to the emergency department if symptoms worsen or persist or if there are any questions or concerns that arise at home. 02/16 12:28 Order name: Shoulder Left (2 View) XRAY; Complete Time: 14:23 kb Administered Medications: No medications were administered Disposition: 15:36 Co-signature as Attending Physician, Abhi Arroyo MD I reviewed the patient's care rn provided by the Advanced Practice Provider and agree with the diagnosis and treatment plan. Disposition Summary: 02/16/23 14:24 Discharge Ordered Notes: Location: Home kb Condition: Stable kb Diagnosis - Pain in left shoulder kb Followup: kb - With: Emergency Department - When: As needed - Reason: Worsening of condition Followup: kb - With: Private Physician - When: 2 - 3 days - Reason: Recheck today's complaints, Continuance of care, Re-evaluation by your physician Discharge Instructions: - Discharge Summary Sheet kb - Musculoskeletal Pain kb - Shoulder Pain, Snnw-ga-Fvvs kb Forms: - Medication Reconciliation Form kb - Thank You Letter kb - Antibiotic Education kb - Prescription Opioid Use kb - Patient Portal Instructions kb - Leadership Thank You Letter kb Prescriptions: - acetaminophen-codeine 300-30 mg Oral tablet - take 1 tablet ORAL route every 8 hours As needed; 10 tablet; Refills: 0, kb Product Selection Permitted Signatures: Dispatcher [employer] Caryn Benitez, SHANIQUA MEHTA-Abhi Campbell MD MD rn Baxter, Heather, RN RN hb Corrections: (The following items were deleted from the chart) 12: 12:28 PMHx: Diabetes - NIDDM; hb hb 12:29 12:28 PMHx: Renal Disease; hb hb 12:36 12:34 MS/extremity: Positive for pain, of the anterior aspect of left shoulder, kb kb 12:37 12:34 MS/extremity: Positive for pain, tenderness, of the left trapezius, kb kb 12:37 12:34 Musculoskeletal/extremity: Extremities: grossly normal except: noted in the kb anterior aspect of left shoulder: decreased ROM, pain, ROM: limited active range of motion due to pain, Circulation is intact in all extremities. Sensation intact. kb
--- NOTE | 2023-02-16 14:24 | ER ---
Nurse's Notes [facility] Name: Sherita Patel Age: 47 yrs Sex: Female : 1975 Arrival Date: 02/16/2023 Time: 12:09 Bed 12 Private MD: Diagnosis: Pain in left shoulder Presentation: 02/16 12:26 Chief complaint: [place] and heard a pop when taking shirt off 3 days ago, c/o severe left hb shoulder pain 01/13. Coronavirus screen: At this time, the client does not indicate any symptoms associated with coronavirus-19. Ebola Screen: No symptoms or risks identified at this time. Initial Sepsis Screen: Does the patient meet any 2 criteria? No. Patient's initial sepsis screen is negative. Does the patient have a suspected source of infection? No. Patient's initial sepsis screen is negative. Risk Assessment: Do you want to hurt yourself or someone else? Patient reports no desire to harm self or others. Onset of symptoms was February 13, 2023. 12:26 Method Of Arrival: Wheelchair 12:26 Acuity: ERNST 4 hb Triage Assessment: 14:52 General: Appears uncomfortable, Behavior is calm, cooperative, appropriate for age. ap3 Pain: Complains of pain in left trapezius and anterior aspect of left shoulder. Neuro: Level of Consciousness is awake, alert, obeys commands, Oriented to person, place, time, situation, Appropriate for age. Cardiovascular: Patient's skin is warm and dry. Respiratory: Airway is patent Respiratory effort is even, unlabored, Respiratory pattern is regular, symmetrical. Historical: - Allergies: 12:28 SHELLFISH; hb - PMHx: 12:28 Asthma; CHF; Diabetes - IDDM; Hyperlipidemia; PE; Renal Disease Stage 3; hb - PSHx: 12:28 section; Total abdominal hysterectomy; hb - Immunization history:: Adult Immunizations up to date. - Social history:: Smoking status: Patient denies any tobacco usage or history of. Screenin:52 [facility] ED Fall Risk Assessment (Adult) History of falling in the last 3 months, ap3 including since admission Yes- single mechanical fall (1 pt) Confusion or Disorientation No (0 pts) Intoxicated or Sedated No (0 pts) Impaired Gait No (0 pts) Mobility Assist Device Used Yes (1 pt) Altered Elimination No (0 pt). Abuse screen: Denies threats or abuse. Nutritional screening: No deficits noted. Tuberculosis screening: No symptoms or risk factors identified. Vital Signs: 12:26 BP 201 / 90; Pulse 67; Resp 16; Temp 98.2; Pulse Ox 100% on R/A; Weight 109 kg; Height hb 5 ft. 5 in. ; Pain 10/10; 14:54 Resp 18; Temp 98.8(T); ap3 12:26 Body Mass Index 39.99 (109.00 kg, 165.1 cm) hb 12:26 Pain Scale: Adult hb ED Course: 12:10 Patient arrived in ED. rg4 12:11 Caryn Farris [facility]-C [facility]. kb 12:11 Abhi Arroyo MD is Attending Physician. kb 12:28 Triage completed. hb 12:29 Arm band placed on. hb 14:07 Shoulder Left (2 View) XRAY In Process Unspecified. EDMS 14:52 Inga Chau, RN is Primary Nurse. ap3 14:53 Patient has correct armband on for positive identification. Adult w/ patient. Provided ap3 Education on: discharge instructions. 14:53 No provider procedures requiring assistance completed. Patient did not have IV access ap3 during this emergency room visit. Administered Medications: No medications were administered Medication: 14:53 VIS not applicable for this client. ap3 Outcome: 14:24 Discharge ordered by MD. kb 14:53 Discharged to home with family, ap3 14:53 Condition: good 14:53 Discharge instructions given to patient, family, Instructed on discharge instructions, follow up and referral plans. Demonstrated understanding of instructions, follow-up care, medications, Prescriptions given X 1, 14:54 Patient left the ED. ap3 Signatures: Dispatcher [employer] ED[facility] Caryn Farris FNP-C FNP-Ckb Baxter, Heather, RN RN hb Garcia, Rubi rg4 Inga Chau RN RN ap3 Corrections: (The following items were deleted from the chart) 12: 12:28 PMHx: Diabetes - NIDDM; hb hb 12: 12:28 PMHx: Renal Disease; hb hb
[2023-02-16 15:03] VITALS: BP 201/90; O2SAT 100
[2023-02-16 15:04] VITALS: TEMP 98.8
== END 2023-02-16 14:54 | disposition home or self-care (01) ==
LOC: ER 12:09
DX: M25.512 Pain in left shoulder (principal); E78.5 Hyperlipidemia, unspecified; E11.22 Type 2 diabetes mellitus with diabetic chronic kidney disease; N18.30 Chronic kidney disease, stage 3 unspecified; I50.9 Heart failure, unspecified; J45.909 Unspecified asthma, uncomplicated
CPT/HCPCS: 99283

== ENCOUNTER → 2023-05-04 | Emergency (ER) | payer OTHER ==
[~2023-05-04] MED LIST: FAMOTIDINE 20 MG/2 ML VIAL IV ONE; NA CHLORIDE 0.9% 250 ML ONE; ONDANSETRON 4 MG/2 ML VIAL ONE; PROMETHAZINE INJ 25 MG/ML AMP ONE
--- NOTE | 2023-05-04 10:49 | RAD REPORT ---
EXAM DESCRIPTION: CT - Abdomen Pelvis Wo Contrast - 05/04/2023 10:32 am CLINICAL HISTORY: Abdominal pain COMPARISON: April 2022 TECHNIQUE: Computed axial tomography of the abdomen and pelvis was obtained. IV and oral contrast we re not requested. All CT scans are performed using dose optimization technique as appropriate and may include automated exposure control or mA/KV adjustment according to patient size. FINDINGS: The evaluation of solid organs, vessels and bowel is limited secondary to the lack of con trast administration. The liver, spleen, pancreas, adrenals and appear grossly normal. The kidneys are mildly diminished in size likely secondary to chronic disease. Atherosclerotic disease The appendix is normal. There is no evidence of diverticulitis. Hysterectomy. No adnexal mass Small to moderate focal hernia IMPRESSION: No acute abnormality is displayed.
[2023-05-04 11:22] LABS: Absolute Lymphocytes (CBC) 1.3 K/uL (0.7-4.9); Hematocrit 42.9 % (36.0-45.0); Lymphocytes % 12.8 % (15.3-44.8); MCV 92.9 fL (80-100); MPV 10.4 fL (7.6-11.3); Platelets 174 thou/uL (152-406); RBC Red Blood Cell Count 4.61 M/uL (3.86-4.86)
[2023-05-04 11:47] LABS: Albumin 3.6 g/dL (3.4-5.0); Bilirubin Total 0.9 mg/dL (0.2-1.0); Potassium 3.3 mEq/L (3.5-5.1); Protein, Total 8.7 g/dL (6.4-8.2)
--- NOTE | 2023-05-04 12:00 | EDPHYS ---
Physician Documentation [facility] Name: Sherita Patel Age: 48 yrs Sex: Female : 1975 Arrival Date: 05/04/2023 Time: 09:58 Bed 3 Private MD: ED Physician Pavan Hadley HPI: 05/04 10:12 This 48 yrs old Female presents to ER via Wheelchair with complaints of Vomiting. sb4 10:12 patient reports nonstop nausea and vomiting since Thursday evening. her ozempic dose was sb4 doubled on Thursday. some diarrhea. no fevers, no chest pain, no sob, no abd pain, no sick contacts. 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 - Social history:: Smoking status: unknown. ROS: 10:12 Constitutional: Negative for fever, chills, and weight loss, sb4 10:12 Abdomen/GI: Positive for nausea and vomiting, 10:12 All other systems are negative, Exam: 10:12 Head/Face: Normocephalic, atraumatic. Eyes: Extra-ocular motions intact. Periorbital sb4 areas with no swelling, redness, or edema. ENT: Mucous membranes moist. Cardiovascular: Regular rate and rhythm with a normal S1 and S2. Respiratory: Lungs have equal breath sounds bilaterally, clear to auscultation and percussion. No rales, rhonchi or wheezes noted. No increased work of breathing, no retractions or nasal flaring. Skin: Warm, dry with normal turgor. Normal color with no rashes, no lesions, and no evidence of cellulitis. MS/ Extremity: Pulses equal, no cyanosis. Neurovascular intact. Full, normal range of motion. Neuro: Awake and alert, GCS 15, oriented to person, place, time, and situation. Motor strength 5/5 in all extremities. Sensory grossly intact. 10:12 Constitutional: The patient appears alert, awake, obese, uncomfortable, 10:12 Abdomen/GI: Inspection: abdomen appears normal, obese Bowel sounds: normal, Palpation: moderate abdominal tenderness, in the left upper quadrant, Vital Signs: 10:26 BP 159 / 103; Pulse 82; Resp 17; Pulse Ox 97% ; ll1 13:10 BP 152 / 78; Pulse 81; Resp 18; Pulse Ox 98% ; ll1 MDM: 10:11 Patient medically screened. sb4 10:12 Differential diagnosis: gastritis, cholecystitis, pancreatitis, gastroenteritis, sb4 hypovolemic, electrolyte abnormality, medication reaction, gastroparesis. 11:59 Data reviewed: vital signs, nurses notes, lab test result(s), radiologic studies, and sb4 as a result, I will discharge patient. Historians other than the Patient: Spouse/Significant Other: . Care significantly affected by the following chronic conditions: Diabetes, Hypertension, Congestive Heart Failure, Obesity, Chronic Kidney Disease. Counseling: I had a detailed discussion with the patient and/or guardian regarding the historical points, exam findings, and any diagnostic results supporting the discharge/admit diagnosis, the presence of at least one elevated blood pressure reading (>120/80) during this emergency department visit, lab results, radiology results, to return to the emergency department if symptoms worsen or persist or if there are any questions or concerns that arise at home. 05/04 10:11 Order name: CBC with Diff; Complete Time: 11:24 sb4 05/04 10:11 Order name: CMP; Complete Time: 11:48 sb4 05/04 10:11 Order name: Lipase; Complete Time: 11:48 sb4 05/04 10:11 Order name: CT Abd/Pelvis - Without Contrast; Complete Time: 10:52 sb4 05/04 10:11 Order name: IV Saline Lock; Complete Time: 10:21 sb4 05/04 10:11 Order name: Labs collected and sent; Complete Time: 10:21 sb4 05/04 11:53 Order name: PO challenge; Complete Time: 12:15 sb4 Administered Medications: 11:20 Drug: NS 0.9% IV 250 ml IV at 1 bolus Per protocol; 1000 mL bolus Route: IV; Rate: 1 ll1 bolus; Site: right antecubital; 13:21 Follow up: Response: No adverse reaction; IV Status: Completed infusion; IV Intake: ll1 250ml 11:20 Drug: Famotidine IVP 20 mg IVP once; dilute with 10 mL 0.9% NaCl; give over 2 minutes ll1 Route: IVP; Site: right antecubital; 13:21 Follow up: Response: No adverse reaction ll1 11:20 Drug: Ondansetron IVP 4 mg IVP once; over 2 minutes Route: IVP; Site: right antecubital;ll1 13:21 Follow up: Response: No adverse reaction ll1 12:33 Drug: Promethazine IVP 12.5 mg IVP once Route: IVP; Site: right antecubital; ll1 13:21 Follow up: Response: No adverse reaction; Nausea is decreased; RASS: Alert and Calm (0) ll1 Disposition: 16:50 I was immediately available on-site in the Emergency Department for consultation in the ms3 care of the patient. Disposition Summary: 05/04/23 12:00 Discharge Ordered Notes: Location: Home sb4 Problem: new sb4 Symptoms: have improved sb4 Condition: Stable sb4 Diagnosis - Nausea with vomiting, unspecified sb4 Followup: sb4 - With: Emergency Department - When: As needed - Reason: Trouble breathing, Worsening of condition Discharge Instructions: - Discharge Summary Sheet sb4 - Nausea and Vomiting, Adult sb4 Forms: - Medication Reconciliation Form sb4 - Thank You Letter sb4 - Antibiotic Education sb4 - Prescription Opioid Use sb4 - Patient Portal Instructions sb4 - Leadership Thank You Letter sb4 Prescriptions: - Zofran 4 mg Oral Tablet - take 1 tablet ORAL route every 12 hours As needed; 20 tablet; Refills: 0, sb4 Product Selection Permitted Signatures: Dispatcher [employer] Rose Hay RN RN Rolanda Mesa RN RN ll1 Pavan Hadley DO DO ms3 Keara Valle PA-C PA-C sb4 Corrections: (The following items were deleted from the chart) 10:23 10:07 PMHx: Renal Disease Stage 3; ll1 sb4
--- NOTE | 2023-05-04 12:00 | ER ---
Nurse's Notes [facility] Name: Sherita Patel Age: 48 yrs Sex: Female : 1975 Arrival Date: 05/04/2023 Time: 09:58 Bed 3 Private MD: Diagnosis: Nausea with vomiting, unspecified Presentation: 05/04 10:07 Chief complaint: Patient states: N/V since Thursday. Coronavirus screen: Client denies ll1 travel out of the [place] in the last 14 days. nausea, vomiting. Ebola Screen: Patient denies travel to an Ebola-affected area in the 21 days before illness onset. Initial Sepsis Screen: Does the patient meet any 2 criteria? No. Patient's initial sepsis screen is negative. Does the patient have a suspected source of infection? Yes: Acute abdominal pain. Initial Sepsis Screen:. Risk Assessment: Do you want to hurt yourself or someone else? Patient reports no desire to harm self or others. Onset of symptoms was April 29, 2023. 10:07 Method Of Arrival: Wheelchair ll1 10:07 Acuity: ERNST 3 ll1 Triage Assessment: 10:08 General: Appears uncomfortable, ill, Behavior is calm, cooperative, appropriate for 1 age. GI: Reports nausea, vomiting. 13:21 Pain: Denies pain. 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 - Social history:: Smoking status: unknown. Screenin:04 [facility] ED Fall Risk Assessment (Adult) History of falling in the last 3 months, ph including since admission No falls in past 3 months (0 pts) Confusion or Disorientation No (0 pts) Intoxicated or Sedated No (0 pts) Impaired Gait No (0 pts) Mobility Assist Device Used No (0 pt) Altered Elimination No (0 pt) Score/Fall Risk Level 0 - 2 = Low Risk Oriented to surroundings, Maintained a safe environment, Provided non-skid footwear, Hourly rounding (assess needs \T\ fall precautionary measures) done. Abuse screen: Denies threats or abuse. Denies injuries from another. Nutritional screening: No deficits noted. Tuberculosis screening: No symptoms or risk factors identified. Assessment: 11:03 Reassessment: Courtney GARCIAS at bedside for US guided IV start. ph 11:28 Reassessment: No changes from previously documented assessment. Patient and/or family ll1 updated on plan of care and expected duration. Pain level reassessed. Patient is alert, oriented x 3, equal unlabored respirations, skin warm/dry/pink. 12:33 Reassessment: No changes from previously documented assessment. Patient and/or family ll1 updated on plan of care and expected duration. Pain level reassessed. Patient is alert, oriented x 3, equal unlabored respirations, skin warm/dry/pink. 13:10 Reassessment: No changes from previously documented assessment. Patient and/or family ll1 updated on plan of care and expected duration. Pain level reassessed. Patient states feeling better. 13:14 GI: Abdomen is round. ll1 Vital Signs: 10:26 BP 159 / 103; Pulse 82; Resp 17; Pulse Ox 97% ; ll1 13:10 BP 152 / 78; Pulse 81; Resp 18; Pulse Ox 98% ; ll1 ED Course: 10:02 Patient arrived in ED. im 10:04 Keara Valle PA-C is PHCP. sb4 10:04 Pavan Hadley DO is Attending Physician. sb4 10:07 Arm band placed on Patient placed in an exam room, on a stretcher. ll1 10:08 Triage completed. ll1 10:21 Rolanda Mesa, RN is Primary Nurse. ll1 10:21 Primary Nurse role handed off by Rolanda Mesa, KATERINE ph 10:21 Rose Day, KATERINE is Primary Nurse. ph 10:34 CT Abd/Pelvis - Without Contrast In Process Unspecified. EDMS 11:04 Patient has correct armband on for positive identification. Client placed on continuous ph cardiac and pulse oximetry monitoring. NIBP monitoring applied. 11:05 Missed attempt(s): 22 gauge in right upper arm. Bleeding controlled, band aid applied, ll1 catheter tip intact. 11:11 Inserted saline lock: 20 gauge in right antecubital area, using aseptic technique. nj1 ,using aseptic technique. Ultrasound guided. Catheter tip well visualized within vasculature during placement. Blood collected. 13:11 No provider procedures requiring assistance completed. IV discontinued, intact, ll1 bleeding controlled, No redness/swelling at site. Pressure dressing applied. 13:21 Provided Education on: n/a. ll1 Administered Medications: 11:20 Drug: NS 0.9% IV 250 ml IV at 1 bolus Per protocol; 1000 mL bolus Route: IV; Rate: 1 ll1 bolus; Site: right antecubital; 13:21 Follow up: Response: No adverse reaction; IV Status: Completed infusion; IV Intake: ll1 250ml 11:20 Drug: Famotidine IVP 20 mg IVP once; dilute with 10 mL 0.9% NaCl; give over 2 minutes ll1 Route: IVP; Site: right antecubital; 13:21 Follow up: Response: No adverse reaction 1 11:20 Drug: Ondansetron IVP 4 mg IVP once; over 2 minutes Route: IVP; Site: right antecubital;1 13:21 Follow up: Response: No adverse reaction [facility] 12:33 Drug: Promethazine IVP 12.5 mg IVP once Route: IVP; Site: right antecubital; 1 13:21 Follow up: Response: No adverse reaction; Nausea is decreased; RASS: Alert and Calm (0) [facility] Medication: 11:04 VIS not applicable for this client. ph Intake: 13:21 IV: 250ml; Total: 250ml. 1 Outcome: 12:00 Discharge ordered by . sb4 13:14 Patient left the ED. 1 13:14 Discharged to home via wheelchair, 1 13:14 Condition: stable 13:14 Discharge instructions given to patient, family, Instructed on discharge instructions, follow up and referral plans. medication usage, Demonstrated understanding of instructions, follow-up care, medications, Prescriptions given X 1, Signatures: Dispatcher [employer] Rose Hay RN RN ph Lewis, Lynsay, RN RN ll1 Keara Valle, PA-C PATanyaC sb4 Courtney Reynolds RN RN nj1 Melodie Mejia Corrections: (The following items were deleted from the chart) 10:23 10:07 PMHx: Renal Disease Stage 3; ll1 sb4
[2023-05-04 13:55] VITALS: BP 159/103; O2SAT 97
== END ==
LOC: ER 09:58
DX: R11.2 Nausea with vomiting, unspecified (principal); E11.22 Type 2 diabetes mellitus with diabetic chronic kidney disease; N18.6 End stage renal disease; Z91.013 Allergy to seafood
CPT/HCPCS: 85025; 36415; 83690; 80053; 74176; J2550; J2405; J7050

== ENCOUNTER 2023-08-13 10:30 | Day surgery (SDC) | payer OTHER ==
--- NOTE | 2023-08-11 12:45 | RAD REPORT ---
EXAM DESCRIPTION: RAD - Chest Pa And Lat (2 Views) - 08/11/2023 12:37 pm CLINICAL HISTORY: PRE OP. Hypertension COMPARISON: Chest Single View dated 06/11/2018; Abdomen 1 View (KUB) dated 06/10/2018; Chest Single View dated 06/10/2018; Chest Single View dated 06/09/2018 TECHNIQUE: PA and lateral views of the chest were obtained. FINDINGS: The lungs are clear. Heart size is normal and central vasculature is within normal limits. No pleural effusion or pneumothorax seen. No acute bony finding noted. IMPRESSION: No acute cardiopulmonary process.
[2023-08-11 13:33] LABS: Absolute Eosinophils 0.2 K/uL (0-0.5); Absolute Lymphocytes (CBC) 1.4 K/uL (0.7-4.9); Absolute Monocytes 0.8 K/uL (0.1-1.3); Absolute Neutrophil 4.4 K/uL (1.8-8.0); Basophils % 0.6 % (0-1.3); Eosinophils % 2.3 % (0-4.4); Hemoglobin 12.1 g/dL (12.0-15.0); Lymphocytes % 21.1 % (15.3-44.8); MCH 30.1 pg (27.0-35.0); MCHC 32.6 g/dL (32.0-36.0); MCV 92.3 fL (80-100); MPV 10.5 fL (7.6-11.3); Monocytes % 11.2 % (3.3-12.3); Neutrophils % 64.8 % (41.7-73.7); Nucleated Red Blood Cells % 0.1 % (0-0); Platelets 182 thou/uL (152-406); RBC Red Blood Cell Count 4.01 M/uL (3.86-4.86); Red Cell Distribution Width 14.3 % (12.1-15.2)
[2023-08-11 13:34] LABS: Anion Gap 9.1 mEq/L (5.0-15.0); PT Prothrombin Time 11.4 SECONDS (9.5-12.5); PTT, Activated Partial Thromb 40.3 SECONDS (24.3-36.9); Potassium 4.1 mEq/L (3.5-5.1); Protime INR 1.04
--- NOTE | 2023-08-11 13:58 | EKG ---
Test Date: 2023-08-11 Test Time: 12:26:13 Fireworks Display Specialist: IRVIN MEASUREMENT RESULTS: Intervals: Rate: 66 KS: 178 QRSD: 92 QT: 474 QTc: 496 [place]: P: 21 KS: 178 QRS: -33 T: 72 INTERPRETIVE STATEMENTS: Normal sinus rhythm Possible Left atrial enlargement Left axis deviation Prolonged QT Abnormal ECG Compared to ECG 04/21/2022 06:01:41 No significant changes Electronically Signed On 08-11-23 13:57:38 CDT by Gunnar Cobian
[2023-08-13] MEDS ORDERED: NA CHLORIDE 0.9% 500 ML ONE (10:50)
[2023-08-13 11:14] VITALS: TEMP 97.5
[2023-08-13] MEDS ORDERED: LIDOCAINE 1% 20 ML MDV ONE (12:35)
[2023-08-13] MEDS ORDERED: VERAPAMIL HCL 10 MG/4 ML VIAL IV ONE (12:35)
[2023-08-13] MEDS ORDERED: HEPA 1000U/500MLS 2,000 UNIT/1,000 ML BAG IV ONE (12:35)
[2023-08-13] MEDS ORDERED: MIDAZOLAM HCL 2 MG/2 ML INJ ONE (12:35)
[2023-08-13] MEDS ORDERED: FENTANYL CITR 100 MCG/2 ML ONE (12:35)
[2023-08-13] MEDS ORDERED: HEPARIN 5000 UNIT/ML 1 ML VIAL ONE (12:36)
[2023-08-13] MEDS ORDERED: HEPARIN 10,000 UNIT/10 ML VIAL IV ONE (12:36)
[2023-08-13] MEDS ORDERED: ATROPINE SULF 1 MG/10 ML SYR IV ONE (12:36)
[2023-08-13 16:09] VITALS: BP 117/58; O2SAT 96
--- NOTE | 2023-08-14 01:30 | OP ---
Date of Procedure: 08/13/2023 Surgeon: JEFF SIM Procedure Performed: Peripheral angiogram with runoff. Indication: Peripheral vascular disease. Access: Right radial artery 6-Maori, closed with TR band. Complications: None. Bleeding: Less than 50 mL. Anesthesia: Total sedation time was 30 minutes. Description Of Procedure: After risks, benefits, and alternatives were explained, the patient agreed to procedure and signed informed consent. [facility] prepped and draped in usual sterile fashion. Then, I accessed right radial artery using pedi atric micropuncture kit, placed a 6-Maori Slender sheath, and took a 4-Maori long pigtail catheter, placed in distal aorta, performed distal aortogram with runoff, and then removed the catheter and th e sheath, placed TR band with good hemostasis. Findings: 1.Distal aorta widely patent. 2.Right lower extremity: There is proximal 20% right external iliac, common femoral, profunda, and SFA widely patent. Some luminal irregularities in the SFA. Anterior tibial is patent. Posterior ti bial is occluded proximally and the peroneal is patent. 3.Left lower extremity: Proximal 20% stenosis. The external iliac, internal iliac, common femoral, profunda, and SFA were all widely patent and triple vessel is widely patent below the knee. Conclusion: Mild peripheral vascular disease as above. Recommendation: Medical management. /MODL Voice ID: [id number] Report ID: [id number]
== END 2023-08-13 16:05 | disposition home or self-care (01) ==
LOC: CCL 10:30
PROVIDERS: ATTEND Internal Medicine
DX: I70.223 Atherosclerosis of native arteries of extremities with rest pain, bilateral legs (principal); I70.92 Chronic total occlusion of artery of the extremities; I25.10 Atherosclerotic heart disease of native coronary artery without angina pectoris; I12.0 Hypertensive chronic kidney disease with stage 5 chronic kidney disease or end stage renal disease; E11.22 Type 2 diabetes mellitus with diabetic chronic kidney disease; N18.6 End stage renal disease; I35.0 Nonrheumatic aortic (valve) stenosis; I48.0 Paroxysmal atrial fibrillation; I51.7 Cardiomegaly; E78.5 Hyperlipidemia, unspecified; K21.9 Gastro-esophageal reflux disease without esophagitis; Z99.2 Dependence on renal dialysis; Z86.73 Personal history of transient ischemic attack (TIA), and cerebral infarction without residual deficits; Z79.01 Long term (current) use of anticoagulants; Z79.899 Other long term (current) drug therapy; Z91.013 Allergy to seafood
CPT/HCPCS: 36200; 36415; 71046; 75630; 76937; 80048; 82947; 85025; 85610; 85730; 93005; 99152; 99153; C1887; C1893; J0461; J1644; J2001; J2250; J3010; J7040; Q9966

== ENCOUNTER 2024-01-14 06:27 | Day surgery (SDC) | payer OTHER ==
[2023-12-31 11:30] LABS: Absolute Basophils 0.1 K/uL (0-0.5); Absolute Eosinophils 0.2 K/uL (0-0.5); Absolute Lymphocytes (CBC) 1.7 K/uL (0.7-4.9); Absolute Monocytes 0.7 K/uL (0.1-1.3); Absolute Neutrophil 4.6 K/uL (1.8-8.0); Basophils % 0.7 % (0-1.3); Eosinophils % 3.3 % (0-4.4); Hematocrit 35.9 % (36.0-45.0); Hemoglobin 11.6 g/dL (12.0-15.0); Lymphocytes % 23.5 % (15.3-44.8); MCH 30.2 pg (27.0-35.0); MCHC 32.4 g/dL (32.0-36.0); MCV 93.1 fL (80-100); MPV 10.2 fL (7.6-11.3); Monocytes % 9.9 % (3.3-12.3); Neutrophils % 62.6 % (41.7-73.7); Platelets 170 thou/uL (152-406); RBC Red Blood Cell Count 3.85 M/uL (3.86-4.86); Red Cell Distribution Width 15.5 % (12.1-15.2)
[2023-12-31 11:36] LABS: PT Prothrombin Time 11.1 SECONDS (9.4-12.5); PTT, Activated Partial Thromb 36.5 SECONDS (24.3-36.9); Protime INR 0.99
[2023-12-31 11:47] LABS: Anion Gap 14.2 mEq/L (5.0-15.0); Potassium 4.2 mEq/L (3.5-5.1)
--- NOTE | 2023-12-31 12:07 | EKG ---
Test Date: 2023-12-31 Test Time: 10:05:06 Quality Measurement Specialist: [place] MEASUREMENT RESULTS: Intervals: Rate: 70 DE: 178 QRSD: 102 QT: 444 QTc: 479 [place]: P: 66 DE: 178 QRS: -61 T: 85 INTERPRETIVE STATEMENTS: Normal sinus rhythm Left axis deviation Abnormal ECG Compared to ECG 08/11/2023 12:26:13 Prolonged QT interval no longer present Electronically Signed On 12-31-23 12:06:45 CDT by Khris Dangelo
[~2024-01-14 06:27] MED LIST changes: -FAMOTIDINE 20 MG/2 ML VIAL IV ONE; -NA CHLORIDE 0.9% 250 ML ONE; +NA CHLORIDE 0.9% 500 ML ONE; -ONDANSETRON 4 MG/2 ML VIAL ONE; -PROMETHAZINE INJ 25 MG/ML AMP ONE
[2024-01-14] MEDS ORDERED: FENTANYL CITR 100 MCG/2 ML ONE (06:32)
[2024-01-14] MEDS ORDERED: MIDAZOLAM HCL 2 MG/2 ML INJ ONE (06:32)
[2024-01-14] MEDS ORDERED: HEPARIN 10,000 UNIT/10 ML VIAL IV ONE (06:39)
[2024-01-14] MEDS ORDERED: LIDOCAINE 1% 20 ML MDV ONE (06:39)
[2024-01-14] MEDS ORDERED: HEPA 1000U/500MLS 2,000 UNIT/1,000 ML BAG IV ONE (06:39)
[2024-01-14] MEDS ORDERED: ATROPINE SULF 1 MG/10 ML SYR IV ONE (06:40)
[2024-01-14] MEDS ORDERED: HEPARIN 5000 UNIT/ML 1 ML VIAL ONE (06:40)
[2024-01-14] MEDS ORDERED: CLOPIDOGREL 75 MG TABLET ONE (06:40)
[2024-01-14] MEDS ORDERED: VERAPAMIL HCL 10 MG/4 ML VIAL IV ONE (06:40)
[2024-01-14] MEDS ORDERED: TICAGRELOR 90 MG TABLET PO ONE (06:41)
[2024-01-14] MEDS ORDERED: ASPIRIN 325 MG TAB ONE (06:41)
[2024-01-14] MEDS ORDERED: NA CHLORIDE 0.9% 500 ML ONE (06:52)
[2024-01-14] MEDS ORDERED: HYDRALAZINE HCL 20 MG/ML VIAL ONE ×2 (08:05→08:07)
[2024-01-14 09:28] VITALS: TEMP 97.8
[2024-01-14 10:42] VITALS: BP 158/76; O2SAT 98
--- NOTE | 2024-01-14 23:09 | OP ---
Date of Procedure: 01/14/2024 Surgeon: JEFF SIM Procedures Performed: 1.Coronary angiogram. 2.Left heart catheterization. 3.Right heart catheterization. Indications: Aortic valve stenosis evaluation and chest pain. Access: 1.Right radial artery 6-Tanzanian, closed with TR band. 2.Right IJ 7-Tanzanian, closed with manual pressure. Complications: None. Bleeding: Less than 50 mL. Anesthesia: Total sedation time was 1 hour, used fentanyl and Versed. Description Of Procedure: After risks, benefits, and alternatives were explained, the patient agreed to procedure and signed informed consent. The patient was brought into cardiac catheterization [facility], prepped and draped in usual sterile fashion. Then, I accessed right radial artery using pedi atric micropuncture kit, placed 6-Tanzanian Slender sheath, and then I accessed right IJ using micropunc ture kit, ultrasound guidance, and placed 7-Tanzanian [place] sheath. I then took a 7-Tanzanian balloon-t ipped [place] catheter through the IJ access into the right atrium, right ventricle, pulmonary artery an d wedge, obtained waveform and pressures, and then obtained a cardiac output by thermodilution method and then removed the [place] and IJ sheath was removed. Manual pressure was applied with good hemostas is. Then, we took 5-Tanzanian [place] 4 catheter into the aortic root over a J-wire, engaged left main, t hen right coronary artery, took standard views. Then, aortic valve was crossed and exchanged for [place] catheter and measured simultaneous pressure in the LV and in the aorta and pullback did not rec ord any internal gradient, then removed the catheter and the sheath, placed TR band with good hemosta sis. Findings: Coronary angiogram: 1.Left main is normal. 2.LAD has proximal 50% stenosis. Rest of it is normal. 3.Left circumflex; proximal 50%. OM branch is normal. Rest of left circumflex is normal. 4.RCA, it is normal. Right heart catheterization numbers: RA pressure was 11, RV pressure was 51/2, mean of 11, PA pressu re was 51/23, mean of 34. Pulmonary wedge pressure was 20. LVEDP was 23. The mean gradient across aortic valve is 75 mmHg. Aortic valve area 0.67 cm2 and the average cardiac output was 6.1 L/minute. Conclusions: 1.Moderate coronary artery disease. 2.Severe aortic valve stenosis with elevated LVEDP. Recommendation: Evaluate for aortic valve replacement. SR/MODL Voice ID: [id number] Report ID: [id number]
== END 2024-01-14 10:50 | disposition home or self-care (01) ==
LOC: PRE 06:27
PROVIDERS: ATTEND Internal Medicine
DX: I35.0 Nonrheumatic aortic (valve) stenosis (principal); I25.10 Atherosclerotic heart disease of native coronary artery without angina pectoris; I48.0 Paroxysmal atrial fibrillation; I65.29 Occlusion and stenosis of unspecified carotid artery; E78.5 Hyperlipidemia, unspecified; N18.6 End stage renal disease; Z99.2 Dependence on renal dialysis; Z79.899 Other long term (current) drug therapy; Z91.013 Allergy to seafood
CPT/HCPCS: 93005; 85025; 80048; 36415; 85610; 85730; 93460; 76937; C1893; Q9966; J1644; J0360 ×2; J2001; J2250; J3010; J7040 ×2; 99152; 99153; J0461